=== PATIENT | female | born 2000 | race Caucasian/White ===

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

== ENCOUNTER 2021-03-23 | Emergency (ER) | payer OTHER, SELFPAY ==
--- NOTE | ~2021-03-23 | XR_ITS ---
XR chest 2V DATE: 03/23/2021 00:46 INDICATION: Palpitations TECHNIQUE: PA and lateral views COMPARISON: 10/05/2020 PA and lateral chest FINDINGS: Bilateral thoracolumbar spinal rods and pedicle screws are again noted. Normal heart size. No hilar or mediastinal enlargement. No pulmonary infiltrate or consolidation, pleural effusion or pulmonary vascular congestion or pneumo thorax is detected. IMPRESSION: No active cardiopulmonary disease Reviewed, dictated and finalized at location A.
[2021-03-23 00:05] VITALS: BP 118/84; PULSE 92; RESP 19; TEMP 36.8; O2SAT 100
--- NOTE | 2021-03-23 00:16 | ECG_ITS ---
Measurements Intervals [place] Rate: 82 P: 23 PA: 149 QRS: 17 QRSD: 84 T: 19 QT: 352 QTc: 412 Interpretive Statements SINUS RHYTHM WITH SINUS ARRHYTHMIA BASELINE ARTIFACT- I, II, III, AVR, AVL, AVF, V1, V4-V6 NORMAL ECG Electronically Signed On 03-23-2021 6:25:47 CDT by Orville Valdez D.O.
--- NOTE | 2021-03-23 00:27 | ED.ARRPALP ---
HPI - Arrhythmia/Palpitations General Chief Complaint: Arrhythmia/Palpitations Stated Complaint: Chest pain, tachycardia Time Seen by Provider: 03/23/21 00:06 Source: patient and family History of Present Illness HPI narrative: Patient presents with palpitations. Patient has a known history of tachycardia and is on corlinor. Is over the past couple weeks she has noted increase in her palpitations causing her dizziness and a sensation like she is going to pass out. Her symptoms are worse today so she wanted to come to the ER for evaluation. Her symptoms are palpitations and chest pain. Pain described as a squeezing sensation in the middle of her chest radiating up into her neck no clear aggravating or alleviating factors. She continues to have this sensation but it is improved. She denies recent fevers, cough, congestion, nausea, vomiting. Reports she been taking her medication as prescribed. She denies any urinary symptoms. Related Data Home Medications Medication Instructions Recorded Confirmed cinnamon bark 500 mg capsule 500 mg PO DAILY 07/19/20 docosahexaenoic acid 200 mg capsule mg PO 07/19/20 green tea leaf extract cap PO 07/19/20 liraglutide 0.6 mg/0.1 mL (18 mg/3 0.6 mg SUBCUT DAILY 07/19/20 mL) subcutaneous pen injector lorazepam 0.5 mg tablet 0.5 mg PO DAILY PRN 07/19/20 metformin 500 mg tablet 500 mg PO DAILY 07/19/20 omeprazole 40 mg capsule,delayed 40 mg PO DAILY 07/19/20 release pamabrom 50 mg tablet mg PO 07/19/20 zinc 50 mg tablet 50 mg PO DAILY 07/19/20 L norgest/e.estradiol-e.estrad 03/23/21 [Simpesse] blood sugar diagnostic [OneTouch 03/23/21 03/23/21 Ultra Test] blood-glucose meter [OneTouch 03/23/21 03/23/21 Ultra2 Meter] cetirizine mg 03/23/21 lancets [OneTouch Delica Plus 03/23/21 03/23/21 Lancet] liraglutide [Victoza 2-Librado] mg SUBCUT 03/23/21 metformin mg PO 03/23/21 pen needle, diabetic [BD 03/23/21 03/23/21 Ultra-Fine Short Pen Needle] Allergies Allergy/AdvReac Type Severity Reaction Status Date / Time mold Allergy Unknown Unknown Verified 03/23/21 00:09 ragweed pollen Allergy Unknown Unknown Verified 03/23/21 00:09 clortermine AdvReac Mild Itching Verified 03/23/21 00:09 onions AdvReac Intermediate Swelling Uncoded 03/23/21 00:09 vanilla AdvReac Intermediate Swelling Uncoded 03/23/21 00:09 Review of Systems Review of Systems: CONSTITUTIONAL: Denies fever, chills, or sweats. EYES: Denies visual changes, redness, or discharge. ENT: Denies rhinorrhea, congestion, sore throat, or otalgia. CARDIOVASCULAR: Reports chest pain and palpitations RESPIRATORY: Denies cough or dyspnea. GASTROINTESTINAL: Denies abdominal pain, nausea, vomiting, or diarrhea. GENITOURINARY: Denies dysuria or hematuria. SKIN: Denies rash or itching. MUSCULOSKELETAL: Denies back pain, joint pain, or myalgia. NEUROLOGIC: Denies headache, numbness, dizziness, or weakness. PSYCHIATRIC: Denies anxiety or depression. All systems reviewed & are unremarkable except as noted in HPI and below PMFSH Past Medical History Medical History (Updated 03/23/21 @ 02:42 by Sunil Toribio MD) Acid reflux ADHD Asthma Depression Dyslexia Surgical History Surgical History Previous back surgery Family History Family History Grandparent Diabetes mellitus Family history of hypercholesterolemia Hypertension Social History Social History Smoking status: Never smoker Alcohol intake: never Exam Narrative: GENERAL: Well-appearing, well-nourished, and in no acute distress. HEAD: Normocephalic, atraumatic. EYES: PERRLA and EOMI. ENT: Nares clear, no rhinorrhea or epistaxis. Mucous membranes moist. NECK: Supple. No masses. No JVD CHEST: Clear to auscultation. No respiratory distress. No wheezes rales or rhonchi HEART: R
[2021-03-23 00:35] VITALS: BP 113/74; PULSE 90; RESP 20; O2SAT 99
[2021-03-23] MEDS: SODIUM CHLORIDE 0.9% IV 1,000 ML 999 ML IV CONT (00:56)
[2021-03-23 01:02] LABS: Basophils Absolute Auto 0.1 K/mm3 (0.0-0.1); Basophils Percent Auto 0.5 % (0.2-1.2); Eosinophils Absolute Auto 0.2 K/mm3 (0-0.3); Eosinophils Percent Auto 1.3 % (0-4.4); Hematocrit 37.1 % (37.0-47.0); Hemoglobin 12.1 g/dL (12.0-15.0); Immature Granulocyte Absolute 0.07 K/mm3 (0.00-0.031); Immature Granulocyte Percent A 0.6 % (0-0.5); Lymphocytes Absolute Auto 4.91 K/mm3 (0.9-3.2); Lymphocytes Percent Auto 40.1 % (18.3-44.2); Mean Corpuscular HGB Conc 32.6 g/dl (32-36); Mean Corpuscular Hemoglobin 29.4 pg (26-34); Mean Platelet Volume 10.4 fl (7.4-10.4); Monocytes Absolute Auto 0.9 K/mm3 (0.1-0.6); Neutrophils Absolute Auto 6.2 K/mm3 (1.3-6.7); Neutrophils Percent Auto 50.5 % (45.5-73.1); Platelet Count Result 243 k/mm3 (150-375); Red Blood Count 4.12 M/mm3 (4.2-5.4); Red Cell Distribution Width 12.1 % (11.5-14.5); White Blood Count 12.3 K/mm3 (4.5-10.0)
[2021-03-23 01:03] LABS: Add Urine Microscopic? NO; Appearance Urine Clear (Clear); Bilirubin Urine Negative (Negative); Blood Urine Negative (Negative); Color Urine Colorless (Yellow); Glucose Urine UA Negative (Negative); Ketones Urine Negative (Negative); Leukocyte Esterase Ur Negative LEU/UL (Negative); Nitrate Urine Negative (Negative); Protein Urine Negative (Negative); Urobilinogen Urine Negative mg/dL (<2.0)
[2021-03-23 01:13] LABS: Alanine Aminotransferase 13 U/L (4-35); Albumin Level 4.5 g/dL (3.7-5.6); Alkaline Phosphatase 63 U/L (45-116); Anion Gap 10 mmol/L (8-16); Aspartate Amino Transferase 15 U/L (14-36); Bilirubin,Total 0.2 mg/dL (0.2-1.3); Blood Urea Nitrogen 12 mg/dL (8-21); Calcium 9.8 mg/dL (8.9-10.7); Carbon Dioxide 25 mmol/L (22-30); Chloride 104 mmol/L (98-107); Estimated CRCL calculation 127 ml/min; Estimated Glomerular Filt Rate > 60; Glucose 140 mg/dL (65-110); Potassium 3.9 mmol/L (3.4-5.0); Sodium 139 mmol/L (134-143)
[2021-03-23 01:20] LABS: Specific Grav Ur 1.002 (1.001-1.035)
[2021-03-23 01:23] LABS: Amphetamine Screen Urine Negative (Negative); Barbiturate Screen Urine Negative (Negative); Benzodiazepines Screen Urine Negative (Negative); Cannabinoid Screen Urine Negative (Negative); Cocaine Screen Urine Negative (Negative); Methadone Screen Urine Negative (Negative); Opiate Screen Urine Negative (Negative); Phencyclidine Screen Urine Negative (Negative)
[2021-03-23 01:31] LABS: Troponin I < 0.012 ng/mL (0.000-0.034)
[2021-03-23 02:56] VITALS: BP 111/79; PULSE 82; RESP 16; O2SAT 100
[2021-03-23 03:54] LABS: Glucose Point of Care 156 mg/dl (65-105)
== END 2021-03-23 03:00 | disposition home or self-care (01) ==
PROVIDERS: Emergency Provider Emergency Medicine; PCP Pediatrics
DX: R00.2 Palpitations (principal); J45.909 Unspecified asthma, uncomplicated; F32.9 Major depressive disorder, single episode, unspecified
CPT/HCPCS: 36415; 71046; 80053; 80307; 81003; 81025; 82948; 84443; 84484; 85025; 85380; 93005; 96360; 99284; J7030

== ENCOUNTER 2021-04-29 16:18 | Emergency (ER) | payer OTHER, SELFPAY ==
[2021-04-29 16:25] VITALS: BP 132/79; PULSE 90; RESP 20; TEMP 36.3; O2SAT 100
--- NOTE | 2021-04-29 16:51 | ED.FEMALEGU ---
HPI - Female Genitourinary General Chief complaint: Urogenital-Female Stated complaint: STD check Time Seen by Provider: 04/29/21 16:50 Source: patient Mode of arrival: ambulatory Limitations: no limitations History of Present Illness HPI Narrative: Patient reports that her boyfriend have some bumps on the scrotum for the last 2 to 3 weeks. She is concerned about the possibility of herpes. Patient denying any symptoms ,last sexual activity over 3 weeks ago. Patient denies any fever, chills, nausea, vomiting, vaginal bleeding or discharge or skin rash. Related Data Home Medications Medication Instructions Recorded Confirmed cinnamon bark 500 mg capsule 500 mg PO DAILY 07/19/20 docosahexaenoic acid 200 mg capsule mg PO 07/19/20 green tea leaf extract cap PO 07/19/20 liraglutide 0.6 mg/0.1 mL (18 mg/3 0.6 mg SUBCUT DAILY 07/19/20 mL) subcutaneous pen injector lorazepam 0.5 mg tablet 0.5 mg PO DAILY PRN 07/19/20 metformin 500 mg tablet 500 mg PO DAILY 07/19/20 omeprazole 40 mg capsule,delayed 40 mg PO DAILY 07/19/20 release pamabrom 50 mg tablet mg PO 07/19/20 zinc 50 mg tablet 50 mg PO DAILY 07/19/20 L norgest/e.estradiol-e.estrad 03/23/21 [Simpesse] blood sugar diagnostic [OneTouch 03/23/21 03/23/21 Ultra Test] blood-glucose meter [OneTouch 03/23/21 03/23/21 Ultra2 Meter] cetirizine mg 03/23/21 lancets [OneTouch Delica Plus 03/23/21 03/23/21 Lancet] liraglutide [Victoza 2-Librado] mg SUBCUT 03/23/21 metformin mg PO 03/23/21 pen needle, diabetic [BD 03/23/21 03/23/21 Ultra-Fine Short Pen Needle] Allergies Allergy/AdvReac Type Severity Reaction Status Date / Time mold Allergy Unknown Unknown Verified 03/23/21 00:09 ragweed pollen Allergy Unknown Unknown Verified 03/23/21 00:09 clortermine AdvReac Mild Itching Verified 03/23/21 00:09 onions AdvReac Intermediate Swelling Uncoded 03/23/21 00:09 vanilla AdvReac Intermediate Swelling Uncoded 03/23/21 00:09 Review of Systems Review of Systems: CONSTITUTIONAL: Denies fever, chills, or sweats. EYES: Denies visual changes, redness, or discharge. ENT: Denies rhinorrhea, congestion, sore throat, or otalgia. CARDIOVASCULAR: Denies chest pain, palpitations, or edema. RESPIRATORY: Denies cough or dyspnea. GASTROINTESTINAL: Denies abdominal pain, nausea, vomiting, or diarrhea. GENITOURINARY: Denies dysuria or hematuria. SKIN: Denies rash or itching. MUSCULOSKELETAL: Denies back pain, joint pain, or myalgia. NEUROLOGIC: Denies headache, numbness, or weakness. PSYCHIATRIC: Denies anxiety or depression. [facility] Past Medical History Medical History (Updated 04/29/21 @ 17:33 by Desmond Esparza MD) Acid reflux ADHD Asthma Depression Dyslexia Surgical History Surgical History Previous back surgery Family History Family History Grandparent Diabetes mellitus Family history of hypercholesterolemia Hypertension Social History Social History Smoking status: Never smoker Alcohol intake: never Exam Narrative: General appearance: Well-developed, well-nourished Skin: Normal color, no rash Chest and respiratory: Airway patent, no respiratory distress, no accessory muscle use Heart: Regular rate/rhythm Abdomen: Soft, nontender, no organomegaly, quiet bowel sounds Neurologic: Alert and oriented ?3, : External Female Exam: normal external appearance and normal appearance of the urethra Speculum Exam - Vagina: normal appearance of the vagina and normal vaginal discharge Speculum Exam - Cervix: normal appea
== END 2021-04-29 18:18 | disposition home or self-care (01) ==
LOC: ANHED 18:05
PROVIDERS: Emergency Provider Emergency Medicine; PCP Pediatrics
DX: Z20.2 Contact with and (suspected) exposure to infections with a predominantly sexual mode of transmission (principal); F32.A Depression, unspecified; F90.9 Attention-deficit hyperactivity disorder, unspecified type; Z87.19 Personal history of other diseases of the digestive system; Z87.09 Personal history of other diseases of the respiratory system
CPT/HCPCS: 99281

== ENCOUNTER 2022-01-07 03:28 | Emergency (ER) | payer MEDICARE, OTHER, MEDICAID, SELFPAY ==
[2022-01-07] VITALS (15 sets, daily range): BP systolic 107–128; BP diastolic 72–81; PULSE 72–84; RESP 16–17; TEMP 36.4; O2SAT 98–100
--- NOTE | ~2022-01-07 | XR_ITS ---
EXAMINATION: XR chest 2V 01/07/2022 04:22 INDICATION: Chest pain PROCEDURE: 2 view chest COMPARISON: 03/23/2021 FINDINGS: The lungs are clear. The cardiomediastinal silhouette is within normal limits. There are no pleural effusions. There is no pneumothorax suspected. There are Ko rods. IMPRESSION: 1: NO ACUTE CARDIOPULMONARY DISEASE. Reviewed, dictated and finalized at location A.
--- NOTE | 2022-01-07 03:38 | ECG_ITS ---
Measurements Intervals [place] Rate: 75 P: 38 [place]: 159 QRS: 29 QRSD: 86 T: 19 QT: 390 QTc: 436 Interpretive Statements SINUS RHYTHM BORDERLINE ECG Electronically Signed On 01-07-2022 7:12:04 CDT by Orville Valdez D.O.
[2022-01-07 03:58] LABS: Basophils Absolute Auto 0.1 K/mm3 (0.0-0.1); Basophils Percent Auto 0.6 % (0.2-1.2); Eosinophils Absolute Auto 0.2 K/mm3 (0-0.3); Eosinophils Percent Auto 1.7 % (0-4.4); Hematocrit 37.6 % (37.0-47.0); Hemoglobin 12.2 g/dL (12.0-15.0); Immature Granulocyte Percent A 0.9 % (0-0.5); Lymphocytes Absolute Auto 4.51 K/mm3 (0.9-3.2); Lymphocytes Percent Auto 42.4 % (18.3-44.2); Mean Corpuscular HGB Conc 32.4 g/dl (32-36); Mean Corpuscular Volume 89.5 fl (80-100); Mean Platelet Volume 10.3 fl (7.4-10.4); Monocytes Absolute Auto 0.8 K/mm3 (0.1-0.6); Neutrophils Percent Auto 47.4 % (45.5-73.1); Platelet Count Result 267 k/mm3 (150-375); Red Cell Distribution Width 12.2 % (11.5-14.5); White Blood Count 10.6 K/mm3 (4.5-10.0)
[2022-01-07 04:10] LABS: Alanine Aminotransferase 20 U/L (6-35); Albumin Level 4.2 g/dL (3.5-5.1); Alkaline Phosphatase 76 U/L (38-126); Anion Gap 8 mmol/L (8-16); Aspartate Amino Transferase 20 U/L (14-36); Bilirubin,Total 0.1 mg/dL (0.2-1.3); Blood Urea Nitrogen 13 mg/dL (7-17); Calcium 9.4 mg/dL (8.4-10.2); Carbon Dioxide 23 mmol/L (22-30); Chloride 107 mmol/L (98-107); Estimated Glomerular Filt Rate > 60; Glucose 172 mg/dL (65-110); Magnesium 1.8 mg/dL (1.6-2.3); Potassium 3.6 mmol/L (3.4-5.0); Sodium 138 mmol/L (137-145)
[2022-01-07 04:16] LABS: D Dimer 0.33 ug/mL (<0.48)
[2022-01-07 04:22] LABS: Troponin I < 0.012 ng/mL (0.000-0.034)
--- NOTE | 2022-01-07 04:32 | ED.GENADULT ---
HPI - General Adult General Chief complaint: Shortness of Breath/Dyspnea Stated complaint: difficulty breathing high heart rate Time Seen by Provider: 01/07/22 03:30 History of Present Illness HPI narrative: 21-year-old female presented to the emergency department for evaluation of tachycardia. Patient states over the course of the day she has had rapid heart rate and has had some associated shortness of breath and chest pain. Patient states she is supposed to be on cardiac medications but she is unsure. Patient follows up with cardiology but does not know who the sound effects supervisor is. Patient states her cardiology is at [facility]. Upon arrival to emergency room patient states that she has not chest pain. Patient is saturating at 99% on room air with clear lungs. Patient is not tachycardic. Related Data Home Medications Medication Instructions Recorded Confirmed cinnamon bark 500 mg capsule 500 mg PO DAILY 07/19/20 (Cinnamon) docosahexaenoic acid 200 mg mg PO 07/19/20 capsule ( DHA) green tea leaf extract (Green Tea cap PO 07/19/20 capsule) liraglutide 0.6 mg/0.1 mL (18 mg/3 0.6 mg subcut DAILY 07/19/20 mL) subcutaneous pen injector (Victoza 2-Librado) lorazepam 0.5 mg tablet 0.5 mg PO DAILY PRN 07/19/20 metformin 500 mg tablet 500 mg PO DAILY 07/19/20 omeprazole 40 mg capsule,delayed 40 mg PO DAILY 07/19/20 release pamabrom 50 mg tablet (Diurex Max) mg PO 07/19/20 zinc 50 mg tablet 50 mg PO DAILY 07/19/20 L norgest/E estradiol-E estrad 03/23/21 0.15 mg-30 mcg (84)/10 mcg(7) tabs,3mos (Simpesse) blood sugar diagnostic (OneTouch 03/23/21 03/23/21 Ultra Test strips) blood-glucose meter (OneTouch 03/23/21 03/23/21 Ultra2 Meter) cetirizine 10 mg tablet mg 03/23/21 lancets 33 gauge (OneTouch Delica 03/23/21 03/23/21 Plus Lancet) liraglutide 0.6 mg/0.1 mL (18 mg/3 mg subcut 03/23/21 mL) subcutaneous pen injector (Victoza 2-Librado) metformin 500 mg tablet,extended mg PO 03/23/21 release 24 hr pen needle, diabetic 31 gauge x 03/23/21 03/23/21 5/16 (BD Ultra-Fine Short Pen Needle) Allergies Allergy/AdvReac Type Severity Reaction Status Date / Time mold Allergy Unknown Unknown Verified 03/23/21 00:09 ragweed pollen Allergy Unknown Unknown Verified 03/23/21 00:09 clortermine AdvReac Mild Itching Verified 03/23/21 00:09 onions AdvReac Intermediate Swelling Uncoded 03/23/21 00:09 vanilla AdvReac Intermediate Swelling Uncoded 03/23/21 00:09 Review of Systems Review of Systems: CONSTITUTIONAL: Denies fever, chills, or sweats. EYES: Denies visual changes, redness, or discharge. ENT: Denies rhinorrhea, congestion, sore throat, or otalgia. CARDIOVASCULAR: See HPI RESPIRATORY: See HPI GASTROINTESTINAL: Denies abdominal pain, nausea, vomiting, or diarrhea. GENITOURINARY: Denies dysuria or hematuria. SKIN: Denies rash or itching. MUSCULOSKELETAL: Denies back pain, joint pain, or myalgia. NEUROLOGIC: Denies headache, numbness, or weakness. PSYCHIATRIC: Denies anxiety or depression. [facility] Past Medical History Medical History (Updated 01/07/22 @ 05:19 by Mikey Frost MD) Acid reflux ADHD Asthma Depression Dyslexia Surgical History Surgical History Previous back surgery Family History Family History Grandparent Diabetes mellitus Family history of hypercholesterolemia Hypertension Social History Social History Smoking status: Never smoker Alcohol intake: never Exam Narrative: APPEARANCE: Well appearing, no pain, no distress, well-nourished. HEAD: normocephalic, atraumatic. EYES: PERRLA/EOMI, conjunctivae clear. NOSE: Normal no drainage NECK: Supple. No adenopathy, no masses. RESPIRATORY: Airway patent, respirations nonlabored. Clear to auscultation bilaterally, no rales, rhonchi, wheezing
== END 2022-01-07 05:49 | disposition home or self-care (01) ==
PROVIDERS: Emergency Provider Emergency Medicine; PCP Pediatrics
DX: R00.2 Palpitations (principal); R06.00 Dyspnea, unspecified; J45.909 Unspecified asthma, uncomplicated; E11.9 Type 2 diabetes mellitus without complications; K21.9 Gastro-esophageal reflux disease without esophagitis; Z79.84 Long term (current) use of oral hypoglycemic drugs; Z79.899 Other long term (current) drug therapy; R94.31 Abnormal electrocardiogram [ECG] [EKG]
CPT/HCPCS: 36415; 71046; 80053; 83735; 84443; 84484; 85025; 85380; 93005; 99284

== ENCOUNTER 2022-04-02 17:11 | Emergency (ER) | payer MEDICARE, OTHER, MEDICAID, SELFPAY ==
--- NOTE | ~2022-04-02 | CT_ITS ---
EXAMINATION: CT thoracic lumbar wo con DATE: 04/02/2022 20:51 INDICATION: back pain all over , s/p fall . TECHNIQUE: Computed tomography (CT) of the thoracic and lumbar spine was performed without intravenou s contrast. The dose-length product was 1495.50 mGy-cm. COMPARISON: None FINDINGS: THORACIC SPINE: Mild thoracic scoliosis. Extensive, multilevel posterior hardware fusion, without hardware fracture o r abnormal perihilar hardware lucency. Vertebral body alignment intact. Vertebral body heights preser estela. No disc space narrowing. No traumatic malalignment or fracture. Visualized lung parenchyma is cl ear. LUMBAR SPINE: Posterior fusion hardware extending from the thoracic spine down to the level of L4, with multilevel osseous facet fusion in the lumbar spine. No hardware fracture. Perihilar hardware lucency about the pedicle screws in L4. 5 nonrib-bearing lumbar-type vertebral bodies. Pedicles intact. Normal vertebra l body alignment. Vertebral body heights preserved. Disc spaces maintained. Normal facets and posteri or elements. IMPRESSION: 1. No acute fracture or traumatic malalignment in the thoracic or lumbar spine. 2. Extensive posterior thoracolumbar fusion hardware, without hardware fracture. 3. Hardware lucency about the pedicle screws in L4, may reflect some degree of loosening. Reviewed, dictated and finalized at location K. IMPRESSION: 1. No acute fracture or traumatic malalignment in the thoracic or lumbar spine. 2. Extensive posterior thoracolumbar fusion hardware, without hardware fracture . 3. Hardware lucency about the pedicle screws in L4, may reflect some degree of loosening.
--- NOTE | ~2022-04-02 | CT_ITS ---
EXAMINATION: CT cervical spine wo con DATE: 04/02/2022 20:51 INDICATION: head injury s/p fall TECHNIQUE: Computed tomography (CT) of the cervical spine was performed without intravenous contrast. Automated exposure control and iterative reconstruction technique were employed. The dose-length pro duct was 393.13 mGy-cm. COMPARISON: None FINDINGS: Vertebral Body Alignment: Intact. Cervical spine straightening, as can occur with muscle spasm or pos itioning. Craniocervical and atlantoaxial alignment: No degenerative change. Alignment intact. Osseous structures/fracture: No evidence of a lytic or blastic process in the visualized spine. No e vidence of acute fracture. Cervical soft tissues: The paraspinal soft tissues planes are maintained. Degenerative changes: No significant degenerative changes. IMPRESSION: No acute fracture or traumatic malalignment in the cervical spine. Reviewed, dictated and finalized at location K.
--- NOTE | ~2022-04-02 | CT_ITS ---
EXAMINATION: CT brain wo con DATE: 04/02/2022 20:51 INDICATION: head injury, fall x1 wk aog, hit back of head . TECHNIQUE: Computed tomography (CT) of the head was performed without intravenous contrast. The mA wa s adjusted according to patient size. Iterative reconstruction technique was employed. The dose-lengt h product was 605.33 mGy-cm. COMPARISON: None FINDINGS: No acute intracranial hemorrhage or extra-axial fluid collection. No hydrocephalus, mass, or herniation. No acute ischemic infarct. Unremarkable dural venous sinus attenuation. No acute osseous abnormality. The aerated spaces are clear. IMPRESSION: No acute intracranial process. Reviewed, dictated and finalized at location K.
[2022-04-02 18:15] VITALS: BP 128/75; PULSE 93; RESP 18; TEMP 36.4; O2SAT 100
--- NOTE | 2022-04-02 20:03 | ED.FALL ---
HPI - Fall General Chief Complaint: Fall Stated Complaint: fall hit head and twisted back Time Seen by Provider: 04/02/22 19:15 History of Present Illness HPI Narrative: 21-year-old female history of diabetes tachycardia presents to the emergency room for evaluation of head injury that occurred 7 days ago. Patient states that she was in her room when she tripped falling backwards striking her head on a dresser and then landing on her back ultimately. Patient reports positive LOC of 20 minutes, even though is has not been confirmed. Patient reports dizziness and nausea since the injury. Patient reports pain to the posterior scalp, neck, middle and lower back. Patient denies any vomiting. Any somnolence. Patient denies any new visual or hearing changes. Patient denies taking any medications to alleviate her pain. Related Data Home Medications Medication Instructions Recorded Confirmed cinnamon bark 500 mg capsule 500 mg PO DAILY 07/19/20 01/26/22 (Cinnamon) docosahexaenoic acid 200 mg mg PO 07/19/20 01/26/22 capsule ( DHA) green tea leaf extract (Green Tea cap PO 07/19/20 01/26/22 capsule) liraglutide 0.6 mg/0.1 mL (18 mg/3 0.6 mg subcut DAILY 07/19/20 01/26/22 mL) subcutaneous pen injector (L[employer]ty Hydro 2-Librado) lorazepam 0.5 mg tablet 0.5 mg PO DAILY PRN 07/19/20 01/26/22 metformin 500 mg tablet 500 mg PO DAILY 07/19/20 01/26/22 omeprazole 40 mg capsule,delayed 40 mg PO DAILY 07/19/20 01/26/22 release pamabrom 50 mg tablet (Diurex Max) mg PO 07/19/20 zinc 50 mg tablet 50 mg PO DAILY 07/19/20 01/26/22 L norgest/E estradiol-E estrad 03/23/21 01/26/22 0.15 mg-30 mcg (84)/10 mcg(7) tabs,3mos (Simpesse) blood sugar diagnostic (OneTouch 03/23/21 03/23/21 Ultra Test strips) blood-glucose meter (Chrono TherapeuticsTouch 03/23/21 01/26/22 Ultra2 Meter) cetirizine 10 mg tablet mg 03/23/21 01/26/22 lancets 33 gauge (OneTouch Delica 03/23/21 03/23/21 Plus Lancet) liraglutide 0.6 mg/0.1 mL (18 mg/3 mg subcut 03/23/21 01/26/22 mL) subcutaneous pen injector (Cignisza 2-Librado) metformin 500 mg tablet,extended mg PO 03/23/21 01/26/22 release 24 hr pen needle, diabetic 31 gauge x 03/23/21 03/23/2110/31 (BD Ultra-Fine Short Pen Needle) Allergies Allergy/AdvReac Type Severity Reaction Status Date / Time mold Allergy Unknown Unknown Verified 04/02/22 18:20 ragweed pollen Allergy Unknown Unknown Verified 04/02/22 18:20 clortermine AdvReac Mild Itching Verified 04/02/22 18:20 Review of Systems Review of Systems: CONSTITUTIONAL: Denies fever, chills, or sweats. EYES: Denies visual changes, redness, or discharge. ENT: Denies rhinorrhea, congestion, sore throat, or otalgia. CARDIOVASCULAR: Denies chest pain, palpitations, or edema. RESPIRATORY: Denies cough or dyspnea. GASTROINTESTINAL: Denies abdominal pain, nausea, vomiting, or diarrhea. GENITOURINARY: Denies dysuria or hematuria. SKIN: Denies rash or itching. MUSCULOSKELETAL: Reports back pain, neck pain NEUROLOGIC: Reports headache, dizziness PSYCHIATRIC: Denies anxiety or depression. [facility] Past Medical History Medical History (Updated 04/02/22 @ 21:38 by Camron Arellano APRN) Acid reflux ADHD Asthma Depression Dyslexia Surgical History Surgical History Previous back surgery Family History Family History Grandparent Diabetes mellitus Family history of hypercholesterolemia Hypertension Social History Social History Smoking status: Never smoker Alcohol intake: never Substance use: never Substance use type: does not use Gender identity (if verbalized by the patient): Female Sexual Orientation (if Verbalized by the Patient): Straight or Heterosexual Exam Narrative: GENERAL: Well-appearing, well-nourished, no physical limitations, and in no acute dist
[2022-04-02 20:17] VITALS: BP 98/53; PULSE 90; RESP 20; TEMP 36.2; O2SAT 100
--- NOTE | 2022-04-02 20:35 | PC.NURSE ---
Patient taken to CT via stretcher.
== END 2022-04-02 22:21 | disposition home or self-care (01) ==
PROVIDERS: Emergency Provider Nurse Practitioner Family; PCP Internal Medicine
DX: S06.0XAA Concussion with loss of consciousness status unknown, initial encounter (principal); S19.9XXA Unspecified injury of neck, initial encounter; S39.92XA Unspecified injury of lower back, initial encounter; E11.9 Type 2 diabetes mellitus without complications; J45.909 Unspecified asthma, uncomplicated; K21.9 Gastro-esophageal reflux disease without esophagitis; R48.0 Dyslexia and alexia; F90.9 Attention-deficit hyperactivity disorder, unspecified type; F32.A Depression, unspecified; Z79.85 Long-term (current) use of injectable non-insulin antidiabetic drugs; Z79.84 Long term (current) use of oral hypoglycemic drugs; W01.190A Fall on same level from slipping, tripping and stumbling with subsequent striking against furniture, initial encounter
CPT/HCPCS: 70450; 72125; 72128; 72131; 81025; 99284

== ENCOUNTER 2022-06-28 17:29 | Emergency (ER) | payer MEDICARE, OTHER, MEDICAID, SELFPAY ==
--- NOTE | ~2022-06-28 | XR_ITS ---
EXAMINATION: XR chest 1V portable Exam Date/Time: 06/28/2022 17:46 FIELD TECH HISTORY: cough SOB Comparison: 01/07/2022. RESULT: Lines, tubes, and devices: Partially visualized thoracic fusion hardware. Lungs and pleura: Low lung volumes with crowding, otherwise clear. Cardiomediastinal silhouette: Stable. Other: No acute osseous or upper abdominal finding. IMPRESSION: No acute cardiopulmonary process. Reviewed, dictated and finalized at location K. D TECH
[2022-06-28 17:39] VITALS: BP 104/73; PULSE 130; RESP 26; TEMP 37.6; O2SAT 98
[2022-06-28 17:45] VITALS: O2SAT 98
--- NOTE | 2022-06-28 17:48 | ECG_ITS ---
Measurements Intervals [place] Rate: 124 P: 40 MD: 124 QRS: 24 QRSD: 84 T: 13 QT: 312 QTc: 449 Interpretive Statements SINUS TACHYCARDIA NONSPECIFIC T-WAVE ABNORMALITY- ANT/INF LEADS ABNORMAL ECG COMPARED TO ECG 01/07/2022 04:50:49 SINUS TACHYCARDIA NOW PRESENT T-WAVE ABNORMALITY NOW PRESENT Electronically Signed On 06-28-2022 20:10:56 TOWEL HEMMER by Orville Valdez D.O.
--- NOTE | 2022-06-28 18:15 | ED.SOB ---
HPI - SOB/Dyspnea General Chief Complaint: Shortness of Breath/Dyspnea Stated Complaint: SOB Time Seen by Provider: 06/28/22 17:46 Source: patient, family and EMS Mode of arrival: EMS Limitations: no limitations History of Present Illness HPI Narrative: This is a 22-year-old female that presents to the emergency department for shortness of breath ongoing over the last couple of days. She was seen at urgent care yesterday and started on a steroid taper. Reports associated fever, cough, congestion, sore throat, and fatigue. Reports some recent sick contacts in her family members. Reports pleuritic chest pain. Reports burning epigastric pain with nausea and vomiting. Denies lower extremity edema. Related Data Home Medications Medication Instructions Recorded Confirmed cinnamon bark 500 mg capsule 500 mg PO DAILY 07/19/20 01/26/22 (Cinnamon) docosahexaenoic acid 200 mg mg PO 07/19/20 01/26/22 capsule ( DHA) green tea leaf extract (Green Tea cap PO 07/19/20 01/26/22 capsule) liraglutide 0.6 mg/0.1 mL (18 mg/3 0.6 mg subcut DAILY 07/19/20 01/26/22 mL) subcutaneous pen injector (Victoza 2-Librado) lorazepam 0.5 mg tablet 0.5 mg PO DAILY PRN 07/19/20 01/26/22 metformin 500 mg tablet 500 mg PO DAILY 07/19/20 01/26/22 omeprazole 40 mg capsule,delayed 40 mg PO DAILY 07/19/20 01/26/22 release pamabrom 50 mg tablet (Diurex Max) mg PO 07/19/20 zinc 50 mg tablet 50 mg PO DAILY 07/19/20 01/26/22 blood sugar diagnostic (EurolingTouch 03/23/21 03/23/21 Ultra Test strips) blood-glucose meter (EurolingTouch 03/23/21 01/26/22 Ultra2 Meter) cetirizine 10 mg tablet mg 03/23/21 01/26/22 lancets 33 gauge (OneTouch Delica 03/23/21 03/23/21 Plus Lancet) liraglutide 0.6 mg/0.1 mL (18 mg/3 mg subcut 03/23/21 01/26/22 mL) subcutaneous pen injector (Victoza 2-Librado) metformin 500 mg tablet,extended mg PO 03/23/21 01/26/22 release 24 hr pen needle, diabetic 31 gauge x 03/23/21 03/23/2110/31 (BD Ultra-Fine Short Pen Needle) Allergies Allergy/AdvReac Type Severity Reaction Status Date / Time mold Allergy Unknown Unknown Verified 04/02/22 18:20 ragweed pollen Allergy Unknown Unknown Verified 04/02/22 18:20 clortermine AdvReac Mild Itching Verified 04/02/22 18:20 Review of Systems Review of Systems: CONSTITUTIONAL: Reports fever EYES: Denies redness, or discharge. ENT: Reports rhinorrhea, congestion, sore throat CARDIOVASCULAR: Reports chest pain. Denies edema. RESPIRATORY: Reports cough and dyspnea. GASTROINTESTINAL: Reports abdominal pain, nausea, vomiting All systems reviewed & are unremarkable except as noted in HPI and below PMFSH Past Medical History Medical History (Updated 06/28/22 @ 19:49 by Christa Sanderson PA-C) Acid reflux ADHD Asthma Depression Dyslexia Type 2 diabetes mellitus Surgical History Surgical History Previous back surgery Family History Family History Grandparent Diabetes mellitus Family history of hypercholesterolemia Hypertension Social History Social History Smoking status: Never smoker Alcohol intake: never Substance use: never Substance use type: does not use Gender identity (if verbalized by the patient): Female Sexual Orientation (if Verbalized by the Patient): Straight or Heterosexual Exam Narrative: GENERAL: Well-appearing, well-nourished, and in no acute distress. HEAD: Normocephalic, atraumatic. EYES: EOMI. ENT: Nares clear, no rhinorrhea or epistaxis. Mucous membranes moist. Oropharynx without tonsillar hypertrophy exudate or other lesions. Bilateral TMs pearly pope non-bulging NECK: Supple. No adenopathy or masses. CHEST: Clear to auscultation. No respiratory distress. No wheezes rales or rhonchi HEART: Regular rate and rhythm. No murmur heard. Normal peripheral pulses
[2022-06-28] MEDS: SODIUM CHLORIDE 0.9% IV 1,000 ML 999 ML IV CONT (18:34)
[2022-06-28] MEDS: FAMOTIDINE 20 MG/2 ML VIAL IV PUSH (18:34)
[2022-06-28 18:55] LABS: Basophils Percent Auto 0.2 % (0.2-1.2); Hematocrit 37.2 % (37.0-47.0); Hemoglobin 11.8 g/dL (12.0-15.0); Immature Granulocyte Percent A 0.9 % (0-0.5); Lymphocytes Absolute Auto 0.64 K/mm3 (0.9-3.2); Mean Corpuscular HGB Conc 31.7 g/dl (32-36); Mean Corpuscular Hemoglobin 28.6 pg (26-34); Mean Corpuscular Volume 90.1 fl (80-100); Mean Platelet Volume 10.6 fl (7.4-10.4); Monocytes Absolute Auto 1.3 K/mm3 (0.1-0.6); Monocytes Percent Auto 12.6 % (2.6-8.5); Neutrophils Absolute Auto 8.5 K/mm3 (1.3-6.7); Neutrophils Percent Auto 80.3 % (45.5-73.1); Platelet Count Result 240 k/mm3 (150-375); Red Blood Count 4.13 M/mm3 (4.2-5.4); Red Cell Distribution Width 12.4 % (11.5-14.5); White Blood Count 10.6 K/mm3 (4.5-10.0)
[2022-06-28 19:01] VITALS: BP 110/73; PULSE 123; RESP 24; O2SAT 99
[2022-06-28 19:03] LABS: Alanine Aminotransferase 21 U/L (6-35); Albumin Level 4.4 g/dL (3.5-5.1); Alkaline Phosphatase 67 U/L (38-126); Anion Gap 9 mmol/L (8-16); Aspartate Amino Transferase 21 U/L (14-36); Bilirubin,Total 0.2 mg/dL (0.2-1.3); Blood Urea Nitrogen 16 mg/dL (7-17); Calcium 8.8 mg/dL (8.4-10.2); Carbon Dioxide 25 mmol/L (22-30); Chloride 101 mmol/L (98-107); Estimated CRCL calculation 134 ml/min; Estimated Glomerular Filt Rate > 60; Glucose 126 mg/dL (65-110); Lipase 55 U/L (23-300); Potassium 4.1 mmol/L (3.4-5.0); Sodium 135 mmol/L (137-145)
[2022-06-28 19:04] LABS: INR 1.1; Prothrombin Time 13.7 Seconds (11.1-14.7)
[2022-06-28 19:05] LABS: Partial Thromboplastin Time 25.9 SECONDS (22.3-36.8)
[2022-06-28 19:14] LABS: Troponin I < 0.012 ng/mL (0.000-0.034)
[2022-06-28 19:20] LABS: D Dimer 0.42 ug/mL (<0.48)
[2022-06-28 19:29] LABS: Influenza A QL RT-PCR Positive (Negative); Influenza B QL RT-PCR Negative (Negative); SARS-CoV-2 RNA PCR Negative
[2022-06-28 19:31] VITALS: BP 101/65; PULSE 118; RESP 19; O2SAT 98
[2022-06-28 20:00] VITALS: PULSE 106; RESP 19; O2SAT 98
== END 2022-06-28 20:15 | disposition home or self-care (01) ==
PROVIDERS: Emergency Medicine; Emergency Provider Physician Assistant; PCP Nurse Practitioner Family
DX: J10.1 Influenza due to other identified influenza virus with other respiratory manifestations (principal); Z20.822 Contact with and (suspected) exposure to COVID-19; J45.909 Unspecified asthma, uncomplicated; D64.9 Anemia, unspecified; K21.9 Gastro-esophageal reflux disease without esophagitis; R48.0 Dyslexia and alexia; F90.9 Attention-deficit hyperactivity disorder, unspecified type; F32.A Depression, unspecified; Z79.84 Long term (current) use of oral hypoglycemic drugs; Z79.85 Long-term (current) use of injectable non-insulin antidiabetic drugs; R00.0 Tachycardia, unspecified; R94.31 Abnormal electrocardiogram [ECG] [EKG]
CPT/HCPCS: 36415; 71045; 80053; 81025; 83690; 84484; 85025; 85380; 85610; 85730; 87636; 93005; 96361; 96365; 96375; 99284; J0131; J7030

== ENCOUNTER 2022-09-02 00:59 | Emergency (ER) | payer MEDICARE, OTHER, MEDICAID, SELFPAY ==
[2022-09-02 01:04] VITALS: BP 137/85; PULSE 101; RESP 16; TEMP 36.4; O2SAT 100
--- NOTE | 2022-09-02 01:50 | ED.GENADULT ---
HPI - General Adult General Chief complaint: Ear Stated complaint: right ear was bleeding Time Seen by Provider: 09/02/22 01:39 History of Present Illness HPI narrative: Is a 22-year-old female presenting ED with a chief complaint of right ear pain. Says been hurting for weeks but starting 2 days ago she started have a little bit of bleeding that has since resolved. She has decreased hearing on that ear. She says she has been cleaning it with alcohol, peroxide and Q-tips. She denies fever, chills, nausea vomiting diarrhea urinary symptoms. Related Data Home Medications Medication Instructions Recorded Confirmed cinnamon bark 500 mg capsule 500 mg PO DAILY 07/19/20 01/26/22 (Cinnamon) docosahexaenoic acid 200 mg mg PO 07/19/20 01/26/22 capsule ( DHA) green tea leaf extract (Green Tea cap PO 07/19/20 01/26/22 capsule) liraglutide 0.6 mg/0.1 mL (18 mg/3 0.6 mg subcut DAILY 07/19/20 01/26/22 mL) subcutaneous pen injector ([employer] 2-Librado) lorazepam 0.5 mg tablet 0.5 mg PO DAILY PRN 07/19/20 01/26/22 metformin 500 mg tablet 500 mg PO DAILY 07/19/20 01/26/22 omeprazole 40 mg capsule,delayed 40 mg PO DAILY 07/19/20 01/26/22 release pamabrom 50 mg tablet (Diurex Max) mg PO 07/19/20 zinc 50 mg tablet 50 mg PO DAILY 07/19/20 01/26/22 blood sugar diagnostic (OneTouch 03/23/21 03/23/21 Ultra Test strips) blood-glucose meter (OneTouch 03/23/21 01/26/22 Ultra2 Meter) cetirizine 10 mg tablet mg 03/23/21 01/26/22 lancets 33 gauge (OneTouch Delica 03/23/21 03/23/21 Plus Lancet) liraglutide 0.6 mg/0.1 mL (18 mg/3 mg subcut 03/23/21 01/26/22 mL) subcutaneous pen injector (Victoza 2-Librado) metformin 500 mg tablet,extended mg PO 03/23/21 01/26/22 release 24 hr pen needle, diabetic 31 gauge x 03/23/21 03/23/21 5/16 (BD Ultra-Fine Short Pen Needle) Allergies Allergy/AdvReac Type Severity Reaction Status Date / Time mold Allergy Unknown Unknown Verified 09/02/22 01:01 ragweed pollen Allergy Unknown Unknown Verified 09/02/22 01:01 pepper (genus Capsicum) Allergy Rash Verified 09/02/22 01:01 clortermine AdvReac Mild Itching Verified 09/02/22 01:01 [facility] Past Medical History Medical History Acid reflux ADHD Asthma Depression Dyslexia Type 2 diabetes mellitus Surgical History Surgical History Previous back surgery Family History Family History Grandparent Diabetes mellitus Family history of hypercholesterolemia Hypertension Social History Social History Smoking status: Never smoker Alcohol intake: never Substance use: never Substance use type: does not use Living arrangements: with family Occupation/Education: unemployed Gender identity (if verbalized by the patient): Female Sexual Orientation (if Verbalized by the Patient): Straight or Heterosexual Exam Narrative: APPEARANCE: No apparent distress. Head: Patient has erythema of the right optic canal with rupture of the tympanic membrane. Left tympanic membrane is normal. EYES: EOMI, NOSE: Atraumatic NECK: Trachea midline RESPIRATORY: No increased rate of breathing CARDIOVASCULAR: RRR, ABDOMINAL: Non-distended MUSCULOSKELETAl: No obvious deformities NEURO: Alert. Moving 4/4 extremities SKIN:: Warm, dry. Normal color PSYCHIATRIC: Normal affect Course Vital Signs Vital signs: Vital Signs Temperature 97.6 F 09/02/22 01:04 Pulse Rate 101 H 09/02/22 01:04 Respiratory Rate 16 09/02/22 01:04 Blood Pressure 137/85 09/02/22 01:04 Pulse Oximetry 100 09/02/22 01:04 Oxygen Delivery Room Air 09/02/22 01:04 Temperature 97.6 F 09/02/22 01:04 Pulse Rate 101 H 09/02/22 01:04 Respiratory Rate 16 09/02/22 01:04 Blood Pressure 137/85 09/02/22 01:04 Pulse O
== END 2022-09-02 02:27 | disposition home or self-care (01) ==
PROVIDERS: Emergency Provider Emergency Medicine; PCP Nurse Practitioner Family
DX: H60.91 Unspecified otitis externa, right ear (principal); H72.91 Unspecified perforation of tympanic membrane, right ear; E11.9 Type 2 diabetes mellitus without complications; F90.9 Attention-deficit hyperactivity disorder, unspecified type; F32.A Depression, unspecified; K21.9 Gastro-esophageal reflux disease without esophagitis; Z79.84 Long term (current) use of oral hypoglycemic drugs; Z79.899 Other long term (current) drug therapy
CPT/HCPCS: 99283

== ENCOUNTER 2022-09-13 20:05 | Emergency (ER) | payer MEDICARE, OTHER, MEDICAID, SELFPAY ==
[2022-09-13 20:11] VITALS: BP 117/68; PULSE 99; RESP 21; TEMP 36.5; O2SAT 100
--- NOTE | 2022-09-13 20:18 | ECG_ITS ---
Measurements Intervals [place] Rate: 100 P: 26 MN: 147 QRS: 28 QRSD: 92 T: 23 QT: 353 QTc: 456 Interpretive Statements SINUS TACHYCARDIA BORDERLINE ECG COMPARED TO ECG 06/28/2022 18:35:15 HEART RATE HAS DECREASED Electronically Signed On 09-13-2022 21:08:26 CDT by Orville Valdez D.O.
--- NOTE | 2022-09-13 20:29 | ED.GENADULT ---
HPI - General Adult General Chief complaint: Allergic Reaction Stated complaint: SOB allergic reaction to pepper Time Seen by Provider: 09/13/22 20:17 History of Present Illness HPI narrative: This is a 22-year-old female presenting ED for allergic reaction. Patient states she is allergic to pepper and had some at a restaurant that she was at. It is associated with some shortness of breath, sensation of throat swelling and a itchy rash on her left arm. She took 20 mg of Claritin in her symptoms are now improving. She currently is not having trouble breathing, dizziness lightheadedness rash or GI symptoms. Patient typically carries an EpiPen with her but needs a refill. Patient was seen approximately 10 days ago for acute otitis externa and possible tympanic membrane rupture. She has not followed with ENT but says that her symptoms have improved. Related Data Home Medications Medication Instructions Recorded Confirmed cinnamon bark 500 mg capsule 500 mg PO DAILY 07/19/20 01/26/22 (Cinnamon) docosahexaenoic acid 200 mg mg PO 07/19/20 01/26/22 capsule ( DHA) green tea leaf extract (Green Tea cap PO 07/19/20 01/26/22 capsule) liraglutide 0.6 mg/0.1 mL (18 mg/3 0.6 mg subcut DAILY 07/19/20 01/26/22 mL) subcutaneous pen injector ([employer] 2-Librado) lorazepam 0.5 mg tablet 0.5 mg PO DAILY PRN 07/19/20 01/26/22 metformin 500 mg tablet 500 mg PO DAILY 07/19/20 01/26/22 omeprazole 40 mg capsule,delayed 40 mg PO DAILY 07/19/20 01/26/22 release pamabrom 50 mg tablet (Diurex Max) mg PO 07/19/20 zinc 50 mg tablet 50 mg PO DAILY 07/19/20 01/26/22 blood sugar diagnostic (VivorteTouch 03/23/21 03/23/21 Ultra Test strips) blood-glucose meter (VivorteTouch 03/23/21 01/26/22 Ultra2 Meter) cetirizine 10 mg tablet mg 03/23/21 01/26/22 lancets 33 gauge (OneTouch Delica 03/23/21 03/23/21 Plus Lancet) liraglutide 0.6 mg/0.1 mL (18 mg/3 mg subcut 10/06/21 08/11/22 mL) subcutaneous pen injector ([employer] 2-Librado) metformin 500 mg tablet,extended mg PO 03/23/21 01/26/22 release 24 hr pen needle, diabetic 31 gauge x 03/23/21 03/23/21 5/16 (BD Ultra-Fine Short Pen Needle) Allergies Allergy/AdvReac Type Severity Reaction Status Date / Time mold Allergy Unknown Unknown Verified 09/13/22 20:18 ragweed pollen Allergy Unknown Unknown Verified 09/13/22 20:18 pepper (genus Capsicum) Allergy Rash Verified 09/13/22 20:18 clortermine AdvReac Mild Itching Verified 09/13/22 20:18 PMFSH Past Medical History Medical History Acid reflux ADHD Asthma Depression Dyslexia Type 2 diabetes mellitus Surgical History Surgical History Previous back surgery Family History Family History Grandparent Diabetes mellitus Family history of hypercholesterolemia Hypertension Social History Social History Smoking status: Never smoker Alcohol intake: never Substance use: never Substance use type: does not use Living arrangements: with family Occupation/Education: unemployed Gender identity (if verbalized by the patient): Female Sexual Orientation (if Verbalized by the Patient): Straight or Heterosexual Exam Narrative: APPEARANCE: No apparent distress. Head: Right tympanic membrane is intact with mild erythema. Left TM membrane is normal. no swelling of the throat EYES: EOMI, NOSE: Atraumatic NECK: Trachea midline RESPIRATORY: No increased rate of breathing , no wheezing CARDIOVASCULAR: RRR, ABDOMINAL: Non-distended MUSCULOSKELETAl: No obvious deformities NEURO: Alert. Moving 4/4 extremities SKIN:: Warm, dry. Normal color, No visible hives in the left arm. PSYCHIATRIC: Normal affect Course Vital Signs Vital signs: Vital Signs Temperature 97.7 F 09/13/22 20:11 Pu
[2022-09-13] MEDS: FAMOTIDINE 20 MG/2 ML VIAL 40 MG IV PUSH (20:37)
[2022-09-13] MEDS: diphenhydrAMINE HCl INJ 50 MG/ML VIAL IV PUSH (20:37)
[2022-09-13 20:49] VITALS: BP 128/88; PULSE 75; O2SAT 99
== END 2022-09-13 20:50 | disposition home or self-care (01) ==
LOC: ANHED 20:39
PROVIDERS: Emergency Provider Emergency Medicine; PCP Nurse Practitioner Family
DX: T78.1XXA Other adverse food reactions, not elsewhere classified, initial encounter (principal); R06.02 Shortness of breath; E11.9 Type 2 diabetes mellitus without complications
CPT/HCPCS: 93005; 96374; 96375; 99284; J1100; J1200

== ENCOUNTER 2022-09-26 16:31 | Emergency (ER) | payer MEDICARE, OTHER, MEDICAID, SELFPAY ==
[2022-09-26 16:32] VITALS: BP 146/79; PULSE 103; RESP 17; TEMP 36.5; O2SAT 99
[2022-09-26] MEDS: methylPREDNISolone SOD SUCC 125 MG VIAL IM (17:01)
[2022-09-26] MEDS: diphenhydrAMINE HCl INJ 50 MG/ML VIAL 25 MG IM (17:01)
--- NOTE | 2022-09-26 17:40 | ED.ALLEREA ---
HPI - Allergic Reaction General Chief complaint: Allergic Reaction Stated complaint: allergic reaction Time Seen by Provider: 09/26/22 16:48 Source: patient and family Mode of arrival: ambulatory Limitations: no limitations History of Present Illness HPI narrative: 22-year-old here with complaints of possible allergic reaction. Patient states she is allergic to pepper, she ate some food items with pepper in it but not realizing it develops some swelling in the throat she used her EpiPen. Presently she states her throat is still tight. No difficulty breathing no rash noted. MD complaint: allergic reaction Onset (ago): hour(s) (1) Exposure: food Symptoms: difficulty swallowing Severity: moderate Treatment prior to arrival: epinephrine Previous Allergic Reaction History: prior ED visit(s) Related Data Home Medications Medication Instructions Recorded Confirmed cinnamon bark 500 mg capsule 500 mg PO DAILY 07/19/20 01/26/22 (Cinnamon) docosahexaenoic acid 200 mg mg PO 07/19/20 01/26/22 capsule ( DHA) green tea leaf extract (Green Tea cap PO 07/19/20 01/26/22 capsule) liraglutide 0.6 mg/0.1 mL (18 mg/3 0.6 mg subcut DAILY 07/19/20 01/26/22 mL) subcutaneous pen injector (Glamitza 2-Librado) lorazepam 0.5 mg tablet 0.5 mg PO DAILY PRN 07/19/20 01/26/22 metformin 500 mg tablet 500 mg PO DAILY 07/19/20 01/26/22 omeprazole 40 mg capsule,delayed 40 mg PO DAILY 07/19/20 01/26/22 release pamabrom 50 mg tablet (Diurex Max) mg PO 07/19/20 zinc 50 mg tablet 50 mg PO DAILY 07/19/20 01/26/22 blood sugar diagnostic (OneTouch 03/23/21 03/23/21 Ultra Test strips) blood-glucose meter (OneTouch 03/23/21 01/26/22 Ultra2 Meter) cetirizine 10 mg tablet mg 03/23/21 01/26/22 lancets 33 gauge (OneTouch Delica 03/23/21 03/23/21 Plus Lancet) liraglutide 0.6 mg/0.1 mL (18 mg/3 mg subcut 03/23/21 01/26/22 mL) subcutaneous pen injector ([employer] 2-Librado) metformin 500 mg tablet,extended mg PO 03/23/21 01/26/22 release 24 hr pen needle, diabetic 31 gauge x 03/23/21 03/23/2110/31 (BD Ultra-Fine Short Pen Needle) Allergies Allergy/AdvReac Type Severity Reaction Status Date / Time mold Allergy Unknown Unknown Verified 09/13/22 20:18 ragweed pollen Allergy Unknown Unknown Verified 09/13/22 20:18 pepper (genus Capsicum) Allergy Rash Verified 09/13/22 20:18 clortermine AdvReac Mild Itching Verified 09/13/22 20:18 Review of Systems Review of Systems: All systems reviewed & are unremarkable except as noted in HPI and below Constitutional: Constitutional: Reports no additional constitutional complaints Eyes: Eyes: Reports no additional eye complaints ENT: Reports system reviewed and no additional complaints, except as documented Cardiovascular: Cardiovascular: Reports no additional cardiovascular complaints Respiratory: Respiratory: Reports no additional respiratory complaints Gastrointestinal: Gastrointestinal: Reports no additional gastrointestinal complaints Musculoskeletal: Musculoskeletal: Reports no additional musculoskeletal complaints [facility] Past Medical History Medical History Acid reflux ADHD Asthma Depression Dyslexia Type 2 diabetes mellitus Surgical History Surgical History Previous back surgery Family History Family History Grandparent Diabetes mellitus Family history of hypercholesterolemia Hypertension Social History Social History Smoking status: Never smoker Alcohol intake: never Substance use: never Substance use type: does not use Living arrangements: with family Occupation/Education: unemployed Gender identity (if verbalized by the patient): Female Sexual Orientation (if Verbalized by the Patient): Straight or Heterosexual Exam
== END 2022-09-26 18:10 | disposition home or self-care (01) ==
PROVIDERS: Emergency Provider Family Medicine; PCP Nurse Practitioner Family
DX: T78.40XA Allergy, unspecified, initial encounter (principal); E11.9 Type 2 diabetes mellitus without complications; F90.9 Attention-deficit hyperactivity disorder, unspecified type; J45.909 Unspecified asthma, uncomplicated; K21.9 Gastro-esophageal reflux disease without esophagitis; F32.A Depression, unspecified; Z79.84 Long term (current) use of oral hypoglycemic drugs; Z79.899 Other long term (current) drug therapy; Z79.51 Long term (current) use of inhaled steroids
CPT/HCPCS: 96372; 99284; J1200; J2930

== ENCOUNTER 2023-07-10 01:56 | Day surgery (SDC) | payer MEDICARE, OTHER, MEDICAID, SELFPAY ==
[2023-06-13 11:07] VITALS: BMI 29.7
--- NOTE | 2023-07-06 13:18 | SUR.PREOP ---
Patient called regarding upcoming procedure. Reviewed preop instructions, appointment times, and procedure prep.
[2023-07-10] VITALS (11 sets, daily range): BP systolic 91–119; BP diastolic 61–82; PULSE 72–93; RESP 16–23; TEMP 36.4; O2SAT 100
[2023-07-10 09:17] LABS: Glucose Point of Care 131 mg/dl (65-105)
[2023-07-10] MEDS: LACTATED RINGERS 1,000 ML 150 ML IV CONT (09:22)
--- NOTE | 2023-07-10 09:32 | WPDANESEPPF ---
Anes - Initial Pre Proc Eval Procedure: Operation Date: 07/10/23 10:30 Proposed Procedures p Esophagogastroduodenoscopy - Wilson Kelly MD Date/Time: 07/10/23 09:32 Surgeon: Wilson Kelly MD Pre Op Diagnosis: GERD,dysphagia,Epigastric pain,Eructation Patient Data Age: 23 Gender: F Height: 1.65 m Weight: 82.4 kg Last Vital Signs Temp 97.5 F L 07/10/23 09:20 Pulse 93 07/10/23 09:20 Resp 16 07/10/23 09:20 BP 111/72 07/10/23 09:20 Pulse Ox 100 07/10/23 09:20 O2 Del Method Room Air 07/10/23 09:20 Allergies Allergy/AdvReac Type Severity Reaction Status Date / Time mold Allergy Unknown Unknown Verified 07/10/23 09:17 ragweed pollen Allergy Unknown Unknown Verified 07/10/23 09:17 pepper (genus Capsicum) Allergy Rash Verified 07/10/23 09:17 clortermine AdvReac Mild Itching Verified 07/10/23 09:17 ibuprofen AdvReac Itching Verified 07/10/23 09:17 [From DayQuil Sinus Pressure/Pain] pseudoephedrine AdvReac Itching Verified 07/10/23 09:17 [From DayQuil Sinus Pressure/Pain] Home Medications Medication Instructions Recorded Confirmed Type docosahexaenoic acid 200 mg 200 mg PO DAILY 07/19/20 06/13/23 History capsule ( DHA) green tea leaf extract (Green Tea 1 cap PO DAILY 07/19/20 06/13/23 History capsule) liraglutide 0.6 mg/0.1 mL (18 mg/3 0.6 mg subcut DAILY 07/19/20 06/13/23 History mL) subcutaneous pen injector ([employer] 2-Librado) lorazepam 0.5 mg tablet 0.5 mg PO DAILY PRN Anxiety 07/19/20 06/13/23 History omeprazole 40 mg capsule,delayed 40 mg PO DAILY 07/19/20 06/13/23 History release blood sugar diagnostic (OneTouch 03/23/21 06/13/23 History Ultra Test strips) blood-glucose meter (OneTouch 03/23/21 06/13/23 History Ultra2 Meter) cetirizine 10 mg tablet 10 mg PO DAILY PRN allergies 03/23/21 06/13/23 History lancets 33 gauge (OneTouch Delica 03/23/21 06/13/23 History Plus Lancet) liraglutide 0.6 mg/0.1 mL (18 mg/3 1.8 mg subcut DAILY 03/23/21 07/10/23 History mL) subcutaneous pen injector (Victoza 2-Librado) pen needle, diabetic 31 gauge x 03/23/21 06/13/23 History 5/16 (BD Ultra-Fine Short Pen Needle) albuterol sulfate 90 mcg/actuation 2 puff inhalation QID PRN 06/28/22 06/13/23 Rx aerosol inhaler shortness of breath or wheezing #8.5 grams epinephrine 0.3 mg/0.3 mL 0.3 mg (0.3 mL) IM ONCE #2 ea 09/13/22 06/13/23 Rx injection syringe epinephrine 0.3 mg/0.3 mL 0.3 mg (0.3 mL) IM ONCE #2 ea 09/26/22 06/13/23 Rx injection, auto-injector (EpiPen 2-Librado) L norgest/E estradiol-E estrad 1 tablet PO DAILY #91 ea 01/09/23 06/13/23 Rx 0.15 mg-30 mcg (84)/10 mcg(7) tabs,3mos (Ashlyna) dapagliflozin propanediol 10 mg 10 mg PO DAILY 06/13/23 06/13/23 History tablet (Farxiga) ivabradine 5 mg tablet (Corlanor) 5 mg PO DAILY PRN Tachycardia 06/13/23 06/13/23 History lamotrigine 100 mg tablet 100 mg PO BID 06/13/23 06/13/23 History metformin 500 mg tablet 500 mg PO DAILY 06/13/23 06/13/23 History venlafaxine 75 mg capsule,extended 75 mg PO DAILY 06/13/23 06/13/23 History release 24 hr Laboratory Tests 07/10/23 09:14 POC Capillary Glucose 131 H mg/dl (65-105) Patient hx anesthesia problems: none Family hx anesthesia problems: none Results Review: All pre-operative results and documents have been reviewed as part of the pre-operative evaluation. [facility] Past Medical History Medical History (Updated 05/09/23 @ 08:55 by Oneyda Noyola, CARMEN) Acid reflux ADHD Asthma Belching Depression Diabetes mellitus type 2 in obese Dyslexia Dysphagia Epigastric pain Obesity Type 2 diabetes mellitus Surgical History Surgical History Previous back surgery Family History Family History Grandparent Diabetes mellitus Family history of hyper
--- NOTE | 2023-07-10 10:13 | PM.HPGS ---
History of Present Illness History of Present Illness Consent: Risks, benefits, and alternatives have been discussed and questions answered. Patient agrees to proceed with procedure. Chief complaint: GERD,dysphagia,Epigastric pain,Eructation Narrative: Violet Mack is a 23 year old female here for egd, history of epigastric pain using omeprazole, had egd about 5 years ago Review of Systems Constitutional: Constitutional: Denies headache(s) and Denies weakness Eyes: Eyes: Denies blurry vision ENT: Reports Normal hearing present, Denies headache(s) and Denies neck pain Cardiovascular: Cardiovascular: Denies chest pain and Denies dyspnea Respiratory: Respiratory: Denies dyspnea Gastrointestinal: Gastrointestinal: Reports no additional gastrointestinal complaints Genitourinary: Genitourinary: Denies dysuria Musculoskeletal: Musculoskeletal: Denies neck pain Integumentary/Breasts: Skin/Breast: Denies dry skin Neurologic: Reports Normal hearing present, Denies headache(s) and Denies weakness Psychiatric: Psychiatric: Denies anxiety Endocrine: Endocrine: Denies change in body appearance Hematologic/Lymphatic: Hematologic/Lymphatic: Denies easy bleeding Allergic/Immunologic: Allergic/Immunologic: Denies urticaria PMFSH Past Medical History Medical History (Updated 05/09/23 @ 08:55 by Oneyda Noyola, CARMEN) Acid reflux ADHD Asthma Belching Depression Diabetes mellitus type 2 in obese Dyslexia Dysphagia Epigastric pain Obesity Type 2 diabetes mellitus Surgical History Surgical History Previous back surgery Family History Family History Grandparent Diabetes mellitus Family history of hypercholesterolemia Hypertension Social History Social History Smoking status: Former smoker Tobacco type: cigarettes Alcohol intake: current Alcohol use details: rarely Substance use: current Substance use type: marijuana Last use: once a month Lack of Transportation: No Lack of Food: Never True Current Housing: I Have Housing Concerned About Future Housing: Decline to Answer Difficulty Paying Gas/Electric Bills: Decline to Answer Difficulty Paying for Meds: Decline to Answer Currently Unemployed: Decline to Answer Education: High School Diploma/GED Living arrangements: with family Occupation/Education: unemployed Gender identity (if verbalized by the patient): Female Sexual Orientation (if Verbalized by the Patient): Straight or Heterosexual Spiritual care concerns: No Meds Home Medications and Allergies Home Medications Medication Instructions Recorded Confirmed Type docosahexaenoic acid 200 mg 200 mg PO DAILY 07/19/20 06/13/23 History capsule ( DHA) green tea leaf extract (Green Tea 1 cap PO DAILY 07/19/20 06/13/23 History capsule) liraglutide 0.6 mg/0.1 mL (18 mg/3 0.6 mg subcut DAILY 07/19/20 06/13/23 History mL) subcutaneous pen injector (Nuday Gamestoza 2-Librado) lorazepam 0.5 mg tablet 0.5 mg PO DAILY PRN Anxiety 07/19/20 06/13/23 History omeprazole 40 mg capsule,delayed 40 mg PO DAILY 07/19/20 06/13/23 History release blood sugar diagnostic ([facility] 03/23/21 06/13/23 History Ultra Test strips) blood-glucose meter ([facility] 03/23/21 06/13/23 History Ultra2 Meter) cetirizine 10 mg tablet 10 mg PO DAILY PRN allergies 03/23/21 06/13/23 History lancets 33 gauge (OneTouch Delica 03/23/21 06/13/23 History Plus Lancet) liraglutide 0.6 mg/0.1 mL (18 mg/3 1.8 mg subcut DAILY 03/23/21 07/10/23 History mL) subcutaneous pen injector (Nuday Gamestoza 2-Librado) pen needle, diabetic 31 gauge x 03/23/21 06/13/23 History 5/16 (BD Ultra-Fine Short Pen Needle) albuterol sulfate 90 mcg/actuation 2 puff inhalation QID PRN 06/28/22 06/13/23 Rx aerosol inhaler sh
[2023-07-10] MEDS: BENZOCAINE (*SP) 60 ML SPRAY CAN (HURRICAINE) 1 SPRAY MUCOUS MEM (10:21)
[2023-07-10] MEDS: diphenhydrAMINE HCl INJ 50 MG/ML VIAL 12.5 MG IV PUSH (11:06)
--- NOTE | 2023-07-10 11:08 | SUR.PHASEII ---
Addendum entered by Kimberly Dennison RN 07/10/23 11:38: 1135 Pt states that throat feels a little swollen . Dr. Badillo notified and Decadron IV ordered and administered per anesthesiologist orders. Original Note: 1105 Pt states she feels like throat is burning . Redness of skin present on cheeks and side of neck. Dr. Badillo anesthesiologist notified and 12.5 mg benadryl aIV given as ordered.
--- NOTE | 2023-07-10 11:57 | SUR.PHASEII ---
Pt feeling better after Benadryl and Decadron. Skin redness resolved and states throat sore but does not feel swollen. Ok to discharge per Dr. Badillo(anesthesiologist).
== END 2023-07-10 12:06 | disposition home or self-care (01) ==
PROVIDERS: PCP Internal Medicine; Visit Provider Internal Medicine Gastroenterology
PROC: 0DJ08ZZ Inspection of Upper Intestinal Tract, Via Natural or Artificial Opening Endoscopic (ICD-10-PCS; CPT 43235; principal; 2023-07-10 10:30)
DX: K29.50 Unspecified chronic gastritis without bleeding (principal); K21.9 Gastro-esophageal reflux disease without esophagitis; K44.9 Diaphragmatic hernia without obstruction or gangrene; E11.9 Type 2 diabetes mellitus without complications; F32.A Depression, unspecified; J45.909 Unspecified asthma, uncomplicated; Z79.51 Long term (current) use of inhaled steroids; Z79.84 Long term (current) use of oral hypoglycemic drugs; Z79.85 Long-term (current) use of injectable non-insulin antidiabetic drugs; F12.90 Cannabis use, unspecified, uncomplicated; Z87.891 Personal history of nicotine dependence; E66.9 Obesity, unspecified; Z68.30 Body mass index [BMI] 30.0-30.9, adult
CPT/HCPCS: 43239; 82948; 88305; J1100; J1200; J2704; J7120

== ENCOUNTER 2023-09-02 21:47 | Emergency (ER) | payer MEDICARE, OTHER, SELFPAY ==
[2023-09-02] VITALS (14 sets, daily range): BP systolic 102–127; BP diastolic 60–91; PULSE 86–113; RESP 16–28; TEMP 36.2; O2SAT 98–100
--- NOTE | ~2023-09-02 | CT_ITS ---
CT of the Abdomen and Pelvis: Indication: Abdominal pain Technique: 2.5 mm axial scans were obtained through the abdomen and pelvis following intravenous adm inistration of 100 cc of Omnipaque 350. Dose reduction technique was used on this scan by utilizing a utomated exposure control and iterative reconstruction technique. The dose-length product (DLP) was 5 30.85 mGy-cm. Findings: Scans through the lung bases are unremarkable. The liver, spleen, pancreas, gallbladder, adrenals and kidneys are within normal limits. No evidence of aortic aneurysm. No lymphadenopathy. No bowel obstruction or bowel wall thickening. There is no evidence to suggest acute appendicitis. Images through the pelvis were performed. Urinary bladder unremarkable. No adnexal mass seen. No asci danay. Extensive spinal fixation hardware is present. Impression: No acute abnormalities seen. Reviewed, dictated and finalized at [facility]. Impression: No acute abnormalities seen.
--- NOTE | 2023-09-02 22:20 | ECG_ITS ---
Measurements Intervals [place] Rate: 99 P: 50 MO: 148 QRS: 39 QRSD: 88 T: 41 QT: 352 QTc: 454 Interpretive Statements SINUS RHYTHM NORMAL ECG COMPARED TO ECG 09/13/2022 20:14:43 SINUS RHYTHM NOW PRESENT Electronically Signed On 09-03-2023 6:30:11 CDT by Orville Valdez D.O.
--- NOTE | 2023-09-02 22:29 | ED.HA ---
HPI - Headache General Chief Complaint: Headache Stated Complaint: ULLOA Time Seen by Provider: 09/02/23 22:13 Source: patient Mode of arrival: ambulatory Limitations: no limitations History of Present Illness HPI Narrative: Patient is a 23 y/o female, with pmh of ADHD, depression, asthma, dyslexia, migraines, and type 2 diabetes, who presents to the ED with c/o multiple complaints. Patient reports she first developed a migraine headache earlier tonight around 7:00 p.m.. She does have hx of migraines. She took 2 Excedrin migraine at that time. She does report mild persistent headache currently. She then states her mother was cooking corned beef and cabbage and patient became nauseated by the smell. She attempted eating a separate dinner, but nausea continued. She began vomiting and reported several episodes of emesis over the last couple hours. She then prompted here. Patient does still feel nauseous currently. She complains of a burning discomfort in her abdomen, extending up into her chest and throat. She does have hx of GERD and is on omeprazole. Denies chest pain. Denies shortness of breath. Denies fevers, cough or cold symptoms. Denies sick contacts. Related Data Home Medications Medication Instructions Recorded Confirmed docosahexaenoic acid 200 mg 200 mg PO DAILY 07/19/20 06/13/23 capsule ( DHA) green tea leaf extract (Green Tea 1 cap PO DAILY 07/19/20 06/13/23 capsule) liraglutide 0.6 mg/0.1 mL (18 mg/3 0.6 mg subcut DAILY 07/19/20 06/13/23 mL) subcutaneous pen injector (12Bis 2-Librado) lorazepam 0.5 mg tablet 0.5 mg PO DAILY PRN Anxiety 07/19/20 06/13/23 omeprazole 40 mg capsule,delayed 40 mg PO DAILY 07/19/20 06/13/23 release blood sugar diagnostic ([facility] 03/23/21 06/13/23 Ultra Test strips) blood-glucose meter (OneTouch 03/23/21 06/13/23 Ultra2 Meter) cetirizine 10 mg tablet 10 mg PO DAILY PRN allergies 03/23/21 06/13/23 lancets 33 gauge (OneTouch Delica 03/23/21 06/13/23 Plus Lancet) liraglutide 0.6 mg/0.1 mL (18 mg/3 1.8 mg subcut DAILY 03/23/21 07/10/23 mL) subcutaneous pen injector (12Bis 2-Librado) pen needle, diabetic 31 gauge x 03/23/21 06/13/23 5/16 (BD Ultra-Fine Short Pen Needle) dapagliflozin propanediol 10 mg 10 mg PO DAILY 06/13/23 06/13/23 tablet (Farxiga) ivabradine 5 mg tablet (Corlanor) 5 mg PO DAILY PRN Tachycardia 06/13/23 06/13/23 lamotrigine 100 mg tablet 100 mg PO BID 06/13/23 06/13/23 metformin 500 mg tablet 500 mg PO DAILY 06/13/23 06/13/23 venlafaxine 75 mg capsule,extended 75 mg PO DAILY 06/13/23 06/13/23 release 24 hr Allergies Allergy/AdvReac Type Severity Reaction Status Date / Time mold Allergy Unknown Unknown Verified 07/10/23 09:17 ragweed pollen Allergy Unknown Unknown Verified 07/10/23 09:17 pepper (genus Capsicum) Allergy Rash Verified 07/10/23 09:17 clortermine AdvReac Mild Itching Verified 07/10/23 09:17 ibuprofen AdvReac Itching Verified 07/10/23 09:17 [From DayQuil Sinus Pressure/Pain] pseudoephedrine AdvReac Itching Verified 07/10/23 09:17 [From DayQuil Sinus Pressure/Pain] Review of Systems Review of Systems: CONSTITUTIONAL: Denies fever, chills, or sweats. CARDIOVASCULAR: See HPI. RESPIRATORY: Denies cough or dyspnea. GASTROINTESTINAL: See HPI. NEUROLOGIC: See HPI. All systems reviewed & are unremarkable except as noted in HPI and below PMFSH Past Medical History Medical History Acid reflux ADHD Asthma Belching Depression Diabetes mellitus type 2 in obese Dyslexia Dysphagia Epigastric pain Obesity Type 2 diabetes mellitus Surgical History Surgical History Previous back surgery Family History Family History Grandparent Diabetes mellitus Family history of hypercholesterolemia Hypertensio
[2023-09-02 22:43] LABS: Basophils Absolute Auto 0.1 K/mm3 (0.0-0.1); Basophils Percent Auto 0.4 % (0.2-1.2); Eosinophils Absolute Auto 0.1 K/mm3 (0-0.3); Eosinophils Percent Auto 0.4 % (0-4.4); Hematocrit 45.1 % (37.0-47.0); Hemoglobin 14.7 g/dL (12.0-15.0); Immature Granulocyte Absolute 0.16 K/mm3 (0.00-0.031); Immature Granulocyte Percent A 0.9 % (0-0.5); Lymphocytes Absolute Auto 3.44 K/mm3 (0.9-3.2); Lymphocytes Percent Auto 19.2 % (18.3-44.2); Mean Corpuscular HGB Conc 32.6 g/dl (32-36); Mean Corpuscular Hemoglobin 28.4 pg (26-34); Mean Corpuscular Volume 87.2 fl (80-100); Mean Platelet Volume 10.1 fl (7.4-10.4); Monocytes Absolute Auto 0.8 K/mm3 (0.1-0.6); Monocytes Percent Auto 4.6 % (2.6-8.5); Neutrophils Absolute Auto 13.3 K/mm3 (1.3-6.7); Neutrophils Percent Auto 74.5 % (45.5-73.1); Platelet Count Result 318 k/mm3 (150-375); Red Blood Count 5.17 M/mm3 (4.2-5.4); Red Cell Distribution Width 12.2 % (11.5-14.5); White Blood Count 17.9 K/mm3 (4.5-10.0)
[2023-09-02 22:55] LABS: Alanine Aminotransferase 16 U/L (6-35); Albumin Level 4.6 g/dL (3.5-5.1); Alkaline Phosphatase 101 U/L (38-126); Anion Gap 11 mmol/L (8-16); Aspartate Amino Transferase 21 U/L (14-36); Bilirubin,Total 0.3 mg/dL (0.2-1.3); Blood Urea Nitrogen 11 mg/dL (7-17); Calcium 10.2 mg/dL (8.4-10.2); Carbon Dioxide 23 mmol/L (22-30); Chloride 103 mmol/L (98-107); Estimated CRCL calculation 157 ml/min; Estimated Glomerular Filt Rate > 60; Glucose 139 mg/dL (65-110); Lipase 29 U/L (23-300); Potassium 3.8 mmol/L (3.4-5.0); Sodium 137 mmol/L (137-145)
[2023-09-02 23:19] LABS: Influenza A QL RT-PCR Negative (Negative); Influenza B QL RT-PCR Negative (Negative); RSV RNA, RT-PCR Negative (Negative); SARS-CoV-2 RNA PCR Negative (Negative)
[2023-09-02 23:31] LABS: Magnesium 2.3 mg/dL (1.6-2.3)
[2023-09-02] MEDS: SODIUM CHLORIDE 0.9% IV 1,000 ML 999 ML IV CONT (23:34)
[2023-09-02] MEDS: FAMOTIDINE 20 MG/2 ML VIAL IV PUSH (23:34)
[2023-09-02] MEDS: diphenhydrAMINE HCl INJ 50 MG/ML VIAL 25 MG IV PUSH (23:35)
[2023-09-02] MEDS: METOCLOPRAMIDE HCL INJ 10 MG/2 ML VIAL IV PUSH (23:36)
[2023-09-02 23:44] LABS: Troponin I < 0.012 ng/mL (0.000-0.034)
[2023-09-03] VITALS (12 sets, daily range): BP systolic 101–121; BP diastolic 66–77; PULSE 81–92; RESP 13–28; O2SAT 99–100
== END 2023-09-03 02:19 | disposition home or self-care (01) ==
PROVIDERS: Emergency Provider Physician Assistant; PCP Internal Medicine
DX: R11.2 Nausea with vomiting, unspecified (principal); G43.909 Migraine, unspecified, not intractable, without status migrainosus; K21.00 Gastro-esophageal reflux disease with esophagitis, without bleeding; Z20.822 Contact with and (suspected) exposure to COVID-19; J45.909 Unspecified asthma, uncomplicated; E11.9 Type 2 diabetes mellitus without complications; E66.9 Obesity, unspecified; Z68.30 Body mass index [BMI] 30.0-30.9, adult; F90.9 Attention-deficit hyperactivity disorder, unspecified type; F32.A Depression, unspecified; R48.0 Dyslexia and alexia; Z79.85 Long-term (current) use of injectable non-insulin antidiabetic drugs; Z79.84 Long term (current) use of oral hypoglycemic drugs; Z87.891 Personal history of nicotine dependence
CPT/HCPCS: 36415; 74177; 80053; 81025; 83690; 83735; 84484; 85025; 87637; 93005; 96361; 96374; 96375; 99284; J1200; J2765; J7030; Q9967

== ENCOUNTER 2023-12-07 01:13 | Emergency (ER) | payer MEDICARE, OTHER, SELFPAY ==
--- NOTE | ~2023-12-07 | XR_ITS ---
EXAMINATION: XR chest 2V DATE: 12/07/2023 03:40 INDICATION: Midsternal chest pain. TECHNIQUE: Frontal and lateral views of the chest were obtained. COMPARISON: Chest single view 06/28/2022 FINDINGS: There is no pneumonia, pleural effusion, or pneumothorax. The heart size is normal. There a re changes of posterior fusion procedure in thoracolumbar spine. IMPRESSION: 1. No acute cardiopulmonary disease. Reviewed, dictated and finalized at location A.
[2023-12-07 01:13] VITALS: BP 109/77; PULSE 95; RESP 18; TEMP 36.5; O2SAT 99
[2023-12-07 02:10] VITALS: BP 123/74; PULSE 81; RESP 16; O2SAT 99
[2023-12-07] MEDS: FAMOTIDINE 20 MG/2 ML VIAL IV PUSH (02:37)
[2023-12-07] MEDS: SODIUM CHLORIDE 0.9% IV 1,000 ML 999 ML IV CONT (02:37)
[2023-12-07] MEDS: BELLADONNA ALK/PHENOB ELIX 10 ML, MAG HYDROX/ALUMINUM HYD/SIMETH 30 ML, LIDOCAINE HCL 2... PO (02:37)
[2023-12-07 02:39] VITALS: BP 101/68; BP 104/76; BP 115/79; PULSE 88; PULSE 89
--- NOTE | 2023-12-07 03:10 | ED.CHESTPAIN ---
HPI - Chest Pain General Chief Complaint: Nausea/Vomiting/Diarrhea <Christina Puga PA-C - Last Filed: 12/07/23 03:16> History of Present Illness HPI narrative: 23-year-old female with history of insulin-dependent type 2 diabetes, asthma, ADHD, acid reflux, obesity presents to the emergency department for chest pain, palpitations, shortness of breath, nausea and diarrhea. Patient states yesterday she began having nausea and diarrhea and some epigastric abdominal discomfort with belching. States today she has had intermittent chest tightness and shortness of breath as well as palpitations. She is unable to identify any aggravating or alleviating factors. She denies fever, cough or congestion, lower extremity edema, history of DVT or PE, dysuria or hematuria, prior abdominal surgeries. She does states she feels somewhat dizzy and lightheaded when she is ambulatory. <Christina Puga PA-C - Last Filed: 12/07/23 03:16> Related Data Home Medications: Home Medications Medication Instructions Recorded Confirmed omeprazole 40 mg capsule,delayed 40 mg PO DAILY 07/19/20 12/05/23 release blood sugar diagnostic (OneTouch 03/23/21 12/05/23 Ultra Test strips) blood-glucose meter (OneTouch 03/23/21 12/05/23 Ultra2 Meter) cetirizine 10 mg tablet 10 mg PO DAILY PRN allergies 03/23/21 12/05/23 lancets 33 gauge (OneTouch Delica 03/23/21 12/05/23 Plus Lancet) pen needle, diabetic 31 gauge x 03/23/21 12/05/23 5/16 (BD Ultra-Fine Short Pen Needle) lamotrigine 100 mg tablet 100 mg PO BID 06/13/23 12/05/23 metformin 500 mg tablet 500 mg PO DAILY 06/13/23 12/05/23 venlafaxine 75 mg capsule,extended 75 mg PO DAILY 06/13/23 12/05/23 release 24 hr semaglutide 0.25 mg or 0.5 mg (2 0.25 mg subcut WEEKLY 12/05/23 12/05/23 mg/3 mL) subcutaneous pen injector ([employer]) <Christina Puga PA-C - Last Filed: 12/07/23 03:16> Allergies/Adverse Reactions: Allergies Allergy/AdvReac Type Severity Reaction Status Date / Time mold Allergy Unknown Unknown Verified 12/05/23 11:24 ragweed pollen Allergy Unknown Unknown Verified 12/05/23 11:24 pepper (genus Capsicum) Allergy Rash Verified 12/05/23 11:24 clortermine AdvReac Mild Itching Verified 12/05/23 11:24 ibuprofen AdvReac Itching Verified 12/05/23 11:24 [From DayQuil Sinus Pressure/Pain] pseudoephedrine AdvReac Itching Verified 12/05/23 11:24 [From DayQuil Sinus Pressure/Pain] chlortrimeton Allergy Unknown Rash Uncoded 12/05/23 11:24 <Christina Puga PA-C - Last Filed: 12/07/23 03:16> Review of Systems Review of Systems: CONSTITUTIONAL: Denies fever, chills, or sweats. EYES: Denies visual changes, redness, or discharge. ENT: Denies rhinorrhea, congestion, sore throat, or otalgia. CARDIOVASCULAR: see HPI RESPIRATORY: see HPI GASTROINTESTINAL: See HPI GENITOURINARY: Denies dysuria or hematuria. SKIN: Denies rash or itching. MUSCULOSKELETAL: Denies back pain, joint pain, or myalgia. NEUROLOGIC: Denies headache, numbness, or weakness. PSYCHIATRIC: Denies anxiety or depression. <Christina Puga PA-C - Last Filed: 12/07/23 03:16> [facility] Past Medical History Medical History: Medical History Acid reflux ADHD Asthma Belching Depression Diabetes mellitus type 2 in obese Dyslexia Dysphagia Epigastric pain Obesity Type 2 diabetes mellitus <Christina Puga PA-C - Last Filed: 12/07/23 03:16> Surgical History Surgical History: Surgical History Previous back surgery <Christina Puga PA-C - Last Filed: 12/07/23 03:16> Family History Family History: Family History Grandparent Diabetes mellitus Family history of hypercholesterolemia Hypertension <Christina Puga PA-C - Last Filed: 12/07/23 03:16> Sandhya
--- NOTE | 2023-12-07 03:12 | ECG_ITS ---
Test Date: 2023-12-07 01:24:46 Measurements Intervals [place] Rate: 88 P: 48 MA: 154 QRS: 5 QRSD: 88 T: 13 QT: 371 QTc: 450 Interpretive Statements SINUS RHYTHM LOW QRS VOLTAGE IN PRECORDIAL LEADS [QRS DEFLECTION < 1.0 mV IN CHEST LEADS] ABNORMAL ECG No previous ECG available for comparison Electronically Signed On 12-07-2023 10:56:00 CDT by Camron Casarez M.D.
[2023-12-07 03:31] LABS: Basophils Absolute Auto 0.1 K/mm3 (0.0-0.1); Basophils Percent Auto 0.4 % (0.2-1.2); Eosinophils Absolute Auto 0.2 K/mm3 (0-0.3); Eosinophils Percent Auto 1.2 % (0-4.4); Hematocrit 41.5 % (37.0-47.0); Hemoglobin 13.3 g/dL (12.0-15.0); Immature Granulocyte Absolute 0.14 K/mm3 (0.00-0.031); Immature Granulocyte Percent A 0.9 % (0-0.5); Lymphocytes Absolute Auto 3.93 K/mm3 (0.9-3.2); Lymphocytes Percent Auto 26.4 % (18.3-44.2); Mean Corpuscular Hemoglobin 28.8 pg (26-34); Mean Corpuscular Volume 89.8 fl (80-100); Mean Platelet Volume 10.6 fl (7.4-10.4); Monocytes Absolute Auto 1.4 K/mm3 (0.1-0.6); Monocytes Percent Auto 9.3 % (2.6-8.5); Neutrophils Absolute Auto 9.2 K/mm3 (1.3-6.7); Neutrophils Percent Auto 61.8 % (45.5-73.1); Platelet Count Result 288 k/mm3 (150-375); Red Blood Count 4.62 M/mm3 (4.2-5.4); Red Cell Distribution Width 13.1 % (11.5-14.5); White Blood Count 14.9 K/mm3 (4.5-10.0)
[2023-12-07 03:32] LABS: Appearance Urine Clear (Clear); Bilirubin Urine Negative (Negative); Blood Urine Negative (Negative); Color Urine Yellow (Yellow); Glucose Urine UA 3+ mg/dL (Negative); Ketones Urine Trace mg/dL (Negative); Leukocyte Esterase Ur Negative LEU/UL (Negative); Nitrate Urine Negative (Negative); Protein Urine Negative (Negative); Urobilinogen Urine 0.2 mg/dL (<2.0)
[2023-12-07 03:37] LABS: Add Urine Microscopic? NO; Alanine Aminotransferase 106 U/L (6-35); Alkaline Phosphatase 99 U/L (38-126); Anion Gap 10 mmol/L (4-12); Aspartate Amino Transferase 46 U/L (14-36); Bilirubin,Total 0.5 mg/dL (0.2-1.3); Blood Urea Nitrogen 17 mg/dL (7-17); Calcium 9.6 mg/dL (8.4-10.2); Carbon Dioxide 29 mmol/L (22-30); Chloride 100 mmol/L (98-107); Estimated CRCL calculation 130 ml/min; Estimated Glomerular Filt Rate > 60; Glucose 125 mg/dL (65-110); Lipase 34 U/L (23-300); Potassium 3.5 mmol/L (3.4-5.0); Sodium 139 mmol/L (137-145); Specific Grav Ur 1.052 (1.001-1.035); Troponin I < 0.012 ng/mL (0.000-0.034)
[2023-12-07 04:07] LABS: Influenza A QL RT-PCR Negative (Negative); Influenza B QL RT-PCR Negative (Negative); RSV RNA, RT-PCR Negative (Negative); SARS-CoV-2 RNA PCR Negative (Negative)
[2023-12-07 04:48] VITALS: PULSE 84; RESP 16; O2SAT 100
== END 2023-12-07 05:26 | disposition home or self-care (01) ==
PROVIDERS: Emergency Provider Physician Assistant; PCP Internal Medicine
DX: R07.89 Other chest pain (principal); Z20.822 Contact with and (suspected) exposure to COVID-19; E11.9 Type 2 diabetes mellitus without complications; E66.9 Obesity, unspecified; Z68.31 Body mass index [BMI] 31.0-31.9, adult; J45.909 Unspecified asthma, uncomplicated; K21.9 Gastro-esophageal reflux disease without esophagitis; F32.A Depression, unspecified; F90.9 Attention-deficit hyperactivity disorder, unspecified type; Z79.84 Long term (current) use of oral hypoglycemic drugs; Z79.899 Other long term (current) drug therapy; Z79.85 Long-term (current) use of injectable non-insulin antidiabetic drugs
CPT/HCPCS: 36415; 71046; 80053; 81003; 81025; 83690; 84484; 85025; 87637; 93005; 96361; 96374; 99284; J7030

== ENCOUNTER 2024-02-03 04:36 | Emergency (ER) | payer MEDICARE, OTHER, SELFPAY ==
[2024-02-03] VITALS (24 sets, daily range): BP systolic 92–119; BP diastolic 74–87; PULSE 83–103; RESP 15–28; TEMP 36.7–36.8; O2SAT 97–100
--- NOTE | ~2024-02-03 | XR_ITS ---
EXAMINATION: XR chest 1V portable DATE: 02/03/2024 05:13 INDICATION: Midline chest pain TECHNIQUE: frontal view of the chest was obtained. COMPARISON: Chest radiograph dated 12/07/2023 FINDINGS: The lungs remain clear with no focal airspace opacities, pulmonary edema, pleural effusion or pneumot horax. The cardiomediastinal silhouette is normal. Posterior spinal fusion with bilateral vertical ro d and pedicle screw fixation extending caudally from T4 through the visualized upper lumbar spine and beyond the inferior margin of the [id number]. IMPRESSION: 1. No acute cardiopulmonary disease. Reviewed, dictated and finalized at location A.
--- NOTE | 2024-02-03 04:44 | ECG_ITS ---
Test Date: 2024-02-03 04:45:29 Measurements Intervals [place] Rate: 101 P: 45 CT: 120 QRS: 18 QRSD: 86 T: 11 QT: 355 QTc: 461 Interpretive Statements SINUS TACHYCARDIA ABNORMAL RHYTHM ECG Compared to ECG 12/07/2023 01:24:46 Sinus rhythm no longer present Electronically Signed On 02-03-2024 08:47:22 CDT by Hitesh Pickering M.D.
[2024-02-03 05:02] LABS: Basophils Absolute Auto 0.1 K/mm3 (0.0-0.1); Basophils Percent Auto 0.3 % (0.2-1.2); Eosinophils Absolute Auto 0.1 K/mm3 (0-0.3); Eosinophils Percent Auto 0.9 % (0-4.4); Hematocrit 42.9 % (37.0-47.0); Hemoglobin 14.3 g/dL (12.0-15.0); Immature Granulocyte Absolute 0.14 K/mm3 (0.00-0.031); Immature Granulocyte Percent A 0.9 % (0-0.5); Lymphocytes Absolute Auto 4.19 K/mm3 (0.9-3.2); Lymphocytes Percent Auto 26.8 % (18.3-44.2); Mean Corpuscular HGB Conc 33.3 g/dl (32-36); Mean Corpuscular Hemoglobin 29.7 pg (26-34); Mean Corpuscular Volume 89.2 fl (80-100); Mean Platelet Volume 10.3 fl (7.4-10.4); Monocytes Absolute Auto 1.3 K/mm3 (0.1-0.6); Monocytes Percent Auto 8.3 % (2.6-8.5); Neutrophils Absolute Auto 9.8 K/mm3 (1.3-6.7); Neutrophils Percent Auto 62.8 % (45.5-73.1); Platelet Count Result 300 k/mm3 (150-375); Red Blood Count 4.81 M/mm3 (4.2-5.4); Red Cell Distribution Width 12.6 % (11.5-14.5); White Blood Count 15.7 K/mm3 (4.5-10.0)
[2024-02-03 05:14] LABS: INR 0.9; Prothrombin Time 12.6 Seconds (11.1-14.7)
[2024-02-03] MEDS: ONDANSETRON INJ 4 MG/2 ML VIAL IV PUSH (05:17)
--- NOTE | 2024-02-03 05:20 | ED.GENADULT ---
HPI - General Adult General Chief complaint: Chest Pain <Paresh Frias MD - Last Filed: 02/03/24 06:45> Stated complaint: chest pain <Paresh Frias MD - Last Filed: 02/03/24 06:45> Time Seen by Provider: 02/03/24 04:56 <Paresh Frias MD - Last Filed: 02/03/24 06:45> History of Present Illness HPI narrative: this is a 23-year-old female with history tachycardia and diabetes presenting for chest pain. Patient says the last 2 days she has been having episodes of tachycardia that are associated with diaphoresis, vomiting, dizziness, palpitations. It also results in a pressure in the center of her chest that is nonradiating 10 out 10 intensity and constant. She had 1 severe event yesterday and then another 1 this morning at 4:00 a.m.. The palpitations it resolved but she is still experiencing chest pain. There are no exacerbating or relieving leaving symptoms. No fevers or chills. No lower extremity edema or history of blood clots. <Paresh Frias MD - Last Filed: 02/03/24 06:45> Related Data Home medications: Home Medications Medication Instructions Recorded Confirmed omeprazole 40 mg capsule,delayed 40 mg PO DAILY 07/19/20 12/05/23 release blood sugar diagnostic ([facility] 03/23/21 12/05/23 Ultra Test strips) blood-glucose meter ([facility] 03/23/21 12/05/23 Ultra2 Meter) cetirizine 10 mg tablet 10 mg PO DAILY PRN allergies 03/23/21 12/05/23 lancets 33 gauge (OneTouch Delica 03/23/21 12/05/23 Plus Lancet) pen needle, diabetic 31 gauge x 03/23/21 12/05/23 5/16 (BD Ultra-Fine Short Pen Needle) lamotrigine 100 mg tablet 100 mg PO BID 06/13/23 12/05/23 metformin 500 mg tablet 500 mg PO DAILY 06/13/23 12/05/23 venlafaxine 75 mg capsule,extended 75 mg PO DAILY 06/13/23 12/05/23 release 24 hr ivabradine 5 mg tablet (Corlanor) 5 mg PO BID 01/02/24 <Paresh Frias MD - Last Filed: 02/03/24 06:45> Allergies/adverse reactions: Allergies Allergy/AdvReac Type Severity Reaction Status Date / Time mold Allergy Unknown Unknown Verified 02/03/24 04:51 ragweed pollen Allergy Unknown Unknown Verified 02/03/24 04:51 pepper (genus Capsicum) Allergy Rash Verified 02/03/24 04:51 semaglutide [From Ozempic] AdvReac Severe Nausea and Verified 02/03/24 04:51 Vomiting clortermine AdvReac Mild Itching Verified 02/03/24 04:51 ibuprofen AdvReac Itching Verified 02/03/24 04:51 [From DayQuil Sinus Pressure/Pain] pseudoephedrine AdvReac Itching Verified 02/03/24 04:51 [From DayQuil Sinus Pressure/Pain] chlortrimeton Allergy Unknown Rash Uncoded 01/02/24 08:37 <Paresh Frias MD - Last Filed: 02/03/24 06:45> [facility] Past Medical History Medical History: Medical History Acid reflux ADHD Asthma Belching Depression Diabetes mellitus type 2 in obese Dyslexia Dysphagia Epigastric pain Obesity Type 2 diabetes mellitus <Paresh Frias MD - Last Filed: 02/03/24 06:45> Surgical History Surgical History: Surgical History Previous back surgery <Paresh Frias MD - Last Filed: 02/03/24 06:45> Family History Family History: Family History Grandparent Diabetes mellitus Family history of hypercholesterolemia Hypertension Father Diabetes mellitus Mother Morbid obesity Asthma Sibling No problems noted. <Paresh Frias MD - Last Filed: 02/03/24 06:45> Social History Social History: Social History (Updated 01/02/24 @ 08:41 by CHARO Robledo) Smoking status: Never smoker Second hand tobacco smoke exposure: No Alcohol intake: current Alcohol use details: rarely Substance use: current Substance use type: marijuana Last use: once a month Do You Feel Safe in your Home?: Yes Lack of Transportation: No Lack of Food: Never
[2024-02-03 05:28] LABS: Alanine Aminotransferase 26 U/L (6-35); Albumin Level 4.7 g/dL (3.5-5.1); Alkaline Phosphatase 123 U/L (38-126); Anion Gap 13 mmol/L (4-12); Aspartate Amino Transferase 24 U/L (14-36); Bilirubin,Total 0.3 mg/dL (0.2-1.3); Blood Urea Nitrogen 14 mg/dL (7-17); Calcium 9.4 mg/dL (8.4-10.2); Carbon Dioxide 24 mmol/L (22-30); Chloride 100 mmol/L (98-107); Estimated CRCL calculation 143 ml/min; Estimated Glomerular Filt Rate > 60; Glucose 164 mg/dL (65-110); Lipase 99 U/L (23-300); Potassium 3.8 mmol/L (3.4-5.0); Sodium 137 mmol/L (137-145)
[2024-02-03 05:40] LABS: Troponin I 0.016 ng/mL (0.000-0.034)
--- NOTE | 2024-02-03 05:42 | PC.NURSE ---
Dr. Fried @ [facility]
[2024-02-03 06:53] LABS: NT Pro B Type Natriuretic Pept < 20 pg/mL (19.9-100)
[2024-02-03 07:13] LABS: Influenza A QL RT-PCR Negative (Negative); Influenza B QL RT-PCR Negative (Negative); RSV RNA, RT-PCR Negative (Negative); SARS-CoV-2 RNA PCR Negative (Negative)
--- NOTE | 2024-02-03 08:04 | ECG_ITS ---
Test Date: 2024-02-03 08:09:21 Measurements Intervals [place] Rate: 88 P: 18 ID: 154 QRS: 36 QRSD: 81 T: 44 QT: 370 QTc: 448 Interpretive Statements SINUS RHYTHM NORMAL ELECTROCARDIOGRAM Compared to ECG 02/03/2024 04:45:29 NO SIGNIFICANT CHANGE Electronically Signed On 02-03-2024 08:48:24 CDT by Hitesh Pickering M.D.
[2024-02-03 08:44] LABS: Troponin I < 0.012 ng/mL (0.000-0.034)
--- NOTE | 2024-02-03 08:46 | PC.NURSE ---
Pt ambulated to BR with steady gait. Denies any c/o at this time.
== END 2024-02-03 11:50 | disposition home or self-care (01) ==
PROVIDERS: Emergency Provider Emergency Medicine; PCP Internal Medicine
DX: R07.89 Other chest pain (principal); Z20.822 Contact with and (suspected) exposure to COVID-19; E11.9 Type 2 diabetes mellitus without complications; J45.909 Unspecified asthma, uncomplicated; E66.9 Obesity, unspecified; Z68.27 Body mass index [BMI] 27.0-27.9, adult; M41.9 Scoliosis, unspecified; K21.9 Gastro-esophageal reflux disease without esophagitis; F32.A Depression, unspecified; F90.9 Attention-deficit hyperactivity disorder, unspecified type; R00.0 Tachycardia, unspecified; Z79.84 Long term (current) use of oral hypoglycemic drugs; Z79.899 Other long term (current) drug therapy
CPT/HCPCS: 36415; 71045; 80053; 83690; 83880; 84484; 85025; 85380; 85610; 85730; 87637; 93005; 96374; 99284; J2405

== ENCOUNTER 2024-06-12 13:03 | Outpatient (CLI) | payer MEDICARE, OTHER, SELFPAY ==
[2024-06-12 13:17] LABS: Basophils Absolute Auto 0.1 K/mm3 (0.0-0.1); Basophils Percent Auto 0.8 % (0.2-1.2); Eosinophils Absolute Auto 0.2 K/mm3 (0-0.3); Eosinophils Percent Auto 1.4 % (0-4.4); Hematocrit 41.7 % (37.0-47.0); Hemoglobin 13.5 g/dL (12.0-15.0); Immature Granulocyte Absolute 0.08 K/mm3 (0.00-0.031); Immature Granulocyte Percent A 0.7 % (0-0.5); Lymphocytes Percent Auto 33.2 % (18.3-44.2); Mean Corpuscular HGB Conc 32.4 g/dl (32-36); Mean Corpuscular Volume 89.7 fl (80-100); Monocytes Absolute Auto 0.9 K/mm3 (0.1-0.6); Monocytes Percent Auto 7.8 % (2.6-8.5); Neutrophils Absolute Auto 6.6 K/mm3 (1.3-6.7); Neutrophils Percent Auto 56.1 % (45.5-73.1); Platelet Count Result 304 k/mm3 (150-375); Red Blood Count 4.65 M/mm3 (4.2-5.4); White Blood Count 11.7 K/mm3 (4.5-10.0)
[2024-06-12 14:33] LABS: Alanine Aminotransferase 23 U/L (6-35); Albumin Level 4.7 g/dL (3.5-5.1); Alkaline Phosphatase 96 U/L (38-126); Anion Gap 5 mmol/L (4-12); Aspartate Amino Transferase 23 U/L (14-36); Bilirubin,Total 0.5 mg/dL (0.2-1.3); Blood Urea Nitrogen 17 mg/dL (7-17); Calcium 9.4 mg/dL (8.4-10.2); Carbon Dioxide 25 mmol/L (22-30); Chloride 105 mmol/L (98-107); Estimated Glomerular Filt Rate > 60; Glucose 124 mg/dL (65-110); Potassium 4.1 mmol/L (3.4-5.0); Sodium 135 mmol/L (137-145)
== END 2024-06-12 13:04 | disposition home or self-care (01) ==
LOC: ANHLAB 13:04
PROVIDERS: PCP Internal Medicine; Visit Provider Internal Medicine Hematology & Oncology
DX: D72.829 Elevated white blood cell count, unspecified (principal)
CPT/HCPCS: 36415; 80053; 85025

== ENCOUNTER 2024-10-16 10:14 | Outpatient (CLI) | payer MEDICARE, OTHER, SELFPAY ==
[2024-10-16 10:28] LABS: Basophils Absolute Auto 0.1 K/mm3 (0.0-0.1); Basophils Percent Auto 0.4 % (0.2-1.2); Eosinophils Absolute Auto 0.2 K/mm3 (0-0.3); Eosinophils Percent Auto 1.6 % (0-4.4); Hematocrit 40.2 % (37.0-47.0); Hemoglobin 12.9 g/dL (12.0-15.0); Immature Granulocyte Absolute 0.09 K/mm3 (0.00-0.031); Immature Granulocyte Percent A 0.7 % (0-0.5); Lymphocytes Absolute Auto 3.45 K/mm3 (0.9-3.2); Lymphocytes Percent Auto 25.8 % (18.3-44.2); Mean Corpuscular HGB Conc 32.1 g/dl (32-36); Mean Corpuscular Hemoglobin 28.8 pg (26-34); Mean Corpuscular Volume 89.7 fl (80-100); Monocytes Percent Auto 7.7 % (2.6-8.5); Neutrophils Absolute Auto 8.5 K/mm3 (1.3-6.7); Neutrophils Percent Auto 63.8 % (45.5-73.1); Platelet Count Result 280 k/mm3 (150-375); Red Blood Count 4.48 M/mm3 (4.2-5.4); Red Cell Distribution Width 12.6 % (11.5-14.5); White Blood Count 13.4 K/mm3 (4.5-10.0)
--- OUTSIDE RECORDS SUMMARY | 2024-10-16 10:57 | XMS_ITS ---
Author Organization [facility] Address [address] [place] [address] Care Team Providers Care Dust Collector Name Role Phone Cici Fuller Primary Care Provider [phone] REASON FOR VISIT diabetes/ medicare & [employer] Encounters Encounter Location Date Provider Diagnosis [facility] - Cici Fuller [address] [place] [address] 10/29/2023 Cici Fuller Plan Of Treatment No Information Progress Notes * Kermit MACKOB:2000 (24 yo F)Acc No.[id number]:10/29/2023 Progress Notes Patient: Zhen HALLMAN Violet Provider: Zhen Fuller MD :2000 A ge:23 Y S ex:Female Date:10/29/2023 [facility] [id number] Subjective: * Chief Complaints: * 1 . diabetes/ medicare & [employer]. * Medical History: Objective: * Vitals: Assessment: Plan: * Treatment: * Billing Information: * Visit Code: * Procedure Codes: * Electronic signature of Bobby Fuller MD on 10/16/2024 at 10:56 AM CDT Sign off status: Pending * Provider: Zhen Fuller MD Date: 10/29/2023 Generated for Marti bermeo/Mao/eTransmitting on: 10/16/2024 10:56 AM CDT
--- OUTSIDE RECORDS SUMMARY | 2024-10-16 10:57 | XMS_ITS ---
Author Organization [facility] [place] ([address]) Address [address] [place] [address] Care Team Providers Care Deli Cook Name Role Phone Liliana Riley Primary Care Provider UnavailSharee Carlos Unavailable [phone] ZZ-Migration, Provider Unavailable Unavailab le Allergies Allergen (clinical drug ingredient) Drug/Non Drug Allergy documented on EMR Reaction Allergy Type Onset Date Status CHLOR-TRIMETON (uncoded) itching Allergy Active DAYQUIL COUGH (uncoded) hives Allergy Active Azithromycin itching Drug Allergy Acti ve ibuprofen Ibuprofen increase in headaches Drug Allergy Active REASON FOR VISIT [facility] To [facility] Conversion Encounter Medications Medication SIG (Take, Route, Frequency, Duration) Notes Start Date End Date Status metFORMIN HCl 500 MG 1 tab(s) orally 2 times a day for 30 day(s) Not-Taking Victoza 18 MG/3ML as directed subcutaneously once a day for 30 day(s) Active Benadryl Allergy 25 MG 1 by mouth once day for 30 days Active ALBUTEROL (EQV-PROAIR HFA) 90 MCG/INH 2 PUFF(S) INHALED EVERY 6 HOURS *Please review for potential replacement for e-prescription and drug interaction check* Active Venlafaxine HCl 75 MG 1 tab(s) orally 2 times a day for 30 day(s) Active Ondansetron HCl 4 MG 1 tab(s) orally every 8 hours Active Cetirizine HCl 10 MG 1 tab(s) orally once a day Active predniSONE 20 MG 1 tab(s) orally once a day for 7 day(s) Active Omeprazole 20 MG 1 cap(s) orally once a day for 30 day(s) Active 1 *Please review for potential replacement for e-prescription and drug interaction check* Active Famotidine 20 MG 1 tab(s) orally 2 times a day Active Arnuity Ellipta 200 MCG/ACT as directed inhaled Q4-6 hours, PRN and per the asthma action plan for 30 day(s) 12/05/2022 Active ALBUTEROL (EQV-PROVENTIL HFA) 90 MCG/INH 2 PUFF(S) INHALED Q4-6 HOURS, PRN AND PER THE ASTHMA ACTION PLAN for 30 DAY(S) *Please review for potential replacement for e-prescription and drug interaction check* 12/05/2022 Active EpiPen 2-Librado 0.3 MG/0.3ML as directed intramuscularly once for 1 dose(s) Active Albuterol Sulfate (2.5 MG/3ML) 0.083% 3 ml by nebulizer Q4-6 hours, PRN and per the asthma action plan for 30 day(s) 12/05/2022 Active Ashlyna BIPHASIC EXTENDED CYCLE 1 TAB(S) ORALLY ONCE A DAY for 91 DAY(S) *Please review and pick correct strength-formulat ion from Codealike options. If intended option is not shown, discontinue and re-order from Quick Search* Active lamoTRIgine 100 MG 1 tab(s) orally 2 times a day Active Corlanor 5 MG 1 tab(s) orally 2 times a day (with meals) Active Encounters Encounter Location Date Provider Diagnosis [address] [address] 12/01/2023 Provider ADAMA-Phyllis Mild intermittent asthma, uncomplicated J45.20 Assessments Encounter Date Diagnosis (ICD Code) Assessment Notes Treatment Notes Treatment Clinical Notes Section Notes 12/01/2023 Mild intermittent asthma, uncomplicated (ICD-10 - J45.20) Plan Of Treatment Medication Medication Name Sig Start Date Stop Date Notes Arnuity Ellipta 200 MCG/ACT as directed inhaled Q4-6 hours, PRN and per the asthma action plan for 30 day(s) 12/05/2022 ALBUTEROL (EQV-PROVENTIL HFA) 90 MCG/INH 2 PUFF(S) INHALED Q4-6 HOURS, PRN AND PER THE ASTHMA ACTION PLAN for 30 DAY(S) 12/05/2022 *Please review for potential replacement for e-prescription and drug interaction check* EpiPen 2-Librado 0.3 MG/0.3ML as directed intramuscularly once for 1 dose(s) Albuterol Sulfate (2.5 MG/3ML) 0.083% 3 ml by nebulizer Q4-6 hours, PRN and per the asthma action plan for 30 day(s) 12/05/2022 Progress Notes * Holden MACKJarvisOB:2000 (24 yo F)Acc No.[id number]:12/01/2023 Patient: Violet KELLY Provider: Karma Ferguson :2000 A ge:23 Y S ex:Female Date:12/01/2023 Address:[address] [place] [address] Pcp:Liliana Riley Subjective: * Chief Complaints: * 1 . [facility] Conversion Encounter. * Medical History: * Medications: T aking Famotidine 20 MG Tablet 1 tab(s) orally 2 times a day , Taking predniSONE 20 MG Tablet 1 tab(s) orally once a day , Taking Cetirizine HCl 10 MG Tablet 1 tab(s) orally once a day , Taking Ondansetron HCl 4 MG Tablet 1 tab(s) orally every 8 hours , Taking 1 , Notes to Pharmacist: *Please review for potential replacement for e-prescription and drug interaction check*, Taking Omeprazole 20 MG Capsule Delayed Release 1 cap(s) orally once a day , Taking Venlafaxine HCl 75 MG Tablet 1 tab(s) orally 2 times a day , Taking ALBUTEROL (EQV-PROAIR HFA) 90 MCG/INH AEROSOL 2 PUFF(S) INHALED EVERY 6 HOURS , Notes to Pharmacist: *Please review for potential replacement for e-prescription and drug interaction check*, Taking Benadryl Allergy 25 MG Tablet 1 by mouth once day , Taking Victoza 18 MG/3ML Solution Pen- injector as directed subcutaneously once a day , Taking Corlanor 5 MG Tablet 1 tab(s) orally 2 times a day (with meals) , Taking lamoTRIgine 100 MG Tablet 1 tab(s) orally 2 times a day , Taking Ashlyna BIPHASIC EXTENDED CYCLE TABLET 1 TAB(S) ORALLY ONCE A DAY , Notes to Pharmacist: *Please review and pick correct strength-formulation from Medispan options. If intended option is not shown, discontinue and re-order from Quick Search*, Not-Taking/PRN metFORMIN HCl 500 MG Tablet 1 tab(s) orally 2 times a day * Allergies: C HLOR-TRIMETON: itching, Azithromycin: itching, Ibuprofen: increase in headaches, DAYQUIL COUGH: hives. Objective: * Vitals: Assessment: * Assessment: 1. M ild intermittent asthma, uncomplicated - J45.20 Plan: * Treatment: 2. O thers Continue EpiPen 2-Librado Solution Auto-injector, 0.3 MG/0.3ML, as directed, intramuscularly, once, 1 dose(s). * Billing Information: * Visit Code: * Procedure Codes: * Electronic signature of Anh GALAN-Migration on 10/16/2024 at 10:30 AM CDT Sign off status: Pending * Provider: Karma torres Migration Date: 0 12/01/2023 Generated for Marti bermeo/Mao/Nahid on: 0 10/16/2024 10:30 AM CDT
--- OUTSIDE RECORDS SUMMARY | 2024-10-16 10:57 | XMS_ITS | Patient Health Record ---
Author Organization [facility] [place] ([address]) Address [address] [place] [address] Care Team Providers Care Timber Hewer Name Role Phone Osvaldo Liliana Primary Care Provider UnavailSharee Carlos Unavailable [phone] ZZ-Migration, Provider Unavailable Unavailab le Allergies Allergen (clinical drug ingredient) Drug/Non Drug Allergy documented on EMR Reaction Allergy Type Onset Date Status CHLOR-TRIMETON (uncoded) itching Allergy Active DAYQUIL COUGH (uncoded) hives Allergy Active Azithromycin itching Drug Allergy Acti ve ibuprofen Ibuprofen increase in headaches Drug Allergy Active Reason For Referral No Information Medications Medication SIG (Take, Route, Frequency, Duration) Notes Start Date End Date Status FAMOTIDINE 20 mg 1 tab(s) orally 2 times a day Active ALBUTEROL SULFATE 2.5 mg/3 mL (0.083%) 3 ml by nebulizer Q4-6 hours, PRN and per the asthma action plan for 30 day(s) 12/05/2022 Active BENADRYL 25mg 1 by mouth once day for 30 days Active VENLAFAXINE 75 mg 1 tab(s) orally 2 times a day for 30 day(s) Active OMEPRAZOLE 20 mg 1 cap(s) orally once a day for 30 day(s) Active ONDANSETRON 4 mg 1 tab(s) orally ever y 8 hours Active CETIRIZINE 10 mg 1 tab(s) orally once a day Active EPIPEN 2-LIBRADO 0.3 mg as directed intramuscularly once for 1 dose(s) Active PREDNISONE 20 mg 1 tab(s) orally once a day for 7 day(s) Active Famotidine 20 MG 1 tab(s) orally 2 times a day Active ARNUITY ELLIPTA furoate 200 mcg as directed inhaled Q4-6 hours, PRN and per the asthma action plan for 30 day(s) 12/05/2022 Active VICTOZA 18 mg/3 mL as directed subcutaneously once a day for 30 day(s) Active ALBUTEROL (EQV-PROVENTIL HFA) 90 MCG/INH 2 PUFF(S) INHALED Q4-6 HOURS, PRN AND PER THE ASTHMA ACTION PLAN for 30 DAY(S) *Please review for potential replacement for e-prescription and drug interaction check* 12/05/2022 Active Ashlyna BIPHASIC EXTENDED CYCLE 1 TAB(S) ORALLY ONCE A DAY for 91 DAY(S) *Please review and pick correct strength-formulat ion from Docstoc options. If intended option is not shown, discontinue and re-order from Quick Search* Active lamoTRIgine 100 MG 1 tab(s) orally 2 times a day Active Corlanor 5 MG 1 tab(s) orally 2 times a day (with meals) Active EpiPen 2-Librado 0.3 MG/0.3ML as directed intramuscularly once for 1 dose(s) Active Albuterol Sulfate (2.5 MG/3ML) 0.083% 3 ml by nebulizer Q4-6 hours, PRN and per the asthma action plan for 30 day(s) 12/05/2022 Active Arnuity Ellipta 200 MCG/ACT as directed inhaled Q4-6 hours, PRN and per the asthma action plan for 30 day(s) 12/05/2022 Active metFORMIN HCl 500 MG 1 tab(s) orally 2 times a day for 30 day(s) Not-Taking Victoza 18 MG/3ML as directed subcutaneously once a day for 30 day(s) Active ASHLYNA biphasic extended cycle 1 tab(s) orally once a day for 91 day(s) Active Benadryl Allergy 25 MG 1 by mouth once day for 30 days Active LAMOTRIGINE 100 mg 1 tab(s) orally 2 times a day Active CORLANOR 5 mg 1 tab(s) orally 2 times a day (with meals) Active METFORMIN 500 mg 1 tab(s) orally 2 times a day for 30 day(s) Not-Taking Ondansetron HCl 4 MG 1 tab(s) orally every 8 hours Active Cetirizine HCl 10 MG 1 tab(s) orally once a day Active predniSONE 20 MG 1 tab(s) orally once a day for 7 day(s) Active ALBUTEROL (EQV-PROAIR HFA) 90 MCG/INH 2 PUFF(S) INHALED EVERY 6 HOURS *Please review for potential replacement for e-prescription and drug interaction check* Active Venlafaxine HCl 75 MG 1 tab(s) orally 2 times a day for 30 day(s) Active Omeprazole 20 MG 1 cap(s) orally once a day for 30 day(s) Active 1 *Please review for potential replacement for e-prescription and drug interaction check* Active Social History Tobacco Use: Social History Observation Description Date Details (start date - stop date) Never Smoker NA - NA Smoking Smart Form: Question Answer Notes Are you a: never smoker Problems Problem Type SNOMED Code ICD Code Onset Dates Problem Status W/U Status Risk Notes Problem Anxiety disorder (342932533) Anxiety disorder, unspecified (F41.9) Active confirmed Problem Allergic rhinitis (10542752) Other allergic rhinitis (J30.89) Active confirmed Problem Chronic rhinitis (09564065) Chronic rhinitis (J31.0) Active confirmed Problem Mild intermittent asthma (441167747) Mild intermittent asthma, uncomplicated (J45.20) Active confirmed Problem Food anaphylaxis (73620706) Anaphylactic reaction due to other food products, initial encounter (T78.09XA) Active confirmed Problem Food anaphylaxis (39507175) Anaphylactic reaction due to other food products, subsequent encounter (T78.09XD) Active confirmed Problem Allergy status t o other drugs, medicaments and biological substances (Z88.8) Active confirmed Encounters Encounter Location Date Provider Diagnosis [facility] [address] [place] [id number] 12/01/2023 Provider Vignesh Mild intermittent asthma, uncomplicated J45.20 Assessments Encounter Date Diagnosis (ICD Code) Assessment Notes Treatment Notes Treatment Clinical Notes Section Notes 12/01/2023 Mild intermittent asthma, uncomplicated (ICD-10 - J45.20) Plan Of Treatment No Information Insurance Providers Payer Name Payer Address Payer Phone Subscriber Number Group Number Insured Name Patient Relationship to Insured Coverage Start Date Coverage End Date [employer] (Medicare) Attention Claims [address] [place] [address] [id number] Violet Lomeli Self - [place] [address] [id number] Violet Lomeli Self - patient is the insured Medical (General) History Medical History History ICD Code Tachycardia Diabetes Asthma Depression, unspecified F32.A Anxiety disorder, unspecified F41.9 Allergic rhinitis due to pollen J30.1 Surgical History Surgery Date(Month/Year) neck to back surgery/ had scoliosis 2014 Extensive oral surgery 2019 Hospitalization History Reason Date(Month/Year) Neck/Back surgery 2014
--- OUTSIDE RECORDS SUMMARY | 2024-10-16 10:57 | XMS_ITS | CONTINUITY OF CARE DOCUMENT ---
Author Name meg, meg Address Unknown Organization [facility] Address [address] [place] [address] Phone [phone] Care Team Providers Care Recruiting Internship Name Role Phone Ward Fried MD Unavailable ERICA JUARES MD Unavailable [phone] ALENA JOHNSON MD Unavailable PROBLEMS Condition Status Date Provider Notes Palpitations active Ward Fried MD Chest pain-type to be determined active Henrietta Fried MD Postural orthostatic tachycardia syndrome active 05/01 Ward Fried MD Cardiology examination active Ward Fried MD Vaccination - COVID-19 active Ward Fried MD Sinus tachycardia active Ward Fried MD Gastric ulcer; h/o active Ward Fried MD Scoliosis; has had 3x back surgery active Maggie Fried MD ADHD active Ward Fried MD Dizziness active Ward Fried MD GERD active Ward Fried MD Diabetes mellitus, Type II active Ward escobedo MD ENCOUNTERS Date Type Provider Location Encounter Diag nosis - In-person encounter Office Visit Ward Fried MD [facility] Cardiology examination - In-person encounter Office Visit Ward Fried MD [facility] Postural orthostatic tachycardia syndrome - In-person encounter Office Visit Ward Fried MD [facility] - In-person encounter Office Visit Ward Fried MD [facility] - In-person encounter Office Visit Ward Fried MD [facility] - In-person encounter Office Visit Ward Fried MD [facility] Vaccination - COVID-19 - In-person encounter Office Visit Ward Fried MD [facility] - In-person encounter Office Visit Ward Fried MD [facility] Sinus tachycardia - In-person encounter Office Visit Ward Fried MD [facility] PalpitationsDiabetes mellitus, Type IIGERDDizzinessADHDScoliosi s; has had 3x back surgeryGastric ulcer; h/oChest pain-type to be determined VITAL SIGNS Date Observation Value Provider Body Mass Index (Ratio) 27.76 kg/m2 Jer Fried MD blood pressure, diastolic 76 mm[Hg] Ronna Steel blood pressure, systolic 111 mm[Hg] Abigail Steel oxygen saturation, oximetry 97 % Carol Steel pulse rate 93 /min Carol Steel respiratory rate E&M 12 /min Carol Steel weight E&M 172 [lb_av] Carol Steel height E&M 66 [in_i] Carol Steel blood pressure, cuff size regular Ronna Steel Body Mass Index (Ratio) 28.73 kg/m2 Jer Fried MD oxygen saturation, oximetry 98 % Carol Steel pulse rate 90 /min aCrol Steel blood pressure, diastolic 74 mm[Hg] Ronna melendez Steel blood pressure, systolic 114 mm[Hg] Abigail smith Steel respiratory rate E&M 12 /min Carol Steel weight E&M 178 [lb_av] Carol Steel height E&M 66 [in_i] Carol Steel blood pressure, cuff size regular Ronna Steel weight E&M 180 [lb_av] Dorinda allan height E&M 66 [in_i] Dorinda allan Body Mass Index (Ratio) 30.82 kg/m2 Cheyenne Rao blood pressure, diastolic 75 mm[Hg] Reji tran Morris blood pressure, systolic 115 mm[Hg] Lisa mcgregor Morris oxygen saturation, oximetry 100 % [facility] Morris pulse rate 95 /min [facility] Morris blood pressure, cuff size regular Reji chelsea Morris weight E&M 179.6 [lb_av] [facility] height E&M 64 [in_i] [facility] Morris Body Mass Index (Ratio) 30.38 kg/m2 Jer Fried MD blood pressure, diastolic 74 mm[Hg] Nani nkLogic blood pressure, systolic 100 mm[Hg] Renetta kLogic blood pressure, cuff size regular Ricardo rret blood pressure, diastolic 74 mm[Hg] Ja rret blood pressure, systolic 100 mm[Hg] Jar ret pulse rate 97 /min Phil y oxygen saturation, oximetry 96 % Phil respiratory rate E&M 16 /min Phil weight E&M 177 [lb_av] Phil y height E&M 64 [in_i] Phil Vernon y Body Mass Index (Ratio) 30.21 kg/m2 Jer Fried MD blood pressure, cuff size large St rainey Quinn blood pressure, diastolic 78 mm[Hg] St rainey Quinn blood pressure, systolic 120 mm[Hg] Ben kunz Quinn oxygen saturation, oximetry 99 % Brook Quinn respiratory rate E&M 18 /min Brook serrano weight E&M 176 [lb_av] Brookze Ball height E&M 64 [in_i] Brookze Ball Body Mass Index (Ratio) 28.32 kg/m2 Jer Fried MD blood pressure, cuff size regular Ke rri Zachariah blood pressure, diastolic 62 mm[Hg] Ke rri Zachariah blood pressure, systolic 106 mm[Hg] Masha Soni oxygen saturation, oximetry 98 % Grisel Soni respiratory rate E&M 16 /min Grisel madison pulse rate 89 /min Grisel blair weight E&M 165 [lb_av] Grisel Channing blair height E&M 64 [in_i] Grisel blair Body Mass Index (Ratio) 26.95 kg/m2 Jer Fried MD blood pressure, cuff size regular Ke rri Raineruenenfjeison blood pressure, diastolic 60 mm[Hg] Ke rri Raineruenecelestino blood pressure, systolic 102 mm[Hg] Masha Soni oxygen saturation, oximetry 98 % Grisel Gruenenfelder respiratory rate E&M 16 /min Grisel G ruenenfelder pulse rate 82 /min Grisel Gruenenfe lder weight E&M 157 [lb_av] Grisel Gruenenfe lder height E&M 64 [in_i] Grisel Gruenenfe lder Body Mass Index (Ratio) 27.29 kg/m2 Jer Fried MD blood pressure, cuff size regular Ke rri Gruenenfelder blood pressure, diastolic 72 mm[Hg] Ke rri Gruenenfelder blood pressure, systolic 110 mm[Hg] Ker ri Gruenenfelder oxygen saturation, oximetry 98 % Grisel Neetuelder respiratory rate E&M 16 /min Grisel G azulenenfelder pulse rate 88 /min Grisel Gruenenfe er weight E&M 159 [lb_av] Grisel Grmarimarnenfe lder height E&M 64 [in_i] Grisel Gruenenfe er weight E&M 162 [lb_av] Corry Ravenwood Body Mass Index (Ratio) 27.80 kg/m2 Jer Fried MD blood pressure, cuff size large Ke rri Gruenenfelder blood pressure, diastolic 70 mm[Hg] Ke rri Gruenenfelder blood pressure, systolic 130 mm[Hg] Ker ri Gruenenfelder oxygen saturation, oximetry 91 % Grisel Gruenenfelder respiratory rate E&M 16 /min Grisel G ruenenfelder pulse rate 98 /min Grisel Gruenenfe lder weight E&M 162 [lb_av] Grisel fregosoer height E&M 64 [in_i] Grisel blair ALLERGIES Allergy Name Onset Date Reaction Criticality Status NYQUIL Low Criticality active DAYQUIL Low Criticality active HISTAMINE Low Criticality active HISTORY OF MEDICATION USE Medication Status Instructions Dates Provider Indications [facility] ments Victoza 2-Librado 0.6 mg/0.1 mL (18 mg/3 mL) pen injector active Inject 0.6 mg subcutaneously once a day Grisel Soni Exit41com G6 Sensor device active Apply 1 device to skin as directed - Ward Fried MD Victoza 2-Librado 0.6 mg/0.1 mL (18 mg/3 mL) pen injector completed 0.6 mg subcutaneously once a day - Grisel Soni rosuvastatin 20 mg tablet active Ward Fried MD albuterol sulfate 90 mcg/actuation HFA aerosol inhaler active Ward Fried MD Corlanor 5 mg tablet active TAKE 1 TABLET BY MOUTH TWICE A DAY [facility] lansoprazole 15 mg capsule,delayed release(DR/EC) completed once a day - Chrissy PIRESP Ashlyna 0.15 mg-30 mcg (84)/10 mcg (7) tablets,dose pack,3 month completed once a day - Ward Fried MD lorazepam 0.5 mg tablet active three times a day as needed Grisel Soni metformin 500 mg tablet active 1 tablet by mouth twice a day Grisel Soni Diurex 162.5-50 mg tablet completed once a day - Chrissy Matthewmiswapna PIRESP omeprazole 40 mg capsule,delayed release(DR/EC) active 1 capsule once a day Grisel Soni Victoza 2-Librado 0.6 mg/0.1 mL (18 mg/3 mL) pen injector completed once a day - Ward Fried MD Multi-DHA (algal oil) 27mg iron- 800 mcg-250 mg capsule active once a day Grisel Soni Simpesse 0.15 mg-30 mcg (84)/10 mcg (7) tablets,dose pack,3 month completed once a day - Chrissy Matthewmiglia [facility] SOCIAL HISTORY Date Observation Value Provider personal history of marijuana use no Ward Fried MD drug use no Ward Fried MD alcohol use no Ward Fried MD smoking status Never smoker Ward Fried MD personal history of marijuana use no Ward Fried MD drug use no Ward Fried MD alcohol use no Ward Fried MD smoking status Never smoker Ward Fried MD personal history of marijuana use no Chrissy Ventimiglia [facility] drug use no Chrissy Ventimig mayra [facility] alcohol use no Chrissy Ventimig mayra [facility] smoking status Never smoker Chrissy Ventim iglia [facility] drug use no Ward Fried MD alcohol use no Ward Fried MD smoking status Never smoker Ward Fried MD drug use no Ward Fried MD alcohol use no Ward Fried MD social history E&M S moking History: Karma shikha has never smoked. Ward Fried MD social history reviewed E&M revi ewed - no changes required Ward Fried MD smoking status Never smoker Brook Quinn smoking status Never smoker Grisel Karson ashby social history E&M S moking History: Karma trivedi has never smoked. Ward Fried MD social history reviewed E&M revi ewed - no changes required Ward Fried MD smoking status Never smoker Grisel Karson ashby smoking status Never smoker Grisel Karson ashby number of grandchildren Ward Fried MD social history E&M S moking History: Karma trivedi has never smoked. Ward Fired MD social history reviewed E&M revi ewed - no changes required Ward Fried MD smoking status Never smoker Grisel Karson ashby FAMILY HISTORY Family Member Condition First Degree Blood Relative No Known Fam nohemi History INSURANCE PROVIDERS Payer name Policy type / Coverage type Trout red green party ID [employer] [id number] [place] MEDICARE Medicare [id number] ADVANCE DIRECTIVES Name Date DISCUSSED - NO DECISION MADE TREATMENT PLAN Date Name Performer [id number], Ward Fried MD [id number],Per Dr Jonny Fried MD [id number], Ward Fried MD [id number], Ward Fried MD [id number],C, P shikha feels much better on Corlanor. doesn't get as dizzy and has better exercise tolerance when taking this medication. There is no other medication that would slow her HR without lowering her BP and she is symptomatically improved. We will try to get the medicine approved by her insurance. Ward Fried MD Cardiology: jenni onitnue corlanor T his visit has been a part of the consistent, comprehensive, and ongoing management of the chronic medical condition(s) listed above for the patient. Ward Fried MD Cardiology Ward Fried MD Cardiology: a typical routine stress test showed no evidence of ischemia, but is limited due to dizziness and she was forced to stop. S till having intense sharp pains but no abnormalities on EKG. will advise to take corlanor which helps somewhat T his visit has been a part of the consistent, comprehensive, and ongoing management of the chronic medical condition(s) listed above for the patient. Ward Fried MD Cardiology:angi ivyor T his visit has been a part of the consistent, comprehensive, and ongoing management of the chronic medical condition(s) listed above for the patient. Ward Fried MD Cardiology: C ontinues to have episodes of palpitations better with corlanor T his visit has been a part of the consistent, comprehensive, and ongoing management of the chronic medical condition(s) listed above for the patient. Ward Fried MD Cardiology: C ontinues to have episodes of palpitations better with corlanor Ward Fried MD Cardiology: c ontinue corlanor Ward Fried MD Cardiology:Dexcom gi micha Ward Fried MD Cardiology:atypical routine stress test showed no evidence of ischemia, but is limited due to dizziness and she was forced to stop Ward Fried MD Cardiology: T he following medications were removed from the medication list: Lansoprazole 15 Mg Capsule,delayed Release(dr/ec) (Lansoprazole) ..... Once a day Her updated medication list for this problem includes: Omeprazole 40 Mg Capsule,delayed Release(dr/ec) (Omeprazole) ..... 1 capsule once a day Chrissy Emery [facility] Cardiology:poorly co ntrolled referred back to endocrine l pamellaestdeisy modification encouraged W ill resume Victoza as tolerated well in past and needs control of glucose to reduce cardiac risk factors and glycemic control. s he reports blood glucose as high as 558. Chrissy Ventimiglia [facility] Cardiology:continue corlanor Whitley jonas Ventimiglia [facility] Cardiology:Has repor ts of chest pain, SOB and palpitations. Also, associated with diaphoresis. S he has very uncontrolled blood glucose W ill plan routine stress test. Chrissy Ventimiglia [facility] Cardiology:Continues to have episodes of palpitations better with corlanor Chrissy Ventimiglia [facility] Cardiology:on Mounjaro Ward escobedo MD Cardiology:Needs 48hr holter Henrietta Fried MD Cardiology:Restart c orlanor, patient is not good candidate for BB given she has borderline hypotension r epeat echocardiagram. Ward Fried MD Cardiology Ward Fried MD Cardiology:Per Dr Jonny escobedo MD Cardiology Ward Fried MD Cardiology Ward Fried MD Cardiology: P atient feels much better on Corlanor. doesn't get as dizzy and has better exercise tolerance when taking this medication. There is no other medication that would slow her HR without lowering her BP and she is symptomatically improved. We will try to get the medicine approved by her insurance. Ward Fried MD Cardiology Follow up Ward kinsey MD Cardiology Follow up Ward kinsey MD Cardiology Follow up :Patient feels much better on Corlanor. doesn't get as dizzy and has better exercise tolerance when taking this medication. There is no other medication that would slow her HR without lowering her BP and she is symptomatically improved. We will try to get the medicine approve by her insurance. Ward Fried MD Cardiology Follow up Ward kinsey MD Cardiology Follow up :No arrhythmias on her monitor. Symptomatic with palpitations/dizziness/nausea after a few minutes on the routine stress test. Jackson Noe Cardiology Follow up:Will try Co rlanor. Jackson Noe Cardiology Follow up :on PPI Henrietta Fried MD Cardiology Follow up Ward kinsey MD Cardiology Follow up :Obtain hol ter Ward Fried MD Cardiology Follow up :Will evaluate with routine stress, echo. C P is described as sharp, localized in medial chest and is exacerbated by laying flat, deep breathing. Is associated with shortness of breath and nausea Ward Fried MD Cardiology Follow up :On Lorazep eileen Ward Fried MD Cardiology Follow up :Continue on current meds. Per PCP H er updated medication list for this problem includes: Aspirin 81 81 Mg Oral Tablet Delayed Release (Aspirin) ..... One tab by mouth daily Metformin Hcl 500 Mg Oral Tablet (Metformin hcl) ..... One tab by mouth twice daily Victoza 18 Mg/3ml Subcutaneous Solution Pen-injector (Liraglutide) ..... Once a day Ward Fried MD Date Name Microalb/Creatinine Urine, Random Stress Routine Complete Echo Holter Monitor 48 hr Stress Routine Complete Echo Holter Monitor 24 Hr HISTORY OF PROCEDURES Procedure Date Procedure Name Provider Procedure Notes S tatus Complex e/m visit add on Ward Fried MD completed EKG Ward Fried MD completed Complex e/m visit add on Ward Fried MD completed EKG Ward Fried MD completed EKG William Cunha MD complet ed Holter, 24 or 48 Ward Fried MD com pleted EKG Ward Fried MD completed
--- OUTSIDE RECORDS SUMMARY | 2024-10-16 10:57 | XMS_ITS | Encounter Summary ---
Author Organization [facility] Address [address] [place] [address] Care Team Providers Care Electrical Systems Engineer Name Role Phone Marcelle Hernandez MD Primary Care Provider [phone] Reason for Visit * Reason Onset Date Comments Scheduling 06/27/2019 Encounter Details Date Type Department Care Team (Late st Contact Info) Description 06/27/2019 Telephone [facility] [address] [place] [address] Mita Crum MD [facility] [place] [address] Scheduling Social History Tobacco Use Types Packs/Day Years Used Date Smoking Tobacco: Never Smokeless Tobacco: Never Alcohol Use Standard Drinks/Week Comments No 0 (1 standard drink = 0.6 oz pur e alcohol) Comments No Sex and Gender Information Value Date Recorded Sex Assigned at Not on file Legal Sex Female 5:45 AM REAL ESTATE SERVICES ADMINISTRATOR Gender Identity Not on file Sexual Orientation Not on file documented as of this encounter Functional Status * Is person deaf or have serious hearing difficulty? Answer Date of Assessment Author No 02/03/2016 9:40 AM Esperanza Villa RN * Is person blind or have serious difficulty seeing? Answer Date of Assessment Author No 02/03/2016 9:40 AM Esperanza Villa RN * Does person have serious difficulty walking/climbing stairs? Answer Date of Assessment Author No 02/03/2016 9:40 AM CDT Esperanza Gordon RN * Does person have difficulty dressing/bathing? Answer Date of Assessment Author No 02/03/2016 9:40 AM EMILYT Esperanza Gordon RN * Does person have difficulty doing errands alone? Answer Date of Assessment Author No 02/03/2016 9:40 AM EMILYT Esperanza Gordon RN documented as of this encounter Mental Status * Does person have difficulty concentrating/remembering/making decisions? Answer Entry Date Author No 02/03/2016 9:40 AM EMILYT Esperanza Gordon RN documented in this encounter Miscellaneous Notes * Telephone Encounter - Felisa Ramesh - 09/17/2019 4:22 PM CDT Offered Mom sooner scope date, but Mom would prefer to wait until 12/25 since the pandemic is starting to get worse. I informed her that another department would be in touch with her soon for a virtual visit to discuss the pt's diabetes medication, and Mom said that she would love to speak with them, but she does not want to bring the pt in at the moment and does not own a computer to have a virtual visit. I informed Mom that she could discuss this in greater detail when the Diabetes department contacts her to figure out how to proceed. * Telephone Encounter - Glenna Calderon RN - 09/12/2019 6:36 AM CDT Prep letter written and mailed to home address on file. * Telephone Encounter - Felisa Ramesh - 09/11/2019 4:40 PM CDT EGD rescheduled for Sunday12/26/19 at 10:[address] Crum. Mom would like prep mailed to her at: [address] [id number] Of note: Pt has diabetes, and Mom says that they (she did not specify) will not prescribe her medicine until we perform the scope. However, she expressed understanding at having to reschedule. * Telephone Encounter - Ciera Peterson RN - 09/10/2019 3:00 PM CDT Discussed plan to reschedule EGD, mom is aware that laboratory secretary will be calling to arrange. * Telephone Encounter - Mita Crum MD - 09/10/2019 2:56 PM CDT Unfortunately need to reschedule Violet's elective upper endoscopy for 2-3 months given COVID19 concerns * Telephone Encounter - Emily Lozano RN - 08/18/2019 10:51 AM REAL ESTATE SERVICES ADMINISTRATOR Verified orders in epic. Prep instructions given to family in clinic. ESTATE SERVICES ADMINISTRATOR * Telephone Encounter - Nayeli Toledo - 08/18/2019 10:49 AM REAL ESTATE SERVICES ADMINISTRATOR Spoke with Stephanie in the clinic, scheduled EGD for 09/19/2019 @ 2:[address] Crum. ESTATE SERVICES ADMINISTRATOR * Telephone Encounter - Glenna Calderon RN - 06/27/2019 1:28 PM CST Patient will need appointment with with MD before any procedures are ordered/scheduled. Will route to scheduling. May schedule with any provider as it has been so long since she has been seen. ESTATE SERVICES ADMINISTRATOR * Telephone Encounter - Felisa Ramesh - 06/27/2019 1:22 PM CST Mom called and left a message that Dr. Madsen from [facility] is referring this pt to Dr. Crum. Mom says that Dr. Madsen wants the pt to have an upper GI scheduled before she will give medication. ESTATE SERVICES ADMINISTRATOR documented in this encounter Plan of Treatment Not on file documented as of this encounter Visit Diagnoses Not on filedocumented in this encounter Additional Health Concerns Infection Onset Date Last Indicated Resolved Time COVID-19 Under Investigation 12/22/2019 12/23/2019 12/24/2019 2:58 PM CDT documented as of this encounter Care Teams Electrical Systems Engineer Relationship Specialty Start Date End Date Marcelle Hernandez MD [address] [place] [address] PCP - General Pediatrics 12/27/15 09/30/24 documented as of this encounter
--- OUTSIDE RECORDS SUMMARY | 2024-10-16 10:57 | XMS_ITS | Patient Health Record ---
[facility] Address [address] [address] Care Team Providers Care Java Development Team Lead Name Role Phone Cici Fuller Primary Care Provider Allergies Allergen (clinical drug ingredient) Drug/Non Drug Allergy documented on EMR Reaction Allergy Type Onset Date Status Z PACK (uncoded) Unknown Allergy Act jae Pepper PEPPER (uncoded) Unknown Allergy Act jae Results Component Value Reference Range Notes COMPREHENSIVE METABOLIC PANE L Reviewed date:05/17/2024 01:39:32 PM Interpretation: Performing Lab:KS, [facility], [address], [place], [address] Ebenezer Banks MD Notes/Report: VITAMIN D, 25-HYDROXY, LC/MS /MS Reviewed date:05/17/2024 01:59:29 PM Interpretation: Performing Lab:KS, [facility], [address], [place], [address] Ebenezer Banks MD Notes/Report: ACTH, PLASMA Reviewed date:05/21/2024 09:55:19 PM Interpretation: Performing Lab:AMD, [facility], [address], [place], [address] Chadwick Underwood M.D.,PhD Notes/Report: T3, FREE Reviewed date:05/17/2024 01:59:36 PM Interpretation: Performing Lab:KS, [facility], [address], [place], [address] Ebenezer Banks MD Notes/Report: CORTISOL, TOTAL Reviewed date:05/17/2024 02:05:26 PM Interpretation: Performing Lab:KS, [facility], [address], [place], [address] Ebenezer Banks MD Notes/Report: DHEA SULFATE Reviewed date:05/17/2024 02:05:44 PM Interpretation: Performing Lab:KS, [facility], [address], [place], [address] Ebenezer Banks MD Notes/Report: ESTRADIOL Reviewed date:05/17/2024 01:59:50 PM Interpretation: Performing Lab:KS, [facility], [address], [place], [address] Ebenezer Banks MD Notes/Report: FSH Reviewed date:05/17/2024 02:05:53 PM Interpretation: Performing Lab:KS, [facility], [address], [place], [address] Ebenezer Banks MD Notes/Report: HEMOGLOBIN A1c Reviewed date:05/17/2024 01:59:21 PM Interpretation: Performing Lab:[facility], [address], [place], [address] Ebenezer Banks Notes/Report: INSULIN Reviewed date:05/17/2024 02:06:08 PM Interpretation: Performing Lab:KS, [facility], [address], [place], [address] Ebenezer Banks MD Notes/Report: LH Reviewed date:05/17/2024 02:06:01 PM Interpretation: Performing Lab:KS, [facility], [address], [place], [address] Ebenezer Banks MD Notes/Report: MAGNESIUM Reviewed date:05/17/2024 01:39:49 PM Interpretation: Performing Lab:KS, [facility], [address], [place], [address] Ebenezer Banks MD Notes/Report: CBC (INCLUDES DIFF/PLT) Reviewed date:05/17/2024 01:31:12 PM Interpretation: Performing Lab:KS, [facility], [address], [place], [address] Ebenezer Banks MD Notes/Report: MICROALBUMIN, RANDOM URINE ( W/CREATININE) Reviewed date:05/17/2024 01:39:16 PM Interpretation: Performing Lab:JOHN, [facility], [address], [place], [address] Ebenezer Banks MD Notes/Report: VITAMIN B12/FOLATE, SERUM PA CHA Reviewed date:05/17/2024 01:59:43 PM Interpretation: Performing Lab:[facility], [address], [place], [address] Ebenezer Banks MD Notes/Report: PROGESTERONE Reviewed date:05/17/2024 02:00:13 PM Interpretation: Performing Lab:[facility], [address], [place], [address] Ebenezer Banks MD Notes/Report: IRON AND TOTAL IRON BINDING CAPACITY Reviewed date:05/17/2024 01:39:41 PM Interpretation: Performing Lab:[facility], [address], [place], [address] Ebenezer Banks MD Notes/Report: LIPID PANEL Reviewed date:05/17/2024 01:39:59 PM Interpretation: Performing Lab:[facility], [address], [place], [address] Ebenezer Banks MD Notes/Report: T4, FREE Reviewed date:05/17/2024 01:59:57 PM Interpretation: Performing Lab:[facility], [address], [place], [address] Ebenezer Banks MD Notes/Report: TSH Reviewed date:05/17/2024 02:00:05 PM Interpretation: Performing Lab:JOHN, [facility], [address], [place], [address] Ebenezer Banks MD Notes/Report: THYROID PEROXIDASE ANTIBODIE S Reviewed date:05/17/2024 02:05:36 PM Interpretation: Performing Lab:CB, [facility], [address] [place], [address] Paresh Lee Notes/Report: THYROID PEROXIDASE ANTIBODIES <1 <9 IU/mL TESTOSTERONE, FREE (DIALYSIS ) AND TOTAL,MS Reviewed date:05/17/2024 01:57:16 PM Interpretation: Performing Lab:Z3E, [facility], [address] [facility] [address] [address], [address], [place], [address] Chanel Mcfadden MD,PhD Notes/Report: TESTOSTERONE, TOTAL, MS 19 2-45 ng/dL For additional information, please refer to https://education.[employer].com/faq/WQO565 (This link is being provided for informational/educational purposes only.) (Note) This test was developed and its analytical performance characteristics have been determined by [employer]. It has not been cleared or approved by the FDA. This assay has been validated pursuant to the CLIA regulations and is used for clinical purposes. TESTOSTERONE, FREE 4.5 0.1-6.4 pg/mL (Note) This test was developed and its analytical performance characteristics have been determined by [employer]. It has not been cleared or approved by the FDA. This assay has been validated pursuant to the CLIA regulations and is used for clinical purposes. [facility] [address] [address],[address] [facility] [address] Chanel Mcfadden MD, PhD Reason For Referral No Information Medications Medication SIG (Take, Route, Frequency, Duration) Notes Start Date End Date Status dexAMETHasone 1 MG 1 tablet Orally at 1 0 pm night before 8 am cortisol for 1 days 05/08/2024 Active Corlanor 5 MG 1 tablet with meals Orally Twice a day Active Liraglutide 18 MG/3ML inject 0.6 mg once daily x 1 week then increase to 1.2 mg once daily thereafter Subcutaneous once daily for 90 days 06/09/2024 Active lamoTRIgine Active Rosuvastatin Calcium 40 mg once daily Active metFORMIN HCl ER 500 MG 1 tablet with ev ening meal Orally Once a day twice daily Active dexAMETHasone 1 MG 1 tablet Orally at 1 0 pm night before 8 am cortisol for 1 days 06/09/2024 Active metFORMIN HCl ER 500 MG 1 tablet Orally twice daily with meals for 90 days 06/09/2024 Active Problems Problem Type SNOMED Code ICD Code Onset Dates Problem Status W/U Status Risk Notes Problem Vitamin D deficiency (85552495) Vitamin D deficiency, unspecified (E55.9) Active confirmed Problem Hyperglycemia due to type 2 diabetes mellitus (703969384897290) Type 2 diabetes mellitus with hyperglycemia (E11.65) Active confirmed Problem Obesity (560853812) Obesity, unspecified (E66.9) Active confirmed Problem 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 [address] [place] [address] 05/08/2024 Cici Fuller Type 2 diabetes elle itus with hyperglycemia E11.65 ; Other fatigue R53.83 ; Obesity, unspecified E66.9 ; Encounter for screening for lipoid disorders Z13.220 ; Irregular menstruation, unspecified N92.6 ; Vitamin D deficiency, unspecified E55.9 and Nontoxic goiter, unspecified E04.9 [facility] [employer] [address] [place] [address] 06/09/2024 Cici Fuller Type 2 diabetes elle itus with hyperglycemia E11.65 ; Obesity, unspecified E66.9 ; Irregular menstruation, unspecified N92.6 ; Vitamin D deficiency, unspecified E55.9 and Dietary counseling and surveillance Z71.3 Assessments Encounter Date Diagnosis (ICD Code) Assessment Notes Treatment Notes Treatment Clinical Notes Section Notes 05/08/2024 Type 2 diabetes mellitus with hyperglycemia (ICD-10 - E11.65) 05/08/2024 Other fatigue (ICD-10 - R53.83) 06/09/2024 Type 2 diabetes mellitus with hyperglycemia (ICD-10 - E11.65) 05/08/2024 Obesity, unspecified (ICD-10 - E66.9) 06/09/2024 Obesity, unspecified (ICD-10 - E66.9) 05/08/2024 Encounter for screening for lipoid disorders (ICD-10 - Z13.220) 06/09/2024 Irregular menstruation, unspecified (ICD-10 - N92.6) 05/08/2024 Irregular menstruation, unspecified (ICD-10 - N92.6) 06/09/2024 Vitamin D deficiency, unspecified (ICD-10 - E55.9) 05/08/2024 Vitamin D deficiency, unspecified (ICD-10 - E55.9) 06/09/2024 Dietary counseling and surveillance (ICD-10 - Z71.3) 05/08/2024 Nontoxic goiter, unspecified (ICD-10 - E04.9) 05/08/2024 Other Assessment and Plan: 1. Diabetes Mellitus Type 2:- Patient is currently on Victoza 0.2 mg and Metformin 500 mg twice a day. Recent blood sugar levels have improved, with a morning reading of 132.- Plan: Continue Victoza and Metformin. Increase Victoza to 1.2 mg after one week if tolerated. Monitor blood sugar levels and adjust medications as needed. Patient is awaiting a continuous glucose monitor. 2. Hypothyroidism:- Patient reports a feeling of fullness in the thyroid area. Physical examination revealed a slightly enlarged thyroid.- Plan: Order thyroid ultrasound to evaluate for any structural abnormalities. Monitor thyroid function tests and adjust medications as needed. 3. Tachycardia:- Patient is currently on Corlanor due to intolerance to other blood pressure medications.- Plan: Continue Corlanor. Monitor heart rate and blood pressure regularly. Follow up with cardiology (Dr. Nunn and Dr. Madden) as needed. 4. 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 Encourage the use of an EpiPen if needed. Consider referral to an geological e logger for further evaluation and management. 5. Insomnia:- Patient reports difficulty sleeping at night and sleeping during the day.- Plan: Evaluate cortisol levels to rule out any hormonal imbalances. Consider referral to a sleep specialist if insomnia persists. 6. Overweight:- Patient's BMI is under 30, indicating a slightly overweight status.- Plan: Encourage a healthy diet and regular exercise. Monitor weight and adjust diabetes medications as needed. 7. Telehealth visits:- Patient inquired about phone visits.- Plan: Confirm insurance coverage for telehealth visits. Schedule telehealth appointments as needed. 8. Imaging:- Patient needs an x-ray and ultrasound for thyroid evaluation.- Plan: Provide options for imaging centers ([facility], [facility], or [place]). Schedule imaging appointments and follow up with results. Spent 45 minutes preparing to see the patient (ex review of tests/chart), obtaining and / or reviewing separately obtained history, performing a medically appropriate examination and/or evaluation, counseling and educating the patient/family/career development coordinator, ordering medications, tests, or procedures, referring and communicating with other health healthcare network consultant, documenting clinical information in the electronic or other health record, independently interpreting results and communicating results to the patient/family/career development coordinator and care coordinating patient plan. Patient alert and oriented x 4 and aware of discussion noted above and in agreeance to plan in management of type 2 DM, irregular cycles, weight gain/overweight, goiter. 06/09/2024 Other Assessment and Plan: 1. Type 2 Diabetes Mellitus- A1c 8.5%, indicating poor glycemic control- Currently on metformin 500 mg twice daily- Previously tried Mounjaro and Ozempic, but experienced side effects- Using Dexcom for glucose monitoringPlan:- Discontinue Mounjaro and Ozempic due to side effects- Start Victoza 0.6 mg once daily for the first week, then increase to 1.2 mg once daily as a daily injection in the abdomen- Encourage a healthy diet with fruits, vegetables, and limited starches- Recommend dark chocolate for sweet cravings- Monitor glucose levels with Dexcom and follow up in 6-8 weeks 2. Hyperlipidemia- Currently on rosuvastatin 40 mg- Cholesterol levels are well-controlledPlan :- Continue rosuvastatin 40 mg- Encourage a heart-healthy diet 3. Possible Hypercortisolism- Dexamethasone suppression test pendingPlan:- Send another dexamethasone pill to the pharmacy- Instruct the patient to take dexamethasone at 10 p.m. and get cortisol and dexamethasone levels the next morning- Ensure the patient's mother has the lab order- Follow up on test results and adjust treatment plan accordingly 4. Sleep disturbance- Patient reports being a night owl and not sleeping wellPlan:- Assess cortisol levels to rule out overactive adrenal glands as a contributing factor- Encourage the patient to establish a regular sleep schedule 5. Vitamin D deficiency- Low vitamin D levelsPlan:- Recommend [id number] vitamin D supplement once daily 6. Iron levels- Iron levels are within normal rangePlan:- No intervention needed at this time Follow-up:- Schedule a follow-up appointment in 6-8 weeks to assess the patient's response to Victoza and review lab results- Address any concerns or problems during the follow-up visit- Spent 15 minutes preventative counseling patient on dietary recommendations and changes in setting of hyperglycemia- need to restrict refined sugars and processed foods and incorporate up to 150 minutes of moderate level activity weekly. Spent 25 minutes preparing to see the patient (ex review of tests/chart), obtaining and / or reviewing separately obtained history, performing a medically appropriate examination and/or evaluation, counseling and educating the patient/family/career development coordinator, ordering medications, tests, or procedures, referring and communicating with other health healthcare network consultant, documenting clinical information in the electronic or other health record, independently interpreting results and communicating results to the patient/family/career development coordinator and care coordinating patient plan. Patient alert and oriented x 4 and aware of discussion noted above and in agreeance to plan in management of uncontrolled type 2 DM, dyslipidemia, obesity/weight management and insomnia. Due to the nature of telemedicine, the ability to do physical assessment was limited to what can be accomplished by patient directed telehealth visit based on instruction. Those limits are understood by the patient and myself. Impression is based on history, available information, and physical findings accomplished with telehealth visit. Chronic disease/problem list/ medication list reviewed and updated where indicated. Discussed diagnosis, plan including risks, benefits, and options of treatment. Advised to call for new, worsening, or persistent symptoms. Level of patient risk was of moderate complexity due to the documented nature of presentation, the information assessment required and the nature of the development of an evaluation and treatment plan as documented. PMH, FHx, SHx, Surgical Hx, Quality management review carried out and addressed as documented today as part of this visit. Medication list was reviewed and adjusted as indicated. Medication requiring a refill was addressed. Risk and benefits of any new medications were discussed and all questions were answered. Plan Of Treatment Pending Test Test Name Order Date Ultrasound thyroid 05/08/2024 Insurance Providers Payer Name Payer Address Payer Phone Subscriber Number Group Number Insured Name Patient Relationship to Insured Coverage Start Date Coverage End Date [employer] Medicare Part B [place] Claims Department [address] [address] [place] [address] [id number] Violet Lomeli Self - patient is the insured [employer] [place] [id number] [employer] [facility] [place] [id number] Violet Lomeli Self - patient is the insured Medical (General) History Medical History History ICD Code TACHICARDIA DIABETIES Surgical History Surgery Date(Month/Year) 3 BACK SURGRIES
--- OUTSIDE RECORDS SUMMARY | 2024-10-16 10:57 | XMS_ITS | Encounter Summary ---
Author Organization [facility] Address [address] [place] [address] Care Team Providers Care Milk Collector Name Role Phone Hernan Madden MD Primary Care Provider Encounter Details Date Type Department Care Team (Late st Contact Info) Description 10/16/2024 10:15 AM CDT Office Visit [facility] Oncology and Hematology - [place] [address] [facility] [address] [place] [address] Mike Llanes MD [address] [facility] [address] [place] [address] Arrived Social History Tobacco Use Types Packs/Day Years Used Date Smoking Tobacco: Never Smokeless Tobacco: Never Tobacco Cessation:Counseling Given: Not Answered Alcohol Use Standard Drinks/Week Comments Yes 0 (1 standard drink = 0.6 oz pur e alcohol) occassionally Comments Unknown Sex and Gender Information Value Date Recorded Sex Assigned at Not on file Legal Sex Female 1:45 PM [employer]ER [employer] Gender Identity Not on file Sexual Orientation Not on file documented as of this encounter Last Filed Vital Signs Vital Sign Reading Time Taken Comments Blood Pressure 116/73 10/16/2024 10:32 AM CDT Pulse 95 10/16/2024 10:32 AM CDT Temperature 36.9 C (98.4 F) 10/16/2024 10:32 AM CDT Respiratory Rate 16 10/16/2024 10:32 AM CDT Oxygen Saturation 98% 10/16/2024 10:32 AM CDT Inhaled Oxygen Concentration - - Weight 76.4 kg (168 lb 6.4 oz) 10/16/2024 10:32 AM CDT Height - - Body Mass Index 27.18 06/12/2024 11:49 AM ROLLER SKATE ASSEMBLER documented in this encounter Plan of Treatment Not on file documented as of this encounter Visit Diagnoses Not on filedocumented in this encounter Care Teams Milk Collector Relationship Specialty Start Date End Date Hernan Madden MD [address] [place] [phone] PCP - General Internal Medicine 06/27/24 documented as of this encounter
--- OUTSIDE RECORDS SUMMARY | 2024-10-16 10:57 | XMS_ITS | Patient Health Record ---
Author Organization [facility] As VM Discovery Address [address] [place] [address] Care Team Providers Care Crop Duster Helper Name Role Phone Maryanne COLLADO, Hernan Primary Care Provider Un available Tian Frazier Unavailable [phone] Maritza Nicole Unavailable [phone] Migration, Provider Unavailable Unavailable Allergies Allergen (clinical drug ingredient) Drug/Non Drug Allergy documented on EMR Reaction Allergy Type Onset Date Status DAYQUIL SINUS PRESSURE/PAIN (uncoded) Unknown Allergy 08/14/2023 Active ROBITUSSIN (uncoded) Unknown Allergy Active Azithromycin Unknown Drug Allergy 08/14/2023 Act jae Chlor-Trimeton Unknown Drug Allergy 08/14/2023 A ctive Methylprednisol & Bu piv & Lido rash Drug Allergy Active Reason For Referral No Information Medications Medication SIG (Take, Route, Frequency, Duration) Notes Start Date End Date Status Venlafaxine HCl ER 75 MG 1 capsule Oral Once a day for 90 days Active Ozempic (0.25 or 0.5 MG/DOSE) 2 MG/3ML Subcutaneous *Pick strength-form from [employer] for eRX* 11/07/2023 Active Farxiga 10 MG Oral 11/07/2023 Activ e ProAir HFA 108 (90 Base) MCG/ACT Inhalation 11/07/2023 Active lamoTRIgine 100 MG 1 tablet Oral twice a day for 90 days Active Immunizations Vaccine Route Administration Date Status Comme nts VesLabs Covid-19 Vac cine 2nd dose Unknown 06/24/2021 Administered Jaguar Covid-19 Vaccine Unknown 09/22/2020 Administere d Social History Tobacco Use: Social History Observation Description Date Details (start date - stop date) Never Smoker NA - NA Sex Assigned At : Social History Observation Description Sex Assigned At Female Tobacco Control (Standard) Question Answer Notes Tobacco use: Nonsmoker Problems Problem Type SNOMED Code ICD Code Onset Dates Problem Status W/U Status Risk Notes Problem Mild recurrent major depression (59056083) Major depressive disorder, recurrent, mild (F33.0) 11/07/19 Active confirmed Problem Generalized anxiety disorder (02988635) Generalized anxiety disorder (F41.1) 11/07/19 Active confirmed Problem Posttraumatic stress disorder (87746037) Post-traumatic stress disorder, chronic (F43.12) 11/07/19 Active confirmed Problem Insomnia disorder related to another mental disorder (70528477) Insomnia due to other mental disorder (F51.05) 11/07/19 Active confirmed Problem Intermittent explosive disorder (17162123) Intermittent explosive disorder (F63.81) 11/07/19 Active confirmed Problem Attention deficit hyperactivity disorder, combined type (28486484) Attention-deficit hyperactivity disorder, combined type (F90.2) 11/07/19 Active confirmed Vital Signs Heart Rate 94 /min 09/02/2024 Blood pressure diastolic 68 mm Hg 09/02/2024 Height-cm 165.10 cm 09/02/2024 Weight-kg 77.57 kg 09/02/2024 Height 65.00 in 09/02/2024 Blood pressure systolic 97 mm Hg 09/02/2024 Weight 171 lbs 09/02/2024 BMI 28.45 kg/m2 09/02/2024 Encounters Encounter Location Date Provider Diagnosis [facility] [address] [facility] [address] [place] [address] 11/07/2023 Tian Frazier Intermittent explosi ve disorder F63.81 ; Post-traumatic stress disorder, chronic F43.12 ; Attention-deficit hyperactivity disorder, combined type F90.2 ; Generalized anxiety disorder F41.1 ; Insomnia due to other mental disorder F51.05 and Major depressive disorder, recurrent, mild F33.0 [facility] [address] [facility] [address] [place] [address] 01/04/2024 Tian Frazier Intermittent explosi ve disorder F63.81 ; Post-traumatic stress disorder, chronic F43.12 ; Attention-deficit hyperactivity disorder, combined type F90.2 ; Generalized anxiety disorder F41.1 ; Insomnia due to other mental disorder F51.05 and Major depressive disorder, recurrent, mild F33.0 [facility] [address] [address] 04/07/2024 Tian Frazier Intermittent explosi ve disorder F63.81 ; Post-traumatic stress disorder, chronic F43.12 ; Attention-deficit hyperactivity disorder, combined type F90.2 ; Generalized anxiety disorder F41.1 ; Insomnia due to other mental disorder F51.05 ; Major depressive disorder, recurrent, mild F33.0 and Marijuana use F12.90 [facility] [address] [address] 07/07/2024 Tian Frazier [address] [address] 09/02/2024 Tian Frazier Generalized anxiety disorder F41.1 ; Major depressive disorder, recurrent, mild F33.0 ; Post-traumatic stress disorder, chronic F43.12 ; Attention-deficit hyperactivity disorder, combined type F90.2 ; Intermittent explosive disorder F63.81 ; Insomnia due to other mental disorder F51.05 ; Encounter for screening for depression Z13.31 ; Encounter for screening for cardiovascular disorders Z13.6 and Marijuana use F12.[address] [address] 11/03/2023 Provider Migration [address] [address] 11/04/2023 Provider Migration Assessments Encounter Date Diagnosis (ICD Code) Assessment Notes Treatment Notes Treatment Clinical Notes Section Notes 11/07/2023 Major depressive disorder, recurrent, mild (ICD-10 - F33.0) 11/07/2023 Generalized anxiety disorder (ICD-10 - F41.1) 11/07/2023 Post-traumatic stress disorder, chronic (ICD-10 - F43.12) 11/07/2023 Insomnia due to other mental disorder (ICD-10 - F51.05) 11/07/2023 Intermittent explosive disorder (ICD-10 - F63.81) 11/07/2023 Attention-deficit hyperactivity disorder, combined type (ICD-10 - F90.2) 01/04/2024 Intermittent explosive disorder (ICD-10 - F63.81) 1. Depression: - Patient reports feeling depressed and lonely, with a preference for being around younger people. Plan: - Encourage the patient to engage in social activities, such as having friends over, going to movies, walking, and doing crafts. - Continue current medications (Lamotrigine and Venlafaxine). - Schedule a follow-up appointment in three months. 2. Insomnia: - Patient reports difficulty sleeping and staying up late, often waiting for phone calls from her boyfriend. Plan: - Recommend sleep hygiene practices, such as establishing a consistent bedtime routine, putting the phone down at night, and taking a shower earlier in the evening. - Encourage the patient to consider using Trazodone as prescribed for sleep if needed. - Reevaluate sleep patterns at the next appointment. 3. Anger management: - Patient reports improvement in managing anger by going outside and taking a breather when feeling angry. Plan: - Continue to encourage the use of healthy coping strategies for anger management. - Monitor progress at the next appointment. 4. Relationship issues: - Patient discusses various relationship challenges, including with her father, sister, and friends. Plan: - Encourage the patient to maintain open communication with her family members and consider setting boundaries with friends who may be taking advantage of her. - Suggest the possibility of counseling to help with relationship issues, although the patient currently does not feel the need for it. 5. Education and literacy: - Patient declines the suggestion of receiving help to improve reading and spelling skills. Plan: - Respect the patient's decision and continue to monitor her overall well-being and progress in other areas. 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 Plan: - Encourage the patient to create a budget and prioritize spending on necessities, such as purchasing new bras as needed. - Revisit the topic at the next appointment if necessary. 04/07/2024 Intermittent explosive disorder (ICD-10 - F63.81) 1. Intermittent Explosive Disorder: - Continue lamotrigine 100 mg twice a day Plan: - Monitor mood stability and any changes in anger or mood swings - Encourage the patient to consider counseling for additional support 2. Depression and Anxiety: - Continue venlafaxine 75 mg once a day Plan: - Assess the effectiveness of the medication in managing symptoms - Encourage the patient to maintain a healthy lifestyle, including regular sleep, exercise, and a balanced diet 3. Insomnia: - Patient uses cannabis for sleep Plan: - Encourage the patient to establish a regular sleep schedule and practice good sleep hygiene - Monitor the use of cannabis for sleep and any potential side effects - Consider referral to a sleep specialist if symptoms persist 4. Tobacco Use: Plan: - Assess the patient's interest in smoking cessation - Provide resources and support for quitting smoking, if desired - Monitor the patient's smoking habits and any changes in health status related to smoking Follow-up: - Schedule a follow-up appointment in 3 months or sooner if any concerns arise 09/02/2024 Generalized anxiety disorder (ICD-10 - F41.1) 09/02/2024 Major depressive disorder, recurrent, mild (ICD-10 - F33.0) stable 01/04/2024 Post-traumatic stress disorder, chronic (ICD-10 - F43.12) 1. Depression: - Patient reports feeling depressed and lonely, with a preference for being around younger people. Plan: - Encourage the patient to engage in social activities, such as having friends over, going to movies, walking, and doing crafts. - Continue current medications (Lamotrigine and Venlafaxine). - Schedule a follow-up appointment in three months. 2. Insomnia: - Patient reports difficulty sleeping and staying up late, often waiting for phone calls from her boyfriend. Plan: - Recommend sleep hygiene practices, such as establishing a consistent bedtime routine, putting the phone down at night, and taking a shower earlier in the evening. - Encourage the patient to consider using Trazodone as prescribed for sleep if needed. - Reevaluate sleep patterns at the next appointment. 3. Anger management: - Patient reports improvement in managing anger by going outside and taking a breather when feeling angry. Plan: - Continue to encourage the use of healthy coping strategies for anger management. - Monitor progress at the next appointment. 4. Relationship issues: - Patient discusses various relationship challenges, including with her father, sister, and friends. Plan: - Encourage the patient to maintain open communication with her family members and consider setting boundaries with friends who may be taking advantage of her. - Suggest the possibility of counseling to help with relationship issues, although the patient currently does not feel the need for it. 5. Education and literacy: - Patient declines the suggestion of receiving help to improve reading and spelling skills. Plan: - Respect the patient's decision and continue to monitor her overall well-being and progress in other areas. 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 Plan: - Encourage the patient to create a budget and prioritize spending on necessities, such as purchasing new bras as needed. - Revisit the topic at the next appointment if necessary. 04/07/2024 Post-traumatic stress disorder, chronic (ICD-10 - F43.12) 1. Intermittent Explosive Disorder: - Continue lamotrigine 100 mg twice a day Plan: - Monitor mood stability and any changes in anger or mood swings - Encourage the patient to consider counseling for additional support 2. Depression and Anxiety: - Continue venlafaxine 75 mg once a day Plan: - Assess the effectiveness of the medication in managing symptoms - Encourage the patient to maintain a healthy lifestyle, including regular sleep, exercise, and a balanced diet 3. Insomnia: - Patient uses cannabis for sleep Plan: - Encourage the patient to establish a regular sleep schedule and practice good sleep hygiene - Monitor the use of cannabis for sleep and any potential side effects - Consider referral to a sleep specialist if symptoms persist 4. Tobacco Use: Plan: - Assess the patient's interest in smoking cessation - Provide resources and support for quitting smoking, if desired - Monitor the patient's smoking habits and any changes in health status related to smoking Follow-up: - Schedule a follow-up appointment in 3 months or sooner if any concerns arise 01/04/2024 Attention-deficit hyperactivity disorder, combined type (ICD-10 - F90.2) 1. Depression: - Patient reports feeling depressed and lonely, with a preference for being around younger people. Plan: - Encourage the patient to engage in social activities, such as having friends over, going to movies, walking, and doing crafts. - Continue current medications (Lamotrigine and Venlafaxine). - Schedule a follow-up appointment in three months. 2. Insomnia: - Patient reports difficulty sleeping and staying up late, often waiting for phone calls from her boyfriend. Plan: - Recommend sleep hygiene practices, such as establishing a consistent bedtime routine, putting the phone down at night, and taking a shower earlier in the evening. - Encourage the patient to consider using Trazodone as prescribed for sleep if needed. - Reevaluate sleep patterns at the next appointment. 3. Anger management: - Patient reports improvement in managing anger by going outside and taking a breather when feeling angry. Plan: - Continue to encourage the use of healthy coping strategies for anger management. - Monitor progress at the next appointment. 4. Relationship issues: - Patient discusses various relationship challenges, including with her father, sister, and friends. Plan: - Encourage the patient to maintain open communication with her family members and consider setting boundaries with friends who may be taking advantage of her. - Suggest the possibility of counseling to help with relationship issues, although the patient currently does not feel the need for it. 5. Education and literacy: - Patient declines the suggestion of receiving help to improve reading and spelling skills. Plan: - Respect the patient's decision and continue to monitor her overall well-being and progress in other areas. 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 Plan: - Encourage the patient to create a budget and prioritize spending on necessities, such as purchasing new bras as needed. - Revisit the topic at the next appointment if necessary. 09/02/2024 Post-traumatic stress disorder, chronic (ICD-10 - F43.12) 04/07/2024 Attention-deficit hyperactivity disorder, combined type (ICD-10 - F90.2) 1. Intermittent Explosive Disorder: - Continue lamotrigine 100 mg twice a day Plan: - Monitor mood stability and any changes in anger or mood swings - Encourage the patient to consider counseling for additional support 2. Depression and Anxiety: - Continue venlafaxine 75 mg once a day Plan: - Assess the effectiveness of the medication in managing symptoms - Encourage the patient to maintain a healthy lifestyle, including regular sleep, exercise, and a balanced diet 3. Insomnia: - Patient uses cannabis for sleep Plan: - Encourage the patient to establish a regular sleep schedule and practice good sleep hygiene - Monitor the use of cannabis for sleep and any potential side effects - Consider referral to a sleep specialist if symptoms persist 4. Tobacco Use: Plan: - Assess the patient's interest in smoking cessation - Provide resources and support for quitting smoking, if desired - Monitor the patient's smoking habits and any changes in health status related to smoking Follow-up: - Schedule a follow-up appointment in 3 months or sooner if any concerns arise 09/02/2024 Attention-deficit hyperactivity disorder, combined type (ICD-10 - F90.2) 01/04/2024 Generalized anxiety disorder (ICD-10 - F41.1) 1. Depression: - Patient reports feeling depressed and lonely, with a preference for being around younger people. Plan: - Encourage the patient to engage in social activities, such as having friends over, going to movies, walking, and doing crafts. - Continue current medications (Lamotrigine and Venlafaxine). - Schedule a follow-up appointment in three months. 2. Insomnia: - Patient reports difficulty sleeping and staying up late, often waiting for phone calls from her boyfriend. Plan: - Recommend sleep hygiene practices, such as establishing a consistent bedtime routine, putting the phone down at night, and taking a shower earlier in the evening. - Encourage the patient to consider using Trazodone as prescribed for sleep if needed. - Reevaluate sleep patterns at the next appointment. 3. Anger management: - Patient reports improvement in managing anger by going outside and taking a breather when feeling angry. Plan: - Continue to encourage the use of healthy coping strategies for anger management. - Monitor progress at the next appointment. 4. Relationship issues: - Patient discusses various relationship challenges, including with her father, sister, and friends. Plan: - Encourage the patient to maintain open communication with her family members and consider setting boundaries with friends who may be taking advantage of her. - Suggest the possibility of counseling to help with relationship issues, although the patient currently does not feel the need for it. 5. Education and literacy: - Patient declines the suggestion of receiving help to improve reading and spelling skills. Plan: - Respect the patient's decision and continue to monitor her overall well-being and progress in other areas. 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 Plan: - Encourage the patient to create a budget and prioritize spending on necessities, such as purchasing new bras as needed. - Revisit the topic at the next appointment if necessary. 04/07/2024 Generalized anxiety disorder (ICD-10 - F41.1) 1. Intermittent Explosive Disorder: - Continue lamotrigine 100 mg twice a day Plan: - Monitor mood stability and any changes in anger or mood swings - Encourage the patient to consider counseling for additional support 2. Depression and Anxiety: - Continue venlafaxine 75 mg once a day Plan: - Assess the effectiveness of the medication in managing symptoms - Encourage the patient to maintain a healthy lifestyle, including regular sleep, exercise, and a balanced diet 3. Insomnia: - Patient uses cannabis for sleep Plan: - Encourage the patient to establish a regular sleep schedule and practice good sleep hygiene - Monitor the use of cannabis for sleep and any potential side effects - Consider referral to a sleep specialist if symptoms persist 4. Tobacco Use: Plan: - Assess the patient's interest in smoking cessation - Provide resources and support for quitting smoking, if desired - Monitor the patient's smoking habits and any changes in health status related to smoking Follow-up: - Schedule a follow-up appointment in 3 months or sooner if any concerns arise 04/07/2024 Insomnia due to other mental disorder (ICD-10 - F51.05) 1. Intermittent Explosive Disorder: - Continue lamotrigine 100 mg twice a day Plan: - Monitor mood stability and any changes in anger or mood swings - Encourage the patient to consider counseling for additional support 2. Depression and Anxiety: - Continue venlafaxine 75 mg once a day Plan: - Assess the effectiveness of the medication in managing symptoms - Encourage the patient to maintain a healthy lifestyle, including regular sleep, exercise, and a balanced diet 3. Insomnia: - Patient uses cannabis for sleep Plan: - Encourage the patient to establish a regular sleep schedule and practice good sleep hygiene - Monitor the use of cannabis for sleep and any potential side effects - Consider referral to a sleep specialist if symptoms persist 4. Tobacco Use: Plan: - Assess the patient's interest in smoking cessation - Provide resources and support for quitting smoking, if desired - Monitor the patient's smoking habits and any changes in health status related to smoking Follow-up: - Schedule a follow-up appointment in 3 months or sooner if any concerns arise 01/04/2024 Insomnia due to other mental disorder (ICD-10 - F51.05) 1. Depression: - Patient reports feeling depressed and lonely, with a preference for being around younger people. Plan: - Encourage the patient to engage in social activities, such as having friends over, going to movies, walking, and doing crafts. - Continue current medications (Lamotrigine and Venlafaxine). - Schedule a follow-up appointment in three months. 2. Insomnia: - Patient reports difficulty sleeping and staying up late, often waiting for phone calls from her boyfriend. Plan: - Recommend sleep hygiene practices, such as establishing a consistent bedtime routine, putting the phone down at night, and taking a shower earlier in the evening. - Encourage the patient to consider using Trazodone as prescribed for sleep if needed. - Reevaluate sleep patterns at the next appointment. 3. Anger management: - Patient reports improvement in managing anger by going outside and taking a breather when feeling angry. Plan: - Continue to encourage the use of healthy coping strategies for anger management. - Monitor progress at the next appointment. 4. Relationship issues: - Patient discusses various relationship challenges, including with her father, sister, and friends. Plan: - Encourage the patient to maintain open communication with her family members and consider setting boundaries with friends who may be taking advantage of her. - Suggest the possibility of counseling to help with relationship issues, although the patient currently does not feel the need for it. 5. Education and literacy: - Patient declines the suggestion of receiving help to improve reading and spelling skills. Plan: - Respect the patient's decision and continue to monitor her overall well-being and progress in other areas. 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 Plan: - Encourage the patient to create a budget and prioritize spending on necessities, such as purchasing new bras as needed. - Revisit the topic at the next appointment if necessary. 09/02/2024 Intermittent explosive disorder (ICD-10 - F63.81) 09/02/2024 Insomnia due to other mental disorder (ICD-10 - F51.05) 04/07/2024 Major depressive disorder, recurrent, mild (ICD-10 - F33.0) stable 1. Intermittent Explosive Disorder: - Continue lamotrigine 100 mg twice a day Plan: - Monitor mood stability and any changes in anger or mood swings - Encourage the patient to consider counseling for additional support 2. Depression and Anxiety: - Continue venlafaxine 75 mg once a day Plan: - Assess the effectiveness of the medication in managing symptoms - Encourage the patient to maintain a healthy lifestyle, including regular sleep, exercise, and a balanced diet 3. Insomnia: - Patient uses cannabis for sleep Plan: - Encourage the patient to establish a regular sleep schedule and practice good sleep hygiene - Monitor the use of cannabis for sleep and any potential side effects - Consider referral to a sleep specialist if symptoms persist 4. Tobacco Use: Plan: - Assess the patient's interest in smoking cessation - Provide resources and support for quitting smoking, if desired - Monitor the patient's smoking habits and any changes in health status related to smoking Follow-up: - Schedule a follow-up appointment in 3 months or sooner if any concerns arise 01/04/2024 Major depressive disorder, recurrent, mild (ICD-10 - F33.0) 1. Depression: - Patient reports feeling depressed and lonely, with a preference for being around younger people. Plan: - Encourage the patient to engage in social activities, such as having friends over, going to movies, walking, and doing crafts. - Continue current medications (Lamotrigine and Venlafaxine). - Schedule a follow-up appointment in three months. 2. Insomnia: - Patient reports difficulty sleeping and staying up late, often waiting for phone calls from her boyfriend. Plan: - Recommend sleep hygiene practices, such as establishing a consistent bedtime routine, putting the phone down at night, and taking a shower earlier in the evening. - Encourage the patient to consider using Trazodone as prescribed for sleep if needed. - Reevaluate sleep patterns at the next appointment. 3. Anger management: - Patient reports improvement in managing anger by going outside and taking a breather when feeling angry. Plan: - Continue to encourage the use of healthy coping strategies for anger management. - Monitor progress at the next appointment. 4. Relationship issues: - Patient discusses various relationship challenges, including with her father, sister, and friends. Plan: - Encourage the patient to maintain open communication with her family members and consider setting boundaries with friends who may be taking advantage of her. - Suggest the possibility of counseling to help with relationship issues, although the patient currently does not feel the need for it. 5. Education and literacy: - Patient declines the suggestion of receiving help to improve reading and spelling skills. Plan: - Respect the patient's decision and continue to monitor her overall well-being and progress in other areas. 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 Plan: - Encourage the patient to create a budget and prioritize spending on necessities, such as purchasing new bras as needed. - Revisit the topic at the next appointment if necessary. 04/07/2024 Marijuana use (ICD-10 - F12.90) states helps with pain and mood THC/CBD may affect the metabolism of Lamotrigine by increasing its drug effect by the UGT2B7 Substrateby increasing or decreasing its drug effect by the CY Substrateby increasing its drug effect by the CY Substrate 1. Intermittent Explosive Disorder: - Continue lamotrigine 100 mg twice a day Plan: - Monitor mood stability and any changes in anger or mood swings - Encourage the patient to consider counseling for additional support 2. Depression and Anxiety: - Continue venlafaxine 75 mg once a day Plan: - Assess the effectiveness of the medication in managing symptoms - Encourage the patient to maintain a healthy lifestyle, including regular sleep, exercise, and a balanced diet 3. Insomnia: - Patient uses cannabis for sleep Plan: - Encourage the patient to establish a regular sleep schedule and practice good sleep hygiene - Monitor the use of cannabis for sleep and any potential side effects - Consider referral to a sleep specialist if symptoms persist 4. Tobacco Use: Plan: - Assess the patient's interest in smoking cessation - Provide resources and support for quitting smoking, if desired - Monitor the patient's smoking habits and any changes in health status related to smoking Follow-up: - Schedule a follow-up appointment in 3 months or sooner if any concerns arise 09/02/2024 Encounter for screening for depression (ICD-10 - Z13.31) 09/02/2024 Encounter for screening for cardiovascular disorders (ICD-10 - Z13.6) 09/02/2024 Marijuana use (ICD-10 - F12.90) states helps with pain and mood THC/CBD may affect the metabolism of Lamotrigine by increasing its drug effect by the UGT2B7 Substrateby increasing or decreasing its drug effect by the CY Substrateby increasing its drug effect by the CY Substrate 09/02/2024 Bryce Mack, female patient with history of depression and anxiety, presenting for medication management and follow-up. Major Depressive Disorder Assessment: Patient reports improved mood, though still experiences fluctuations. Recent stressor includes loss of pet fish. Engages in activities such as walking, socializing, and caring for pets. Sleep disturbances noted, with patient staying up late on the phone. Currently on venlafaxine 75 mg daily for mood management. Plan: - Continue venlafaxine 75 mg PO daily - Encourage regular sleep schedule - Follow up in 3 months Anxiety Disorder Assessment: Patient reports restlessness and need for constant activity to avoid aggravation. Currently on lamotrigine 100 mg twice daily for mood stabilization, which may also help with anxiety symptoms. Plan: - Continue lamotrigine 100 mg PO twice daily - Encourage stress-reducti on techniques and regular physical activity as tolerated Chronic Pain Assessment: Patient reports variable ability to walk due to back and hip pain. Uses marijuana occasionally for pain management. Plan: - Advised on risks and benefits of marijuana use for pain management - Encourage non-pharmacolo gical pain management strategies Substance Use Assessment: Patient reports occasional alcohol use and marijuana use, sometimes daily for back pain. Plan: - Discussed potential risks of substance use, especially in combination with prescribed medications - Encourage moderation and safe use practices Tachycardia Assessment: Patient reports occasional episodes of tachycardia. Plan: - Monitor cardiac symptoms - Advise patient to report any worsening or increased frequency of tachycardia episodes the note is transcribed using speech recognition software. It is a reflection of a visit with the patient. It might have some inaccuracy, including medication names and transcribing errors, though efforts have been made to correct them. Plan Of Treatment Next Appt Details Provider Name:Tian tapia, 12/02/2024 01:15:00 PM, [id number] [facility] [address], [facility] [address], [place], [address], Insurance Providers Payer Name Payer Address Payer Phone Subscriber Number Group Number Insured Name Patient Relationship to Insured Coverage Start Date Coverage End Date [place] [address] [place] [address] [id number] JANELLE ZHENG Self - patient is the insured [place] [employer] [place] Medicare Supplement [address] [place] [phone] [id number] PLAN G JANELLE ZHENG Self - patient is the insured Medical (General) History Medical History History ICD Code Problems: Attention deficit hyperactivit y disorder, combined type Chronic post-traumatic stress disorder Generalized anxiety disorder 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
--- OUTSIDE RECORDS SUMMARY | 2024-10-16 10:57 | XMS_ITS | Encounter Summary ---
Author Organization [facility] Address [address] [place] [address] Care Team Providers Care Lunchroom Aide Name Role Phone Marcelle Hernandez MD Primary Care Provider [phone] Encounter Details Date Type Department Care Team (Late st Contact Info) Description 09/17/2019 Telephone [facility] Pediatrics - Diabetes [address] [id number] Camron Brandon, [employer] [address] [place] [address] Social History Tobacco Use Types Packs/Day Years Used Date Smoking Tobacco: Never Smokeless Tobacco: Never Alcohol Use Standard Drinks/Week Comments No 0 (1 standard drink = 0.6 oz pur e alcohol) Comments No Sex and Gender Information Value Date Recorded Sex Assigned at Not on file Legal Sex Female 5:45 AM 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 Answer Entry Date Author No 02/03/2016 9:40 AM CDT Esperanza Gordon RN documented in this encounter Miscellaneous Notes * Telephone Encounter - Angela Perry RN - 09/17/2019 4:48 PM CDT I spoke with mom today to schedule them a telehealth follow up appointment with Dr. Madsen. However, mom stated they do not have a device with camera capabilities. Per Dr. Madsen's recommendation they are to begin checking blood sugars before breakfast (fasting) and before bed and call back in 1 week to review and see if medication is needed. Mom verbalized understanding. documented in this encounter Plan of Treatment Not on file documented as of this encounter Visit Diagnoses Not on filedocumented in this encounter Additional Health Concerns Infection Onset Date Last Indicated Resolved Time COVID-19 Under Investigation 12/22/2019 12/23/2019 12/24/2019 2:58 PM CDT documented as of this encounter Care Teams Lunchroom Aide Relationship Specialty Start Date End Date Marcelle Hernandez MD [address] [facility] [address] [place] [address] PCP - General Pediatrics 12/27/15 09/30/24 documented as of this encounter
--- OUTSIDE RECORDS SUMMARY | 2024-10-16 10:58 | XMS_ITS | Referral Summary ---
Author Organization [facility] Address [address] [place] [address] Care Team Providers Care Dip Stand Loader Name Role Phone Sukhwinder Madden MD Primary Care Provide r Allergies Active Allergy Reactions Criticality Noted Date Comments Azithromycin Urticaria Medium 08/18/2019 Black Pepper Anaphylaxis High 05/31/2023 Chlorpheniramine Itching Low 12/27/2015 chlortimatime Dayquil Sinus Pressure/Pain Itching Low 05/25/20 22 Nyquil Itching Low 07/26/2020 Medications albuterol HFA (PROVENTIL HFA,VENTOLIN HFA,PROAIR HFA) 90 mcg/actuation inhaler albuterol sulfate HFA 90 mcg/actuation aerosol inhaler 6 Active dexmethylphenid ate (FOCALIN) 10 mg tablet TK PO 1 T QAM AND 1 T AT NOON 6 Active diphenhydrAMINE 25 mg capsule Take 1 tablet/capsule (25 mg total) by mouth every 4 (four) hours as needed Active esomeprazole DR (NexIUM) 20 mg capsule Take 1 capsule (20 mg total) by mouth daily before breakfast Active fenofibrate (TRIGLIDE) 160 mg tablet fenofibrate 160 mg tablet Active fluticasone propionate (FLONASE) 50 mcg/actuation nasal spray fluticasone propionate 50 mcg/actuation nasal spray,suspension Active ivabradine (Corlanor) 5 mg tablet every 12 hours Activ e Ashlyna 0.15 mg-30 mcg (84)/10 mcg (7) tablets,dose pack,3 month Take 1 tablet by mouth daily Active lamoTRIgine (LaMICtal) 100 mg tablet Take 1 tablet (100 mg total) by mouth 2 (two) times a day Active lansoprazole (PREVACID) 30 mg capsule Take 1 capsule (30 mg total) by mouth 0 Active omeprazole (PriLOSEC) 20 mg capsule TAKE 1 CAPSULE BY MOUTH ONCE DAILY IN THE MORNING Active BD Ultra-Fine Short Pen Needle 31 gauge x 5/16 needle USE 1 ONCE DAILY 3 Active venlafaxine XR (EFFEXOR-XR) 75 mg 24 hr capsule Take 1 capsule (75 mg total) by mouth daily Active lancets-blood glucose strips (Pogo Automatic Test Cartridge) 30 gauge combo pack 30 each manager video before breakfast 3 each 3 3 Active Pogo Automatic Blood Gluc Sys misc Use for BG monitoring 1 each 3 Active Farxiga 10 mg tabletIndicatio ns:Type 2 diabetes mellitus with hyperglycemia, with long-term current use of insulin (HCC) Take 1 tablet by mouth once daily 90 tablet 4 Active metFORMIN XR (GLUCOPHAGE XR) 500 mg 24 hr tabletIndicatio ns:Type 2 diabetes mellitus with hyperglycemia, with long-term current use of insulin (HCC) Take 1 tablet by mouth once daily with breakfast 90 tablet 4 Active Active Problems Problem Noted Date Diagnosed Date Hyperlipidemia associated with type 2 diabetes amelie wetzel 01/21/2024 Type 2 diabetes mellitus 08/04/2021 Assessment & Plan (05/31/2023 4:15 PM PHYSICIAN LIAISON): Hba1c was Lab Results Component Value Date HGBA1C 7.5 05/31/2023 today, indicating suboptimal DM control Goal Hba1c under 7 and blood glucose level in the 120-160 range was explained Low carb diet and daily aerobic and /or resistant exercise were advised Prevention and treatment of hyypoglcyemia were discussed with the patient Blood glucose monitoring : Once a day. Prescription for meter and test strips was sent Adjustment to medications: I advised the patient to restart metformin 500 mg just once a day to see if she can tolerate without diarrhea Increase Victoza to 1.8 mg nightly Continue Farxiga Generalized anxiety disorder 08/04/2021 Mixed hyperlipidemia 08/04/2021 Sinus tachycardia 08/09/2020 ADHD 07/26/2020 Chest pain 07/26/2020 Scoliosis 07/26/2020 Palpitations 07/26/2020 Gastric ulcer 07/26/2020 Gastroesophageal reflux disease 07/26/2020 Dizziness 07/26/2020 Elevated hemoglobin A1c 06/19/2019 Overview (05/25/2022): A1c consistent with diabetes mellitus, not clearly determined as type 1 or type 2. C-peptide is normal, LUIS MANUEL negative, IA-2 negative. Currently treating with dietary changes. Social History Tobacco Use Types Packs/Day Years Used Date Smoking Tobacco: Some Days Cigarettes Smokeless Tobacco: Never Tobacco Cessation:Ready to Q uit: Not Asked Comments:Marijuana some days for pain Comments No Sex and Gender Information Value Date Recorded Sex Assigned at Not on file Legal Sex Female 12:00 PM PHYSICIAN LIAISON Gender Identity Not on file Sexual Orientation Not on file Last Filed Vital Signs Vital Sign Reading Time Taken Comments Blood Pressure 120/70 05/31/2023 2:17 PM PHYSICIAN LIAISON Pulse 105 05/31/2023 2:17 PM PHYSICIAN LIAISON Temperature - - Respiratory Rate 18 05/31/2023 2:17 PM PHYSICIAN LIAISON Oxygen Saturation - - Inhaled Oxygen Concentration - - Weight 80.7 kg (178 lb) 05/31/2023 2:17 PM PHYSICIAN LIAISON Height 166.4 cm (5' 5.5 ) 05/31/2023 2:17 PM PHYSICIAN LIAISON Body Mass Index 29.17 05/31/2023 2:17 PM PHYSICIAN LIAISON Plan of Treatment Not on file Procedures Procedure Name Priority Date/Time Associated Diagnosis Comments POCT HEMOGLOBIN A1C Routine 05/31/2023 2 :17 PM PHYSICIAN LIAISON Type 2 diabetes mellitus with hyperglycemia, with long-term current use of insulin (HCC) from Last 3 Months or Most Recently Relevant to Health Maintenance Results * (ABNORMAL) POCT hemoglobin A1c (05/31/2023 2:17 PM PHYSICIAN LIAISON) Hemoglobin A1C, POC 7.5 % Blood spot 05/31/2023 2:17 PM PHYSICIAN LIAISON Marco Antonio Geller MD POINT OF CARE TEST ORDERABLES Fi nal Result from Last 3 Months or Most Recently Relevant to Health Maintenance Insurance MEDICARE [facility] MEDICARE [employer] [place] [employer] [place] Care Teams Dip Stand Loader Relationship Specialty Start Date End Date Sukhwinder Madden MD [address] [place] [address] PCP - General Internal Medicine 04/27/22
--- OUTSIDE RECORDS SUMMARY | 2024-10-16 10:58 | XMS_ITS ---
[facility] Address [address] [place] [address] Care Team Providers Care Graduate Internship Name Role Phone Cici Fuller Primary Care Provider Allergies Allergen (clinical drug ingredient) Drug/Non Drug Allergy documented on EMR Reaction Allergy Type Onset Date Status Z PACK (uncoded) Unknown Allergy Act jae Pepper PEPPER (uncoded) Unknown Allergy Act jae REASON FOR VISIT 1 month Follow-up text Medications Medication SIG (Take, Route, Frequency, Duration) [...] with meals for 90 days 06/09/2024 Active Vital Signs Blood pressure systolic 110 mm Hg 06/09/20 24 Blood pressure diastolic 70 mm Hg 024 Heart Rate 82 /min 06/09/2024 Height 66 in 06/09/2024 Weight 180 lbs 06/09/2024 BMI 29.05 kg/m2 06/09/2024 Encounters Encounter Location Date Provider Diagnosis [facility] - Cici Fuller [id number] [place] [address] 06/09/2024 Cici Fuller Type 2 diabetes elle itus with hyperglycemia E11.65 ; Obesity, unspecified E66.9 ; Irregular menstruation, unspecified N92.6 ; Vitamin D deficiency, unspecified E55.9 and Dietary counseling and surveillance Z71.3 Assessments Encounter Date Diagnosis (ICD Code) Assessment Notes Treatment Notes Treatment Clinical Notes Section Notes 06/09/2024 Type 2 diabetes mellitus with hyperglycemia (ICD-10 - E11.65) 06/09/2024 Obesity, unspecified (ICD-10 - E66.9) 06/09/2024 Irregular menstruation, unspecified (ICD-10 - N92.6) 06/09/2024 Vitamin D deficiency, unspecified (ICD-10 - E55.9) 06/09/2024 Dietary counseling and surveillance (ICD-10 - Z71.3) 06/09/2024 Other Assessment and Plan: 1. Type [...] D deficiency- Low vitamin D levelsPlan:- Recommend xjmc-ruu-fnhvskz vitamin D supplement once daily 6. Iron levels- Iron levels are within normal rangePlan:- No intervention needed at this time Follow-up:- Schedule a follow-up appointment in 6-8 weeks to assess the patient's response to Victoza and review lab results- Address any concerns or problems during the follow-up visit- Happy idays Spent 15 minutes preventative counseling patient on [...] examination and/or evaluation, counseling and educating the patient/family/care management specialist, ordering medications, tests, or procedures, referring and communicating with other health gericare aide, documenting clinical information in the electronic or other health record, independently interpreting results and communicating results to the patient/family/care management specialist and care coordinating patient plan. Patient alert [...] all questions were answered. Plan Of Treatment Medication Medication Name Sig Start Date Stop Date Notes Liraglutide 18 MG/3ML inject 0.6 mg once daily x 1 week then increase to 1.2 mg once daily thereafter Subcutaneous once daily for 90 days 06/09/2024 dexAMETHasone 1 MG 1 tablet Orally at 1 0 pm night before 8 am cortisol for 1 days 06/09/2024 metFORMIN HCl ER 500 MG 1 tablet Orally twice daily with meals for 90 days 06/09/2024 Treatment Notes Assessment Notes Other Assessment and Plan: 1. Type 2 [...] on rosuvastatin 40 mg- Cholesterol levels are well-controlledPlan:- Continue rosuvastatin 40 mg- Encourage a heart-healthy [...] D deficiency- Low vitamin D levelsPlan:- Recommend eyqk-ijj-pdiwwwu vitamin D supplement once daily 6. Iron levels- Iron levels are within normal rangePlan:- No intervention needed at this time Follow-up:- Schedule a follow-up appointment in 6-8 weeks to assess the patient's response to Victoza and review lab results- Address any concerns or problems during the follow-up visit- holidays Spent 15 minutes preventative counseling patient on [...] examination and/or evaluation, counseling and educating the patient/family/caregiver, ordering medications, tests, or procedures, referring and communicating with other health gericare aide, documenting clinical information in the electronic or other health record, independently interpreting results and communicating results to the patient/family/caregiver and care coordinating patient plan. Patient alert [...] were discussed and all questions were answered. Next Appt Details Follow Up: 2 Months, Reason: labwork Progress Notes * Kermit MACKOB:2000 (23 yo F)Acc No.[id number]:06/09/2024 Progress Notes Patient: Violet KELLY Provider: Zhen Fuller MD :2000 A ge:23 Y S ex:Female Date:06/09/2024 Address:[address] [place] [address] [id number] Subjective: * Chief Complaints: * 1 . 1 month Follow-up text. * HPI: I nterval Hx: 23 yo female calls in today to initiate telehealth visit to discuss progress and management of poorly controlled type 2 DM (A1C of 8.5%), irregular cycles and weight management. Verbal consent provided by patient to proceed with this visit. This visit was performed in office via provider and patient located in primary care office with real time audio with video. Violet, a patient with type 2 diabetes and an A1c of 8.5%, is currently taking metformin 500 mg twice daily and using a Dexcom for glucose monitoring. Previous trials of Mounjaro and Ozempic caused adverse effects, but Victoza was well-tolerated. She also has elevated cholesterol managed with rosuvastatin 40 mg and is taking Corlanor 5 mg twice daily. 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 The patient reports poor sleep quality and has low vitamin D levels. A follow-up is scheduled in 6-8 weeks to assess the response to Victoza and review lab results. Patient has diabetes with an A1c of 8.5%. Currently taking metformin 500 mg twice daily. Previous trials of Mounjaro and Ozempic caused adverse effects. Patient uses a Dexcom for glucose monitoring. Farxiga trial resulted in diarrhea and vomiting. Patient reports being a night owl with poor sleep quality. Low-dose Mounjaro was better tolerated. Victoza did not cause adverse effects. Last recorded weight was 178 lbs. Patient has elevated cholesterol, managed with rosuvastatin 40 mg. Also taking Corlanor 5 mg twice daily. 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 Dexamethasone suppression test ordered but not yet completed. Medical History - Type 2 Diabetes Current and Past Medications and Supplements - Metformin 500mg twice daily - Rosuvastatin 40mg - Corlanor 5mg twice daily - Dexcom (continuous glucose monitor) Social History - Sleep: Patient reports being a night owl and not sleeping well - Diet: Advised to eat fruits, vegetables, and avoid starches; patient has a sweet tooth Review of Systems - Endocrine: Blurred vision (possible) - Neurological: Headaches (possible) - Gastrointestinal: Diarrhea, vomiting (with Farxiga) - Constitutional: Poor sleep. * ROS: N UTRITION: greater than body requirmemts y es. L ess than body requirements y es. a ppropriate / adequate y es, y es. C ONSTITUTIONAL: no w eight gain. n o l oss of appetite. n o?fever. n o w eakness. n o w eight loss. n o n ight sweats. n o n ausea. n o v isual changes. n o c hange in sleep patterns. h +p reviewed y es, R OS form reviewed with patient see scan for detail. n o c hange in activity capacity.? D ERMATOLOGY: no r danilo. n o c hange in color of moles. n o?lumps. n o d ry or sensitive skin. n o h cristal. n o o nohemi skin. n o?acne. n o m oles-irregular. n o m oles-change/new. n o b oils. n o dandruff. n o e xcessive body odor. n o p soriasis. n o f ungal infections. n o n ail problems. n o r edness/inflammation. n o a thlete's foot. n o s kin cancer. n o e czema. E NDOCRINOLOGY: no f atigue. n o e xcessive sweating. n o e xcessive thirst. n o e xcessive urination. n o w eight loss. n o s leep disturbance. n o c old intolerance. n o h eat intolerence. n o t hyroid disease. n o i ncreased loss of hair. n o h x of borderline diabetes. n o d iabetes. n o a bdormal body hair. n o r heumatism. n o c hanges in skin texture.? N EUROLOGY: no h eadache. n o t ingling numbness. n o s eizures. n o i nsomnia. n o m meng loss. n o d izziness. n o g ait abnormality. n o c hange in sensation anywhere on body. n o l ocalized weakness or numbness. n o b lackouts or near blackouts. n o m igraine. n o t remors.?no f ainting spells. n o h ead injury. n o s troke. O PTHALMOLOGY: no d iminished vision. n o e ye irritation. n o?drainage from eyes. n o b lurring of vision. n o s easonal eye sx. n o?dander related eye sx. n o l oss of vision. n o c ataracts. n o g lasses/contacts. n o g laucoma. n o d etached retina. n o m acular degeneration.?no e ye redness. R ESPIRATORY: no s hortness of breath. n o c hest pain. n o?wheezing. n o a sthma. n o b reathlessness when lying flat. n o p rolonged cough. n o f requent infections (bronchitis). n o e mphysema. n o c hest congestion. n o s leep apnea. A LLERGY: no r unny nose. n o s cratchy throat. n o i tchy eyes. n o e ar fullness. n o s inus congestion. n o s tuffy nose. n o w atery eyes. n o s easonal allergies. n o h ay fever. n o a llergy.?no p olyps. n o s neezing. H EMATOLOGY/LYMPH: no s wollen glands. n o f atigue. n o l oss of appetite. n o e asy bruising. n o e asy bleeding. n o a nemia. ? U ROLOGY: no d ifficulty urinating. n o b lood in urine. n o u rinary urgency. n o f requent urination. n o u rinary incontinence. n o v oiding dysfunction. n o v ulvodynia. n o d ysparaunia. n o r ecurrent UTI. n o w eak flow. n o d ribbling after urination. n o f requent bladder infections. n o k idney stone. n o k idney disease. n o u rine hesitancy.?no p ainful urination. E NT: no c old. n o c ough. n o c oughing blood.?no n ose bleed. n o h earing loss. n o c hange in voice. n o s ore throat. n o r inging in ears. n o s noring. n o e ar pain. n o r unny nose. n o w atery eyes. n o s inus infection. n o e ar infection. n o facial pain. n o h oarseness. n o g oiter. n o g um problems. n o?postnasal drip. n o f requent nosebleeds. C ARDIOLOGY: no c hest pain. n o p alpitations. n o l eg swelling. n o d izziness. n o s hortness of breath. n o v aricose veins.?no l eg cramps. n o c old hands or feet. n o h igh blood pressure. n o ankle swelling. n o c ardiac catheterization. n o h eart attacks. n o a ngina. n o m urmurs. n o l ow blood pressure. n o l eg pain that resolves w/rest. n o p urple fingers or lips. n o i rregular heart rate. n o c ongenital heart defects. n o d izziness when standing up quickly. n o a wakening at night short of breath. G ASTROENTEROLOGY: no n ausea. n o h eartburn. n o s tool incontinence. n o r eflux. n o a bdominal pain. n o i ndigestion. n o h emorrhoids. n o h iatal hernia. n o u lcers. n o a nal fissures. n o?hepatitis. n o g allstones. n o r ed blood after bowel movements. n o v omiting. n o b loating/belching. n o d ifficulty swallowing. n o d iarrhea.?no c onstipation. n o c hange in bowel habits. n o b lood in stool. ? M USCULOSKELETAL: no j oint swelling. n o j oint pain. n o l eg cramps. n o j oint stiffness. n o a rthritis. n o b ack pain. n o?muscle aches. n o m orning stiffness. n o t endinitis. n o n courtney pain. no b ursitis. n o b one marrow biopsy. n o g out. a ctivity intolerance?weakness. n o f racture. P SYCHOLOGY: no h igh stress level. n o d epression. n o?sleep disturbances. n o r shakira sx worse with stress. n o s uicidal ideation. n o e ating disorder. n o m ental or physical abuse. n o a nxiety. n o h eadaches. d isease state y es. F EMALE REPRODUCTIVE: no h eavy periods. n o d ysparaunia. n o s exually active. n o p remenstrual syndrome. n o d ysmenorrhea. n o i nfertility. n o f requent yeast infections. n o v aginal itching. n o i ntermenstrual bleeding. n o p ost coital bleeding. n o p ostmenopausal bleeding. n o p elvic pain. n o m enstral cycle. n o v aginal discharge. n o v aginal dryness. n o o varian cysts. n o f ibroids. n o d ischarge from breast. n o abn. bleeding between cycles. n o p ostmenopausal symptoms. n o l oss of sexual interest. n o p ainful sexual intercourse. n o e ndometriosis. n o v aginal warts. n o a bnormal pap. n o i rregular periods. n o a bnormal vaginal discharge. n o h ot flashes. * Medical History: T ACHICARDIA, DIABETIES. * Medications: T aking metFORMIN HCl ER 500 MG Tablet Extended Release 24 Hour 1 tablet with evening meal Orally Once a day , Notes to Pharmacist: twice daily, Taking Rosuvastatin Calcium , Notes to Pharmacist: 40 mg once daily, Taking lamoTRIgine , Taking Corlanor(Ivabradine HCl) 5 MG Tablet 1 tablet with meals Orally Twice a day , Taking dexAMETHasone 1 MG Tablet 1 tablet Orally at 10 pm night before 8 am cortisol * Allergies: P EPPER, Z PACK. Objective: * Vitals: H R:82, BP:110/70, Ht:66, Wt:180, BMI: 29.05. * P ast Orders: L ab:HEMOGLOBIN A1c (Order Date - 05/13/2024) (Collection Date & Time - 05/13/2024 12:25 PM) Value Reference Range HEMOGLOBIN A1c 8.5 H <5.7 - % of total Hg b L ab:CBC (INCLUDES DIFF/PLT) (Order Date - 05/13/2024) (Collection Date & Time - 05/13/2024 12:25 PM) Value Reference Range WHITE BLOOD CELL COUNT 11.8 H 3.8-10.8 - Thousa nd/uL RED BLOOD CELL COUNT 4.77 3.80-5.10 - Million /uL HEMOGLOBIN 13.7 11.7-15.5 - g/dL HEMATOCRIT 42.5 35.0-45.0 - % MCV 89.1 80.0-100.0 - fL MCH 28.7 27.0-33.0 - pg MCHC 32.2 32.0-36.0 - g/dL RDW 12.1 11.0-15.0 - % PLATELET COUNT 311 140-400 - Thousand/u L NEUTROPHILS 61.5 - % ABSOLUTE NEUTROPHILS 7257 6712-9792 - cells/u L LYMPHOCYTES 29.1 - % ABSOLUTE LYMPHOCYTES 3434 850-3900 - cells/uL MONOCYTES 8.2 - % ABSOLUTE MONOCYTES 968 H 200-950 - cells/uL EOSINOPHILS 0.6 - % ABSOLUTE EOSINOPHILS 71 15-500 - cells/uL BASOPHILS 0.6 - % ABSOLUTE BASOPHILS 71 0-200 - cells/uL MPV 10.6 7.5-12.5 - fL L ab:COMPREHENSIVE METABOLIC PANEL (Order Date - 05/13/2024) (Collection Date & Time - 05/13/2024 12:25 PM) Value Reference Range GLUCOSE 144 H 65-99 - mg/dL UREA NITROGEN (BUN) 12 7-25 - mg/dL CREATININE 0.55 0.50-0.96 - mg/dL BUN/CREATININE RATIO SEE NOTE: 6-22 - (calc) SODIUM 138 135-146 - mmol/L POTASSIUM 4.1 3.5-5.3 - mmol/L CHLORIDE 103 98-110 - mmol/L CARBON DIOXIDE 25 20-32 - mmol/L CALCIUM 9.3 8.6-10.2 - mg/dL PROTEIN, TOTAL 6.6 6.1-8.1 - g/dL ALBUMIN 4.7 3.6-5.1 - g/dL GLOBULIN 1.9 1.9-3.7 - g/dL (calc ) ALBUMIN/GLOBULIN RATIO 2.5 1.0-2.5 - (calc) BILIRUBIN, TOTAL 0.5 0.2-1.2 - mg/dL ALKALINE PHOSPHATASE 92 31-125 - U/L AST 24 10-30 - U/L ALT 36 H 6-29 - U/L EGFR 133 > OR = 60 - mL/min/1.73m2 L ab:LIPID PANEL (Order Date - 05/13/2024) (Collection Date & Time - 05/13/2024 12:25 PM) Value Reference Range TRIGLYCERIDES 115 <150 - mg/dL CHOLESTEROL, TOTAL 118 <200 - mg/dL HDL CHOLESTEROL 42 L > OR = 50 - mg/dL LDL-CHOLESTEROL 56 - mg/dL (calc) CHOL/HDLC RATIO 2.8 <5.0 - (calc) NON-HDL CHOLESTEROL 76 <130 - mg/dL (calc) L ab:IRON AND TOTAL IRON BINDING CAPACITY (Order Date - 05/13/2024) (Collection Date & Time - 05/13/2024 12:25 PM) Value Reference Range IRON, TOTAL 110 40-190 - mcg/dL IRON BINDING CAPACITY 401 250-450 - mcg/dL ( calc) % SATURATION 27 16-45 - % (calc) L ab:DHEA SULFATE (Order Date - 05/13/2024) (Collection Date & Time - 05/13/2024 12:25 PM) Value Reference Range DHEA SULFATE 48 14-349 - mcg/dL L ab:VITAMIN D, 25-HYDROXY, LC/MS/MS (Order Date 05/13/2024) (Collection Date & Time - 05/13/2024 12:25 PM) Value Reference Range VITAMIN D, 25-OH, TOTAL 30 30-100 - ng/mL L ab:MAGNESIUM (Order Date - 05/13/2024) (Collection Date & Time - 05/13/2024 12:25 PM) Value Reference Range MAGNESIUM 2.1 1.5-2.5 - mg/dL L ab:MICROALBUMIN, RANDOM URINE (W/CREATININE) (Order Date - 05/13/2024) (Collection Date & Time - 05/13/2024 12:25 PM) Value Reference Range CREATININE, RANDOM URINE 152 20-275 - mg/dL MICROALBUMIN 0.9 See Note: - mg/dL MICROALBUMIN/CREATININE$RATIO, RANDOM URINE 6 <30 - mg/g creat L ab:T3, FREE (Order Date - 05/13/2024) (Collection Date & Time - 05/13/2024 12:25 PM) Value Reference Range T3, FREE 3.3 2.3-4.2 - pg/mL L ab:LH (Order Date 05/13/2024) (Collection Date & Time - 05/13/2024 12:25 PM) Value Reference Range LH 11.6 - mIU/mL L ab:T4, FREE (Order Date - 05/13/2024) (Collection Date & Time - 05/13/2024 12:25 PM) Value Reference Range T4, FREE 1.2 0.8-1.8 - ng/dL L ab:PROGESTERONE (Order Date - 05/13/2024) (Collection Date & Time - 05/13/2024 12:25 PM) Value Reference Range PROGESTERONE 0.9 - ng/mL L ab:THYROID PEROXIDASE ANTIBODIES (Order Date - 05/13/2024) (Collection Date & Time - 05/13/2024 12:25 PM) Value Reference Range THYROID PEROXIDASE ANTIBODIES <1 <9 - IU/mL L ab:VITAMIN B12/FOLATE, SERUM PANEL (Order Date - 05/13/2024) (Collection Date & Time - 05/13/2024 12:25 PM) Value Reference Range FOLATE, SERUM >24.0 - ng/mL VITAMIN B12 450 509-3487 - pg/mL L ab:ACTH, PLASMA (Order Date - 05/13/2024) (Collection Date & Time - 05/13/2024 12:25 PM) Value Reference Range ACTH, PLASMA 11 6-50 - pg/mL L ab:CORTISOL, TOTAL (Order Date - 05/13/2024) (Collection Date & Time - 05/13/2024 12:25 PM) Value Reference Range CORTISOL, TOTAL 7.8 - mcg/dL L ab:INSULIN (Order Date - 05/13/2024) (Collection Date & Time - 05/13/2024 12:25 PM) Value Reference Range INSULIN 9.3 - uIU/mL L ab:TESTOSTERONE, FREE (DIALYSIS) AND TOTAL,MS (Order Date 05/13/2024) (Collection Date & Time - 05/13/2024 12:25 PM) Value Reference Range TESTOSTERONE, TOTAL, MS 19 2-45 - ng/dL TESTOSTERONE, FREE 4.5 0.1-6.4 - pg/mL L ab:TSH (Order Date - 05/13/2024) (Collection Date & Time - 05/13/2024 12:25 PM) Value Reference Range TSH 1.39 - mIU/L L ab:ESTRADIOL (Order Date 05/13/2024) (Collection Date & Time - 05/13/2024 12:25 PM) Value Reference Range ESTRADIOL 205 - pg/mL L ab:FSH (Order Date - 05/13/2024) (Collection Date & Time - 05/13/2024 12:25 PM) Value Reference Range FSH 5.3 - mIU/mL * Examination: G eneral Examination: General n ormal, NAD, well nourished and hydrated, pleasant. Neck, thyroid : s upple. Assessment: * Assessment: 1. T ype 2 diabetes mellitus with hyperglycemia - E11.65 (Primary) 2 . O besity, unspecified - E66.9 3 . I rregular menstruation, unspecified - N92.6 ? 4 . V itamin D deficiency, unspecified - E55.9 5 . D ietary counseling and surveillance - Z71.3 Plan: * Treatment: 2. O besity, unspecified Start dexAMETHasone Tablet, 1 MG, 1 tablet, Orally, at 10 pm night before 8 am cortisol, 1 days, 1, Refills 1. 3. O thers Notes:Assessment and Plan: 1. Type 2 Diabetes Mellitus- [...] on rosuvastatin 40 mg- Cholesterol levels are well-controlledPlan:- Continue rosuvastatin 40 mg- Encourage a heart-healthy [...] D deficiency- Low vitamin D levelsPlan:- Recommend ufou-slg-shgnkqs vitamin D supplement once daily 6. Iron [...] examination and/or evaluation, counseling and educating the patient/family/caregiver, ordering medications, tests, or procedures, referring and communicating with other health gericare aide, documenting clinical information in the electronic or other health record, independently interpreting results and communicating results to the patient/family/caregiver and care coordinating patient plan. Patient alert [...] were discussed and all questions were answered. ? * Procedure Codes: 9 9401 P/M AUGER MACHINE OFFBEARER, INDIV 15 MIN * Follow Up: 2 Months (Reason: labwork) * Billing Information: * Visit Code: 29292 Office Visit, Est Pt., Level 4. Modifiers: 95 * Procedure Codes: 10271 P/M AUGER MACHINE OFFBEARER, INDIV 15 MIN. * MAN Sign off status: Completed true * Provider: Zhen Fuller MD Date: 08/10/2023 Generated for Printi ng/Faxing/eTransmitting on: 0 10/16/2024 10:58 AM CDT History and Physical Notes * HPI (History of Present Illness) Category Sub-Category Detail Notes Category Not es Interval Hx 23 yo female calls in today to initiate telehealth visit to discuss progress and management of poorly controlled type 2 DM (A1C of 8.5%), irregular cycles and weight management. Verbal consent provided by patient to proceed with this visit. This visit was performed in office via provider and patient located in primary care office with real time audio with video. Violet, a patient with type 2 diabetes and an A1c of 8.5%, is currently taking metformin 500 mg twice daily and using a Dexcom for glucose monitoring. Previous trials of Mounjaro and Ozempic caused adverse effects, but Victoza was well-tolerated. She also has elevated cholesterol managed with rosuvastatin 40 mg and is taking Corlanor 5 mg twice daily. 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 The patient reports poor sleep quality and has low vitamin D levels. A follow-up is scheduled in 6-8 weeks to assess the response to Victoza and review lab results. Patient has diabetes with an A1c of 8.5%. Currently taking metformin 500 mg twice daily. Previous trials of Mounjaro and Ozempic caused adverse effects. Patient uses a Dexcom for glucose monitoring. Farxiga trial resulted in diarrhea and vomiting. Patient reports being a night owl with poor sleep quality. Low-dose Mounjaro was better tolerated. Victoza did not cause adverse effects. Last recorded weight was 178 lbs. Patient has elevated cholesterol, managed with rosuvastatin 40 mg. Also taking Corlanor 5 mg twice daily. 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 Dexamethasone suppression test ordered but not yet completed. Medical History - Type 2 Diabetes Current and Past Medications and Supplements - Metformin 500mg twice daily - Rosuvastatin 40mg - Corlanor 5mg twice daily - Dexcom (continuous glucose monitor) Social History - Sleep: Patient reports being a night owl and not sleeping well - Diet: Advised to eat fruits, vegetables, and avoid starches; patient has a sweet tooth Review of Systems - Endocrine: Blurred vision (possible) - Neurological: Headaches (possible) - Gastrointestinal: Diarrhea, vomiting (with Farxiga) - Constitutional: Poor sleep Examination Category Sub-Category Detail Notes Category Not es General Examination Neck, thyroid : supple General normal, NAD, well no urished and hydrated, pleasant
--- OUTSIDE RECORDS SUMMARY | 2024-10-16 10:58 | XMS_ITS | Continuity of Care Document ---
Author Organization [facility] Address [address] [place] [address] Phone Care Team Providers Care Food Service Assistant Name Role Phone Allred OD, Miguel Angel Unavailable Unavailable Procedures Procedure Date Eye Exam & Treatment Refraction SV Poly Carb Sph +/- 7.12 To +/- 20 D Au Vision Svcs Frames Purchases Medical Tax Advance Directives Directive Yes / No Effective Date File Name No Information Encounters Encounter Description Practice Location Reason(s) For Visit Diagnoses Date Provider Providers Copied on Encounter [facility], [address] [place] [address] [address], [place], [place], [id number], [place] tel:[phone] [facility] No Information 0-201 0 Allred OD Miguel Angel. [address] [place] , [address], [place], [address], [place]. tel:[phone] [facility], [address] [place] [address] [address], [place], [place], [id number], [place] tel:[phone] [facility] No Information 0201 0 [facility] . [address], [address], [place], [place], [id number], [place]. tel:[phone] Referring Provider: Miguel Angel Allred OD Cami, [address], [place], [address]. tel:[phone] payan Provider: Ck Read, [address], [place], [address]. tel:[phone] Family History Family Member Type Diagnosis Age At Onset No Information Payers Payer name Insurance type Covered alliance party ID Authorclair padgett(s) Medicaid [facility] [id number] Social History Type Description Quantity Date Captured Comments Sex Female Smoking Status No Information Chief Complaint And Reason For Visit No Information Reason For Referral Reason For Referral No Information History Of Present Illness Encounter Date Complaint History Of Prese nt Illness No Information Functional Status Date Functional Assessmen t No Information Instructions Date Instruction Additional Infor mation No Information Assessments Type Assessment Date No Information Patient Care Teams Name Effective Dates (start - stop) Status Members No Information
--- OUTSIDE RECORDS SUMMARY | 2024-10-16 10:58 | XMS_ITS | Data Portability ---
Author Organization [facility], Main Office Address [address] [place] [address] Care Team Providers Care Men'S Designer Name Role Phone RALF MARI Primary Care Provider DAGMARRALF VILLA Referring Provider [phone] GRAY ZENG Fpga Engineer SHALONDA PHILIP Refrigerated National Truck Driver GIO FRIED Insole Filler Assessment Encounter Date Assessment Date Assessment LastModified by Organization Details LastModified Time 12/26/2023 12/26/2023 Assessment: Cough Dyspnea Plan: The following were reviewed and explained to the patient: primary care/referral note Chest 1 view 06/28/22 no acute disease Chest 2 views 12/07/23 no acute disease 2-D echocardiogram 10/26/23 EF 65% Cough/Dyspnea workup will be done as follows: Respiratory allergen panel for [facility] Serum IgE Serum total IgG, IgG1, IgG2, IgG3, IgG4 Obgdl-0-agblixgeti n phenotype and level TB stimulated gamma interferon B-type natriuretic peptide (BNP) Eosinophil count Complete pulmonary function testing (PFT) Advised to continue not to smoke. Continue albuterol HFA as needed. The patient does not know how to accurately administer the inhaler. Today, the patient was shown how to take this medication. The proper technique for delivering this medication was instructed. The patient expressed a clear understanding and demonstrated back how to use this medication. Without the proper technique, the patient will not reap the benefits of the treatment as the contents of the inhaler will not reach the lower airways as intended to be. Adherence to therapy is advocated. Nonadherence may lead to treatment failure, further progression of the condition, and other complications. Hospitals admissions are often the result of individuals not taking prescription medications accurately. Alternatively, greater adherence to medication regimens have shown to lower rates of hospitalization and decrease total medical costs in patients with chronic medical conditions. Advocated influenza vaccination annually and pneumonia vaccination CASSANDRA. Advocated weight loss through diet and exercise. Patient's ideal body weight according to height and gender is up to 130 lbs. Encouraged patient to adjust caloric intake to maintain/achieve ideal body weight, emphasizing on fruits, vegetables, whole grains, and fat-free or low-fat products. These include lean meats, poultry, fish, beans, eggs, and nuts and foods that are low in saturated fats, trans-fats, cholesterol, salt (sodium), and glycemic index. Stressed the importance of regular exercise up to the patient's capacity limits. In this case, we recommend 20 min daily walking, 2 days a week of resistance training. Patient to monitor BP daily and bring records to PCP for further management. Follow-up: 1 week after PFT [email or web address] Not available 12/26/2023 12:54:56 01/15/2024 01/15/2024 09/28/2023: A1C 7.1 Gluc 153 TG 168, LDL 109 45 minutes spent with her and her mother discussed all her medications and her diagnosis Not available 01/15/2024 12:44:07 02/21/2024 02/21/2024 09/28/2023: A1C 7.1 Gluc 153 TG 168, LDL 109 01/21/2024: A1C 7.1 Na 136, Gluc 130, ALT 37 TG 173 02/03/2024: [facility] Gluc 164 WBC 15.7 45 minutes spent with her and her mother discussed all her medications and her diagnosis Not available 02/21/2024 16:36:25 04/23/2024 04/23/2024 09/28/2023: A1C 7.1 Gluc 153 TG 168, LDL 109 01/21/2024: A1C 7.1 Na 136, Gluc 130, ALT 37 TG 173 02/03/2024: Santos ER Gluc 164 WBC 15.7 04/14/2024: A1C 8.9 WBC 15.6 Gluc 165, BUN 21, ALT 43, glob 2.0, TP WNL TG 187 Urine micro albv 78.8 45 minutes spent with her and her mother discussed all her medications and her diagnosis [email or web address] Not available 04/28/2024 14:50:30 Plan of Treatment Reminders Order Date Submit Date Provider Last Modified By Organization Details Last Modified Time Details Appointments None recorded. Lab lipid panel, serum [address] (Lab), [address] [place], [address], 4 13:58:07 CBC w/ auto diff 2023 [facility] (Lab), [address] [place], [address], 4 15:52:23 CMP, serum or plasma 2023 [facility] (Lab), [address] [place], [address], 4 16:38:13 TSH, serum or plasma [address] (Lab), [address] [place], [address], 4 13:58:08 vitamin D, 25-hydroxy, total, serum [address] (Lab), [address] [place], [address], 4 13:58:07 microalbumi n, urine [address] (Lab), [address] [place], [address], 4 13:58:07 HbA1c (hemoglobin A1c), blood [address] (Lab), [address] [place], [address], 4 13:58:07 vitamin B12 + folate, serum or blood 2023 024 [email or web address] [facility] (Lab), [address] [place], [address], 4 13:58:07 lipid panel, serum 2023 024 [facility] (Lab), [address] [place], [address], 4 18:28:48 CBC w/ auto diff 2023 024 [facility] (Lab), [address] [place], [address], 4 19:17:17 CMP, serum or plasma 2023 024 [facility] (Lab), [address] [place], [address], 4 18:28:56 TSH, serum or plasma 2023 024 [facility] (Lab), [address] [place], [address], 4 19:04:13 vitamin D, 25-hydroxy, total, serum [email or web address] [place] [address] (Lab), [address] [place], [address], 5 12:34:40 microalbumi n, urine 2023 024 [facility] (Lab), [address] [place], [address], 4 18:27:48 HbA1c (hemoglobin A1c), blood 2023 024 [email or web address] [address] [place] [address] (Lab), [address] [place], [address], 5 12:34:40 vitamin B12 + folate, serum or blood [address] (Lab), [address] [place], [address], 5 12:34:40 lipid panel, serum 2023 024 [facility] (Lab), [address] [place], [address], 4 18:36:55 CBC w/ auto diff 2023 024 [facility] (Lab), [address] [place], [address], 4 15:10:56 CMP, serum or plasma 2023 024 [facility] (Lab), [address] [place], [address], 4 18:37:20 TSH, serum or plasma 2023 024 [facility] (Lab), [address] [place], [address], 4 19:06:07 vitamin D, 25-hydroxy, total, serum [address] (Lab), [address] [place], [address], 4 14:29:36 microalbumi n, urine 2023 024 [facility] (Lab), [address] [place], [address], 4 17:13:34 HbA1c (hemoglobin A1c), blood [address] (Lab), [address] [place], [address], 4 14:29:35 vitamin B12 + folate, serum or blood 2023 024 [email or web address] [facility] (Lab), [address] [place], [address], 4 14:29:36 alpha-1-ant itrypsin (aat) phenotype, serum 2023 024 [email or web address] 82 [facility] (Lab), [address] [place], [address], 4 12:41:51 BNP (B-type natriuretic peptide), serum or plasma 2023 024 EUN [facility] (Lab), [address] [place], [address], 4 14:57:56 ige, total, serum 2023 024 [email or web address] 82 [facility] (Lab), [address] [place], [address], 4 12:41:51 tb (M tuberculosi s), ifn-gamma marichuy, blood 2023 024 [email or web address] 82 [facility] (Lab), [address] [place], [address], 4 12:41:52 eosinophil count, manual, blood (OBS) 2023 024 [email or web address] 82 [facility] (Lab), [address] [place], [address], 4 12:41:52 igg subclasses 1+2+3+4, serum 2023 024 [email or web address] 82 [facility] (Lab), [address] [place], [address], 4 12:41:52 respiratory allergen panel - [facility] a [email or web address] (Lab), [address] [place], [address], 4 12:41:52 respiratory allergen panel - [facility] b [email or web address] (Lab), [address] [place], [address], 4 12:41:52 lipid panel, serum 2023 024 [facility] (Lab), [address] [place], [address], 4 12:25:43 CMP, serum or plasma 2023 024 [facility] (Lab), [address] [place], [address], 4 12:25:54 CBC w/ auto diff 2023 024 [facility] (Lab), [address] [place], [address], 4 12:15:24 TSH + free T4, serum [email or web address] (Lab), [address] [place], [address], 4 09:15:57 vitamin D, 25-hydroxy, total, serum 2023 024 [email or web address] [address] [place] [address] (Lab), [address] [place], [address], 4 09:15:57 microalbumi n, urine 2023 024 EUN [facility] (Lab), [address] [place], [address], 4 12:25:28 HbA1c (hemoglobin A1c), blood [address] (Lab), [address] [place], [address], 4 09:15:57 vitamin B12 + folate, serum or blood [address] (Lab), [address] [place], [address], 4 09:15:58 Referral obstetricia n and gynecologis t referral - Please call patient to schedule. 2023 024 [email or web address] 6 Cristina Stover MD, [address] [facility] [address], [place], [address], 5 15:42:[address] referral 2023 024 [email or web address] Gray Zeng MD, [address] [place], [address], 4 12:11:13 cardiologis t referral 2023 024 [place], [address] [address] , [address], [address], 4 17:39:44 orthopedic surgeon referral - Please call patient to schedule. 2023 024 [email or web address] 6 Violet Mccloud FORECLOSURE FIELD INSPECTOR, [address] , [place], [address], 5 15:42:42 gynecologis t referral - Please call patient to schedule. 2023 024 [email or web address] 6 Cristina Stover MD, [address] [facility] [address], [place], [address], 5 15:42:42 hematologis t referral - Please call patient to schedule. 2023 024 EUN Llanes MD, [address], [place], [address], 5 13:51:11 banking assistant referral - Please call patient to schedule. 2023 024 [email or web address] 6 Castillo Huynh DPM, [address] [facility], [place], [address], 5 15:42:42 endocrinolo gy referral 2023 024 [email or web address] [place], [address] [address] , [place], [address], 4 12:23:02 obstetricia n and gynecologis t referral 2023 024 Cristina Stover MD, [address] [facility] [address], [place], [address], 4 09:43:20 orthopedic surgeon referral 2023 024 [email or web address] Dru Graham MD, [address] [facility], [place], [address], 4 09:43:[address] referral 2023 024 Gray Zeng MD, [address] [place], [address], 4 09:43:22 gynecologis t referral 2023 024 [email or web address] Cristina Stover MD, [address] [facility] [address], [place], [address], 4 09:43:22 cardiologis t referral 2023 024 [email or web address] [place], [address], [place], [address], 4 09:43:21 banking assistant referral 2023 024 [email or web address] Castillo Huynh DPM, [address] [facility], [place], [address], 4 09:43:19 endocrinolo gy referral 2023 024 [email or web address] Ace Mercado MD, [address], [place], [address], 4 09:43:20 obstetricia n and gynecologis t referral 2023 024 [email or web address] 6 Cristina Stover MD, [address], [place], [address], 5 12:46:11 orthopedic surgeon referral 2023 024 [email or web address] 6 Dru Graham MD, [address] [facility], [place], [address], 5 08:28:37 cardiologis t referral 2023 024 [email or web address] 6 [place], [address], [place], [address], 5 12:46:12 banking assistant referral 2023 024 [email or web address] 6 Castillo Huynh DPM, [address] [facility], [place], [address], 5 08:45:29 endocrinolo gy referral 2023 024 [email or web address] 6 Ace Mercado MD, [address], [place], [address], 5 09:29:49 obstetricia n and gynecologis t referral 2023 024 [email or web address] 6 Cristina Stover MD, [address], [place], [address], 4 08:37:30 cardiologis t referral 2023 024 [email or web address] 6 [place], [address], [place], [address], 4 08:37:31 banking assistant referral 2023 024 [email or web address] 6 Castillo Huynh DPM, [address], [place], [address], 4 08:37:12 endocrinolo gy referral 2023 024 [email or web address] Ace Mercado MD, [address], [place], [address], 5 09:20:06 Procedures None recorded. Surgeries None recorded. Imaging None recorded. Medication Orders nystatin 100,000 unit/gram topical cream [email or web address] [place] [address] [address], [address] [place] [address], [address], 4 18:21:13 albuterol sulfate HFA 90 mcg/actuati on aerosol inhaler 2023 024 [facility], [address] [place], [address], 4 11:17:13 Patient TargetsNo targets recorded. Patient Instructions Encounter Date Encounter Id Patient Instructions Last Modified By Organization Details Last Modified Time 09/25/2023 [id number] diabetic eye exam* Not avail able 03/31/2024 10:36:46 12/26/2023 [id number] complete PFT w/ post bronchodilator spirometry* EUN Not available 02/11/2024 10:47:23 01/15/2024 [id number] diabetic eye exam* [email or web address] Not avail able 07/14/2024 12:45:51 02/21/2024 [id number] diabetic eye exam* [email or web address] Not avai lable 08/19/2024 08:45:46 04/23/2024 [id number] diabetic eye exam* [email or web address] Not availa ble 04/23/2024 17:07:52 Reason for Referral Fairground Operator Referral for Type 2 diabetes mellitus without complication Referring Physician: Hernan Madden Internal Medicine, Encounter Date: 09/25/2023 Endocrinology Referral for T ype 2 diabetes mellitus without complication Referring Physician: Devorah Gomes Medicine, Encounter Date: 09/25/2023 Mobility Developer And Gynecologis t Referral for Gynecologic examination Referring Physician: Devorah Gomes Medicine, Encounter Date: 09/25/2023 Insole Filler Referral for Ta chycardia Referring Physician: Devorah Gomes Medicine, Encounter Date: 09/25/2023 Fairground Operator Referral for Type 2 diabetes mellitus without complication Referring Physician: Devorah Gomes Medicine, Encounter Date: 01/15/2024 Endocrinology Referral for T ype 2 diabetes mellitus without complication Referring Physician: Devorah Gomes, Encounter Date: 01/15/2024 Mobility Developer And Gynecologis t Referral for Gynecologic examination Referring Physician: Devorah Gomes, Encounter Date: 01/15/2024 Insole Filler Referral for Ta chycardia Referring Physician: Devorah Gomes, Encounter Date: 01/15/2024 Orthopedic Surgeon Referral for Pain of bilateral hip joints Referring Physician: Hernan Madden Internal Medicine, Encounter Date: 01/15/2024 Fairground Operator Referral for Type 2 diabetes mellitus without complication Referring Physician: Hernan Madden Internal Medicine, Encounter Date: 02/21/2024 Endocrinology Referral for T ype 2 diabetes mellitus without complication Referring Physician: Hernan Madden Internal Medicine, Encounter Date: 02/21/2024 Mobility Developer And Gynecologis t Referral for Gynecologic examination Referring Physician: Hernan Madden Internal Medicine, Encounter Date: 02/21/2024 Insole Filler Referral for Ta chycardia Referring Physician: Devorah Gomes Medicine, Encounter Date: 02/21/2024 Orthopedic Surgeon Referral for Pain of bilateral hip joints Referring Physician: Devorah Gomes Medicine, Encounter Date: 02/21/2024 Fpga Engineer Referral for D yspnea on exertion Referring Physician: Devorah Gomes Medicine, Encounter Date: 02/21/2024 Wine Steward Referral for Hy pertrophy of vulva Referring Physician: Devorah Gomes, Encounter Date: 02/21/2024 Fairground Operator Referral for Type 2 diabetes mellitus without complication Please call patient to schedule. Referring Physician: Devorah Gomes, Encounter Date: 04/23/2024 Endocrinology Referral for T ype 2 diabetes mellitus without complication Referring Physician: Devorah Gomes, Encounter Date: 04/23/2024 Mobility Developer And Gynecologis t Referral for Gynecologic examination Please call patient to schedule. Referring Physician: Devorah Gomes, Encounter Date: 04/23/2024 Insole Filler Referral for Ta chycardia Referring Physician: Devorah Gomes, Encounter Date: 04/23/2024 Orthopedic Surgeon Referral for Pain of bilateral hip joints Please call patient to schedule. Referring Physician: Hernan Madden Internal Medicine, Encounter Date: 04/23/2024 Fpga Engineer Referral for D yspnea on exertion Referring Physician: Hernan Madden Internal Medicine, Encounter Date: 04/23/2024 Wine Steward Referral for Hy pertrophy of vulva Please call patient to schedule. Referring Physician: Hernan Madden Internal Medicine, Encounter Date: 04/23/2024 Please call patient to sched ule. Referring Physician: Hrenan Madden Internal Medicine, Encounter Date: 04/23/2024 Results Created Date Observation Date Name Description Value Unit Range Abnormal Flag Note LastModifiedBy Organization Detail LastModifiedTime 09/28/19 24 09/28/2023 CBC/C OMPLE TE BLD COUNT W/DIF F white blood cells 10.0 x10'3 /uL 4.2-10 .8 Not Available [facility] (Lab) [address] [place], [address], 09/28/2023 12:15:24 09/28/19 24 09/28/2023 CBC/C OMPLE TE BLD COUNT W/DIF F red blood cells 4.50 x10'6 /uL 3.80-5 .20 Not Available [facility] (Lab) [address] [place], [address], 09/28/2023 12:15:24 09/28/19 24 09/28/2023 CBC/C OMPLE TE BLD COUNT W/DIF F hemoglobin 12.9 g/dL 12.0-1 5.6 Not Available [facility] (Lab) [address] [place], [address], 09/28/2023 12:15:24 09/28/19 24 09/28/2023 CBC/C OMPLE TE BLD COUNT W/DIF F hematocrit 40.2 % 35.7-4 5.7 Not Available [facility] (Lab) [address] [place], [address], 09/28/2023 12:15:24 09/28/19 24 09/28/2023 CBC/C OMPLE TE BLD COUNT W/DIF F mean red cell volume 89.3 fL 82.0-9 9.0 Not Available [facility] (Lab) [address] [place], [address], 09/28/2023 12:15:24 09/28/19 24 09/28/2023 CBC/C OMPLE TE BLD COUNT W/DIF F mean red cell hemoglobin 28.7 pg 27.0-3 3.0 Not Available [facility] (Lab) [address] [place], [address], 09/28/2023 12:15:24 09/28/19 24 09/28/2023 CBC/C OMPLE TE BLD COUNT W/DIF F mean RBC HGB concentratio n 32.1 g/dL 31.0-3 6.0 Not Available [facility] (Lab) [address] [place], [address], 09/28/2023 12:15:24 09/28/19 24 09/28/2023 CBC/C OMPLE TE BLD COUNT W/DIF F red cell distribution width 12.6 % 11.8-1 5.5 Not Available [facility] (Lab) [address] [place], [address], 09/28/2023 12:15:24 09/28/19 24 09/28/2023 CBC/C OMPLE TE BLD COUNT W/DIF F platelets 282 x10'3 /uL 150-40 0 Not Available [facility] (Lab) [address] [place], [address], 09/28/2023 12:15:24 09/28/19 24 09/28/2023 CBC/C OMPLE TE BLD COUNT W/DIF F mean platelet volume 10.6 fL 9.0-12 .4 Not Available [facility] (Lab) [address] [place], [address], 09/28/2023 12:15:24 09/28/19 24 09/28/2023 CBC/C OMPLE TE BLD COUNT W/DIF F neutrophils 54.7 % 39.0-7 2.0 Not Available [facility] (Lab) [address] [place], [address], 09/28/2023 12:15:24 09/28/1909/28/2023 CBC/C OMPLE TE BLD COUNT W/DIF F lymphocytes 33.0 % 16.0-4 7.0 Not Available [facility] (Lab) [address] [place], [address], 09/28/2023 12:15:24 09/28/19 24 09/28/2023 CBC/C OMPLE TE BLD COUNT W/DIF F monocytes 9.2 % 5.0-12 .0 Not Available [facility] (Lab) [address] [place], [address], 09/28/2023 12:15:24 09/28/19 24 09/28/2023 CBC/C OMPLE TE BLD COUNT W/DIF F eosinophils 1.3 % 1.0-7. 0 Not Available [facility] (Lab) [address] [place], [address], 09/28/2023 12:15:24 09/28/1909/28/2023 CBC/C OMPLE TE BLD COUNT W/DIF F basophils 0.7 % 0.0-2. 0 Not Available [facility] (Lab) [address] [place], [address], 09/28/2023 12:15:24 09/28/19 24 09/28/2023 CBC/C OMPLE TE BLD COUNT W/DIF F immature granulocytes 1.1 % 0.00-0 .50 high Not Available [facility] (Lab) [address] [place], [address], 09/28/2023 12:15:24 09/28/19 24 09/28/2023 CBC/C OMPLE TE BLD COUNT W/DIF F neutrophils, absolute count 5.44 x10'3 /uL 1.5-8. 0 Not Available [facility] (Lab) [address] [place], [address], 09/28/2023 12:15:24 09/28/19 24 09/28/2023 CBC/C OMPLE TE BLD COUNT W/DIF F lymphocytes, absolute count 3.29 x10'3 /uL 1.07-3 .43 Not Available [facility] (Lab) [address] [place], [address], 09/28/2023 12:15:24 09/28/19 24 09/28/2023 CBC/C OMPLE TE BLD COUNT W/DIF F monocytes, absolute count 0.92 x10'3 /uL 0.29-0 .99 Not Available [facility] (Lab) [address] [place], [address], 09/28/2023 12:15:24 09/28/19 24 09/28/2023 CBC/C OMPLE TE BLD COUNT W/DIF F eosinophils, absolute count 0.13 x10'3 /uL 0.02-0 .53 Not Available [facility] (Lab) [address] [place], [address], 09/28/2023 12:15:24 09/28/19 24 09/28/2023 CBC/C OMPLE TE BLD COUNT W/DIF F basophils, absolute count 0.07 x10'3 /uL 0.01-0 .08 Not Available [facility] (Lab) [address] [place], [address], 09/28/2023 12:15:24 09/28/19 24 09/28/2023 CBC/C OMPLE TE BLD COUNT W/DIF F immature granulocytes ,absolute 0.11 x10'3 /uL 0.00-0 .05 high Not Available [facility] (Lab) [address] [place], [address], 09/28/2023 12:15:24 09/28/19 24 09/28/2023 CBC/C OMPLE TE BLD COUNT W/DIF F nucleated red blood cells 0.0 % -0 Not Available [facility] (Lab) [address] [place], [address], 09/28/2023 12:15:24 09/28/19 24 09/28/2023 CBC/C OMPLE TE BLD COUNT W/DIF F NRBC# 0.00 x10'3 /uL Not Available [facility] (Lab) [address] [place], [address], 09/28/2023 12:15:24 09/28/19 24 09/28/2023 MICRO ALBUM IN RANDO M URINE microalbumin , urine 7.0 mg/L 0.0-16 .6 Not Available [facility] (Lab) [address] [place], [address], 09/28/2023 12:25:28 09/28/19 24 09/28/2023 LIPID PANEL cholesterol 191 mg/dL 140-19 9 [facility] NSUS RECOM MENDA TION FOR YANELY STERO L: ADULT CHILD LOW RISK: <200 <170 BORDE RLINE : <200- 239 ----- HIGH RISK: >240 >200 Not Available [facility] (Lab) [address] [place], [address], 09/28/2023 12:25:43 09/28/19 24 09/28/2023 LIPID PANEL triglyceride s 168 mg/dL 0-150 high NIH [facility] NSUS REPOR T RECOM MENDA TION FOR TRIGL YCERI YAZMIN: ADULT CHILD LOW RISK: <150 ----- BODER LINE: 150-1 99 ----- HIGH RISK: >200 ----- Not Available [facility] (Lab) [address] [place], [address], 09/28/2023 12:25:43 09/28/19 24 09/28/2023 LIPID PANEL HDL cholesterol 48 mg/dL 40- Not Available [facility] (Lab) [address] [place], [address], 09/28/2023 12:25:43 09/28/19 24 09/28/2023 LIPID PANEL LDL cholesterol, calculated 109 mg/dL 0-130 [facility] NSUS REPOR T RECOM MENDA TIONS FOR LDL: ADULT CHILD LOW RISK <130 <110 (OPTI MAL LDL) <100 ----- CARRIE RLINE : 130-1 59 ----- HIGH RISK: >160 >130 A TRIGL YCERI DE RESUL T >400 INVAL IDATE S THE CALCU LATIO N FOR LDL FRACT IONAT ION - THE LDL RESUL T WILL NOT BE REPOR VIKTOR. Not Available [facility] (Lab) [address] [place], [address], 09/28/2023 12:25:43 09/28/19 24 09/28/2023 COMP MET PANEL /LIVE R sodium 136 mmol/ L 137-14 5 low Not Available [facility] (Lab) [address] [place], [address], 09/28/2023 12:25:54 09/28/19 24 09/28/2023 COMP MET PANEL /LIVE R potassium 4.1 mmol/ L 3.5-5. 1 Not Available [facility] (Lab) [address] [place], [address], 09/28/2023 12:25:54 09/28/19 24 09/28/2023 COMP MET PANEL /LIVE R chloride 105 mmol/ L 98-107 Not Available [facility] (Lab) [address] [place], [address], 09/28/2023 12:25:54 09/28/19 24 09/28/2023 COMP MET PANEL /LIVE R carbon dioxide 25 mmol/ L 22-30 Not Available [facility] (Lab) [address] [place], [address], 09/28/2023 12:25:54 09/28/19 24 09/28/2023 COMP MET PANEL /LIVE R anion gap 10.1 mmol/ L 14-22 low Not Available [facility] (Lab) [address] [place], [address], 09/28/2023 12:25:54 09/28/19 24 09/28/2023 COMP MET PANEL /LIVE R glucose 153 mg/dL 70-99 high Not Available [facility] (Lab) [address] [place], [address], 09/28/2023 12:25:54 09/28/19 24 09/28/2023 COMP MET PANEL /LIVE R BUN 14 mg/dL 8-19 Not Available [facility] (Lab) [address] [place], [address], 09/28/2023 12:25:54 09/28/19 24 09/28/2023 COMP MET PANEL /LIVE R creatinine 0.53 mg/dL 0.66-1 .25 low Not Available [facility] (Lab) [address] [place], [address], 09/28/2023 12:25:54 09/28/19 24 09/28/2023 COMP MET PANEL /LIVE R GFR >60 Refer ence Range : [place] ge GFR Healt hy Adult : >60 mL/mi n/1.7 3 m2 Chron ic Kidne y Disea se: 15-60 mL/mi n/1.7 3 m2 Kidne y Failu re: <15/m L/min /1.73 m2 [email or web address] The MDRD study equat ion has not been valid ated in child samuel <18 years of age; pregn ant women ; the elder ly >85 years of age; or in some racia l or ethni c subgr oups, such as Hispa nics. Outsi de the valid ated tammie eters , estim ated GFR is less accur ate, requi ring clini wei judgm ent on a case- by-ca se basis . Clini wei inter preta tion for other races and ages must be made by the clini roselia. The MDRD study equat ion has not been valid ated for the evalu ation of serum creat inine relat ed to nutri ashleigh l statu s or medic ation usage . For perso ns <18 years of age, a pedia tric GFR calcu lator is avail able on the [facility] websi te: https ://jaleel w.caron chavez.o rg/pr ofess ional s/kdo qi/gf r_cal culat or Not Available [facility] (Lab) [address] [place], [address], 09/28/2023 12:25:54 09/28/19 24 09/28/2023 COMP MET PANEL /LIVE R alkaline phosphatase 94 U/L 38-126 Not Available [facility] (Lab) [address] [place], [address], 09/28/2023 12:25:54 09/28/19 24 09/28/2023 COMP MET PANEL /LIVE R alanine aminotransfe rase 23 U/L 0-35 Not Available [facility] (Lab) [address] [place], [address], 09/28/2023 12:25:54 09/28/19 24 09/28/2023 COMP MET PANEL /LIVE R aspartate aminotransfe rase 24 U/L 15-37 Not Available [facility] (Lab) [address] [place], [address], 09/28/2023 12:25:54 09/28/19 24 09/28/2023 COMP MET PANEL /LIVE R bilirubin, total 0.20 mg/dL 0.20-1 .30 Not Available [facility] (Lab) [address] [place], [address], 09/28/2023 12:25:54 09/28/19 24 09/28/2023 COMP MET PANEL /LIVE R bilirubin, conjugated (direct) 0.00 mg/dL 0.00-0 .30 Not Available [facility] (Lab) [address] [place], [address], 09/28/2023 12:25:54 09/28/19 24 09/28/2023 COMP MET PANEL /LIVE R biliurubin,u ncong. (indirect) 0.00 mg/dL 0.00-1 .1 Not Available [facility] (Lab) [address] [place], [address], 09/28/2023 12:25:54 09/28/19 24 09/28/2023 COMP MET PANEL /LIVE R calcium 9.3 mg/dL 8.4-10 .2 Not Available [facility] (Lab) [address] [place], [address], 09/28/2023 12:25:54 09/28/19 24 09/28/2023 COMP MET PANEL /LIVE R total protein 6.3 g/dL 6.3-8. 2 Not Available [facility] (Lab) [address] [place], [address], 09/28/2023 12:25:54 09/28/19 24 09/28/2023 COMP MET PANEL /LIVE R albumin 4.1 g/dL 3.4-5. 0 Not Available [facility] (Lab) [address] [place], [address], 09/28/2023 12:25:54 09/28/19 24 09/28/2023 COMP MET PANEL /LIVE R globulin 2.2 g/dL 2.6-4. 2 low Not Available [facility] (Lab) [address] [place], [address], 09/28/2023 12:25:54 09/28/19 24 09/28/2023 COMP MET PANEL /LIVE R A/G ratio 1.9 ratio 1.0-2. 0 Not Available [facility] (Lab) [address] [place], [address], 09/28/2023 12:25:54 09/28/19 24 09/28/2023 T4 FREE free T4 0.88 NG/dL 0.78-2 .19 Not Available [facility] (Lab) [address] [place], [address], 09/28/2023 12:35:36 09/28/19 24 09/28/2023 VITAM IN D 25-HY DROXY vd25oh 38.4 NG/mL 30-100 Vitam in D Statu s: Defic ient: <20 ng/mL Insuf ficie nt: 20-29 ng/mL Suffi cient : 30-10 0 ng/mL Not Available [facility] (Lab) [address] [place], [address], 09/28/2023 12:35:47 09/28/19 24 09/28/2023 TSH thyroid-stim ulating hormone 0.989 uIU/m L 0.465- 4.680 Not Available [facility] (Lab) [address] [place], [address], 09/28/2023 13:09:13 09/28/19 24 09/28/2023 VITAM IN B12 (TAHIR DESMOND ) vb12 621 pg/mL 239-93 1 Not Available [facility] (Lab) [address] [place], [address], 09/28/2023 13:24:00 04/1209/28/2023 FOLAT E, SERUM /PLAS MA folate 15.4 NG/mL 2.76-2 0.0 Not Available [facility] (Lab) [address] [place], [address], 09/28/2023 13:24:05 09/28/19 24 09/28/2023 HEMOG LOBIN A1C HA1C 7.1 % 4.0-6. 0 high Diabe danay Scree dani Crite sánchez: <5.7% Consi stent with absen ce of diabe danay 5.7-6 .4% Consi stent with incre ased risk for diabe danay (pred iabet es) >OR=6 .5% Consi stent with diabe danay REFER ENCE: Diabe danay Care 2016, 39(Mccloud ppl.1 ):s13 -s22 Not Available [facility] (Lab) [address] [place], [address], 09/28/2023 19:31:13 01/21/20 24 01/21/2024 CBC/C OMPLE TE BLD COUNT W/DIF F white blood cells 9.4 x10'3 /uL 4.2-10 .8 Not Available [facility] (Lab) [address] [place], [address], 01/21/2024 15:10:56 01/21/20 24 01/21/2024 CBC/C OMPLE TE BLD COUNT W/DIF F red blood cells 4.36 x10'6 /uL 3.80-5 .20 Not Available [facility] (Lab) [address] [place], [address], 01/21/2024 15:10:56 01/21/20 24 01/21/2024 CBC/C OMPLE TE BLD COUNT W/DIF F hemoglobin 12.6 g/dL 12.0-1 5.6 Not Available [facility] (Lab) [address] [place], [address], 01/21/2024 15:10:56 01/21/20 24 01/21/2024 CBC/C OMPLE TE BLD COUNT W/DIF F hematocrit 39.4 % 35.7-4 5.7 Not Available [facility] (Lab) [address] [place], [address], 01/21/2024 15:10:56 01/21/20 24 01/21/2024 CBC/C OMPLE TE BLD COUNT W/DIF F mean red cell volume 90.4 fL 82.0-9 9.0 Not Available [facility] (Lab) [address] [place], [address], 01/21/2024 15:10:56 01/21/20 24 01/21/2024 CBC/C OMPLE TE BLD COUNT W/DIF F mean red cell hemoglobin 28.9 pg 27.0-3 3.0 Not Available [facility] (Lab) [address] [place], [address], 01/21/2024 15:10:56 01/21/20 24 01/21/2024 CBC/C OMPLE TE BLD COUNT W/DIF F mean RBC HGB concentratio n 32.0 g/dL 31.0-3 6.0 Not Available [facility] (Lab) [address] [place], [address], 01/21/2024 15:10:56 01/21/20 24 01/21/2024 CBC/C OMPLE TE BLD COUNT W/DIF F red cell distribution width 12.4 % 11.8-1 5.5 Not Available [facility] (Lab) [address] [place], [address], 01/21/2024 15:10:56 01/21/20 24 01/21/2024 CBC/C OMPLE TE BLD COUNT W/DIF F platelets 277 x10'3 /uL 150-40 0 Not Available [facility] (Lab) [address] [place], [address], 01/21/2024 15:10:56 01/21/20 24 01/21/2024 CBC/C OMPLE TE BLD COUNT W/DIF F mean platelet volume 10.8 fL 9.0-12 .4 Not Available [facility] (Lab) [address] [place], [address], 01/21/2024 15:10:56 01/21/20 24 01/21/2024 CBC/C OMPLE TE BLD COUNT W/DIF F neutrophils 56.2 % 39.0-7 2.0 Not Available [facility] (Lab) [address] [place], [address], 01/21/2024 15:10:56 01/21/20 24 01/21/2024 CBC/C OMPLE TE BLD COUNT W/DIF F lymphocytes 32.5 % 16.0-4 7.0 Not Available [facility] (Lab) [address] [place], [address], 01/21/2024 15:10:56 01/21/20 24 01/21/2024 CBC/C OMPLE TE BLD COUNT W/DIF F monocytes 8.9 % 5.0-12 .0 Not Available [facility] (Lab) [address] [place], [address], 01/21/2024 15:10:56 01/21/20 24 01/21/2024 CBC/C OMPLE TE BLD COUNT W/DIF F eosinophils 1.1 % 1.0-7. 0 Not Available [facility] (Lab) [address] [place], [address], 01/21/2024 15:10:56 01/21/20 24 01/21/2024 CBC/C OMPLE TE BLD COUNT W/DIF F basophils 0.6 % 0.0-2. 0 Not Available [facility] (Lab) [address] [place], [address], 01/21/2024 15:10:56 01/21/20 24 01/21/2024 CBC/C OMPLE TE BLD COUNT W/DIF F immature granulocytes 0.7 % 0.00-0 .50 high Not Available [facility] (Lab) [address] [place], [address], 01/21/2024 15:10:56 01/21/20 24 01/21/2024 CBC/C OMPLE TE BLD COUNT W/DIF F neutrophils, absolute count 5.26 x10'3 /uL 1.5-8. 0 Not Available [facility] (Lab) [address] [place], [address], 01/21/2024 15:10:56 01/21/20 24 01/21/2024 CBC/C OMPLE TE BLD COUNT W/DIF F lymphocytes, absolute count 3.04 x10'3 /uL 1.07-3 .43 Not Available [facility] (Lab) [address] [place], [address], 01/21/2024 15:10:56 01/21/20 24 01/21/2024 CBC/C OMPLE TE BLD COUNT W/DIF F monocytes, absolute count 0.83 x10'3 /uL 0.29-0 .99 Not Available [facility] (Lab) [address] [place], [address], 01/21/2024 15:10:56 01/21/20 24 01/21/2024 CBC/C OMPLE TE BLD COUNT W/DIF F eosinophils, absolute count 0.10 x10'3 /uL 0.02-0 .53 Not Available [facility] (Lab) [address] [place], [address], 01/21/2024 15:10:56 01/21/20 24 01/21/2024 CBC/C OMPLE TE BLD COUNT W/DIF F basophils, absolute count 0.06 x10'3 /uL 0.01-0 .08 Not Available [facility] (Lab) [address] [place], [address], 01/21/2024 15:10:56 01/21/20 24 01/21/2024 CBC/C OMPLE TE BLD COUNT W/DIF F immature granulocytes ,absolute 0.07 x10'3 /uL 0.00-0 .05 high Not Available [facility] (Lab) [address] [place], [address], 01/21/2024 15:10:56 01/21/20 24 01/21/2024 CBC/C OMPLE TE BLD COUNT W/DIF F nucleated red blood cells 0.0 % -0 Not Available [facility] (Lab) [address] [place], [address], 01/21/2024 15:10:56 01/21/20 24 01/21/2024 CBC/C OMPLE TE BLD COUNT W/DIF F NRBC# 0.00 x10'3 /uL Not Available [facility] (Lab) [address] [place], [address], 01/21/2024 15:10:56 01/21/20 24 01/21/2024 HEMOG LOBIN A1C HA1C 7.1 % 4.0-6. 0 high Diabe danay Scree dani Crite sánchez: <5.7% Consi stent with absen ce of diabe danay 5.7-6 .4% Consi stent with incre ased risk for diabe danay (pred iabet es) >OR=6 .5% Consi stent with diabe danay REFER ENCE: Diabe danay Care 2016, 39(Mccloud ppl.1 ):s13 -s22 Not Available [facility] (Lab) [address] [place], [address], 01/21/2024 16:48:14 01/21/20 24 01/21/2024 MICRO ALBUM IN RANDO M URINE microalbumin , urine 14.8 mg/L 0.0-16 .6 Not Available [facility] (Lab) [address] [place], [address], 01/21/2024 17:13:33 01/21/20 24 01/21/2024 LIPID PANEL cholesterol 120 mg/dL 140-19 9 low NIH [facility] NSUS RECOM MENDA TION FOR YANELY STERO L: ADULT CHILD LOW RISK: <200 <170 BORDE RLINE : <200- 239 ----- HIGH RISK: >240 >200 Not Available [facility] (Lab) [address] [place], [address], 01/21/2024 18:36:55 01/21/20 24 01/21/2024 LIPID PANEL triglyceride s 173 mg/dL 0-150 high NIH [facility] NSUS REPOR T RECOM MENDA TION FOR TRIGL YCERI YAZMIN: ADULT CHILD LOW RISK: <150 ----- BODER LINE: 150-1 99 ----- HIGH RISK: >200 ----- Not Available [facility] (Lab) [address] [place], [address], 01/21/2024 18:36:55 01/21/20 24 01/21/2024 LIPID PANEL HDL cholesterol 41 mg/dL 40- Not Available [facility] (Lab) [address] [place], [address], 01/21/2024 18:36:55 01/21/20 24 01/21/2024 LIPID PANEL LDL cholesterol, calculated 44 mg/dL 0-130 [facility] NSUS REPOR T RECOM MENDA TIONS FOR LDL: ADULT CHILD LOW RISK <130 <110 (OPTI MAL LDL) <100 ----- BORDE RLINE : 130-1 59 ----- HIGH RISK: >160 >130 A TRIGL YCERI DE RESUL T >400 INVAL IDATE S THE CALCU LATIO N FOR LDL FRACT IONAT ION - THE LDL RESUL T WILL NOT BE REPOR VIKTOR. Not Available [facility] (Lab) [address] [place], [address], 01/21/2024 18:36:55 01/21/20 24 01/21/2024 COMPR EHENS RODOLFO METAB OLIC PANEL sodium 136 mmol/ L 137-14 5 low Not Available [facility] (Lab) [address] [place], [address], 01/21/2024 18:37:20 01/21/20 24 01/21/2024 COMPR EHENS RODOLFO METAB OLIC PANEL potassium 4.3 mmol/ L 3.5-5. 1 Not Available [facility] (Lab) [address] [place], [address], 01/21/2024 18:37:20 01/21/20 24 01/21/2024 COMPR EHENS RODOLFO METAB OLIC PANEL chloride 105 mmol/ L 98-107 Not Available [facility] (Lab) [address] [place], [address], 01/21/2024 18:37:20 01/21/20 24 01/21/2024 COMPR EHENS RODOLFO METAB OLIC PANEL carbon dioxide 23 mmol/ L 22-30 Not Available [facility] (Lab) [address] [place], [address], 01/21/2024 18:37:20 01/21/20 24 01/21/2024 COMPR EHENS RODOLFO METAB OLIC PANEL anion gap 12.3 mmol/ L 14-22 low Not Available [facility] (Lab) [address] [place], [address], 01/21/2024 18:37:20 01/21/20 24 01/21/2024 COMPR EHENS RODOLFO METAB OLIC PANEL glucose 130 mg/dL 70-99 high Not Available [facility] (Lab) [address] [place], [address], 01/21/2024 18:37:20 01/21/20 24 01/21/2024 COMPR EHENS RODOLFO METAB OLIC PANEL BUN 14 mg/dL 8-19 Not Available [facility] (Lab) [address] [place], [address], 01/21/2024 18:37:20 01/21/20 24 01/21/2024 COMPR EHENS RODOLFO METAB OLIC PANEL creatinine 0.54 mg/dL 0.66-1 .25 low Not Available [facility] (Lab) [address] [place], [address], 01/21/2024 18:37:20 01/21/20 24 01/21/2024 COMPR EHENS RODOLFO METAB OLIC PANEL GFR >60 Refer ence Range : [place] ge GFR Healt hy Adult : >60 mL/mi n/1.7 3 m2 Chron ic Kidne y Disea se: 15-60 mL/mi n/1.7 3 m2 Kidne y Failu re: <15/m L/min /1.73 m2 www.n iddk. nih.g ov The MDRD study equat ion has not been valid ated in child samuel <18 years of age; pregn ant women ; the elder ly >85 years of age; or in some racia l or ethni c subgr oups, such as Hisco nics. Outsi de the valid ated tammie eters , estim ated GFR is less accur ate, requi ring clini wei judgm ent on a case- by-ca se basis . Clini wei inter preta tion for other races and ages must be made by the clini roselia. The MDRD study equat ion has not been valid ated for the evalu ation of serum creat inine relat ed to nutri ashleigh l statu s or medic ation usage . For perso ns <18 years of age, a pedia tric GFR calcu lator is avail able on the F websi te: https ://jaleel chavez.ting al/pr jesica fuentesal s/kdo qi/gf r_cal culat or Not Available [facility] (Lab) [address] [place], [address], 01/21/2024 18:37:20 01/21/20 24 01/21/2024 COMPR EHENS RODOLFO METAB OLIC PANEL alkaline phosphatase 103 U/L 38-126 Not Available [facility] (Lab) [address] [place], [address], 01/21/2024 18:37:20 01/21/20 24 01/21/2024 COMPR EHENS RODOLFO METAB OLIC PANEL alanine aminotransfe rase 37 U/L 0-35 high Not Available [facility] (Lab) [address] [place], [address], 01/21/2024 18:37:20 01/21/20 24 01/21/2024 COMPR EHENS RODOLFO METAB OLIC PANEL aspartate aminotransfe rase 24 U/L 15-37 Not Available [facility] (Lab) [address] [place], [address], 01/21/2024 18:37:20 01/21/20 24 01/21/2024 COMPR EHENS RODOLFO METAB OLIC PANEL bilirubin, total 0.60 mg/dL 0.20-1 .30 Not Available [facility] (Lab) [address] [place], [address], 01/21/2024 18:37:20 01/21/20 24 01/21/2024 COMPR EHENS RODOLFO METAB OLIC PANEL calcium 9.3 mg/dL 8.4-10 .2 Not Available [facility] (Lab) [address] [place], [address], 01/21/2024 18:37:20 01/21/20 24 01/21/2024 COMPR EHENS RODOLFO METAB OLIC PANEL total protein 6.5 g/dL 6.3-8. 2 Not Available [facility] (Lab) [address] [place], [address], 01/21/2024 18:37:20 01/21/20 24 01/21/2024 COMPR EHENS RODOLFO METAB OLIC PANEL albumin 4.3 g/dL 3.4-5. 0 Not Available [facility] (Lab) [address] [place], [address], 01/21/2024 18:37:20 01/21/20 24 01/21/2024 COMPR EHENS RODOLFO METAB OLIC PANEL globulin 2.2 g/dL 2.6-4. 2 low Not Available [facility] (Lab) [address] [place], [address], 01/21/2024 18:37:20 01/21/20 24 01/21/2024 COMPR EHENS RODOLFO METAB OLIC PANEL A/G ratio 2.0 ratio 1.0-2. 0 Not Available [facility] (Lab) [address] [place], [address], 01/21/2024 18:37:20 01/21/20 24 01/21/2024 VITAM IN D 25-HY DROXY vd25oh 38.5 NG/mL 30-100 Vitam in D Statu s: Defic ient: <20 ng/mL Insuf ficie nt: 20-29 ng/mL Suffi cient : 30-10 0 ng/mL Not Available [facility] (Lab) [address] [place], [address], 01/21/2024 18:58:38 01/21/20 24 01/21/2024 TSH W/REF KAELYN FT4 TSH with reflex free T4 0.625 uIU/m L 0.465- 4.680 Not Available [facility] (Lab) [address] [place], [address], 01/21/2024 19:06:07 01/21/20 24 01/21/2024 VITAM IN B12 (TAHIR DESMOND ) vb12 784 pg/mL 239-93 1 Not Available [facility] (Lab) [address] [place], [address], 01/21/2024 19:47:31 01/21/2001/21/2024 FOLAT E, SERUM /PLAS MA folate >20.0 NG/mL 2.76-2 0.0 Not Available [facility] (Lab) [address] [place], [address], 01/21/2024 19:47:38 04/14/2004/14/2024 MICRO ALBUM IN RANDO M URINE microalbumin , urine 78.8 mg/L 0.0-16 .6 high Not Available [facility] (Lab) [address] [place], [address], 04/14/2024 18:27:48 04/14/2004/14/2024 LIPID PANEL cholesterol 133 mg/dL 140-19 9 low [facility] NSUS RECOM MENDA TION FOR YANELY STERO L: ADULT CHILD LOW RISK: <200 <170 BORDE RLINE : <200- 239 ----- HIGH RISK: >240 >200 Not Available [facility] (Lab) [address] [place], [address], 04/14/2024 18:28:48 04/14/2004/14/2024 LIPID PANEL triglyceride s 187 mg/dL 0-150 high [facility] NSUS REPOR T RECOM MENDA TION FOR TRIGL YCERI YAZMIN: ADULT CHILD LOW RISK: <150 ----- BODER LINE: 150-1 99 ----- HIGH RISK: >200 ----- Not Available [facility] (Lab) [address] [place], [address], 04/14/2024 18:28:48 04/14/2004/14/2024 LIPID PANEL HDL cholesterol 49 mg/dL 40- Not Available [facility] (Lab) [address] [place], [address], 04/14/2024 18:28:48 04/14/2004/14/2024 LIPID PANEL LDL cholesterol, calculated 47 mg/dL 0-130 [facility] NSUS REPOR T RECOM MENDA TIONS FOR LDL: ADULT CHILD LOW RISK <130 <110 (OPTI MAL LDL) <100 ----- BORDE RLINE : 130-1 59 ----- HIGH RISK: >160 >130 A TRIGL YCERI DE RESUL T >400 INVAL IDATE S THE CALCU LATIO N FOR LDL FRACT IONAT ION - THE LDL RESUL T WILL NOT BE REPOR VIKTOR. Not Available [facility] (Lab) [address] [place], [address], 04/14/2024 18:28:48 04/14/2004/14/2024 COMPR EHENS RODOLFO METAB OLIC PANEL sodium 135 mmol/ L 137-14 5 low Not Available [facility] (Lab) [address] [place], [address], 04/14/2024 18:28:56 04/14/2004/14/2024 COMPR EHENS RODOLFO METAB OLIC PANEL potassium 4.3 mmol/ L 3.5-5. 1 Not Available [facility] (Lab) [address] [place], [address], 04/14/2024 18:28:56 04/14/2004/14/2024 COMPR EHENS RODOLFO METAB OLIC PANEL chloride 101 mmol/ L 98-107 Not Available [facility] (Lab) [address] [place], [address], 04/14/2024 18:28:56 04/14/2004/14/2024 COMPR EHENS RODOLFO METAB OLIC PANEL carbon dioxide 23 mmol/ L 22-30 Not Available [facility] (Lab) [address] [place], [address], 04/14/2024 18:28:56 04/14/2004/14/2024 COMPR EHENS RODOLFO METAB OLIC PANEL anion gap 15.3 mmol/ L 14-22 Not Available [facility] (Lab) [address] [place], [address], 04/14/2024 18:28:56 04/14/20 24 04/14/2024 COMPR EHENS RODOLFO METAB OLIC PANEL glucose 165 mg/dL 70-99 high Not Available [facility] (Lab) [address] [place], [address], 04/14/2024 18:28:56 04/14/2004/14/2024 COMPR EHENS RODOLFO METAB OLIC PANEL BUN 21 mg/dL 8-19 high Not Available [facility] (Lab) [address] [place], [address], 04/14/2024 18:28:56 04/14/2004/14/2024 COMPR EHENS RODOLFO METAB OLIC PANEL creatinine 0.55 mg/dL 0.66-1 .25 low Not Available [facility] (Lab) [address] [place], [address], 04/14/2024 18:28:56 04/14/2004/14/2024 COMPR EHENS RODOLFO METAB OLIC PANEL GFR >60 Refer ence Range : [place] ge GFR Healt hy Adult : >60 mL/mi n/1.7 3 m2 Chron ic Kidne y Disea se: 15-60 mL/mi n/1.7 3 m2 Kidne y Failu re: <15/m L/min /1.73 m2 www.n iddk. nih.g ov The MDRD study equat ion has not been valid ated in child samuel <18 years of age; pregn ant women ; the elder ly >85 years of age; or in some racia l or ethni c subgr oups, such as Hispa nics. Outsi de the valid ated tammie eters , estim ated GFR is less accur ate, requi ring clini wei judgm ent on a case- by-ca se basis . Clini wei inter preta tion for other races and ages must be made by the clini roselia. The MDRD study equat ion has not been valid ated for the evalu ation of serum creat inine relat ed to nutri ashleigh l statu s or medic ation usage . For perso ns <18 years of age, a pedia tric GFR calcu lator is avail able on the [facility] websi te: https ://jaleel chavez.ting al/shari ofess ional s/kdo qi/gf r_cal culat or Not Available [facility] (Lab) [address] [place], [address], 04/14/2024 18:28:56 04/14/2004/14/2024 COMPR EHENS RODOLFO METAB OLIC PANEL alkaline phosphatase 109 U/L 38-126 Not Available [facility] (Lab) [address] [place], [address], 04/14/2024 18:28:56 04/14/2004/14/2024 COMPR EHENS RODOLFO METAB OLIC PANEL alanine aminotransfe rase 43 U/L 0-35 high Not Available [facility] (Lab) [address] [place], [address], 04/14/2024 18:28:56 04/14/2004/14/2024 COMPR EHENS RODOLFO METAB OLIC PANEL aspartate aminotransfe rase 28 U/L 15-37 Not Available [facility] (Lab) [address] [place], [address], 04/14/2024 18:28:56 04/14/2004/14/2024 COMPR EHENS RODOLFO METAB OLIC PANEL bilirubin, total 0.50 mg/dL 0.20-1 .30 Not Available [facility] (Lab) [address] [place], [address], 04/14/2024 18:28:56 04/14/2004/14/2024 COMPR EHENS RODOLFO METAB OLIC PANEL calcium 9.9 mg/dL 8.4-10 .2 Not Available [facility] (Lab) [address] [place], [address], 04/14/2024 18:28:56 04/14/20 24 04/14/2024 COMPR EHENS RODOLFO METAB OLIC PANEL total protein 6.4 g/dL 6.3-8. 2 Not Available [facility] (Lab) [address] [place], [address], 04/14/2024 18:28:56 04/14/2004/14/2024 COMPR EHENS RODOLFO METAB OLIC PANEL albumin 4.4 g/dL 3.4-5. 0 Not Available [facility] (Lab) [address] [place], [address], 04/14/2024 18:28:56 04/14/2004/14/2024 COMPR EHENS RODOLFO METAB OLIC PANEL globulin 2.0 g/dL 2.6-4. 2 low Not Available [facility] (Lab) [address] [place], [address], 04/14/2024 18:28:56 04/14/2004/14/2024 COMPR EHENS RODOLFO METAB OLIC PANEL A/G ratio 2.2 ratio 1.0-2. 0 high Not Available [facility] (Lab) [address] [place], [address], 04/14/2024 18:28:56 04/14/2004/14/2024 VITAM IN D 25-HY DROXY vd25oh 32.6 NG/mL 30-100 Vitam in D Statu s: Defic ient: <20 ng/mL Insuf ficie nt: 20-29 ng/mL Suffi cient : 30-10 0 ng/mL Not Available [facility] (Lab) [address] [place], [address], 04/14/2024 18:57:43 04/14/20 24 04/14/2024 TSH W/REF KAELYN FT4 TSH with reflex free T4 0.916 uIU/m L 0.465- 4.680 Not Available [facility] (Lab) [address] [place], [address], 04/14/2024 19:04:13 04/14/2004/14/2024 CBC/C OMPLE TE BLD COUNT W/DIF F white blood cells 15.6 x10'3 /uL 4.2-10 .8 high Not Available [facility] (Lab) [address] [place], [address], 04/14/2024 19:17:17 04/14/2004/14/2024 CBC/C OMPLE TE BLD COUNT W/DIF F red blood cells 4.56 x10'6 /uL 3.80-5 .20 Not Available [facility] (Lab) [address] [place], [address], 04/14/2024 19:17:17 04/14/2004/14/2024 CBC/C OMPLE TE BLD COUNT W/DIF F hemoglobin 13.3 g/dL 12.0-1 5.6 Not Available [facility] (Lab) [address] [place], [address], 04/14/2024 19:17:17 04/14/2004/14/2024 CBC/C OMPLE TE BLD COUNT W/DIF F hematocrit 41.2 % 35.7-4 5.7 Not Available [facility] (Lab) [address] [place], [address], 04/14/2024 19:17:17 04/14/2004/14/2024 CBC/C OMPLE TE BLD COUNT W/DIF F mean red cell volume 90.4 fL 82.0-9 9.0 Not Available [facility] (Lab) [address] [place], [address], 04/14/2024 19:17:17 04/14/2004/14/2024 CBC/C OMPLE TE BLD COUNT W/DIF F mean red cell hemoglobin 29.2 pg 27.0-3 3.0 Not Available [facility] (Lab) [address] [place], [address], 04/14/2024 19:17:17 04/14/2004/14/2024 CBC/C OMPLE TE BLD COUNT W/DIF F mean RBC HGB concentratio n 32.3 g/dL 31.0-3 6.0 Not Available [facility] (Lab) [address] [place], [address], 04/14/2024 19:17:17 04/14/2004/14/2024 CBC/C OMPLE TE BLD COUNT W/DIF F red cell distribution width 12.9 % 11.8-1 5.5 Not Available [facility] (Lab) [address] [place], [address], 04/14/2024 19:17:17 04/14/2004/14/2024 CBC/C OMPLE TE BLD COUNT W/DIF F platelets 254 x10'3 /uL 150-40 0 Not Available [facility] (Lab) [address] [place], [address], 04/14/2024 19:17:17 04/14/2004/14/2024 CBC/C OMPLE TE BLD COUNT W/DIF F mean platelet volume 10.7 fL 9.0-12 .4 Not Available [facility] (Lab) [address] [place], [address], 04/14/2024 19:17:17 04/14/2004/14/2024 CBC/C OMPLE TE BLD COUNT W/DIF F neutrophils 57 % 39.0-7 2.0 Not Available [facility] (Lab) [address] [place], [address], 04/14/2024 19:17:17 04/14/2004/14/2024 CBC/C OMPLE TE BLD COUNT W/DIF F lymphocytes 35 % 16.0-4 7.0 Not Available [facility] (Lab) [address] [place], [address], 04/14/2024 19:17:17 04/14/2004/14/2024 CBC/C OMPLE TE BLD COUNT W/DIF F monocytes 8 % 5.0-12 .0 Not Available [facility] (Lab) [address] [place], [address], 04/14/2024 19:17:17 04/14/2004/14/2024 CBC/C OMPLE TE BLD COUNT W/DIF F neutrophils, absolute count 7.96 x10'3 /uL 1.5-8. 0 Not Available [facility] (Lab) [address] [place], [address], 04/14/2024 19:17:17 04/14/2004/14/2024 CBC/C OMPLE TE BLD COUNT W/DIF F nucleated red blood cells 0.0 % -0 Not Available [facility] (Lab) [address] [place], [address], 04/14/2024 19:17:17 04/14/2004/14/2024 CBC/C OMPLE TE BLD COUNT W/DIF F NRBC# 0.00 x10'3 /uL Not Available [facility] (Lab) [address] [place], [address], 04/14/2024 19:17:17 04/14/2004/14/2024 VITAM IN B12 (TAHIR DESMOND ) vb12 718 pg/mL 239-93 1 Not Available [facility] (Lab) [address] [place], [address], 04/14/2024 19:47:06 04/14/2004/14/2024 FOLAT E, SERUM /PLAS MA folate >20.0 NG/mL 2.76-2 0.0 Not Available [facility] (Lab) [address] [place], [address], 04/14/2024 19:47:07 04/14/20 24 04/14/2024 HEMOG LOBIN A1C HA1C 8.9 % 4.0-6. 0 high Diabe danay Scree dani Crite sánchez: <5.7% Consi stent with absen ce of diabe danay 5.7-6 .4% Consi stent with incre ased risk for diabe danay (pred iabet es) >OR=6 .5% Consi stent with diabe danay REFER ENCE: Diabe danay Care 2016, 39(Mccloud ppl.1 ):s13 -s22 Not Available [facility] (Lab) [address] [place], [address], 04/14/2024 21:52:36 09/03/19 24 09/02/2023 CT, abdom en + pelvi s, w/ contr ast No observ ation record ed. [address], [address], 12/16/2023 11:52:16 10/29/19 24 10/26/2023 US, echoc ardio gram No observ ation record ed. [address] [facility] [address], [place], [address], 12/16/2023 11:50:49 12/07/19 24 12/07/2023 XR, chest , 2 view No observ ation record ed. [address], [address], 12/16/2023 11:48:14 02/03/20 24 02/03/2024 XR, chest No observ ation record ed. [email or web address], [address], 06/12/2024 08:35:33 02/11/20 02/05/2024 compl ete PFT w/ post [facility] hodil ator rosibel metry * No observ ation record ed. [facility] ([facility] Sched[facility]) [address] [place], [address], 02/11/2024 10:47:23 02/25/20 24 02/25/2024 XR, chest No observ ation record ed. [address] [place], [address], 06/12/2024 08:40:54 02/25/20 24 02/25/2024 CT, abdom en + pelvi s, w/ contr ast No observ ation record ed. [address] [place], [address], 06/12/2024 08:41:30 03/11/20 24 02/05/2024 compl ete PFT w/ post [facility] hodil ator rosibel metry * No observ ation record ed. [address] ([facility] Call Scheduling) [address] [place], [address], 06/12/2024 08:42:24 04/28/20 24 04/28/2024 imagi ng/di agnos tic resul t No observ ation record ed. [address] [facility] [address], [place], [address], 06/12/2024 09:04:07 06/29/19 25 06/29/2024 imagi ng/di agnos tic resul t No observ ation record ed. [facility] [address] [place], [address], 06/29/2024 21:59:29 Result Notes None recorded. 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 Active 2023 Hernan tapia MD [address], [place], [address] , [facility] 4 11:14:35 Vitamin D deficiency 57929466 Active 2023 Hernan tapia MD [address], [place], [address] , [facility] 4 11:15:48 Gastroesop hageal reflux disease 934632878 Active 2023 Emily Silva MA [facility], [facility] 4 16:52:37 Hypertroph y of vulva 17484394 Active 2023 Hernan tapia MD [address], [place], [address] , [facility] 4 12:01:44 Serum vitamin B12 below reference range 070432927 Active 2023 Hernan tapia MD [address], [place], [address] , [facility] 4 12:01:44 Hyperlipid emia 46754731 Active 2023 Hernan tapia MD [address], [place], [address] , [facility] 4 12:04:41 Pruritic rash 75084810 Active 2023 Hernan tapia MD [address], [place], [address] , [facility] [employer] [facility] 4 15:58:39 Tachycardi a 6164368 Active 2023 Hernan tapia MD [address], [place], [address] , [facility] 4 15:58:39 Gastroesop hageal reflux disease without esophagiti s 451593119 Active 2023 Hernan tapia MD [address], [place], [address] , [facility] 4 15:58:39 Type 2 diabetes mellitus without complicati on 212748655 Active 2023 Hernan tapia MD [address], [place], [address] , [facility] 4 15:58:39 Asthma 596761437 Active 2023 Hernan tpaia MD [address], [place], [address] , [facility] 4 15:58:39 Pain of bilateral hip joints 9789603608645 9100 Active 2023 Hernan tapia MD [address], [place], [address] , [facility] 4 15:58:39 Chest pain 84909544 Active 2023 Hernan tapia MD [address], [place], [address] , [facility] 4 16:11:32 Dyspnea on exertion 77532383 Active 2023 Hernan tapia MD [address], [place], [address] , [facility] 4 16:38:14 Leukocytos is 653331983 Active 2023 Hernan tapia MD [address], [place], [address] , [facility] [employer] 4 14:19:47 Generalize d anxiety disorder 68592448 Active 2021 Not Available [facility] 3 12:23:27 Mixed hyperlipid emia 366031720 Active 2021 Not Available [facility] 3 12:23:27 Angioedema 77535481 Active 2022 Not Available [facility] 3 12:23:27 Well controlled type 2 diabetes mellitus 996811568 Active 2021 Not Available [facility] 3 12:23:27 Notes:Medical History: Angio edema ADHD/Anxiety Bilateral tinnitus Rhinitis Eosinophils 120/uL IgE 8 IU/mL Hypogammaglobulinemia (total, IgG2) AAT PiMM 142 mg% Obesity Sinus tachycardia with EF 65% Mixed hyperlipidemia T2DM MARILYN Urge urinary incontinence Vit D deficiency Thoracic kyphoscoliosis Bilateral trochanteric bursitis Procedure History: Thoracolumbar fusion 2014 EGD with (-) biopsies 2023 Occupational History: Disabled Some problems listed in Documents: #[id number], #[id number] could not be added to this patient's chart. Please review these documents and add these problems to the patient's chart manually as needed. Problem Notes None recorded. Procedures Surgical History Date Name Laterality Status Provider Name and Address Organization Details Recorded Time 3 Medicare Wellness CPT Code, subsequent completed JHONATHAN Estevez [address], [place], [address], [facility] [employer] 04/27/2023 13:17:16 Back Surgery completed Not Available [facility] 08/16/2022 04:29:31 Imaging Results Imaging Date Name Status LastModified by Organization Details LastModified Time 09/02/2023 CT, abdomen + pelvis, w/ contrast completed [address], [place], [address], 12/16/2023 11:52:16 10/26/2023 US, echocardiogram completed [address] [facility] [address], [place], [address], 12/16/2023 11:50:49 12/07/2023 XR, chest, 2 view completed [address], [place], [address], 12/16/2023 11:48:14 02/03/2024 XR, chest completed [address], [place], [address], 06/12/2024 08:35:33 02/05/2024 complete PFT w/ post bronchodilator spirometry* completed [facility] ([facility] Sched[facility]) [address] [place], [address], 02/11/2024 10:47:23 02/25/2024 XR, chest completed [address] [place], [address], 06/12/2024 08:40:54 02/25/2024 CT, abdomen + pelvis, w/ contrast completed [address] [place], [address], 06/12/2024 08:41:30 02/05/2024 complete PFT w/ post bronchodilator spirometry* completed [address] ([facility] Scheduling) [address] [place], [address], 06/12/2024 08:42:24 04/28/2024 imaging/diagnostic result completed [address] [facility] [address], [place], [address], 06/12/2024 09:04:07 06/29/2024 imaging/diagnostic result active [facility] [address] [place], [address], 06/29/2024 21:59:29 Procedure Notes None recorded. Medical Equipment None Reported. Allergies Allergen ID Allergen Name Allergen Category Reaction Reaction Severity Criticality Documentation Date Start Date Code Code System Note Provider Name and Address Organization Details Recorded Time 83188 black pepper preparati on food Not available Not available Not available 01/29/2023 06434 4 RxNorm ANIKA Matias, [facility] [employer] [facility] 3 11:40:43 6541 Robitussi n medicatio n Not available Not available Not available 08/16/2022 09652 2 RxNorm Not Available [facility] 3 04:39:19 6542 ibuprofen / pseudoeph edrine medicatio n Not available Not available Not available 08/16/2022 36367 2 RxNorm Not Available [facility] 3 04:39:19 6543 Chlor-Tri [place] medicatio n Not available Not available Not available 08/16/2022 00971 4 RxNorm Not Available [facility] 3 04:39:19 6544 azithromy jayshree medicatio n Not available Not available Not available 08/16/2022 85955 RxNorm Not Available [facility] 3 04:39:19 [address]8699 prednison e medicatio n Not available Not available Not available 12/26/2023 8640 RxNorm RAMAN Martino, [facility] [employer] [facility] [employer] 4 12:24:28 Medications Name Sig Start Date Stop Date Status Note LastModified by Organization Details LastModified Time cyclobenzap rine 10 mg tablet TAKE 1 TABLET BY MOUTH EVERY 8 HOURS 03/29 completed Not Available Not Available Not Available amoxicillin 500 mg capsule Take 1 capsule 3 times a day by oral route for 7 days. active Not Available Not Available No t Available prednisone 10 mg tablet TAKE 1 TABLET BY MOUTH TWICE DAILY 04/23 completed Not Available Not Available Not Available venlafaxine ER 75 mg capsule,ext ended release 24 hr TAKE 1 CAPSULE BY MOUTH ONCE DAILY active Not Available Not Available No t Available clindamycin HCl 300 mg capsule TAKE 1 CAPSULE BY MOUTH EVERY 6 HOURS FOR 10 DAYS 06/13 completed Not Available Not Available Not Available albuterol sulfate 2.5 mg/3 mL (0.083 %) solution for nebulizatio n USE 1 VIAL IN NEBULIZER EVERY 4 TO 6 HOURS NEEDED PER THE ASTHMA ACTION PLAN 12/15 completed Not Available Not Available Not Available trazodone 50 mg tablet TAKE 1/2 TO 1 (ONE-HALF TO ONE) TABLET BY MOUTH ONCE DAILY AT BEDTIME NEEDED 03/29 completed Not Available Not Available Not Available cetirizine 10 mg tablet Take 1 tablet every day by oral route. 03/29 completed Not Available Not Available Not Available ibuprofen 800 mg tablet TAKE 1 TABLET BY MOUTH EVERY 6 TO 8 HOURS NEEDED FOR PAIN AND FEVER 12/15 completed Not Available Not Available Not Available sucralfate 1 gram tablet TAKE 1 TABLET BY MOUTH ONCE DAILY BEFORE MEAL(S) AND AT BEDTIME active Not Available Not Available No t Available ondansetron HCl 4 mg tablet TAKE 1 TABLET BY MOUTH EVERY 8 HOURS active Not Available Not Available No t Available famotidine 40 mg tablet TAKE 1 TABLET BY MOUTH ONCE DAILY AT BEDTIME active Not Available Not Available No t Available prednisone 20 mg tablet TAKE 2 TABLETS BY MOUTH ONCE DAILY FOR 5 DAYS 11/20 completed Not Available Not Available Not Available ciprofloxac in 500 mg tablet TAKE 1 TABLET BY MOUTH EVERY 12 HOURS FOR 7 DAYS 04/23 completed Not Available Not Available Not Available omeprazole 40 mg capsule,del ayed release TAKE ONE CAPSULE BY MOUTH DAILY 01/29 completed Not Available Not Available Not Available triamcinolo ne acetonide 0.1 % topical cream APPLY A THIN LAYER TO THE AFFECTED AREA(S) TOPICALLY TWICE DAILY NEEDED 03/29 completed Not Available Not Available Not Available dexmethylph enidate 5 mg tablet TK 1 T PO QAM 06/03 completed Not Available Not Available Not Available lamotrigine 25 mg tablet 06/13 completed Not Available Not Available Not Available dexmethylph enidate 10 mg tablet TK 1 T PO QAM AND 1 T AT NOON 06/03 completed Not Available Not Available Not Available ofloxacin 0.3 % ear drops INSTILL 10 DROPS INTO EACH EAR TWICE DAILY FOR 14 DAYS 11/20 completed Not Available Not Available Not Available amoxicillin 875 mg tablet TAKE 1 TABLET BY MOUTH TWICE DAILY 12/05 completed Not Available Not Available Not Available omeprazole 10 mg capsule,del ayed release TAKE 1 CAPSULE BY MOUTH ONCE DAILY NEEDED 12/15 completed Not Available Not Available Not Available lorazepam 0.5 mg tablet TAKE 1 TABLET BY MOUTH THREE TIMES DAILY active Not Available Not Available No t Available dexamethaso ne 1 mg tablet TAKE 1 TABLET BY MOUTH AT 10PM BEFORE 8AM CORTISOL. active Not Available Not Available No t Available meclizine 25 mg tablet TAKE 1 TABLET BY MOUTH TWICE DAILY 03/29 completed Not Available Not Available Not Available oseltamivir 75 mg capsule TAKE 1 CAPSULE BY MOUTH EVERY 12 HOURS FOR 5 DAYS 08/17 completed Not Available Not Available Not Available nystatin 100,000 unit/gram topical cream APPLY CREAM TOPICALLY TO AFFECTED AREA TWICE DAILY 2024 active Not Available Not Available Not Avai lable omeprazole 20 mg capsule,del ayed release TAKE 1 CAPSULE BY MOUTH ONCE DAILY IN THE MORNING active Not Available Not Available No t Available diclofenac sodium 75 mg tablet,gely yed release TAKE 1 TABLET BY MOUTH TWICE DAILY active Not Available Not Available No t Available aspirin 81 mg tablet Take by oral route. 10/14 completed Not Available Not Available Not Available mupirocin 2 % topical ointment APPLY 1 GRAM TOPICALLY TO THE AFFECTED AREA(S) 4 TIMES DAILY active Not Available Not Available No t Available epinephrine 0.3 mg/0.3 mL injection, auto-inject or INJECT CONTENTS OF 1 PEN NEEDED FOR ALLERGIC REACTION MAY REPEAT ONCE 03/29 completed Not Available Not Available Not Available Pepcid 20 mg tablet Take 1 tablet twice a day by oral route. 09/24 completed Not Available Not Available Not Available methylpredn isolone 4 mg tablets in a dose pack TAKE BY MOUTH DIRECTED ON INSIDE OF PACKAGE 12/25 completed Not Available Not Available Not Available albuterol sulfate HFA 90 mcg/actuati on aerosol inhaler INHALE 2 PUFFS BY MOUTH 4 TIMES DAILY NEEDED FOR SHORTNESS OF BREATH FOR WHEEZING 2024 active Not Available Not Available Not Avai lable ondansetron 4 mg disintegrat ing tablet DISSOLVE 1 TABLET IN MOUTH EVERY 8 HOURS NEEDED FOR NAUSEA AND VOMITING 12/15 completed Not Available Not Available Not Available fluticasone propionate 50 mcg/actuati on nasal spray,suspe nsion [place] 2 sprays every day by intranasa l route. 12/25 completed Not Available Not Available Not Available metformin ER 500 mg tablet,exte nded release 24 hr Take 1 tablet twice a day by oral route before meals for 90 days. active Not Available Not Available No t Available lamotrigine 100 mg tablet TAKE 1 TABLET BY MOUTH TWICE DAILY active Not Available Not Available No t Available naproxen 500 mg tablet TAKE 1 TABLET BY MOUTH EVERY 12 HOURS NEEDED WITH FOOD FOR PAIN 12/15 completed Not Available Not Available Not Available mometasone 0.1 % topical cream APPLY A THIN LAYER TO THE AFFECTED AREA(S) BY TOPICAL ROUTE ONCE DAILY 03/29 completed Not Available Not Available Not Available amoxicillin 875 mg-potassiu m clavulanate 125 mg tablet TAKE 1 TABLET BY MOUTH EVERY 12 HOURS FOR 10 DAYS 04/23 completed Not Available Not Available Not Available neomycin-po lymyxin-hyd rocort 3.5 mg-10,000 unit/mL-1 % ear drops,susp INSTILL 3 DROPS INTO EACH EAR 4 TIMES DAILY FOR 7 DAYS 09/24 completed Not Available Not Available Not Available rosuvastati n 20 mg tablet TAKE 1 TABLET BY MOUTH ONCE DAILY active Not Available Not Available No t Available nitrofurant oin monohydrate /macrocryst als 100 mg capsule TAKE 1 CAPSULE BY MOUTH EVERY 12 HOURS FOR 10 DAYS 03/16 completed Not Available Not Available Not Available fenofibrate 160 mg tablet Take 1 tablet every day by oral route at bedtime for 90 days. 03/29 completed Not Available Not Available Not Available Benadryl 03/29 completed Not Available Not Available Not Available BD Ultra-Fine Short Pen Needle 31 gauge x 5/16 USE 1 ONCE DAILY 12/15 completed Not Available Not Available Not Available BD Ultra-Fine Original Pen Needle 29 gauge x 1/2 USE 1 PEN NEEDLE ONCE DAILY 12/15 completed Not Available Not Available Not Available OneTouch Verio test strips USE 1 STRIP TO CHECK GLUCOSE ONCE DAILY active Not Available Not Available No t Available Victoza 3-Librado 0.6 mg/0.1 mL (18 mg/3 mL) subcutaneou s pen injector INJECT 0.6MG SUBCUTANE OUSLY ONCE DAILY active Not Available Not Available No t Available Farxiga 10 mg tablet TAKE 1 TABLET BY MOUTH ONCE DAILY active Not Available Not Available No t Available Trulicity 1.5 mg/0.5 mL subcutaneou s pen injector Inject 1.5 mg every week by subcutane ous route at dinner for 90 days. 12/05 completed Not Available Not Available Not Available Trulicity 0.75 mg/0.5 mL subcutaneou s pen injector Inject 0.75 mg every week by subcutane ous route at dinner for 30 days. 12/05 completed Not Available Not Available Not Available Arnuity Ellipta 200 mcg/actuati on powder for inhalation 03/29 completed Not Available Not Available Not Available Ashlyna 0.15 mg-30 mcg (84)/10 mcg(7) tablets,3 month dose pack TAKE 1 TABLET BY MOUTH ONCE DAILY 09/24 completed Not Available Not Available Not Available Corlanor 5 mg tablet TAKE 1 TABLET BY MOUTH TWICE DAILY active Not Available Not Available No t Available OneTouch Verio Flex Meter USE 1 TO CHECK GLUCOSE ONCE DAILY active Not Available Not Available No t Available OneTouch Delica Plus Lancet 33 gauge USE 1 TO CHECK GLUCOSE ONCE DAILY active Not Available Not Available No t Available Fluzone Quad (PF) 60 mcg (15 mcg x 4)/0.5 mL IM syringe ADM 0.5ML IM UTD 11/20 completed Not Available Not Available Not Available Pogo Automatic Test Cartridge 30 gauge combo pack use to test blood glucose twice a day 2023 active Not Available Not Available Not Avai lable Mounjaro 5 mg/0.5 mL subcutaneou s pen injector INJECT 5 MG UNDER THE SKIN ONCE A WEEK 01/14 completed Not Available Not Available Not Available Mounjaro 2.5 mg/0.5 mL subcutaneou s pen injector INJECT 0.5 ML (2.5MG TOTAL) UNDER THE SKIN EVERY 7 DAYS AFTER 4 WEEKS,INC REASE TO 5 MG WEEKLY 09/24 completed Not Available Not Available Not Available Ozempic 0.25 mg or 0.5 mg (2 mg/3 mL) subcutaneou s pen injector INJECT 1/2 (ONE-HALF ) MG SUBCUTANE OUSLY ONCE A WEEK 01/14 completed Not Available Not Available Not Available Vitals Date Recorded Body height Body mass index (BMI) Body weight Body temperature Heart rate Systolic blood pressure Diastolic blood pressure Provider Name and Address Organization Details Last Updated DateTime 4 163.83 cm 29.6 kg/m2 14830.6 6 g 97.6 [degF] 78 /min 110 mm[Hg] 60 mm[Hg] CHARO Cabral [facility] [employer] [facility] 4 10:44:15 Date Recorded Body height Body mass index (BMI) Body weight Body temperature Heart rate Oxygen saturation Oxygen saturation in Arterial blood by Pulse oximetry Systolic blood pressure Diastolic blood pressure Provider Name and Address Organization Details Last Updated DateTime 4 163.83 cm 30.4 kg/m2 72085.6 3 g 97.9 [degF] 87 /min 97 % 97 % 108 mm[Hg] 64 mm[Hg] Roselyn Whitehead MA [facility] [employer] [facility] 4 12:31:07 Date Recorded Heart rate Respiratory rate Provider N chalino and Address Organization Details Last Updated DateTime 12/26/2023 87 /min 15 /min Gray Zeng MD [address] [place] [address], [address], [facility] [employer] [facility] 12/26/2023 13:00:37 Date Recorded Body height Body mass index (BMI) Body weight Body temperature Heart rate Systolic blood pressure Diastolic blood pressure Provider Name and Address Organization Details Last Updated DateTime 4 163.83 cm 30.8 kg/m2 22343.8 1 g 97.5 [degF] 84 /min 110 mm[Hg] 64 mm[Hg] CHARO Cabral [facility] 4 11:50:02 Date Recorded Body height Body mass index (BMI) Body weight Body temperature Heart rate Oxygen saturation Oxygen saturation in Arterial blood by Pulse oximetry Systolic blood pressure Diastolic blood pressure Provider Name and Address Organization Details Last Updated DateTime 4 163.83 cm 30.6 kg/m2 50878.2 2 g 96.2 [degF] 92 /min 98 % 98 % 122 mm[Hg] 74 mm[Hg] Lili Martinez MA [facility] [employer] [facility] 4 16:22:19 Date Recorded Body height Body mass index (BMI) Body weight Respiratory rate Systolic blood pressure Diastolic blood pressure Provider Name and Address Organization Details Last Updated DateTime 4 163.83 cm 30.6 kg/m2 56861.2 2 g 16 /min 104 mm[Hg] 62 mm[Hg] Hernan grider MD [address], [place], [address], [facility] [employer] [facility] 4 09:41:51 Date Recorded Body temperature Heart rate Oxygen saturation Oxygen saturation in Arterial blood by Pulse oximetry Pain severity - 0-10 verbal numeric rating [Score] - Reported Provider Name and Address Organization Details Last Updated DateTime 4 98.4 [degF] 88 /min 98 % 98 % 0 Gm Vogt LPN [facility] [employer] [facility] 4 09:44:53 Social History Question Answer Notes LastModified by Organization Details LastModified Time Tobacco Smoking Status Former Smoker CHARO Stahl, [facility] [employer] [facility] 03/29/2023 12:51:30 Do You Have An Advance Directive? No [id number] Information not available 08/16/2022 What Is Your Level Of Alcohol Consumption? Occasional [id number] Information not available 08/16/2022 What Is Your Level Of Caffeine Consumption? Moderate Information not available 12/26/2023 How Much Tobacco Do You Chew? None [id number] Information not available 08/16/2022 In The 14 Days Before Symptom Onset, Have You Had Close Contact With A Laboratory-conf irmed COVID-19 While That Case Was Ill? No [id number] Information not available 08/16/2022 In The 14 Days Before Symptom Onset, Have You Had Close Contact With A Person Who Is Under Investigation For COVID-19 While That Person Was Ill? No MIGRATION.0301 [id number] Information not available 08/16/2022 Are You Currently Employed? No Disability Information not available 02/21/2024 What Type Of Diet Are You Following? REGULAR MIGRATION.0301 [id number] Information not available 08/16/2022 Which Illicit Or Recreational Drugs Have You Used? Marijuana MIGRATION.0301 433504 Information not available 08/16/2022 Do You Or Have You Ever Used E-cigarettes Or Vape? Current User Of Electronic Cigarettes Information not available 02/21/2024 Do You Have An Electrostatic Air Filter? No Information not available 12/26/2023 Have There Been Any Changes To Your Family Or Social Situation? No MIGRATION.0301 760095 Information not available 08/16/2022 What Is The Fluoride Status Of Your Home? Unknown MIGRATION.0301 065598 Information not available 08/16/2022 Are There Any Guns Present In Your Home? No MIGRATION.0301 912772 Information not available 08/16/2022 Do You Have A Humidifier? No Information not available 12/26/2023 Do You Use Insect Repellent Routinely? No MIGRATION.0301 088307 Information not available 08/16/2022 Where Do You Live? [facility] MIGRATION.0301 [id number] Information not available 08/16/2022 Do You Have Moisture Problems In Your Home? No Information not available 12/26/2023 What Was The Date Of Your Most Recent Tobacco Screening? 02/21/2024 Information not available 02/21/2024 Do You Have Any Pets? Yes MIGRATION.0301 861999 Information not available 08/16/2022 What Is Your Relationship Status? Single MIGRATION.0301 [id number] Information not available 08/16/2022 Do You Use Your Seat Belt Or Car Seat Routinely? Yes MIGRATION.0301 377366 Information not available 08/16/2022 Do You Have Smoke And Carbon Monoxide Detectors In Your Home? Yes MIGRATION.0301 310904 Information not available 08/16/2022 Are You Passively Exposed To Smoke? Yes MIGRATION.0301 298795 Information not available 08/16/2022 Do You Or Have You Ever Used Smokeless Tobacco? Never Used Smokeless Tobacco MIGRATION.0301 802435 Information not available 08/16/2022 Are There Any Smokers In Your House? No MIGRATION.0301 367018 Information not available 08/16/2022 Do You Feel Stressed (tense, Restless, Nervous, Or Anxious, Or Unable To Sleep At Night)? [id number] MIGRATION.0301 117076 Information not available 08/16/2022 Do You Use Any Illicit Or Recreational Drugs? Yes MIGRATION.[id number] Information not available 08/16/2022 Do You Use Sunscreen Routinely? No MIGRATION.030065110 Information not available 08/16/2022 Have You Recently Traveled Abroad? No MIGRATION.030508486 Information not available 08/16/2022 Have You Used IV Drugs? No Information not available 02/21/2024 Do You Have Any Dietary Restrictions? No MIGRATION.030216059 Information not available 08/16/2022 Do You Or Have You Ever Used Any Other Forms Of Tobacco Or Nicotine? Yes Information not available 02/21/2024 Sex: Female Functional Status Question Answer Note LastModified by Organizat ion Details LastModified Time What is your exercise level? Heavy daily walks MIGRATION.[id number] Information not available 08/16/2022 Mental Status None recorded. Family History Relationship Description Onset Age of this Age Resolved Age Notes LastModified by Organization Details LastModified Time Father Diabetes mellitus MIGRATION.121 [id number] Not available 08/16/2022 04:29:36 Mother Asthma [email or web address] Not available 03/2024 12:48:03 Paternal Grandmother Malignant neoplasm of lung [email or web address] Not available 2023 12:48:41 Notes:adopted Medical History Condition Response DIABETES, TYPE Y EYE PROBLEMS Y HEADACHES/MIGRAINES Y GI PROBLEMS Y HEART ARRHYTHMIA Y GERD/NAUSEA Y Gynecological History Statement/Question Response How many live births 0 Current Control Method None Date of LMP Obstetrics History GPAL:G 0 P 0 0 0 0 Type Value Multiple Births 0 Full Term 0 Induced 0 Spontaneous 0 Premature 0 Living 0 Ectopics 0 Total 0 Immunizations Vaccine Type Date Status Note Provider Nam e and Address Organization Details Recorded Time Influenza, split virus, trivalent, PF 04/23/2024 completed Hernan Madden MD [address] [facility], [facility] [address], [place], [address], [facility] 04/28/2024 14:50:20 Past Encounters Encounter ID Performer Location Encounter Start Date Encounter Closed Date Diagnosis/Indication Diagnosis SNOMED-CT Code Diagnosis ICD10 Code Diagnosis Note [id number] Cici Fuller MD _EUN_Zhen IGRATION_ DEFAULT_1 _1 , 10/14/2020 00:00:00 10/14/2020 11:37:57 [id number] Cici Fuller MD _ATHENA_M IGRATION_ DEFAULT_1 _1 , 01/20/2021 00:00:00 01/20/2021 11:25:30 [id number] [facility] _ATHENA_M IGRATION_ DEFAULT_1 _1 , 08/04/2021 00:00:00 08/04/2021 11:40:41 [id number] Hernan tapia MD S[facility] [address] [place] [phone] 12/05/2021 00:00:00 12/05/2021 16:21:18 [id number] [facility] _ATHENA_M IGRATION_ DEFAULT_1 _ , 02/23/2022 00:00:00 02/23/2022 12:57:51 [id number] Hernan tapia MD [facility] [address] [address] 03/06/2022 00:00:00 03/06/2022 16:52:26 [id number] [facility] [place] [address] [place], [place] [address] 06/13/2022 00:00:00 06/13/2022 18:11:57 [id number] JHONATHAN Estevez [facility] [address] [place] [address] 08/17/2022 12:10:09 08/17/2022 12:51:41 Asthma [id number] J45.909 on albuterol prnhas nebulizer at home Allergic rhinitis 463532 04 J30.9 on cetirizine and flonase Attention deficit hyperactivity disorder 083979293 F90.9 now following psychiatry - Adán at Dr. Patel's officeon lamictal Hypertrophy of vulva [address] Dolan patient was recommende d surgical eval, but pt is not interested in surgery at this time Tachycardia 4916441 R00. 0 follows cardiology - Dr. Cora Santamaria Type 2 peg betes mellitus without complication 517441731 E11.9 follows endocrinol ogy- Dr. Poornima Bernal, she self stopped her metformin Gastroesop hageal reflux disease without esophagitis 525207785 K21.9 has been on pepcid and omeprazole in the past, now off meds Generalize d anxiety disorder 66460815 F41.1 on effexor from endoalso follows psych as aboverecom mend she call them to discuss her increase in fear of abandonmen t, recommend counseling call office if any change in mood or behavior Eczema of external auditory canal 56134790 H60.549 on mometasone cream p.r.n.avoi d putting anything into the ears, avoid scratching call if no improvemen t after meds, we can send to ENT if no better Angioedema 27701320 T78. 3XXD she has Epipen for PRN use- she knows to go to ER or call 911 if she has to use itget appt with enrollment advisor- I stressed the importance of getting this done [id number] Hernan tapia MD [facility] [address] [facility], [address] [place] [address] 11/20/2022 11:28:40 11/20/2022 12:08:19 Asthma 009067030 J45.909 on albuterol prnhas nebulizer at home Allergic rhinitis 263249 04 J30.9 on cetirizine and flonase Attention deficit hyperactivity disorder 770847937 F90.9 now following psychiatry - Adán at Dr. Patel's officeon lamictal Hypertrophy of vulva [address] Dolan patient was recommende d surgical eval, but pt is not interested in surgery at this time Tachycardia 7457964 R00. 0 follows cardiology - Dr. Cora Santamaria Type 2 peg betes mellitus without complication 849467201 E11.9 follows endocrinol ogy- Dr. Poornima Bernal, she self stopped her metformin Gastroesop hageal reflux disease without esophagitis 424269157 K21.9 has been on pepcid and omeprazole in the pastrestar t omeprazole lifestyle measures for acid reduction discussed Generalize d anxiety disorder 75620864 F41.1 on effexor from endoalso follows psych as aboverecom mend she call them to discuss her increase in fear of abandonmen t, recommend counseling call office if any change in mood or behavior Eczema of external auditory canal 63846205 H60.549 on mometasone cream p.r.n.avoi d putting anything into the ears, avoid scratching call if no improvemen t after meds, we can send to ENT if no better Angioedema 58323990 T78. 3XXD she has Epipen for PRN use- she knows to go to ER or call 911 if she has to use itnow following enrollment advisor- Dr. Beverly- has followup in 2 weeks Epigastric pain 10926493 R10.13 as aboveER precaution s [id number] Hernan tapia MD [facility] [place] [address] [facility], [address] [place] [address] 12/22/2022 11:27:53 12/22/2022 11:46:04 Asthma 554568519 J45.909 on albuterol prnhas nebulizer at home Allergic rhinitis 711319 04 J30.9 on cetirizine and flonase Attention deficit hyperactivity disorder 544313167 F90.9 now following psychiatry - Adán at Dr. Patel's officeon lamictal Hypertrophy of vulva [address] Dolan patient was recommende d surgical eval, but pt is not interested in surgery at this time Tachycardia 6496934 R00. 0 follows cardiology - Dr. Cora Santamaria Type 2 peg betes mellitus without complication 057432475 E11.9 follows endocrinol ogy- Dr. Poornima Bernal, she self stopped her metformin Gastroesop hageal reflux disease without esophagitis 950329448 K21.9 on omeprazole - she is aware of side effects, risks, and benefits Take p.r.n. if ablelifest yle measures for acid reduction discussed Epigastric pain 70510713 R10.13 Now resolved after starting omeprazole Generalize d anxiety disorder 56102322 F41.1 on effexor from endoalso follows psych as aboverecom mend she call them to discuss her increase in fear of abandonmen t, recommend counseling call office if any change in mood or behavior Eczema of external auditory canal 68941109 H60.549 on mometasone cream p.r.n.avoi d putting anything into the ears, avoid scratching call if no improvemen t after meds, we can send to ENT if no better Angioedema 73754406 T78. 3XXD she has Epipen for PRN use- she knows to go to ER or call 911 if she has to use itnow following enrollment advisor- Dr. Beverly [facility] [id number] 9622862 M25.571 Get x-ray today, further plan based on result Continue ankle brace Can alternate Tylenol and ibuprofen OTC for pain ER for [id number] Cici Fuller MD [facility] [address] [place] [address] 01/29/2023 11:05:44 01/29/2023 12:29:48 Well controlled type 2 diabetes mellitus 346233254 E11.9 a1c of 6.9%- continue on metformin ER 500 mg BID, victoza 1.2 mg SQ daily, and farxiga 10 mg daily.Disc ussed carb counting and how to read food labels. Recommende d patient to utilize the diabetesfo [employer] from the ADA website to help with food preparatio n as this presents ideal carb content per meal so this will make carb counting much easier for patient. Recommende d she incorporat e natural insulin shot hole shooter s such as pears, apples, cinnamon, ramón and sweet potatoes to help mobilize her endogenous insulin. Recommende d up to 150 minutes of moderate level activity/e xercise weekly. Insect bite reaction 402 998861 T63.481A Refill mometasone cream for recent insect bite reaction. Spent up to 25 minutes preparing to see the patient (eg, review of tests), obtaining and/or reviewing separately obtained history, performing a medically appropriat e examinatio n and evaluation , counseling and educating the patient, ordering medication s, tests, along with documentin g clinical informatio n in the electronic health record, bouchra guillaume interpreti ng results and communicat ing results to the patient. Patient can be followed by PCP - she/he is aware of my resignatio n and last day of March 30. If needed his/her PCP can refer patient to another endocrinol ogist in the area. All questions /concerns answered and refills necessary at visit today. [id number] Luciano Spann MD [facility] [place] [address] [place] [address] 03/29/2023 11:49:57 04/09/2023 11:01:51 Pain of right hip joint 9847020934 48892 M25.751 [id number] Hernan tapia MD S_[facility] Internal Med [facility] 15 [address] [facility], [facility] [address] [place] [address] 04/27/2023 11:37:24 04/27/2023 12:12:44 Asthma 723981949 J45.909 on albuterol prnhas nebulizer at home Allergic rhinitis 274432 04 J30.9 on cetirizine and flonase Attention deficit hyperactivity disorder 026998958 F90.9 now following psychiatry - Adán at Dr. Patel's officeon lamictal Hypertrophy of vulva [address] Dolan patient was recommende d surgical eval, but pt is not interested in surgery at this time Tachycardia 0191719 R00. 0 follows cardiology - Dr. Cora Santamaria Type 2 peg betes mellitus without complication 621819403 E11.9 follows endocrinol ogy- Dr. Poornima Bernal, she self stopped her metformin Gastroesop hageal reflux disease without esophagitis 485423932 K21.9 on omeprazole , add famotidine at hs- she is aware of side effects, risks, and benefitsTa ke p.r.n. if ablelifest yle measures for acid reduction discussed- she must stop drinking the energy drinks!ref erral to GI per her request Generalize d anxiety disorder 22785896 F41.1 on effexor from psychrecom mend she call them to discuss her increase in fear of abandonmen t, recommend counseling call office if any change in mood or behavior Eczema of external auditory canal 26192717 H60.549 on mometasone cream p.r.n.avoi d putting anything into the ears, avoid scratching call if no improvemen t after meds, we can send to ENT if no better Angioedema 16888080 T78. 3XXD she has Epipen for PRN use- she knows to go to ER or call 911 if she has to use itnow following enrollment advisor- Dr. Beverly Adult [facility] th examination 688881782 Z00.00 Screening for disorder 110437708 Z13.9 [id number] Luciano Spann MD [facility] [place] [address] [place] [address] 05/03/2023 14:06:36 05/14/2023 10:57:30 Pain of bilateral hip joints 1554872576 9881848 M25.551 M25.096 [id number] Hernan tapia MD [facility] [address] [facility], [facility] [address] [place] [address] 09/25/2023 10:23:30 09/25/2023 11:21:00 Screening - NAD 531217675 Z13.9 Get yearly flu shot, tdap vaccineCan do COVID 19 vaccine and its boosters Get WWE with her OB RTC in 3 months, do labs, ER if worse, she and her mother did verbalize her understand ing of the above Allergic rhinitis 567406 04 J30.9 On flonase, does well Attention deficit hyperactivity disorder 392603807 F90.9 On lamotrigin e 100mg bidSees psychiatry Hypertrophy of vulva 169 00148 N90.60 Sees her OB Tachycardia 9482269 R00. 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, now does well, no complaints Hyperlipid emia screening 323893855 Z13.220 Vitamin D deficiency 347 52771 E55.9 Serum dayami min B12 below reference range 862200430 R79.89 Asthma 754568865 J45.90 9 On HHNsOn albuterol, renewed HFA 09/25/2023 [id number] Gray Zeng MD [facility] [address] 12/26/2023 11:52:34 12/27/2023 09:50:00 Dyspnea on exertion 60226417 R06.09 R05.9 T78.40XA D89.9 [id number] Hernan tapia MD [facility] Internal [facility] [address] [place] [address] 01/15/2024 11:22:27 01/15/2024 12:43:09 Screening - NAD 555162489 Z13.9 Get yearly flu shot, tdap vaccineCan do COVID 19 vaccine and its boosters Get WWE with her OB RTC in 3 months, do labs, ER if worse, she and her mother did verbalize her understand ing of the above Allergic rhinitis 435713 04 J30.9 On flonase, does well Attention deficit hyperactivity disorder 993445047 F90.9 On lamotrigin e 100mg bidSees psychiatry Hypertrophy of vulva 169 52212 N90.60 Sees her OB Tachycardia 5498584 R00. [address] Fariha Harper on corlanor 5mg bid, does well with this, see Dr Fariha ARMENTA referred 01/15/2024 Type 2 peg betes mellitus without complication 739035479 E11.[address] Fuller in the pastOn Farxiga 10mg dailyOn metformin ER 500mg dailyNot on Mounjaro 5mg weekly as this caused her to have menorrhagi a, now much improvedGe t labs Generalize d anxiety disorder 65526189 F41.1 On venlafaxin e ER 75mg dailyOn lamotrigin e 100mg bidNot suicidal or homicidalS ees Dr Patel's [employer] INS[employer]OR Gastroesop hageal reflux disease without esophagitis 542794876 K21.9 On famotidine take as neededOn omeprazole 10mg daily take PRNOn sucralfate EGD 07/10/2023 : Dr Lott Gynecologi c examination 95509337 Z01.419 Kyphoscoli osis deformity of spine 897748027 M41.80 S/p surgery at age 18 years, now does well, no complaints Vitamin D deficiency 347 29737 E55.9 Serum dayami min B12 below reference range 522930132 R79.89 Asthma 724868445 J45.90 9 On HHNsOn albuterol, renewed HFA 09/25/[address] Zeng 02/05/2024 Hyperlipidemia 17070487 E78.5 On rosuvastat in 20mg dailyGet labs Pruritic rash 03442682 L 28.2 Was in the yard and noted she had 'bug bites', now getting better is applying triple ointment and 1% hydrocorti soneNotify if any redness or weeping noted Pain of bi lateral hip joints 1886735192 1246838 M25.[address] Spann and Dr Oquendo vised to take NSAIDs very sparingly! Referred again [id number] Hernan tapia MD [facility] [address] [facility], [facility] [address] [place] [address] 02/21/2024 16:14:25 02/21/2024 17:17:00 Screening - NAD 161498874 Z13.9 Get yearly flu shot, tdap vaccineCan do COVID 19 vaccine and its boosters Get WWE with her OB RTC in 3 months, do labs, ER if worse, she and her mother did verbalize her understand ing of the above Allergic rhinitis 482750 04 J30.9 On flonase, does well Attention deficit hyperactivity disorder 962370630 F90.9 On lamotrigin e 100mg bidSees psychiatry Hypertrophy of vulva 169 58815 N90.60 Sees her OB Tachycardia 9718991 R00. [address] Fariha BURRELLJosue on corlanor 5mg bid, does well with this, see Dr Fariha ARMENTA referred 01/15/2024 , 02/21/2024 Type 2 peg betes mellitus without complication 087171593 E11.[address] Fuller in the pastOn Farxiga 10mg dailyOn metformin ER 500mg dailyNot on Mounjaro 5mg weekly as this caused her to have menorrhagi a, now much improvedGe t labs Generalize d anxiety disorder 29408416 F41.1 On venlafaxin e ER 75mg dailyOn lamotrigin e 100mg bidNot suicidal or homicidalS ees Dr Patel's [employer]ELD INSPECTOR Gastroesop hageal reflux disease without esophagitis 992685679 K21.9 On famotidine take as neededOn omeprazole 10mg daily take PRNOn sucralfate EGD 07/10/2023 : Dr Lott Gynecologi c examination 33420306 Z01.419 Kyphoscoli osis deformity of spine 689967113 M41.80 S/p surgery at age 18 years, now does well, no complaints Vitamin D deficiency 347 07069 E55.9 Serum dayami min B12 below reference range 959061668 R79.89 Asthma 566981113 J45.90 9 On HHNsOn albuterol, renewed HFA 09/25/[address] Zeng 02/05/2024 Hyperlipidemia 83161492 E78.5 On rosuvastat in 20mg dailyGet labs Pruritic rash 07378882 L 28.2 Was in the yard and noted she had 'bug bites', now getting better is applying triple ointment and 1% hydrocorti soneNotify if any redness or weeping noted Pain of bi lateral hip joints 0951979391 0922123 M25.[address] Spann and Dr Jere duncan to take NSAIDs very sparingly! Referred again Seen in [facility] ergency clinic 704685400 Z76.89 ER at [facility] [place] for chest pain Chest pain 30971687 R07. 9 ER at [facility] 02/03/2024 COVID 19/flu/RSV /XR chest: NegativeD- dimer: NegativeBN P/Trop: NegWBC elevatedDo es well nowWill Dyspnea on exertion [address] Zeng 12/26/2023 PFT 02/05/2024 [id number] Hernan tapia MD [facility] Primary Care [address] [facility] [address] [place] [address] 04/23/2024 09:34:28 04/23/2024 10:34:40 Screening - NAD 844048966 Z13.9 Get yearly flu shot, tdap vaccineCan do COVID 19 vaccine and its boosters Get WWE with her OB RTC in 2 months, do labs, ER if worse, she and her mother did verbalize her understand ing of the above Allergic rhinitis 656523 04 J30.9 On flonase, does well Attention deficit hyperactivity disorder 652557955 F90.9 On lamotrigin e 100mg bidSees psychiatry Hypertrophy of vulva 169 19306 N90.60 Sees her OB Tachycardia 0633831 R00. [address] Fariha ARMENTAOn corlanor 5mg bid, does well with this, see Dr Fariha ARMENTA referred 01/15/2024 , 02/21/2024 Type 2 peg betes mellitus without complication 603261905 E11.[address] Fuller in the past On Farxiga 10mg dailyOn metformin ER 500mg dailyDoes not want to get on insulin, more diet and exercise is needed Not on Mounjaro 5mg weekly as this caused her to have menorrhagi a, now much improvedGe t labs Generalize d anxiety disorder 16112534 F41.1 On venlafaxin e ER 75mg dailyOn lamotrigin e 100mg bidNot suicidal or homicidalS ees Dr Patel's [employer] FIELD INSPECTOR Gastroesop hageal reflux disease without esophagitis 718893803 K21.9 On famotidine take as neededOn omeprazole 10mg daily take PRNOn sucralfate EGD 07/10/2023 : Dr Lott Gynecologi c examination 32511593 Z01.419 Kyphoscoli osis deformity of spine 240349550 M41.80 S/p surgery at age 18 years, now does well, no complaints Vitamin D deficiency 347 02088 E55.9 Serum daaymi min B12 below reference range 479104812 R79.89 Asthma 893993821 J45.90 9 On HHNsOn albuterol, renewed HFA 09/25/[address] Zeng Hyperlipidemia 97257943 E78.5 On rosuvastat in 20mg daily, increase to 40mg dailyGet labs Pruritic rash 14801092 L 28.2 Was in the yard and noted she had 'bug bites', now getting better is applying triple ointment and 1% hydrocorti soneNotify if any redness or weeping noted OV 04/23/2024 : Rash noted on the external genitalia and inner thighs, get on nystatin Pain of bi lateral hip joints 6740265582 0027654 M25.[address] Spann and Dr Jere duncan to take NSAIDs very sparingly! Referred again Seen in em ergency clinic 101124252 Z76.89 ER at [facility] [place] for chest pain Chest pain 29761102 R07. 9 ER at [facility] 02/03/2024 COVID 19/flu/RSV /XR chest: NegativeD- dimer: NegativeBN P/Trop: NegWBC elevatedDo es well now Dyspnea on exertion [address] Zeng 12/26/2023 PFT 02/05/2024 Leukocytosis 680793041 D 72.829 Get an apt with hematologi st Administra tion of influenza vaccine 34972315 Z23 Health Concerns Section Related Observation LastModified by Organization Detai ls LastModified Time None Recorded Concern Status LastModified by Organization Details LastModified Time None Recorded Advance Directives Directive N: Payers Encounter Date Sequence Insurance Name Policy Number Policy Wick Covered Member ID Wick Member ID Guarantor Name 09/25/2023 1 [place] Violet Valdez [place] [id number] 1 Violet E Morthland 09/25/2023 2 [employer] (MEDICARE SUPPLEMENT) Violet E Morthland [id number] Violet E Morthland 12/26/2023 1 [place] Violet E M[place] [id number] 1 Violet E Morthland 12/26/2023 2 [employer] [place] (MEDICARE SUPPLEMENT) Violet E Morthland [id number] Violet E Morthland 01/15/2024 1 [place] Violet E M[place] [id number] 1 Violet E Morthland 01/15/2024 2 [employer] [place] (MEDICARE SUPPLEMENT) Violet E Morthland [id number] Violet E [place]land 02/21/2024 1 [place] (MEDICARE) Violet E Morthland [id number] 1 Violet E Morthland 02/21/2024 2 [employer] (MEDICARE SUPPLEMENT) Violet E Morthland [id number] Violet E Morthland 04/23/2024 1 [place] Violet E Morthland [id number] 1 Violet E Morthland 04/23/2024 2 [employer] (MEDICARE SUPPLEMENT) Violet E Morthland [id number] Violet E Morthland Notes Date Note Type Note Provider Name and Address Organization Details Recorded Time 09/25/2023 text/html Addendum: 01/15/2024: 09/25/2023: Here to establish care Present Hx: ADHD Allergies Tachycardia Hypertrophy of vulva DMII LUIS MANUEL Here to discuss above Hernan Madden MD [address] [place] [address], [phone], [place] [facility] 01/15/2024 12:00:21 12/26/2023 text/html Primary care/Referring provider: Hernan Madden MD Patient is here to go over shortness of breath evaluation/managemen t. Initial development of shortness of breath: 2021 Duration of shortness of breath: 2 years Condition of shortness of breath: stable Timing of shortness of breath: none Frequency: up to 2 times a day Limits activities: yes Aggravating factors: running, laying on her back Alleviating factors: rest, rise up from lying position Modified [employer] [place] (mMRC) Dyspnea Scale - Grade 2 Grade 0 I only get breathless with strenuous exercise . Grade 1 I get short of breath when hurrying on the level or walking up a slight hill . Grade 2 I walk slower than people of the same age on the level because of breathlessness or have to stop for breath when walking at my own pace on the level . Grade 3 I stop for breath after walking about 100 yards or after a few minutes on the level . Grade 4 I am too breathless to leave the house or I am breathless when dressing . Treatment history: Albuterol nebs as needed 2022 only Albuterol HFA as needed since 2021 Other symptoms: Drooling: no Dysarthria: no Neck pain: no Odynophagia: no Dysphagia: no Weak mastication: no Facial weakness: no Nasal speech: no Protruding tongue: no Productive cough: no Wheezing: no Chest tightness: yes Orthopnea: no Frequent throat clearing or swallowing: yes Palpitations: yes Heartburn: no Edema: no Environmental exposures: Nicotine smoke: no [place]: no Dye: no Dust mites: yes Mold: no Damp basement: no Wood burning stove: no Animal dander: dog Cockroaches: no Pollen: yes Arsenic: no Asbestos: no Beryllium: no Cadmium: no Chromium: no [place] smoke: no Diesel fumes: no Nickel: no Silica: no Soot: no EPWORTH SLEEPINESS SCALE (ESS) CHANCE OF DOZING SCORE 0 = would never doze 1 = slight chance of dozing 2 = moderate chance of dozing 3 = high chance of dozing SITUATION AND CHANCE OF DOZING Sitting and reading - 0 Watching television - 0 Sitting inactive in a public place (e.g. a theater or meeting) - 0 As a passenger in a car for an hour without a break - 0 Lying down to rest in the afternoon when circumstances permit - 0 Sitting and talking to someone - 0 Sitting quietly after lunch without alcohol - 0 In a car, while stopped for a few minutes in the traffic - 0 TOTAL SCORE 0 Subjectively, patient has no chance of dozing. Gray Zeng MD [address] [place] [address], [facility] [address], [place], [address], [facility] [employer] 12/26/2023 13:04:09 01/15/2024 text/html 09/25/2023: Here to establish care Present Hx: ADHD Allergies Tachycardia Hypertrophy of vulva DMII LUIS MANUEL Here to discuss aboveOV 01/15/2024:Here for her f/u apt, she is doing well, she is here with her mother, she does have a rash from working in the yard and feels that 'bugs bit' herShe has no new labsShe has seen her antenna installer, and her OB and is now not taking any GLP-1 as it interferes with her OC and caused her to get excessive mensesShe would also like to get another apt with Dr Grhaam as she has noted increasing fawn hip pain, she was offered steroid shots in the past Hernan Madden MD [address], [place], [address], [employer] [facility] 01/15/2024 12:45:41 02/21/2024 text/html 09/25/2023: Here to establish care Present Hx: ADHD Allergies Tachycardia Hypertrophy of vulva DMII LUIS MANUEL Here to discuss aboveOV 01/15/2024:Here for her f/u apt, she is doing well, she is here with her mother, she does have a rash from working in the yard and feels that 'bugs bit' herShe has no new labsShe has seen her antenna installer, and her OB and is now not taking any GLP-1 as it interferes with her OC and caused her to get excessive mensesShe would also like to get another apt with Dr Graham as she has noted increasing fawn hip pain, she was offered steroid shots in the past OV 02/21/2024: Here for her apt s/p ER visit, she is here with her mother, she is doing well today, was seen in the ER for chest pain, no chest pain today Hernan Madden MD [address], [place], [address], [employer] [facility] 02/21/2024 17:26:16 04/23/2024 text/html 09/25/2023: Here to establish care Present Hx: ADHD Allergies Tachycardia Hypertrophy of vulva DMII LUIS MANUEL Here to discuss aboveOV 01/15/2024:Here for her f/u apt, she is doing well, she is here with her mother, she does have a rash from working in the yard and feels that 'bugs bit' herShe has no new labsShe has seen her antenna installer, and her OB and is now not taking any GLP-1 as it interferes with her OC and caused her to get excessive mensesShe would also like to get another apt with Dr Graham as she has noted increasing fawn hip pain, she was offered steroid shots in the past OV 02/21/2024: Here for her apt s/p ER visit, she is here with her mother, she is doing well today, was seen in the ER for chest pain, no chest pain today OV 04/23/2024: Here for her f/u apt, she is here with her grand mother, she did do the labs Hernan Madden MD [address] [facility], [facility] [address], [place], [address], [facility] [employer] 04/28/2024 14:54:05 OBGyn Episode No OBEpisode recorded.
--- OUTSIDE RECORDS SUMMARY | 2024-10-16 10:58 | XMS_ITS | Clinical Summary ---
Author Organization [facility] Address [address] [place] [address] Care Team Providers Care Portable Machine Sander Name Role Phone Hernan Madden MD Primary Care Provider Allergies Active Allergy Reactions Criticality Noted Date Comments Azithromycin Rash,Hives High 08/18/2019 Black Pepper Anaphylaxis High 05/31/2023 White pepper Chlorpheniramine Itching,Rash Low 12/27/2015 chlortimatime Medications albuterol sulfate HFA 90 mcg/actuation aerosol inhaler INHALE 2 PUFFS BY MOUTH 4 TIMES DAILY NEEDED FOR SHORTNESS OF BREATH FOR WHEEZING Active dapagliflozin propanediol (Farxiga) 10 mg Tablet Oral 11/07/19 24 Active dexAMETHasone (DECADRON) 1 mg Tablet TAKE ONE TABLET BY MOUTH AT 10PM THE NIGHT BEFORE 8 AM CORTISOL 06/09/20 24 Active lamoTRIgine (LaMICtal) 100 mg tablet Take 100 mg by mouth 2 times daily. Active metFORMIN (GLUCOPHAGE XR) 500 mg Extended Release 24 hour tablet take 1 tablet by mouth twice daily before meal(s) Active omeprazole (PriLOSEC) 20 mg Capsule, Delayed Release(E.C.) take 1 capsule by mouth once daily in the morning Active venlafaxine (EFFEXOR XR) 75 mg Extended Release 24 hour capsule 1 Capsule. Active Saccharomyces boulardii (FLORASTOR) 250 mg Capsule Take by mouth. Acti ve VIT-IRON FUM-FOLIC AC ORAL Take by mouth. Activ e OneTouch Verio test strips Strip 1 Strip by See Admin Instructions route see administration instructions. 10/02/19 25 Active Trulicity 1.5 mg/0.5 mL injection Inject 1.5 mg by subcutaneous injection every 7 days. 09/27/19 25 Active Active Problems No known active problems Encounters Date Type Department Care Team Description 10/16/2024 10:15 AM CDT Office Visit [facility] Oncology and Hematology - Santos Ehsan Ram [address] [place] [phone] Mike Llanes MD Arrived 09/30/2024 External Device Data [facility]CTION Provider, Abstract 09/03/2024 External Device Data [facility] Provider, Abstract 09/03/2024 External Device Data [facility] Provider, Abstract 08/23/2024 External Device Data [facility] Provider, Abstract 08/22/2024 External Device Data [facility] [place] Provider, Abstract 08/20/2024 External Device Data [facility] [place] Provider, Abstract 08/06/2024 External Device Data [facility] Provider, Abstract from Last 3 Months Family History Medical History Relation Name Comments No Known Problems Brother 1 No Known Problems Brother 2 Diabetes Father No Known Problems Mother No Known Problems Sister 1 No Known Problems Sister 2 Relation Name Status Comments Brother 1 Alive Brother 2 Alive Father Alive Mother Alive Sister 1 Alive Sister 2 Alive Social History Tobacco Use Types Packs/Day Years Used Date Smoking Tobacco: Never Smokeless Tobacco: Never Tobacco Cessation:Counseling Given: Not Answered Alcohol Use Standard Drinks/Week Comments Yes 0 (1 standard drink = 0.6 oz pur e alcohol) occassionally Comments Unknown Sex and Gender Information Value Date Recorded Sex Assigned at Not on file Legal 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 Gender Identity Not on file Sexual Orientation [...] 6.4 oz) 10/16/2024 10:32 AM CDT Height 167.6 cm (5' 6 ) 06/12/2024 11:49 AM DEEP 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 Body Mass Index 27.18 06/12/2024 11:49 AM 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 Plan of Treatment Health Maintenance Due Date Last Done Comments CHLAMYDIA SCREENING (ANNUAL) 11-24 YEARS 2012 HPV VACCINES (1 - 3-dose series) 2016 DIABETES ANNUAL FOOT EXAM 2019 DIABETES ANNUAL RETINAL EXAM 2019 DIABETES MICROALBUMIN ANNUAL SCREEN 2019 LDL CHOLESTEROL ANNUAL 2019 DTAP/TDAP/TD VACCINES (1 - Tdap) 2020 HEPATITIS B VACCINES (1 of 3 - 19+ 3-dose series) 11/2020 CERVICAL CANCER SCREENING 2022 HPV/Cotest (21-29) 2022 PAP SMEAR 2022 DIABETES HBA1C Q 6 MONTHS 11/30/2023 05/31/2023 Traditional Medicare (ACO) Annual Wellness Visit 04/2804/27/2023 INFLUENZA VACCINE Completed 04/23/2024 Insurance MEDICARE PART A AND B LOCATED WITHIN [facility] Care Teams Portable Machine Sander Relationship Specialty Start Date End Date Hernan Madden MD [address] [place] [address] [address] PCP - General Internal Medicine 06/27/24
--- OUTSIDE RECORDS SUMMARY | 2024-10-16 10:58 | XMS_ITS | Clinical Summary ---
Author Organization [facility] Address [address] [facility] [place] [address] Care Team Providers Care Environmental Health Officer Name Role Phone Unavailable Primary Care Provider Unavailabl e Source Comments [facility],non-owned Affiliates and Associated Physician Practices is amultiple site organization consisting of ambulatory clinics and hospital sitesin [place], [place], [place] and [place]. This disclosure is being madepursuant to the Care Everywhere program and may not contain all information available regarding this patient. Last updated 18.[facility] Allergies Active Allergy Reactions Criticality Noted Date Comments Chlorpheniramine Itching 12/27/2015 chlortimatime Azithromycin Urticaria Medium 08/18/2019 Medications * Be aware that medications may not be up to date on this document. Alwaysverify current medications with the patient. dexmethylphenid ate (FOCALIN) 10 MG tablet TK PO 1 T QAM AND 1 T AT NOON 0 6 Active PROAIR HFA 108 (90 BASE) MCG/ACT inhaler USE 2 PUFFS PO Q 4 TO 6 H PRN. 2 6 Active LORazepam (ATIVAN) 0.5 MG tablet Take 0.5 mg by mouth once daily Active levonorgestrel- ethinyl estradiol (ASHLYNA) 0.15-0.03 &0.01 MG tablet Take 1 tablet by mouth once daily Active dexmethylphenid ate (FOCALIN) 5 MG tablet Take 5 mg by mouth Every morning and lunchtime Active Vit-Fe Fumarate-FA ( VITAMIN) 28-0.8 MG tablet Take 1 tablet by mouth once daily Active diphenhydrAMINE (BENADRYL) 25 MG capsule Take 25 mg by mouth every 4 hours as needed for Itching Active Blood Glucose Monitoring Suppl (XencorUCH VERIO IQ SYSTEM) w/Device KIT Use 1 kit as directed 1 kit 9 Active blood glucose (ONETOUCH VERIO) test strip Use to test blood sugars before breakfast, after lunch and before dinner. 200 strip 5 9 Active One Touch Delica Lancets Use 5-9 lancets daily 200 Each 11 9 Active triamcinolone acetonide (KENALOG) 0.1 % ointment ALEJANDRA EXT AA BID 9 Active esomeprazole (NEXIUM) 20 MG capsule Take 20 mg by mouth daily before breakfast Active lansoprazole (PREVACID) 30 MG capsule Take 1 capsule by mouth 2 times daily, before breakfast and supper 30 capsule 3 0 Active Blood Glucose Monitoring Suppl (XencorUCH VERIO FLEX SYSTEM) w/Device KIT Use 1 kit as directed 1 kit 2 0 Active Active Problems Problem Noted Date Diagnosed Date Elevated hemoglobin A1c 06/19/2019 Overview (06/19/2019): A1c consistent with diabetes mellitus, not clearly determined as type 1 or type 2. C-peptide is normal, LUIS MANUEL negative, IA-2 negative. Currently treating with dietary changes. 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 Gender Identity Not on file Sexual Orientation Not on file Last Filed Vital Signs Vital Sign Reading Time Taken Comments Blood Pressure 96/62 12/26/2019 11:45 AM CDT Pulse 80 12/26/2019 11:50 AM CDT Temperature 36.9 C (98.4 F) 12/26/2019 11:09 AM CDT Respiratory Rate 20 12/26/2019 11:5 0 AM CDT Oxygen Saturation 97% 12/26/2019 11: 50 AM CDT Inhaled Oxygen Concentration 100% 03/2020 11:18 AM CDT Weight 74.8 kg (164 lb 14.5 oz) 12/26/2019 9:01 AM CDT Height 165.1 cm (5' 5 ) 12/26/2019 9:01 AM CDT Body Mass Index 27.44 12/26/2019 9:01 AM CDT Plan of Treatment Health Maintenance Due Date Last Done Comments MEDICARE AWV 12 MONTHS 2001 PAP SMEAR 2001 HIV SCREENING 2016 HPV VACCINE (1 - 3-dose series) 2016 CHLAMYDIA/GONORRHEA SCREENING 2017 MENINGOCOCCAL (Group B) VACC INE SHARED DECISION-MAKING (1 of 2 - Standard) 2017 HEPATITIS C SCREENING 06/19/2019 DTAP/TDAP/TD VACCINES (1 - Tdap) 2020 HEPATITIS B VACCINE (1 of 3 - 19+ 3-dose series) 2020 COVID-19 VACCINE (1 - 2023-2 5 season) 2024 DEPRESSION SCREENING 06/18/2024 INFLUENZA VACCINE (Season Ended) 2025 ZOSTER VACCINE (1 of 2) 2051 HIB VACCINE Aged Out No longer eligi ble based on patient's age to complete this topic MENINGOCOCCAL GROUPS A/C/Y/W VACCINE Aged Out No longer eligible b ased on patient's age to complete this topic PNEUMOCOCCAL VACCINE Aged Out No long er eligible based on patient's age to complete this topic Insurance MEDICARE SELF PAY NO INSURANCE Member Subscriber Plan / Payer (Ef fective for All Dates) Name:Holden Carltonn José Miguel Member ID:Not on file Relation to Subscriber:Self Name:Violet Carlton Subscriber ID:Not on file Payer ID:Not on file Group ID:Not on file Type:Self Pay Address: [place], [place] MEDICARE [facility] MEDICARE [facility] [facility] R[facility]K MEDICARE [facility] SPECIALTY RISK MEDICAID [place]
--- OUTSIDE RECORDS SUMMARY | 2024-10-16 10:58 | XMS_ITS | Clinical Summary ---
Author Organization [facility] Address [address] [place] [address] Care Team Providers Care Backbreaker Name Role Phone Sukhwinder Madden MD Primary [...] Cartridge) 30 gauge combo pack 30 each spray gun repairer helper before breakfast 3 each 3 3 Active [...] 08/04/2021 Assessment & Plan (05/31/2023 4:15 PM REAL ESTATE ASSET MANAGER): Hba1c was Lab Results Component Value Date [...] IA-2 negative. Currently treating with dietary changes. Surgical History Surgery Date Site/Laterality Comments BACK SURGERY N/A Medical History Medical History Date Comments Diabetes (HCC) Tachycardia Anxiety Depression Social History Tobacco Use Types Packs/Day Years Used Date Smoking Tobacco: Some Days Cigarettes Smokeless Tobacco: Never Tobacco Cessation:Ready to Q uit: Not Asked Comments:Marijuana some days for pain Comments No Sex and Gender Information Value Date Recorded Sex Assigned at Not on file Legal Sex Female 12:00 PM REAL ESTATE ASSET MANAGER Gender Identity Not on file Sexual Orientation Not on file Obstetrics History Last Filed Vital Signs Vital Sign Reading Time Taken Comments Blood Pressure 120/70 05/31/2023 2:17 PM REAL ESTATE ASSET MANAGER Pulse 105 05/31/2023 2:17 PM REAL ESTATE ASSET MANAGER Temperature - - Respiratory Rate 18 05/31/2023 2:17 PM REAL ESTATE ASSET MANAGER Oxygen Saturation - - Inhaled Oxygen Concentration - - Weight 80.7 kg (178 lb) 05/31/2023 2:17 PM REAL ESTATE ASSET MANAGER Height 166.4 cm (5' 5.5 ) 05/31/2023 2:17 PM REAL ESTATE ASSET MANAGER Body Mass Index 29.17 05/31/2023 2:17 PM REAL ESTATE ASSET MANAGER Plan of Treatment Health Maintenance Due Date Last Done Comments Albumin Creatinine Ratio, Urine 2001 Cervical Cancer Screening 2001 Depression Screening 2001 Hepatitis C Screening 2001 eGFR 2001 Dilated Eye Exam 2001 Foot Exam 2001 Lipid Panel 2001 Regular Well Visit/Exam 18-64 2019 DTaP/Tdap/Td Vaccine (7 - Td or Tdap) 11/18/2022 11/18/2012, 12/24/2006, 08/04/2002, Additional history exists Hemoglobin A1C 11/30/2023 05/31/2023 Covid-19 Vaccine (2023-2 5 season) 2024 06/24/2021, 09/22/2020 Influenza Vaccine (Season Ended) 2025 04/04/2021, 04/26/2020, 05/28/2018, Additional history exists Hepatitis B Screening Completed 03/28/2002 , 2001, 2001 Varicella Vaccines Completed 12/24/2006, 08/04/2002 Meningococcal B Vaccine Completed 02/26/2018, 12/21 HPV Vaccines Completed 03/11/2021, 09/17, 09/06/2020 Pneumococcal vaccine <65 Completed 022, 2001, 2001, Additional history exists Procedures Procedure Name Priority Date/Time Associated Diagnosis Comments POCT HEMOGLOBIN A1C Routine 05/31/2023 2 :17 PM REAL ESTATE ASSET MANAGER Type 2 diabetes mellitus with hyperglycemia, with long-term current use of insulin (HCC) from Last 3 Months or Most Recently Relevant to Health Maintenance Results * (ABNORMAL) POCT hemoglobin A1c (05/31/2023 2:17 PM REAL ESTATE ASSET MANAGER) Hemoglobin A1C, POC 7.5 % Blood spot 05/31/2023 2:17 PM REAL ESTATE ASSET MANAGER Marco Antonio Geller MD POINT OF CARE TEST ORDERABLES Fi nal Result from Last 3 Months or Most Recently Relevant to Health Maintenance Insurance MEDICARE [employer] [place] MEDICARE [place] Care Teams Backbreaker Relationship Specialty Start Date End Date Sukhwinder Madden MD [address] [place] [address] PCP - General Internal Medicine 04/27/22
--- OUTSIDE RECORDS SUMMARY | 2024-10-16 10:59 | XMS_ITS ---
Author Organization [facility] Address [address] [address] Care Team Providers Care Spa Attendant Name Role Phone Cici Fuller Primary Care Provider [phone] Allergies Allergen (clinical drug ingredient) Drug/Non Drug Allergy documented on EMR Reaction Allergy Type Onset Date Status Z PACK (uncoded) Unknown Allergy Act jae Pepper PEPPER (uncoded) Unknown Allergy Act jae REASON FOR VISIT Re Establish Care Medications Medication SIG (Take, Route, Fr equency, Duration) Notes Start Date End Date Status Corlanor 5 MG 1 tablet with meals Orally Twice a day Active lamoTRIgine Active dexAMETHasone 1 MG 1 tablet Orally at 1 0 pm night before 8 am cortisol for 1 days 05/08/2024 Active Rosuvastatin Calcium Active Problems Problem Type SNOMED Code ICD Code Onset Dates Problem Status W/U Status Risk Notes Problem Hyperglycemia due to type 2 diabetes mellitus (250424832125532) Type 2 diabetes mellitus with hyperglycemia (E11.65) Active confirmed Problem Obesity (319601067) Obesity, unspecified (E66.9) Active confirmed Problem Irregular menstruation (95815317) Irregular menstruation, unspecified (N92.6) Active confirmed Problem Vitamin D deficiency (07393360) Vitamin D deficiency, unspecified (E55.9) Active confirmed Problem Non-toxic goiter (460173046) Nontoxic goiter, 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 Vital Signs Blood pressure systolic 108 mm Hg 05/08/20 24 Blood pressure diastolic 73 mm Hg 024 Heart Rate 89 /min 05/08/2024 Height 66 in 05/08/2024 Weight 178.4 lbs 05/08/2024 BMI 28.79 kg/m2 05/08/2024 Encounters Encounter Location Date Provider Diagnosis [facility] - Cici Fuller [address] [place] [address] 05/08/2024 Cici Fuller Type 2 diabetes elle itus with hyperglycemia E11.65 ; Other fatigue R53.83 ; Obesity, unspecified E66.9 ; Encounter for screening for lipoid disorders Z13.220 ; Irregular menstruation, unspecified N92.6 ; Vitamin D deficiency, unspecified E55.9 and Nontoxic goiter, unspecified E04.9 Assessments Encounter Date Diagnosis (ICD Code) Assessment Notes Treatment Notes Treatment Clinical Notes Section Notes 05/08/2024 Type 2 diabetes mellitus with hyperglycemia (ICD-10 - E11.65) 05/08/2024 Other fatigue (ICD-10 - R53.83) 05/08/2024 Obesity, unspecified (ICD-10 - E66.9) 05/08/2024 Encounter for screening for lipoid disorders (ICD-10 - Z13.220) 05/08/2024 Irregular menstruation, unspecified (ICD-10 - N92.6) 05/08/2024 Vitamin D deficiency, unspecified (ICD-10 - E55.9) 05/08/2024 Nontoxic goiter, unspecified (ICD-10 - E04.9) [...] EpiPen if needed. Consider referral to an semiconductor wafer inspector for further evaluation and management. 5. Insomnia:- [...] evaluation.- Plan: Provide options for imaging centers ([facility], [facility], or [facility]). Schedule imaging appointments and follow up with results. Spent 45 minutes preparing to see the patient (ex review of tests/chart), obtaining and / or reviewing separately obtained history, performing a medically appropriate examination and/or evaluation, counseling and educating the patient/family/ca regiver, ordering medications, tests, or procedures, referring and communicating with other health childbirth and infant care teacher, documenting clinical information in the electronic or other health record, independently interpreting results and communicating results to the patient/family/ca regiver and care coordinating patient plan. Patient alert and oriented x 4 and aware of discussion noted above and in agreeance to plan in management of type 2 DM, irregular cycles, weight gain/overweight, goiter. Plan Of Treatment Medication Medication Name Sig Start Date Stop Date Notes dexAMETHasone 1 MG 1 tablet Orally at 1 0 pm night before 8 am cortisol for 1 days 05/08/2024 Treatment Notes Assessment Notes Other Assessment and Plan: 1. Diabetes Mellitus [...] EpiPen if needed. Consider referral to an semiconductor wafer inspector for further evaluation and management. 5. Insomnia:- [...] evaluation.- Plan: Provide options for imaging centers ([facility], [facility], or [facility]). Schedule imaging appointments and follow up with results. Spent 45 minutes preparing to see the patient (ex review of tests/chart), obtaining and / or reviewing separately obtained history, performing a medically appropriate examination and/or evaluation, counseling and educating the patient/family/caregiver, ordering medications, tests, or procedures, referring and communicating with other health childbirth and infant care teacher, documenting clinical information in the electronic or other health record, independently interpreting results and communicating results to the patient/family/caregiver and care coordinating patient plan. Patient alert and oriented x 4 and aware of discussion noted above and in agreeance to plan in management of type 2 DM, irregular cycles, weight gain/overweight, goiter. Pending Test Test Name Order Date Ultrasound thyroid 05/08/2024 Next Appt Details Follow Up: 4 Weeks, Reason: labwork Progress Notes * Kermit MCAKOB:2000 (23 yo F)Acc No.[id number]:05/08/2024 Progress Notes Patient: Zhen LEXXAmyViolet Provider: Zhen Fuller MD :2000 A ge:23 Y S ex:Female Date:05/08/2024 Address:[address], [facility] Subjective: * Chief Complaints: * 1 . Re Establish Care. * HPI: Sridevi bethany: 23 yo female referred to our clinic by courtesy of Dr. Madden for management and evaluation of uncontrolled type 2 DM, weight gain/management, fatigue, and hormonal concerns. Violet, a patient with a history of diabetes and hypothyroidism, reported recent changes in her diabetes medications, including adverse reactions to Mounjaro and Ozempic, and is now back on Victoza at a lower dose. She also has tachycardia managed with Corlanor and experiences seasonal allergies. Violet reports insomnia and a feeling of fullness in her thyroid, prompting a planned thyroid ultrasound. Her blood sugar levels have improved slightly, and she is awaiting a continuous glucose monitor. The patient, Violet, presents with a history of diabetes and hypothyroidism. She reports recent changes in her diabetes medications, including discontinuation of Victoza due to insurance issues, followed by a trial of Mounjaro, which caused severe vaginal hemorrhaging. She was then switched to Ozempic, which led to vomiting and diarrhea. Deena has recently been placed back on Victoza at a lower dose by her primary care physician, Dr. Madden, and reports that her blood sugar levels have improved slightly. Violet also has a history of tachycardia and is currently on Corlanor, as other blood pressure medications cause her blood pressure to drop too much. She is under the care of Dr. Nunn and Dr. Madden for her cardiology needs. The patient experiences seasonal allergy symptoms, including a stuffy nose, and takes Benadryl and ibuprofen for allergic breakouts and headaches. 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 Violet reports difficulty sleeping at night and tends to sleep during the day. She has a history of weight issues and is currently a little overweight with a BMI under 30. She mentions that her thyroid feels full and has had previous checks on her lymph nodes and thyroid due to swelling. * ROS: D ERMATOLOGY: no r danilo. n o [...] i nsomnia. n o m meng loss. d izziness y es. n o g ait abnormality. n o [...] acular degeneration.?no e ye redness. R ESPIRATORY: shortness of breath y es. n o c hest pain. n o?wheezing. [...] atigue. n o l oss of appetite. e asy bruising yes. n o e asy bleeding. n o [...] o u rine hesitancy.?no p ainful urination. N UTRITION: greater than body requirmemts y es. L ess than body requirements y es. a ppropriate / adequate y es, y es. C ONSTITUTIONAL: no w eight gain. n o l oss of appetite. n o?fever. n o w eakness. n o w eight loss. n ight sweats y es. n o n ausea. n o v isual changes. n o c hange in sleep patterns. h +p reviewed y es, R OS form reviewed with patient see scan for detail. n o c hange in activity capacity. E NT: no c old. n o [...] n o f requent nosebleeds. C ARDIOLOGY: chest pain y es. n o p alpitations. n o l [...] n o p urple fingers or lips. i rregular heart rate y es. n o c ongenital heart defects. n o d izziness when standing up quickly. n o a wakening at night short of breath. G ASTROENTEROLOGY: nausea y es. n o h eartburn. n o s tool incontinence. n o r eflux. a bdominal pain y es. n o i ndigestion. n o h emorrhoids. n o h iatal hernia. n o u lcers. n o a nal fissures. n o?hepatitis. n o g allstones. n o r ed blood after bowel movements. v omiting yes. n o b loating/belching. n o d ifficulty swallowing. n o d iarrhea.?no c onstipation. n o c hange in bowel habits. n o b lood in stool. ? M USCULOSKELETAL: no j oint swelling. j oint pain y es, H IPS.?no l eg cramps. n o j oint stiffness. n o a rthritis. b ack pain y es. n o m uscle aches. n o m orning stiffness. n o t endinitis. n o n courtney pain. n o b ursitis. n o b one marrow biopsy. n o g out. a ctivity intolerance w eakness. n o f racture. P SYCHOLOGY: no h igh stress level. d epression y es. s leep disturbances y es. n o r shakira sx worse with stress. n o s uicidal ideation. n o e ating disorder. n o m ental or physical abuse. a nxiety y es. n o h eadaches. d isease state [...] vaginal discharge. n o h ot flashes. S KIN WOUND PROBLEMS PAIN WITH WALKING. * Medical History: T ACHICARDIA, DIABETIES. * Surgical History: 3 BACK SURGRIES . * Family History: F ather: diagnosed with Diabetes. P aternal uncle: diagnosed with Diabetes. P aternal aunt: diagnosed with Diabetes. * Social History: S moking: no . R ecreational drug use: no. Alcohol: no, occasionally. * Medications: T aking Rosuvastatin Calcium , Taking lamoTRIgine , Taking Corlanor(Ivabradine HCl) 5 MG Tablet 1 tablet with meals Orally Twice a day * Allergies: P WILFRIDER, Zahida PACK. Objective: * Vitals: H R: 89, BP: 108/73, Ht: 66, Wt: 178.4, BMI: 28.79. * Examination: G eneral Examination: General n ormal, NAD, well nourished and hydrated, pleasant. Neck, thyroid : s upple goiter. Heart: B P wnl, RSR, no murmurs. Lungs: n ormal, respirations easy with conversation and ambulation. Abdomen: n ormal, round, non-distended. Neurologic exam: u nremarkable. Extremities: u nremarkable. Peripheral pulses: n ormal (2+) bilaterally . Psych: o rientation to person, place & situation, appropriate judgment noted. Assessment: * Assessment: 1. T ype 2 diabetes mellitus with hyperglycemia - E11.65 (Primary) 2 . O ther fatigue - R53.83 3 . O besity, unspecified - E66.9 4 . E ncounter for screening for lipoid disorders - Z13.220 5 . I rregular menstruation, unspecified - N92.6 6 . V itamin D deficiency, unspecified - E55.9 7 . N ontoxic goiter, unspecified - E04.9 Plan: * Treatment: 2. N ontoxic goiter, unspecified I maging: Ultrasound thyroid 3. O thers Notes: Assessment and Plan: 1. Diabetes Mellitus Type [...] EpiPen if needed. Consider referral to an semiconductor wafer inspector for further evaluation and management. 5. Insomnia:- [...] evaluation.- Plan: Provide options for imaging centers ([facility], [facility], or [facility]). Schedule imaging appointments and follow up with results. Spent 45 minutes preparing to see the patient (ex review of tests/chart), obtaining and / or reviewing separately obtained history, performing a medically appropriate examination and/or evaluation, counseling and educating the patient/family/caregiver, ordering medications, tests, or procedures, referring and communicating with other health childbirth and infant care teacher, documenting clinical information in the electronic or other health record, independently interpreting results and communicating results to the patient/family/caregiver and care coordinating patient plan. Patient alert and oriented x 4 and aware of discussion noted above and in agreeance to plan in management of type 2 DM, irregular cycles, weight gain/overweight, goiter. * Procedure Codes: 9 9401 P/M BUSINESS PROCESS MODELER, INDIV 15 MIN * Follow Up: 4 Weeks (Reason: labwork) * Billing Information: * Visit Code: 90533 Office Visit, New Pt., Level 4. * Procedure Codes: 31188 P/M BUSINESS PROCESS MODELER, INDIV 15 MIN. * [place] CLIENT MANAGER Sign off status: Completed true * Provider: Zhen Fuller MD Date: 07/08/2023 Generated for Marti bermeo/Mao/Jacindaitting on: 0 10/16/2024 10:58 AM CDT History and Physical Notes * HPI (History of Present Illness) Category Sub-Category Detail Notes Category Not es Diabetes 23 yo female referred to our clinic by courtesy of Dr. Madden for management and evaluation of uncontrolled type 2 DM, weight gain/management, fatigue, and hormonal concerns. Violet, a patient with a history of diabetes and hypothyroidism, reported recent changes in her diabetes medications, including adverse reactions to Mounjaro and Ozempic, and is now back on Victoza at a lower dose. She also has tachycardia managed with Corlanor and experiences seasonal allergies. Violet reports insomnia and a feeling of fullness in her thyroid, prompting a planned thyroid ultrasound. Her blood sugar levels have improved slightly, and she is awaiting a continuous glucose monitor. The patient, Violet, presents with a history of diabetes and hypothyroidism. She reports recent changes in her diabetes medications, including discontinuation of Victoza due to insurance issues, followed by a trial of Mounjaro, which caused severe vaginal hemorrhaging. She was then switched to Ozempic, which led to vomiting and diarrhea. Deena has recently been placed back on Victoza at a lower dose by her primary care physician, Dr. Madden, and reports that her blood sugar levels have improved slightly. Violet also has a history of tachycardia and is currently on Corlanor, as other blood pressure medications cause her blood pressure to drop too much. She is under the care of Dr. Nunn and Dr. Madden for her cardiology needs. The patient experiences seasonal allergy symptoms, including a stuffy nose, and takes Benadryl and ibuprofen for allergic breakouts and headaches. 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 Violet reports difficulty sleeping at night and tends to sleep during the day. She has a history of weight issues and is currently a little overweight with a BMI under 30. She mentions that her thyroid feels full and has had previous checks on her lymph nodes and thyroid due to swelling. Examination Category Sub-Category Detail Notes Category Not es General Examination Neck, thyroid : supple goiter Heart: BP wnl, RSR, no murm urs Lungs: normal, respirations easy with conversation and ambulation Abdomen: normal, round, non-d istended Extremities: unremarkable General normal, NAD, well no urished and hydrated, pleasant Neurologic exam: unremarkable Peripheral pulses: normal (2+) bilatera lly Psych: orientation to perso n, place & situation, appropriate judgment noted
== END 2024-10-16 10:15 | disposition home or self-care (01) ==
LOC: ANHLAB 10:15
PROVIDERS: PCP Internal Medicine; Visit Provider Internal Medicine Hematology & Oncology
DX: D72.829 Elevated white blood cell count, unspecified (principal)
CPT/HCPCS: 36415; 85025

== ENCOUNTER 2024-10-25 11:13 | Emergency (ER) | payer MEDICARE, OTHER, SELFPAY ==
--- NOTE | ~2024-10-25 | XR_ITS ---
EXAMINATION: XR ankle RT min 3V DATE: 10/25/2024 11:58 INDICATION: Right ankle swelling post injury TECHNIQUE: Anteroposterior, oblique, mortise, and lateral views of the right ankle were obtained. COMPARISON: None. FINDINGS: Prominent diffuse soft tissue swelling about the ankle, both medially and laterally. Alignment is nor mal. No fracture. Joint spaces are normal. No ankle joint effusion. IMPRESSION: 1. No evident ankle joint effusion or osseous abnormality. Reviewed, dictated and finalized at location A.
--- OUTSIDE RECORDS SUMMARY | 2024-10-25 11:15 | XMS_ITS ---
Author Organization [facility] Address [address] [place] [address] Care Team Providers Care Petroleum Refinery Operator Name Role Phone Cici Fuller Primary Care Provider [phone] REASON FOR VISIT diabetes/ medicare & mutual of [employer] Encounters Encounter Location Date Provider Diagnosis [facility], [facility] - Cici Fuller [address] [place] [address] 10/29/2023 Cici Fuller Plan Of Treatment No Information Progress Notes * Kermit MACKOB:2000 (24 yo F)Acc No.[id number]:10/29/2023 Progress Notes Patient: Zhen HALLMAN Violet Provider: Zhen Fuller MD :2000 A ge:23 Y S ex:Female Date:10/29/2023 [address] [facility] [facility] Subjective: * Chief Complaints: * 1 . diabetes/ medicare & [employer]. * Medical History: Objective: * Vitals: Assessment: Plan: * Treatment: * Billing Information: * Visit Code: * Procedure Codes: * Electronic signature of Bobby Fuller MD on 10/25/2024 at 11:15 AM CDT Sign off status: Pending * Provider: Zhen Fuller MD Date: 10/29/2023 Generated for Marti bermeo/Mao/eTransmitting on: 10/25/2024 11:15 AM CDT
--- OUTSIDE RECORDS SUMMARY | 2024-10-25 11:16 | XMS_ITS | CONTINUITY OF CARE DOCUMENT ---
Author Name meg, meg Address Unknown Organization [facility] Address [address] [facility] [facility] [address] [facility] [address] [place] [address] Phone [phone] Care Team Providers Care Graphite Grinder Name Role Phone Ward Fried MD Unavailable ERICA JUARES MD Unavailable [phone] ALENA JOHNSON MD Unavailable PROBLEMS Condition Status Date Provider Notes Palpitations active Ward Fried MD Diabetes mellitus, Type II active Ward escobedo MD GERD active Ward Fried MD Dizziness active Ward Fried MD ADHD active Ward Fried MD Scoliosis; has had 3x back surgery active Maggie Fried MD Gastric ulcer; h/o active Ward Fried MD Chest pain-type to be determined active Henrietta Fried MD Sinus tachycardia active Ward Fried MD Vaccination - COVID-19 active Ward Fried MD Postural orthostatic tachycardia syndrome active 05/01 Ward Fried MD Cardiology examination active Ward Fried MD ENCOUNTERS Date Type Provider Location Encounter Diag nosis - In-person encounter Office Visit Ward Fried MD [facility] Cardiology examination - In-person encounter Office Visit Ward Fried MD [facility] Postural orthostatic tachycardia syndrome - In-person encounter Office Visit Ward Fried MD [facility] - In-person encounter Office Visit Ward Fried MD [facility] - In-person encounter Office Visit Ward Fried MD [facility] - In-person encounter Office Visit Ward Fried MD [facility] Vaccination - COVID-19 - In-person encounter Office Visit Ward Fried MD [facility] - In-person encounter Office Visit Ward Fried MD [facility] Sinus tachycardia - In-person encounter Office Visit Ward Fried MD [facility] PalpitationsDiabetes mellitus, Type IIGERDDizzinessADHDScoliosi s; has [...] % Carol Steel pulse rate 90 /min Carol Steel blood pressure, diastolic 74 mm[Hg] Ronna [...] mcgregor Morris oxygen saturation, oximetry 100 % [facility] pulse rate 95 /min [facility] blood pressure, cuff size regular Reji chelsea Morris weight E&M 179.6 [lb_av] [facility] height E&M 64 [in_i] [facility] Morris Body Mass Index (Ratio) 30.38 [...] Gruenenfe er weight E&M 162 [lb_av] Corry Isabella Body Mass Index (Ratio) 27.80 kg/m2 Jer [...] USE Medication Status Instructions Dates Provider Indications [facility] ments Victoza 2-Librado 0.6 mg/0.1 mL (18 mg/3 mL) pen injector active Inject 0.6 mg subcutaneously once a day Grisel Soni [employer] G6 Sensor device active Apply 1 device [...] 1 TABLET BY MOUTH TWICE A DAY [facility] Specialist lansoprazole 15 mg capsule,delayed release(DR/EC) completed once a day - Chrissy PRIESP Ashlyna 0.15 mg-30 mcg (84)/10 mcg (7) [...] completed once a day - Chrissy Matthewmiglia [facility] SOCIAL HISTORY Date Observation Value Provider personal [...] history of marijuana use no Chrissy Ventimiglia [facility] drug use no Chrissy Ventimig mayra [facility] alcohol use no Chrissy Ventimig mayra [facility] smoking status Never smoker Chrissy Ventim iglia [facility] drug use no Ward Fired MD alcohol use no Ward Fried MD [...] Payer name Policy type / Coverage type [employer] red green party ID [employer] [id number] [place] MED[place] Medicare [id number] ADVANCE DIRECTIVES Name Date DISCUSSED - NO DECISION MADE TREATMENT PLAN Date Name Performer [id number],B, Ward Fried MD [id number],S,Per Dr Jonny Fried MD [id number],B, Ward Fried MD [id number],B, Ward Fried MD [id number],C, P shikha feels much better on Corlanor. [...] 1 capsule once a day Chrissy Emery [facility] Cardiology:poorly co ntrolled referred back to endocrine l pamellaestdeisy modification encouraged W ill resume Victoza as tolerated well in past and needs control of glucose to reduce cardiac risk factors and glycemic control. s he reports blood glucose as high as 558. Chrissy Ventimiglia [facility] Cardiology:continue corlanor Whitley jonas Ventimiglia [facility] Cardiology:Has repor ts of chest pain, SOB and palpitations. Also, associated with diaphoresis. S he has very uncontrolled blood glucose W ill plan routine stress test. Chrissy Ventimiglia [facility] Cardiology:Continues to have episodes of palpitations better with corlanor Chrissy Ventimiglia [facility] Cardiology:on Mounjaro Ward escobedo MD Cardiology:Needs 48hr [...]
--- OUTSIDE RECORDS SUMMARY | 2024-10-25 11:16 | XMS_ITS | Patient Health Record ---
Author Organization [facility] Address [address] [address] Care Team Providers Care Phonograph Needle Tip Maker Name Role Phone Cici Fuller Primary Care Provider Allergies Allergen (clinical drug ingredient) Drug/Non Drug Allergy documented on EMR Reaction Allergy Type Onset Date Status Z PACK (uncoded) Unknown Allergy Act jae Pepper PEPPER (uncoded) Unknown Allergy Act jae Results Component Value Reference Range Notes COMPREHENSIVE METABOLIC PANE L Reviewed date:05/17/2024 01:39:32 PM Interpretation: Performing Lab:KS, [facility], [address], [place], [address] Ebenezer Banks MD Notes/Report: VITAMIN D, 25-HYDROXY, LC/MS /MS Reviewed date:05/17/2024 01:59:29 PM Interpretation: Performing Lab:KS, [facility], [address], [place], [address] Ebenezer Banks MD Notes/Report: ACTH, PLASMA Reviewed date:05/21/2024 09:55:19 PM Interpretation: Performing Lab:AMD, [facility], [address], [place], [address] Chadwick Underwood M.D.,PhD Notes/Report: T3, FREE Reviewed date:05/17/2024 01:59:36 PM Interpretation: Performing Lab:KS, [facility], [address], [place], [address] Ebenezer Banks MD Notes/Report: CORTISOL, TOTAL Reviewed date:05/17/2024 02:05:26 PM Interpretation: Performing Lab:KS, [facility], [address], [place], [address] Ebenezer Banks MD Notes/Report: DHEA SULFATE Reviewed date:05/17/2024 02:05:44 PM Interpretation: Performing Lab:KS, [facility], [address], [place], [address] Ebenezer Banks MD Notes/Report: ESTRADIOL Reviewed date:05/17/2024 01:59:50 PM Interpretation: Performing Lab:KS, [facility], [address], [place], [address] Ebenezer Banks MD Notes/Report: FSH Reviewed date:05/17/2024 02:05:53 PM Interpretation: Performing Lab:KS, [facility], [address], [place], [address] Ebenezer Banks MD Notes/Report: HEMOGLOBIN A1c Reviewed date:05/17/2024 01:59:21 PM Interpretation: Performing Lab:[facility], [address], [place], [address] Ebenezer Banks Notes/Report: INSULIN Reviewed date:05/17/2024 02:06:08 PM Interpretation: Performing Lab:KS, [facility], [address], [place], [address] Ebenezer Banks MD Notes/Report: LH Reviewed date:05/17/2024 02:06:01 PM Interpretation: Performing Lab:KS, [facility], [address], [place], [address] Ebenezer Banks MD Notes/Report: MAGNESIUM Reviewed date:05/17/2024 01:39:49 PM Interpretation: Performing Lab:KS, [facility], [address], [place], [address] Ebenezer Banks MD Notes/Report: CBC (INCLUDES DIFF/PLT) Reviewed date:05/17/2024 01:31:12 PM Interpretation: Performing Lab:KS, [facility], [address], [place], [address] Ebenezer Banks MD Notes/Report: MICROALBUMIN, RANDOM URINE ( W/CREATININE) Reviewed date:05/17/2024 01:39:16 PM Interpretation: Performing Lab:JOHN, [facility], [address], [place], [address] Ebenezer Banks MD Notes/Report: VITAMIN B12/FOLATE, SERUM PA CHA Reviewed date:05/17/2024 01:59:43 PM Interpretation: Performing Lab:[facility], [address], [place], [address] Ebenezer Banks MD Notes/Report: PROGESTERONE Reviewed date:05/17/2024 02:00:13 PM Interpretation: Performing Lab:[facility], [address], [place], [address] Ebenezer Banks MD Notes/Report: IRON AND TOTAL IRON BINDING CAPACITY Reviewed date:05/17/2024 01:39:41 PM Interpretation: Performing Lab:[facility], [address], [place], [address] Ebenezer Banks MD Notes/Report: LIPID PANEL Reviewed date:05/17/2024 01:39:59 PM Interpretation: Performing Lab:[facility], [address], [place], [address] Ebenezer Banks MD Notes/Report: T4, FREE Reviewed date:05/17/2024 01:59:57 PM Interpretation: Performing Lab:[facility], [address], [place], [address] Ebenezer Banks MD Notes/Report: TSH Reviewed date:05/17/2024 02:00:05 PM Interpretation: Performing Lab:JOHN, [facility], [address], [place], [address] Ebenezer Banks MD Notes/Report: THYROID PEROXIDASE ANTIBODIE S Reviewed date:05/17/2024 02:05:36 PM Interpretation: Performing Lab:CB, [facility], [address] [place], [address] Paresh Lee Notes/Report: THYROID PEROXIDASE ANTIBODIES <1 <9 IU/mL TESTOSTERONE, FREE (DIALYSIS ) AND TOTAL,MS Reviewed date:05/17/2024 01:57:16 PM Interpretation: Performing Lab:Z3E, [facility], [address], [address], [place], [address] Chanel Mcfadden MD,PhD Notes/Report: TESTOSTERONE, TOTAL, MS 19 2-45 ng/dL For additional information, please refer to https://education.[employer].com/faq/NZB886 (This link is being provided for informational/educational purposes only.) (Note) This test was developed and its analytical performance characteristics have been determined by [facility]. It has not been cleared or approved by the FDA. This assay has been validated pursuant to the CLIA regulations and is used for clinical purposes. TESTOSTERONE, FREE 4.5 0.1-6.4 pg/mL (Note) This test was developed and its analytical performance characteristics have been determined by [facility]. It has not been cleared or approved by the FDA. This assay has been validated pursuant to the CLIA regulations and is used for clinical purposes. 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 Problem Irregular menstruation (10272733) Irregular menstruation, unspecified (N92.6) Active confirmed Vital Signs Heart Rate 82 /min 06/09/2024 Blood pressure diastolic 70 mm Hg 06/09/2024 Height 66 in 06/09/2024 Blood pressure systolic 110 mm Hg 06/09/2024 Weight 180 lbs 06/09/2024 BMI 29.05 kg/m2 06/09/2024 Encounters Encounter Location Date Provider Diagnosis [facility] [address] [place] [address] 05/08/2024 Cici Fuller Type 2 diabetes elle itus with hyperglycemia E11.65 ; Other fatigue R53.83 ; Obesity, unspecified E66.9 ; Encounter for screening for lipoid disorders Z13.220 ; Irregular menstruation, unspecified N92.6 ; Vitamin D deficiency, unspecified E55.9 and Nontoxic goiter, unspecified E04.9 [facility] [address] [place] [address] 06/09/2024 Cici Fuller Type 2 diabetes elle [...] EpiPen if needed. Consider referral to an wage and hour investigator for further evaluation and management. 5. Insomnia:- [...] evaluation.- Plan: Provide options for imaging centers ([place], [facility], or [place]). Schedule imaging appointments and follow up with results. Spent 45 minutes preparing to see the patient (ex review of tests/chart), obtaining and / or reviewing separately obtained history, performing a medically appropriate examination and/or evaluation, counseling and educating the patient/family/home care consultant, ordering medications, tests, or procedures, referring and communicating with other health day care center director, documenting clinical information in the electronic or other health record, independently interpreting results and communicating results to the patient/family/home care consultant and care coordinating patient plan. Patient alert [...] D deficiency- Low vitamin D levelsPlan:- Recommend [id number] vitamin D supplement once daily 6. Iron [...] examination and/or evaluation, counseling and educating the patient/family/home care consultant, ordering medications, tests, or procedures, referring and communicating with other health day care center director, documenting clinical information in the electronic or other health record, independently interpreting results and communicating results to the patient/family/home care consultant and care coordinating patient plan. Patient alert [...] Coverage End Date WPS Medicare Part B [place] Claims Department [address] [address] [place] [address] [id number] Violet Lomeli Self - patient is the insured [employer] [place] [id number] [employer] [facility] [place] [address] [id number] Violet Lomeli Self - patient is the insured Medical (General) History Medical History History ICD Code TACHICARDIA DIABETIES Surgical History Surgery Date(Month/Year) 3 BACK SURGRIES
--- OUTSIDE RECORDS SUMMARY | 2024-10-25 11:16 | XMS_ITS | Continuity of Care Document ---
Author Organization [facility] Address [address] [facility] [address] [place] [address] Phone Care Team Providers Care Product Introduction Manager Name Role Phone Allred OD, Miguel Angel Unavailable Unavailable Procedures Procedure Date Eye Exam & Treatment Refraction SV Poly Carb Sph +/- 7.12 To +/- 20 D Au Vision Svcs Frames Purchases Medical Tax Advance Directives Directive Yes / No Effective Date File Name No Information Encounters Encounter Description Practice Location Reason(s) For Visit Diagnoses Date Provider Providers Copied on Encounter [facility], [address] [place] [address] [address], [place], [place], [id number], [place] tel:[phone] [address] [facility] No Information 0-201 0 Allred OD Miguel Angel. [address] , [address], [place], [address], [place]. tel:[phone] [facility], [address] [place] [address] [address], [place], [place], [address], [place] tel:[phone] [facility] No Information 0201 0 [facility] . [address], [address], [place], [place], [address], [place]. tel:[phone] Referring Provider: Miguel Angel Allred OD Cami, [address], [place], [address]. tel:[phone] payan Provider: Ck Read, [address] [facility], [place], [address]. tel:[phone] Family History Family Member Type Diagnosis Age At Onset No Information Payers Payer name Insurance type Covered democrat ID Authorclair padgett(s) Medicaid [facility] [id number] Social History Type Description Quantity Date Captured [...]
--- OUTSIDE RECORDS SUMMARY | 2024-10-25 11:16 | XMS_ITS | Patient Health Record ---
Author Organization [facility] ([address]) Address [address] [place] [address] Care Team Providers Care Flakeboard Line Tender Name Role Phone Osvaldo Liliana Primary Care Provider UnavailSharee Carlos Unavailable [phone] [employer], Provider Unavailable Unavailab le Allergies Allergen [...] review and pick correct strength-formulat ion from [employer] options. If intended option is not shown, [...] W/U Status Risk Notes Problem Anxiety disorder (634158304) Anxiety disorder, unspecified (F41.9) Active confirmed Problem Allergic rhinitis (79258186) Other allergic rhinitis (J30.89) Active confirmed Problem Chronic rhinitis (39914024) Chronic rhinitis (J31.0) Active confirmed Problem Mild intermittent asthma (473718364) Mild intermittent asthma, uncomplicated (J45.20) Active confirmed Problem Food anaphylaxis (77720751) Anaphylactic reaction due to other food products, initial encounter (T78.09XA) Active confirmed Problem Food anaphylaxis (96551074) Anaphylactic reaction due to other food products, subsequent encounter (T78.09XD) Active confirmed Problem Allergy status t o other drugs, medicaments and biological substances (Z88.8) Active confirmed Encounters Encounter Location Date Provider Diagnosis [facility] - Wendy [address] [place] [address] 12/01/2023 Provider Vignesh Mild intermittent asthma, uncomplicated J45.20 Assessments Encounter Date Diagnosis (ICD Code) Assessment Notes Treatment Notes Treatment Clinical Notes Section Notes 12/01/2023 Mild intermittent asthma, uncomplicated (ICD-10 - J45.20) Plan Of Treatment No Information Insurance Providers Payer Name Payer Address Payer Phone Subscriber Number Group Number Insured Name Patient Relationship to Insured Coverage Start Date Coverage End Date [employer] (Medicare) Attention Claims [address] [place] [address] [id number] Violet Lomeli Self - [place] [address] [id number] Violet Lomeli Self - patient is the insured Medical (General) History Medical History History ICD Code Tachycardia Diabetes Asthma Depression, unspecified F32.A Anxiety disorder, unspecified F41.9 Allergic rhinitis due to pollen J30.1 Surgical History Surgery Date(Month/Year) neck to back surgery/ had scoliosis 2014 Extensive oral surgery 2019 Hospitalization History Reason Date(Month/Year) Neck/Back surgery 2014
--- OUTSIDE RECORDS SUMMARY | 2024-10-25 11:16 | XMS_ITS | Clinical Summary ---
Author Organization [facility] Address [address] [place] [address] Care Team Providers Care Strip Machine Operator Name Role Phone Sukhwinder Madden MD Primary [...] Cartridge) 30 gauge combo pack 30 each sole tacker before breakfast 3 each 3 3 Active [...] 08/04/2021 Assessment & Plan (05/31/2023 4:15 PM LEAD AUDITOR): Hba1c was Lab Results Component Value Date [...] on file Legal Sex Female 12:00 PM LEAD AUDITOR Gender Identity Not on file Sexual Orientation Not on file Obstetrics History Last Filed Vital Signs Vital Sign Reading Time Taken Comments Blood Pressure 120/70 05/31/2023 2:17 PM LEAD AUDITOR Pulse 105 05/31/2023 2:17 PM LEAD AUDITOR Temperature - - Respiratory Rate 18 05/31/2023 2:17 PM LEAD AUDITOR Oxygen Saturation - - Inhaled Oxygen Concentration - - Weight 80.7 kg (178 lb) 05/31/2023 2:17 PM LEAD AUDITOR Height 166.4 cm (5' 5.5 ) 05/31/2023 2:17 PM LEAD AUDITOR Body Mass Index 29.17 05/31/2023 2:17 PM LEAD AUDITOR Plan of Treatment Health Maintenance Due Date [...] HEMOGLOBIN A1C Routine 05/31/2023 2 :17 PM LEAD AUDITOR Type 2 diabetes mellitus with hyperglycemia, with long-term current use of insulin (HCC) from Last 3 Months or Most Recently Relevant to Health Maintenance Results * (ABNORMAL) POCT hemoglobin A1c (05/31/2023 2:17 PM LEAD AUDITOR) Hemoglobin A1C, POC 7.5 % Blood spot 05/31/2023 2:17 PM LEAD AUDITOR Marco Antonio Geller MD POINT OF CARE TEST ORDERABLES Fi nal Result from Last 3 Months or Most Recently Relevant to Health Maintenance Insurance MEDICARE [employer] MEDICARE [employer] Care Teams Strip Machine Operator Relationship Specialty Start Date End Date Sukhwinder Madden MD [address] [place] [address] PCP - General Internal Medicine 04/27/22
--- OUTSIDE RECORDS SUMMARY | 2024-10-25 11:16 | XMS_ITS ---
Author Organization [facility] ([address]) Address [address] [place] [address] Care Team Providers Care Truss Assembler Name Role Phone Liliana Riley Primary Care Provider UnavailSharee Carlos Unavailable [phone] [employer], Provider Unavailable Unavailab le Allergies Allergen (clinical drug ingredient) Drug/Non Drug Allergy documented on EMR Reaction Allergy Type Onset Date Status CHLOR-TRIMETON (uncoded) itching Allergy Active DAYQUIL COUGH (uncoded) hives Allergy Active Azithromycin itching Drug Allergy Acti ve ibuprofen Ibuprofen increase in headaches Drug Allergy Active REASON FOR VISIT [facility] Conversion Encounter Medications Medication SIG (Take, [...] review and pick correct strength-formulat ion from [employer] options. If intended option is not shown, discontinue and re-order from Quick Search* Active lamoTRIgine 100 MG 1 tab(s) orally 2 times a day Active Corlanor 5 MG 1 tab(s) orally 2 times a day (with meals) Active Encounters Encounter Location Date Provider Diagnosis [address] [address] 12/01/2023 Provider ADAMA-Phyllis Mild intermittent asthma, uncomplicated [...] Notes * Holden MACKJarvisOB:2000 (24 yo F)Acc No.[id number]:12/01/2023 Patient: Violet KELLY Provider: Karma Ferguson :2000 A ge:23 Y S ex:Female Date:12/01/2023 Address:[address] [place] [address] Pcp:Liliana Riley Subjective: * Chief Complaints: * [...] * Electronic signature of Anh GALAN-Migration on 10/25/2024 at 11:16 AM CDT Sign off status: Pending * Provider: Karma torres Migration Date: 0 12/01/2023 Generated for Marti bermeo/Mao/Nahid on: 0 10/25/2024 11:16 AM CDT
--- OUTSIDE RECORDS SUMMARY | 2024-10-25 11:16 | XMS_ITS | Data Portability ---
Author Organization [employer], Main Office Address [address] [place] [address] Care Team Providers Care Field Radio Operator Name Role Phone RALF MARI Primary Care Provider DAGMARRALF VILLA Referring Provider [phone] GRAY ZENG Seafood Specialist SHALONDA PHILIP Distillery Miller Helper GIO FRIED Test Baker Assessment Encounter Date Assessment Date Assessment LastModified by Organization Details LastModified Time 12/26/2023 12/26/2023 Assessment: Cough Dyspnea Plan: The following were reviewed and explained to the patient: primary care/referral note Chest 1 view 06/28/22 no acute disease Chest 2 views 12/07/23 no acute disease 2-D echocardiogram 10/26/23 EF 65% Cough/Dyspnea workup will be done as follows: Respiratory allergen panel for [facility] Serum IgE Serum total IgG, IgG1, IgG2, IgG3, IgG4 Yklsb-[id number]-rnueaawmqt n phenotype and level TB stimulated gamma [...] None recorded. Lab lipid panel, serum [address] (Lab), [address] [place], [address], 5 14:40:10 CBC w/ auto diff 2023 [facility] (Lab), [address] [place], [address], 4 15:52:23 CMP, serum or plasma 2023 [facility] (Lab), [address] [place], [address], 4 16:38:13 TSH, serum or plasma [address] (Lab), [address] [place], [address], 5 14:40:10 vitamin D, 25-hydroxy, total, serum [address] (Lab), [address] [place], [address], 5 14:40:09 microalbumi n, urine [address] (Lab), [address] [place], [address], 5 14:40:09 HbA1c (hemoglobin A1c), blood [address] (Lab), [address] [place], [address], 5 14:40:09 vitamin B12 + folate, serum or blood 2023 [facility]24 [email or web address] [address] [place] [address] (Lab), [address] [place], [address], 5 14:40:10 lipid panel, serum 2023 024 [facility] (Lab), [address] [place], [address], 4 18:28:48 CBC w/ auto diff 2023 024 [facility] (Lab), [address] [place], [address], 4 19:17:17 CMP, serum or plasma 2023 024 [facility] (Lab), [address] [place], [address], 4 18:28:56 TSH, serum or plasma 2023 024 [facility] (Lab), [address] [place], [address], 4 19:04:13 vitamin D, 25-hydroxy, total, serum [address] (Lab), [address] [place], [address], 5 12:34:40 microalbumi n, urine 2023 024 [facility] (Lab), [address] [place], [address], 4 18:27:48 HbA1c (hemoglobin A1c), blood [address] (Lab), [address] [place], [address], 5 12:34:40 vitamin B12 + folate, serum or blood [address] (Lab), [address] [place], [address], 5 12:34:40 lipid panel, serum 2023 024 [facility] (Lab), [address] [place], [address], 4 18:36:55 CBC w/ auto diff 2023 024 [facility] (Lab), [address] [place], [address], 4 15:10:56 CMP, serum or plasma 2023 024 [facility] (Lab), [address] [place], [address], 4 18:37:20 TSH, serum or plasma 2023 024 [facility] (Lab), [address] [place], [address], 4 19:06:07 vitamin D, 25-hydroxy, total, serum [address] (Lab), [address] [place], [address], 4 14:29:36 microalbumi n, urine 2023 024 [facility] (Lab), [address] [place], [address], 4 17:13:34 HbA1c (hemoglobin A1c), blood [address] (Lab), [address] [place], [address], 4 14:29:35 vitamin B12 + folate, serum or blood [email or web address] [facility] (Lab), [address] [place], [address], 4 14:29:36 alpha-1-ant itrypsin (aat) phenotype, serum 2023 024 [email or web address] [address] [place] [address] (Lab), [address] [place], [address], 4 12:41:51 BNP (B-type natriuretic peptide), serum or plasma [address] [facility] (Lab), [address] [place], [address], 4 14:57:56 ige, total, serum 2023 0[email or web address] (Lab), [address] [place], [address], 4 12:41:51 tb (M tuberculosi s), ifn-gamma marichuy, blood 2023 [email or web address] [facility] (Lab), [address] [place], [address], 4 12:41:52 eosinophil count, manual, blood (OBS) 2023 [email or web address] [place] [address] (Lab), [address] [place], [address], 4 12:41:52 igg subclasses 1+2+3+4, serum [email or web address] [place] [address] (Lab), [address] [place], [address], 4 12:41:52 respiratory allergen panel - [facility] a [email or web address] (Lab), [address] [place], [address], 4 12:41:52 respiratory allergen panel - [facility] b [email or web address] (Lab), [address] [place], [address], 4 12:41:52 lipid panel, serum 2023 024 [facility] (Lab), [address] [place], [address], 4 12:25:43 CMP, serum or plasma 2023 024 [facility] (Lab), [address] [place], [address], 4 12:25:54 CBC w/ auto diff 2023 024 [facility] (Lab), [address] [place], [address], 4 12:15:24 TSH + free T4, serum [email or web address] [place] [address] (Lab), [address] [place], [address], 4 09:15:57 vitamin D, 25-hydroxy, total, serum [email or web address] [place] [address] (Lab), [address] [place], [address], 4 09:15:57 microalbumi n, urine [address] [facility] (Lab), [address] [place], [address], 4 12:25:28 HbA1c (hemoglobin A1c), blood [address] (Lab), [address] [place], [address], 4 09:15:57 vitamin B12 + folate, serum or blood [address] (Lab), [address] [place], [address], 4 09:15:58 Referral obstetricia n and gynecologis t referral - Please call patient to schedule. 2023 [address]24 [email or web address] 6 Cristina Stover MD, [address] [facility] [address], [place], [address], 5 15:42:[address] referral 2023 024 Gray Zeng MD, [address] [place], [address], 4 12:11:13 cardiologis t referral 2023 024 [place], [address], [address], [place], [address], 4 17:39:44 orthopedic surgeon referral - Please call patient to schedule. 2023 024 [email or web address] Violet Mccloud TALENT DEVELOPMENT ANALYST, [address] , [place], [address], 5 15:42:42 gynecologis t referral - Please call patient to schedule. 2023 024 [email or web address] 6 Cristina Stover MD, [address] [facility] [address], [place], [address], 5 15:42:42 hematologis t referral - Please call patient to schedule. 2023 024 EUN Llanes MD, [address], [place], [address], 5 13:51:11 middle school assistant principal referral - Please call patient to schedule. 2023 024 [email or web address] 6 Castillo Huynh DPM, [address] [facility], [facility], [place], [address], 5 15:42:42 endocrinolo gy referral 2023 024 [email or web address] [place], [address] [facility], [place], [address], 4 12:23:02 obstetricia n and gynecologis t referral 2023 024 Cristina Stover MD, [address] [facility] [address], [place], [address], 4 09:43:20 orthopedic surgeon referral 2023 024 [email or web address] Dru Graham MD, [address] [facility], [place], [address], 4 09:43:[address] referral 2023 024 [email or web address] Gray Zeng MD, [address] [facility] [place], [address], 4 09:43:22 gynecologis t referral 2023 024 [email or web address] Cristina Stover MD, [address] [facility] [address], [place], [address], 4 09:43:22 cardiologis t referral 2023 024 [place], [address], [address], [place], [address], 4 09:43:21 middle school assistant principal referral 2023 024 Castillo Huynh DPM, [address], [place], [address], 4 09:43:19 endocrinolo gy referral 2023 024 [email or web address] Ace Mercado MD, [address], [place], [address], 4 09:43:20 obstetricia n and gynecologis t referral 2023 024 [email or web address] 6 Cristina Stover MD, [address], [place], [address], 5 12:46:11 orthopedic surgeon referral 2023 024 [email or web address] 6 Dru Graham MD, [address] [facility], [place], [address], 5 08:28:37 cardiologis t referral 2023 024 [email or web address] 6 [place], [address], [address], [place], [address], 5 12:46:12 middle school assistant principal referral 2023 024 [email or web address] 6 Castillo Huynh DPM, [address], [place], [address], 5 08:45:29 endocrinolo gy referral 2023 024 [email or web address] 6 Ace Mercado MD, [address], [place], [address], 5 09:29:49 obstetricia n and gynecologis t referral 2023 024 [email or web address] 6 Cristina Stover MD, [address], [place], [address], 4 08:37:30 cardiologis t referral 2023 024 [email or web address] 6 [place], [address], [address], [place], [address], 4 08:37:31 middle school assistant principal referral 2023 024 [email or web address] 6 Castillo Huynh DPM, [address] [facility], [place], [address], 4 08:37:12 endocrinolo gy referral 2023 024 [email or web address] 6 Ace Mercado MD, [address], [place], [address], 5 09:20:06 Procedures None recorded. Surgeries None recorded. Imaging None recorded. Medication Orders nystatin 100,000 unit/gram topical cream [email or web address] [address] Pharm[address] [facility], [address] [place] [address], [address], 4 18:21:13 albuterol sulfate HFA 90 mcg/actuati on aerosol inhaler 2023 024 [facility], [address] [place] [address], [address], 4 11:17:13 Patient TargetsNo targets recorded. Patient Instructions Encounter Date Encounter Id Patient Instructions Last Modified By Organization Details Last Modified Time 09/25/2023 [id number] diabetic eye exam* [email or web address] Not avail able 03/31/2024 10:36:46 12/26/2023 [id number] complete PFT w/ post bronchodilator spirometry* EUN Not available 02/11/2024 10:47:23 01/15/2024 [id number] diabetic eye exam* [email or web address] Not avail able 07/14/2024 12:45:51 02/21/2024 [id number] diabetic eye exam* [email or web address] Not avai lable 08/19/2024 08:45:46 04/23/2024 [id number] diabetic eye exam* [email or web address] Not avai lable 10/20/2024 08:40:02 Reason for Referral Musical Instrument Supervisor Referral for Type 2 diabetes mellitus without complication Referring Physician: Hernan Madden Internal Medicine, Encounter Date: 09/25/2023 Endocrinology Referral for T ype 2 diabetes mellitus without complication Referring Physician: Devorah Gomes, Encounter Date: 09/25/2023 Assistant Director And Gynecologis t Referral for Gynecologic examination Referring Physician: Devorah Gomes Medicine, Encounter Date: 09/25/2023 Test Baker Referral for Ta chycardia Referring Physician: Devorah Gomes, Encounter Date: 09/25/2023 Musical Instrument Supervisor Referral for Type 2 diabetes mellitus without complication Referring Physician: Devorah Gomes, Encounter Date: 01/15/2024 Endocrinology Referral for T ype 2 diabetes mellitus without complication Referring Physician: Devorah Gomes, Encounter Date: 01/15/2024 Assistant Director And Gynecologis t Referral for Gynecologic examination Referring Physician: Devorah Gomes, Encounter Date: 01/15/2024 Test Baker Referral for Ta chycardia Referring Physician: Devorah Gomes, Encounter Date: 01/15/2024 Orthopedic Surgeon Referral for Pain of bilateral hip joints Referring Physician: Devorah Gomes Medicine, Encounter Date: 01/15/2024 Musical Instrument Supervisor Referral for Type 2 diabetes mellitus without complication Referring Physician: Devorah Gomes Medicine, Encounter Date: 02/21/2024 Endocrinology Referral for T ype 2 diabetes mellitus without complication Referring Physician: Hernan Madden Internal Medicine, Encounter Date: 02/21/2024 Assistant Director And Gynecologis t Referral for Gynecologic examination Referring Physician: Devorah Gomes Medicine, Encounter Date: 02/21/2024 Test Baker Referral for Ta chycardia Referring Physician: Devorah Gomes, Encounter Date: 02/21/2024 Orthopedic Surgeon Referral for Pain of bilateral hip joints Referring Physician: Devorah Gomes Medicine, Encounter Date: 02/21/2024 Seafood Specialist Referral for D yspnea on exertion Referring Physician: Devorah Gomes Medicine, Encounter Date: 02/21/2024 Top Distribution Executive Referral for Hy pertrophy of vulva Referring Physician: Devorah Gomes, Encounter Date: 02/21/2024 Musical Instrument Supervisor Referral for Type 2 diabetes mellitus without complication Please call patient to schedule. Referring Physician: Devorah Gomes Medicine, Encounter Date: 04/23/2024 Endocrinology Referral for T ype 2 diabetes mellitus without complication Referring Physician: Devorah Gomes Medicine, Encounter Date: 04/23/2024 Assistant Director And Gynecologis t Referral for Gynecologic examination Please call patient to schedule. Referring Physician: Devorah Gomes, Encounter Date: 04/23/2024 Test Baker Referral for Ta chycardia Referring Physician: Devorah Gomes Medicine, Encounter Date: 04/23/2024 Orthopedic Surgeon Referral for Pain of bilateral hip joints Please call patient to schedule. Referring Physician: Hernan Madden Internal Medicine, Encounter Date: 04/23/2024 Seafood Specialist Referral for D yspnea on exertion Referring Physician: Hernan Madden Internal Medicine, Encounter Date: 04/23/2024 Top Distribution Executive Referral for Hy pertrophy of vulva Please call patient to schedule. Referring Physician: Hernan Madden Internal Medicine, Encounter Date: 04/23/2024 Please call patient to noel badillo. Referring Physician: Hernan Madden Internal Medicine, Encounter Date: 04/23/2024 Results Created Date Observation Date Name Description Value Unit Range Abnormal Flag Note LastModifiedBy Organization Detail LastModifiedTime 09/28/19 24 09/28/2023 CBC/C OMPLE TE BLD COUNT W/DIF F white blood cells 10.0 x10'3 /uL 4.2-[address] [facility] (Lab) [address] [place], [address], 09/28/2023 12:15:24 09/28/19 24 09/28/2023 CBC/C OMPLE TE BLD COUNT W/DIF F red blood cells 4.50 x10'6 /uL 3.80-[address] [facility] (Lab) [address] [place], [address], 09/28/2023 12:15:24 09/28/19 24 09/28/2023 CBC/C OMPLE TE BLD COUNT W/DIF F hemoglobin 12.9 g/dL 12.0-[address] [facility] (Lab) [address] [place], [address], 09/28/2023 12:15:24 09/28/19 24 09/28/2023 CBC/C OMPLE TE BLD COUNT W/DIF F hematocrit 40.2 % 35.7-[address] [facility] (Lab) [address] [place], [address], 09/28/2023 12:15:24 09/28/19 24 09/28/2023 CBC/C OMPLE TE BLD COUNT W/DIF F mean red cell volume 89.3 fL 82.0-[address] [facility] (Lab) [address] [place], [address], 09/28/2023 12:15:24 09/28/19 24 09/28/2023 CBC/C OMPLE TE BLD COUNT W/DIF F mean red cell hemoglobin 28.7 pg 27.0-[address] [facility] (Lab) [address] [place], [address], 09/28/2023 12:15:24 09/28/19 24 09/28/2023 CBC/C OMPLE TE BLD COUNT W/DIF F mean RBC HGB concentratio n 32.1 g/dL 31.0-[address] [facility] (Lab) [address] [place], [address], 09/28/2023 12:15:24 09/28/19 24 09/28/2023 CBC/C OMPLE TE BLD COUNT W/DIF F red cell distribution width 12.6 % 11.8-[address] [facility] (Lab) [address] [place], [address], 09/28/2023 12:15:24 09/28/19 24 09/28/2023 CBC/C OMPLE TE BLD COUNT W/DIF F platelets 282 x10'3 /uL 150-[address] [facility] (Lab) [address] [place], [address], 09/28/2023 12:15:24 09/28/19 24 09/28/2023 CBC/C OMPLE TE BLD COUNT W/DIF F mean platelet volume 10.6 fL 9.0-12 .4 Not Available [facility] (Lab) [address] [place], [address], 09/28/2023 12:15:24 09/28/19 24 09/28/2023 CBC/C OMPLE TE BLD COUNT W/DIF F neutrophils 54.7 % 39.0-7 2.0 Not Available [facility] (Lab) [address] [place], [address], 09/28/2023 12:15:24 09/28/1909/28/2023 CBC/C OMPLE TE BLD COUNT W/DIF F lymphocytes 33.0 % 16.0-[address] [facility] (Lab) [address] [place], [address], 09/28/2023 12:15:24 09/28/19 24 09/28/2023 CBC/C OMPLE TE BLD COUNT W/DIF F monocytes 9.2 % 5.0-12 .0 Not Available [facility] (Lab) [address] [place], [address], 09/28/2023 12:15:24 09/28/19 24 09/28/2023 CBC/C OMPLE TE BLD COUNT W/DIF F eosinophils 1.3 % 1.0-7. 0 Not Available [facility] (Lab) [address] [place], [address], 09/28/2023 12:15:24 09/28/1909/28/2023 CBC/C OMPLE TE BLD COUNT W/DIF F basophils 0.7 % 0.0-2. [address] [facility] (Lab) [address] [place], [address], 09/28/2023 12:15:24 09/28/19 24 09/28/2023 CBC/C OMPLE TE BLD COUNT W/DIF F immature granulocytes 1.1 % 0.00-0 [address] [facility] (Lab) [address] [place], [address], 09/28/2023 12:15:24 09/28/19 24 09/28/2023 CBC/C OMPLE TE BLD COUNT W/DIF F neutrophils, absolute count 5.44 x10'3 /uL 1.5-8. [address] [facility] (Lab) [address] [place], [address], 09/28/2023 12:15:24 09/28/19 24 09/28/2023 CBC/C OMPLE TE BLD COUNT W/DIF F lymphocytes, absolute count 3.29 x10'3 /uL 1.07-[address] [facility] (Lab) [address] [place], [address], 09/28/2023 12:15:24 09/28/19 24 09/28/2023 CBC/C OMPLE TE BLD COUNT W/DIF F monocytes, absolute count 0.92 x10'3 /uL 0.29-[address] [facility] (Lab) [address] [place], [address], 09/28/2023 12:15:24 09/28/1909/28/2023 CBC/C OMPLE TE BLD COUNT W/DIF F eosinophils, absolute count 0.13 x10'3 /uL 0.02-[address] [facility] (Lab) [address] [place], [address], 09/28/2023 12:15:24 09/28/19 24 09/28/2023 CBC/C OMPLE TE BLD COUNT W/DIF F basophils, absolute count 0.07 x10'3 /uL 0.01-[address] [facility] (Lab) [address] [place], [address], 09/28/2023 12:15:24 09/28/19 24 09/28/2023 CBC/C OMPLE TE BLD COUNT W/DIF F immature granulocytes ,absolute 0.11 x10'3 /uL 0.00-0 [address] [facility] (Lab) [address] [place], [address], 09/28/2023 12:15:24 09/28/19 24 09/28/2023 CBC/C OMPLE TE BLD COUNT W/DIF F nucleated red blood cells 0.0 % -0 Not Available [facility] (Lab) [address] [place], [address], 09/28/2023 12:15:24 09/28/19 24 09/28/2023 CBC/C OMPLE TE BLD COUNT W/DIF F NRBC# 0.00 x10'3 /uL Not Available [facility] (Lab) [address] [place], [address], 09/28/2023 12:15:24 09/28/1909/28/2023 MICRO ALBUM IN RANDO M URINE microalbumin , urine 7.0 mg/L 0.0-[address] [facility] (Lab) [address] [place], [address], 09/28/2023 12:25:28 09/28/1909/28/2023 LIPID PANEL cholesterol 191 mg/dL 140-19 9 [facility] NSUS RECOM MENDA TION FOR YANELY STERO L: ADULT CHILD LOW RISK: <200 <170 BORDE RLINE : <200- 239 ----- HIGH RISK: >240 >[address] [facility] (Lab) [address] [place], [address], 09/28/2023 12:25:43 09/28/1909/28/2023 LIPID PANEL triglyceride s 168 mg/dL 0-150 high NIH [facility] NSUS REPOR T RECOM MENDA TION FOR TRIGL YCERI YAZMIN: ADULT CHILD LOW RISK: <150 ----- BODER LINE: 150-1 99 ----- HIGH RISK: >200 ----- Not [address] [facility] (Lab) [address] [place], [address], 09/28/2023 12:25:43 09/28/19 24 09/28/2023 LIPID PANEL HDL cholesterol 48 mg/dL 40- Not Available [facility] (Lab) [address] [place], [address], 09/28/2023 12:25:43 09/28/19 24 09/28/2023 LIPID PANEL LDL cholesterol, calculated 109 mg/dL 0-130 [facility] NSUS REPOR T RECOM MENDA TIONS FOR LDL: ADULT CHILD LOW RISK <130 <110 (OPTI MAL LDL) <100 ----- CRARIE RLINE : 130-1 59 ----- HIGH RISK: >160 >130 A TRIGL YCERI DE RESUL T >400 INVAL IDATE S THE CALCU LATIO N FOR LDL FRACT IONAT ION - THE LDL RESUL T WILL NOT BE REPOR VIKTOR. Not Available [facility] (Lab) [address] [place], [address], 09/28/2023 12:25:43 09/28/19 24 09/28/2023 COMP MET PANEL /LIVE R sodium 136 mmol/ L 137-[address] [facility] (Lab) [address] [place], [address], 09/28/2023 12:25:54 09/28/19 24 09/28/2023 COMP MET PANEL /LIVE R potassium 4.1 mmol/ L 3.5-5. [address] [facility] (Lab) [address] [place], [address], 09/28/2023 12:25:54 09/28/19 24 09/28/2023 COMP MET PANEL /LIVE R chloride 105 mmol/ L 98-107 Not Available [facility] (Lab) [address] [place], [address], 09/28/2023 12:25:54 09/28/19 24 09/28/2023 COMP MET PANEL /LIVE R carbon dioxide 25 mmol/ L 22-30 Not Available [facility] (Lab) [address] [place], [address], 09/28/2023 12:25:54 09/28/19 24 09/28/2023 COMP MET PANEL /LIVE R anion gap 10.1 mmol/ L 14-22 low Not Available [facility] (Lab) [address] [place], [address], 09/28/2023 12:25:54 09/28/19 24 09/28/2023 COMP MET PANEL /LIVE R glucose 153 mg/dL 70-[address] [facility] (Lab) [address] [place], [address], 09/28/2023 12:25:54 09/28/19 24 09/28/2023 COMP MET PANEL /LIVE R BUN 14 mg/dL 8-19 Not Available [facility] (Lab) [address] [place], [address], 09/28/2023 12:25:54 09/28/19 24 09/28/2023 COMP MET PANEL /LIVE R creatinine 0.53 mg/dL 0.66-1 .25 low Not Available [facility] (Lab) [address] [place], [address], 09/28/2023 12:25:54 09/28/19 24 09/28/2023 COMP MET PANEL /LIVE R GFR >60 Refer ence Range : [place] ge GFR Healt hy Adult : >60 [...] or ethni c subgr oups, such as Hismusa nics. Outsi de the valid ated tammie [...] calcu lator is avail able on the [facility] websi te: [email or web address] :[email or web address] ofess ional [email or web address] qi/gf r_cal culat or Not Available [facility] (Lab) [address] [place], [address], 09/28/2023 12:25:54 09/28/19 24 09/28/2023 COMP MET PANEL /LIVE R alkaline phosphatase 94 U/L 38-126 Not Available [facility] (Lab) [address] [place], [address], 09/28/2023 12:25:54 09/28/19 24 09/28/2023 COMP MET PANEL /LIVE R alanine aminotransfe rase 23 U/L 0-35 Not Available [facility] (Lab) [address] [place], [address], 09/28/2023 12:25:54 09/28/19 24 09/28/2023 COMP MET PANEL /LIVE R aspartate aminotransfe rase 24 U/L 15-37 Not Available [facility] (Lab) [address] [place], [address], 09/28/2023 12:25:54 09/28/19 24 09/28/2023 COMP MET PANEL /LIVE R bilirubin, total 0.20 mg/dL 0.20-[address] [facility] (Lab) [address] [place], [address], 09/28/2023 12:25:54 09/28/19 24 09/28/2023 COMP MET PANEL /LIVE R bilirubin, conjugated (direct) 0.00 mg/dL 0.00-[address] [facility] (Lab) [address] [place], [address], 09/28/2023 12:25:54 09/28/19 24 09/28/2023 COMP MET PANEL /LIVE R biliurubin,u ncong. (indirect) 0.00 mg/dL 0.00-[address] [facility] (Lab) [address] [place], [address], 09/28/2023 12:25:54 09/28/19 24 09/28/2023 COMP MET PANEL /LIVE R calcium 9.3 mg/dL 8.4-[address] [facility] (Lab) [address] [place], [address], 09/28/2023 12:25:54 09/28/19 24 09/28/2023 COMP MET PANEL /LIVE R total protein 6.3 g/dL 6.3-8. 2 Not Available [facility] (Lab) [address] [place], [address], 09/28/2023 12:25:54 09/28/19 24 09/28/2023 COMP MET PANEL /LIVE R albumin 4.1 g/dL 3.4-5. [address] [facility] (Lab) [address] [place], [address], 09/28/2023 12:25:54 09/28/19 24 09/28/2023 COMP MET PANEL /LIVE R globulin 2.2 g/dL 2.6-4. [address] [facility] (Lab) [address] [place], [address], 09/28/2023 12:25:54 09/28/19 24 09/28/2023 COMP MET PANEL /LIVE R A/G ratio 1.9 ratio 1.0-2. [address] [facility] (Lab) [address] [place], [address], 09/28/2023 12:25:54 09/28/19 24 09/28/2023 T4 FREE free T4 0.88 NG/dL 0.78-[address] [facility] (Lab) [address] [place], [address], 09/28/2023 12:35:36 09/28/19 24 09/28/2023 VITAM IN D 25-HY DROXY [id number] 38.4 NG/mL 30-100 Vitam in D Statu s: Defic ient: <20 ng/mL Insuf ficie nt: 20-29 ng/mL Suffi cient : 30-10 0 ng/mL Not Available [facility] (Lab) [address] [place], [address], 09/28/2023 12:35:47 09/28/19 24 09/28/2023 TSH thyroid-stim ulating hormone 0.989 uIU/m L 0.465- 4.[address] [facility] (Lab) [address] [place], [address], 09/28/2023 13:09:13 09/28/19 24 09/28/2023 VITAM IN B12 (TAHIR DESMOND ) vb12 621 pg/mL 239-[address] [facility] (Lab) [address] [place], [address], 09/28/2023 13:24:00 09/28/19 24 09/28/2023 FOLAT E, SERUM /PLAS MA folate 15.4 NG/mL 2.76-2 0.0 Not Available [facility] [facility] (Lab) [address] [place], [address], 09/28/2023 13:24:05 09/28/19 24 09/28/2023 HEMOG LOBIN A1C HA1C 7.1 % 4.0-6. 0 high Diabe danay Scree dani Crite sánchez: <5.7% Consi stent with absen ce of diabe danay 5.7-6 .4% Consi stent with incre ased risk for diabe danay (pred iabet es) >OR=6 .5% Consi stent with diabe danay REFER ENCE: Diabe danay Care 2015, 39(Mccloud ppl.1 ):s13 -s[address] [facility] (Lab) [address] [place], [address], 09/28/2023 19:31:13 01/21/20 24 01/21/2024 CBC/C OMPLE TE BLD COUNT W/DIF F white blood cells 9.4 x10'3 /uL 4.2-[address] [facility] (Lab) [address] [place], [address], 01/21/2024 15:10:56 01/21/20 24 01/21/2024 CBC/C OMPLE TE BLD COUNT W/DIF F red blood cells 4.36 x10'6 /uL 3.80-[address] [facility] (Lab) [address] [place], [address], 01/21/2024 15:10:56 01/21/20 24 01/21/2024 CBC/C OMPLE TE BLD COUNT W/DIF F hemoglobin 12.6 g/dL 12.0-[address] [facility] (Lab) [address] [place], [address], 01/21/2024 15:10:56 01/21/20 24 01/21/2024 CBC/C OMPLE TE BLD COUNT W/DIF F hematocrit 39.4 % 35.7-[address] [facility] (Lab) [address] [place], [address], 01/21/2024 15:10:56 01/21/20 24 01/21/2024 CBC/C OMPLE TE BLD COUNT W/DIF F mean red cell volume 90.4 fL 82.0-[address] [facility] (Lab) [address] [place], [address], 01/21/2024 15:10:56 01/21/20 24 01/21/2024 CBC/C OMPLE TE BLD COUNT W/DIF F mean red cell hemoglobin 28.9 pg 27.0-[address] [facility] (Lab) [address] [place], [address], 01/21/2024 15:10:56 01/21/20 24 01/21/2024 CBC/C OMPLE TE BLD COUNT W/DIF F mean RBC HGB concentratio n 32.0 g/dL 31.0-[address] [facility] (Lab) [address] [place], [address], 01/21/2024 15:10:56 01/21/20 24 01/21/2024 CBC/C OMPLE TE BLD COUNT W/DIF F red cell distribution width 12.4 % 11.8-[address] [facility] (Lab) [address] [place], [address], 01/21/2024 15:10:56 01/21/20 24 01/21/2024 CBC/C OMPLE TE BLD COUNT W/DIF F platelets 277 x10'3 /uL 150-[address] [facility] (Lab) [address] [place], [address], 01/21/2024 15:10:56 01/21/20 24 01/21/2024 CBC/C OMPLE TE BLD COUNT W/DIF F mean platelet volume 10.8 fL 9.0-12 .4 Not Available [facility] (Lab) [address] [place], [address], 01/21/2024 15:10:56 01/21/20 24 01/21/2024 CBC/C OMPLE TE BLD COUNT W/DIF F neutrophils 56.2 % 39.0-7 2.0 Not Available [facility] (Lab) [address] [place], [address], 01/21/2024 15:10:56 01/21/20 24 01/21/2024 CBC/C OMPLE TE BLD COUNT W/DIF F lymphocytes 32.5 % 16.0-4 7.0 Not Available [facility] (Lab) [address] [place], [address], 01/21/2024 15:10:56 01/21/20 24 01/21/2024 CBC/C OMPLE TE BLD COUNT W/DIF F monocytes 8.9 % 5.0-[address] [facility] (Lab) [address] [place], [address], 01/21/2024 15:10:56 01/21/20 24 01/21/2024 CBC/C OMPLE TE BLD COUNT W/DIF F eosinophils 1.1 % 1.0-7. [address] [facility] (Lab) [address] [place], [address], 01/21/2024 15:10:56 01/21/20 24 01/21/2024 CBC/C OMPLE TE BLD COUNT W/DIF F basophils 0.6 % 0.0-2. [address] [facility] (Lab) [address] [place], [address], 01/21/2024 15:10:56 01/21/20 24 01/21/2024 CBC/C OMPLE TE BLD COUNT W/DIF F immature granulocytes 0.7 % 0.00-0 .[address] [facility] (Lab) [address] [place], [address], 01/21/2024 15:10:56 01/21/20 24 01/21/2024 CBC/C OMPLE TE BLD COUNT W/DIF F neutrophils, absolute count 5.26 x10'3 /uL 1.5-8. [address] [facility] (Lab) [address] [place], [address], 01/21/2024 15:10:56 01/21/20 24 01/21/2024 CBC/C OMPLE TE BLD COUNT W/DIF F lymphocytes, absolute count 3.04 x10'3 /uL 1.07-[address] [facility] (Lab) [address] [place], [address], 01/21/2024 15:10:56 01/21/20 24 01/21/2024 CBC/C OMPLE TE BLD COUNT W/DIF F monocytes, absolute count 0.83 x10'3 /uL 0.29-[address] [facility] (Lab) [address] [place], [address], 01/21/2024 15:10:56 01/21/20 24 01/21/2024 CBC/C OMPLE TE BLD COUNT W/DIF F eosinophils, absolute count 0.10 x10'3 /uL 0.02-[address] [facility] (Lab) [address] [place], [address], 01/21/2024 15:10:56 01/21/20 24 01/21/2024 CBC/C OMPLE TE BLD COUNT W/DIF F basophils, absolute count 0.06 x10'3 /uL 0.01-[address] [facility] (Lab) [address] [place], [address], 01/21/2024 15:10:56 01/21/20 24 01/21/2024 CBC/C OMPLE TE BLD COUNT W/DIF F immature granulocytes ,absolute 0.07 x10'3 /uL 0.00-0 .[address] [facility] (Lab) [address] [place], [address], 01/21/2024 15:10:56 01/21/20 24 01/21/2024 CBC/C OMPLE TE BLD COUNT W/DIF F nucleated red blood cells 0.0 % -0 Not Available [facility] (Lab) [address] [place], [address], 01/21/2024 15:10:56 01/21/20 24 01/21/2024 CBC/C OMPLE TE BLD COUNT W/DIF F NRBC# 0.00 x10'3 /uL Not Available [facility] (Lab) [address] [place], [address], 01/21/2024 15:10:56 01/21/20 24 01/21/2024 HEMOG LOBIN A1C HA1C 7.1 % 4.0-6. 0 high Diabe danay Scree dani Crite sánchez: <5.7% Consi stent with absen ce of diabe danay 5.7-6 .4% Consi stent with incre ased risk for diabe danay (pred iabet es) >OR=6 .5% Consi stent with diabe danay REFER ENCE: Diabe danay Care 2016, 39(Mccloud ppl.1 ):s13 -s[address] [facility] (Lab) [address] [place], [address], 01/21/2024 16:48:14 01/21/20 24 01/21/2024 MICRO ALBUM IN RANDO M URINE microalbumin , urine 14.8 mg/L 0.0-[address] [facility] (Lab) [address] [place], [address], 01/21/2024 17:13:33 01/21/20 24 01/21/2024 LIPID PANEL cholesterol 120 mg/dL 140-19 9 low NIH ELKE NSUS RECOM MENDA TION FOR YANELY STERO L: ADULT CHILD LOW RISK: <200 <170 BORDE RLINE : <200- 239 ----- HIGH RISK: >240 >[address] [facility] (Lab) [address] [place], [address], 01/21/2024 18:36:55 01/21/20 24 01/21/2024 LIPID PANEL triglyceride s 173 mg/dL 0-150 high NIH ELKE NSUS REPOR T RECOM MENDA TION FOR TRIGL YCERI YAZMIN: ADULT CHILD LOW RISK: <150 ----- BODER LINE: 150-1 99 ----- HIGH RISK: >200 ----- Not Available [facility] (Lab) [address] [place], [address], 01/21/2024 18:36:55 01/21/20 24 01/21/2024 LIPID PANEL HDL cholesterol 41 mg/dL 40- Not Available [facility] (Lab) [address] [place], [address], 01/21/2024 18:36:55 01/21/20 24 01/21/2024 LIPID PANEL [...] WILL NOT BE REPOR VIKTOR. Not Available [facility] (Lab) [address] [place], [address], 01/21/2024 18:36:55 01/21/20 24 01/21/2024 COMPR EHENS RODOLFO METAB OLIC PANEL sodium 136 mmol/ L 137-14 5 low Not Available [facility] (Lab) [address] [place], [address], 01/21/2024 18:37:20 01/21/20 24 01/21/2024 COMPR EHENS RODOLFO METAB OLIC PANEL potassium 4.3 mmol/ L 3.5-5. 1 Not Available [facility] (Lab) [address] [place], [address], 01/21/2024 18:37:20 01/21/20 24 01/21/2024 COMPR EHENS RODOLFO METAB OLIC PANEL chloride 105 mmol/ L 98-107 Not Available [facility] (Lab) [address] [place], [address], 01/21/2024 18:37:20 01/21/20 24 01/21/2024 COMPR EHENS RODOLFO METAB OLIC PANEL carbon dioxide 23 mmol/ L 22-[address] [facility] (Lab) [address] [place], [address], 01/21/2024 18:37:20 01/21/20 24 01/21/2024 COMPR EHENS RODOLFO METAB OLIC PANEL anion gap 12.3 mmol/ L 14-22 low Not Available [facility] (Lab) [address] [place], [address], 01/21/2024 18:37:20 01/21/20 24 01/21/2024 COMPR EHENS RODOLFO METAB OLIC PANEL glucose 130 mg/dL 70-[address] [facility] (Lab) [address] [place], [address], 01/21/2024 18:37:20 01/21/20 24 01/21/2024 COMPR EHENS RODOLFO METAB OLIC PANEL BUN 14 mg/dL 8-[address] [facility] (Lab) [address] [place], [address], 01/21/2024 18:37:20 01/21/20 24 01/21/2024 COMPR EHENS RODOLFO METAB OLIC PANEL creatinine 0.54 mg/dL 0.66-1 [address] [facility] (Lab) [address] [place], [address], 01/21/2024 18:37:20 01/21/20 24 01/21/2024 COMPR EHENS RODOLFO METAB OLIC PANEL GFR >60 Refer ence Range : [place] ge GFR Healt hy Adult : >60 [...] or ethni c subgr oups, such as [facility] nics. Outsi de the valid ated tammie [...] calcu lator is avail able on the [facility] websi te: [email or web address] :[email or web address] rg/pr ofess ional s/kdo qi/gf r_cal culat or Not Available [facility] (Lab) [address] [place], [address], 01/21/2024 18:37:20 01/21/20 24 01/21/2024 COMPR EHENS RODOLFO METAB OLIC PANEL alkaline phosphatase 103 U/L 38-126 Not Available [facility] (Lab) [address] [place], [address], 01/21/2024 18:37:20 01/21/20 24 01/21/2024 COMPR EHENS RODOLFO METAB OLIC PANEL alanine aminotransfe rase 37 U/L 0-35 high Not Available [facility] (Lab) [address] [place], [address], 01/21/2024 18:37:20 01/21/20 24 01/21/2024 COMPR EHENS RODOLFO METAB OLIC PANEL aspartate aminotransfe rase 24 U/L 15-37 Not Available [facility] (Lab) [address] [place], [address], 01/21/2024 18:37:20 01/21/20 24 01/21/2024 COMPR EHENS RODOLFO METAB OLIC PANEL bilirubin, total 0.60 mg/dL 0.20-[address] [facility] (Lab) [address] [place], [address], 01/21/2024 18:37:20 01/21/20 24 01/21/2024 COMPR EHENS RODOLFO METAB OLIC PANEL calcium 9.3 mg/dL 8.4-[address] [facility] (Lab) [address] [place], [address], 01/21/2024 18:37:20 01/21/20 24 01/21/2024 COMPR EHENS RODOLFO METAB OLIC PANEL total protein 6.5 g/dL 6.3-8. [address] [facility] (Lab) [address] [place], [address], 01/21/2024 18:37:20 01/21/20 24 01/21/2024 COMPR EHENS RODOLFO METAB OLIC PANEL albumin 4.3 g/dL 3.4-5. [address] [facility] (Lab) [address] [place], [address], 01/21/2024 18:37:20 01/21/20 24 01/21/2024 COMPR EHENS RODOLFO METAB OLIC PANEL globulin 2.2 g/dL 2.6-4. [address] [facility] (Lab) [address] [place], [address], 01/21/2024 18:37:20 01/21/20 24 01/21/2024 COMPR EHENS RODOLFO METAB OLIC PANEL A/G ratio 2.0 ratio 1.0-2. [address] [facility] (Lab) [address] [place], [address], 01/21/2024 18:37:20 01/21/20 24 01/21/2024 VITAM IN D 25-HY DROXY vd25oh 38.5 NG/mL 30-100 Vitam in D Statu s: Defic ient: <20 ng/mL Insuf ficie nt: 20-29 ng/mL Suffi cient : 30-10 0 ng/mL Not Available [facility] (Lab) [address] [place], [address], 01/21/2024 18:58:38 01/21/20 24 01/21/2024 TSH W/REF KAELYN FT4 TSH with reflex free T4 0.625 uIU/m L 0.465- 4.[address] [facility] (Lab) [address] [place], [address], 01/21/2024 19:06:07 01/21/20 24 01/21/2024 VITAM IN B12 (TAHIR DESMOND ) vb12 784 pg/mL 239-[address] [facility] (Lab) [address] [place], [address], 01/21/2024 19:47:31 01/21/2001/21/2024 FOLAT E, SERUM /PLAS MA folate >20.0 NG/mL 2.76-[address] [facility] (Lab) [address] [place], [address], 01/21/2024 19:47:38 04/14/2004/14/2024 MICRO ALBUM IN RANDO M URINE microalbumin , urine 78.8 mg/L 0.0-16 .6 high Not Available [facility] (Lab) [address] [place], [address], 04/14/2024 18:27:48 04/14/2004/14/2024 LIPID PANEL cholesterol 133 mg/dL 140-19 9 low NIH EL[facility] NSUS RECOM MENDA TION FOR YANELY STERO L: ADULT CHILD LOW RISK: <200 <170 BORDE RLINE : <200- 239 ----- HIGH RISK: >240 >200 Not Available [facility] (Lab) [address] [place], [address], 04/14/2024 18:28:48 04/14/2004/14/2024 LIPID PANEL triglyceride s 187 mg/dL 0-150 high NIH ELKE NSUS REPOR T RECOM MENDA TION FOR TRIGL YCERI YAZMIN: ADULT CHILD LOW RISK: <150 ----- BODER LINE: 150-1 99 ----- HIGH RISK: >200 ----- Not Available [facility] (Lab) [address] [place], [address], 04/14/2024 18:28:48 04/14/2004/14/2024 LIPID PANEL HDL cholesterol 49 mg/dL 40- Not Available [facility] (Lab) [address] [place], [address], 04/14/2024 18:28:48 04/14/2004/14/2024 LIPID PANEL LDL cholesterol, [...] WILL NOT BE REPOR VIKTOR. Not Available [facility] (Lab) [address] [place], [address], 04/14/2024 18:28:48 04/14/2004/14/2024 COMPR EHENS RODOLFO METAB OLIC PANEL sodium 135 mmol/ L 137-[address] [facility] (Lab) [address] [place], [address], 04/14/2024 18:28:56 04/14/2004/14/2024 COMPR EHENS RODOLFO METAB OLIC PANEL potassium 4.3 mmol/ L 3.5-5. 1 Not Available [facility] (Lab) [address] [place], [address], 04/14/2024 18:28:56 04/14/2004/14/2024 COMPR EHENS RODOLFO METAB OLIC PANEL chloride 101 mmol/ L 98-[address] [facility] (Lab) [address] [place], [address], 04/14/2024 18:28:56 04/14/2004/14/2024 COMPR EHENS RODOLFO METAB OLIC PANEL carbon dioxide 23 mmol/ L 22-[address] [facility] (Lab) [address] [place], [address], 04/14/2024 18:28:56 04/14/2004/14/2024 COMPR EHENS RODOLFO METAB OLIC PANEL anion gap 15.3 mmol/ L 14-[address] [facility] (Lab) [address] [place], [address], 04/14/2024 18:28:56 04/14/2004/14/2024 COMPR EHENS RODOLFO METAB OLIC PANEL glucose 165 mg/dL 70-[address] [facility] (Lab) [address] [place], [address], 04/14/2024 18:28:56 04/14/2004/14/2024 COMPR EHENS RODOLFO METAB OLIC PANEL BUN 21 mg/dL 8-[address] [facility] (Lab) [address] [place], [address], 04/14/2024 18:28:56 04/14/2004/14/2024 COMPR EHENS RODOLFO METAB OLIC PANEL creatinine 0.55 mg/dL 0.66-1 [address] [facility] (Lab) [address] [place], [address], 04/14/2024 18:28:56 04/14/2004/14/2024 COMPR EHENS RODOLFO METAB OLIC PANEL GFR >60 Refer ence Range : [place] ge GFR Healt hy Adult : >60 [...] calcu lator is avail able on the [facility] websi te: [email or web address] :[email or web address] mikaela/pr ofess ional s/kdo qi/gf r_cal culat or Not Available [facility] (Lab) [address] [place], [address], 04/14/2024 18:28:56 04/14/2004/14/2024 COMPR EHENS RODOLFO METAB OLIC PANEL alkaline phosphatase 109 U/L 38-126 Not Available [facility] (Lab) [address] [place], [address], 04/14/2024 18:28:56 04/14/2004/14/2024 COMPR EHENS RODOLFO METAB OLIC PANEL alanine aminotransfe rase 43 U/L 0-35 high Not Available [facility] (Lab) [address] [place], [address], 04/14/2024 18:28:56 04/14/2004/14/2024 COMPR EHENS RODOLFO METAB OLIC PANEL aspartate aminotransfe rase 28 U/L 15-37 Not Available [facility] (Lab) [address] [place], [address], 04/14/2024 18:28:56 04/14/2004/14/2024 COMPR EHENS RODOLFO METAB OLIC PANEL bilirubin, total 0.50 mg/dL 0.20-[address] [facility] (Lab) [address] [place], [address], 04/14/2024 18:28:56 04/14/2004/14/2024 COMPR EHENS RODOLFO METAB OLIC PANEL calcium 9.9 mg/dL 8.4-[address] [facility] (Lab) [address] [place], [address], 04/14/2024 18:28:56 04/14/2004/14/2024 COMPR EHENS RODOLFO METAB OLIC PANEL total protein 6.4 g/dL 6.3-8. [address] [facility] (Lab) [address] [place], [address], 04/14/2024 18:28:56 04/14/2004/14/2024 COMPR EHENS RODOLFO METAB OLIC PANEL albumin 4.4 g/dL 3.4-5. [address] [facility] (Lab) [address] [place], [address], 04/14/2024 18:28:56 04/14/2004/14/2024 COMPR EHENS RODOLFO METAB OLIC PANEL globulin 2.0 g/dL 2.6-4. [address] [facility] (Lab) [address] [place], [address], 04/14/2024 18:28:56 04/14/2004/14/2024 COMPR EHENS RODOLFO METAB OLIC PANEL A/G ratio 2.2 ratio 1.0-2. [address] [facility] (Lab) [address] [place], [address], 04/14/2024 18:28:56 04/14/2004/14/2024 VITAM IN D 25-HY DROXY vd25oh 32.6 NG/mL 30-100 Vitam in D Statu s: Defic ient: <20 ng/mL Insuf ficie nt: 20-29 ng/mL Suffi cient : 30-10 0 ng/mL Not Available [facility] (Lab) [address] [place], [address], 04/14/2024 18:57:43 04/14/2004/14/2024 TSH W/REF KAELYN FT4 TSH with reflex free T4 0.916 uIU/m L 0.465- 4.680 Not Available [facility] (Lab) [address] [place], [address], 04/14/2024 19:04:13 04/14/2004/14/2024 CBC/C OMPLE TE BLD COUNT W/DIF F white blood cells 15.6 x10'3 /uL 4.2-10 .8 high Not Available [facility] (Lab) [address] [facility] [place], [address], 04/14/2024 19:17:17 04/14/2004/14/2024 CBC/C OMPLE TE BLD COUNT W/DIF F red blood cells 4.56 x10'6 /uL 3.80-[address] [facility] (Lab) [address] [place], [address], 04/14/2024 19:17:17 04/14/2004/14/2024 CBC/C OMPLE TE BLD COUNT W/DIF F hemoglobin 13.3 g/dL 12.0-[address] [facility] (Lab) [address] [place], [address], 04/14/2024 19:17:17 04/14/2004/14/2024 CBC/C OMPLE TE BLD COUNT W/DIF F hematocrit 41.2 % 35.7-[address] [facility] (Lab) [address] [place], [address], 04/14/2024 19:17:17 04/14/2004/14/2024 CBC/C OMPLE TE BLD COUNT W/DIF F mean red cell volume 90.4 fL 82.0-[address] [facility] (Lab) [address] [place], [address], 04/14/2024 19:17:17 04/14/2004/14/2024 CBC/C OMPLE TE BLD COUNT W/DIF F mean red cell hemoglobin 29.2 pg 27.0-3 3.0 Not Available [facility] (Lab) [address] [place], [address], 04/14/2024 19:17:17 04/14/2004/14/2024 CBC/C OMPLE TE BLD COUNT W/DIF F mean RBC HGB concentratio n 32.3 g/dL 31.0-3 6.0 Not Available [facility] (Lab) [address] [place], [address], 04/14/2024 19:17:17 04/14/2004/14/2024 CBC/C OMPLE TE BLD COUNT W/DIF F red cell distribution width 12.9 % 11.8-[address] [facility] (Lab) [address] [place], [address], 04/14/2024 19:17:17 04/14/2004/14/2024 CBC/C OMPLE TE BLD COUNT W/DIF F platelets 254 x10'3 /uL 150-[address] [facility] (Lab) [address] [place], [address], 04/14/2024 19:17:17 04/14/2004/14/2024 CBC/C OMPLE TE BLD COUNT W/DIF F mean platelet volume 10.7 fL 9.0-12 .4 Not Available [facility] (Lab) [address] [place], [address], 04/14/2024 19:17:17 04/14/2004/14/2024 CBC/C OMPLE TE BLD COUNT W/DIF F neutrophils 57 % 39.0-[address] [facility] (Lab) [address] [place], [address], 04/14/2024 19:17:17 04/14/2004/1404/14/2024 CBC/C OMPLE TE BLD COUNT W/DIF F lymphocytes 35 % 16.0-[address] [facility] (Lab) [address] [place], [address], 04/14/2024 19:17:17 04/14/2004/14/2024 CBC/C OMPLE TE BLD COUNT W/DIF F monocytes 8 % 5.0-[address] [facility] (Lab) [address] [place], [address], 04/14/2024 19:17:17 04/14/2004/14/2024 CBC/C OMPLE TE BLD COUNT W/DIF F neutrophils, absolute count 7.96 x10'3 /uL 1.5-8. [address] [facility] (Lab) [address] [place], [address], 04/14/2024 19:17:17 04/14/2004/14/2024 CBC/C OMPLE TE BLD COUNT W/DIF F nucleated red blood cells 0.0 % -0 Not Available [facility] (Lab) [address] [place], [address], 04/14/2024 19:17:17 04/14/2004/14/2024 CBC/C OMPLE TE BLD COUNT W/DIF F NRBC# 0.00 x10'3 /uL Not Available [facility] (Lab) [address] [place], [address], 04/14/2024 19:17:17 04/14/2004/14/2024 VITAM IN B12 (TAHIR DESMOND ) vb12 718 pg/mL 239-[address] [facility] (Lab) [address] [place], [address], 04/14/2024 19:47:06 04/14/2004/14/2024 FOLAT E, SERUM /PLAS MA folate >20.0 NG/mL 2.76-[address] [facility] (Lab) [address] [place], [address], 04/14/2024 19:47:07 04/14/20 24 04/14/2024 HEMOG LOBIN A1C HA1C 8.9 % 4.0-6. 0 high Diabe danay Scree dani Crite sánchez: <5.7% Consi stent with absen ce of diabe danay 5.7-6 .4% Consi stent with incre ased risk for diabe danay (pred iabet es) >OR=6 .5% Consi stent with diabe danay REFER ENCE: Diabe danay Care 2016, 39(Mccloud ppl.1 ):s13 -s22 [address] [facility] (Lab) [address] [place], [address], 04/14/2024 21:52:36 09/03/19 24 09/02/2023 CT, abdom en + pelvi s, w/ contr ast No observ ation record ed. [address], [address], 12/16/2023 11:52:16 10/29/19 24 10/26/2023 US, echoc ardio gram No observ ation record ed. [address] [facility] [address], [place], [address], 12/16/2023 11:50:49 12/07/19 24 12/07/2023 XR, chest , 2 view No observ ation record ed. [address], [address], 12/16/2023 11:48:14 02/03/20 24 02/03/2024 XR, chest No observ ation record ed. [address], [address], 06/12/2024 08:35:33 02/11/20 24 02/05/2024 compl ete PFT w/ post [facility] hodil ator rosibel metry * No observ ation record ed. [facility] ([employer]) [address] [place], [address], 02/11/2024 10:47:23 02/25/20 24 02/25/2024 XR, chest No observ ation record ed. [address] [place], [address], 06/12/2024 08:40:54 02/25/20 24 02/25/2024 CT, abdom en + pelvi s, w/ contr ast No observ ation record ed. [address] [place], [address], 06/12/2024 08:41:30 03/11/20 24 02/05/2024 compl ete PFT w/ post [facility] hodil ator rosibel metry * No observ ation record ed. [address] ([employer]) [address] [place], [address], 06/12/2024 08:42:24 04/28/20 24 04/28/2024 imagi ng/di agnos tic resul t No observ ation record ed. [address] [facility] [address], [place], [address], 06/12/2024 09:04:07 06/29/19 25 06/29/2024 imagi ng/di agnos tic resul t No observ ation record ed. [facility] [address] [place], [address], 06/29/2024 21:59:29 Result Notes None recorded. Problems Name Problem SNOMED Code Status Onset Date Resolution Date Notes Provider Name and Address Organization Details Recorded Time Allergic rhinitis 40618964 Active 2022 Not Available [facility] 10/23/202 3 12:23:27 Attention deficit hyperactiv ity disorder 960533522 Active 2022 Not Available [facility] 3 12:23:27 Urinary incontinen ce 358005572 Active 2022 Not Available [facility] 3 12:23:26 Kyphoscoli osis deformity of spine 610573616 Active 2023 Hernan tapia MD [address], [place], [address] , [facility] [employer] [facility] [employer] [facility] 4 11:14:35 Vitamin D deficiency 55389418 Active 2023 Hernan tapia MD [address], [place], [address] , [facility] [employer] [facility] [employer] [facility] 4 11:15:48 Gastroesop hageal reflux disease 804937099 Active 2023 RAMAN Zuniga, [facility] [employer] [facility] 4 16:52:37 Hypertroph y of vulva 89544370 Active 2023 Hernan tapia MD [address], [place], [address] , [facility] [employer] [facility] [employer] [facility] 4 12:01:44 Serum vitamin B12 below reference range 066744451 Active 2023 Hernan tapia MD [address], [place], [address] , [facility] [employer] [facility] [employer] [facility] 4 12:01:44 Hyperlipid emia 78727550 Active 2023 Hernan tapia MD [address], [place], [address] , [facility] [employer] [facility] [employer] [facility] 4 12:04:41 Pruritic rash 60376676 Active 2023 Hernan tapia MD [address], [place], [address] , [facility] 4 15:58:39 Tachycardi a 6626349 Active 2023 Hernan tapia MD [address], [place], [address] , [facility] 4 15:58:39 Gastroesop hageal reflux disease without esophagiti s 140347518 Active 2023 Hernan tapia MD [address], [place], [address] , [facility] - [facility] 4 15:58:39 Type 2 diabetes mellitus without complicati on 526611938 Active 2023 Hernan tapia MD [address], [place], [address] , [facility] [facility] 4 15:58:39 Asthma 300756024 Active 2023 Hernan tapia MD [address], [place], [address] , [facility] 4 15:58:39 Pain of bilateral hip joints 2073707248935 9100 Active 2023 Hernan tapia MD [address], [place], [address] , [facility] 4 15:58:39 Chest pain 41604309 Active 2023 Hernan tapia MD [address], [place], [address] , [facility] 4 16:11:32 Dyspnea on exertion 25881150 Active 2023 Hernan tapia MD [address], [place], [address] , [facility] 4 16:38:14 Leukocytos is 137731113 Active 2023 Hernan tapia MD [address], [place], [address] , [facility] [employer] 4 14:19:47 Generalize d anxiety disorder 64168455 Active 2021 Not Available [facility] 3 12:23:27 Mixed hyperlipid emia 953218286 Active 2021 Not Available [facility] 3 12:23:27 Angioedema 01461954 Active 2022 Not Available [facility] 3 12:23:27 Well controlled type 2 diabetes mellitus 408305830 Active 2021 Not Available [facility] 12:23:27 Notes:Medical History: Angio edema ADHD/Anxiety Bilateral tinnitus Rhinitis Eosinophils 120/uL IgE 8 IU/mL Hypogammaglobulinemia (total, IgG2) AAT PiMM 142 mg% Obesity Sinus tachycardia with EF 65% Mixed hyperlipidemia T2DM MARILYN Urge urinary incontinence Vit D deficiency Thoracic kyphoscoliosis Bilateral trochanteric bursitis Procedure History: Thoracolumbar fusion 2014 EGD with (-) biopsies 2023 Occupational History: Disabled Some problems listed in Documents: #[id number], #[id number] could not be added to this patient's chart. Please review these documents and add these problems to the patient's chart manually as needed. Problem Notes None recorded. Procedures Surgical History Date Name Laterality Status Provider Name and Address Organization Details Recorded Time 3 Medicare Wellness CPT Code, subsequent completed JHONATHAN Estevez [address], [facility] [address], [place], [address], [facility] [employer] [facility] [employer] 04/27/2023 13:17:16 Back Surgery completed Not Available [facility] 08/16/2022 04:29:31 Imaging Results Imaging Date Name Status LastModified by Organization Details LastModified Time 09/02/2023 CT, abdomen + pelvis, w/ contrast completed [place] [address] [place] [address], [address], 12/16/2023 11:52:16 10/26/2023 US, echocardiogram completed [address] [facility] [address], [place], [address], 12/16/2023 11:50:49 12/07/2023 XR, chest, 2 view completed [address], [address], 12/16/2023 11:48:14 02/03/2024 XR, chest completed [address], [place], [address], 06/12/2024 08:35:33 02/05/2024 complete PFT w/ post bronchodilator spirometry* completed [facility] ([facility]) [address] [place], [address], 02/11/2024 10:47:23 02/25/2024 XR, chest completed [address] [place], [address], 06/12/2024 08:40:54 02/25/2024 CT, abdomen + pelvis, w/ contrast completed [address] [place], [address], 06/12/2024 08:41:30 02/05/2024 complete PFT w/ post bronchodilator spirometry* completed [address] ([employer] Sched[employer]) [address] [place], [address], 06/12/2024 08:42:24 04/28/2024 imaging/diagnostic result completed [address] [facility] [address], [place], [address], 06/12/2024 09:04:07 06/29/2024 imaging/diagnostic result active [facility] [address] [place], [address], 06/29/2024 21:59:29 Procedure Notes None recorded. Medical Equipment None Reported. Allergies Allergen ID Allergen Name Allergen Category Reaction Reaction Severity Criticality Documentation Date Start Date Code Code System Note Provider Name and Address Organization Details Recorded Time 54031 black pepper preparati on food Not available Not available Not available 01/29/2023 25459 4 RxNorm ANIKA Matias, [facility] [employer] [facility] 3 11:40:43 6541 Robitussi n medicatio n Not available Not available Not available 08/16/2022 35027 2 RxNorm Not Available [facility] 3 04:39:19 6542 ibuprofen / pseudoeph edrine medicatio n Not available Not available Not available 08/16/2022 00074 2 RxNorm Not Available [facility] 3 04:39:19 6543 Chlor-Tri meton medicatio n Not available Not available Not available 08/16/202206373 4 RxNorm Not Available [facility] 3 04:39:19 6544 azithromy jayshree medicatio n Not available Not available Not available 08/16/2022 91747 RxNorm Not Available [facility] 3 04:39:19 04249 prednison e medicatio n Not available Not available Not available 12/26/2023 8640 RxNorm RAMAN Martino, [facility] [employer] 4 12:24:28 Medications Name Sig Start Date [...] propionate 50 mcg/actuati on nasal spray,suspe nsion Seadrift 2 sprays every day by intranasa l [...] Updated DateTime 4 163.83 cm 29.6 kg/m2 70413.6 6 g 97.6 [degF] 78 /min 110 mm[Hg] 60 mm[Hg] CHARO Cabral [facility] [employer] [facility] 4 10:44:15 Date Recorded Body height Body mass index (BMI) Body weight Body temperature Heart rate Oxygen saturation Oxygen saturation in Arterial blood by Pulse oximetry Systolic blood pressure Diastolic blood pressure Provider Name and Address Organization Details Last Updated DateTime 4 163.83 cm 30.4 kg/m2 56704.6 3 g 97.9 [degF] 87 /min 97 % 97 % 108 mm[Hg] 64 mm[Hg] Roselyn Whitehead MA [facility] [employer] [facility] 4 12:31:07 Date Recorded Heart rate Respiratory rate Provider Dyan chalino and Address Organization Details Last Updated DateTime 12/26/2023 87 /min 15 /min Gray Zeng MD [address] [place] [address], [address], [facility] [employer] [facility] 12/26/2023 13:00:37 Date Recorded Body height Body mass index (BMI) Body weight Body temperature Heart rate Systolic blood pressure Diastolic blood pressure Provider Name and Address Organization Details Last Updated DateTime 4 163.83 cm 30.8 kg/m2 55086.8 1 g 97.5 [degF] 84 /min 110 mm[Hg] 64 mm[Hg] CHARO Cabral [facility] [employer] [facility] 4 11:50:02 Date Recorded Body height Body mass index (BMI) Body weight Body temperature Heart rate Oxygen saturation Oxygen saturation in Arterial blood by Pulse oximetry Systolic blood pressure Diastolic blood pressure Provider Name and Address Organization Details Last Updated DateTime 4 163.83 cm 30.6 kg/m2 42169.2 2 g 96.2 [degF] 92 /min 98 % 98 % 122 mm[Hg] 74 mm[Hg] Lili Martinez MA [facility] [employer] [facility] 4 16:22:19 Date Recorded Body height Body mass index (BMI) Body weight Respiratory rate Systolic blood pressure Diastolic blood pressure Provider Name and Address Organization Details Last Updated DateTime 4 163.83 cm 30.6 kg/m2 62133.2 2 g 16 /min 104 mm[Hg] 62 mm[Hg] Hernan grider MD [address], [facility] [address], [place], [address], [facility] [employer] [facility] 4 09:41:51 Date Recorded Body temperature Heart rate Oxygen saturation Oxygen saturation in Arterial blood by Pulse oximetry Pain severity - 0-10 verbal numeric rating [Score] - Reported Provider Name and Address Organization Details Last Updated DateTime 4 98.4 [degF] 88 /min 98 % 98 % 0 Gm Vogt LPN [facility] [employer] 4 09:44:53 Social History Question Answer Notes LastModified by Organization Details LastModified Time Tobacco Smoking Status Former Smoker CHARO Stahl, [facility] [employer] 03/29/2023 12:51:30 Do You Have An Advance Directive? No MIGRATION.0301 [id number] Information not available 08/16/2022 What Is Your Level Of Alcohol Consumption? Occasional MIGRATION.030 [id number] Information not available 08/16/2022 What Is Your Level Of Caffeine Consumption? Moderate Information not available 12/26/2023 How Much Tobacco Do You Chew? None MIGRATION.030 [id number] Information not available 08/16/2022 In The 14 Days Before Symptom Onset, Have You Had Close Contact With A Laboratory-conf irmed COVID-19 While That Case Was Ill? No MIGRATION.030 [id number] Information not available 08/16/2022 In The 14 Days Before Symptom Onset, Have You Had Close Contact With A Person Who Is Under Investigation For COVID-19 While That Person Was Ill? No MIGRATION.0301 [id number] Information not available 08/16/2022 Are You Currently Employed? No Disability Information not available 02/21/2024 What Type Of Diet Are You Following? REGULAR MIGRATION.0301 [id number] Information not available 08/16/2022 Which Illicit Or Recreational Drugs Have You Used? Marijuana MIGRATION.030 396162 Information not available 08/16/2022 Do You Or Have You Ever Used E-cigarettes Or Vape? Current User Of Electronic Cigarettes Information not available 02/21/2024 Do You Have An Electrostatic Air Filter? No Information not available 12/26/2023 Have There Been Any Changes To Your Family Or Social Situation? No MIGRATION.0301 [id number] Information not available 08/16/2022 What Is The Fluoride Status Of Your Home? Unknown MIGRATION.0301 [id number] Information not available 08/16/2022 Are There Any Guns Present In Your Home? No MIGRATION.0301 722853 Information not available 08/16/2022 Do You Have A Humidifier? No Information not available 12/26/2023 Do You Use Insect Repellent Routinely? No MIGRATION.0301 [id number] Information not available 08/16/2022 Where Do You Live? [facility] MIGRATION.0301 [id number] Information not available 08/16/2022 Do You Have Moisture Problems In Your Home? No Information not available 12/26/2023 What Was The Date Of Your Most Recent Tobacco Screening? 02/21/2024 Information not available 02/21/2024 Do You Have Any Pets? Yes MIGRATION.0301 [id number] Information not available 08/16/2022 What Is Your Relationship Status? Single MIGRATION.0301 863429 Information not available 08/16/2022 Do You Use Your Seat Belt Or Car Seat Routinely? Yes MIGRATION.0301 [id number] Information not available 08/16/2022 Do You Have Smoke And Carbon Monoxide Detectors In Your Home? Yes MIGRATION.0301 069663 Information not available 08/16/2022 Are You Passively Exposed To Smoke? Yes MIGRATION.0301 395853 Information not available 08/16/2022 Do You Or Have You Ever Used Smokeless Tobacco? Never Used Smokeless Tobacco MIGRATION.0301 387957 Information not available 08/16/2022 Are There Any Smokers In Your House? No MIGRATION.0301 712661 Information not available 08/16/2022 Do You Feel Stressed (tense, Restless, Nervous, Or Anxious, Or Unable To Sleep At Night)? [id number] MIGRATION.0301 083039 Information not available 08/16/2022 Do You Use Any Illicit Or Recreational Drugs? Yes MIGRATION.0301 774576 Information not available 08/16/2022 Do You Use Sunscreen Routinely? No MIGRATION.0301 603220 Information not available 08/16/2022 Have You Recently Traveled Abroad? No MIGRATION.030272169 Information not available 08/16/2022 Have You Used IV Drugs? No Information not available 02/21/2024 Do You Have Any Dietary Restrictions? No MIGRATION.030271411 Information not available 08/16/2022 Do You Or Have You Ever Used Any Other Forms Of Tobacco Or Nicotine? Yes Information not available 02/21/2024 Sex: Female Functional Status Question Answer Note LastModified by Organizat ion Details LastModified Time What is your exercise level? Heavy daily walks MIGRATION.[id number] 26 Information not available 08/16/2022 Mental Status None recorded. Family History Relationship Description Onset Age of this Age Resolved Age Notes LastModified by Organization Details LastModified Time Father Diabetes mellitus [id number].797 [id number] Not available 08/16/2022 04:29:36 Mother Asthma [email or web address] Not available 03/2024 12:48:03 Paternal Grandmother Malignant neoplasm of lung [email or web address] Not available 2023 12:48:41 Notes:adopted Medical History Condition Response HEART ARRHYTHMIA Y EYE PROBLEMS Y GERD/NAUSEA Y DIABETES, TYPE Y HEADACHES/MIGRAINES Y GI PROBLEMS Y Gynecological History Statement/Question Response How many [...] trivalent, PF 04/23/2024 completed Hernan Madden MD [address] [place] [address], [address], [facility] [employer] 04/28/2024 14:50:20 Past Encounters Encounter ID Performer Location Encounter Start Date Encounter Closed Date Diagnosis/Indication Diagnosis SNOMED-CT Code Diagnosis ICD10 Code Diagnosis Note [id number] Cici Fuller MD _EUN_M IGRATION_ DEFAULT_1 _1 , 10/14/2020 00:00:00 10/14/2020 11:37:57 [id number] Cici Fuller MD _ATHENA_M IGRATION_ DEFAULT_1 _1 , 01/20/2021 00:00:00 01/20/2021 11:25:30 [id number] [facility] _ATHENA_M IGRATION_ DEFAULT_1 _1 , 08/04/2021 00:00:00 08/04/2021 11:40:41 [id number] Hernan tapia MD S_[facility] Internal Med [facility] [address] [address] 12/05/2021 00:00:00 12/05/2021 16:21:18 [id number] [facility] _ATHENA_M IGRATION_ DEFAULT_1 _1 , 02/23/2022 00:00:00 02/23/2022 12:57:51 [id number] Hernan tapia MD S_[facility] Internal Med [facility] [address] [address] 03/06/2022 00:00:00 03/06/2022 16:52:26 [id number] [facility] [place] [address] [place] [address] 06/13/2022 00:00:00 06/13/2022 18:11:57 [id number] JHONATHAN Estevez S_[facility] Internal [facility] [address] [place] [address] 08/17/2022 12:10:09 08/17/2022 12:51:41 Asthma [id number] J45.909 on albuterol prnhas nebulizer at home Allergic rhinitis 873078 04 J30.9 on cetirizine and flonase Attention deficit hyperactivity disorder 170560934 F90.9 now following psychiatry - Adán at Dr. Patel's officeon lamictal Hypertrophy of vulva [address] Dolan patient was recommende d surgical eval, but pt is not interested in surgery at this time Tachycardia 1314168 R00. 0 follows cardiology - Dr. Cora Santamaria Type 2 peg betes mellitus without complication 265311395 E11.9 follows endocrinol ogy- Dr. Poornima Bernal, she self stopped her metformin Gastroesop hageal reflux disease without esophagitis 279126918 K21.9 has been on pepcid and omeprazole in the past, now off meds Generalize d anxiety disorder 66383100 F41.1 on effexor from endoalso follows psych as aboverecom mend she call them to discuss her increase in fear of abandonmen t, recommend counseling call office if any change in mood or behavior Eczema of external auditory canal 23230456 H60.549 on mometasone cream p.r.n.avoi d putting anything into the ears, avoid scratching call if no improvemen t after meds, we can send to ENT if no better Angioedema 11062033 T78. 3XXD she has Epipen for PRN use- she knows to go to ER or call 911 if she has to use itget appt with logging supervisor- I stressed the importance of getting this done [id number] Hernan tapia MD [facility] Internal Med [address] [facility] [place] [address] 11/20/2022 11:28:40 11/20/2022 12:08:19 Asthma [id number] J45.909 on albuterol prnhas nebulizer at home Allergic rhinitis 038647 04 J30.9 on cetirizine and flonase Attention deficit hyperactivity disorder 442513894 F90.9 now following psychiatry - Adán at Dr. Patel's officeon lamictal Hypertrophy of vulva [address] Dolan patient was recommende d surgical eval, but pt is not interested in surgery at this time Tachycardia 6022350 R00. 0 follows cardiology - Dr. Cora Santamaria Type 2 peg betes mellitus without complication 727627705 E11.9 follows endocrinol ogy- Dr. Poornima Bernal, she self stopped her metformin Gastroesop hageal reflux disease without esophagitis 473581278 K21.9 has been on pepcid and omeprazole in the pastrestar t omeprazole lifestyle measures for acid reduction discussed Generalize d anxiety disorder 95876100 F41.1 on effexor from endoalso follows psych as aboverecom mend she call them to discuss her increase in fear of abandonmen t, recommend counseling call office if any change in mood or behavior Eczema of external auditory canal 98114934 H60.549 on mometasone cream p.r.n.avoi d putting anything into the ears, avoid scratching call if no improvemen t after meds, we can send to ENT if no better Angioedema 34504431 T78. 3XXD she has Epipen for PRN use- she knows to go to ER or call 911 if she has to use itnow following logging supervisor- Dr. Beverly- has followup in 2 weeks Epigastric pain 63364091 R10.13 as aboveER precaution s [id number] Hernan tapia MD [facility] Internal Med [address] [facility] [address] [place] [address] 12/22/2022 11:27:53 12/22/2022 11:46:04 Asthma [id number] J45.909 on albuterol prnhas nebulizer at home Allergic rhinitis 527332 04 J30.9 on cetirizine and flonase Attention deficit hyperactivity disorder 577682500 F90.9 now following psychiatry - Adán at Dr. Patel's officeon lamictal Hypertrophy of vulva [address] Dolan patient was recommende d surgical eval, but pt is not interested in surgery at this time Tachycardia 3549478 R00. 0 follows cardiology - Dr. Cora Santamaria Type 2 peg betes mellitus without complication 024271946 E11.9 follows endocrinol ogy- Dr. Poornima Bernal, she self stopped her metformin Gastroesop hageal reflux disease without esophagitis 845542816 K21.9 on omeprazole - she is aware of side effects, risks, and benefits Take p.r.n. if ablelifest yle measures for acid reduction discussed Epigastric pain 05728197 R10.13 Now resolved after starting omeprazole Generalize d anxiety disorder 94354398 F41.1 on effexor from endoalso follows psych as aboverecom mend she call them to discuss her increase in fear of abandonmen t, recommend counseling call office if any change in mood or behavior Eczema of external auditory canal 48475655 H60.549 on mometasone cream p.r.n.avoi d putting anything into the ears, avoid scratching call if no improvemen t after meds, we can send to ENT if no better Angioedema 04081121 T78. 3XXD she has Epipen for PRN use- she knows to go to ER or call 911 if she has to use itnow following logging supervisor- Dr. Beverly Pain of ri ght ankle joint 0768518096 8802284 M25.571 Get x-ray today, further plan based on result Continue ankle brace Can alternate Tylenol and ibuprofen OTC for pain ER for [id number] Cici Fuller MD [facility] [place] [address] [place] [address] 01/29/2023 11:05:44 01/29/2023 12:29:48 Well controlled type 2 diabetes mellitus 545832052 E11.9 a1c of 6.9%- continue on metformin ER 500 mg BID, victoza 1.2 mg SQ daily, and farxiga 10 mg daily.Disc ussed carb counting and how to read food labels. Recommende d patient to utilize the diabetesfo CO-Value.NodePing from the ADA website to help with food preparatio n as this presents ideal carb content per meal so this will make carb counting much easier for patient. Recommende d she incorporat e natural insulin university intern s such as pears, apples, cinnamon, ramón and sweet potatoes to help mobilize her endogenous insulin. Recommende d up to 150 minutes of moderate level activity/e xercise weekly. Insect bite reaction 402 526263 T63.481A Refill mometasone cream for recent insect bite reaction. Spent up to 25 minutes preparing to see the patient (eg, review of tests), obtaining and/or reviewing separately obtained history, performing a medically appropriat e examinatio n and evaluation , counseling and educating the patient, ordering medication s, tests, along with documentin g clinical informatio n in the electronic health record, bouchra hey interpreti ng results and communicat ing results to the patient. Patient can be followed by PCP - she/he is aware of my resignatio n and last day of March 30. If needed his/her PCP can refer patient to another endocrinol ogist in the area. All questions /concerns answered and refills necessary at visit today. [id number] Luciano Spann MD [facility] [place] [address] [place] [address] 03/29/2023 11:49:57 04/09/2023 11:01:51 Pain of right hip joint 7816443479 12558 M25.022 [id number] Hernan tapia MD S_G Internal Med [facility] [address] [facility], [address] [place] [address] 04/27/2023 11:37:24 04/27/2023 12:12:44 Asthma [id number] J45.909 on albuterol prnhas nebulizer at home Allergic rhinitis 769398 04 J30.9 on cetirizine and flonase Attention deficit hyperactivity disorder 520951710 F90.9 now following psychiatry - Adán at Dr. Paetl's officeon lamictal Hypertrophy of vulva [address] Dolan patient was recommende d surgical eval, but pt is not interested in surgery at this time Tachycardia 0169170 R00. 0 follows cardiology - Dr. Cora Santamaria Type 2 peg betes mellitus without complication 371608820 E11.9 follows endocrinol ogy- Dr. Poornima Bernal, she self stopped her metformin Gastroesop hageal reflux disease without esophagitis 591650870 K21.9 on omeprazole , add famotidine at hs- she is aware of side effects, risks, and benefitsTa ke p.r.n. if ablelifest yle measures for acid reduction discussed- she must stop drinking the energy drinks!ref erral to GI per her request Generalize d anxiety disorder 85077890 F41.1 on effexor from psychrecom mend she call them to discuss her increase in fear of abandonmen t, recommend counseling call office if any change in mood or behavior Eczema of external auditory canal 60480061 H60.549 on mometasone cream p.r.n.avoi d putting anything into the ears, avoid scratching call if no improvemen t after meds, we can send to ENT if no better Angioedema 83230435 T78. 3XXD she has Epipen for PRN use- she knows to go to ER or call 911 if she has to use itnow following logging supervisor- Dr. Beverly Adult [facility] th examination 625107992 Z00.00 Screening for disorder 076900566 Z13.9 [id number] Luciano Spann MD [facility] [address] [place] [address] 05/03/2023 14:06:36 05/14/2023 10:57:30 Pain of bilateral hip joints 6191028887 6859667 M25.551 M25.847 [id number] Hernan tapia MD [facility]_G Internal Med [facility] [address] [facility] [address] [place] [address] 09/25/2023 10:23:30 09/25/2023 11:21:00 Screening - NAD 457519160 Z13.9 Get yearly flu shot, tdap vaccineCan do COVID 19 vaccine and its boosters Get WWE with her OB RTC in 3 months, do labs, ER if worse, she and her mother did verbalize her understand ing of the above Allergic rhinitis 475130 04 J30.9 On flonase, does well Attention deficit hyperactivity disorder 112461971 F90.9 On lamotrigin e 100mg bidSees psychiatry Hypertrophy of vulva 169 [address] N90.60 Sees her OB Tachycardia 6149851 R00. [address] Fried 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, now does well, no complaints Hyperlipid emia screening 733116394 Z13.220 Vitamin D deficiency 347 62147 E55.9 Serum dayami min B12 below reference range 929038285 R79.89 Asthma 042872331 J45.90 9 On HHNsOn albuterol, renewed HFA 09/25/2023 [id number] Gray Zeng MD [place] [address] 12/26/2023 11:52:34 12/27/2023 09:50:00 Dyspnea on exertion 86810351 R06.09 R05.9 T78.40XA D89.9 [id number] Hernan tapia MD [facility] Internal Med [facility] [address] [place] [address] 01/15/2024 11:22:27 01/15/2024 12:43:09 Screening - NAD 190793519 Z13.9 Get yearly flu shot, tdap vaccineCan do COVID 19 vaccine and its boosters Get WWE with her OB RTC in 3 months, do labs, ER if worse, she and her mother did verbalize her understand ing of the above Allergic rhinitis 087976 04 J30.9 On flonase, does well Attention deficit hyperactivity disorder 687707053 F90.9 On lamotrigin e 100mg bidSees psychiatry Hypertrophy of vulva 169 66276 N90.60 Sees her OB Tachycardia 9871609 R00. [address] aFriha Harper on corlanor 5mg bid, does well with this, see Dr Fariha ARMENTA referred 01/15/2024 Type 2 peg betes mellitus without complication 495191788 E11.[address] Fuller in the pastOn Farxiga 10mg dailyOn metformin ER 500mg dailyNot on Mounjaro 5mg weekly as this caused her to have menorrhagi a, now much improvedGe t labs Generalize d anxiety disorder 19028563 F41.1 On venlafaxin e ER 75mg dailyOn lamotrigin e 100mg bidNot suicidal or homicidalS ees Dr Patel's TALENT DEVELOPMENT ANALYST Gastroesop hageal reflux disease without esophagitis 229196497 K21.9 On famotidine take as neededOn omeprazole 10mg daily take PRNOn sucralfate EGD 07/10/2023 : Dr Lott Gynecologi c examination 77951353 Z01.419 Kyphoscoli osis deformity of spine 717764297 M41.80 S/p surgery at age 18 years, now does well, no complaints Vitamin D deficiency 347 47248 E55.9 Serum dayami min B12 below reference range 059888686 R79.89 Asthma 183288596 J45.90 9 On HHNsOn albuterol, renewed HFA 09/25/[address] Zeng 02/05/2024 Hyperlipidemia 64746949 E78.5 On rosuvastat in 20mg dailyGet labs Pruritic rash 79920442 L 28.2 Was in the yard and noted she had 'bug bites', now getting better is applying triple ointment and 1% hydrocorti soneNotify if any redness or weeping noted Pain of bi lateral hip joints [id number] 5528924 M25.[address] Spann and Dr Oquendo vised to take NSAIDs very sparingly! Referred again [id number] Hernan tapia MD S_[facility] Internal Med [address] [facility], [address] [place] [address] 02/21/2024 16:14:25 02/21/2024 17:17:00 Screening - NAD 411403558 Z13.9 Get yearly flu shot, tdap vaccineCan do COVID 19 vaccine and its boosters Get WWE with her OB RTC in 3 months, do labs, ER if worse, she and her mother did verbalize her understand ing of the above Allergic rhinitis 713265 04 J30.9 On flonase, does well Attention deficit hyperactivity disorder 063268818 F90.9 On lamotrigin e 100mg bidSees psychiatry Hypertrophy of vulva 169 68295 N90.60 Sees her OB Tachycardia 7553101 R00. [address] Fariha Harper on corlanor 5mg bid, does well with this, see Dr Fariha ARMENTA referred 01/15/2024 , 02/21/2024 Type 2 peg betes mellitus without complication 208145455 E11.[address] Fuller in the pastOn Farxiga 10mg dailyOn metformin ER 500mg dailyNot on Mounjaro 5mg weekly as this caused her to have menorrhagi a, now much improvedGe t labs Generalize d anxiety disorder 07829327 F41.1 On venlafaxin e ER 75mg dailyOn lamotrigin e 100mg bidNot suicidal or homicidalS ees Dr Patel's TALENT DEVELOPMENT ANALYST Gastroesop hageal reflux disease without esophagitis 712783728 K21.9 On famotidine take as neededOn omeprazole 10mg daily take PRNOn sucralfate EGD 07/10/2023 : Dr Lott Gynecologi c examination 36447723 Z01.419 Kyphoscoli osis deformity of spine 052214270 M41.80 S/p surgery at age 18 years, now does well, no complaints Vitamin D deficiency 347 53475 E55.9 Serum dayami min B12 below reference range 227683862 R79.89 Asthma 405977805 J45.90 9 On HHNsOn albuterol, renewed HFA 09/25/[address] Zeng 02/05/2024 Hyperlipidemia 91174589 E78.5 On rosuvastat in 20mg dailyGet labs Pruritic rash 75896793 L 28.2 Was in the yard and noted she had 'bug bites', now getting better is applying triple ointment and 1% hydrocorti soneNotify if any redness or weeping noted Pain of bi lateral hip joints 8402904943 1397356 M25.[address] Spann and Dr Oquendo vised to take NSAIDs very sparingly! Referred again Seen in em ergency clinic [id number] Z76.89 ER at [place] for chest pain Chest pain 83403023 R07. 9 ER at [facility] 02/03/2024 COVID 19/flu/RSV /XR chest: NegativeD- dimer: NegativeBN P/Trop: NegWBC elevatedDo es well nowWill Dyspnea on exertion [address] Zeng 12/26/2023 PFT 02/05/2024 [id number] Hernan tapia MD [facility] [address] [facility] [address] [place] [address] 04/23/2024 09:34:28 04/23/2024 10:34:40 Screening - NAD 363121994 Z13.9 Get yearly flu shot, tdap vaccineCan do COVID 19 vaccine and its boosters Get WWE with her OB RTC in 2 months, do labs, ER if worse, she and her mother did verbalize her understand ing of the above Allergic rhinitis 617949 04 J30.9 On flonase, does well Attention deficit hyperactivity disorder 140420430 F90.9 On lamotrigin e 100mg bidSees psychiatry Hypertrophy of vulva 169 46073 N90.60 Sees her OB Tachycardia 1412543 R00. [address] Fariha ARMENTAOn corlanor 5mg bid, does well with this, see Dr Fariha ARMENTA referred 01/15/2024 , 02/21/2024 Type 2 peg betes mellitus without complication 462867182 E11.[address] Fuller in the past On Farxiga 10mg dailyOn metformin ER 500mg dailyDoes not want to get on insulin, more diet and exercise is needed Not on Mounjaro 5mg weekly as this caused her to have menorrhagi a, now much improvedGe t labs Generalize d anxiety disorder 63326927 F41.1 On venlafaxin e ER 75mg dailyOn lamotrigin e 100mg bidNot suicidal or homicidalS ees Dr Patel's TALENT DEVELOPMENT ANALYST Gastroesop hageal reflux disease without esophagitis 348630426 K21.9 On famotidine take as neededOn omeprazole 10mg daily take PRNOn sucralfate EGD 07/10/2023 : Dr Lott Gynecologi c examination 99885541 Z01.419 Kyphoscoli osis deformity of spine 076547226 M41.80 S/p surgery at age 18 years, now does well, no complaints Vitamin D deficiency 347 86832 E55.9 Serum dayami min B12 below reference range 766826471 R79.89 Asthma 764736696 J45.90 9 On HHNsOn albuterol, renewed HFA 09/25/[address] Zeng Hyperlipidemia 54769356 E78.5 On rosuvastat in 20mg daily, increase to 40mg dailyGet labs Pruritic rash 85928866 L 28.2 Was in the yard and noted she had 'bug bites', now getting better is applying triple ointment and 1% hydrocorti soneNotify if any redness or weeping noted OV 04/23/2024 : Rash noted on the external genitalia and inner thighs, get on nystatin Pain of bi lateral hip joints 1524120803 1979378 M25.[address] Spann and Dr Oquendo vised to take NSAIDs very sparingly! Referred again Seen in em ergency clinic 459544696 Z76.89 ER at [place] for chest pain Chest pain 96430307 R07. 9 ER at [facility] 02/03/2024 COVID 19/flu/RSV /XR chest: NegativeD- dimer: NegativeBN P/Trop: NegWBC elevatedDo es well now Dyspnea on exertion [address] Zeng 12/26/2023 PFT 02/05/2024 Leukocytosis 941392934 D 72.829 Get an apt with hematologi st Administra tion of influenza vaccine 30035513 Z23 Health Concerns Section Related Observation LastModified by Organization Detai ls LastModified Time None Recorded Concern Status LastModified by Organization Details LastModified Time None Recorded Advance Directives Directive N: Payers Encounter Date Sequence Insurance Name Policy Number Policy Wick Covered Member ID Wick Member ID Guarantor Name 09/25/2023 1 [place] Violet Mack [id number] 1 Violet Mack 09/25/2023 2 [employer] [place] (MEDICARE SUPPLEMENT) Violet Mack [id number] Violet Peral[place]land 12/26/2023 1 [place] Violet Valdez [place] [id number] 1 Violet Peraltahlsharan 12/26/2023 2 [employer] [place] (MEDICARE SUPPLE[place]) Violet E Morthland [id number] Violet E [place] 01/15/2024 1 [place] Violet E [place] [id number] 1 Violet E [place]orthland 01/15/2024 2 [employer] [place] (MEDICARE [place]PPLE[place]) Violet E [place]orth[place] [id number] Violet E [place] 02/21/2024 1 [place] Violet E [place] [id number] 1 Violet E [place]land 02/21/2024 2 [employer] [place]MEDIC[place] SUPPLE[place]) Violet E [place]orth[place] [id number] Violet E [place] 04/23/2024 1 [place] Violet E [place] [id number] 1 Violet E [place] 04/23/2024 2 [employer] [place] (MEDICARE SUPPLEMENT) Violet E [place]orth[place] [id number] Violet E [place]orthland Notes Date Note Type Note Provider Name and Address Organization Details Recorded Time 09/25/2023 text/html Addendum: 01/15/2024: 09/25/2023: Here to establish care Present Hx: ADHD Allergies Tachycardia Hypertrophy of vulva DMII LUIS MANUEL Here to discuss above Hernan Madden MD [address] [place] [address], [address], [place] [employer] 01/15/2024 12:00:21 12/26/2023 text/html Primary care/Referring provider: [...] up from lying position Modified [employer] [place] ([facility]) Dyspnea Scale - Grade 2 Grade [...] Edema: no Environmental exposures: Nicotine smoke: no Lawler: no Dye: no Dust mites: yes Mold: no Damp basement: no Wood burning stove: no Animal dander: dog Cockroaches: no Pollen: yes Arsenic: no Asbestos: no Beryllium: no Cadmium: no Chromium: no [place] smoke: no Diesel fumes: no Nickel: no [...] no chance of dozing. Gray Zeng MD [address] [place] [address], [place] [address], [place], [address], [facility] [employer] 12/26/2023 13:04:09 01/15/2024 text/html 09/25/2023: Here to establish care Present Hx: ADHD Allergies Tachycardia Hypertrophy of vulva DMII LUIS MANUEL Here to discuss aboveOV 01/15/2024:Here for her f/u apt, she is doing well, she is here with her mother, she does have a rash from working in the yard and feels that 'bugs bit' herShe has no new labsShe has seen her it help desk associate, and her OB and is now not taking any GLP-1 as it interferes with her OC and caused her to get excessive mensesShe would also like to get another apt with Dr Graham as she has noted increasing fawn hip pain, she was offered steroid shots in the past Hernan Madden MD [address], [place], [address], [employer] 01/15/2024 12:45:41 02/21/2024 text/html 09/25/2023: Here to establish care Present Hx: ADHD Allergies Tachycardia Hypertrophy of vulva DMII LUIS MANUEL Here to discuss aboveOV 01/15/2024:Here for her f/u apt, she is doing well, she is here with her mother, she does have a rash from working in the yard and feels that 'bugs bit' herShe has no new labsShe has seen her it help desk associate, and her OB and is now not [...] no chest pain today Hernan Madden MD [address], [place], [address], [employer] 02/21/2024 17:26:16 04/23/2024 text/html 09/25/2023: Here to establish care Present Hx: ADHD Allergies Tachycardia Hypertrophy of vulva DMII LUIS MANUEL Here to discuss aboveOV 01/15/2024:Here for her f/u apt, she is doing well, she is here with her mother, she does have a rash from working in the yard and feels that 'bugs bit' herShe has no new labsShe has seen her it help desk associate, and her OB and is now not [...] did do the labs Hernan Madden MD [address] [place] [address], [place] [address], [place], [address], [facility] [employer] [facility] 04/28/2024 14:54:05 OBGyn Episode No OBEpisode recorded.
--- OUTSIDE RECORDS SUMMARY | 2024-10-25 11:16 | XMS_ITS | Patient Health Record ---
Author Organization [facility] As [employer] Personal Care Device [facility] Address [address] [place] [address] Care Team Providers Care Spanish Medical Interpreter Name Role Phone Maryanne COLLADO, Hernan Primary Care Provider Un available Tian Frazier Unavailable [phone] Maritza Nicole Unavailable [phone] Migration, Provider Unavailable Unavailable Allergies Allergen (clinical [...] MG/DOSE) 2 MG/3ML Subcutaneous *Pick strength-form from [employer] for eRX* 11/07/2023 Active Farxiga 10 MG Oral 11/07/2023 Activ e ProAir HFA 108 (90 Base) MCG/ACT Inhalation 11/07/2023 Active lamoTRIgine 100 MG 1 tablet Oral twice a day for 90 days Active Immunizations Vaccine Route Administration Date Status Comme renato Thrill Covid-19 Vaccine Unknown 09/22/2020 Administere d [employer] Covid-19 Vac cine 2nd dose Unknown 06/24/2021 Administered Social History Tobacco Use: Social History Observation Description Date Details (start date - stop date) Never Smoker NA - NA Sex Assigned At : Social History Observation Description Sex Assigned At Female Tobacco Control (Standard) Question Answer Notes Tobacco use: Nonsmoker Problems Problem Type SNOMED Code ICD Code Onset Dates Problem Status W/U Status Risk Notes Problem Mild recurrent major depression (27395203) Major depressive disorder, recurrent, mild (F33.0) 11/07/19 Active confirmed Problem Generalized anxiety disorder (68261461) Generalized anxiety disorder (F41.1) 11/07/19 Active confirmed Problem Posttraumatic stress disorder (41338097) Post-traumatic stress disorder, chronic (F43.12) 11/07/19 Active confirmed Problem Insomnia disorder related to another mental disorder (28192924) Insomnia due to other mental disorder (F51.05) 11/07/19 Active confirmed Problem Intermittent explosive disorder (34617340) Intermittent explosive disorder (F63.81) 11/07/19 Active confirmed Problem Attention deficit hyperactivity disorder, combined type (41583184) Attention-deficit hyperactivity disorder, combined type (F90.2) 11/07/19 Active confirmed Vital Signs Heart Rate 94 /min 09/02/2024 Blood pressure diastolic 68 mm Hg 09/02/2024 Height-cm 165.10 cm 09/02/2024 Weight-kg 77.57 kg 09/02/2024 Height 65.00 in 09/02/2024 Blood pressure systolic 97 mm Hg 09/02/2024 Weight 171 lbs 09/02/2024 BMI 28.45 kg/m2 09/02/2024 Encounters Encounter Location Date Provider Diagnosis [facility] [address] [facility] [address] [place] [address] 11/07/2023 Tian Frazier Intermittent explosi ve disorder F63.81 ; Post-traumatic stress disorder, chronic F43.12 ; Attention-deficit hyperactivity disorder, combined type F90.2 ; Generalized anxiety disorder F41.1 ; Insomnia due to other mental disorder F51.05 and Major depressive disorder, recurrent, mild F33.0 [facility] [address] [facility] [address] [place] [address] 01/04/2024 Tian Frazier Intermittent explosi ve disorder F63.81 ; Post-traumatic stress disorder, chronic F43.12 ; Attention-deficit hyperactivity disorder, combined type F90.2 ; Generalized anxiety disorder F41.1 ; Insomnia due to other mental disorder F51.05 and Major depressive disorder, recurrent, mild F33.0 [facility] [address] [address] 04/07/2024 Tian Frazier Intermittent explosi ve disorder F63.81 ; Post-traumatic stress disorder, chronic F43.12 ; Attention-deficit hyperactivity disorder, combined type F90.2 ; Generalized anxiety disorder F41.1 ; Insomnia due to other mental disorder F51.05 ; Major depressive disorder, recurrent, mild F33.0 and Marijuana use F12.90 [facility] [address] [address] 07/07/2024 Tian Frazier [address] [address] 09/02/2024 Tian Frazier Generalized anxiety disorder F41.1 ; Major depressive disorder, recurrent, mild F33.0 ; Post-traumatic stress disorder, chronic F43.12 ; Attention-deficit hyperactivity disorder, combined type F90.2 ; Intermittent explosive disorder F63.81 ; Insomnia due to other mental disorder F51.05 ; Encounter for screening for depression Z13.31 ; Encounter for screening for cardiovascular disorders Z13.6 and Marijuana use F12.[address] [address] 11/03/2023 Provider Migration [address] [address] 11/04/2023 Provider Migration Assessments Encounter Date Diagnosis [...] well-being and progress in other areas. 6. director of revenue cycle management: - Patient discusses difficulties with managing [...] well-being and progress in other areas. 6. director of revenue cycle management: - Patient discusses difficulties with managing [...] well-being and progress in other areas. 6. director of revenue cycle management: - Patient discusses difficulties with managing [...] well-being and progress in other areas. 6. director of revenue cycle management: - Patient discusses difficulties with managing [...] well-being and progress in other areas. 6. director of revenue cycle management: - Patient discusses difficulties with managing [...] well-being and progress in other areas. 6. director of revenue cycle management: - Patient discusses difficulties with managing [...] Details Provider Name:Tian tapia, 12/02/2024 01:15:00 PM, [address] [facility] [address] [facility] [address], [place], [address], Insurance Providers Payer Name Payer Address Payer Phone Subscriber Number Group Number Insured Name Patient Relationship to Insured Coverage Start Date Coverage End Date [place] [address] [place] [address] [id number] JANELLE ZHENG Self - patient is the insured [place] [employer] [place] Medicare Supplement [address] [employer] [facility] [place] [address] [id number] PLAN G JANELLE ZHENG Self - patient [...] Surgical History Surgery Date(Month/Year) Correction of scoliosis (862705732) 12/16
--- OUTSIDE RECORDS SUMMARY | 2024-10-25 11:16 | XMS_ITS | Encounter Summary ---
Author Organization [facility] Address [address] [address] Care Team Providers Care Estate Manager Name Role Phone Marcelle Hernandez MD Primary Care Provider [phone] Encounter Details Date Type Department Care Team (Late st Contact Info) Description 09/17/2019 Telephone [facility] Pediatrics - Diabetes [address] [address] Camron Brandon, CARMEN-DOCUMENT MANAGEMENT ANALYST [address] [place] [address] Social History Tobacco Use Types Packs/Day Years Used Date Smoking Tobacco: Never Smokeless Tobacco: Never Alcohol Use Standard Drinks/Week Comments No 0 (1 standard drink = 0.6 oz pur e alcohol) Comments No Sex and Gender Information Value Date Recorded Sex Assigned at Not on file Legal Sex Female 5:45 AM HEMODIALYSIS PATIENT CARE SPECIALIST Gender Identity Not on file Sexual Orientation [...] documented as of this encounter Care Teams Estate Manager Relationship Specialty Start Date End Date Marcelle Hernandez MD [address] [facility] [address] [place] [address] PCP - General Pediatrics 12/27/15 09/30/24 documented as of this encounter
--- OUTSIDE RECORDS SUMMARY | 2024-10-25 11:16 | XMS_ITS | Encounter Summary ---
Author Organization [facility] Address [address] [address] Care Team Providers Care Drapery Hand Name Role Phone Marcelle Hernandez MD Primary Care Provider [phone] Reason for Visit * Reason Onset Date Comments Scheduling 06/27/2019 Encounter Details Date Type Department Care Team (Late st Contact Info) Description 06/27/2019 Telephone [facility] [address] [place] [address] Mita Crum MD [facility] [place] [address] Scheduling Social History Tobacco Use Types Packs/Day Years Used Date Smoking Tobacco: Never Smokeless Tobacco: Never Alcohol Use Standard Drinks/Week Comments No 0 (1 standard drink = 0.6 oz pur e alcohol) Comments No Sex and Gender Information Value Date Recorded Sex Assigned at Not on file Legal Sex Female 5:45 AM BUS MONITOR Gender Identity Not on file Sexual Orientation [...] would like prep mailed to her at: [address] [facility] [address] Of note: Pt has diabetes, and Mom says that they (she did not specify) will not prescribe her medicine until we perform the scope. However, she expressed understanding at having to reschedule. * Telephone Encounter - Ciera Peterson RN - 09/10/2019 3:00 PM CDT Discussed plan to reschedule EGD, mom is aware that secretary to board of commissioners will be calling to arrange. * Telephone Encounter - Mita Crum MD - 09/10/2019 2:56 PM CDT Unfortunately need to reschedule Violet's elective upper endoscopy for 2-3 months given COVID19 concerns * Telephone Encounter - Emily Lozano RN - 08/18/2019 10:51 AM BUS MONITOR Verified orders in epic. Prep instructions given to family in clinic. MONITOR * Telephone Encounter - Nayeli Toledo - 08/18/2019 10:49 AM BUS MONITOR Spoke with Stephanie in the clinic, scheduled EGD for 09/19/2019 @ 2:[address] Crum. MONITOR * Telephone Encounter - Glenna Calderon RN - 06/27/2019 1:28 PM CST Patient will need appointment with with MD before any procedures are ordered/scheduled. Will route to scheduling. May schedule with any provider as it has been so long since she has been seen. MONITOR * Telephone Encounter - Felisa Ramesh - 06/27/2019 1:22 PM CST Mom called and left a message that Dr. Madsen from [facility] is referring this pt to Dr. Crum. Mom says that Dr. Madsen wants the pt to have an upper GI scheduled before she will give medication. MONITOR documented in this encounter Plan of Treatment Not on file documented as of this encounter Visit Diagnoses Not on filedocumented in this encounter Additional Health Concerns Infection Onset Date Last Indicated Resolved Time COVID-19 Under Investigation 12/22/2019 12/23/2019 12/24/2019 2:58 PM CDT documented as of this encounter Care Teams Drapery Hand Relationship Specialty Start Date End Date Marcelle Hernandez MD [address] [place] [address] PCP - General Pediatrics 12/27/15 09/30/24 documented as of this encounter
--- OUTSIDE RECORDS SUMMARY | 2024-10-25 11:17 | XMS_ITS | Referral Summary ---
Author Organization [facility] Address [address] [place] [address] Care Team Providers Care Phosphatic Fertilizer Supervisor Name Role Phone Sukhwinder Madden MD Primary [...] Cartridge) 30 gauge combo pack 30 each promotions officer before breakfast 3 each 3 3 Active [...] 08/04/2021 Assessment & Plan (05/31/2023 4:15 PM EDUCATION AND TRAINING MANAGER): Hba1c was Lab Results Component Value [...] on file Legal Sex Female 12:00 PM EDUCATION AND TRAINING MANAGER Gender Identity Not on file Sexual Orientation Not on file Last Filed Vital Signs Vital Sign Reading Time Taken Comments Blood Pressure 120/70 05/31/2023 2:17 PM EDUCATION AND TRAINING MANAGER Pulse 105 05/31/2023 2:17 PM EDUCATION AND TRAINING MANAGER Temperature - - Respiratory Rate 18 05/31/2023 2:17 PM EDUCATION AND TRAINING MANAGER Oxygen Saturation - - Inhaled Oxygen Concentration - - Weight 80.7 kg (178 lb) 05/31/2023 2:17 PM EDUCATION AND TRAINING MANAGER Height 166.4 cm (5' 5.5 ) 05/31/2023 2:17 PM EDUCATION AND TRAINING MANAGER Body Mass Index 29.17 05/31/2023 2:17 PM EDUCATION AND TRAINING MANAGER Plan of Treatment Not on file Procedures Procedure Name Priority Date/Time Associated Diagnosis Comments POCT HEMOGLOBIN A1C Routine 05/31/2023 2 :17 PM EDUCATION AND TRAINING MANAGER Type 2 diabetes mellitus with hyperglycemia, with long-term current use of insulin (HCC) from Last 3 Months or Most Recently Relevant to Health Maintenance Results * (ABNORMAL) POCT hemoglobin A1c (05/31/2023 2:17 PM EDUCATION AND TRAINING MANAGER) Hemoglobin A1C, POC 7.5 % Blood spot 05/31/2023 2:17 PM EDUCATION AND TRAINING MANAGER Marco Antonio Geller MD POINT OF CARE TEST ORDERABLES Fi nal Result from Last 3 Months or Most Recently Relevant to Health Maintenance Insurance MEDICARE [facility] MEDICARE [employer] [place] Care Teams Phosphatic Fertilizer Supervisor Relationship Specialty Start Date End Date Sukhwinder Madden MD [address] [place] [address] PCP - General Internal Medicine 04/27/22
--- OUTSIDE RECORDS SUMMARY | 2024-10-25 11:17 | XMS_ITS ---
Author Organization [facility] Address [address] [address] Care Team Providers Care Compactor Driver Name Role Phone Cici Fuller Primary Care [...] Problem Status W/U Status Risk Notes Problem Type 2 diabetes mellitus with hyperglycemia (E11.65) Active confirmed Problem Obesity (129357460) Obesity, unspecified (E66.9) Active confirmed Problem Irregular menstruation (13066976) Irregular menstruation, unspecified (N92.6) Active confirmed Problem Vitamin D deficiency (15269040) Vitamin D deficiency, unspecified (E55.9) Active confirmed Problem Non-toxic goiter (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 Consider referral to an lacrosse player for further evaluation and management. 5. Insomnia:- [...] evaluation.- Plan: Provide options for imaging centers ([facility], [facility], or [facility]). Schedule imaging appointments and follow up with results. Spent 45 minutes preparing to see the patient (ex review of tests/chart), obtaining and / or reviewing separately obtained history, performing a medically appropriate examination and/or evaluation, counseling and educating the patient/family/ca regiver, ordering medications, tests, or procedures, referring and communicating with other health child day care teacher, documenting clinical information in the [...] EpiPen if needed. Consider referral to an lacrosse player for further evaluation and management. 5. Insomnia:- [...] evaluation.- Plan: Provide options for imaging centers ([place], [facility], or [facility]). Schedule imaging appointments and follow up with results. Spent 45 minutes preparing to see the patient (ex review of tests/chart), obtaining and / or reviewing separately obtained history, performing a medically appropriate examination and/or evaluation, counseling and educating the patient/family/caregiver, ordering medications, tests, or procedures, referring and communicating with other health child day care teacher, documenting clinical information in the [...] 4 Weeks, Reason: labwork Progress Notes * CATHERINESHAMIKA ChongTodOB:2000 (23 yo F)Acc No.[id number]:05/08/2024 Progress Notes Patient: Violet KELLY Provider: Zhen Fuller MD :2000 A ge:23 Y S ex:Female Date:05/08/2024 Address:[address], [facility] Subjective: * Chief Complaints: * 1 . [...] Orally Twice a day * Allergies: P EPPER, Z PACK. Objective: * Vitals: H R: 89, [...] EpiPen if needed. Consider referral to an lacrosse player for further evaluation and management. 5. Insomnia:- [...] evaluation.- Plan: Provide options for imaging centers ([facility], [facility], or [facility]). Schedule imaging appointments and follow up with results. Spent 45 minutes preparing to see the patient (ex review of tests/chart), obtaining and / or reviewing separately obtained history, performing a medically appropriate examination and/or evaluation, counseling and educating the patient/family/caregiver, ordering medications, tests, or procedures, referring and communicating with other health child day care teacher, documenting clinical information in the electronic or other health record, independently interpreting results and communicating results to the patient/family/caregiver and care coordinating patient plan. Patient alert and oriented x 4 and aware of discussion noted above and in agreeance to plan in management of type 2 DM, irregular cycles, weight gain/overweight, goiter. * Procedure Codes: 9 9401 P/M DYNAMOMETER TESTER, INDIV 15 MIN * Follow Up: 4 Weeks (Reason: labwork) * Billing Information: * Visit Code: 87632 Office Visit, New Pt., Level 4. * Procedure Codes: 52973 P/M DYNAMOMETER TESTER, INDIV 15 MIN. * ER Sign off status: Completed true * Provider: Zhen Fuller MD Date: 07/08/2023 Generated for Marti bermeo/Mao/Jacindaitting on: 0 10/25/2024 11:17 AM CDT History and Physical Notes * [...]
--- OUTSIDE RECORDS SUMMARY | 2024-10-25 11:17 | XMS_ITS ---
Author Organization [facility] Address [address] [place] [address] Care Team Providers Care Learning And Development Manager Name Role Phone Cici Fuller Primary Care Provider [phone] Allergies Allergen (clinical drug ingredient) Drug/Non Drug [...] 06/09/2024 Encounters Encounter Location Date Provider Diagnosis [facility] - Cici Fuller [address] [place] [address] 06/09/2024 Cici Fuller Type 2 diabetes elle [...] D deficiency- Low vitamin D levelsPlan:- Recommend bfgb-dly-dmajhrt vitamin D supplement once daily 6. Iron [...] examination and/or evaluation, counseling and educating the patient/family/vp care management, ordering medications, tests, or procedures, referring and communicating with other health acute care surgeon, documenting clinical information in the electronic or other health record, independently interpreting results and communicating results to the patient/family/vp care management and care coordinating patient plan. Patient alert [...] D deficiency- Low vitamin D levelsPlan:- Recommend mqih-zxo-rxusftc vitamin D supplement once daily 6. Iron [...] procedures, referring and communicating with other health acute care surgeon, documenting clinical information in the electronic or [...] Notes * Kermit MACKOB:2000 (23 yo F)Acc No.[id number]:06/09/2024 Progress Notes Patient: Violet KELLY Provider: Zhen Fuller MD :2000 A ge:23 Y S ex:Female Date:06/09/2024 Address:[address] [place] [address] [address] [facility] Subjective: * Chief Complaints: * 1 . [...] NEUTROPHILS 61.5 - % ABSOLUTE NEUTROPHILS [phone] - cells/u L LYMPHOCYTES 29.1 - % [...] FOLATE, SERUM >24.0 - ng/mL VITAMIN B12 [phone] - pg/mL L ab:ACTH, PLASMA (Order Date [...] D deficiency- Low vitamin D levelsPlan:- Recommend sfny-jpu-odkygvg vitamin D supplement once daily 6. Iron [...] procedures, referring and communicating with other health acute care surgeon, documenting clinical information in the electronic or [...] ? * Procedure Codes: 9 9401 P/M GRINDING AND POLISHING LABORER, INDIV 15 MIN * Follow Up: 2 Months (Reason: labwork) * Billing Information: * Visit Code: 55375 Office Visit, Est Pt., Level 4. Modifiers: 95 * Procedure Codes: 01854 P/M GRINDING AND POLISHING LABORER, INDIV 15 MIN. * MS PROCESSOR Sign off status: Completed true * Provider: Zhen Fuller MD Date: 08/10/2023 Generated for Printi ng/Faxing/eTransmitting on: 0 10/25/2024 11:16 AM CDT History and Physical Notes * [...]
--- OUTSIDE RECORDS SUMMARY | 2024-10-25 11:17 | XMS_ITS | Clinical Summary ---
Author Organization [facility] Address [address] [place] [address] Care Team Providers Care Bakery Pastry Internship Name Role Phone Hernan Madden MD Primary [...] Description 10/16/2024 10:15 AM CDT Office Visit [facility] - [place] [address] [place] [address] Mike Llanes MD Leukocytosis, unspecified type (Primary Dx) 10/16/2024 Orders Only [facility] - [place] [address] [place] [address] Mike Llanes MD 09/30/2024 External Device Data STL ABSTRACTION Provider, [...] on file Legal Sex Female 1:45 PM CLOSET BUILDER Gender Identity Not on file Sexual Orientation [...] cm (5' 6 ) 06/12/2024 11:49 AM CLOSET BUILDER Body Mass Index 27.18 06/12/2024 11:49 AM CLOSET BUILDER Plan of Treatment Upcoming Encounters Date Type Department Care Team (Late st Contact Info) Description 04/23/2025 11:00 AM CLOSET BUILDER Office Visit [facility] - [place] [address] [facility] [address] [place] [address] Mike Llanes MD [address] [facility] [address] [place] [address] Health Maintenance Due Date Last Done Comments CHLAMYDIA SCREENING (ANNUAL) 11-24 YEARS 2012 HPV VACCINES (1 - 3-dose series) 2016 DIABETES ANNUAL FOOT EXAM 2019 DIABETES ANNUAL RETINAL EXAM 2019 DIABETES MICROALBUMIN ANNUAL SCREEN 2019 LDL CHOLESTEROL ANNUAL 2019 DTAP/TDAP/TD VACCINES (1 - Tdap) 2020 HEPATITIS B VACCINES (1 of 3 - 19+ 3-dose series) 2020 CERVICAL CANCER SCREENING 2022 HPV/Cotest (21-29) 2022 PAP SMEAR 2022 DIABETES HBA1C Q 6 MONTHS 10/13/2024 04/14/2024, INFLUENZA VACCINE Completed 04/23/2024 Procedures Procedure Name Priority Date/Time Associated Diagnosis Comments CBC WITH DIFFERENTIAL Routine 10/16/2024 4:04 PM CDT from Last 3 Months Results * CBC WITH DIFFERENTIAL (10/16/2024 4:04 PM CDT) Blood us Mike Llanes MD HEMATOLOGY ORDERABLES Final Res ult from Last 3 Months Insurance MEDICARE PART A AND B [facility] Care Teams Bakery Pastry Internship Relationship Specialty Start Date End Date Hernan Madden MD [address] [place] [address] [address] [place] [phone] PCP - General Internal Medicine 06/27/24
--- OUTSIDE RECORDS SUMMARY | 2024-10-25 11:17 | XMS_ITS | Clinical Summary ---
Author Organization [facility] [employer] Address [address] [facility] [place] [address] Care Team Providers Care Face Man Name Role Phone Unavailable Primary Care Provider Unavailabl e Source Comments [facility] [employer],non-owned Affiliates and Associated Physician Practices is amultiple site organization consisting of ambulatory clinics and hospital sitesin [place], [place], [place] and [place]. This disclosure is being madepursuant to the Care Everywhere program and may not contain all information available regarding this patient. Last updated 18.[facility] [employer] Allergies Active Allergy Reactions Criticality Noted Date [...] for Itching Active Blood Glucose Monitoring Suppl (RetailMLSUCH VERIO IQ SYSTEM) w/Device KIT Use 1 [...] 3 0 Active Blood Glucose Monitoring Suppl (RetailMLSUCH VERIO FLEX SYSTEM) w/Device KIT Use 1 [...] file Legal Sex Female 5:45 AM MANAGER QUALITY IMPROVEMENT Gender Identity Not on file Sexual Orientation [...] Group ID:Not on file Type:Self Pay Address: [place], [place] MEDICARE [facility] MEDICARE [employer] [place] [employer] MEDICARE [facility] MED[place]ID [place]
[2024-10-25 11:32] VITALS: BP 105/68; PULSE 96; RESP 16; TEMP 36.1; O2SAT 100
--- OUTSIDE RECORDS SUMMARY | 2024-10-25 12:18 | XMS_ITS | Encounter Summary ---
Author Organization [facility] Address [address] [place] [address] Care Team Providers Care Landscaper Helper Name Role Phone Marcelle Hernandez MD Primary Care Provider [phone] Reason for Visit * Reason Onset Date Comments Scheduling 06/27/2019 Encounter Details Date Type Department Care Team (Late st Contact Info) Description 06/27/2019 Telephone [facility] [address] [place] [address] Mita Crum MD [facility] [place] [address] Scheduling Social History Tobacco Use Types Packs/Day Years Used Date Smoking Tobacco: Never Smokeless Tobacco: Never Alcohol Use Standard Drinks/Week Comments No 0 (1 standard drink = 0.6 oz pur e alcohol) Comments No Sex and Gender Information Value Date Recorded Sex Assigned at Not on file Legal Sex Female 5:45 AM FURNACE WORKER Gender Identity Not on file Sexual Orientation [...] would like prep mailed to her at: [address] [facility] [address] Of note: Pt has diabetes, and Mom [...] Emily Lozano RN - 08/18/2019 10:51 AM FURNACE WORKER Verified orders in epic. Prep instructions given to family in clinic. ACE WORKER * Telephone Encounter - Nayeli Toledo - 08/18/2019 10:49 AM FURNACE WORKER Spoke with Stephanie in the clinic, scheduled EGD for 09/19/2019 @ 2:[address] Crum. ACE WORKER * Telephone Encounter - Glenna Calderon RN - 06/27/2019 1:28 PM CST Patient will need appointment with with MD before any procedures are ordered/scheduled. Will route to scheduling. May schedule with any provider as it has been so long since she has been seen. ACE WORKER * Telephone Encounter - Felisa Ramesh - 06/27/2019 1:22 PM CST Mom called and left a message that Dr. Madsen from [facility] is referring this pt to Dr. Crum. Mom says that Dr. Madsen wants the pt to have an upper GI scheduled before she will give medication. ACE WORKER documented in this encounter Plan of Treatment Not on file documented as of this encounter Visit Diagnoses Not on filedocumented in this encounter Additional Health Concerns Infection Onset Date Last Indicated Resolved Time COVID-19 Under Investigation 12/22/2019 12/23/2019 12/24/2019 2:58 PM CDT documented as of this encounter Care Teams Landscaper Helper Relationship Specialty Start Date End Date Marcelle Hernandez MD [address] [place] [address] PCP - General Pediatrics 12/27/15 09/30/24 documented as of this encounter
--- OUTSIDE RECORDS SUMMARY | 2024-10-25 12:18 | XMS_ITS | Encounter Summary ---
Author Organization [facility] Address [address] [place] [address] Care Team Providers Care Workforce Development Specialist Name Role Phone Marcelle Hernandez MD Primary Care Provider [phone] Encounter Details Date Type Department Care Team (Late st Contact Info) Description 09/17/2019 Telephone [facility] Pediatrics - Diabetes [address] [address] Camron Brandon, CARMEN-ART DIRECTOR [address] [place] [address] Social History Tobacco Use Types Packs/Day Years Used Date Smoking Tobacco: Never Smokeless Tobacco: Never Alcohol Use Standard Drinks/Week Comments No 0 (1 standard drink = 0.6 oz pur e alcohol) Comments No Sex and Gender Information Value Date Recorded Sex Assigned at Not on file Legal Sex Female 5:45 AM TERRAZZO ROLLER Gender Identity Not on file Sexual Orientation [...] documented as of this encounter Care Teams Workforce Development Specialist Relationship Specialty Start Date End Date Marcelle Hernandez MD [address] [facility] [address] [place] [address] PCP - General Pediatrics 12/27/15 09/30/24 documented as of this encounter
--- OUTSIDE RECORDS SUMMARY | 2024-10-25 12:19 | XMS_ITS | Clinical Summary ---
Author Organization [facility] Address [address] [place] [address] Care Team Providers Care Ground Source Heat Pump Technician Name Role Phone Sukhwinder Madden MD Primary [...] Cartridge) 30 gauge combo pack 30 each charge coordinator before breakfast 3 each 3 3 Active [...] 08/04/2021 Assessment & Plan (05/31/2023 4:15 PM HELPER COORDINATOR): Hba1c was Lab Results Component Value Date [...] on file Legal Sex Female 12:00 PM HELPER COORDINATOR Gender Identity Not on file Sexual Orientation Not on file Obstetrics History Last Filed Vital Signs Vital Sign Reading Time Taken Comments Blood Pressure 120/70 05/31/2023 2:17 PM HELPER COORDINATOR Pulse 105 05/31/2023 2:17 PM HELPER COORDINATOR Temperature - - Respiratory Rate 18 05/31/2023 2:17 PM HELPER COORDINATOR Oxygen Saturation - - Inhaled Oxygen Concentration - - Weight 80.7 kg (178 lb) 05/31/2023 2:17 PM HELPER COORDINATOR Height 166.4 cm (5' 5.5 ) 05/31/2023 2:17 PM HELPER COORDINATOR Body Mass Index 29.17 05/31/2023 2:17 PM HELPER COORDINATOR Plan of Treatment Health Maintenance Due Date [...] HEMOGLOBIN A1C Routine 05/31/2023 2 :17 PM HELPER COORDINATOR Type 2 diabetes mellitus with hyperglycemia, with long-term current use of insulin (HCC) from Last 3 Months or Most Recently Relevant to Health Maintenance Results * (ABNORMAL) POCT hemoglobin A1c (05/31/2023 2:17 PM HELPER COORDINATOR) Hemoglobin A1C, POC 7.5 % Blood spot 05/31/2023 2:17 PM HELPER COORDINATOR Marco Antonio Geller MD POINT OF CARE TEST ORDERABLES Fi nal Result from Last 3 Months or Most Recently Relevant to Health Maintenance Insurance MEDICARE [employer] [place] MEDICARE [employer] [place] Care Teams Ground Source Heat Pump Technician Relationship Specialty Start Date End Date Sukhwinder Madden MD [address] [place] [address] PCP - General Internal Medicine 04/27/22
--- OUTSIDE RECORDS SUMMARY | 2024-10-25 12:19 | XMS_ITS | CONTINUITY OF CARE DOCUMENT ---
Author Name meg, meg Address Unknown Organization [facility] Address [address] [place] [address] Phone [phone] Care Team Providers Care [place] Program Coordinator Name Role Phone Ward Fried MD Unavailable ERICA JUARSE MD Unavailable [phone] ALENA JOHNSON MD Unavailable [phone] PROBLEMS Condition Status Date Provider Notes Palpitations [...] In-person encounter Office Visit Ward Fried MD [facility] Cardiology examination - In-person encounter Office Visit Ward Fried MD [facility] Postural orthostatic tachycardia syndrome - In-person encounter Office Visit Ward Fried MD [facility] - In-person encounter Office Visit Ward Fried MD [facility] - In-person encounter Office Visit Ward Fried MD [facility] - In-person encounter Office Visit Ward Fried MD [facility] Vaccination - COVID-19 - In-person encounter Office Visit Ward Fried MD [facility] - In-person encounter Office Visit Ward Fried MD [facility] Sinus tachycardia - In-person encounter Office Visit Ward Fried MD [facility] PalpitationsDiabetes mellitus, Type IIGERDDizzinessADHDScoliosi s; has [...] mcgregor Morris oxygen saturation, oximetry 100 % [facility] Morris pulse rate 95 /min [facility] Morris blood pressure, cuff size regular Reji chelsea Morris weight E&M 179.6 [lb_av] [facility] height E&M 64 [in_i] [facility] Morris Body Mass Index (Ratio) 30.38 [...] Gruenenfe er weight E&M 162 [lb_av] [place] Body Mass Index (Ratio) 27.80 kg/m2 Jer [...] USE Medication Status Instructions Dates Provider Indications [facility] ments Victoza 2-Librado 0.6 mg/0.1 mL (18 mg/3 mL) pen injector active Inject 0.6 mg subcutaneously once a day Grisel Soni [employer] G6 Sensor device active Apply 1 device [...] 1 TABLET BY MOUTH TWICE A DAY [facility] Specialist lansoprazole 15 mg capsule,delayed release(DR/EC) completed [...] completed once a day - Chrissy Matthewmiglia [facility] SOCIAL HISTORY Date Observation Value Provider personal [...] history of marijuana use no Chrissy Ventimiglia [facility] drug use no Chrissy Ventimig mayra [facility] alcohol use no Chrissy Ventimig mayra [facility] smoking status Never smoker Chrissy Ventim iglia [facility] drug use no Ward Fried MD alcohol [...] Payer name Policy type / Coverage type [place] red libertarian ID [id number] [place] MEDICARE Medicare [id number] ADVANCE DIRECTIVES Name Date DISCUSSED - NO DECISION MADE TREATMENT PLAN Date Name Performer [id number],B, Ward Fried MD [id number],S,Per Dr Jonny Fried MD [id number],B, Ward Fried MD [id number],B, Ward Fried MD [id number],C, P shikha feels much better on Corlanor. [...] 1 capsule once a day Chrissy Emery [facility] Cardiology:poorly co ntrolled referred back to endocrine l pamellaestdeisy modification encouraged W ill resume Victoza as tolerated well in past and needs control of glucose to reduce cardiac risk factors and glycemic control. s he reports blood glucose as high as 558. Chrissy Ventimiglia [facility] Cardiology:continue corlanor [place] jonas Ventimiglia [facility] Cardiology:Has repor ts of chest pain, SOB and palpitations. Also, associated with diaphoresis. S he has very uncontrolled blood glucose W ill plan routine stress test. Chrissy Ventimiglia [facility] Cardiology:Continues to have episodes of palpitations better with corlanor Chrissy Ventimiglia [facility] Cardiology:on Mounjaro Ward escobedo MD Cardiology:Needs 48hr [...] the medicine approve by her insurance. Ward rFied MD Cardiology Follow up Ward kinsey MD [...]
--- OUTSIDE RECORDS SUMMARY | 2024-10-25 12:19 | XMS_ITS | Clinical Summary ---
Author Organization [facility]ila [facility] Address [address] [place] [address] Care Team Providers Care Organ Pipe Voicer Name Role Phone Hernan Madden MD Primary [...] Description 10/16/2024 10:15 AM CDT Office Visit [facility] Oncology and Hematology - [address] [place] [phone] Mike Llanes MD Leukocytosis, unspecified type (Primary Dx) 10/16/2024 Orders Only [facility] Oncology and Hematology - [place] [address] [place] [phone] Mike Llanes MD 09/30/2024 External Device Data [...] on file Legal Sex Female 1:45 PM MARKING ROOM SUPERVISOR Gender Identity Not on file Sexual Orientation [...] cm (5' 6 ) 06/12/2024 11:49 AM MARKING ROOM SUPERVISOR Body Mass Index 27.18 06/12/2024 11:49 AM MARKING ROOM SUPERVISOR Plan of Treatment Upcoming Encounters Date Type Department Care Team (Late st Contact Info) Description 04/23/2025 11:00 AM MARKING ROOM SUPERVISOR Office Visit [facility] Oncology and Hematology - [place] [address] [facility] [address] [place] [address] Mike Llanes MD [address] [facility] [address] [place] [address] Health Maintenance Due Date Last [...] Months Insurance MEDICARE PART A AND B [facility] Address: [address] [place] [address] Care Teams Organ Pipe Voicer Relationship Specialty Start Date End Date Hernan Madden MD [address] [place] [address] Dr [address] [place] [phone] PCP - General Internal Medicine 06/27/24
--- OUTSIDE RECORDS SUMMARY | 2024-10-25 12:19 | XMS_ITS | Clinical Summary ---
Author Organization [facility] Address [address] [place] [address] Care Team Providers Care Comparison Shopper Name Role Phone Unavailable Primary Care Provider Unavailabl e Source Comments [facility],non-owned Affiliates and Associated Physician Practices is amultiple site organization consisting of ambulatory clinics and hospital sitesin [place], [place], [place] and [place]. This disclosure is being madepursuant to the Care Everywhere program and may not contain all information available regarding this patient. Last updated 18.[facility] Allergies Active Allergy Reactions Criticality Noted Date [...] for Itching Active Blood Glucose Monitoring Suppl (Royalty ExchangeUCH VERIO IQ SYSTEM) w/Device KIT Use 1 [...] 3 0 Active Blood Glucose Monitoring Suppl (Royalty ExchangeUCH VERIO FLEX SYSTEM) w/Device KIT Use 1 [...] on file Legal Sex Female 5:45 AM ASSISTANT SCIENTIST Gender Identity Not on file Sexual Orientation [...] Group ID:Not on file Type:Self Pay Address: [place], [place] MEDICARE [facility] MEDICARE [employer] SPECIALTY RISK MEDICARE [facility] SPECIALTY RISK MEDICAID [place]
--- OUTSIDE RECORDS SUMMARY | 2024-10-25 12:19 | XMS_ITS | Referral Summary ---
Author Organization [facility] Address [address] [place] [address] Care Team Providers Care Resource Management Specialist Name Role Phone Sukhwinder Madden MD Primary [...] Cartridge) 30 gauge combo pack 30 each early childhood coordinator before breakfast 3 each 3 3 [...] 08/04/2021 Assessment & Plan (05/31/2023 4:15 PM FOLDER TAPER OPERATOR): Hba1c was Lab Results Component Value Date [...] on file Legal Sex Female 12:00 PM FOLDER TAPER OPERATOR Gender Identity Not on file Sexual Orientation Not on file Last Filed Vital Signs Vital Sign Reading Time Taken Comments Blood Pressure 120/70 05/31/2023 2:17 PM FOLDER TAPER OPERATOR Pulse 105 05/31/2023 2:17 PM FOLDER TAPER OPERATOR Temperature - - Respiratory Rate 18 05/31/2023 2:17 PM FOLDER TAPER OPERATOR Oxygen Saturation - - Inhaled Oxygen Concentration - - Weight 80.7 kg (178 lb) 05/31/2023 2:17 PM FOLDER TAPER OPERATOR Height 166.4 cm (5' 5.5 ) 05/31/2023 2:17 PM FOLDER TAPER OPERATOR Body Mass Index 29.17 05/31/2023 2:17 PM FOLDER TAPER OPERATOR Plan of Treatment Not on file Procedures Procedure Name Priority Date/Time Associated Diagnosis Comments POCT HEMOGLOBIN A1C Routine 05/31/2023 2 :17 PM FOLDER TAPER OPERATOR Type 2 diabetes mellitus with hyperglycemia, with long-term current use of insulin (HCC) from Last 3 Months or Most Recently Relevant to Health Maintenance Results * (ABNORMAL) POCT hemoglobin A1c (05/31/2023 2:17 PM FOLDER TAPER OPERATOR) Hemoglobin A1C, POC 7.5 % Blood spot 05/31/2023 2:17 PM FOLDER TAPER OPERATOR Marco Antonio Geller MD POINT OF CARE TEST ORDERABLES Fi nal Result from Last 3 Months or Most Recently Relevant to Health Maintenance Insurance [facility]ICARE [facility] MEDICARE [employer] [place] Care Teams Resource Management Specialist Relationship Specialty Start Date End Date Sukhwinder Madden MD [address] [place] [address] PCP - General Internal Medicine 04/27/22
--- OUTSIDE RECORDS SUMMARY | 2024-10-25 12:19 | XMS_ITS | Continuity of Care Document ---
Author Organization [facility] Address [address] [place] [address] Phone Care Team Providers Care Drying Machine Tender Name Role Phone Allred OD, Miguel Angel Unavailable Unavailable Procedures Procedure Date Eye Exam & Treatment Refraction SV Poly Carb Sph +/- 7.12 To +/- 20 D Au Vision Svcs Frames Purchases Medical Tax Advance Directives Directive Yes / No Effective Date File Name No Information Encounters Encounter Description Practice Location Reason(s) For Visit Diagnoses Date Provider Providers Copied on Encounter [facility], [address] [place] [address] [address], [place], [place], [id number], [place] tel:[phone] [facility] No Information 0-201 0 Allred OD Miguel Angel. [address] , [address], [place], [address], [place]. tel:[phone] [facility], [address] [place] [address] [address], [place], [place], [id number], [place] tel:[phone] [facility] No Information [address] [facility] . [address], [address], [place], [place], [id number], [place]. tel:[phone] Referring Provider: Miguel Angel Allred OD Cami, [address], [place], [address]. tel:[phone] payan Provider: Ck Read, [address] [facility], [place], [address]. tel:[phone] Family History Family Member Type Diagnosis Age At Onset No Information Payers Payer name Insurance type Covered constitution party ID Authorclair padgett(s) Medicaid [facility] [id number] Social History Type Description Quantity Date Captured [...]
--- NOTE | 2024-10-25 12:58 | ED.LOWEXIN ---
HPI - Extremity Injury (Lower) General Chief Complaint: Extremity Injury, Lower Stated Complaint: Injury to right foot/ankle Time Seen by Provider: 10/25/24 12:11 History of Present Illness HPI Narrative: 24-year-old female presenting to the emergency department for right ankle injury. Patient fell down several steps yesterday and rolled her ankle. Has been walking on applying ice but now it hurts to the touch. She has some bruising on the dorsal lateral aspect of the right ankle. No restricted range of motion or neuropathy. No weakness. No other injuries or head trauma. No other symptomatology at this time. Related Data Home Medications ?Medication ?Instructions ?Recorded ?Confirmed ?Last Taken ?Type omeprazole 40 mg capsule,delayed 40 mg PO DAILY 07/19/20 05/06/24 Unknown History release blood sugar diagnostic (Impakt ProtectiveTouch 03/23/21 05/06/24 Unknown History Ultra Test strips) blood-glucose meter (Impakt ProtectiveTouch 03/23/21 05/06/24 Unknown History Ultra2 Meter) cetirizine 10 mg tablet 10 mg PO DAILY PRN allergies 03/23/21 05/06/24 Unknown History lancets 33 gauge (OneTouch Delica 03/23/21 05/06/24 Unknown History Plus Lancet) pen needle, diabetic 31 gauge x 03/23/21 05/06/24 Unknown History /16 (BD Ultra-Fine Short Pen Needle) lamotrigine 100 mg tablet 100 mg PO BID 06/13/23 05/06/24 Unknown History metformin 500 mg tablet 500 mg PO DAILY 06/13/23 05/06/24 Unknown History venlafaxine 75 mg capsule,extended 75 mg PO DAILY 06/13/23 05/06/24 Unknown History release 24 hr ivabradine 5 mg tablet (Corlanor) 5 mg PO BID 01/02/24 05/06/24 Unknown History rosuvastatin 20 mg tablet mg PO 04/01/24 05/06/24 Unknown History Allergies Allergy/AdvReac Type Severity Reaction Status Date / Time mold Allergy Unknown Unknown Verified 05/06/24 11:38 ragweed pollen Allergy Unknown Unknown Verified 05/06/24 11:38 pepper (genus Capsicum) Allergy Rash Verified 05/06/24 11:38 semaglutide (From Ozempic) AdvReac Severe Nausea and Verified 05/06/24 11:38 Vomiting clortermine AdvReac Mild Itching Verified 05/06/24 11:38 ibuprofen (From DayQuil AdvReac Itching Verified 05/06/24 11:38 Sinus Pressure/Pain) pseudoephedrine (From AdvReac Itching Verified 05/06/24 11:38 DayQuil Sinus Pressure/Pain) chlortrimeton Allergy Unknown Rash Uncoded 05/06/24 11:38 Review of Systems Review of Systems: As reviewed above in [facility] Past Medical History Medical History Diabetes mellitus type 2 in obese Obesity Epigastric pain Belching Dysphagia Type 2 diabetes mellitus Acid reflux ADHD Asthma Depression Dyslexia Surgical History Surgical History Previous back surgery Family History Family History Grandparent Diabetes mellitus Family history of hypercholesterolemia Hypertension Father Diabetes mellitus Mother Morbid obesity Asthma Sibling No problems noted. Social History Social History Smoking status: Never smoker Second hand tobacco smoke exposure: No Alcohol intake: current Alcohol use details: rarely Substance use: current Substance use type: marijuana Last use: once a month Do You Feel Safe in your Home?: Yes Lack of Transportation: No Lack of Food: Never True Current Housing: I Have Housing Concerned About Future Housing: No Difficulty Paying Gas/Electric Bills: No Difficulty Paying for Meds: No Currently Unemployed: No Education: High School Diploma/GED Difficulty w/ Childcare or Family Care: No Living arrangements: with family Occupation/Education: unemployed Additional occupation/education comments: disabled Gender identity (if verbalized by the patient): Female Sexual Orientation (if Verbalized by the Patient): Straight or Heterosexual Spiritual care concerns: No Exam Narrative: GENERAL: [Well-appearing, well-nourished, and in no acute distress.] HEAD: [Normocephalic, atraumatic.] EYES: [PERRLA and EOMI.] ENT: Nares clear, no rhinorrhea or epistaxis. Mucous membranes moist. NECK: Supple. CHEST: [Clear to auscultation. No respiratory distress.] HEART: [Regular rate and rhythm]. No murmur heard. [Normal peripheral pulses.] ABDOMEN: [Soft, nondistended], [nontender], [No rigidity or guarding] EXTREMITIES: Normal range of motion. There is some tenderness to palpation and ecchymoses over the dorsal lateral aspect of the right ankle near the lateral malleolus. No step-offs deformities. No plantar deformity or ecchymosis on the plantar surface. Good range of motion of the ankle and toes. Tenderness reproducible palpation. 2+ dorsalis pedis pulse and warm extremity. SKIN: Warm, dry, no rash. NEURO: [No focal deficits]. Alert and oriented [x3.] PSYCH: [Normal mood and affect.] Course Vital Signs Vital signs: Vital Signs Temperature 36.1 C L 10/25/24 11:32 Pulse Rate 96 10/25/24 11:32 Respiratory Rate 16 10/25/24 11:32 Blood Pressure 105/68 10/25/24 11:32 Pulse Oximetry 100 10/25/24 11:32 Temperature 36.1 C L 10/25/24 11:32 Pulse Rate 96 10/25/24 11:32 Respiratory Rate 16 10/25/24 11:32 Blood Pressure 105/68 10/25/24 11:32 Pulse Oximetry 100 10/25/24 11:32 MDM - Extremity Injury (Lower) MDM Narrative Medical decision making narrative: 24-year-old female presenting with right ankle pain after falling down several steps yesterday. Isolated ankle injury without any other trauma. She is otherwise not any acute distress, did not take anything for pain prior to arrival. Has normal vitals and warm extremity. 2+ pulses. Good range of motion and she does have evidence of ecchymoses on the dorsal lateral aspect of the right foot near the lateral malleolus. Suspicion presently is for high ankle sprain, occult ankle fracture, lateral malleolus fracture, low suspicion dislocation. X-rays of the ankle were obtained and she was provided Mobic and Tylenol for analgesia. Lenny wrap applied and crutches provided. X-ray was independent reviewed interpreted by Radiology without any acute osseous process. Patient was given instructions on how to care for her ankle sprain and she was discharged home at this time. Medical Records Attestation: I reviewed the patient's medical records. Imaging Data Attestation: I personally reviewed and interpreted this imaging study as follows: My impression: Impressions Ankle X-Ray 10/25/24 12:02 IMPRESSION: 1. No evident ankle joint effusion or osseous abnormality. Discharge Plan Discharge Clinical Impression: High ankle sprain of right lower extremity Patient Disposition: Home Condition: Stable Instructions: Antibiotic Form, Ankle Sprain (DC) Additional Instructions: Apply ice up to 20 minutes at a time to right ankle, maintain the Lenny wrap for comfort and swelling, use crutches for ambulation assistance, weight-bearing as tolerated and early mobilization will help heal faster. Take Tylenol 1000 mg every 8 hours, take meloxicam 7.5 mg daily. Return with any emergent concerns otherwise follow-up with regular doctor. Ankle sprains take several weeks to heal. Patient Language: Taiwanese Prescriptions: New meloxicam 7.5 mg tablet 7.5 mg PO DAILY Qty: 20 0RF acetaminophen [Tylenol Extra Strength] 500 mg tablet 1,000 mg PO TID PRN (Reason: pain) Qty: 30 0RF No Action omeprazole 40 mg capsule,delayed release(DR/EC) 40 mg PO DAILY Corlanor 5 mg tablet 5 mg PO BID Rx Instructions: must administer with a meal/food rosuvastatin 20 mg tablet PO (DME) blood-glucose meter [Impakt ProtectiveTouch Ultra2 Meter] Misc MISCELLANEOUS cetirizine 10 mg tablet 10 mg PO DAILY PRN (Reason: allergies) (DME) OneTouch Ultra Test Strip MISCELLANEOUS (DME) pen needle, diabetic [BD Ultra-Fine Short Pen Needle] 31 gauge x 5/16 needle MISCELLANEOUS (DME) lancets [OneTouch Delica Plus Lancet] 33 gauge misc MISCELLANEOUS albuterol sulfate 90 mcg/actuation HFA aerosol inhaler 2 puff inhalation QID PRN (Reason: shortness of breath or wheezing) Qty: 8.5 0RF epinephrine [EpiPen 2-Librado] 0.3 mg/0.3 mL auto-injector 0.3 mg IM ONCE Qty: 2 0RF Rx Instructions: as a single dose; may repeat once lamotrigine 100 mg tablet 100 mg PO BID metformin 500 mg Tablet 500 mg PO DAILY venlafaxine 75 mg capsule,extended release 24hr 75 mg PO DAILY ondansetron 4 mg tablet,disintegrating 4 mg PO Q8H PRN (Reason: nausea and vomiting) Qty: 15 0RF diclofenac sodium 75 mg tablet,delayed release (DR/EC) See Rx Instructions .ROUTE .COMPLEX Qty: 60 1RF Dose Instruction: Take 1 tablet by mouth twice daily Rx Instructions: Take 1 tablet by mouth twice daily Follow-up/Referrals: Maryanne,MD Hernan [Primary Care Provider] - Time of Disposition: 13:04
[2024-10-25] MEDS: ACETAMINOPHEN 500 MG TABLET 1000 MG PO (13:23)
[2024-10-25] MEDS: MELOXICAM 7.5 MG TABLET PO (13:23)
[2024-10-25 14:23] VITALS: BP 130/84; PULSE 86; RESP 14; O2SAT 99
== END 2024-10-25 14:24 | disposition home or self-care (01) ==
PROVIDERS: Emergency Provider Student in an Organized Health Care Education/Training Program; PCP Internal Medicine
DX: S93.401A Sprain of unspecified ligament of right ankle, initial encounter (principal); J45.909 Unspecified asthma, uncomplicated; E11.9 Type 2 diabetes mellitus without complications; K21.9 Gastro-esophageal reflux disease without esophagitis; F90.9 Attention-deficit hyperactivity disorder, unspecified type; F32.A Depression, unspecified; R48.0 Dyslexia and alexia; Z79.84 Long term (current) use of oral hypoglycemic drugs; Z79.899 Other long term (current) drug therapy; W10.9XXA Fall (on) (from) unspecified stairs and steps, initial encounter
CPT/HCPCS: 73610; 99283; A9270

== ENCOUNTER 2024-11-18 11:26 | Outpatient (CLI) | payer MEDICARE, OTHER, SELFPAY ==
--- NOTE | ~2024-11-18 | US_ITS ---
Pelvic ultrasound. Clinical History: First trimester , establish dates and viability Technique: Realtime transabdominal and transvaginal scanning of the pelvis was performed. Color flow Doppler and Doppler spectral analysis were performed. Findings: The uterus is anteverted, and contains an intrauterine gestation.. [place]-rump length of 1.5 cm corresponds to an estimated gestational age of 7 weeks 6 days. heart rate is 161 bpm. The right ovary measures 2.9 x 2.5 x 2.6 cm. No significant right ovarian or adnexal mass is seen. The left ovary measures 2.3 x 3.7 x 2.0 cm. No significant left ovarian or adnexal mass is seen. There is no evidence of free fluid in the cul de sac. Impression: Live intrauterine gestation, with estimated gestational age of 7 weeks 6 days. heart rate is 16 1 bpm. Sonographic JESSICA is 06/30/2025. Reviewed, dictated and finalized at [facility]. Impression: Live intrauterine gestation, with estimated gestational age of 7 weeks 6 days. heart rate is 161 bpm. Sonographic JESSICA is 06/30/2025.
== END 2024-11-18 11:27 | disposition home or self-care (01) ==
LOC: MICIMG 11:27
PROVIDERS: PCP Internal Medicine; Visit Provider Obstetrics & Gynecology
DX: Z34.91 Encounter for supervision of normal pregnancy, unspecified, first trimester (principal); Z3A.01 Less than 8 weeks gestation of pregnancy
CPT/HCPCS: 76801

== ENCOUNTER 2024-12-03 14:25 | Emergency (ER) | payer MEDICARE, OTHER, SELFPAY ==
[2024-12-03 14:31] VITALS: BP 99/68; PULSE 92; RESP 18; TEMP 36.7; O2SAT 100
--- OUTSIDE RECORDS SUMMARY | 2024-12-03 16:22 | XMS_ITS | Encounter Summary ---
Author Organization [facility] Address [address] [place] [address] Care Team Providers Care Card Clothier Name Role Phone Unavailable Primary Care Provider Unavailabl e Encounter Details Date Type Department Care Team (Late st Contact Info) Description 12/03/2024 Orders Only [facility] PH[facility] OB [address] [place], [place] [id number] Castillo Shah MD [address] [facility] [place]etric[place] [phone] Social History Tobacco Use Types Packs/Day Years Used Date Smoking Tobacco: Never Smokeless Tobacco: Never Alcohol Use Standard Drinks/Week Comments No 0 (1 standard drink = 0.6 oz pur e alcohol) Overall Financial Resource Strain (CARDIA) Answe r Date Recorded How hard is it for you to pa y for the very basics like food, housing, medical care, and heating? Not very hard 11/24/2024 [facility] [place] [facility] - Occupational Stress Questionnaire Answer Date Recorded Do you feel stress - tense, restless, nervous, or anxious, or unable to sleep at night because your mind is troubled all the time - these days? Not at all 11/24/2024 Hunger Vital Sign Answer Date Recorded Within the past 12 months, y ou worried that your food would run out before you got the money to buy more. Never true 11/25/19 25 Within the past 12 months, t he food you bought just didn't last and you didn't have money to get more. Never true 11/24/2024 PRAPARE - Transportation Answer Date Re corded In the past 12 months, has l ack of transportation kept you from medical appointments or from getting medications? No 02/2025 In the past 12 months, has l ack of transportation kept you from meetings, work, or from getting things needed for daily living? No 11/24/2024 Moore Depression Scale Answer Date Recorded Moore Depression Scale Total 2 11/24/2024 The thought of harming myself has occurred to me . Never 11/24/2024 Housing Stability Vital Sign Answer Yannick e Recorded In the last 12 months, was t here a time when you were not able to pay the mortgage or rent on time? No 11/24/2024 In the past 12 months, how m any times have you moved where you were living? 0 11/24/2024 At any time in the past 12 m [facility], were you homeless or living in a alf (including now)? 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 Answer Date of Assessment Author No 12/26/2019 12:06 PM Sridevi Kraft RN * Is person blind or have serious difficulty seeing? Answer Date of Assessment Author No 12/26/2019 12:06 PM Sridevi Kraft RN * Does person have serious difficulty walking/climbing stairs? Answer Date of Assessment Author No 12/26/2019 12:06 PM Sridevi Kraft RN * Does person have difficulty dressing/bathing? Answer Date of Assessment Author No 12/26/2019 12:06 PM Sridevi Kraft RN * Does person have difficulty doing errands alone? Answer Date of Assessment Author Yes 12/26/2019 12:06 PM Sridevi Kraft RN documented as of this encounter Mental Status * Does person have difficulty concentrating/remembering/making decisions? Answer Entry Date Author No 12/26/2019 12:06 PM Sridevi Kraft RN documented in this encounter Plan of Treatment Upcoming Encounters Date Type Department Care Team (Late st Contact Info) Description 12/08/2024 11:00 AM CDT Appointment [facility]/ EVALUATION UNIT [address] [place] [address] 12/08/2024 11:30 AM CDT Appointment [facility] EVALUATION UNIT [address] [place] [address] 02/09/2025 10:30 AM CDT Appointment [facility]/ EVALUATION UNIT [address] [place] [address] documented as of this encounter Visit Diagnoses Not on filedocumented in this encounter
--- OUTSIDE RECORDS SUMMARY | 2024-12-03 16:22 | XMS_ITS ---
Author Organization [facility] Address [address] [place] [address] Care Team Providers Care Certified Activities Director Name Role Phone Cici Fuller Primary Care Provider REASON FOR VISIT diabetes/ medicare & [employer] Encounters Encounter Location Date Provider Diagnosis [facility] - Cici Fuller [address] [place] [address] 10/29/2023 Cici Fuller Plan Of Treatment No Information Progress Notes * eKrmit MACKOB:2000 (24 yo F)Acc No.[id number]:10/29/2023 Progress Notes Patient: Zhen HALLMAN Violet Provider: Zhen Fuller MD :2000 A ge:23 Y S ex:Female Date:10/29/2023 [facility] [facility] Subjective: * Chief Complaints: * 1 . diabetes/ medicare & [employer]. * Medical History: Objective: * Vitals: Assessment: Plan: * Treatment: * Billing Information: * Visit Code: * Procedure Codes: * Electronic signature of Bobby Fuller MD on 12/03/2024 at 04:21 PM CDT Sign off status: Pending * Provider: Zhen Fuller MD Date: 10/29/2023 Generated for Marti bermeo/Mao/eTransmitting on: 12/03/2024 04:21 PM CDT
--- OUTSIDE RECORDS SUMMARY | 2024-12-03 16:22 | XMS_ITS | Encounter Summary ---
Author Organization [facility] Address [address] [place] [address] Care Team Providers Care Lute Packer Or Applier Name Role Phone Unavailable Primary Care Provider Unavailabl e Encounter Details Date Type Department Care Team (Late st Contact Info) Description 12/03/2024 Results Follow-Up [facility] MATERNAL/ EVALUATION UNIT [address] [place] [address] Castillo Shah MD [address] [facility] [place] [address] Social History Tobacco Use Types Packs/Day Years [...] care, and heating? Not very hard 11/24/2024 [facility] [place] of Occupat ional Health - Occupational Stress [...] things needed for daily living? No 11/24/2024 Pep Depression Scale Answer Date Recorded Pep Depression Scale Total 2 11/24/2024 The thought [...] any time in the past 12 m [facility], were you homeless or living in a care home (including now)? 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 [place] [address] 12/08/2024 11:30 AM CDT Appointment [facility] MATERNAL/ EVALUATION UNIT [address] [place] [address] 02/09/2025 10:30 AM CDT Appointment [facility] MATERNAL/ EVALUATION UNIT [address] [place] [address] documented as of this encounter Visit Diagnoses Not on filedocumented in this encounter
--- OUTSIDE RECORDS SUMMARY | 2024-12-03 16:22 | XMS_ITS | Encounter Summary ---
Author Organization [facility] Address [address] [place] [address] Care Team Providers Care Resident Services Supervisor Name Role Phone Marcelle Hernandez MD Primary Care Provider [phone] Reason for Visit * Reason Onset Date Comments Scheduling 06/27/2019 Encounter Details Date Type Department Care Team (Late st Contact Info) Description 06/27/2019 Telephone [facility] [address] [place] [address] Mita Crum MD [address] [place] [address] Scheduling Social History Tobacco Use Types Packs/Day Years Used Date Smoking Tobacco: Never Smokeless Tobacco: Never Alcohol Use Standard Drinks/Week Comments No 0 (1 standard drink = 0.6 oz pur e alcohol) Comments No Sex and Gender Information Value Date Recorded Sex Assigned at Not on file Legal Sex Female 5:45 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 However, she expressed understanding at having to reschedule. * Telephone Encounter - Ciera Peterson RN - 09/10/2019 3:00 PM CDT Discussed plan to reschedule EGD, mom is aware that marketing secretary will be calling to arrange. * Telephone Encounter - Mita Crum MD - 09/10/2019 2:56 PM CDT Unfortunately need to reschedule Violet's elective upper endoscopy for 2-3 months given COVID19 concerns * Telephone Encounter - Emily Lozano RN - 08/18/2019 10:51 AM SAFETY PATROL OFFICER Verified orders in epic. Prep instructions given to family in clinic. TY PATROL OFFICER * Telephone Encounter - Nayeli Toledo - 08/18/2019 10:49 AM SAFETY PATROL OFFICER Spoke with Stephanie in the clinic, scheduled EGD for 09/19/2019 @ 2:[address] Crum. TY PATROL OFFICER * Telephone Encounter - Glenna Calderon RN - 06/27/2019 1:28 PM CST Patient will need appointment with with MD before any procedures are ordered/scheduled. Will route to scheduling. May schedule with any provider as it has been so long since she has been seen. TY PATROL OFFICER * Telephone Encounter - Felisa Ramesh - 06/27/2019 1:22 PM CST Mom called and left a message that Dr. Madsen from [facility] is referring this pt to Dr. Crum. Mom says that Dr. Madsen wants the pt to have an upper GI scheduled before she will give medication. TY PATROL OFFICER documented in this encounter Plan of Treatment Upcoming Encounters Date Type Department Care Team (Late st Contact Info) Description 12/08/2024 11:00 AM CDT Appointment [facility] MATERNAL/ EVALUATION UNIT [address] [place] [address] 12/08/2024 11:30 AM CDT Appointment [facility] MATERNAL/ EVALUATION UNIT [address] [place] [address] Ave[address] [place] [address] 02/09/2025 10:30 AM CDT Appointment [facility] MATERNAL/ EVALUATION UNIT [address] [place] [address] Ave[address] [place] [address] documented as of this encounter Visit Diagnoses Not on filedocumented in this encounter Additional Health Concerns Infection Onset Date Last Indicated Resolved Time COVID-19 Under Investigation 12/22/2019 12/23/2019 12/24/2019 2:58 PM CDT documented as of this encounter Care Teams Resident Services Supervisor Relationship Specialty Start Date End Date Marcelle Hernandez MD [address] [facility] [address] [place] [address] PCP - General Pediatrics 12/27/15 09/30/24 documented as of this encounter
--- OUTSIDE RECORDS SUMMARY | 2024-12-03 16:22 | XMS_ITS ---
Author Organization [facility] ([address]) Address [address] [place] [address] Care Team Providers Care Submarine Worker Name Role Phone Liliana Riley Primary Care Provider UnavailSharee Carlos Unavailable [phone] ZZ-Migration, Provider Unavailable Unavailab le Allergies Allergen (clinical drug ingredient) Drug/Non Drug Allergy documented on EMR Reaction Allergy Type Onset Date Status CHLOR-TRIMETON (uncoded) itching Allergy Active DAYQUIL COUGH (uncoded) hives Allergy Active Azithromycin itching Drug Allergy Acti ve ibuprofen Ibuprofen increase in headaches Drug Allergy Active REASON FOR VISIT [facility] To [facility] Conversion Encounter Medications Medication SIG (Take, [...] review and pick correct strength-formulat ion from [employer] options. If intended option is not shown, discontinue and re-order from Quick Search* Active lamoTRIgine 100 MG 1 tab(s) orally 2 times a day Active Corlanor 5 MG 1 tab(s) orally 2 times a day (with meals) Active Encounters Encounter Location Date Provider Diagnosis [address] [address] 12/01/2023 Provider ADAMA-Phyllis Mild intermittent asthma, uncomplicated [...] Notes * Holden MACKJarvisOB:2000 (24 yo F)Acc No.[id number]:12/01/2023 Patient: Violet KELLY Provider: Karma Ferguson :2000 A ge:23 Y S ex:Female Date:12/01/2023 Address:[address] [place] [address] Pcp:Liliana Riley Subjective: * Chief Complaints: * [...] * Electronic signature of Anh GALAN-Migration on 12/03/2024 at 04:22 PM CDT Sign off status: Pending * Provider: Karma torres Migration Date: 12/01/2023 Generated for Marti bermeo/Mao/Nahid on: 12/03/2024 04:22 PM CDT
--- OUTSIDE RECORDS SUMMARY | 2024-12-03 16:22 | XMS_ITS | Encounter Summary ---
Author Organization [facility] Address [address] [facility] [place] [address] Care Team Providers Care Brand Sales Manager Name Role Phone Unavailable Primary Care Provider Unavailabl e Encounter Details Date Type Department Care Team (Late st Contact Info) Description 11/28/2024 Orders Only [facility] MATERNAL/ EVALUATION UNIT [address] [facility] [place] [address] [place] Ramirez, LailaD Social History Tobacco Use Types Packs/Day Years [...] care, and heating? Not very hard 11/24/2024 [facility] [place] of Occupat ional Health - Occupational Stress [...] things needed for daily living? No 11/24/2024 [place] Depression Scale Answer Date Recorded [place] Depression Scale Total 2 11/24/2024 The thought [...] any time in the past [address] [facility], were you homeless or living in a alf (including now)? 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 [place] [address] 12/08/2024 11:30 AM CDT Appointment [facility] MATERNAL/ EVALUATION UNIT [address] [place] [address] 02/09/2025 10:30 AM CDT Appointment [facility] MATERNAL/ EVALUATION UNIT [address] [place] [address] documented as of this encounter Visit Diagnoses Not on filedocumented in this encounter
--- OUTSIDE RECORDS SUMMARY | 2024-12-03 16:22 | XMS_ITS | Patient Health Record ---
Author Organization [facility] [employer] Address [address] [place] [address] Care Team Providers Care Business Insight And Analytics Manager Name Role Phone Maryanne COLLADO, Hernan Primary Care Provider Un available Tian Frazier Unavailable [phone] Allergies Allergen (clinical drug ingredient) Drug/Non Drug [...] MG/DOSE) 2 MG/3ML Subcutaneous *Pick strength-form from [employer] for eRX* 11/07/2023 Active Farxiga 10 MG Oral 11/07/2023 Activ e ProAir HFA 108 (90 Base) MCG/ACT Inhalation 11/07/2023 Active lamoTRIgine 100 MG 1 tablet Oral twice a day for 90 days Active Immunizations Vaccine Route Administration Date Status Comme nts Jaguar Covid-19 Vaccine Unknown 09/22/2020 Administere d Pfizer Biontech Covid-19 Vac cine 2nd dose Unknown 06/24/2021 [...] Risk Notes Problem Mild recurrent major depression (20302598) Major depressive disorder, recurrent, mild (F33.0) 11/07/19 Active confirmed Problem Generalized anxiety disorder (67404927) Generalized anxiety disorder (F41.1) 11/07/19 Active confirmed Problem Posttraumatic stress disorder (95025379) Post-traumatic stress disorder, chronic (F43.12) 11/07/19 Active confirmed Problem Insomnia disorder related to another mental disorder (87510237) Insomnia due to other mental disorder (F51.05) 11/07/19 Active confirmed Problem Intermittent explosive disorder (07598106) Intermittent explosive disorder (F63.81) 11/07/19 Active confirmed Problem Attention deficit hyperactivity disorder, combined type (57999192) Attention-deficit hyperactivity disorder, combined type (F90.2) 11/07/19 Active confirmed Vital Signs Heart Rate 94 /min 09/02/2024 Height-cm 165.10 cm 09/02/2024 Blood pressure diastolic 68 mm Hg 09/02/2024 Weight-kg 77.57 kg 09/02/2024 Height 65.00 in 09/02/2024 Blood pressure systolic 97 mm Hg 09/02/2024 Weight 171 lbs 09/02/2024 BMI 28.45 kg/m2 09/02/2024 Encounters Encounter Location Date Provider Diagnosis [facility] [employer] [address] [address] 01/04/2024 Tian Frazier Intermittent explosi ve disorder F63.81 ; Post-traumatic stress disorder, chronic F43.12 ; Attention-deficit hyperactivity disorder, combined type F90.2 ; Generalized anxiety disorder F41.1 ; Insomnia due to other mental disorder F51.05 and Major depressive disorder, recurrent, mild F33.[address] [facility] [employer] [address] [address] 04/07/2024 Tian Frazier Intermittent explosi ve disorder F63.81 ; Post-traumatic stress disorder, chronic F43.12 ; Attention-deficit hyperactivity disorder, combined type F90.2 ; Generalized anxiety disorder F41.1 ; Insomnia due to other mental disorder F51.05 ; Major depressive disorder, recurrent, mild F33.0 and Marijuana use F12.90 [facility] [employer] [facility] [address] [place] [address] 07/07/2024 Tian Frazier [facility] [employer] [facility] [address] [place] [address] 09/02/2024 Tian Frazier Generalized anxiety disorder F41.1 ; Major depressive disorder, recurrent, mild F33.0 ; Post-traumatic stress disorder, chronic F43.12 ; Attention-deficit hyperactivity disorder, combined type F90.2 ; Intermittent explosive disorder F63.81 ; Insomnia due to other mental disorder F51.05 ; Encounter for screening for depression Z13.31 ; Encounter for screening for cardiovascular disorders Z13.6 and Marijuana use F12.90 Assessments Encounter Date Diagnosis (ICD Code) Assessment Notes Treatment Notes Treatment Clinical Notes Section Notes 04/07/2024 Intermittent explosive disorder (ICD-10 - F63.81) [...] 09/02/2024 Generalized anxiety disorder (ICD-10 - F41.1) 01/04/2024 Intermittent explosive disorder (ICD-10 - F63.81) [...] well-being and progress in other areas. 6. materials management supervisor: - Patient discusses difficulties with managing money and spending on others. Plan: - Encourage the patient to create a budget and prioritize spending on necessities, such as purchasing new bras as needed. - Revisit the topic at the next appointment if necessary. 09/02/2024 Major depressive disorder, recurrent, mild (ICD-10 - F33.0) stable 04/07/2024 Post-traumatic stress disorder, chronic (ICD-10 - [...] or sooner if any concerns arise 01/04/2024 Post-traumatic stress disorder, chronic (ICD-10 - [...] well-being and progress in other areas. 6. materials management supervisor: - Patient discusses difficulties with managing money and spending on others. Plan: - Encourage the patient to create a budget and prioritize spending on necessities, such as purchasing new bras as needed. - Revisit the topic at the next appointment if necessary. 04/07/2024 Attention-deficit hyperactivity disorder, combined type (ICD-10 [...] or sooner if any concerns arise 09/02/2024 Post-traumatic stress disorder, chronic (ICD-10 - F43.12) 01/04/2024 Attention-deficit hyperactivity disorder, combined type (ICD-10 [...] well-being and progress in other areas. 6. materials management supervisor: - Patient discusses difficulties with managing money and spending on others. Plan: - Encourage the patient to create a budget and prioritize spending on necessities, such as purchasing new bras as needed. - Revisit the topic at the next appointment if necessary. 01/04/2024 Generalized anxiety disorder (ICD-10 - F41.1) [...] well-being and progress in other areas. 6. materials management supervisor: - Patient discusses difficulties with managing money [...] disorder, combined type (ICD-10 - F90.2) 01/04/2024 Insomnia due to other mental disorder [...] well-being and progress in other areas. 6. materials management supervisor: - Patient discusses difficulties with managing money and spending on others. Plan: - Encourage the patient to create a budget and prioritize spending on necessities, such as purchasing new bras as needed. - Revisit the topic at the next appointment if necessary. 09/02/2024 Intermittent explosive disorder (ICD-10 - F63.81) 04/07/2024 Insomnia due to other mental disorder [...] or sooner if any concerns arise 09/02/2024 Insomnia due to other mental disorder (ICD-10 - F51.05) 01/04/2024 Major depressive disorder, recurrent, mild (ICD-10 [...] well-being and progress in other areas. 6. materials management supervisor: - Patient discusses difficulties with managing money and spending on others. Plan: - Encourage the patient to create a budget and prioritize spending on necessities, such as purchasing new bras as needed. - Revisit the topic at the next appointment if necessary. 04/07/2024 Major depressive disorder, recurrent, mild (ICD-10 [...] for screening for depression (ICD-10 - Z13.31) 04/07/2024 Marijuana use (ICD-10 - F12.90) states [...] concerns arise 09/02/2024 Encounter for screening for cardiovascular disorders (ICD-10 - Z13.6) 09/02/2024 Marijuana use (ICD-10 - F12.90) states helps with pain and mood THC/CBD may affect the metabolism of Lamotrigine by increasing its drug effect by the UGT2B7 Substrateby increasing or decreasing its drug effect by the CY Substrateby increasing its drug effect by the CY Substrate 09/02/2024 Bryce Violet Mack, female patient with history of depression [...] Treatment Next Appt Details Provider Name:Tian tapia, 12/10/2024 04:30:00 PM, [address], [address], [place], [address], Insurance Providers Payer Name Payer Address Payer Phone Subscriber Number Group Number Insured Name Patient Relationship to Insured Coverage Start Date Coverage End Date [place] [address] [place] [id number] VIOLET ZHENG Self - patient is the insured [employer] Medicare Supplement [address] [employer] [place] [address] [id number] PLAN G VIOLET ZHENG Self - patient is the insured Medical (General) History Medical History History ICD Code Problems: Attention deficit hyperactivit y disorder, combined type Chronic post-traumatic stress disorder Generalized anxiety disorder Insomnia disorder related to another men aamnda disorder Intermittent explosive disorder Mild recurrent major depression Mixed hyperlipidemia Severe recurrent major depression withou t psychotic features Type 2 diabetes mellitus well controlled , Surgical History Surgery Date(Month/Year) Correction of scoliosis (777649934) 12/16
--- OUTSIDE RECORDS SUMMARY | 2024-12-03 16:22 | XMS_ITS | Clinical Summary ---
Author Organization [facility]ila [facility] Address [address] [place] [address] Care Team Providers Care Manager Hardware Name Role Phone Hernan Madden MD Primary [...] Encounters Date Type Department Care Team Description 11/11/2024 External Device Data ST[facility] ABSTRACTION Provider, Abstract 11/06/2024 External Device Data [facility] ABSTRACTION Provider, Abstract 11/05/2024 External Device Data [facility] ABSTRACTION Provider, Abstract 11/04/2024 External Device Data [facility] ABSTRACTION Provider, Abstract 10/16/2024 10:15 AM CDT Office Visit [facility] Oncology and Hematology - [place] [address] [place] [address] Mike Llanes MD Leukocytosis, unspecified type (Primary Dx) 10/16/2024 Orders Only [facility] Oncology and Hematology - [place] [address] [place] [address] Mike Llanes MD 09/30/2024 External Device Data [...] on file Legal Sex Female 1:45 PM BLEACH ANALYST Gender Identity Not on file Sexual Orientation [...] 10:32 AM CDT Height 167.6 cm (5' 6) 06/12/2024 11:49 AM BLEACH ANALYST Body Mass Index 27.18 06/12/2024 11:49 AM BLEACH ANALYST Plan of Treatment Upcoming Encounters Date Type Department Care Team (Late st Contact Info) Description 04/23/2025 11:00 AM BLEACH ANALYST Office Visit [facility] Oncology and Hematology - [place] [address] [facility] [address] [place] [address] Mike Llanes MD [address] [facility] [address] [place] [address] Health Maintenance Due Date Last [...] Months Insurance MEDICARE PART A AND B [facility] Care Teams Manager Hardware Relationship Specialty Start Date End Date Hernan Madden MD [address] [place] [address] [address] [place] [phone] PCP - General Internal Medicine 06/27/24
--- OUTSIDE RECORDS SUMMARY | 2024-12-03 16:22 | XMS_ITS | Encounter Summary ---
Author Organization [facility] Address [address] [place] [address] Care Team Providers Care Chargeback Specialist Name Role Phone Marcelle Hernandez MD Primary Care Provider [phone] Encounter Details Date Type Department Care Team (Late st Contact Info) Description 09/17/2019 Telephone [facility] Pediatrics - Diabetes [address] [address] Camron Brandon, AIRCRAFT MECHANIC ARMAMENT-COIL BUILDER [address] [place] [address] Social History Tobacco Use Types Packs/Day Years Used Date Smoking Tobacco: Never Smokeless Tobacco: Never Alcohol Use Standard Drinks/Week Comments No 0 (1 standard drink = 0.6 oz pur e alcohol) Comments No Sex and Gender Information Value Date Recorded Sex Assigned at Not on file Legal Sex Female 5:45 AM 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 Answer Date of Assessment Author No 02/03/2016 9:40 AM EMILYT Esperanza Gordon RN * Is person blind or have serious difficulty seeing? Answer Date of Assessment Author No 02/03/2016 9:40 AM Esperanza Villa RN * Does person have serious difficulty walking/climbing stairs? Answer Date of Assessment Author No 02/03/2016 9:40 AM Esperanza Villa RN * Does person have difficulty dressing/bathing? [...] Info) Description 12/08/2024 11:00 AM CDT Appointment [facility] MATERNAL/ EVALUATION UNIT [facility] [address] [place] [address] 12/08/2024 11:30 AM CDT Appointment [facility] MATERNAL/ EVALUATION UNIT [facility] [address] [place] [address] 02/09/2025 10:30 AM CDT Appointment [facility] MATERNAL/ EVALUATION UNIT [address] [place] [address] Ave[address] [place] [address] documented as of this encounter Visit Diagnoses Not on filedocumented in this encounter Additional Health Concerns Infection Onset Date Last Indicated Resolved Time COVID-19 Under Investigation 12/22/2019 12/23/2019 12/24/2019 2:58 PM CDT documented as of this encounter Care Teams Chargeback Specialist Relationship Specialty Start Date End Date Marcelle Hernandez MD [address] [facility] [address] [place] [address] PCP - General Pediatrics 12/27/15 09/30/24 documented as of this encounter
--- OUTSIDE RECORDS SUMMARY | 2024-12-03 16:22 | XMS_ITS | Encounter Summary ---
Author Organization [facility] Address [address] [place] [address] Care Team Providers Care Answering Service Operator Name Role Phone Unavailable Primary Care Provider Unavailabl e Encounter Details Date Type Department Care Team (Late st Contact Info) Description 11/27/2024 Results Follow-Up [facility]/ EVALUATION UNIT [address] [place] [address] Ck Bansal MD [address] [place] [address] Social History Tobacco Use Types Packs/Day Years [...] care, and heating? Not very hard 11/24/2024 [facility] [facility] Occup[facility] ional [facility] - Occupational Stress [...] things needed for daily living? No 11/24/2024 [place] Depression Scale Answer Date Recorded [place] Depression Scale Total 2 11/24/2024 The thought [...] any time in the past 12 m [facility], were you homeless or living in a long-term (including now)? No 11/24/2024 Estimated Date of Delivery Comme nts Yes 06/29/2025 Based on Ultraso und Sex and Gender Information Value Date Recorded Sex Assigned at Not on file Legal Sex Female 5:45 AM FINISH SPECIALIST Gender Identity Not on file Sexual Orientation Not on file documented as of this encounter Functional Status * Is person deaf or have serious hearing difficulty? Answer Date of Assessment Author No 12/26/2019 12:06 PM Sridevi Kraft RN * Is person blind or have serious difficulty seeing? Answer Date of Assessment Author No 12/26/2019 12:06 PM EMILYT Sridevi Rosales RN * Does person have serious difficulty walking/climbing stairs? Answer Date of Assessment Author No 12/26/2019 12:06 PM EMILYT Sridevi Rosales RN * Does person have difficulty dressing/bathing? [...] Info) Description 12/08/2024 11:00 AM CDT Appointment [facility]/ EVALUATION UNIT [address] [place] [address] 12/08/2024 11:30 AM CDT Appointment [facility]/ EVALUATION UNIT [address] [place] [address] 02/09/2025 10:30 AM CDT Appointment [facility]/ EVALUATION UNIT [address] [place] [address] documented as of this encounter Visit Diagnoses Not on filedocumented in this encounter
--- OUTSIDE RECORDS SUMMARY | 2024-12-03 16:23 | XMS_ITS | Data Portability ---
Author Organization [place] [facility], Main Office Address [address] [place] [address] Care Team Providers Care Drum Reel Cutter Name Role Phone RALF MARI Primary Care Provider [phone] DAGMARRALF VILLA Referring Provider [phone] GRAY ZENG Coin Teller SHALONDA PHILIP Meat Cutting Teacher GIO FRIED Clamp Carrier Operator Assessment Encounter Date Assessment Date Assessment LastModified by Organization Details LastModified Time 12/26/2023 12/26/2023 Assessment: Cough Dyspnea Plan: The following were reviewed and explained to the patient: primary care/referral note Chest 1 view 06/28/22 no acute disease Chest 2 views 12/07/23 no acute disease 2-D echocardiogram 10/26/23 EF 65% Cough/Dyspnea workup will be done as follows: [facility] Serum IgE Serum total IgG, IgG1, IgG2, IgG3, IgG4 [id number] n phenotype and level TB stimulated gamma [...] None recorded. Lab lipid panel, serum [address] (Lab), [address] [place], [address], 5 14:40:10 CBC w/ auto diff 2023 [facility] (Lab), [address] [place], [address], 4 15:52:23 CMP, serum or plasma 2023 [facility] (Lab), [address] [place], [address], 4 16:38:13 TSH, serum or plasma [address] (Lab), [address] [place], [address], 5 14:40:10 vitamin D, 25-hydroxy, total, serum [address] (Lab), [address] [place], [address], 5 14:40:09 microalbumi n, urine [address] (Lab), [address] [place], [address], 5 14:40:09 HbA1c (hemoglobin A1c), blood [address] (Lab), [address] [place], [address], 5 14:40:09 vitamin B12 + folate, serum or blood 2023 024 [email or web address] [address] [place] [address] (Lab), [address] [place], [address], 5 14:40:10 lipid panel, serum 2023 024 [facility] (Lab), [address] [place], [address], 4 18:28:48 CBC w/ auto diff 2023 024 [facility] (Lab), [address] [place], [address], 4 19:17:17 CMP, serum or plasma 2023 024 [facility] (Lab), [address] [place], [address], 4 18:28:56 TSH, serum or plasma 2023 024 [facility] (Lab), [address] [place], [address], 4 19:04:13 vitamin D, 25-hydroxy, total, serum [address] (Lab), [address] [place], [address], 5 12:34:40 microalbumi n, urine 2023 024 [facility] (Lab), [address] [place], [address], 4 18:27:48 HbA1c (hemoglobin A1c), blood [address] (Lab), [address] [place], [address], 5 12:34:40 vitamin B12 + folate, serum or blood [address] (Lab), [address] [place], [address], 5 12:34:40 lipid panel, serum 2023 024 [facility] (Lab), [address] [place], [address], 4 18:36:55 CBC w/ auto diff 2023 024 [facility] (Lab), [address] [place], [address], 4 15:10:56 CMP, serum or plasma 2023 024 [facility] (Lab), [address] [place], [address], 4 18:37:20 TSH, serum or plasma 2023 024 [facility] (Lab), [address] [place], [address], 4 19:06:07 vitamin D, 25-hydroxy, total, serum [address] (Lab), [address] [place], [address], 4 14:29:36 microalbumi n, urine 2023 024 [facility] (Lab), [address] [place], [address], 4 17:13:34 HbA1c (hemoglobin A1c), blood [address] (Lab), [address] [place], [address], 4 14:29:35 vitamin B12 + folate, serum or blood 2023 024 [email or web address] 6 [facility] (Lab), [address] [place], [address], 4 14:29:36 alpha-1-ant itrypsin (aat) phenotype, serum 2023 [facility]24 [email or web address] [address] [place] [address] (Lab), [address] [place], [address], 4 12:41:51 BNP (B-type natriuretic peptide), serum or plasma 2023 024 EUN [facility] (Lab), [address] [place], [address], 4 14:57:56 ige, total, serum 2023 024 [email or web address] 82 [facility] (Lab), [address] [place], [address], 4 12:41:51 tb (M tuberculosi s), ifn-gamma marichuy, blood 2023 024 [email or web address] 82 [facility] (Lab), [address] [place], [address], 4 12:41:52 eosinophil count, manual, blood (OBS) 2023 [email or web address] [place] [address] (Lab), [address] [place], [address], 4 12:41:52 igg subclasses 1+2+3+4, serum [email or web address] [place] [address] (Lab), [address] [place], [address], 4 12:41:52 respiratory allergen panel - [facility] a [email or web address] (Lab), [address] [place], [address], 4 12:41:52 respiratory allergen panel - [facility] b [email or web address] (Lab), [address] [place], [address], 4 12:41:52 lipid panel, serum 2023 024 [facility] (Lab), [address] [place], [address], 4 12:25:43 CMP, serum or plasma 2023 024 [facility] (Lab), [address] [place], [address], 4 12:25:54 CBC w/ auto diff 2023 024 [facility] (Lab), [address] [place], [address], 4 12:15:24 TSH + free T4, serum 2023 [email or web address] [place] [address] (Lab), [address] [place], [address], 4 09:15:57 vitamin D, 25-hydroxy, total, serum [address]23 [email or web address] [place] [address] (Lab), [address] [place], [address], 4 09:15:57 microalbumi n, urine 2023 024 EUN [facility] (Lab), [address] [place], [address], 4 12:25:28 HbA1c (hemoglobin A1c), blood [address] (Lab), [address] [place], [address], 4 09:15:57 vitamin B12 + folate, serum or blood [address] (Lab), [address] [place], [address], 4 09:15:58 Referral obstetricia n and gynecologis t referral - Please call patient to schedule. 2023 [facility]24 [email or web address] Cristina Stover MD, [address] [facility] [address], [place], [address], 5 10:31:[address] referral 2023 024 Gray Zeng MD, [address] [place], [address], 4 12:11:13 cardiologis t referral 2023 024 [email or web address] [place], [address], [place], [address], 4 17:39:44 orthopedic surgeon referral - Please call patient to schedule. 2023 024 [email or web address] 6 Violet Mccloud GARBAGE PERSON, [address] , [place], [address], 5 10:31:38 gynecologis t referral - Please call patient to schedule. 2023 024 [email or web address] 6 Cristina Stover MD, [address] [facility] [address], [place], [address], 5 10:31:38 hematologis t referral - Please call patient to schedule. 2023 024 EUN Llanes MD, [address], [place], [address], 5 13:51:11 nitroglycerin nitrator operator batch referral - Please call patient to schedule. 2023 024 [email or web address] 6 Castillo Huynh DPM, [address] [facility] [address], [place], [address], 5 10:31:37 endocrinolo gy referral 2023 024 [email or web address] [place], [address] [facility], [place], [address], 4 12:23:02 obstetricia n and gynecologis t referral 2023 024 [email or web address] Cristina Stover MD, [address] [facility] [address], [place], [address], 4 09:43:20 orthopedic surgeon referral 2023 024 [email or web address] Dru Graham MD, [address] [facility], [place], [address], 4 09:43:[address] referral 2023 024 [email or web address] Gray Zeng MD, [address] [facility] [place], [address], 4 09:43:22 gynecologis t referral 2023 024 [email or web address] Cristina Stover MD, [address] [facility] [address], [place], [address], 4 09:43:22 cardiologis t referral 2023 024 [place], [address], [place], [address], 4 09:43:21 nitroglycerin nitrator operator batch referral 2023 024 [email or web address] Castillo Huynh DPM, [address], [place], [address], 4 09:43:19 endocrinolo gy referral 2023 024 [email or web address] Ace Mercado MD, [address], [place], [address], 4 09:43:20 obstetricia n and gynecologis t referral 2023 024 [email or web address] 6 Cristina Stover MD, [address], [place], [address], 5 12:46:11 orthopedic surgeon referral 2023 024 [email or web address] 6 Dru Graham MD, [address] [facility], [place], [address], 5 08:28:37 cardiologis t referral 2023 024 [email or web address] 6 [place], [address] [address], [place], [address], 5 12:46:12 nitroglycerin nitrator operator batch referral 2023 024 [email or web address] 6 Castillo Huynh DPM, [address], [place], [address], 5 08:45:29 endocrinolo gy referral 2023 024 [email or web address] 6 Ace Mercado MD, [address], [place], [address], 5 09:29:49 obstetricia n and gynecologis t referral 2023 024 [email or web address] 6 Cristina Stover MD, [address], [place], [address], 4 08:37:30 cardiologis t referral 2023 024 [email or web address] 6 [place], [address], [address], [place], [address], 4 08:37:31 nitroglycerin nitrator operator batch referral 2023 024 [email or web address] 6 Castillo Huynh DPM, [address] [facility], [place], [address], 4 08:37:12 endocrinolo gy referral 2023 024 [email or web address] 6 Ace Mercado MD, [address], [place], [address], 5 09:20:06 Procedures None recorded. Surgeries None recorded. Imaging None recorded. Medication Orders nystatin 100,000 unit/gram topical cream [email or web address] [place] [address] Pharm[address], [address] [place] [address], [address], 4 18:21:13 albuterol sulfate HFA 90 mcg/actuati on aerosol inhaler 2023 024 [facility], [address] [place] [address], [address], 4 11:17:13 Patient TargetsNo targets recorded. Patient Instructions Encounter Date Encounter Id Patient Instructions Last Modified By Organization Details Last Modified Time 09/25/2023 [id number] diabetic eye exam* [email or web address] Not avail able 03/31/2024 10:36:46 12/26/2023 [id number] complete PFT w/ post bronchodilator spirometry* EUN Not available 02/11/2024 10:47:23 01/15/2024 [id number] diabetic eye exam* Not avail able 07/14/2024 12:45:51 02/21/2024 [id number] diabetic eye exam* [email or web address] Not avai lable 08/19/2024 08:45:46 04/23/2024 [id number] diabetic eye exam* [email or web address] Not avai lable 10/20/2024 08:40:02 Reason for Referral Plodder Operator Referral for Type 2 diabetes mellitus without complication Referring Physician: Hernan Madden Internal Medicine, Encounter Date: 09/25/2023 Endocrinology Referral for T ype 2 diabetes mellitus without complication Referring Physician: Devorah Gomes, Encounter Date: 09/25/2023 [facility] Referral for Gynecologic examination Referring Physician: Devorah Gomes Medicine, Encounter Date: 09/25/2023 Clamp Carrier Operator Referral for Ta chycardia Referring Physician: Devorah Gomes, Encounter Date: 09/25/2023 Plodder Operator Referral for Type 2 diabetes mellitus without complication Referring Physician: Devorah Gomes, Encounter Date: 01/15/2024 Endocrinology Referral for T ype 2 diabetes mellitus without complication Referring Physician: Devorah Gomes, Encounter Date: 01/15/2024 [facility] Referral for Gynecologic examination Referring Physician: Devorah Gomes, Encounter Date: 01/15/2024 Clamp Carrier Operator Referral for Ta chycardia Referring Physician: Devorah Gomes, Encounter Date: 01/15/2024 Orthopedic Surgeon Referral for Pain of bilateral hip joints Referring Physician: Devorah Gomes Medicine, Encounter Date: 01/15/2024 Plodder Operator Referral for Type 2 diabetes mellitus without complication Referring Physician: Devorah Gomes Medicine, Encounter Date: 02/21/2024 Endocrinology Referral for T ype 2 diabetes mellitus without complication Referring Physician: Hernan Madden Internal Medicine, Encounter Date: 02/21/2024 [facility] Referral for Gynecologic examination Referring Physician: Devorah Gomes Medicine, Encounter Date: 02/21/2024 Clamp Carrier Operator Referral for Ta chycardia Referring Physician: Devorah Gomes, Encounter Date: 02/21/2024 Orthopedic Surgeon Referral for Pain of bilateral hip joints Referring Physician: Devorah Gomes Medicine, Encounter Date: 02/21/2024 Coin Teller Referral for D yspnea on exertion Referring Physician: Devorah Gomes Medicine, Encounter Date: 02/21/2024 Rags Laborer Referral for Hy pertrophy of vulva Referring Physician: Devorah Gomes, Encounter Date: 02/21/2024 Plodder Operator Referral for Type 2 diabetes mellitus without complication Please call patient to schedule. Referring Physician: Devorah Gomes Medicine, Encounter Date: 04/23/2024 Endocrinology Referral for T ype 2 diabetes mellitus without complication Referring Physician: Devorah Gomes Medicine, Encounter Date: 04/23/2024 [facility] Referral for Gynecologic examination Please call patient to schedule. Referring Physician: Devorah Gomes, Encounter Date: 04/23/2024 Clamp Carrier Operator Referral for Ta chycardia Referring Physician: Devorah Gomes Medicine, Encounter Date: 04/23/2024 Orthopedic Surgeon Referral for Pain of bilateral hip joints Please call patient to schedule. Referring Physician: Hernan Madden Internal Medicine, Encounter Date: 04/23/2024 Coin Teller Referral for D yspnea on exertion Referring Physician: Hernan Madden Internal Medicine, Encounter Date: 04/23/2024 Rags Laborer Referral for Hy pertrophy of vulva Please [...] 10.0 x10'3 /uL 4.2-10 .8 Not Available [facility] (Lab) [address] [place], [address], 09/28/2023 12:15:24 09/28/19 24 09/28/2023 CBC/C OMPLE TE BLD COUNT W/DIF F red blood cells 4.50 x10'6 /uL 3.80-5 .20 Not Available [facility] (Lab) [address] [place], [address], 09/28/2023 12:15:24 09/28/19 24 09/28/2023 CBC/C OMPLE TE BLD COUNT W/DIF F hemoglobin 12.9 g/dL 12.0-1 5.6 Not Available [facility] (Lab) [address] [place], [address], 09/28/2023 12:15:24 09/28/19 24 09/28/2023 CBC/C OMPLE TE BLD COUNT W/DIF F hematocrit 40.2 % 35.7-4 5.7 Not Available [facility] (Lab) [address] [place], [address], 09/28/2023 12:15:24 09/28/19 24 09/28/2023 CBC/C OMPLE TE BLD COUNT W/DIF F mean red cell volume 89.3 fL 82.0-9 9.0 Not Available [facility] (Lab) [address] [place], [address], 09/28/2023 12:15:24 09/28/19 24 09/28/2023 CBC/C OMPLE TE BLD COUNT W/DIF F mean red cell hemoglobin 28.7 pg 27.0-3 3.0 Not Available [facility] (Lab) [address] [place], [address], 09/28/2023 12:15:24 09/28/19 24 09/28/2023 CBC/C OMPLE TE BLD COUNT W/DIF F mean RBC HGB concentratio n 32.1 g/dL 31.0-3 6.0 Not Available [facility] (Lab) [address] [place], [address], 09/28/2023 12:15:24 09/28/19 24 09/28/2023 CBC/C OMPLE TE BLD COUNT W/DIF F red cell distribution width 12.6 % 11.8-1 5.5 Not Available [facility] (Lab) [address] [place], [address], 09/28/2023 12:15:24 09/28/19 24 09/28/2023 CBC/C OMPLE TE BLD COUNT W/DIF F platelets 282 x10'3 /uL 150-40 0 Not Available [facility] (Lab) [address] [place], [address], 09/28/2023 12:15:24 09/28/19 24 09/28/2023 CBC/C OMPLE TE BLD COUNT W/DIF F mean platelet volume 10.6 fL 9.0-12 .4 Not Available [facility] (Lab) [address] [place], [address], 09/28/2023 12:15:24 09/28/19 24 09/28/2023 CBC/C OMPLE TE BLD COUNT W/DIF F neutrophils 54.7 % 39.0-7 2.0 Not Available [facility] (Lab) [address] [place], [address], 09/28/2023 12:15:24 09/28/1909/28/2023 CBC/C OMPLE TE BLD COUNT W/DIF F lymphocytes 33.0 % 16.0-4 7.0 Not Available [facility] (Lab) [address] [place], [address], 09/28/2023 12:15:24 09/28/19 24 09/28/2023 CBC/C OMPLE TE BLD COUNT W/DIF F monocytes 9.2 % 5.0-12 .0 Not Available [facility] (Lab) [address] [place], [address], 09/28/2023 12:15:24 09/28/19 24 09/28/2023 CBC/C OMPLE TE BLD COUNT W/DIF F eosinophils 1.3 % 1.0-7. 0 Not Available [facility] (Lab) [address] [place], [address], 09/28/2023 12:15:24 09/28/1909/28/2023 CBC/C OMPLE TE BLD COUNT W/DIF F basophils 0.7 % 0.0-2. 0 Not Available [facility] (Lab) [address] [place], [address], 09/28/2023 12:15:24 09/28/19 24 09/28/2023 CBC/C OMPLE TE BLD COUNT W/DIF F immature granulocytes 1.1 % 0.00-0 .50 high Not Available [facility] (Lab) [address] [place], [address], 09/28/2023 12:15:24 09/28/19 24 09/28/2023 CBC/C OMPLE TE BLD COUNT W/DIF F neutrophils, absolute count 5.44 x10'3 /uL 1.5-8. 0 Not Available [facility] (Lab) [address] [place], [address], 09/28/2023 12:15:24 09/28/19 24 09/28/2023 CBC/C OMPLE TE BLD COUNT W/DIF F lymphocytes, absolute count 3.29 x10'3 /uL 1.07-3 .43 Not Available [facility] (Lab) [address] [place], [address], 09/28/2023 12:15:24 09/28/19 24 09/28/2023 CBC/C OMPLE TE BLD COUNT W/DIF F monocytes, absolute count 0.92 x10'3 /uL 0.29-0 .99 Not Available [facility] (Lab) [address] [place], [address], 09/28/2023 12:15:24 09/28/1909/28/2023 CBC/C OMPLE TE BLD COUNT W/DIF F eosinophils, absolute count 0.13 x10'3 /uL 0.02-0 .53 Not Available [facility] (Lab) [address] [place], [address], 09/28/2023 12:15:24 09/28/19 24 09/28/2023 CBC/C OMPLE TE BLD COUNT W/DIF F basophils, absolute count 0.07 x10'3 /uL 0.01-0 .08 Not Available [facility] (Lab) [address] [place], [address], 09/28/2023 12:15:24 09/28/19 24 09/28/2023 CBC/C OMPLE TE BLD COUNT W/DIF F immature granulocytes ,absolute 0.11 x10'3 /uL 0.00-0 .05 high Not Available [facility] (Lab) [address] [place], [address], 09/28/2023 12:15:24 09/28/19 24 09/28/2023 CBC/C OMPLE TE BLD COUNT W/DIF F nucleated red blood cells 0.0 % -0 Not Available [facility] (Lab) [address] [place], [address], 09/28/2023 12:15:24 09/28/19 24 09/28/2023 CBC/C OMPLE TE BLD COUNT W/DIF F NRBC# 0.00 x10'3 /uL Not Available [facility] (Lab) [address] [place], [address], 09/28/2023 12:15:24 09/28/1909/28/2023 MICRO ALBUM IN RANDO M URINE microalbumin , urine 7.0 mg/L 0.0-16 .6 Not Available [facility] (Lab) [address] [place], [address], 09/28/2023 12:25:28 09/28/1909/28/2023 LIPID PANEL cholesterol 191 mg/dL 140-19 9 [facility] NSUS RECOM MENDA TION FOR YANELY STERO L: ADULT CHILD LOW RISK: <200 <170 BORDE RLINE : <200- 239 ----- HIGH RISK: >240 >200 Not Available [facility] (Lab) [address] [place], [address], 09/28/2023 12:25:43 09/28/1909/28/2023 LIPID PANEL triglyceride s 168 mg/dL 0-150 high NIH [facility] NSUS REPOR T RECOM MENDA TION FOR TRIGL YCERI YAZMIN: ADULT CHILD LOW RISK: <150 ----- BODER LINE: 150-1 99 ----- HIGH RISK: >200 ----- Not Available [facility] (Lab) [address] [place], [address], 09/28/2023 12:25:43 09/28/19 24 09/28/2023 LIPID PANEL HDL cholesterol 48 mg/dL 40- Not Available [facility] (Lab) [address] [place], [address], 09/28/2023 12:25:43 09/28/19 24 09/28/2023 LIPID PANEL [...] WILL NOT BE REPOR VIKTOR. Not Available [facility] (Lab) [address] [place], [address], 09/28/2023 12:25:43 09/28/19 24 09/28/2023 COMP MET PANEL /LIVE R sodium 136 mmol/ L 137-14 5 low Not Available [facility] (Lab) [address] [place], [address], 09/28/2023 12:25:54 09/28/19 24 09/28/2023 COMP MET PANEL /LIVE R potassium 4.1 mmol/ L 3.5-5. 1 Not Available [facility] (Lab) [address] [place], [address], 09/28/2023 12:25:54 09/28/19 24 09/28/2023 COMP MET PANEL /LIVE R chloride 105 mmol/ L 98-107 Not Available [facility] (Lab) [address] [place], [address], 09/28/2023 12:25:54 09/28/19 24 09/28/2023 COMP MET PANEL /LIVE R carbon dioxide 25 mmol/ L 22-30 Not Available [facility] (Lab) [address] [place], [address], 09/28/2023 12:25:54 09/28/19 24 09/28/2023 COMP MET PANEL /LIVE R anion gap 10.1 mmol/ L 14-22 low Not Available [facility] (Lab) [address] [place], [address], 09/28/2023 12:25:54 09/28/19 24 09/28/2023 COMP MET PANEL /LIVE R glucose 153 mg/dL 70-99 high Not Available [facility] (Lab) [address] [place], [address], 09/28/2023 12:25:54 09/28/19 24 09/28/2023 COMP MET PANEL /LIVE R BUN 14 mg/dL 8-19 Not Available [facility] (Lab) [address] [place], [address], 09/28/2023 12:25:54 09/28/19 24 09/28/2023 COMP MET PANEL /LIVE R creatinine 0.53 mg/dL 0.66-1 .25 low Not Available [facility] (Lab) [address] [place], [address], 09/28/2023 12:25:54 09/28/19 24 09/28/2023 COMP MET PANEL /LIVE R GFR >60 Refer ence Range : [place] ge GFR Healt hy Adult : >60 [...] calcu lator is avail able on the [facility] websi te: [email or web address] :[email or web address] [email or web address] r_[email or web address] culat or Not Available [facility] (Lab) [address] [place], [address], 09/28/2023 12:25:54 09/28/19 24 09/28/2023 COMP MET PANEL /LIVE R alkaline phosphatase 94 U/L 38-126 Not Available [facility] (Lab) [address] [place], [address], 09/28/2023 12:25:54 09/28/19 24 09/28/2023 COMP MET PANEL /LIVE R alanine aminotransfe rase 23 U/L 0-35 Not Available [facility] (Lab) [address] [place], [address], 09/28/2023 12:25:54 09/28/19 24 09/28/2023 COMP MET PANEL /LIVE R aspartate aminotransfe rase 24 U/L 15-37 Not Available [facility] (Lab) [address] [place], [address], 09/28/2023 12:25:54 09/28/19 24 09/28/2023 COMP MET PANEL /LIVE R bilirubin, total 0.20 mg/dL 0.20-1 .30 Not Available [facility] (Lab) [address] [place], [address], 09/28/2023 12:25:54 09/28/19 24 09/28/2023 COMP MET PANEL /LIVE R bilirubin, conjugated (direct) 0.00 mg/dL 0.00-0 .30 Not Available [facility] (Lab) [address] [place], [address], 09/28/2023 12:25:54 09/28/19 24 09/28/2023 COMP MET PANEL /LIVE R biliurubin,u ncong. (indirect) 0.00 mg/dL 0.00-1 .1 Not Available [facility] (Lab) [address] [place], [address], 09/28/2023 12:25:54 09/28/19 24 09/28/2023 COMP MET PANEL /LIVE R calcium 9.3 mg/dL 8.4-10 .2 Not Available [facility] (Lab) [address] [place], [address], 09/28/2023 12:25:54 09/28/19 24 09/28/2023 COMP MET PANEL /LIVE R total protein 6.3 g/dL 6.3-8. 2 Not Available [facility] (Lab) [address] [place], [address], 09/28/2023 12:25:54 09/28/19 24 09/28/2023 COMP MET PANEL /LIVE R albumin 4.1 g/dL 3.4-5. 0 Not Available [facility] (Lab) [address] [place], [address], 09/28/2023 12:25:54 09/28/19 24 09/28/2023 COMP MET PANEL /LIVE R globulin 2.2 g/dL 2.6-4. 2 low Not Available [facility] (Lab) [address] [place], [address], 09/28/2023 12:25:54 09/28/19 24 09/28/2023 COMP MET PANEL /LIVE R A/G ratio 1.9 ratio 1.0-2. 0 Not Available [facility] (Lab) [address] [place], [address], 09/28/2023 12:25:54 09/28/19 24 09/28/2023 T4 FREE free T4 0.88 NG/dL 0.78-2 .19 Not Available [facility] (Lab) [address] [place], [address], 09/28/2023 12:35:36 09/28/19 24 09/28/2023 VITAM IN D 25-HY DROXY vd25oh 38.4 NG/mL 30-100 Vitam in D Statu s: Defic ient: <20 ng/mL Insuf ficie nt: 20-29 ng/mL Suffi cient : 30-10 0 ng/mL Not Available [facility] (Lab) [address] [place], [address], 09/28/2023 12:35:47 09/28/19 24 09/28/2023 TSH thyroid-stim ulating hormone 0.989 uIU/m L 0.465- 4.680 Not Available [facility] (Lab) [address] [place], [address], 09/28/2023 13:09:13 09/28/19 24 09/28/2023 VITAM IN B12 (TAHIR DESMOND ) vb12 621 pg/mL 239-93 1 Not Available [facility] (Lab) [address] [place], [address], 09/28/2023 13:24:00 09/28/19 24 09/28/2023 FOLAT E, SERUM /PLAS MA folate 15.4 NG/mL 2.76-2 0.0 Not Available [facility] (Lab) [address] [place], [address], 09/28/2023 13:24:05 09/28/19 24 09/28/2023 HEMOG LOBIN A1C HA1C 7.1 % 4.0-6. 0 high Diabe danay Scree dani Crite sánchez: <5.7% Consi stent with absen ce of diabe danay 5.7-6 .4% Consi stent with incre ased risk for diabe danay (pred iabet es) >OR=6 .5% Consi stent with diabe danay REFER ENCE: Diabe danay Care 2015, 39([facility]cloud ppl.1 ):s13 -s22 Not Available [facility] (Lab) [address] [place], [address], 09/28/2023 19:31:13 01/21/20 24 01/21/2024 CBC/C OMPLE TE BLD COUNT W/DIF F white blood cells 9.4 x10'3 /uL 4.2-10 .8 Not Available [facility] (Lab) [address] [place], [address], 01/21/2024 15:10:56 01/21/20 24 01/21/2024 CBC/C OMPLE TE BLD COUNT W/DIF F red blood cells 4.36 x10'6 /uL 3.80-5 .20 Not Available [facility] (Lab) [address] [place], [address], 01/21/2024 15:10:56 01/21/20 24 01/21/2024 CBC/C OMPLE TE BLD COUNT W/DIF F hemoglobin 12.6 g/dL 12.0-1 5.6 Not Available [facility] (Lab) [address] [place], [address], 01/21/2024 15:10:56 01/21/20 24 01/21/2024 CBC/C OMPLE TE BLD COUNT W/DIF F hematocrit 39.4 % 35.7-4 5.7 Not Available [facility] (Lab) [address] [place], [address], 01/21/2024 15:10:56 01/21/20 24 01/21/2024 CBC/C OMPLE TE BLD COUNT W/DIF F mean red cell volume 90.4 fL 82.0-9 9.0 Not Available [facility] (Lab) [address] [place], [address], 01/21/2024 15:10:56 01/21/20 24 01/21/2024 CBC/C OMPLE TE BLD COUNT W/DIF F mean red cell hemoglobin 28.9 pg 27.0-3 3.0 Not Available [facility] (Lab) [address] [place], [address], 01/21/2024 15:10:56 01/21/20 24 01/21/2024 CBC/C OMPLE TE BLD COUNT W/DIF F mean RBC HGB concentratio n 32.0 g/dL 31.0-3 6.0 Not Available [facility] (Lab) [address] [place], [address], 01/21/2024 15:10:56 01/21/20 24 01/21/2024 CBC/C OMPLE TE BLD COUNT W/DIF F red cell distribution width 12.4 % 11.8-1 5.5 Not Available [facility] (Lab) [address] [place], [address], 01/21/2024 15:10:56 01/21/20 24 01/21/2024 CBC/C OMPLE TE BLD COUNT W/DIF F platelets 277 x10'3 /uL 150-40 0 Not Available [facility] (Lab) [address] [place], [address], 01/21/2024 15:10:56 01/21/20 24 01/21/2024 CBC/C OMPLE TE BLD COUNT W/DIF F mean platelet volume 10.8 fL 9.0-12 .4 Not Available [facility] (Lab) [address] [place], [address], 01/21/2024 15:10:56 01/21/20 24 01/21/2024 CBC/C OMPLE TE BLD COUNT W/DIF F neutrophils 56.2 % 39.0-7 2.0 Not Available [facility] (Lab) [address] [place], [address], 01/21/2024 15:10:56 01/21/20 24 01/21/2024 CBC/C OMPLE TE BLD COUNT W/DIF F lymphocytes 32.5 % 16.0-4 7.0 Not Available [facility] (Lab) [address] [place], [address], 01/21/2024 15:10:56 01/21/20 24 01/21/2024 CBC/C OMPLE TE BLD COUNT W/DIF F monocytes 8.9 % 5.0-12 .0 Not Available [facility] (Lab) [address] [place], [address], 01/21/2024 15:10:56 01/21/20 24 01/21/2024 CBC/C OMPLE TE BLD COUNT W/DIF F eosinophils 1.1 % 1.0-7. 0 Not Available [facility] (Lab) [address] [place], [address], 01/21/2024 15:10:56 01/21/20 24 01/21/2024 CBC/C OMPLE TE BLD COUNT W/DIF F basophils 0.6 % 0.0-2. 0 Not Available [facility] (Lab) [address] [place], [address], 01/21/2024 15:10:56 01/21/20 24 01/21/2024 CBC/C OMPLE TE BLD COUNT W/DIF F immature granulocytes 0.7 % 0.00-0 .50 high Not Available [facility] (Lab) [address] [place], [address], 01/21/2024 15:10:56 01/21/20 24 01/21/2024 CBC/C OMPLE TE BLD COUNT W/DIF F neutrophils, absolute count 5.26 x10'3 /uL 1.5-8. 0 Not Available [facility] (Lab) [address] [place], [address], 01/21/2024 15:10:56 01/21/20 24 01/21/2024 CBC/C OMPLE TE BLD COUNT W/DIF F lymphocytes, absolute count 3.04 x10'3 /uL 1.07-3 .43 Not Available [facility] (Lab) [address] [place], [address], 01/21/2024 15:10:56 01/21/20 24 01/21/2024 CBC/C OMPLE TE BLD COUNT W/DIF F monocytes, absolute count 0.83 x10'3 /uL 0.29-0 .99 Not Available [facility] (Lab) [address] [place], [address], 01/21/2024 15:10:56 01/21/20 24 01/21/2024 CBC/C OMPLE TE BLD COUNT W/DIF F eosinophils, absolute count 0.10 x10'3 /uL 0.02-0 .53 Not Available [facility] (Lab) [address] [place], [address], 01/21/2024 15:10:56 01/21/20 24 01/21/2024 CBC/C OMPLE TE BLD COUNT W/DIF F basophils, absolute count 0.06 x10'3 /uL 0.01-0 .08 Not Available [facility] (Lab) [address] [place], [address], 01/21/2024 15:10:56 01/21/20 24 01/21/2024 CBC/C OMPLE TE BLD COUNT W/DIF F immature granulocytes ,absolute 0.07 x10'3 /uL 0.00-0 .05 high Not Available [facility] (Lab) [address] [place], [address], 01/21/2024 15:10:56 01/21/20 24 01/21/2024 CBC/C OMPLE TE BLD COUNT W/DIF F nucleated red blood cells 0.0 % -0 Not Available [facility] (Lab) [address] [place], [address], 01/21/2024 15:10:56 01/21/20 24 01/21/2024 CBC/C OMPLE TE BLD COUNT W/DIF F NRBC# 0.00 x10'3 /uL Not Available [facility] (Lab) [address] [place], [address], 01/21/2024 15:10:56 01/21/20 24 01/21/2024 HEMOG LOBIN A1C HA1C 7.1 % 4.0-6. 0 high Diabe danay Scree dani Crite sánchez: <5.7% Consi stent with absen ce of diabe danay 5.7-6 .4% Consi stent with incre ased risk for diabe danay (pred iabet es) >OR=6 .5% Consi stent with diabe danay REFER ENCE: Diabe danay Care 2016, 39(Mccloud ppl.1 ):s13 -s22 Not Available [facility] (Lab) [address] [place], [address], 01/21/2024 16:48:14 01/21/20 24 01/21/2024 MICRO ALBUM IN RANDO M URINE microalbumin , urine 14.8 mg/L 0.0-16 .6 Not Available [facility] (Lab) [address] [place], [address], 01/21/2024 17:13:33 01/21/20 24 01/21/2024 LIPID PANEL cholesterol 120 mg/dL 140-19 9 low NIH ELKE NSUS RECOM MENDA TION FOR YANELY STERO L: ADULT CHILD LOW RISK: <200 <170 BORDE RLINE : <200- 239 ----- HIGH RISK: >240 >200 Not Available [facility] (Lab) [address] [place], [address], 01/21/2024 18:36:55 01/21/20 24 01/21/2024 LIPID PANEL triglyceride s 173 mg/dL 0-150 high NIH ELKE NSUS REPOR T RECOM MENDA TION FOR TRIGL YCERI YAZMIN: ADULT CHILD LOW RISK: <150 ----- BODER LINE: 150-1 99 ----- HIGH RISK: >200 ----- Not Available [facility] (Lab) [address] [place], [address], 01/21/2024 18:36:55 01/21/20 24 01/21/2024 LIPID PANEL HDL cholesterol 41 mg/dL 40- Not Available [facility] (Lab) [address] [place], [address], 01/21/2024 18:36:55 01/21/20 24 01/21/2024 LIPID PANEL [...] WILL NOT BE REPOR VIKTOR. Not Available [facility] (Lab) [address] [place], [address], 01/21/2024 18:36:55 01/21/20 24 01/21/2024 COMPR EHENS RODOLFO METAB OLIC PANEL sodium 136 mmol/ L 137-14 5 low Not Available [facility] (Lab) [address] [place], [address], 01/21/2024 18:37:20 01/21/20 24 01/21/2024 COMPR EHENS RODOLFO METAB OLIC PANEL potassium 4.3 mmol/ L 3.5-5. 1 Not Available [facility] (Lab) [address] [place], [address], 01/21/2024 18:37:20 01/21/20 24 01/21/2024 COMPR EHENS RODOLFO METAB OLIC PANEL chloride 105 mmol/ L 98-107 Not Available [facility] (Lab) [address] [place], [address], 01/21/2024 18:37:20 01/21/20 24 01/21/2024 COMPR EHENS RODOLFO METAB OLIC PANEL carbon dioxide 23 mmol/ L 22-30 Not Available [facility] (Lab) [address] [place], [address], 01/21/2024 18:37:20 01/21/20 24 01/21/2024 COMPR EHENS RODOLFO METAB OLIC PANEL anion gap 12.3 mmol/ L 14-22 low Not Available [facility] (Lab) [address] [place], [address], 01/21/2024 18:37:20 01/21/20 24 01/21/2024 COMPR EHENS RODOLFO METAB OLIC PANEL glucose 130 mg/dL 70-99 high Not Available [facility] (Lab) [address] [place], [address], 01/21/2024 18:37:20 01/21/20 24 01/21/2024 COMPR EHENS RODOLFO METAB OLIC PANEL BUN 14 mg/dL 8-19 Not Available [facility] (Lab) [address] [place], [address], 01/21/2024 18:37:20 01/21/20 24 01/21/2024 COMPR EHENS RODOLFO METAB OLIC PANEL creatinine 0.54 mg/dL 0.66-1 .25 low Not Available [facility] (Lab) [address] [place], [address], 01/21/2024 18:37:20 01/21/20 24 01/21/2024 COMPR EHENS RODOLFO METAB OLIC PANEL GFR >60 Refer ence Range : [place] ge GFR Healt hy Adult : >60 [...] or ethni c subgr oups, such as [facility] nics. Outsi de the valid ated tammie [...] s/kdo qi/gf r_cal culat or Not Available [facility] (Lab) [address] [place], [address], 01/21/2024 18:37:20 01/21/20 24 01/21/2024 COMPR EHENS RODOLFO METAB OLIC PANEL alkaline phosphatase 103 U/L 38-126 Not Available [facility] (Lab) [address] [place], [address], 01/21/2024 18:37:20 01/21/20 24 01/21/2024 COMPR EHENS RODOLFO METAB OLIC PANEL alanine aminotransfe rase 37 U/L 0-35 high Not Available [facility] (Lab) [address] [place], [address], 01/21/2024 18:37:20 01/21/20 24 01/21/2024 COMPR EHENS RODOLFO METAB OLIC PANEL aspartate aminotransfe rase 24 U/L 15-37 Not Available [facility] (Lab) [address] [place], [address], 01/21/2024 18:37:20 01/21/20 24 01/21/2024 COMPR EHENS RODOLFO METAB OLIC PANEL bilirubin, total 0.60 mg/dL 0.20-1 .30 Not Available [facility] (Lab) [address] [place], [address], 01/21/2024 18:37:20 01/21/20 24 01/21/2024 COMPR EHENS RODOLFO METAB OLIC PANEL calcium 9.3 mg/dL 8.4-10 .2 Not Available [facility] (Lab) [address] [place], [address], 01/21/2024 18:37:20 01/21/20 24 01/21/2024 COMPR EHENS RODOLFO METAB OLIC PANEL total protein 6.5 g/dL 6.3-8. 2 Not Available [facility] (Lab) [address] [place], [address], 01/21/2024 18:37:20 01/21/20 24 01/21/2024 COMPR EHENS RODOLFO METAB OLIC PANEL albumin 4.3 g/dL 3.4-5. 0 Not Available [facility] (Lab) [address] [place], [address], 01/21/2024 18:37:20 01/21/20 24 01/21/2024 COMPR EHENS RODOLFO METAB OLIC PANEL globulin 2.2 g/dL 2.6-4. 2 low Not Available [facility] (Lab) [address] [place], [address], 01/21/2024 18:37:20 01/21/20 24 01/21/2024 COMPR EHENS RODOLFO METAB OLIC PANEL A/G ratio 2.0 ratio 1.0-2. 0 Not Available [facility] (Lab) [address] [place], [address], 01/21/2024 18:37:20 01/21/20 24 01/21/2024 VITAM IN D 25-HY DROXY vd25oh 38.5 NG/mL 30-100 Vitam in D Statu s: Defic ient: <20 ng/mL Insuf ficie nt: 20-29 ng/mL Suffi cient : 30-10 0 ng/mL Not Available [facility] (Lab) [address] [place], [address], 01/21/2024 18:58:38 01/21/20 24 01/21/2024 TSH W/REF KAELYN FT4 TSH with reflex free T4 0.625 uIU/m L 0.465- 4.680 Not Available [facility] (Lab) [address] [place], [address], 01/21/2024 19:06:07 01/21/20 24 01/21/2024 VITAM IN B12 (TAHIR DESMOND ) vb12 784 pg/mL 239-93 1 Not Available [facility] (Lab) [address] [place], [address], 01/21/2024 19:47:31 01/21/2001/21/2024 FOLAT E, SERUM /PLAS MA folate >20.0 NG/mL 2.76-2 0.0 Not Available [facility] (Lab) [address] [place], [address], 01/21/2024 19:47:38 04/14/2004/14/2024 MICRO ALBUM IN RANDO M URINE microalbumin , urine 78.8 mg/L 0.0-16 .6 high Not Available [facility] (Lab) [address] [place], [address], 04/14/2024 18:27:48 04/14/2004/14/2024 LIPID PANEL cholesterol 133 mg/dL 140-19 9 low NIH [facility] NSUS RECOM MENDA TION FOR YANELY STERO L: ADULT CHILD LOW RISK: <200 <170 BORDE RLINE : <200- 239 ----- HIGH RISK: >240 >200 Not Available [facility] (Lab) [address] [place], [address], 04/14/2024 18:28:48 04/14/2004/14/2024 LIPID PANEL triglyceride s 187 mg/dL 0-150 high NIH [facility] NSUS REPOR T RECOM MENDA TION FOR TRIGL YCERI YAZMIN: ADULT CHILD LOW RISK: <150 ----- BODER LINE: 150-1 99 ----- HIGH RISK: >200 ----- Not Available [facility] (Lab) [address] [place], [address], 04/14/2024 18:28:48 04/14/2004/14/2024 LIPID PANEL HDL cholesterol 49 mg/dL 40- Not Available [facility] (Lab) [address] [place], [address], 04/14/2024 18:28:48 04/14/2004/14/2024 LIPID PANEL LDL cholesterol, [...] WILL NOT BE REPOR VIKTOR. Not Available [facility] (Lab) [address] [place], [address], 04/14/2024 18:28:48 04/14/2004/14/2024 COMPR EHENS RODOLFO METAB OLIC PANEL sodium 135 mmol/ L 137-14 5 low Not Available [facility] (Lab) [address] [place], [address], 04/14/2024 18:28:56 04/14/2004/14/2024 COMPR EHENS RODOLFO METAB OLIC PANEL potassium 4.3 mmol/ L 3.5-5. 1 Not Available [facility] (Lab) [address] [place], [address], 04/14/2024 18:28:56 04/14/2004/14/2024 COMPR EHENS RODOLFO METAB OLIC PANEL chloride 101 mmol/ L 98-107 Not Available [facility] (Lab) [address] [place], [address], 04/14/2024 18:28:56 04/14/2004/14/2024 COMPR EHENS RODOLFO METAB OLIC PANEL carbon dioxide 23 mmol/ L 22-30 Not Available [facility] (Lab) [address] [place], [address], 04/14/2024 18:28:56 04/14/2004/14/2024 COMPR EHENS RODOLFO METAB OLIC PANEL anion gap 15.3 mmol/ L 14-22 Not Available [facility] (Lab) [address] [place], [address], 04/14/2024 18:28:56 04/14/2004/14/2024 COMPR EHENS RODOLFO METAB OLIC PANEL glucose 165 mg/dL 70-99 high Not Available [facility] (Lab) [address] [place], [address], 04/14/2024 18:28:56 04/14/2004/14/2024 COMPR EHENS RODOLFO METAB OLIC PANEL BUN 21 mg/dL 8-19 high Not Available [facility] (Lab) [address] [place], [address], 04/14/2024 18:28:56 04/14/2004/14/2024 COMPR EHENS RDOOLFO METAB OLIC PANEL creatinine 0.55 mg/dL 0.66-1 .25 low Not Available [facility] (Lab) [address] [place], [address], 04/14/2024 18:28:56 04/14/2004/14/2024 COMPR EHENS RODOLFO METAB OLIC PANEL GFR >60 Refer ence Range : [place] ge GFR Healt hy Adult : >60 [...] calcu lator is avail able on the [facility] websi te: [email or web address] :[email or web address] ional s/kdo qi/gf r_cal culat or Not Available [facility] (Lab) [address] [place], [address], 04/14/2024 18:28:56 04/14/2004/14/2024 COMPR EHENS RODOLFO METAB OLIC PANEL alkaline phosphatase 109 U/L 38-126 Not Available [facility] (Lab) [address] [place], [address], 04/14/2024 18:28:56 04/14/2004/14/2024 COMPR EHENS RODOLFO METAB OLIC PANEL alanine aminotransfe rase 43 U/L 0-35 high Not Available [facility] (Lab) [address] [place], [address], 04/14/2024 18:28:56 04/14/2004/14/2024 COMPR EHENS RODOLFO METAB OLIC PANEL aspartate aminotransfe rase 28 U/L 15-37 Not Available [facility] (Lab) [address] [place], [address], 04/14/2024 18:28:56 04/14/2004/14/2024 COMPR EHENS RODOLFO METAB OLIC PANEL bilirubin, total 0.50 mg/dL 0.20-1 .30 Not Available [facility] (Lab) [address] [place], [address], 04/14/2024 18:28:56 04/14/2004/14/2024 COMPR EHENS RODOLFO METAB OLIC PANEL calcium 9.9 mg/dL 8.4-10 .2 Not Available [facility] (Lab) [address] [place], [address], 04/14/2024 18:28:56 04/14/2004/14/2024 COMPR EHENS RODOLFO METAB OLIC PANEL total protein 6.4 g/dL 6.3-8. 2 Not Available [facility] (Lab) [address] [place], [address], 04/14/2024 18:28:56 04/14/2004/14/2024 COMPR EHENS RODOLFO METAB OLIC PANEL albumin 4.4 g/dL 3.4-5. 0 Not Available [facility] (Lab) [address] [place], [address], 04/14/2024 18:28:56 04/14/2004/14/2024 COMPR EHENS RODOLFO METAB OLIC PANEL globulin 2.0 g/dL 2.6-4. 2 low Not Available [facility] (Lab) [address] [place], [address], 04/14/2024 18:28:56 04/14/2004/14/2024 COMPR EHENS RODOLFO METAB OLIC PANEL A/G ratio 2.2 ratio 1.0-2. 0 high Not Available [facility] (Lab) [address] [place], [address], 04/14/2024 18:28:56 04/14/2004/14/2024 VITAM IN D 25-HY DROXY vd25oh 32.6 NG/mL 30-100 Vitam in D Statu s: Defic ient: <20 ng/mL Insuf ficie nt: 20-29 ng/mL Suffi cient : 30-10 0 ng/mL Not Available [facility] (Lab) [address] [place], [address], 04/14/2024 18:57:43 04/14/2004/14/2024 TSH W/REF KAELYN FT4 TSH with reflex free T4 0.916 uIU/m L 0.465- 4.680 Not Available [facility] (Lab) [address] [place], [address], 04/14/2024 19:04:13 04/14/2004/14/2024 CBC/C OMPLE TE BLD COUNT W/DIF F white blood cells 15.6 x10'3 /uL 4.2-10 .8 high Not Available [facility] (Lab) [address] [facility] [place], [address], 04/14/2024 19:17:17 04/14/2004/14/2024 CBC/C OMPLE TE BLD COUNT W/DIF F red blood cells 4.56 x10'6 /uL 3.80-5 .20 Not Available [facility] (Lab) [address] [place], [address], 04/14/2024 19:17:17 04/14/2004/14/2024 CBC/C OMPLE TE BLD COUNT W/DIF F hemoglobin 13.3 g/dL 12.0-1 5.6 Not Available [facility] (Lab) [address] [place], [address], 04/14/2024 19:17:17 04/14/2004/14/2024 CBC/C OMPLE TE BLD COUNT W/DIF F hematocrit 41.2 % 35.7-4 5.7 Not Available [facility] (Lab) [address] [place], [address], 04/14/2024 19:17:17 04/14/2004/14/2024 CBC/C OMPLE TE BLD COUNT W/DIF F mean red cell volume 90.4 fL 82.0-9 9.0 Not Available [facility] (Lab) [address] [place], [address], 04/14/2024 19:17:17 04/14/2004/14/2024 CBC/C OMPLE TE BLD COUNT W/DIF F mean red cell hemoglobin 29.2 pg 27.0-3 3.0 Not Available [facility] (Lab) [address] [place], [address], 04/14/2024 19:17:17 04/14/2004/14/2024 CBC/C OMPLE TE BLD COUNT W/DIF F mean RBC HGB concentratio n 32.3 g/dL 31.0-3 6.0 Not Available [facility] (Lab) [address] [place], [address], 04/14/2024 19:17:17 04/14/2004/14/2024 CBC/C OMPLE TE BLD COUNT W/DIF F red cell distribution width 12.9 % 11.8-1 5.5 Not Available [facility] (Lab) [address] [place], [address], 04/14/2024 19:17:17 04/14/2004/14/2024 CBC/C OMPLE TE BLD COUNT W/DIF F platelets 254 x10'3 /uL 150-40 0 Not Available [facility] (Lab) [address] [place], [address], 04/14/2024 19:17:17 04/14/2004/14/2024 CBC/C OMPLE TE BLD COUNT W/DIF F mean platelet volume 10.7 fL 9.0-12 .4 Not Available [facility] (Lab) [address] [place], [address], 04/14/2024 19:17:17 04/14/2004/14/2024 CBC/C OMPLE TE BLD COUNT W/DIF F neutrophils 57 % 39.0-7 2.0 Not Available [facility] (Lab) [address] [place], [address], 04/14/2024 19:17:17 04/14/2004/1404/14/2024 CBC/C OMPLE TE BLD COUNT W/DIF F lymphocytes 35 % 16.0-4 7.0 Not Available [facility] (Lab) [address] [place], [address], 04/14/2024 19:17:17 04/14/2004/14/2024 CBC/C OMPLE TE BLD COUNT W/DIF F monocytes 8 % 5.0-12 .0 Not Available [facility] (Lab) [address] [place], [address], 04/14/2024 19:17:17 04/14/2004/14/2024 CBC/C OMPLE TE BLD COUNT W/DIF F neutrophils, absolute count 7.96 x10'3 /uL 1.5-8. 0 Not Available [facility] (Lab) [address] [place], [address], 04/14/2024 19:17:17 04/14/2004/14/2024 CBC/C OMPLE TE BLD COUNT W/DIF F nucleated red blood cells 0.0 % -0 Not Available [facility] (Lab) [address] [place], [address], 04/14/2024 19:17:17 04/14/2004/14/2024 CBC/C OMPLE TE BLD COUNT W/DIF F NRBC# 0.00 x10'3 /uL Not Available [facility] (Lab) [address] [place], [address], 04/14/2024 19:17:17 04/14/2004/14/2024 VITAM IN B12 (TAHIR DESMOND ) vb12 718 pg/mL 239-93 1 Not Available [facility] (Lab) [address] [place], [address], 04/14/2024 19:47:06 04/14/2004/14/2024 FOLAT E, SERUM /PLAS MA folate >20.0 NG/mL 2.76-2 0.0 Not Available [facility] (Lab) [address] [place], [address], 04/14/2024 19:47:07 04/14/20 24 04/14/2024 HEMOG LOBIN A1C HA1C 8.9 % 4.0-6. 0 high Diabe danay Scree dani Crite sánchez: <5.7% Consi stent with absen ce of diabe danay 5.7-6 .4% Consi stent with incre ased risk for diabe danay (pred iabet es) >OR=6 .5% Consi stent with diabe danay REFER ENCE: Diabe danay Care 2016, 39(Mccloud ppl.1 ):s13 -s22 Not Available [facility] (Lab) [address] [place], [address], 04/14/2024 21:52:36 09/03/19 24 09/02/2023 CT, abdom en + pelvi s, w/ contr ast No observ ation record ed. [address], [address], 12/16/2023 11:52:16 10/29/19 24 10/26/2023 US, echoc ardio gram No observ ation record ed. [address] [facility] [address], [place], [address], 12/16/2023 11:50:49 12/07/19 24 12/07/2023 XR, chest , 2 view No observ ation record ed. [address], [address], 12/16/2023 11:48:14 02/03/20 24 02/03/2024 XR, chest No observ ation record ed. [address], [address], 06/12/2024 08:35:33 02/11/20 24 02/05/2024 compl ete [facility]FT w/ [facility] hodil ator rosibel metry * No observ ation record ed. [facility] ([facility]) [address] [place], [address], 02/11/2024 10:47:23 02/25/20 24 02/25/2024 XR, chest No observ ation record ed. [address] [place], [address], 06/12/2024 08:40:54 02/25/20 24 02/25/2024 CT, abdom en + pelvi s, w/ contr ast No observ ation record ed. [address] [place], [address], 06/12/2024 08:41:30 03/11/20 24 02/05/2024 compl ete PFT w/ [facility] rosibel metry * No observ ation record ed. [address] ([employer]) [address] [place], [address], 06/12/2024 08:42:24 04/28/20 24 04/28/2024 imagi ng/di agnos tic resul t No observ ation record ed. [address] [facility] [address], [place], [address], 06/12/2024 09:04:07 06/29/19 25 06/29/2024 imagi ng/di agnos tic resul t No observ ation record ed. [facility] [address] [place], [address], 06/29/2024 21:59:29 10/26/19 25 10/25/2024 imagi ng/di agnos tic resul t No observ ation record ed. [place] [id number] [facility] [address], [place], [address], 10/25/2024 13:06:32 11/19/19 25 11/18/2024 imagi ng/di agnos tic resul t No observ ation record ed. [facility] [address], [place], [address], 11/18/2024 14:32:45 Result Notes None recorded. Problems Name Problem SNOMED Code Status Onset Date Resolution Date Notes Provider Name and Address Organization Details Recorded Time Allergic rhinitis 77228883 Active 2022 Not Available [facility] 3 12:23:27 Attention deficit hyperactiv ity disorder 208405405 Active 2022 Not Available [facility] 3 12:23:27 Urinary incontinen ce 589811260 Active 2022 Not Available [facility] 3 12:23:26 Kyphoscoli osis deformity of spine 341175938 Active 2023 Hernan tapia MD [address], [place], [address] , [employer] [facility] [employer] 4 11:14:35 Vitamin D deficiency 89619408 Active 2023 Hernan tapia MD [address], [place], [address] , [employer] [facility] [employer] [facility] 4 11:15:48 Gastroesop hageal reflux disease 081401445 Active 2023 Emily Silva MA null, [place] [employer] [facility] [address] [facility] 4 16:52:37 Hypertroph y of vulva 69950937 Active 2023 Hernan tapia MD [address], [place], [address] , [facility] [employer] [facility] [employer] [facility] 4 12:01:44 Serum vitamin B12 below reference range 415299732 Active 2023 Hernan tapia MD [address], [place], [address] , [facility] 4 12:01:44 Hyperlipid emia 28109585 Active 2023 Hernan tapia MD [address], [place], [address] , [facility] 4 12:04:41 Pruritic rash 84926240 Active 2023 Hernan tapia MD [address], [place], [address] , [facility] 4 15:58:39 Tachycardi a 7455625 Active 2023 Hernan tapia MD [address], [place], [address] , [facility] 4 15:58:39 Gastroesop hageal reflux disease without esophagiti s 757813616 Active 2023 Hernan tapia MD [address], [place], [address] , [facility] 4 15:58:39 Type 2 diabetes mellitus without complicati on 091867944 Active 2023 Hernan tapia MD [address], [place], [address] , [facility] 4 15:58:39 Asthma 670963432 Active 2023 Hernan tapia MD [address], [place], [address] , [facility] 4 15:58:39 Pain of bilateral hip joints [id number] 9100 Active 2023 Hernan tapia MD [address], [place], [address] , [facility] 4 15:58:39 Chest pain 59076589 Active 2023 Hernan tapia MD [address] [facility], [address] [address], [place], [address] , [facility] [employer] [facility] 4 16:11:32 Dyspnea on exertion 76180644 Active 2023 Hernan tapia MD [address] [facility], [address] [address], [place], [address] , [facility] [employer] [facility] 4 16:38:14 Leukocytos is [id number] Active 2023 Hernan tapia MD [address] [facility], [address] [address], [place], [address] , [facility] [employer] [facility] 4 14:19:47 Generalize d anxiety disorder 71200415 Active 2021 Not Available [facility] 3 12:23:27 Mixed hyperlipid emia 415018475 Active 2021 Not Available [facility] 3 12:23:27 Angioedema 96007116 Active 2022 Not Available [facility] 3 12:23:27 Well controlled type 2 diabetes mellitus 584763190 Active 2021 Not Available [facility] 3 12:23:27 Notes:Medical History: Angio edema ADHD/Anxiety Bilateral tinnitus Rhinitis Eosinophils 120/uL IgE 8 IU/mL Hypogammaglobulinemia (total, IgG2) AAT PiMM 142 mg% Obesity Sinus tachycardia with EF 65% Mixed hyperlipidemia T2DM MARILYN Urge urinary incontinence Vit D deficiency Thoracic kyphoscoliosis Bilateral trochanteric bursitis Procedure History: Thoracolumbar fusion 2014 EGD with (-) biopsies 2023 Occupational History: Disabled Some problems listed in Documents: #[id number], #[id number] could not be added to this patient's chart. Please review these documents and add these problems to the patient's chart manually as needed. Problem Notes None recorded. Procedures Surgical History Date Name Laterality Status Provider Name and Address Organization Details Recorded Time 3 Medicare Wellness CPT Code, subsequent completed JHONATHAN Estevez [address] [facility] [facility], [facility] [address], [place], [address], [facility] [employer] 04/27/2023 13:17:16 Back Surgery completed Not Available [facility] 08/16/2022 04:29:31 Imaging Results None recorded. Procedure Notes None recorded. Medical Equipment None Reported. Allergies Allergen ID Allergen Name Allergen Category Reaction Reaction Severity Criticality Documentation Date Start Date Code Code System Note Provider Name and Address Organization Details Recorded Time 51279 black pepper preparati on food Not available Not available Not available 01/29/2023 42455 4 RxNorm ANIKA Matias, [facility] [employer] 3 11:40:43 6541 Robitussi n medicatio n Not available Not available Not available 08/16/2022 42289 2 RxNorm Not Available [facility] 3 04:39:19 6542 ibuprofen / pseudoeph edrine medicatio n Not available Not available Not available 08/16/2022 43671 2 RxNorm Not Available [facility] 3 04:39:19 6543 Chlor-Tri meton medicatio n Not available Not available Not available 08/16/2022 58152 4 RxNorm Not Available [facility] 3 04:39:19 6544 azithromy jayshree medicatio n Not available Not available Not available 08/16/2022 68073 RxNorm Not Available [facility] 3 04:39:19 80489 prednison e medicatio n Not available Not available Not available 12/26/2023 8640 RxNorm RAMAN Martino, [facility] [employer] 4 12:24:28 Medications Name Sig Start Date [...] propionate 50 mcg/actuati on nasal spray,suspe nsion Wayne 2 sprays every day by intranasa l [...] Updated DateTime 4 163.83 cm 29.6 kg/m2 33272.6 6 g 97.6 [degF] 78 /min 110 mm[Hg] 60 mm[Hg] CHARO Cabral [facility] [employer] [facility] 4 10:44:15 Date Recorded Heart rate Respiratory rate Provider Miguel chalino and Address Organization Details Last Updated DateTime 12/26/2023 87 /min 15 /min Gray Zeng MD [address] [place] [address], [address], [facility] [employer] [facility] 12/26/2023 13:00:37 Date Recorded Body height Body mass index (BMI) Body weight Body temperature Heart rate Oxygen saturation Oxygen saturation in Arterial blood by Pulse oximetry Systolic blood pressure Diastolic blood pressure Provider Name and Address Organization Details Last Updated DateTime 4 163.83 cm 30.4 kg/m2 20917.6 3 g 97.9 [degF] 87 /min 97 % 97 % 108 mm[Hg] 64 mm[Hg] Roselyn Whitehead MA [facility] [address] [facility] 4 12:31:07 Date Recorded Body height Body mass index (BMI) Body weight Body temperature Heart rate Systolic blood pressure Diastolic blood pressure Provider Name and Address Organization Details Last Updated DateTime 4 163.83 cm 30.8 kg/m2 51914.8 1 g 97.5 [degF] 84 /min 110 mm[Hg] 64 mm[Hg] CHARO Cabral [facility] [employer] [facility] 4 11:50:02 Date Recorded Body height Body mass index (BMI) Body weight Body temperature Heart rate Oxygen saturation Oxygen saturation in Arterial blood by Pulse oximetry Systolic blood pressure Diastolic blood pressure Provider Name and Address Organization Details Last Updated DateTime 4 163.83 cm 30.6 kg/m2 53430.2 2 g 96.2 [degF] 92 /min 98 % 98 % 122 mm[Hg] 74 mm[Hg] Lili Martinez MA [facility] [employer] [facility] 4 16:22:19 Date Recorded Body height Body mass index (BMI) Body weight Respiratory rate Systolic blood pressure Diastolic blood pressure Provider Name and Address Organization Details Last Updated DateTime 4 163.83 cm 30.6 kg/m2 07170.2 2 g 16 /min 104 mm[Hg] 62 mm[Hg] Hernan grider MD [address] [facility], [facility] [address], [place], [address], [facility] [employer] [facility] 4 09:41:51 Date Recorded Body temperature Heart rate Oxygen saturation Oxygen saturation in Arterial blood by Pulse oximetry Provider Name and Address Organization Details Last Updated DateTime 04/23/2024 98.4 [degF] 88 /min 98 % 98 % Gm Vogt LPN [facility] [employer] 4 09:44:49 Social History Question Answer Notes LastModified by Organizat ion Details LastModified Time Tobacco Smoking Status Former Smoker CHARO Stahl, [facility] [employer] [facility] 03/29/2023 12:51:30 Do You Have An Advance Directive? No [id number].[id number] Information not available 08/16/2022 What Is Your Level Of Caffeine Consumption? Moderate Information not available 12/26/2023 How Much Tobacco Do You Chew? None MIGRATION.[id number] 1688 Information not available 08/16/2022 In The 14 Days Before Symptom Onset, Have You Had Close Contact With A Laboratory-confir med COVID-19 While That Case Was Ill? No MIGRATION.[id number] 7154 Information not available 08/16/2022 In The 14 Days Before Symptom Onset, Have You Had Close Contact With A Person Who Is Under Investigation For COVID-19 While That Person Was Ill? No MIGRATION.903588 1109 Information not available 08/16/2022 What Type Of Diet Are You Following? REGULAR MIGRATION.855846 9319 Information not available 08/16/2022 Which Illicit Or Recreational Drugs Have You Used? Marijuana MIGRATION.835715 5032 Information not available 08/16/2022 Do You Have An Electrostatic Air Filter? No Information not available 12/26/2023 Have There Been Any Changes To Your Family Or Social Situation? No MIGRATION.652159 7172 Information not available 08/16/2022 What Is The Fluoride Status Of Your Home? Unknown MIGRATION.238676 4703 Information not available 08/16/2022 Are There Any Guns Present In Your Home? No MIGRATION.969575 0850 Information not available 08/16/2022 Do You Have A Humidifier? No Information not available 12/26/2023 Do You Use Insect Repellent Routinely? No MIGRATION.319387 1895 Information not available 08/16/2022 [facility] MIGRATION.158542 8027 Information not available 08/16/2022 Do You Have Moisture Problems In Your Home? No Information not available 12/26/2023 What Was The Date Of Your Most Recent Tobacco Screening? 02/21/2024 Information not available 02/21/2024 Do You Have Any Pets? Yes MIGRATION.877973 6800 Information not available 08/16/2022 What Is Your Relationship Status? Single MIGRATION.429311 1512 Information not available 08/16/2022 Do You Use Your Seat Belt Or Car Seat Routinely? Yes MIGRATION.190885 5432 Information not available 08/16/2022 Do You Have Smoke And Carbon Monoxide Detectors In Your Home? Yes MIGRATION.946321 3695 Information not available 08/16/2022 Are You Passively Exposed To Smoke? Yes MIGRATION.762200 2320 Information not available 08/16/2022 Are There Any Smokers In Your House? No MIGRATION.553430 2387 Information not available 08/16/2022 Do You Use Sunscreen Routinely? No MIGRATION.784890 5840 Information not available 08/16/2022 Have You Recently Traveled Abroad? No MIGRATION.276278 4561 Information not available 08/16/2022 Have You Used IV Drugs? No Information not available 02/21/2024 Do You Have Any Dietary Restrictions? No MIGRATION.102643 9581 Information not available 08/16/2022 Sex: Female Functional Status Question Answer Note LastModified by Organizat ion Details LastModified Time Do you use any illicit or recreational drugs? Yes MIGRATION.16372 16491 Information not available 08/16/2022 Do you or have you ever used any other forms of tobacco or nicotine? Yes Information not available 02/21/2024 What is your level of alcohol consumption? Occasional MIGRATION.60223 05318 Information not available 08/16/2022 Do you or have you ever used smokeless tobacco? Never used smokeless tobacco MIGRATION.38205 81477 Information not available 08/16/2022 Are you currently employed? No Disability Information not available 02/21/2024 Have you been exposed to chemicals or toxins? not that aware of Information not available 12/26/2023 Do you or have you ever used e-cigarettes or vape? Current user of electronic cigarettes Information not available 02/21/2024 What is your exercise level? Heavy daily walks MIGRATION.01491 67035 Information not available 08/16/2022 Mental Status Question Answer Note LastModified by Organizat ion Details LastModified Time Do you feel stressed (tense, restless, nervous, or anxious, or unable to sleep at night)? [id number] MIGRATION.[id number] 6 Information not available 08/16/2022 Family History Relationship Description Onset Age of this Age Resolved Age Notes LastModified by Organization Details LastModified Time Father Diabetes mellitus [id number].[id number] Not available 08/16/2022 04:29:36 Mother Asthma [id number] [...] PF 04/23/2024 completed Hernan Madden MD [address], [facility] [address], [place], [address], [place] [facility] 04/28/2024 14:50:20 Past Encounters Encounter ID Performer Location Encounter Start Date Encounter Closed Date Diagnosis/Indication Diagnosis SNOMED-CT Code Diagnosis ICD10 Code Diagnosis Note [id number] Cici Fuller MD _EUN_Zhen IGRATION_ DEFAULT_1 _1 , 10/14/2020 00:00:00 10/14/2020 11:37:57 [id number] Cici Fuller MD _EUN_Zhen IGRATION_ DEFAULT_1 _1 , 01/20/2021 00:00:00 01/20/2021 11:25:30 [id number] [facility] _ATHENA_M IGRATION_ DEFAULT_1 _1 , 08/04/2021 00:00:00 08/04/2021 11:40:41 [id number] Hernan tapia MD [facility] Internal [facility] [address] [facility] [address] [place] [address] 12/05/2021 00:00:00 12/05/2021 16:21:18 [id number] [facility] _ATHENA_M IGRATION_ DEFAULT_1 _1 , 02/23/2022 00:00:00 02/23/2022 12:57:51 [id number] Hernan tapia MD [facility] [place] [address] [facility] [address] [place] [address] 03/06/2022 00:00:00 03/06/2022 16:52:26 [id number] S_[facility] Endo [place] [address] [place] [address] 06/13/2022 00:00:00 06/13/2022 18:11:57 [id number] JHONATHAN Estevez [facility] [place] [address] [facility] [address] [place] [address] 08/17/2022 12:10:09 08/17/2022 12:51:41 Asthma 099850241 J45.909 on albuterol prnhas nebulizer at home Allergic rhinitis 233769 04 J30.9 on cetirizine and flonase Attention deficit hyperactivity disorder 700570429 F90.9 now following psychiatry - Adán at Dr. Patel's officeon lamictal Hypertrophy of vulva [address] Dolan patient was recommende d surgical eval, but pt is not interested in surgery at this time Tachycardia 6462810 R00. 0 follows cardiology - Dr. Cora Santamaria Type 2 peg betes mellitus without complication 335997418 E11.9 follows endocrinol ogy- Dr. Poornima Bernal, she self stopped her metformin Gastroesop hageal reflux disease without esophagitis 517469472 K21.9 has been on pepcid and omeprazole in the past, now off meds Generalize d anxiety disorder 04637659 F41.1 on effexor from endoalso follows psych as aboverecom mend she call them to discuss her increase in fear of abandonmen t, recommend counseling call office if any change in mood or behavior Eczema of external auditory canal 97235327 H60.549 on mometasone cream p.r.n.avoi d putting anything into the ears, avoid scratching call if no improvemen t after meds, we can send to ENT if no better Angioedema 59359511 T78. 3XXD she has Epipen for PRN use- she knows to go to ER or call 911 if she has to use itget appt with form setter steel forms- I stressed the importance of getting this done [id number] Hernan tapia MD [facility] [address] [place] [address] 11/20/2022 11:28:40 11/20/2022 12:08:19 Asthma 820143479 J45.909 on albuterol prnhas nebulizer at home Allergic rhinitis 784393 04 J30.9 on cetirizine and flonase Attention deficit hyperactivity disorder 336742992 F90.9 now following psychiatry - Adán at Dr. Patel'phillip officeon lamictal Hypertrophy of vulva [address] Dolan patient was recommende d surgical eval, but pt is not interested in surgery at this time Tachycardia 5708064 R00. 0 follows cardiology - Dr. Cora Santamaria Type 2 peg betes mellitus without complication 269674774 E11.9 follows endocrinol ogy- Dr. Poornima Bernal, she self stopped her metformin Gastroesop hageal reflux disease without esophagitis 897644196 K21.9 has been on pepcid and omeprazole in the pastrestar t omeprazole lifestyle measures for acid reduction discussed Generalize d anxiety disorder 68927327 F41.1 on effexor from endoalso follows psych as aboverecom mend she call them to discuss her increase in fear of abandonmen t, recommend counseling call office if any change in mood or behavior Eczema of external auditory canal 00916653 H60.549 on mometasone cream p.r.n.avoi d putting anything into the ears, avoid scratching call if no improvemen t after meds, we can send to ENT if no better Angioedema 28685023 T78. 3XXD she has Epipen for PRN use- she knows to go to ER or call 911 if she has to use itnow following form setter steel forms- Dr. Beverly- has followup in 2 weeks Epigastric pain 13648483 R10.13 as aboveER precaution s [id number] Hernan tapia MD [facility] Internal Med [place] [address] [facility], [address] [place] [address] 12/22/2022 11:27:53 12/22/2022 11:46:04 Asthma 564471039 J45.909 on albuterol prnhas nebulizer at home Allergic rhinitis 311192 04 J30.9 on cetirizine and flonase Attention deficit hyperactivity disorder 548353806 F90.9 now following psychiatry - Adán at Dr. Patel's officeon lamictal Hypertrophy of vulva [address] Dolan patient was recommende d surgical eval, but pt is not interested in surgery at this time Tachycardia 5857400 R00. 0 follows cardiology - Dr. oCra Santamaria Type 2 peg betes mellitus without complication 841614047 E11.9 follows endocrinol ogy- Dr. Poornima Bernal, she self stopped her metformin Gastroesop hageal reflux disease without esophagitis 414766995 K21.9 on omeprazole - she is aware of side effects, risks, and benefits Take p.r.n. if ablelifest yle measures for acid reduction discussed Epigastric pain 83619867 R10.13 Now resolved after starting omeprazole Generalize d anxiety disorder 40729751 F41.1 on effexor from endoalso follows psych as aboverecom mend she call them to discuss her increase in fear of abandonmen t, recommend counseling call office if any change in mood or behavior Eczema of external auditory canal 33872177 H60.549 on mometasone cream p.r.n.avoi d putting anything into the ears, avoid scratching call if no improvemen t after meds, we can send to ENT if no better Angioedema 81663873 T78. 3XXD she has Epipen for PRN use- she knows to go to ER or call 911 if she has to use itnow following form setter steel forms- Dr. Beverly [facility] ankle joint [id number] 5292058 M25.571 Get x-ray today, further plan based on result Continue ankle brace Can alternate Tylenol and ibuprofen OTC for pain ER for [id number] Cici Fuller MD [facility] [place] [address] [place] [address] 01/29/2023 11:05:44 01/29/2023 12:29:48 Well controlled type 2 diabetes mellitus 872052006 E11.9 a1c of 6.9%- continue on metformin ER 500 mg BID, victoza 1.2 mg SQ daily, and farxiga 10 mg daily.Disc ussed carb counting and how to read food labels. Recommende d patient to utilize the diabetesfo [employer] from the ADA website to help with food preparatio n as this presents ideal carb content per meal so this will make carb counting much easier for patient. Recommende d she incorporat e natural insulin assistant dean of students s such as pears, apples, cinnamon, ramón and sweet potatoes to help mobilize her endogenous insulin. Recommende d up to 150 minutes of moderate level activity/e xercise weekly. Insect bite reaction 402 862143 T63.481A Refill mometasone cream for recent insect bite reaction. Spent up to 25 minutes preparing to see the patient (eg, review of tests), obtaining and/or reviewing separately obtained history, performing a medically appropriat e examinatio n and evaluation , counseling and educating the patient, ordering medication s, tests, along with documentin g clinical informatio n in the electronic health record, independen tly interpreti ng results and communicat ing results to the patient. Patient can be followed by PCP - she/he is aware of my resignatio n and last day of March 30. If needed his/her PCP can refer patient to another endocrinol ogist in the area. All questions /concerns answered and refills necessary at visit today. [id number] Luciano Spann MD [facility] Ortho [address] [address] 03/29/2023 11:49:57 04/09/2023 11:01:51 Pain of right hip joint 5665951312 21971 M25.157 [id number] Hernan tapia MD [facility] Internal Med [address] [facility] [place] [address] 04/27/2023 11:37:24 04/27/2023 12:12:44 Asthma 894745335 J45.909 on albuterol prnhas nebulizer at home Allergic rhinitis 036120 04 J30.9 on cetirizine and flonase Attention deficit hyperactivity disorder 363225667 F90.9 now following psychiatry - Adán at Dr. Patel's officeon lamictal Hypertrophy of vulva [address] Dolan patient was recommende d surgical eval, but pt is not interested in surgery at this time Tachycardia 8211086 R00. 0 follows cardiology - Dr. Cora Santamaria Type 2 peg betes mellitus without complication 865864374 E11.9 follows endocrinol ogy- Dr. Poornima Bernal, she self stopped her metformin Gastroesop hageal reflux disease without esophagitis 835360064 K21.9 on omeprazole , add famotidine at hs- she is aware of side effects, risks, and benefitsTa ke p.r.n. if ablelifest yle measures for acid reduction discussed- she must stop drinking the energy drinks!ref erral to GI per her request Generalize d anxiety disorder 88476390 F41.1 on effexor from psychrecom mend she call them to discuss her increase in fear of abandonmen t, recommend counseling call office if any change in mood or behavior Eczema of external auditory canal 37122001 H60.549 on mometasone cream p.r.n.avoi d putting anything into the ears, avoid scratching call if no improvemen t after meds, we can send to ENT if no better Angioedema 50573077 T78. 3XXD she has Epipen for PRN use- she knows to go to ER or call 911 if she has to use itnow following form setter steel forms- Dr. Beverly Adult [facility] examination 739971551 Z00.00 Screening for disorder 422904335 Z13.9 [id number] Luciano Spann MD [facility] [place] [address] 05/03/2023 14:06:36 05/14/2023 10:57:30 Pain of bilateral hip joints 5050444345 4682821 M25.551 M25.568 [id number] Hernan tapia MD [facility] Internal Med [facility] [address] [facility] [address] [place] [address] 09/25/2023 10:23:30 09/25/2023 11:21:00 Screening - NAD 508134147 Z13.9 Get yearly flu shot, tdap vaccineCan do COVID 19 vaccine and its boosters Get WWE with her OB RTC in 3 months, do labs, ER if worse, she and her mother did verbalize her understand ing of the above Allergic rhinitis 520352 04 J30.9 On flonase, does well Attention deficit hyperactivity disorder 588543624 F90.9 On lamotrigin e 100mg bidSees psychiatry Hypertrophy of vulva 169 44132 N90.60 Sees her OB Tachycardia 9452118 R00. 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, now does well, no complaints Hyperlipid emia screening 295127162 Z13.220 Vitamin D deficiency 347 64759 E55.9 Serum dayami min B12 below reference range 779194514 R79.89 Asthma 314334994 J45.90 9 On HHNsOn albuterol, renewed HFA 09/25/2023 [id number] Gray Zeng MD [facility] Pulmonolo gy [place] [address] 12/26/2023 11:52:34 12/27/2023 09:50:00 Dyspnea on exertion 11338810 R06.09 R05.9 T78.40XA D89.9 [id number] Hernan tapia MD [facility] Internal Med [place] [address] 01/15/2024 11:22:27 01/15/2024 12:43:09 Screening - NAD 263046920 Z13.9 Get yearly flu shot, tdap vaccineCan do COVID 19 vaccine and its boosters Get WWE with her OB RTC in 3 months, do labs, ER if worse, she and her mother did verbalize her understand ing of the above Allergic rhinitis 044383 04 J30.9 On flonase, does well Attention deficit hyperactivity disorder 008442745 F90.9 On lamotrigin e 100mg bidSees psychiatry Hypertrophy of vulva 169 91015 N90.60 Sees her OB Tachycardia 3597381 R00. [address] [facility], does well with this, see Dr Fried [facility] referred 01/15/2024 Type 2 peg betes mellitus without complication 065896038 E11.[address] Fuller in the pastOn Farxiga 10mg dailyOn metformin ER 500mg dailyNot on Mounjaro 5mg weekly as this caused her to have menorrhagi a, now much improvedGe t labs Generalize d anxiety disorder 07810434 F41.1 On venlafaxin e ER 75mg dailyOn lamotrigin e 100mg bidNot suicidal or homicidalS ees Dr Patel's GARBAGE PERSON Gastroesop hageal reflux disease without esophagitis 851627420 K21.9 On famotidine take as neededOn omeprazole 10mg daily take PRNOn sucralfate EGD 07/10/2023 : Dr Lott Gynecologi c examination 70744558 Z01.419 Kyphoscoli osis deformity of spine 889829519 M41.80 S/p surgery at age 18 years, now does well, no complaints Vitamin D deficiency 347 70650 E55.9 Serum dayami min B12 below reference range 071680118 R79.89 Asthma 281819826 J45.90 9 On HHNsOn albuterol, renewed HFA 09/25/[address] Zeng 02/05/2024 Hyperlipidemia 02201156 E78.5 On rosuvastat in 20mg dailyGet labs Pruritic rash 82141229 L 28.2 Was in the yard and noted she had 'bug bites', now getting better is applying triple ointment and 1% hydrocorti soneNotify if any redness or weeping noted Pain of bi lateral hip joints 0944530156 4853061 M25.[address] Spann and Dr Jere duncan to take NSAIDs very sparingly! Referred again [id number] Hernan tapia MD [facility] [address] [facility] [place] [address] 02/21/2024 16:14:25 02/21/2024 17:17:00 Screening - NAD 288802042 Z13.9 Get yearly flu shot, tdap vaccineCan do COVID 19 vaccine and its boosters Get WWE with her OB RTC in 3 months, do labs, ER if worse, she and her mother did verbalize her understand ing of the above Allergic rhinitis 755669 04 J30.9 On flonase, does well Attention deficit hyperactivity disorder 290120202 F90.9 On lamotrigin e 100mg bidSees psychiatry Hypertrophy of vulva 169 00969 N90.60 Sees her OB Tachycardia 8390860 R00. [address] Fariha Harper on corlanor 5mg bid, does well with this, see Dr Fariha ARMENTA referred 01/15/2024 , 02/21/2024 Type 2 peg betes mellitus without complication 281942107 E11.[address] Fuller in the pastOn Farxiga 10mg dailyOn metformin ER 500mg dailyNot on Mounjaro 5mg weekly as this caused her to have menorrhagi a, now much improvedGe t labs Generalize d anxiety disorder 78049289 F41.1 On venlafaxin e ER 75mg dailyOn lamotrigin e 100mg bidNot suicidal or homicidalS ees Dr Patel's GARBAGE PERSON Gastroesop hageal reflux disease without esophagitis 968048403 K21.9 On famotidine take as neededOn omeprazole 10mg daily take PRNOn sucralfate EGD 07/10/2023 : Dr Lott Gynecologi c examination 59974900 Z01.419 Kyphoscoli osis deformity of spine 364817294 M41.80 S/p surgery at age 18 years, now does well, no complaints Vitamin D deficiency 347 61285 E55.9 Serum dayami min B12 below reference range 780539822 R79.89 Asthma 504049465 J45.90 9 On HHNsOn albuterol, renewed HFA 09/25/[address] Zeng 02/05/2024 Hyperlipidemia 15649809 E78.5 On rosuvastat in 20mg dailyGet labs Pruritic rash 55823613 L 28.2 Was in the yard and noted she had 'bug bites', now getting better is applying triple ointment and 1% hydrocorti soneNotify if any redness or weeping noted Pain of bi lateral hip joints 4610675712 5404706 M25.[address] Spann and Dr AndersonAd vised to take NSAIDs very sparingly! [id number] Z76.89 ER at [place] for chest pain Chest pain 23829714 R07. 9 ER at [facility] 02/03/2024 COVID 19/flu/RSV /XR chest: NegativeD- dimer: NegativeBN P/Trop: NegWBC elevatedDo es well nowWill Dyspnea on exertion [address] Zeng 12/26/2023 PFT 02/05/2024 [id number] Hernan tapia MD [facility] [address] [facility] [address] [place] [address] 04/23/2024 09:34:28 04/23/2024 10:34:40 Screening - NAD 822613028 Z13.9 Get yearly flu shot, tdap vaccineCan do COVID 19 vaccine and its boosters Get WWE with her OB RTC in 2 months, do labs, ER if worse, she and her mother did verbalize her understand ing of the above Allergic rhinitis 452367 04 J30.9 On flonase, does well Attention deficit hyperactivity disorder 537451107 F90.9 On lamotrigin e 100mg bidSees psychiatry Hypertrophy of vulva 169 52602 N90.60 Sees her OB Tachycardia 6837758 R00. [address] Fariha ARMENTAOn corlanor 5mg bid, does well with this, see Dr Fariha ARMENTA referred 01/15/2024 , 02/21/2024 Type 2 peg betes mellitus without complication 290183812 E11.[address] Fuller in the past On Farxiga 10mg dailyOn metformin ER 500mg dailyDoes not want to get on insulin, more diet and exercise is needed Not on Mounjaro 5mg weekly as this caused her to have menorrhagi a, now much improvedGe t labs Generalize d anxiety disorder 21210377 F41.1 On venlafaxin e ER 75mg dailyOn lamotrigin e 100mg bidNot suicidal or homicidalS ees Dr Patel's GARBAGE PERSON Gastroesop hageal reflux disease without esophagitis 651091058 K21.9 On famotidine take as neededOn omeprazole 10mg daily take PRNOn sucralfate EGD 07/10/2023 : Dr Lott Gynecologi c examination 37267689 Z01.419 Kyphoscoli osis deformity of spine 472789140 M41.80 S/p surgery at age 18 years, now does well, no complaints Vitamin D deficiency 347 83508 E55.9 Serum dayami min B12 below reference range 432044116 R79.89 Asthma 528328038 J45.90 9 On HHNsOn albuterol, renewed HFA 09/25/[address] Zeng Hyperlipidemia 34428059 E78.5 On rosuvastat in 20mg daily, increase to 40mg dailyGet labs Pruritic rash 96096823 L 28.2 Was in the yard and noted she had 'bug bites', now getting better is applying triple ointment and 1% hydrocorti soneNotify if any redness or weeping noted OV 04/23/2024 : Rash noted on the external genitalia and inner thighs, get on nystatin Pain of bi lateral hip joints [id number] 1481672 M25.[address] Spann and Dr Oquendo vised to take NSAIDs very sparingly! Referred again [facility] 229030181 Z76.89 ER at [place] for chest pain Chest pain 98311398 R07. 9 ER at [facility] 02/03/2024 COVID 19/flu/RSV /XR chest: NegativeD- dimer: NegativeBN P/Trop: NegWBC elevatedDo es well now Dyspnea on exertion [address] Zeng 12/26/2023 PFT 02/05/2024 Leukocytosis 879373516 D 72.829 Get an apt with hematologi st Administra tion of influenza vaccine 42250395 Z23 Health Concerns Section Related Observation LastModified by Organization Detai ls LastModified Time None Recorded Concern Status LastModified by Organization Details LastModified Time None Recorded Advance Directives Directive N: Payers Insurance Date Sequence Insurance Name Policy Number Policy Wick Covered Member ID Wick Member ID Guarantor Name 09/11/2024 [employer] - D[employer]POS ASSIGNED (MEDICARE DME REGION B) Violet Mack [id number] Violet Mack 09/29/2024 1 [place] Violet Mack [id number] Violet Mack 10/24/2024 2 [employer] [place] (MEDICARE SUPPLEMENT) Violet Mack [id number] Violet Mack Notes Date Note Type Note Provider Name and Address Organization Details Recorded Time 09/25/2023 text/html Addendum: 01/15/2024: 09/25/2023: Here to establish care Present Hx: ADHD Allergies Tachycardia Hypertrophy of vulva DMII LUIS MANUEL Here to discuss above Hernan Madden MD [address] [facility] [facility] [address], [place], [address], [facility] [employer] 01/15/2024 12:00:21 12/26/2023 text/html Primary care/Referring provider: [...] up from lying position Modified [employer] [place] (mMRC) Dyspnea Scale - Grade 2 Grade [...] Edema: no Environmental exposures: Nicotine smoke: no [place]: no Dye: no Dust mites: yes Mold: no Damp basement: no Wood burning stove: no Animal dander: dog Cockroaches: no Pollen: yes Arsenic: no Asbestos: no Beryllium: no Cadmium: no Chromium: no [place]awnee smoke: no Diesel fumes: no Nickel: no [...] no chance of dozing. Gray Zeng MD [address], [place], [address], [facility] 12/26/2023 13:04:09 01/15/2024 text/html 09/25/2023: Here to establish care Present Hx: ADHD Allergies Tachycardia Hypertrophy of vulva DMII LUIS MANUEL Here to discuss aboveOV 01/15/2024:Here for her f/u apt, she is doing well, she is here with her mother, she does have a rash from working in the yard and feels that 'bugs bit' herShe has no new labsShe has seen her cell technician, and her OB and is now not taking any GLP-1 as it interferes with her OC and caused her to get excessive mensesShe would also like to get another apt with Dr Graham as she has noted increasing fawn hip pain, she was offered steroid shots in the past Hernan Madden MD [address], [place], [address], [facility] 01/15/2024 12:45:41 02/21/2024 text/html 09/25/2023: Here to establish care Present Hx: ADHD Allergies Tachycardia Hypertrophy of vulva DMII LUIS MANUEL Here to discuss aboveOV 01/15/2024:Here for her f/u apt, she is doing well, she is here with her mother, she does have a rash from working in the yard and feels that 'bugs bit' herShe has no new labsShe has seen her cell technician, and her OB and is now not [...] chest pain today Hernan Madden MD [address], [place], [address], [employer] 02/21/2024 17:26:16 04/23/2024 text/html 09/25/2023: Here to establish care Present Hx: ADHD Allergies Tachycardia Hypertrophy of vulva DMII LUIS MANUEL Here to discuss aboveOV 01/15/2024:Here for her f/u apt, she is doing well, she is here with her mother, she does have a rash from working in the yard and feels that 'bugs bit' herShe has no new labsShe has seen her cell technician, and her OB and is now not [...] do the labs Hernan Madden MD [address], [place], [address], [employer] 04/28/2024 14:54:05 OBGyn Episode No OBEpisode recorded.
--- OUTSIDE RECORDS SUMMARY | 2024-12-03 16:23 | XMS_ITS ---
Author Organization [facility] [employer] Address [address] [place] [address] Care Team Providers Care Ship Pilot Name Role Phone Maryanne COLLADO, Hernan Primary Care Provider Un available Tian Frazier Unavailable [phone] REASON FOR VISIT R/S due to being sick, could not do tele Social History Sex Assigned At : Social History Observation Description Sex Assigned At Female Encounters Encounter Location Date Provider Diagnosis [facility] [address] [place] [address] 12/02/2024 Tian Frazier Plan Of Treatment Next Appt Details Provider Name:Tian tapia, 12/10/2024 04:30:00 PM, [address], [place], [address], Progress Notes * BIANKA WESTLEYANGELINAOB:2000 (24 yo F)Acc No.[id number]:12/02/2024 Patient: MARY KELLYN Provider: GERALD CHANDRA :2000 A ge:24 Y S ex:Female Date:12/02/2024 Address:[facility] [address] [facility] Pcp:Hernan Madden MD Subjective: * Chief Complaints: * 1 . R/S due to being sick, could not do tele. * Medical History: Objective: * Vitals: Assessment: Plan: * Treatment: * Billing Information: * Visit Code: * Procedure Codes: * Electronic signature of GERALD Lopez on 12/03/2024 at 04:22 PM CDT Sign off status: Pending * Provider: GERALD CHANDRA Date: 12/02/2024 Generated for Marti bermeo/Mao/Nahid on: 12/03/2024 04:22 PM CDT
--- OUTSIDE RECORDS SUMMARY | 2024-12-03 16:23 | XMS_ITS | Patient Health Record ---
Author Organization [employer] [facility] Address [address] [address] Care Team Providers Care Automatic Quilling Machine Operator Name Role Phone Cici Fuller Primary Care Provider [phone] Allergies Allergen (clinical drug ingredient) Drug/Non Drug Allergy documented on EMR Reaction Allergy Type Onset Date Status Z PACK (uncoded) Unknown Allergy Act jae Pepper PEPPER (uncoded) Unknown Allergy Act jae Results Component Value Reference Range Notes COMPREHENSIVE METABOLIC PANE L Reviewed date:05/17/2024 01:39:32 PM Interpretation: Performing Lab:KS, [facility], [address], [place], [address] Ebenezer Banks MD Notes/Report: VITAMIN D, 25-HYDROXY, LC/MS /MS Reviewed date:05/17/2024 01:59:29 PM Interpretation: Performing Lab:KS, [facility], [address], [place], [address] Ebenezer Banks MD Notes/Report: ACTH, PLASMA Reviewed date:05/21/2024 09:55:19 PM Interpretation: Performing Lab:AMD, [facility], [address], [place], [address] Chadwick Underwood M.D.,PhD Notes/Report: T3, FREE Reviewed date:05/17/2024 01:59:36 PM Interpretation: Performing Lab:KS, [facility], [address], [place], [address] Ebenezer Banks MD Notes/Report: CORTISOL, TOTAL Reviewed date:05/17/2024 02:05:26 PM Interpretation: Performing Lab:KS, [facility], [address], [place], [address] Ebenezer Banks MD Notes/Report: DHEA SULFATE Reviewed date:05/17/2024 02:05:44 PM Interpretation: Performing Lab:KS, [facility], [address], [place], [address] Ebenezer Banks MD Notes/Report: ESTRADIOL Reviewed date:05/17/2024 01:59:50 PM Interpretation: Performing Lab:KS, [facility], [address], [place], [address] Ebenezer Banks MD Notes/Report: FSH Reviewed date:05/17/2024 02:05:53 PM Interpretation: Performing Lab:KS, [facility], [address], [place], [address] Ebenezer Banks MD Notes/Report: HEMOGLOBIN A1c Reviewed date:05/17/2024 01:59:21 PM Interpretation: Performing Lab:[facility], [address], [place], [address] Ebenezer Banks Notes/Report: INSULIN Reviewed date:05/17/2024 02:06:08 PM Interpretation: Performing Lab:KS, [facility], [address], [place], [address] Ebenezer Banks MD Notes/Report: LH Reviewed date:05/17/2024 02:06:01 PM Interpretation: Performing Lab:KS, [facility], [address], [place], [address] Ebenezer Banks MD Notes/Report: MAGNESIUM Reviewed date:05/17/2024 01:39:49 PM Interpretation: Performing Lab:KS, [facility], [address], [place], [address] Ebenezer Banks MD Notes/Report: CBC (INCLUDES DIFF/PLT) Reviewed date:05/17/2024 01:31:12 PM Interpretation: Performing Lab:KS, [facility], [address], [place], [address] Ebenezer Banks MD Notes/Report: MICROALBUMIN, RANDOM URINE ( W/CREATININE) Reviewed date:05/17/2024 01:39:16 PM Interpretation: Performing Lab:JOHN, [facility], [address], [place], [address] Ebenezer Banks MD Notes/Report: VITAMIN B12/FOLATE, SERUM PA CHA Reviewed date:05/17/2024 01:59:43 PM Interpretation: Performing Lab:[facility], [address], [place], [address] Ebenezer Banks MD Notes/Report: PROGESTERONE Reviewed date:05/17/2024 02:00:13 PM Interpretation: Performing Lab:[facility], [address], [place], [address] Ebenezer Banks MD Notes/Report: IRON AND TOTAL IRON BINDING CAPACITY Reviewed date:05/17/2024 01:39:41 PM Interpretation: Performing Lab:[facility], [address], [place], [address] Ebenezer Banks MD Notes/Report: LIPID PANEL Reviewed date:05/17/2024 01:39:59 PM Interpretation: Performing Lab:[facility], [address], [place], [address] Ebenezer Banks MD Notes/Report: T4, FREE Reviewed date:05/17/2024 01:59:57 PM Interpretation: Performing Lab:[facility], [address], [place], [address] Ebenezer Banks MD Notes/Report: TSH Reviewed date:05/17/2024 02:00:05 PM Interpretation: Performing Lab:JOHN, [facility], [address], [place], [address] Ebenezer Banks MD Notes/Report: THYROID PEROXIDASE ANTIBODIE S Reviewed date:05/17/2024 02:05:36 PM Interpretation: Performing Lab:CB, [facility], [address] [place], [address] Paresh Lee Notes/Report: THYROID PEROXIDASE ANTIBODIES <1 <9 IU/mL TESTOSTERONE, FREE (DIALYSIS ) AND TOTAL,MS Reviewed date:05/17/2024 01:57:16 PM Interpretation: Performing Lab:Z3E, [facility], [address] [facility] [address], [place], [address] Chanel Mcfadden MD,PhD Notes/Report: TESTOSTERONE, TOTAL, MS 19 2-45 ng/dL For additional information, please refer to https://education.[employer].com/faq/YXT151 (This link is being provided for informational/educational purposes only.) (Note) This test was developed and its analytical performance characteristics have been determined by [employer]. It has not been cleared or approved by the FDA. This assay has been validated pursuant to the CLIA regulations and is used for clinical purposes. TESTOSTERONE, FREE 4.5 0.1-6.4 pg/mL (Note) This test was developed and its analytical performance characteristics have been determined by [employer]. It has not been cleared or approved by the FDA. This assay has been validated pursuant to the CLIA regulations and is used for clinical purposes. 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 Problem Irregular menstruation (40551156) Irregular menstruation, unspecified (N92.6) Active confirmed Vital Signs Heart Rate 82 /min 06/09/2024 Blood pressure diastolic 70 mm Hg 06/09/2024 Height 66 in 06/09/2024 Blood pressure systolic 110 mm Hg 06/09/2024 Weight 180 lbs 06/09/2024 BMI 29.05 kg/m2 06/09/2024 Encounters Encounter Location Date Provider Diagnosis [facility] Cicimiguel Fuller [address] [place] [address] 05/08/2024 Cici Fuller Type 2 diabetes elle itus with hyperglycemia E11.65 ; Other fatigue R53.83 ; Obesity, unspecified E66.9 ; Encounter for screening for lipoid disorders Z13.220 ; Irregular menstruation, unspecified N92.6 ; Vitamin D deficiency, unspecified E55.9 and Nontoxic goiter, unspecified E04.9 [facility] Cicimiguel Fuller [address] [place] [address] 06/09/2024 Cici Fuller Type 2 diabetes elle [...] EpiPen if needed. Consider referral to an marketer for further evaluation and management. 5. Insomnia:- [...] evaluation.- Plan: Provide options for imaging centers ([facility], [facility], or [place]). Schedule imaging appointments and follow up with results. Spent 45 minutes preparing to see the patient (ex review of tests/chart), obtaining and / or reviewing separately obtained history, performing a medically appropriate examination and/or evaluation, counseling and educating the patient/family/care management associate, ordering medications, tests, or procedures, referring and communicating with other health respiratory care technician, documenting clinical information in the electronic or other health record, independently interpreting results and communicating results to the patient/family/care management associate and care coordinating patient plan. Patient alert [...] D deficiency- Low vitamin D levelsPlan:- Recommend [id number]-[id number] vitamin D supplement once daily 6. Iron [...] evaluation, counseling and educating the patient/family/care management associate, ordering medications, tests, or procedures, referring and communicating with other health respiratory care technician, documenting clinical information in the electronic or other health record, independently interpreting results and communicating results to the patient/family/care management associate and care coordinating patient plan. Patient alert [...] Insured Coverage Start Date Coverage End Date S Medicare Part B [place] Claims Department [address] [address] [place] [address] [id number] Violet Lomeli Self - patient is the insured [employer] [place] [id number] [employer] [facility] [place] [address] [id number] Violet Lomeli Self - patient is the insured Medical (General) History Medical History History ICD Code TACHICARDIA DIABETIES Surgical History Surgery Date(Month/Year) 3 BACK SURGRIES
--- OUTSIDE RECORDS SUMMARY | 2024-12-03 16:24 | XMS_ITS | Clinical Summary ---
Author Organization [facility] Address [address] [place] [address] Care Team Providers Care Filter Press Tender Name Role Phone Unavailable Primary Care Provider Unavailabl e Source Comments [facility],non-owned Affiliates and Associated Physician Practices is amultiple site organization consisting of ambulatory clinics and hospital sitesin [place], [place], [place] and [place]. This disclosure is being madepursuant to the Care Everywhere program and may not contain all information available regarding this patient. Last updated 18.[facility] Allergies Active Allergy Reactions Criticality Noted Date Comments Advil Cold-Sinus Itching 11/28/2024 Blue Dyes Itching 12/01/2024 Chlorpheniramine Urticaria,Itching Medium 12/27/2015 chlortimatime Guaifenesin Urticaria,Itching Medium 11/28/2024 Ibuprofen Itching 12/01/2024 Red dye Tirzepatide Other 11/28/2024 Vaginal bleeding Semaglutide Diarrhea,Nausea and/ or Vomiting 11/28/2024 Piper Longum Anaphylaxis High 05/31/2023 White pepper Pseudoephedrine Base Other 12/02/2024 Nose ozuna Red Dye Itching 11/28/2024 Azithromycin Urticaria Medium 08/18/2019 Medications * Be aware that medications may not be up to date on this document. Alwaysverify current medications with the patient. triamcinolone acetonide (KENALOG) 0.1 % ointment ALEJANDRA EXT AA BID 02/26/20 19 Active cetirizine (ZyrTEC) 10 MG tablet Take 1 (one) tablet by mouth once daily Active acetaminophen (Tylenol) 325 MG tablet Take by mouth every 4 hours as needed for Fever or Pain Maximum allowable Acetaminophen amount = 4 Grams (4000 mg) / 24 hours. Active polyethylene glycol 3350 (Miralax) 17 GM/SCOOP powder Take 17 (seventeen) g by mouth once daily Active ondansetron, disintegrating, (Zofran ODT) 4 MG tablet Take 1 (one) tablet by mouth every 6 hours as needed for Nausea/Vomiting 11/12/19 25 Active pyridoxine (Vitamin B-6) 25 MG tablet Take 2 (two) tablets by mouth 4 times daily Active blood glucose test stripIndication s: complicated by pre-existing type 2 diabetes in first trimester ([facility]) Use 1 (one) strip as directed 100 strip 11/25/19 25 Active lancetsIndicati ons: complicated by pre-existing type 2 diabetes in first trimester ([facility]) Use 1 (one) Each 4 times daily 100 Each 5 11/25/19 25 Active plus iron (Natatab) 29-1 MG tablet Take 1 (one) tablet by mouth once daily 30 tablet 5 11/25/19 25 Active albuterol HFA (ProAir HFA) 108 (90 Base) MCG/ACT inhaler Inhale 2 (two) puffs by mouth every 4 hours as needed 8.5 g 11/25/19 25 Active EPINEPHrine (Epipen) 0.3 MG/0.3ML auto-injector pen Inject 0.3 mL into muscle once as needed for Anaphylaxis 0.6 mL 1 11/25/19 25 Active Additional Information Patient not taking.Reported on 12/01/2024 Glucagon (Gvoke HypoPen 1-Pack) 0.5 MG/0.1ML SOAJ Inject 1 Each subcutaneously as needed 0.1 mL 11/27/19 25 Active Additional Information Patient not taking.Reason: Patient adjusted (Unable to medicinal plant picker from pharmacy), Reported on 12/01/2024 budesonide-form oterol (Symbicort) 160-4.5 MCG/ACT inhaler Inhale 2 (two) puffs by mouth 2 times daily 10.2 g 3 12/02/19 25 Active Basaglar KwikPen (Basaglar) pen Inject 14 units every AM and 14 units every PM. Space doses 12 hours apart. Increase dose as directed during . Max total daily dose = 50 units. 15 mL 5 12/02/19 25 Active glucagon (Glucagen) injection Inject 1 (one) mg into muscle as needed 1 Each 12/02/19 25 Active omeprazole (PriLOSEC) 20 MG capsule Take 1 (one) capsule by mouth daily before breakfast Active lamoTRIgine (LaMICtal) 100 MG tablet Take 1 (one) tablet by mouth 2 times daily Active ivabradine (Corlanor) 5 MG tablet Take 1 (one) tablet by mouth 2 times daily with morning and evening meal Active venlafaxine XR 24hr (Effexor XR) 75 MG capsule Take 1 (one) capsule by mouth daily with breakfast Active dexmethylphenid ate (FOCALIN) 10 MG tablet TK PO 1 T QAM AND 1 T AT NOON 0 12/18/19 16 Discontinu ed(List Clean-Up) PROAIR HFA 108 (90 BASE) MCG/ACT inhaler USE 2 PUFFS PO Q 4 TO 6 H PRN. 2 12/02/19 16 Discontinu ed(List Clean-Up) LORazepam (ATIVAN) 0.5 MG tablet Take 0.5 mg by mouth once daily Discontinu ed(List Clean-Up) levonorgestrel- ethinyl estradiol (ASHLYNA) 0.15-0.03 &0.01 MG tablet Take 1 tablet by mouth once daily Discontinu ed(List Clean-Up) dexmethylphenid ate (FOCALIN) 5 MG tablet Take 5 mg by mouth Every morning and lunchtime Discontinu ed(List Clean-Up) Vit-Fe Fumarate-FA ( VITAMIN) 28-0.8 MG tablet Take 1 (one) tablet by mouth once daily Discontinu ed(List Clean-Up) diphenhydrAMINE (BENADRYL) 25 MG capsule Take 1 (one) capsule by mouth every 4 hours as needed for Itching Discontinu ed(List Clean-Up) Blood Glucose Monitoring Suppl (CanoPIO IQ SYSTEM) w/Device KIT Use 1 kit as directed 1 kit 06/02/20 19 06/09/2 025 Discontinu ed(List Clean-Up) blood glucose (ONETOUCH VERIO) test strip Use to test blood sugars before breakfast, after lunch and before dinner. 200 strip 5 06/02/20 19 025 Discontinu ed(List Clean-Up) One Touch Delica Lancets Use 5-9 lancets daily 200 Each 11 06/02/20 19 025 Discontinu ed(List Clean-Up) esomeprazole (NEXIUM) 20 MG capsule Take 20 mg by mouth daily before breakfast 025 Discontinu ed(List Clean-Up) lansoprazole (PREVACID) 30 MG capsule Take 1 capsule by mouth 2 times daily, before breakfast and supper 30 capsule 3 12/26/19 20 025 Discontinu ed(List Clean-Up) Blood Glucose Monitoring Suppl (ONETOUCH VERIO FLEX SYSTEM) w/Device KIT Use 1 kit as directed 1 kit 2 01/27/20 20 025 Discontinu ed(List Clean-Up) NovoLOG FLEXPEN pen 5 units three times a day before meals and 4 units with meals + sliding scale as need 11/15/19 25 025 Discontinu ed(List Clean-Up) Basaglar KwikPen (Basaglar) pen Inject subcutaneously 2 times daily 10 units in the morning and 12 units in the evening 11/15/19 25 025 Discontinu ed(Reorder ) metFORMIN ER 24hr (Glucophage XR) 500 MG tablet Take 2 (two) tablets by mouth daily with food 03/11/20 24 025 Discontinu ed(List Clean-Up) Blood Glucose Monitoring Suppl (Blood Glucose Monitor System) w/Device KITIndications: complicated by pre-existing type 2 diabetes in first trimester (HCC) Use 1 Each once for 1 dose 1 Each 11/25/19 25 Glucagon (Baqsimi One Pack) 3 MG/DOSE POWD Bernice 1 Each into the nose as needed 1 Each 11/25/19 25 025 Discontinu ed(List Clean-Up) Active Problems Problem Noted Date Diagnosed Date Supervision of high risk , antepartum 0 11/25/2024 T2DM (type 2 diabetes mellitus) 11/25/2024 Asthma affecting , antepartum Depression with anxiety 11/25/2024 History of back surgery 11/25/2024 History of scoliosis 11/25/2024 ADHD 11/25/2024 Learning disorder 11/25/2024 Esophagitis 11/25/2024 Marijuana use 11/25/2024 High cholesterol 11/25/2024 Elevated hemoglobin A1c 06/19/2019 Overview (06/19/2019): A1c consistent with diabetes mellitus, not clearly determined as type 1 or type 2. C-peptide is normal, LUIS MANUEL negative, IA-2 negative. Currently treating with dietary changes. Estimated Date of Delivery Comme nts Yes 06/29/2025 Based on Ultraso und Encounters Date Type Department Care Team Description 12/03/2024 Results Follow-Up [facility]/ EVALUATION UNIT [address] [place] [address] Castillo Shah MD 12/03/2024 Orders Only [facility] PHYS OB [address] [place] [address] Castillo Shah MD 12/01/2024 10:00 AM CDT Hospital Encounter [facility]/ EVALUATION UNIT [address] [place] [address] Sourav Jaimes MD Discharge Disposition: Home or Self Care 12/01/2024 10:00 AM CDT Hospital Encounter [facility]/ EVALUATION UNIT [address] [place] [address] Sourav Jaimes MD Discharge Disposition: Home or Self Care 12/01/2024 10:00 AM CDT Hospital Encounter [facility]/ EVALUATION UNIT [address] [place] [address] Sourav Jaimes MD Discharge Disposition: Home or Self Care 12/01/2024 Travel 11/28/2024 Orders Only [facility]/ EVALUATION UNIT [address] [place] [address] Garrett Ramirez PharmD 11/27/2024 Results Follow-Up [facility]/ EVALUATION UNIT [address] [place] [address] Ck Bansal MD 11/27/2024 Telephone [facility]/ EVALUATION UNIT [address] [place] [address] Ck Bansal MD Results 11/24/2024 8:14 AM CDT - 11/24/2024 11:59 PM CDT Hospital Encounter [facility]/ EVALUATION UNIT [address] [place] [address] Anna Alvarado MD Discharge Disposition: Home or Self Care 11/24/2024 8:12 AM CDT - 11/24/2024 8:13 AM CDT Hospital Encounter [facility] MAT[facility]/ EVALUATION UNIT [address] [place] [address] Anna Alvarado MD Discharge Disposition: Home or Self Care 11/24/2024 8:11 AM CDT Hospital Encounter [facility]/ EVALUATION UNIT [address] [place] [address] Anna Alvarado MD Discharge Disposition: Home or Self Care 11/24/2024 8:09 AM CDT - 11/24/2024 8:10 AM CDT Hospital Encounter [facility] MATER[facility]/ EVALUATION UNIT [address] [place] [address] Harpreet Alvares DO Discharge Disposition: Home or Self Care 11/24/2024 Travel 11/17/2024 Telephone [facility]/ EVALUATION UNIT [address] [place] [address] Glenna Snell, consulting engineer 11/14/2024 Telephone [facility]/ EVALUATION UNIT [address] [place] [address] Alma Temple, consulting engineer from Last 3 Months Immunizations Immunization Administration Dates Next Due COVID ALAN PRIMARY 18+YR 09/22/2020 COVID PFIZER 12+YR 30MCG/0.3mL 04/03/2023 Covid Pfizer primary monoval ent 12+ yr 0.3mL Purple cap 06/24/2021 DTaP VACCINE IM (6wk-6yrs) 12/24/2006,,2001,10/22,2001 FLU, HISTORIC VACCINE 05/23/2010,03/12/2009 HEP A PED/ADULT VACCINE 12/24/2006 HEP A PEDS 2 DOSE 09/24/2007 HEP B VACCINE, PED/ADOL 03/28/2002,2001 HIB Hep B 2001 HIB VACCINE 2001,2001 Human Papilloma Virus Nineva lent Vaccine 03/11/2021,10/06/2020,09/06/2020 INFLUENZA VACCINE, CELL CULT URE, QUADR. (FLUCELVAX QUADRIVALENT; 6MO+) (CCIIV4) 04/03/2023 INFLUENZA VACCINE, QUADR. (A FLURIA, FLUZONE QUADRIVALENT; 6MO+) (IIV4) 05/28/2018 INFLUENZA VACCINE, QUADR. (F LUZONE; FLULAVAL; FLUARIX; AFLURIA QUADRIVALENT; 6MO+), 0.5 ML (IIV4) 04/04/2021,04/26/2020,05/28/2017 INFLUENZA VACCINE, TRIV. (FL UZONE; FLULAVAL; FLUARIX; AFLURIA TRIVALENT; 6MO+), 0.5 ML (IIV3) 04/23/2024 MENINGOCOCCAL ACWY MENVEO 12/21/2017,12/17/2015 MMR VACCINE 08/04/2002 MMR/VARICELLA 12/24/2006 Meningococcal B Recombinant 2 Dose, IM 8,12/21/2017 PNEUMOCOCCAL PCV20 CONJ VAC IM 12/28/2021 PNEUMOCOCCAL PCV7 CONJ, PEDS 2001,10/23/19 02,2001 POLIO IPV 12/24/2006, 3,2001,08/20 TDAP, HISTORIC VACCINE 11/18/2012 VARICELLA 08/04/2002 Family History Medical History Relation Name Comments [...] care, and heating? Not very hard 11/24/2024 [facility] - Occupational Stress Questionnaire Answer Date Recorded [...] things needed for daily living? No 11/24/2024 [place] Depression Scale Answer Date Recorded [place] Depression Scale Total 2 11/24/2024 The thought [...] any time in the past 12 m [facility], were you homeless or living in a skilled nursing (including now)? No 11/24/2024 Estimated Date of Delivery Comme nts Yes 06/29/2025 Based on Ultraso und Sex and Gender Information Value Date Recorded Sex Assigned at Not on file Legal Sex Female 5:45 AM MANAGER ZONE Gender Identity Not on file Sexual Orientation Not on file Last Filed Vital Signs Vital Sign Reading Time Taken Comments Blood Pressure 98/64 12/01/2024 10:15 AM CDT Pulse 88 12/01/2024 10:15 AM CDT Temperature 36.9 C (98.4 F) 12/26/2019 11:09 AM CDT Respiratory Rate 20 12/26/2019 11:50 AM CDT Oxygen Saturation 97% 12/26/2019 11:50 AM CDT Inhaled Oxygen Concentration 100% 12/26/2019 1 1:18 AM CDT Weight 76.7 kg (169 lb 3.2 oz) 12/01/2024 10:15 AM CDT Height 167.6 cm (5' 6) 12/01/2024 10:15 AM CDT Body Mass Index 27.31 12/01/2024 10:15 AM CDT Plan of Treatment Upcoming Encounters Date Type Department Care Team (Late st Contact Info) Description 12/08/2024 11:00 AM CDT Appointment [facility]/ EVALUATION UNIT [address] [place], [place] [address] [place] [address] 12/08/2024 11:30 AM CDT Appointment [facility]/ EVALUATION UNIT [address] [place] [address] [address] [place] [address] 02/09/2025 10:30 AM CDT Appointment [facility]/ EVALUATION UNIT [address] [place], [place] [address] [place] [address] Health Maintenance Due Date Last Done Comments MEDICARE AWV 12 MONTHS 2001 DTAP/TDAP/TD VACCINES (7 - Td or Tdap) 11/18/2022 11/18/2012, 12/24/2006, 08/04/2002, Additional history exists COVID-19 VACCINE ( season) 2024 04/03/2023, 06/24/2021, 09/22/2020 DIABETES RETINOPATHY SCREENING 11/25/2024 DIABETES-FOOT EXAM WITH MONOFILAMENT 11/25/2024 OB-TDAP CURRENT 03/30/2025 11/18/2012 Respiratory Syncytial Virus (RSV) Vaccine Pt: or over 60 yrs (1 - Risk 1-dose series) 05/04/2025 DIABETES-HGB A1C 05/26/2025 11/24/2024, , 06/20/2019 CHLAMYDIA/GONORRHEA SCREENING 11/24/2025 11/24/2024 DIABETES - URINE PROTEIN SCREENING 12/01/2025 12/01/2024 DIABETES-SERUM CREATININE 12/01/2025 12/01/2024, PAP SMEAR 11/25/2027 11/24/2024 ZOSTER VACCINE (1 of 2) 2051 HIB VACCINE Aged Out 2001, 12/2001, 2001 No longer eligible based on patient's age to complete this topic HEPATITIS B VACCINE Completed 03/28/2002, 2001, 2001 MENINGOCOCCAL GROUPS A/C/Y/W VACCINE Completed 12/21/2017, 12/17/2015 MENINGOCOCCAL (Group B) VACCINE SHARED DECISION-MAKING Completed 02/26/2018, 12/21/2017 HPV VACCINE Completed 03/11/2021, 04/06/2020, 09/06/2020 PNEUMOCOCCAL VACCINE Completed 12/28/2021, 2001, 2001, Additional history exists INFLUENZA VACCINE Completed 04/23/2024, , 04/04/2021, Additional history exists DEPRESSION SCREENING Completed 11/24/2024 HEPATITIS C SCREENING Completed 11/24/2024 HIV SCREENING Completed 11/24/2024 Procedures Procedure Name Priority Date/Time Associated Diagnosis Comments CBC W/O DIFFERENTIAL STAT 12/01/2024 12:24 PM CDT Type 2 diabetes mellitus without complication, unspecified whether parts counterman insulin use (HCC) URINALYSIS REFLEX MICROSCOPIC REFLEX CULTURE STAT 12/01/2024 12:24 PM CDT Type 2 diabetes mellitus without complication, unspecified whether skilled nursing insulin use (HCC) COMPREHENSIVE METABOLIC PANEL STAT 12/01/2024 12:24 PM CDT Type 2 diabetes mellitus without complication, unspecified whether parts counterman insulin use (HCC) PROTEIN CREATININE RATIO URINE RANDOM PNL STAT 12/01/2024 12:24 PM CDT Type 2 diabetes mellitus without complication, unspecified whether skilled nursing insulin use (HCC) CULTURE URINE STAT 12/01/2024 12:24 PM CDT Type 2 diabetes mellitus without complication, unspecified whether parts counterman insulin use (HCC) PROTEIN URINE TIMED QUANTITATIVE Routine 12/01/2024 10:13 AM CDT Supervision of high risk , antepartum (HCC) URINALYSIS - POCT (IP) BEAKER INTERFACE Routine 12/01/2024 10:11 AM CDT PAP IG LB RFLX HPV APTIMA ASCU Routine 11/24/2024 11:20 AM CDT Supervision of high risk , antepartum (HCC) URINE DRUG SCREEN IMMUNOASSAY Routine 11/24/2024 11:20 AM CDT Supervision of high risk , antepartum (HCC) CULTURE URINE Routine 11/24/2024 11:20 AM CDT Supervision of high risk , antepartum (HCC) TRICHOMONAS VAGINALIS IRA Routine 11/24/2024 11:20 AM CDT Supervision of high risk , antepartum (HCC) CHLAMYDIA AND N. GONORRHOEAE IRA Routine 11/24/2024 11:20 AM CDT Supervision of high risk , antepartum (HCC) TYPE + SCREEN PANEL Routine 11/24/2024 1 1:19 AM CDT Supervision of high risk , antepartum (HCC) RUBELLA ANTIBODY IGG Routine 11/24/2024 11:19 AM CDT Supervision of high risk , antepartum (HCC) SYPHILIS ANTIBODY CASCADING REFLEX Routine 11/24/2024 11:19 AM CDT Supervision of high risk , antepartum (HCC) CBC W AUTO DIFFERENTIAL Routine 11/25/19 11:19 AM CDT Supervision of high risk , antepartum (HCC) HEPATITIS B SURFACE ANTIGEN W RFLX CONFIRMATION Routine 11/24/2024 11:19 AM CDT Supervision of high risk , antepartum (HCC) HEMOGLOBIN A1C Routine 11/24/2024 11:19 AM CDT Supervision of high risk , antepartum (HCC) SPINAL MUSCULAR ATROPHY CARRIER Routine 11/24/2024 11:19 AM CDT Supervision of high risk , antepartum (HCC) HIV-1 HIV-2 ANTIBODY + HIV P24 AG PANEL Routine 11/24/2024 11:19 AM CDT Supervision of high risk , antepartum (HCC) HEMOGLOBINOPATHY FRACTIONATION CASCADE Routine 11/24/2024 11:19 AM CDT Supervision of high risk , antepartum (HCC) HEPATITIS C ANTIBODY Routine 11/24/2024 11:19 AM CDT Supervision of high risk , antepartum (HCC) CYSTIC FIBROSIS (CF) 97 VARIANTS Routine 11/24/2024 11:19 AM CDT Supervision of high risk , antepartum (HCC) HEPATITIS B SURFACE ANTIGEN W RFLX CONFIRMATION Routine 11/24/2024 11:19 AM CDT Supervision of high risk , antepartum (HCC) FERRITIN Routine 11/24/2024 11:19 AM CDT Supervision of high risk , antepartum (HCC) GLUCOSE - POINT OF CARE Routine 11/25/19 25 10:29 AM CDT URINALYSIS - POCT (IP) BEAKER INTERFACE Routine 11/24/2024 9:21 AM CDT SONOGRAM - COMPLETE Routine 11/24/2024 8 :32 AM CDT from Last 3 Months Results * (ABNORMAL) URINALYSIS REFLEX MICROSCOPIC REFLEX CULTURE (12/01/2024 12:24 PM CDT) Color UA Yellow Yellow, Straw 12/01/2024 1:34 PM CDT [facility] Clarity UA Clear Clear 12/01/2024 1:34 PM CDT [facility] Glucose UA Normal Normal 12/01/2024 1:34 PM CDT [facility] Bilirubin UA Negative Negative 12/01/2024 1:34 PM CDT [facility] Ketone UA Negative Negative 12/01/2024 1:34 PM CDT [facility] Specific [place] UA 1.024 1.005 - 1.030 12/01/2024 1:34 PM CDT [facility] Blood UA Negative Negative 12/01/2024 1:34 PM CDT [facility] pH UA 6.5 5.0 - 8.0 12/01/2024 1:34 PM CDT [facility] Protein UA Negative Negative 12/01/2024 1:34 PM CDT [facility] Urobilinogen UA Normal Normal mg/dL 12/01/2024 1:34 PM CDT [facility] Nitrite UA Negative Negative 12/01/2024 1:34 PM CDT [facility] Leukocyte Esterase UA 25 GOPAL/uL(A) Negative 12/01/2024 1:34 PM CDT [facility] RBC UA 3-5 0 - 5 # /hpf 12/01/2024 1:34 PM CDT [facility] WBC UA 0-5 0 - 5 # /hpf 12/01/2024 1:34 PM CDT [facility] Bacteria UA Trace(A) None Seen 12/01/2024 1:34 PM CDT [facility] Squamous Epithelial Cells 3-5 0 - 5 /hpf 12/01/2024 1:34 PM CDT [facility] Mucus UA 2+ /LPF 12/01/2024 1:34 PM CDT [facility] Hyaline Casts 0-2 0 - 2 /LPF 12/01/2024 1:34 PM CDT [facility] Reflex Status Culture to follow 12/01/2024 1:34 PM CDT [facility] Urine URINE SPECIMEN OBTAINED BY CLEAN CATCH PROCEDURE / Unknown Collection / Unknown 12/01/2024 12:24 PM CDT 12/01/2024 1:24 PM CDT Narrative [facility] - 12/01/2024 1:34 PM CDT us Sourav Jaimes MD LAB - URINALYSIS ORDERABLES Fin al Result Performing Organization Address [facility]/ZIP Co de Phone Number [facility] [address] [place] [address] * (ABNORMAL) CULTURE URINE (12/01/2024 12:24 PM CDT) Only the most recent of2 resultswithin the time period is included. Culture Urine 10,000-50,000 CFU/mL Streptococcus agalactiae (Group B)(A) 12/03/2024 4:20 AM CDT [facility] Culture Urine <10,000 CFU/mL urogenital khloe 12/03/2024 4:20 AM CDT [facility] Urine URINE SPECIMEN OBTAINED BY CLEAN CATCH PROCEDURE / Unknown Collection / Unknown 12/01/2024 12:24 PM CDT 12/01/2024 1:24 PM CDT Narrative [facility] - 12/03/2024 4:20 AM CDT Susceptibility testing of penicillin, other beta-lactam antibiotics, and vancomycin is not necessary for beta-hemolytic streptococci groups A,B,C and G because resistant strains have not been recognized. Sourav Jaimes MD LAB - MICROBIOLOGY ORDERABLES F inal Result Performing Organization Address [facility] Co de Phone Number [facility] [address] [phone] * (ABNORMAL) CBC W/O DIFFERENTIAL (12/01/2024 12:24 PM CDT) WBC 9.4 4.0 - 10.7 x10E9/L 12/01/2024 2:46 PM CDT [facility] RBC Count 4.09 3.90 - 5.20 x10E12/L 12/01/2024 2:46 PM CDT [facility] Hemoglobin 11.7(L) 11.9 - 15.8 g/dL 12/01/2024 2:46 PM CDT [facility] Hematocrit 36.5 34.8 - 46.1 % 12/01/2024 2:46 PM CDT [facility] MCV 89.2 80.0 - 98.0 fL 12/01/2024 2:46 PM CDT [facility] MCH 28.6 26.7 - 33.6 pg 12/01/2024 2:46 PM CDT [facility] MCHC 32.1 31.7 - 36.3 g/dL 12/01/2024 2:46 PM CDT [facility] RDW-CV 12.8 11.3 - 14.8 % 12/01/2024 2:46 PM CDT [facility] Platelet Count 283 150 - 420 x10E9/L 12/01/2024 2:46 PM CDT [facility] MPV 10.0 7.8 - 11.4 fL 12/01/2024 2:46 PM CDT [facility] Blood BLOOD SPECIMEN / Unknown Venipuncture / Unknown 12/01/2024 12:24 PM CDT 12/01/2024 1:58 PM CDT Sourav Jaimes MD LAB - HEMATOLOGY ORDERABLES Fin al Result [facility] [address] [place] [address] * (ABNORMAL) COMPREHENSIVE METABOLIC PANEL (12/01/2024 12:24 PM CDT) Glucose 88 70 - 99 mg/dL 12/01/2024 2:30 PM CDT [facility] Sodium 137 136 - 145 mmol/L 12/01/2024 2:30 PM CDT [facility] Potassium 4.4 3.5 - 5.1 mmol/L 12/01/2024 2:30 PM CDT [facility] Chloride 109(H) 98 - 107 mmol/L 12/01/2024 2:30 PM CDT [facility] CO2 19(L) 22 - 29 mmol/L 12/01/2024 2:30 PM CDT [facility] Calcium 9.4 8.4 - 10.4 mg/dL 12/01/2024 2:30 PM CDT [facility] Anion Gap 9 6 - 16 mmol/L 12/01/2024 2:30 PM CDT [facility] BUN 7 5.3 - 18.7 mg/dL 12/01/2024 2:30 PM CDT [facility] Creatinine 0.57 0.57 - 1.11 mg/dL 12/01/2024 2:30 PM CDT [facility] Alkaline Phosphatase 53 40 - 150 U/L 12/01/2024 2:30 PM CDT [facility] ALT 10 6 - 57 U/L 12/01/2024 2:30 PM CDT [facility] AST 28 10 - 48 U/L 12/01/2024 2:30 PM CDT [facility] Protein Total 6.7 6.4 - 8.3 gm/dL 12/01/2024 2:30 PM CDT [facility] Albumin 4.1 3.1 - 4.5 gm/dL 12/01/2024 2:30 PM CDT [facility] Bilirubin Total 0.3 0.2 - 1.2 mg/dL 12/01/2024 2:30 PM CDT [facility] eGFR by CKD-EPI >90 >=90 mL/min/1.7 3 m2 12/01/2024 2:30 PM CDT [facility] Blood BLOOD SPECIMEN / Unknown Venipuncture / Unknown 12/01/2024 12:24 PM CDT 12/01/2024 2:18 PM CDT Sourav Jaimes MD LAB - CHEMISTRY ORDERABLES Yanet monson Result [facility] [address] [place] [address] * PROTEIN CREATININE RATIO URINE RANDOM PNL (12/01/2024 12:24 PM CDT) Protein Urine 10.4 <11.9 mg/dL 12/01/2024 1:51 PM CDT [facility] Creatinine Urine 137.02 mg/dL 12/01/2024 1:51 PM CDT [facility] Protein/Creatin ine Ratio Urine 0.08 12/01/2024 1:51 PM CDT [facility] Urine URINE SPECIMEN OBTAINED BY CLEAN CATCH PROCEDURE / Unknown Collection / Unknown 12/01/2024 12:24 PM CDT 12/01/2024 1:24 PM CDT Sourav Jaimes MD LAB - URINE CHEMISTRY ORDERABLE S Final Result Performing Organization Address [facility]/ZIP Co de Phone Number [facility] [address] [place] [phone] * PROTEIN URINE TIMED QUANTITATIVE (12/01/2024 10:13 AM CDT) Volume 24 Hour Urine 2,000 mL 12/01/2024 11:56 AM CDT [facility] Collection Time Hours 24 hrs 12/01/2024 11:56 AM CDT [facility] Protein 24 Hour Urine 12/01/2024 11:56 AM CDT [facility] Comment:Unable to calculate due to limited levels of measurable protein. Protein Urine <6.8 <11.9 mg/dL 12/01/2024 11:56 AM CDT [facility] Urine TIMED URINE SPECIMEN / Unknown Timed Urine Volume Measurement / Unknown 12/01/2024 10:13 AM CDT 12/01/2024 11:40 AM CDT Sourav Jaimes MD LAB - URINE CHEMISTRY ORDERABLE S Final Result Performing Organization Address [facility] Co de Phone Number [facility] [address] [place] [phone] * URINALYSIS - POCT (IP) BEAKER INTERFACE (12/01/2024 10:11 AM CDT) Only the most recent of2 resultswithin the time period is included. Color UA POCT Yellow Straw, Yellow, Dark Yellow, Light Yellow 12/01/2024 10:14 AM CDT [facility] Clarity UA POCT Clear Clear 10:14 AM CDT [facility] Specific [place] UA POCT 1.025 1.005 - 1.030 12/01/2024 10:14 AM CDT [facility] pH UA POCT 6.0 5.0 - 8.0 pH 12/01/2024 10:14 AM CDT [facility] Protein UA POCT Negative Negative 10:14 AM CDT [facility] Blood UA POCT Negative Negative 12/01/2024 10:14 AM CDT [facility] Leukocyte UA POCT Negative Negative 12/01/2024 10:14 AM CDT [facility] Nitrite UA POCT Negative Negative 5 10:14 AM CDT [facility] Glucose UA POCT Negative Negative 5 10:14 AM CDT [facility] Ketone UA POCT Negative Negative 12/01/2024 10:14 AM CDT [facility] Bilirubin UA POCT Negative Negative 12/01/2024 10:14 AM CDT [facility] Urobilinogen UA POCT 0.2 0.1 - 1.0 EU/dL 12/01/2024 10:14 AM CDT [facility] Urine URINE / Unknown 12/01/2024 1 0:11 AM CDT 12/01/2024 10:14 AM CDT us Sourav Jaimes MD LAB - POINT OF CARE ORDERABLES Final Result Performing Organization Address City/[facility]/ZIP Co de Phone Number [facility] [address] [place] [address] * TRICHOMONAS VAGINALIS IRA (11/24/2024 11:20 AM CDT) Trichomonas by IRA NEGATIVE NEGATIVE 11/25/2024 7:30 AM CDT [facility] Microbiology ENTIRE ENDOCERVIX / Unknown Collection / Unknown 11/24/2024 11:20 AM CDT 11/24/2024 12:00 PM CDT Narrative [facility] - 11/25/2024 7:30 AM CDT This test performed by Qualitative real-time Polymerase Chain Reaction (PCR). us Anna Alvarado MD LAB - MICROBIOL OGY ORDERABLES Final Result [facility] [address] [place] [address], [facility] [phone] * CHLAMYDIA AND N. GONORRHOEAE IRA (11/24/2024 11:20 AM CDT) Chlamydia by IRA NEGATIVE NEGATIVE 11/25/2024 7:28 AM CDT [facility] Neisseria gonorrhoeae IRA NEGATIVE NEGATIVE 11/25/2024 7:28 AM CDT [facility] Microbiology ENTIRE ENDOCERVIX / Unknown Collection / Unknown 11/24/2024 11:20 AM CDT 11/24/2024 12:00 PM CDT Narrative [facility] - 11/25/2024 7:28 AM CDT This test performed by Qualitative real-time Polymerase Chain Reaction (PCR). us Anna Alvarado MD LAB - MICROBIOL OGY ORDERABLES Final Result [facility] [address] [place] [address], [facility] [phone] * PAP IG LB RFLX HPV APTIMA ASCU (11/24/2024 11:20 AM CDT) Diagnosis Comment 11/27/2024 4:11 PM CDT [facility] ([facility]) Comment:NEGATIVE FOR INTRAEP ITHELIAL LESION OR MALIGNANCY. Specimen Adequacy Comment 025 4:11 PM CDT [facility] ([facility]) Comment: Satisfactory for evaluation. Endocervical and/or squamous metaplastic cells (endocervical component) are present. Performed by Comment 11/27/2024 4:11 PM CDT [facility] ([facility]) Comment:Katya Ramsay, Aerial Installer (ASCP) Comment . 11/27/2024 4:11 PM CDT [facility] ([facility]) Note Comment 11/27/2024 4:11 PM CDT [facility] ([facility]) Comment: The Pap smear is a screening test designed to aid in the detection of premalignant and malignant conditions of the uterine cervix. It is not a diagnostic procedure and should not be used as the sole means of detecting cervical cancer. Both false-positive and false-negative reports do occur. [employer]GL[employer] CPT Code Automation Comment 11/27/2024 4:11 PM CDT [facility] ([facility]) Comment: This liquid based ThinPrep(R) pap test was screened with the use of an image guided system. Note Comment 11/27/2024 4:11 PM CDT [facility] ([facility]) Comment: The HPV DNA reflex criteria were not met with this specimen result therefore, no HPV testing was performed. Pathology/Cytolo gy PART OF UTERINE CERVIX / Unknown Collection / Unknown 11/24/2024 11:20 AM CDT 11/24/2024 12:00 PM CDT Narrative [facility] ([facility]) - 11/27/2024 4:11 PM CDT [facility]formed [facility]: [facility] - [facility] [id number] [place] [id number] Station Baggage Agent: Eliceo Miranda MD, Phone: [phone] Performed at: 02 - Lab[address] [id number] Station Baggage Agent: Ana Weems MD, Phone: [phone] Specimen Comment: No. of containers..01 ThinPrep Vial us Anna Alvarado MD LAB - PATHOLOGY /CYTOLOGY ORDERABLES Final Result Performing Organization Address City/State/[facility] Co de Phone Number [facility]) [address] [place] [address] * URINE DRUG SCREEN IMMUNOASSAY (11/24/2024 11:20 AM CDT) Pathologist [facility] Amphetamines Screen Urine Not detected Not detected 11/24/2024 12:47 PM CDT [facility] Barbiturates Screen Urine Not detected Not detected 11/24/2024 12:47 PM CDT [facility] Benzodiazepines Screen Urine Not detected Not detected 11/24/2024 12:47 PM CDT [facility] Cannabinoids Screen Urine Not detected Not detected 11/24/2024 12:47 PM CDT [facility] Cocaine Screen Urine Not detected Not detected 11/24/2024 12:47 PM CDT [facility] Fentanyl Urine Not detected Not detected 11/24/2024 12:47 PM CDT [facility] Methadone Screen Urine Not detected Not detected 11/24/2024 12:47 PM CDT [facility] Opiate Screen Urine Not detected Not detected 11/24/2024 12:47 PM CDT [facility] Phencyclidine Screen Urine Not detected Not detected 11/24/2024 12:47 PM CDT [facility] Urine URINE / Unknown Collection / Unknown 11/24/2024 11:20 AM CDT 11/24/2024 12:00 PM CDT Narrative [facility] - 11/24/2024 12:47 PM CDT This drug screen is designed for MEDICAL purposes only. It is not to be used for legal purposes, including but not limited to worker's comp, police investigations, occupational issues, child custody, etc. Any positive result is only presumptive and must be confirmed with a separate confirmatory test ordered by the physician. Drug Screening Test Cutoff Values: AMPHETAMINES 1000 ng/mL BARBITURATES 200 ng/mL BENZODIAZEPINES 200 ng/mL CANNABINOIDS(THC) 50 ng/mL COCAINE 300 ng/mL FENTANYL 1.5 ng/mL METHADONE 300 ng/mL OPIATES 300 ng/mL PHENCYCLIDINE(PCP) 25 ng/mL Anna Alvarado MD LAB - URINE MARTÍN ALICIA ORDERABLES Final Result [facility] [address] [place], [place] [id number] * HEMOGLOBINOPATHY FRACTIONATION CASCADE (11/24/2024 11:19 AM CDT) Hemoglobin F 0.0 0.0 - 2.0 % 11/26/2024 3:10 PM CDT [facility] ([facility]) Hemoglobin A 97.2 96.4 - 98.8 % 11/26/2024 3:10 PM CDT [facility] ([facility]) Hemoglobin A2 2.8 1.8 - 3.2 % 11/26/2024 3:10 PM CDT [facility] ([facility]) Hemoglobin S 0.0 0.0 % 11/26/2024 3:10 PM CDT [facility] ([facility]) Interpretation Comment 11/26/2024 3:10 PM CDT [facility] ([facility]) Comment: Normal hemoglobin present; no hemoglobin variant or beta thalassemia identified. Note: Alpha thalassemia may not be detected by the Hgb Fractionation [place] panel. If alpha thalassemia is suspected, [facility] Alpha-Thalassemia DNA Analysis (#[id number]). Blood BLOOD SPECIMEN / Unknown Venipuncture / Unknown 11/24/2024 11:19 AM CDT 11/24/2024 11:58 AM CDT Narrative [facility] ([facility]) - 11/26/2024 3:10 PM CDT Performed at: 01 - [address] [id number] Station Baggage Agent: Lev Velasquez PhD, Phone: [phone] Anna Alvarado MD LAB - CHEMISTRY ORDERABLES Final Result [facility] ([facility]) [address] [place] [address] * CYSTIC FIBROSIS (CF) 97 VARIANTS (11/24/2024 11:19 AM CDT) Ethnicity Comment 12/03/2024 3:10 PM CDT [facility] ([facility]) Comment:Not Provided Specimen Type Comment 12/03/2024 3:10 PM CDT [facility] ([facility]) Comment:Whole Blood Indication Comment 12/03/2024 3:10 PM CDT [facility] ([facility]) Comment:Carrier Test / Scree dani Result Comment 12/03/2024 3:10 PM CDT [facility] ([facility]) Comment:NEGATIVE Interpretation Comment 12/03/2024 3:10 PM CDT [facility] ([facility]) Comment: Negative Results Disorders (Gene) Result Interpretation Cystic fibrosis NEGATIVE This result reduces, CFTR [id number] but does not eliminate, the risk to be a carrier. Risk: At reduced risk for an affected . For ethnic-specific risk revisions see Information Table. Recommendations Comment 3:10 PM CDT [facility] ([facility]) Comment: If the above result is positive, genetic counseling is recommended to discuss the potential clinical and/or reproductive implications, as well as recommendations for testing family members and, when applicable, this individual's partner. Genetic counseling services are available. To access [facility] please visit [email or web address] or call [phone] [phone] ([phone]). Additional Clinical Info Comment 12/03/2024 3:10 PM CDT [facility] ([facility]) Comment: Cystic fibrosis (CF) is an autosomal recessive disorder with variable severity and age at onset. Signs and symptoms of classic CF may include elevated sweat chloride levels, progressive lung disease, pancreatic insufficiency, and male infertility. Symptoms of mild CF may include pancreatic sufficiency. Symptoms of CFTR-related disorders may include pancreatitis, bronchiectasis, and isolated male infertility due to congenital absence of the vas deferens (CBAVD). Treatment is dietary and supportive. Genotype-targeted therapies may be available for some individuals. In severely affected individuals, lung transplantation may be indicated. (PMID:61739942). Comments Comment 12/03/2024 3:10 PM [facility] [employer] ([facility]) Comment: This interpretation is based on the clinical information provided and the current understanding of the molecular genetics of the disorder(s) tested. Information about the disorder(s) tested is available at [email or web address]. Methods and Limitations Comment 12/03/2024 3:10 PM [facility] ([facility]) Comment: Next-generation Sequencing (NGS): Genomic regions of interest in the CFTR gene are selected using the [employer] hybridization capture method and sequenced via the [email or web address] NGS platform. Sequencing reads are aligned to the human genome reference GRCh37/hg19 build. Regions of interest include genomic regions encompassing targeted variants. Analytical sensitivity is estimated to be >99% for single nucleotide variants and small insertions/deletions. Variant detection is performed by [employer] and in-house algorithms. Confirmatory testing is done by [employer] sequencing. Variants are specified using the numbering and nomenclature recommended by the Human Genome Variation Society (HGVS, http://www.hgvs.org/). Variant classification and confirmation are consistent with ACMG standards and guidelines (White, PMID:94442849; Elton, PMID:02950031). Analysis is restricted to 97 targeted CF variants, listed below. [id number], c.178G>T (p.Glu60*), c.223C>T (p.Arg75*), c.254G>A (p.Zfn41Gxc), c.262_263delTT (p.Eki74Kjftl*22), c.273+1G>A, c.273+3A>C, c.274-1G>A, c.274G>T (p.Glu92*), c.313delA (p.Lko164Xmyhl*2), c.325_327delinsG (p.Kej091Fcfef*4), c.349C>T (p.Ieu839Nnp), c.350G>A (p.Owu996Vfw), c.366T>A (p.Iem253*), c.442delA (p.Czx374Vvzvg*5), c.489+1G>T, c.531delT (p.Uqb348Krtws*12), c.532G>A (p.Bkd144Mjk), c.579+1G>T, c.579+5G>A, c.580-1G>T, c.617T>G (p.Pfb315Tti), c.803delA (p.Cfc741Qfenz*17), c.805_806delAT (p.Uik579Xtqew*4), c.935_937delTCT (p.Bfd686cug), c.948delT (p.Bgq121Ivmie*12), c.988G>T (p.Wam292*), c.1000C>T (p.Ute076Xqa), c.1013C>T (p.Tic172Puq), c.1040G>A (p.Lmn562Gxg), c.1040G>C (p.Kem903Pvh), c.1055G>A (p.Jfv660Fup), c.[1075C>A;1079C>A' (p.[Cls389Wxw;Jdl214Nha'), c.1155_1156dupTA (p.Ryc856Mxuaq*3), c.1364C>A (p.Uwo481Roy), c.1438G>T (p.Dqu186Vjk), c.1477C>T (p.Tcv749*), c.1519_1521delATC (p.Rak847gij), c.1521_1523delCTT (p.Ddf152tji), c.1545_1546delTA (p.Axh369*), c.1558G>T (p.Tmt354Rjd), c.1572C>A (p.Zzu051*), c.1585-1G>A, c.1624G>T (p.Ibn880*), c.1646G>A (p.Mxh334Ima), c.1647T>G (p.Gtk179Yoo), c.1652G>A (p.Fyu081Vyd), c.1654C>T (p.Dmt041*), c.1657C>T (p.Ont472*), c.1675G>A (p.Edu200Nrv), c.1679G>C (p.Luc509Euh), c.1680-1G>A, c.1721C>A (p.Mtc613Csa), c.1766+1G>A, c.1766+5G>T, c.1820_1903del84 (p.Csh818_Qdh465hrm), c.1911delG (p.Vqy212Ucovo*26), c.1923_1931delinsA (p.Kpn818Dxpcn*5), c.1973_1985delinsAGAAA (p.Rrx284Lcxvh*4), c.1976delA (p.Rkd012Nfwfj*4), c.2011delT (p.Bly219*), c.205_2delinsG (p.Mpa562Tlcaz*38), c.2052delA (p.Sqp023Txxta*38), c.2052dupA (p.Tlk330Fqfjw*4), c.2125C>T (p.Xef594*), c.2128A>T (p.Lns261*), c.2175dupA (p.Nfh793Nibau*4), c.2290C>T (p.Tqi190*), c.2657+5G>A, c.2668C>T (p.Gqp720*), c.2737_2738insG (p.Fsz242*), c.2988G>A (p.Ehb998=), c.2988+1G>A, c.3039delC (p.Qjt1914Uarwc*9), c.3067_3072delATAGTG (p.Fhq8687_Tpw9356oet), c.3196C>T (p.Vir2235Oyb), c.3266G>A (p.Mwl6116*), c.3276C>A (p.Jcx2335*), c.3276C>G (p.Tnx7534*), c.3302T>A (p.Xte8405Sri), c.3454G>C (p.Znr0718Gmf), c.3472C>T (p.Gui5966*), c.3484C>T (p.Dtl9255*), c.3528delC (p.Fkm4589Aonzh*15), c.3536_3539delCCAA (p.Fob3584Ybacy*12), c.3587C>G (p.Iza7612*), c.3611G>A (p.Qke4846*), c.3659delC (p.Zpg9692Zrzkx*8), c.3712C>T (p.Wjg6745*), c.3718-2477C>T, c.3744delA (p.Ffj2322Hunoj*9), c.3752G>A (p.Rti0743Kfe), c.3764C>A (p.Xgw3837*), c.3773dupT (p.Pkm7096Qlkmy*7), c.3846G>A (p.Pir1442*), c.3889dupT (p.Puu0506Bzwdn*5), c.3909C>G (p.Jfx8593Fwj) Limitations: Technologies used do not detect germline mosaicism and do not rule out the presence of large chromosomal aberrations including rearrangements and gene fusions, or variants in regions or genes not included in this test, or possible inter/intragenic interactions between variants, or repeat expansions. Variant classification and/or interpretation may telephone exchange operator time if more information becomes available. False positive or false negative results may occur for reasons that include: rare genetic variants, sex chromosome abnormalities, pseudogene interference, blood transfusions, bone marrow transplantation, somatic or tissue-specific mosaicism, mislabeled samples, or erroneous representation of family relationships. This test was developed and its performance characteristics determined by [facility]. It has not been cleared or approved by the Food and Drug Administration. Information Table Comment 025 3:10 PM CDT [facility] ([facility]) Comment: Cystic fibrosis, 97 variants, risk reductions for individuals with no family history Population Detection rate Pre-test Post-final inspector and tester carrier risk risk with negative result Ashkenazi 97% 1 in 24 1 in 767 Episcopalian 55% 1 in 94 1 in 208 Dutch Black 81% 1 in 61 1 in 316 78% 1 in 58 1 in 260 White 93% 1 in 25 1 in 343 Mixed or For counseling other ethnic purposes, background consider using the ethnic background with the most conservative risk estimates. References Comment 12/03/2024 3:10 PM CDT [facility] ([facility]) Comment: Lynne ZAIDI, Kofi C, Tim GR et al. CFTR variant testing: a technical standard of the [place] [employer] and [employer] (ACMG). Rachel Med 22, 7926 (2020). PMID: [id number] London T, Ruben SG, Lloyd BA, et al. Cystic Fibrosis and Congenital Absence of the Vas Deferens. 2000 [Updated 2016Jul 20'. In: Cristopher MP, Kehinde HH, Aubrey RA, et al., editors. Gordon(R) [Internet'. PMID: [id number] Director Review Comment 3:10 PM CDT [facility] ([facility]) Comment: Component Type Performed At [facility] Lonnie Edwards, ghada, Pk, PhD processing [address] [place], [address] Technical Laboratory ghada Calhoun, Pk, PhD analysis [address] [place], [address] Professional [id number], Lonnie Edwards, component Laboratory , PhD [facility], [address] [place], [address] Electronically released by Manpreet Melchor, PhD, [facility] Blood BLOOD SPECIMEN / Unknown Venipuncture / Unknown 11/24/2024 11:19 AM CDT 11/24/2024 11:57 AM CDT Narrative [facility] ([facility]) - 12/03/2024 3:10 PM CDT Performed at: 01 - [facility] [address], [facility], [place] [id number] Station Baggage Agent: Lonnie Edwards [facility], Phone: [phone] us Anna Alvarado MD LAB - CHEMISTRY ORDERABLES Final Result [facility] ([facility]) [address] [place] [address] * SYPHILIS ANTIBODY CASCADING REFLEX (11/24/2024 11:19 AM CDT) Treponema pallidum Antibody Non Reactive Non Reactive 11/24/2024 1:07 PM CDT [facility] Comment: No Laboratory evidence of syphilis infection. Note: Circulating antibodies may be low or undetectable in early infection. If recent exposure is suspected, re-draw sample in 2-4 weeks and repeat testing. Blood BLOOD SPECIMEN / Unknown Venipuncture / Unknown 11/24/2024 11:19 AM CDT 11/24/2024 11:58 AM CDT us Anna Alvarado MD LAB - SEROLOGY ORDERABLES Final Result [facility] [address] [place], [place] [id number] * SPINAL MUSCULAR ATROPHY CARRIER (11/24/2024 11:19 AM CDT) Ethnicity Comment 11/28/2024 11:11 AM CDT [facility] ([facility]) Comment:Not Provided Specimen Type Comment 11/28/2024 11:11 AM CDT [facility] ([facility]) Comment:Whole Blood Indication Comment 11/28/2024 11:11 AM CDT [facility] ([facility]) Comment:Carrier Test / Scree dani Result Comment 11/28/2024 11:11 AM CDT [facility] ([facility]) Comment:NEGATIVE Interpretation Comment 11/28/2024 11:11 AM [facility] ([facility]) Comment: Negative Results Disorders (Gene) Result Interpretation Spinal muscular NEGATIVE : 2 This result reduces, atrophy SMN1 copies of but does not [id number] SMN1; eliminate, the risk c.*3+80T>G to be a carrier. risk variant Risk: NOT at an not present. increased risk for an affected . Recommendations Comment 11:11 AM [facility] ([facility]) Comment: If the above result is positive, genetic counseling is recommended to discuss the potential clinical and/or reproductive implications, as well as recommendations for testing family members and, when applicable, this individual's partner. Genetic counseling services are available. To access [employer] Genetic Counselors please visit [email or web address] or call [phone] ([phone]). Additional Clinical Info Comment 11/28/2024 11:11 AM [facility] ([facility]) Comment: Spinal muscular atrophy (SMA) is an autosomal recessive neurodegenerative disorder with variable age at onset and severity, characterized by progressive degeneration of the lower motor neurons in the spinal cord and brain stem, leading to muscle weakness, and in its most common form, respiratory failure by age two. Complications of SMA may include poor weight gain, sleep difficulties, pneumonia, scoliosis, and joint deformities. In severely affected individuals, abnormal ultrasound findings may include congenital joint contractures, polyhydramnios, and decreased movement. (Tye, PMID:[id number]). Treatment is supportive. Targeted therapies may be available for some individuals. Approximately 94% of affected individuals have 0 copies of the SMN1 gene; in these individuals, an increase in the number of copies of the SMN2 gene correlates with reduced disease severity (Charlie Fontaine, PMID:73795019). Individuals with one copy of the SMN1 gene are predicted to be carriers of SMA; those with two or more copies have a reduced carrier risk. For individuals with two copies of the SMN1 gene, the presence or absence of the variant c.*3+80T>G correlates with an increased or decreased risk, respectively, of being a silent carrier (2+0). Comments Comment 11/28/2024 11:11 AM [facility] ([facility]) Comment: This interpretation is based on the clinical information provided and the current understanding of the molecular genetics of the disorder(s) tested. Information about the disorder(s) tested is available at [email or web address]. Methods and Limitations Comment 11/28/2024 11:11 AM [facility] ([facility]) Comment: Spinal muscular atrophy: The copy number of SMN1 exon 7 is assessed relative to internal standard reference genes by quantitative polymerase chain reaction (qPCR). A mathematical algorithm calculates 0, 1, 2 and 3 copies with statistical confidence. In specimens and specimens with 0 or 1 copies, the primer and probe binding sites are sequenced to rule out variants that could interfere with copy number analysis. SMN2 copy number is assessed by digital droplet PCR analysis relative to an internal standard reference gene in samples with no copies of SMN1. For carrier screening, when two copies of SMN1 are detected, allelic discrimination qPCR targeting c.*3+80T>G in SMN1 is performed. Limitations: Technologies used do not detect germline mosaicism and do not rule out the presence of large chromosomal aberrations including rearrangements and gene fusions, or variants in regions or genes not included in this test, or possible inter/intragenic interactions between variants, or repeat expansions. Variant classification and/or interpretation may telephone exchange operator time if more information becomes available. False positive or false negative results may occur for reasons that include: rare genetic variants, sex chromosome abnormalities, pseudogene interference, blood transfusions, bone marrow transplantation, somatic or tissue-specific mosaicism, mislabeled samples, or erroneous representation of family relationships. This test was developed and its performance characteristics determined by [employer], [email or web address]. It has not been cleared or approved by the Food and Drug Administration. [employer] is a subsidiary of [employer], using the brand [employer] Information Table Comment 11:11 AM [facility] ([facility]) Comment: Spinal muscular atrophy risk reductions for individuals with no family history Populati Detect Pre-te Post-danay Post-te on ion st t risk st rate suki of risk (Copy r being a of number risk carrier being + with 2 a SNP) copies carrier with 3 copies POSITIVE NEGATIVE for the for the c.*3+80T c.*3+80T >G SNP >G SNP Ashkenaz 92.8% 1 in High 1 in 1 in i 67 risk 918 5400 Episcopalian 93.6% 1 in High 1 in 1 in 59 risk 907 5600 Black 90.3% 1 in 1 in 34 1 in 1 in 72 375 4200 92.6% 1 in 1 in 1 in 1 in 68 846 925 5337 White 95.0% 1 in 1 in 29 1 in 1 in 47 921 5600 Mixed For or counse other ling ethnic purpos backgrou es, nd consid er using the ethnic backgr ound with the most conser vative risk estima danay. includes carriers who are silent carriers (2+0) and carriers with a pathogen ic variant not detected in this assay Mitchell. PMID [id number] ; Elliott. PMID [id number] ; Dwayne . PMID [id number] References Comment 11/28/2024 11:11 AM T [facility] ([facility]) Comment: Lynne ZAIDI, Kofi C, Tino A et al. Addendum: Technical standards and guidelines for spinal muscular atrophy testing. Rachel Med 23, 4182 (2020). [Addendum to PMID: [id number]' Prior TW, Bruno ME, Carlos E. Spinal Muscular Atrophy. 1999Aug 11 (Updated 2019Jun 16). In: Cristopher MP, Kehinde HH, Aubrey RA, et al., editors. Gordon(R) [Internet'. PMID: [id number] Director Review Comment 11:11 AM T [facility] ([facility]) Comment: Component Type Performed At [employer] Jeannine Middleton, PhD, [employer], [facility] processing [address], [place], [address] [employer] Jeannine Middleton, PhD, [employer], [facility] analysis [address], [place], [address] Professional [employer] Jeannine Middleton, PhD, [place], [address], [address] Electronically released by Michele Mehta, PhD, [facility] Blood BLOOD SPECIMEN / Unknown Venipuncture / Unknown 11/24/2024 11:19 AM CDT 11/24/2024 11:57 AM CDT Narrative [facility] ([facility]) - 11/28/2024 11:11 AM CDT Performed at: [facility] [address], [place], [place] [address] Station Baggage Agent: Jeannine Middleton PhD, Phone: [phone] us Anna Alvarado MD LAB - CHEMISTRY ORDERABLES Final Result [facility] ([facility]) [address] [place] [address] * HIV-1 HIV-2 ANTIBODY + HIV P24 AG PANEL (11/24/2024 11:19 AM CDT) [facility] HIV1/2 Ab + P24 Ag Non Reactive Non Reactive 11/24/2024 1:07 PM CDT [facility] Blood BLOOD SPECIMEN / Unknown Venipuncture / Unknown 11/24/2024 11:19 AM CDT 11/24/2024 11:58 AM CDT Narrative [facility] - 11/24/2024 1:07 PM CDT No Laboratory evidence of HIV infection. Anna Alvarado MD LAB - CHEMISTRY ORDERABLES Final Result Performing Organization Address [facility]/ZIP Co de Phone Number [facility] [address] [place], [place] [id number] * RUBELLA ANTIBODY IGG (11/24/2024 11:19 AM CDT) Pathologist [facility] Rubella Antibody 1.17 Immune >0.99 index 11/25/2024 10:10 AM CDT [facility] ([facility]) Comment: Non-immune <0.90 Equivocal 0.90 - 0.99 Immune >0.99 Blood BLOOD SPECIMEN / Unknown Venipuncture / Unknown 11/24/2024 11:19 AM CDT 11/24/2024 11:58 AM CDT Narrative [facility] ([facility]) - 11/25/2024 10:10 AM CDT Performed at: 01 - [facility] [place] [address] [facility], [place], [place] [address] Station Baggage Agent: Lev Velasquez PhD, Phone: [phone] Anna Alvarado MD LAB - SEROLOGY ORDERABLES Final Result [facility] ([facility]) [address] [place] [address] * (ABNORMAL) HEMOGLOBIN A1C (11/24/2024 11:19 AM CDT) Hemoglobin A1c 6.5(H) <5.7 % 11/24/2024 12:59 PM CDT [facility] Estimated Average Glucose 140 mg/dL 11/24/2024 12:59 PM CDT [facility] Blood BLOOD SPECIMEN / Unknown Venipuncture / Unknown 11/24/2024 11:19 AM CDT 11/24/2024 11:58 AM CDT Narrative [facility] - 11/24/2024 12:59 PM CDT HbA1c Interpretation: Normal: < 5.7% Pre-diabetes: 5.7-6.4% Diabetes: Equal to or greater than 6.5% Test results diagnostic of diabetes should be repeated for confirmation. Treatment target values recommended by ADA and other clinical organizations should be used to evaluate metabolic control in patients. This test should not replace glucose testing for patients with Type 1 diabetes, pediatric patients, or women. Falsely low HbA1c results may be observed in patients with clinical conditions that shorten erythrocyte life span or decrease mean erythrocyte age such as the presence of unstable hemoglobin variants, elevated hemoglobin F level or other causes of hemolytic anemia. HbA1c may not accurately reflect glycemic control when clinical conditions that affect erythrocyte survival are present. Severe Iron deficiency anemia may yield falsely high results. Hemoglobin A1c assay should not be used to diagnose or monitor diabetes in patients with malignancy, recent blood transfusion, chronic kidney or liver disease. This method may yield falsely low results when hemoglobin (HbF) exceeds 5% in the specimen. The Rincon Alinity assay for the measurement of HbA1c is a National Glycohemoglobin Standardization Program (NGSP) certified method. us Anna Alvarado MD LAB - CHEMISTRY ORDERABLES Final Result [facility] [address] [place] [address] * TYPE + SCREEN PANEL (11/24/2024 11:19 AM CDT) Pathologist [facility] ABO Rh A POS 11/24/2024 12:43 PM CDT [facility] Comment:No history; collect retype. Antibody Screen NEG 12:43 PM CDT [facility] Blood Bank BLOOD SPECIMEN / Unknown Venipuncture / Unknown 11/24/2024 11:19 AM CDT 11/24/2024 11:58 AM CDT Anna Alvarado MD LAB - BLOOD BAN K ORDERABLES Final Result Performing Organization Address [facility] Co de Phone Number [facility] [address] [place] [address] * CBC W AUTO DIFFERENTIAL (11/24/2024 11:19 AM CDT) [facility] WBC 7.7 4.0 - 10.7 x10E9/L 11/24/2024 12:17 PM CDT [facility] RBC Count 4.25 3.90 - 5.20 x10E12/L 11/24/2024 12:17 PM CDT [facility] Hemoglobin 12.0 11.9 - 15.8 g/dL 11/24/2024 12:17 PM CDT [facility] Hematocrit 37.0 34.8 - 46.1 % 11/24/2024 12:17 PM CDT [facility] MCV 87.1 80.0 - 98.0 fL 11/24/2024 12:17 PM CDT [facility] MCH 28.2 26.7 - 33.6 pg 11/24/2024 12:17 PM CDT [facility] MCHC 32.4 31.7 - 36.3 g/dL 11/24/2024 12:17 PM CDT [facility] RDW-CV 12.7 11.3 - 14.8 % 11/24/2024 12:17 PM CDT [facility] Platelet Count 254 150 - 420 x10E9/L 11/24/2024 12:17 PM CDT [facility] MPV 10.8 7.8 - 11.4 fL 11/24/2024 12:17 PM CDT [facility] Neutrophil % 60.9 41.0 - 74.0 % 11/24/2024 12:17 PM CDT [facility] Lymphocyte % 26.8 17.0 - 47.0 % 11/24/2024 12:17 PM CDT [facility] Monocyte % 9.9 3.0 - 11.0 % 11/24/2024 12:17 PM CDT [facility] Eosinophil % 1.0 0.0 - 7.0 % 11/24/2024 12:17 PM CDT [facility] Basophil % 0.4 0.0 - 1.6 % 11/24/2024 12:17 PM CDT [facility] Immature Granulocytes % 1.0 0.0 - 1.0 % 11/24/2024 12:17 PM CDT [facility] Neutrophil Absolute 4.69 1.60 - 7.50 x10E9/L 11/24/2024 12:17 PM CDT [facility] Lymphocyte Absolute 2.06 1.00 - 4.40 x10E9/L 11/24/2024 12:17 PM CDT [facility] Monocyte Absolute 0.76 0.15 - 1.00 x10E9/L 11/24/2024 12:17 PM CDT [facility] Eosinophil Absolute 0.08 0.00 - 0.60 x10E9/L 11/24/2024 12:17 PM CDT [facility] Basophil Absolute 0.03 0.00 - 0.13 x10E9/L 11/24/2024 12:17 PM T [facility] Blood BLOOD SPECIMEN / Unknown Venipuncture / Unknown 11/24/2024 11:19 AM CDT 11/24/2024 11:58 AM CDT us Anna Alvarado MD LAB - HEMATOLOG Y ORDERABLES Final Result [facility] [address] [place] [address] * HEPATITIS B SURFACE ANTIGEN W RFLX CONFIRMATION (11/24/2024 11:19 AM CDT) [facility] HBsAg Non Reactive Non Reactive 11/24/2024 1:07 PM CDT [facility] Blood BLOOD SPECIMEN / Unknown Venipuncture / Unknown 11/24/2024 11:19 AM CDT 11/24/2024 11:58 AM CDT Anna Alvarado MD LAB - CHEMISTRY ORDERABLES Final Result Performing Organization Address City/[facility]/ZIP Co de Phone Number [facility] [address] [place] [address] * HEPATITIS C ANTIBODY (11/24/2024 11:19 AM CDT) [facility] HCV Antibody Screen Non Reactive Non Reactive 11/24/2024 1:08 PM CDT [facility] Blood BLOOD SPECIMEN / Unknown Venipuncture / Unknown 11/24/2024 11:19 AM CDT 11/24/2024 11:58 AM CDT Narrative [facility] - 11/24/2024 1:08 PM CDT Non Reactive - Antibodies to Hepatitis C virus (HCV) were not detected, result does not exclude early acute HCV infection. Anna Alvarado MD LAB - CHEMISTRY ORDERABLES Final Result [facility] [address] [place] [address] * FERRITIN (11/24/2024 11:19 AM CDT) [facility] Ferritin 128 5 - 204 ng/mL 11/24/2024 12:51 PM CDT [facility] Blood BLOOD SPECIMEN / Unknown Venipuncture / Unknown 11/24/2024 11:19 AM CDT 11/24/2024 11:58 AM CDT Anna Alvarado MD LAB - CHEMISTRY ORDERABLES Final Result [facility] [address] [place] [address] * GLUCOSE - POINT OF CARE (11/24/2024 10:29 AM CDT) [facility] Glucose WB/POC 98 70 - 99 mg/dL 11/24/2024 10:35 AM CDT [facility] Specimen Type Arterial/C apillary 11/24/2024 10:35 AM CDT [facility] Blood BLOOD SPECIMEN / Unknown 11/24/2024 10:29 AM CDT 11/24/2024 10:35 AM CDT us Anna Alvarado MD LAB - POINT OF CARE ORDERABLES Final Result Performing Organization Address City/[facility] Co de Phone Number [facility] [address] [place] [address] * SONOGRAM - COMPLETE (11/24/2024 8:32 AM CDT) [facility] Linked Results Indication ======== Dating Diabetes mellitus, type II History of scoliosis surgery History ====== OB History 1. Para 0 Maternal Assessment Physical Exam Height 168 cm, 5 ft 6 in. Weight 77 kg, 170 lb. Initial weight 77 kg, 170 lb. BMI 27.44 kg/m . Initial BMI 27.44 kg/m . Weight gain 0 kg, 0 lb Method ====== Transabdominal and transvaginal ultrasound examination. View: Sufficient ========= Rodrigues . Number of embryos: 1 Dating ====== Date Details Gest. age JESSICA U/S 11/24/2024 based upon CRL 9 w + 0 d 06/29/2025 Assigned dating based on ultrasound (CRL), selected on 11/24/2024 9 w + 0 d 06/29/2025 Assessment Gestational sac: visualized. Location: intrauterine Yolk sac: visualized Embryo: visualized Cardiac activity: present CRL 22.4 mm 9w 0d 47% [place] FHR 165 bpm Maternal Structures Right Ovary Visualized Left Ovary Visualized Impression ========= Single, live, intrauterine at 9w 0d Comment ======== ultrasound alone cannot detect all structural, genetic, or functional , placental, or maternal abnormalities Follow-up ======== Follow up ultrasound at 20 weeks for detailed survey, growth and transvaginal cervical length. Coding ====== Procedures 03463: 1st Trimester 17590: [place] Preg Uterus Transvaginal T [facility] [employer] PACS Anatomical Region Laterality Modality Other 11/24/2024 8:32 AM CDT Sourav Jaimes MD [facility] ORDERABLES Edited Result - Final from Last 3 Months Insurance [facility] MEDICARE MEDICARE [facility] [id number] * Guarantor: JANELLE MACK Account Type Relation to Patient Date of Phone Billing Address Personal/Family Spouse
--- OUTSIDE RECORDS SUMMARY | 2024-12-03 16:24 | XMS_ITS | Referral Summary ---
Author Organization [facility] Address [address] [place] [address] Care Team Providers Care Data Warehousing Specialist Name Role Phone Sukhwinder Madden MD [...] gauge combo pack 30 each early childhood teacher before breakfast 3 each 3 3 Active [...] 08/04/2021 Assessment & Plan (05/31/2023 4:15 PM CABANA ATTENDANT): Hba1c was Lab Results Component Value Date [...] on file Legal Sex Female 12:00 PM CABANA ATTENDANT Gender Identity Not on file Sexual Orientation Not on file Last Filed Vital Signs Vital Sign Reading Time Taken Comments Blood Pressure 120/70 05/31/2023 2:17 PM CABANA ATTENDANT Pulse 105 05/31/2023 2:17 PM CABANA ATTENDANT Temperature - - Respiratory Rate 18 05/31/2023 2:17 PM CABANA ATTENDANT Oxygen Saturation - - Inhaled Oxygen Concentration - - Weight 80.7 kg (178 lb) 05/31/2023 2:17 PM CABANA ATTENDANT Height 166.4 cm (5' 5.5) 05/31/2023 2:17 PM CABANA ATTENDANT Body Mass Index 29.17 05/31/2023 2:17 PM CABANA ATTENDANT Plan of Treatment Not on file Procedures Procedure Name Priority Date/Time Associated Diagnosis Comments POCT HEMOGLOBIN A1C Routine 05/31/2023 2 :17 PM CABANA ATTENDANT Type 2 diabetes mellitus with hyperglycemia, with long-term current use of insulin (HCC) from Last 3 Months or Most Recently Relevant to Health Maintenance Results * (ABNORMAL) POCT hemoglobin A1c (05/31/2023 2:17 PM CABANA ATTENDANT) Hemoglobin A1C, POC 7.5 % Blood spot 05/31/2023 2:17 PM CABANA ATTENDANT Marco Antonio Geller MD POINT OF CARE TEST ORDERABLES Fi nal Result from Last 3 Months or Most Recently Relevant to Health Maintenance Insurance MEDICARE [facility] MEDICARE [employer] Care Teams Data Warehousing Specialist Relationship Specialty Start Date End Date Sukhwinder Madden MD [address] [place] [address] PCP - General Internal Medicine 04/27/22
--- OUTSIDE RECORDS SUMMARY | 2024-12-03 16:24 | XMS_ITS | Patient Health Record ---
Author Organization [facility] [place] ([address]) Address [address] [place] [address] Care Team Providers Care Drapery Examiner Name Role Phone Liliana Riley Primary Care Provider Sharee Astudillo Unavailable [phone] Allergies Allergen (clinical drug ingredient) Drug/Non Drug [...] review and pick correct strength-formulat ion from [employer] options. If intended option is not shown, [...] W/U Status Risk Notes Problem Anxiety disorder (954947611) Anxiety disorder, unspecified (F41.9) Active confirmed Problem Allergic rhinitis (82515914) Other allergic rhinitis (J30.89) Active confirmed Problem Chronic rhinitis (88966678) Chronic rhinitis (J31.0) Active confirmed Problem Mild intermittent asthma (383809772) Mild intermittent asthma, uncomplicated (J45.20) Active confirmed Problem Food anaphylaxis (61408955) Anaphylactic reaction due to other food products, initial encounter (T78.09XA) Active confirmed Problem Food anaphylaxis (56667463) Anaphylactic reaction due to other food products, subsequent encounter (T78.09XD) Active confirmed Problem Allergy status t o other drugs, medicaments and biological substances (Z88.8) Active confirmed Plan Of Treatment No Information Insurance Providers Payer Name Payer Address Payer Phone Subscriber Number Group Number Insured Name Patient Relationship to Insured Coverage Start Date Coverage End Date [employer] (Medicare) Attention Claims [address] [place] [phone] [id number] Violet Lomeli Self - [place] [address] [id number] Violet Lomeli Self - patient is the insured Medical (General) History Medical History History ICD Code Tachycardia Diabetes Asthma Depression, unspecified F32.A Anxiety disorder, unspecified F41.9 Allergic rhinitis due to pollen J30.1 Surgical History Surgery Date(Month/Year) neck to back surgery/ had scoliosis 2014 Extensive oral surgery 2019 Hospitalization History Reason Date(Month/Year) Neck/Back surgery 2014
--- OUTSIDE RECORDS SUMMARY | 2024-12-03 16:24 | XMS_ITS | Clinical Summary ---
Author Organization [facility] Address [address] [place] [address] Care Team Providers Care Product Manager Medical Device Name Role Phone Sukhwinder Madden MD Primary [...] Cartridge) 30 gauge combo pack 30 each blow mold machine operator before breakfast 3 each 3 3 Active [...] 08/04/2021 Assessment & Plan (05/31/2023 4:15 PM STEREOTYPE CASTER): Hba1c was Lab Results Component Value Date [...] on file Legal Sex Female 12:00 PM STEREOTYPE CASTER Gender Identity Not on file Sexual Orientation Not on file Obstetrics History Last Filed Vital Signs Vital Sign Reading Time Taken Comments Blood Pressure 120/70 05/31/2023 2:17 PM STEREOTYPE CASTER Pulse 105 05/31/2023 2:17 PM STEREOTYPE CASTER Temperature - - Respiratory Rate 18 05/31/2023 2:17 PM STEREOTYPE CASTER Oxygen Saturation - - Inhaled Oxygen Concentration - - Weight 80.7 kg (178 lb) 05/31/2023 2:17 PM STEREOTYPE CASTER Height 166.4 cm (5' 5.5) 05/31/2023 2:17 PM STEREOTYPE CASTER Body Mass Index 29.17 05/31/2023 2:17 PM STEREOTYPE CASTER Plan of Treatment Health Maintenance Due Date [...] HEMOGLOBIN A1C Routine 05/31/2023 2 :17 PM STEREOTYPE CASTER Type 2 diabetes mellitus with hyperglycemia, with long-term current use of insulin (HCC) from Last 3 Months or Most Recently Relevant to Health Maintenance Results * (ABNORMAL) POCT hemoglobin A1c (05/31/2023 2:17 PM STEREOTYPE CASTER) Hemoglobin A1C, POC 7.5 % Blood spot 05/31/2023 2:17 PM STEREOTYPE CASTER Marco Antonio Geller MD POINT OF CARE TEST ORDERABLES Fi nal Result from Last 3 Months or Most Recently Relevant to Health Maintenance Insurance MEDICARE [employer] MEDICARE [employer] [place] Care Teams Product Manager Medical Device Relationship Specialty Start Date End Date Sukhwinder Madden MD [address] [place] [address] PCP - General Internal Medicine 04/27/22
--- OUTSIDE RECORDS SUMMARY | 2024-12-03 16:24 | XMS_ITS | Continuity of Care Document ---
Author Organization [facility] Address [address] [place] [address] Phone Care Team Providers Care Recreation Professor Name Role Phone Allred OD, Miguel Angel Unavailable Unavailable Procedures Procedure Date Eye Exam & Treatment Refraction SV Poly Carb Sph +/- 7.12 To +/- 20 D Au Vision Svcs Frames Purchases Medical Tax Advance Directives Directive Yes / No Effective Date File Name No Information Encounters Encounter Description Practice Location Reason(s) For Visit Diagnoses Date Provider Providers Copied on Encounter [facility], [address] [place] [address] [address], [place], [place], [id number], [place] tel:[phone] [facility] No Information 0-201 0 Allred OD Miguel Angel. [address] , [address], [place], [address], [place]. tel:[phone] [facility], [address] [place] [address] [address], [place], [place], [id number], [place] tel:[phone] [facility] No Information 0201 0 [facility] . [address], [address], [place], [place], [address], [place]. tel:[phone] Referring Provider: Miguel Angel Allred OD Cami, [address], [place], [address]. tel:[phone] payan Provider: Ck Read, [address] [facility], [place], [address]. tel:[phone] Family History Family Member Type Diagnosis Age At Onset No Information Payers Payer name Insurance type Covered libertarian ID Authorclair padgett(s) Medicaid [facility] [id number] Social History Type Description Quantity Date Captured [...]
--- OUTSIDE RECORDS SUMMARY | 2024-12-03 16:24 | XMS_ITS | CONTINUITY OF CARE DOCUMENT ---
Author Name meg, meg Address Unknown Organization [facility] [address] [address] Address [address] [address] [place] [address] Phone [phone] Care Team Providers Care Cardroom Attendant Name Role Phone Ward Fried MD Unavailable ERICA JUARES MD Unavailable [phone] ALENA JOHNSON MD Unavailable [phone] PROBLEMS Condition Status Date Provider Notes Palpitations [...] In-person encounter Office Visit Ward Fried MD [facility] Cardiology examination - In-person encounter Office Visit Ward Fried MD [facility] Postural orthostatic tachycardia syndrome - In-person encounter Office Visit Ward Fried MD [facility] - In-person encounter Office Visit Ward Fried MD [facility] - In-person encounter Office Visit Ward Fried MD [facility] - In-person encounter Office Visit Ward Fried MD [facility] Vaccination - COVID-19 - In-person encounter Office Visit Ward Fried MD [facility] - In-person encounter Office Visit Ward Fried MD [facility] Sinus tachycardia - In-person encounter Office Visit Ward Fried MD [facility] PalpitationsDiabetes mellitus, Type IIGERDDizzinessADHDScoliosi s; has [...] mcgregor [facility] oxygen saturation, oximetry 100 % [facility] pulse rate 95 /min [facility] blood pressure, cuff size regular Reji chelsea [facility] weight E&M 179.6 [lb_av] [facility] height E&M 64 [in_i] [facility] Body Mass Index (Ratio) 30.38 [...] Gruenenfe er weight E&M 162 [lb_av] Corry Merced Body Mass Index (Ratio) 27.80 kg/m2 Jer [...] USE Medication Status Instructions Dates Provider Indications [facility] ments Victoza 2-Librado 0.6 mg/0.1 mL (18 mg/3 mL) pen injector active Inject 0.6 mg subcutaneously once a day Grisel Soni [employer] G6 Sensor device active Apply 1 device [...] 1 TABLET BY MOUTH TWICE A DAY [facility] Specialist lansoprazole 15 mg capsule,delayed release(DR/EC) completed [...] completed once a day - Chrissy Matthewmiglia [facility] SOCIAL HISTORY Date Observation Value Provider [...] history of marijuana use no Chrissy Ventimiglia [facility] drug use no Chrissy Ventimig mayra [facility] alcohol use no Chrissy Ventimig mayra [facility] smoking status Never smoker Chrissy Ventim iglia [facility] drug use no Ward Fried MD [...] MD smoking status Never smoker Grisel Karson ahsby smoking status Never smoker Grisel Karson ashby [...] Payer name Policy type / Coverage type [place] red libertarian ID [employer] [id number] [place] MED[place] Medicare [id number] ADVANCE DIRECTIVES Name Date DISCUSSED - NO DECISION MADE TREATMENT PLAN Date Name Performer [id number],B, Ward Fried MD [id number],S,Per Dr Jonny Fried MD [id number],B, Ward Fried MD [id number], Ward Fried MD [id number],C, P shikha feels much better on Corlanor. [...] 1 capsule once a day Chrissy Emery [facility] Cardiology:poorly co ntrolled referred back to endocrine l pamellaestdeisy modification encouraged W ill resume Victoza as tolerated well in past and needs control of glucose to reduce cardiac risk factors and glycemic control. s he reports blood glucose as high as 558. Chrissy Ventimiglia [facility] Cardiology:continue corlanor Whitley jonas Ventimiglia [facility] Cardiology:Has repor ts of chest pain, SOB and palpitations. Also, associated with diaphoresis. S he has very uncontrolled blood glucose W ill plan routine stress test. Chrissy Ventimiglia [facility] Cardiology:Continues to have episodes of palpitations better with corlanor Chrissy Ventimiglia [facility] Cardiology:on Mounjaro Ward escobedo MD Cardiology:Needs [...]
--- NOTE | 2024-12-03 16:52 | ED_ITS ---
HPI - Ear Problem General Chief complaint: Ear Stated complaint: Bleeding from both ears-sent by [facility] Time Seen by Provider: 12/03/24 16:54 Source: patient Mode of arrival: ambulatory Limitations: no limitations History of Present Illness HPI Narrative: Patient is a 24 y/o female who presents to the ED with c/o fawn ear pain and bleeding. Patient reports she cleaned her ears with Q-tips this morning and noticed blood on both Q-tips. She returned urgent care was referred to the ED for further evaluation. Patient reports pain to bilateral ears. Denies drainage. Denies fevers. Has taken Tylenol for the pain. She is currently 10 weeks gestation. Denies vaginal bleeding. Related Data Home Medications ?Medication ?Instructions ?Recorded ?Confirmed ?Last Taken ?Type blood sugar diagnostic (OneTouch 03/23/21 11/11/24 Unknown History Ultra Test strips) blood-glucose meter (OneTouch 03/23/21 11/11/24 Unknown History Ultra2 Meter) cetirizine 10 mg tablet 10 mg PO DAILY PRN allergies 03/23/21 11/11/24 Unknown History lancets 33 gauge (OneTouch Delica 03/23/21 11/11/24 Unknown History Plus Lancet) pen needle, diabetic 31 gauge x 03/23/21 11/11/24 Unknown History 10/31 (BD Ultra-Fine Short Pen Needle) metformin 500 mg tablet 500 mg PO DAILY 06/13/23 11/11/24 Unknown History ivabradine 5 mg tablet (Corlanor) 5 mg PO BID 01/02/24 05/06/24 Unknown History Allergies Allergy/AdvReac Type Severity Reaction Status Date / Time acetaminophen (From Contac Allergy Mild Rash Verified 12/03/24 14:30 Day/Night Allergy/Sinus) chlorpheniramine (From Vicks Allergy Mild Rash Verified 12/03/24 14:30 DayQuil) dextromethorphan (From Allergy Mild Rash Verified 12/03/24 14:30 Contac Day/Night Allergy/Sinus) diphenhydramine (From Contac Allergy Mild Rash Verified 12/03/24 14:30 Day/Night Allergy/Sinus) phenylpropanolamine (From Allergy Mild Rash Verified 12/03/24 14:30 Vicks DayQuil) mold Allergy Unknown Unknown Verified 11/11/24 13:42 ragweed pollen Allergy Unknown Unknown Verified 11/11/24 13:42 guaifenesin (From Robitussin) Allergy Hives Verified 11/11/24 13:42 pepper (genus Capsicum) Allergy Rash Verified 11/11/24 13:42 semaglutide (From Ozempic) AdvReac Severe Nausea and Verified 11/11/24 13:42 Vomiting clortermine AdvReac Mild Itching Verified 11/11/24 13:42 ibuprofen (From DayQuil AdvReac Itching Verified 11/11/24 13:42 Sinus Pressure/Pain) pseudoephedrine (From AdvReac Itching Verified 11/11/24 13:42 DayQuil Sinus Pressure/Pain) food dye Allergy Mild Rash Uncoded 12/03/24 14:30 chlortrimeton Allergy Unknown Rash Uncoded 11/11/24 13:42 zpack Allergy hives Uncoded 11/11/24 13:42 Review of Systems Review of Systems: All systems reviewed & are unremarkable except as noted in HPI. All systems reviewed & are unremarkable except as noted in HPI and below PMFSH Past Medical History Medical History Diabetes mellitus type 2 in obese Obesity Epigastric pain Belching Dysphagia Type 2 diabetes mellitus Acid reflux ADHD Asthma Depression Dyslexia Surgical History Surgical History Previous back surgery Family History Family History Grandparent Diabetes mellitus Family history of hypercholesterolemia Hypertension Father Diabetes mellitus Mother Morbid obesity Asthma Sibling No problems noted. Social History Social History Smoking status: Never smoker Second hand tobacco smoke exposure: No Alcohol intake: never Substance use: former Substance use type: marijuana Last use: once a month Do You Feel Safe in your Home?: Yes Lack of Transportation: No Lack of Food: Never True Current Housing: I Have Housing Concerned About Future Housing: No Difficulty Paying Gas/Electric Bills: No Difficulty Paying for Meds: No Currently Unemployed: No Education: High School Diploma/GED Difficulty w/ Childcare or Family Care: No Living arrangements: with family Additional living arrangements comments: single Occupation/Education: unemployed Additional occupation/education comments: disabled Gender identity (if verbalized by the patient): Female Sexual Orientation (if Verbalized by the Patient): Straight or Heterosexual Spiritual care concerns: No Exam Narrative: GENERAL: Well appearing, well-nourished, non-toxic, in no acute distress. HEAD: Normocephalic, atraumatic. ENT: Fawn EAC slightly erythematous and inflamed. No bleeding. L TM normal. R TM slightly erythematous, non-bulging. RESPIRATORY: Airway patent, respirations nonlabored. CARDIOVASCULAR: Regular rate and rhythm MUSCULOSKELETAL: Moves all extremities. No gross deformities. SKIN: Warm, dry, normal color. NEURO: A&O X3. Speech clear. PSYCHIATRIC: Appropriate mood and affect. Normal interaction. Course Vital Signs Vital signs: Vital Signs Temperature 98.1 F 12/03/24 14:31 Pulse Rate 92 12/03/24 14:31 Respiratory Rate 18 12/03/24 14:31 Blood Pressure 99/68 L 12/03/24 14:31 Pulse Oximetry 100 12/03/24 14:31 Temperature 98.3 F 12/03/24 17:07 Pulse Rate 93 12/03/24 17:07 Respiratory Rate 18 12/03/24 17:07 Blood Pressure 102/58 L 12/03/24 17:07 Pulse Oximetry 99 12/03/24 17:07 Medical Decision Making MDM Narrative Medical decision making narrative: Exam consistent with AOE fawn, will Tx for such. Will also cover for potential AOM on R ear. Patient is currently , 10 weeks, no concerns for baby. Will start ciprodex ear drops and augmentin. Confirmed both safe in . Patient advised to avoid further objects into ear. Given return precautions. D/C in stable condition. Medical Records Medical records reviewed: Yes I reviewed the external patient's medical records. Vital Signs Vital Signs: Vital Signs Temperature 98.1 F 12/03/24 14:31 Pulse Rate 92 12/03/24 14:31 Respiratory Rate 18 12/03/24 14:31 Blood Pressure 99/68 L 12/03/24 14:31 Pulse Oximetry 100 12/03/24 14:31 Temperature 98.3 F 12/03/24 17:07 Pulse Rate 93 12/03/24 17:07 Respiratory Rate 18 12/03/24 17:07 Blood Pressure 102/58 L 12/03/24 17:07 Pulse Oximetry 99 12/03/24 17:07 Discharge Plan Discharge Clinical Impression: Acute pain of both ears, 10 weeks gestation of Otitis externa Qualifiers: Otitis externa type: unspecified type Chronicity: acute Laterality: bilateral Qualified Code(s): H60.503 - Unspecified acute noninfective otitis externa, bilateral Patient Disposition: Home Condition: Stable Instructions: Antibiotic Form, Swimmer's Ear (ED), Earache (ED) Additional Instructions: Take antibiotics as prescribed. Utilize antibiotic ear drops as prescribed. Continue Tylenol as needed for pain. Follow-up with your primary care doctor and/or OBGYN for further evaluation. Avoid cleaning or putting anything into ears. Return to the ED if you experience worsening or severe symptoms. Patient Language: Albanian Prescriptions: New ciprofloxacin-dexamethasone 0.3-0.1 % drops,suspension 4 drp EACH EAR Q12H 7 Days Qty: 7.5 0RF amoxicillin-pot clavulanate 875-125 mg tablet 1 tablet PO Q12H 7 Days Qty: 14 0RF No Action Corlanor 5 mg tablet 5 mg PO BID Rx Instructions: must administer with a meal/food ondansetron 4 mg tablet,disintegrating 4 mg PO Q6H PRN (Reason: nausea and vomiting) Qty: 30 2RF (DME) blood-glucose meter [OneTouch Ultra2 Meter] Misc MISCELLANEOUS cetirizine 10 mg tablet 10 mg PO DAILY PRN (Reason: allergies) (DME) OneTouch Ultra Test Strip MISCELLANEOUS (DME) pen needle, diabetic [BD Ultra-Fine Short Pen Needle] 31 gauge x 5/16 needle MISCELLANEOUS (DME) lancets [OneTouch Delica Plus Lancet] 33 gauge misc MISCELLANEOUS acetaminophen [Tylenol Extra Strength] 500 mg tablet 1,000 mg PO TID PRN (Reason: pain) Qty: 30 0RF albuterol sulfate 90 mcg/actuation HFA aerosol inhaler 2 puff inhalation QID PRN (Reason: shortness of breath or wheezing) Qty: 8.5 0RF epinephrine [EpiPen 2-Librado] 0.3 mg/0.3 mL auto-injector 0.3 mg IM ONCE Qty: 2 0RF Rx Instructions: as a single dose; may repeat once metformin 500 mg Tablet 500 mg PO DAILY Follow-up/Referrals: Maryanne,MD Hernan [Primary Care Provider] - Time of Disposition: 17:09
[2024-12-03 17:07] VITALS: BP 102/58; PULSE 93; RESP 18; TEMP 36.8; O2SAT 99
--- OUTSIDE RECORDS SUMMARY | 2024-12-03 17:48 | XMS_ITS | Encounter Summary ---
Author Organization [facility] Address [address] [place] [address] Care Team Providers Care Wet End Supervisor Name Role Phone Marcelle Hernandez MD Primary Care Provider [phone] Reason for Visit * Reason Onset Date Comments Scheduling 06/27/2019 Encounter Details Date Type Department Care Team (Late st Contact Info) Description 06/27/2019 Telephone [facility] [address] [place] [address] Mita Crum MD [address] [place] [id number] Scheduling Social History Tobacco Use Types Packs/Day Years Used Date Smoking Tobacco: Never Smokeless Tobacco: Never Alcohol Use Standard Drinks/Week Comments No 0 (1 standard drink = 0.6 oz pur e alcohol) Comments No Sex and Gender Information Value Date Recorded Sex Assigned at Not on file Legal Sex Female 5:45 AM MOTION PICTURE PROJECTIONIST APPRENTICE Gender Identity Not on file Sexual Orientation [...] would like prep mailed to her at: [address] [facility] [address] Of note: Pt has diabetes, and Mom says that they (she did not specify) will not prescribe her medicine until we perform the scope. However, she expressed understanding at having to reschedule. * Telephone Encounter - Ciera Peterson RN - 09/10/2019 3:00 PM CDT Discussed plan to reschedule EGD, mom is aware that director of blood will be calling to arrange. * Telephone Encounter - Mita Crum MD - 09/10/2019 2:56 PM CDT Unfortunately need to reschedule Violet's elective upper endoscopy for 2-3 months given COVID19 concerns * Telephone Encounter - Emily Lozano RN - 08/18/2019 10:51 AM MOTION PICTURE PROJECTIONIST APPRENTICE Verified orders in epic. Prep instructions given to family in clinic. ON PICTURE PROJECTIONIST APPRENTICE * Telephone Encounter - Nayeli Toledo - 08/18/2019 10:49 AM MOTION PICTURE PROJECTIONIST APPRENTICE Spoke with Stephanie in the clinic, scheduled EGD for 09/19/2019 @ 2:[address] Crum. ON PICTURE PROJECTIONIST APPRENTICE * Telephone Encounter - Glenna Calderon RN - 06/27/2019 1:28 PM CST Patient will need appointment with with MD before any procedures are ordered/scheduled. Will route to scheduling. May schedule with any provider as it has been so long since she has been seen. ON PICTURE PROJECTIONIST APPRENTICE * Telephone Encounter - Felisa Ramesh - 06/27/2019 1:22 PM CST Mom called and left a message that Dr. Madsen from [facility] is referring this pt to Dr. Crum. Mom says that Dr. Madsen wants the pt to have an upper GI scheduled before she will give medication. ON PICTURE PROJECTIONIST APPRENTICE documented in this encounter Plan of Treatment Upcoming Encounters Date Type Department Care Team (Late st Contact Info) Description 12/08/2024 11:00 AM CDT Appointment [facility] MATERNAL/ EVALUATION UNIT [address] [place] [address] 12/08/2024 11:30 AM CDT Appointment [facility] MATERNAL/ EVALUATION UNIT [address] [place] [address] [address] [place] [address] 02/09/2025 10:30 AM CDT Appointment [facility] MATERNAL/ EVALUATION UNIT [address] [place] [address] Ave[address] [place] [address] documented as of this encounter Visit Diagnoses Not on filedocumented in this encounter Additional Health Concerns Infection Onset Date Last Indicated Resolved Time COVID-19 Under Investigation 12/22/2019 12/23/2019 12/24/2019 2:58 PM CDT documented as of this encounter Care Teams Wet End Supervisor Relationship Specialty Start Date End Date Marcelle Hernandez MD [address] [facility] [address] [place] [address] PCP - General Pediatrics 12/27/15 09/30/24 documented as of this encounter
--- OUTSIDE RECORDS SUMMARY | 2024-12-03 17:48 | XMS_ITS | Encounter Summary ---
Author Organization [facility] Address [address] [place] [address] Care Team Providers Care Digital Advisor Name Role Phone Marcelle Hernandez MD Primary Care Provider [phone] Encounter Details Date Type Department Care Team (Late st Contact Info) Description 09/17/2019 Telephone [facility] Pediatrics - Diabetes [address] [address] Camron Brandon, SOIL CONSERVATION TECHNICIAN-WINDER TENDER [address] [place] [phone] Social History Tobacco Use Types Packs/Day Years Used Date Smoking Tobacco: Never Smokeless Tobacco: Never Alcohol Use Standard Drinks/Week Comments No 0 (1 standard drink = 0.6 oz pur e alcohol) Comments No Sex and Gender Information Value Date Recorded Sex Assigned at Not on file Legal Sex Female 5:45 AM PHILATELIC CONSULTANT Gender Identity Not on file Sexual Orientation [...] Info) Description 12/08/2024 11:00 AM CDT Appointment [facility] MATERNAL/ EVALUATION UNIT [facility] [address] [place] [address] 12/08/2024 11:30 AM CDT Appointment [facility] MATERNAL/ EVALUATION UNIT [facility] [address] [place] [address] 02/09/2025 10:30 AM CDT Appointment [facility] MATERNAL/ EVALUATION UNIT [address] [place] [address] Ave[address] [place] [address] documented as of this encounter Visit Diagnoses Not on filedocumented in this encounter Additional Health Concerns Infection Onset Date Last Indicated Resolved Time COVID-19 Under Investigation 12/22/2019 12/23/2019 12/24/2019 2:58 PM CDT documented as of this encounter Care Teams Digital Advisor Relationship Specialty Start Date End Date Marcelle Hernandez MD [address] [facility] [address] [place] [address] PCP - General Pediatrics 12/27/15 09/30/24 documented as of this encounter
--- OUTSIDE RECORDS SUMMARY | 2024-12-03 17:49 | XMS_ITS | Clinical Summary ---
Author Organization [facility] Address [address] [place] [address] Care Team Providers Care Lens Grinder Rough Name Role Phone Hernan Madden MD Primary [...] Abstract 10/16/2024 10:15 AM CDT Office Visit [facility] Oncology and Hematology - [place] [address] [place] [address] Mike Llanes MD Leukocytosis, unspecified type (Primary Dx) 10/16/2024 Orders Only [facility] Oncology and Hematology - [place] [address] [place] [address] Mike Llanes MD 09/30/2024 External Device Data [...] on file Legal Sex Female 1:45 PM AEROSPACE STRESS ENGINEER Gender Identity Not on file Sexual Orientation [...] 167.6 cm (5' 6) 06/12/2024 11:49 AM AEROSPACE STRESS ENGINEER Body Mass Index 27.18 06/12/2024 11:49 AM AEROSPACE STRESS ENGINEER Plan of Treatment Upcoming Encounters Date Type Department Care Team (Late st Contact Info) Description 04/23/2025 11:00 AM AEROSPACE STRESS ENGINEER Office Visit [facility] Oncology and Hematology - [place] [address] [facility] [address] [place] [address] Mike Llanes MD [address] [facility] [address] [place] [address] Health Maintenance Due Date Last [...] Months Insurance MEDICARE PART A AND B [facility] Care Teams Lens Grinder Rough Relationship Specialty Start Date End Date Hernan Madden MD [address] [place] [address] [address] [place] [phone] PCP - General Internal Medicine 06/27/24
--- OUTSIDE RECORDS SUMMARY | 2024-12-03 17:49 | XMS_ITS | Encounter Summary ---
Author Organization [facility] Address [address] [place] [address] Care Team Providers Care Flowers Salesperson Name Role Phone Unavailable Primary Care Provider Unavailabl e Encounter Details Date Type Department Care Team (Late st Contact Info) Description 12/03/2024 Results Follow-Up [facility] MATERNAL/ EVALUATION UNIT [address] [facility] [address] [place] [address] Castillo Shah MD [address] [facility] Obstetric[place] [address] Social History Tobacco Use Types [...] care, and heating? Not very hard 11/24/2024 [facility] [place] of Occupat ional Health - Occupational Stress [...] things needed for daily living? No 11/24/2024 Linneus Depression Scale Answer Date Recorded Linneus Depression Scale Total 2 11/24/2024 The thought [...] any time in the past 12 m [facility], were you homeless or living in a halfway (including now)? No 11/24/2024 Estimated Date of Delivery Comme nts Yes 06/29/2025 Based on Ultraso und Sex and Gender Information Value Date Recorded Sex Assigned at Not on file Legal Sex Female 5:45 AM NECK PINNER Gender Identity Not on file Sexual Orientation [...] Info) Description 12/08/2024 11:00 AM CDT Appointment [facility] MATERNAL/ EVALUATION UNIT [address] [place] [address] 12/08/2024 11:30 AM CDT Appointment [facility] MATERNAL/ EVALUATION UNIT [address] [place] [address] 02/09/2025 10:30 AM CDT Appointment [facility] MATERNAL/ EVALUATION UNIT [address] [place] [address] documented as of this encounter Visit Diagnoses Not on filedocumented in this encounter
--- OUTSIDE RECORDS SUMMARY | 2024-12-03 17:49 | XMS_ITS | Encounter Summary ---
Author Organization [facility] Address [address] [facility] [place] [address] Care Team Providers Care Coil Tier Name Role Phone Unavailable Primary Care Provider Unavailabl e Encounter Details Date Type Department Care Team (Late st Contact Info) Description 11/28/2024 Orders Only [facility] MATERNAL/ EVALUATION UNIT [address] [facility] [place] [address] Garrett Ramirez, LailaD Social History Tobacco Use [...] care, and heating? Not very hard 11/24/2024 [facility] [place] of Occupat ional Health - Occupational Stress [...] things needed for daily living? No 11/24/2024 [place] Depression Scale Answer Date Recorded [place] Depression Scale Total 2 11/24/2024 The thought [...] any time in the past 12 m [facility], were you homeless or living in a half-way (including now)? No 11/24/2024 Estimated Date of Delivery Comme nts Yes 06/29/2025 Based on Ultraso und Sex and Gender Information Value Date Recorded Sex Assigned at Not on file Legal Sex Female 5:45 AM PARKING WORKER Gender Identity Not on file Sexual [...] Info) Description 12/08/2024 11:00 AM CDT [facility]ment [facility] UN[facility] [address] [place] [address] 12/08/2024 11:30 AM CDT [facility]ment [facility] [address] [place] [address] 02/09/2025 10:30 AM CDT Appointment [facility] [address] [place] [address] documented as of this encounter Visit Diagnoses Not on filedocumented in this encounter
--- OUTSIDE RECORDS SUMMARY | 2024-12-03 17:49 | XMS_ITS | Clinical Summary ---
Author Organization [facility] ospital Address [address] [place] [address] Care Team Providers Care Fraud Investigator Name Role Phone Sukhwinder Madden MD Primary [...] Cartridge) 30 gauge combo pack 30 each french pastry cook before breakfast 3 each 3 3 Active [...] 08/04/2021 Assessment & Plan (05/31/2023 4:15 PM MARINE SERVICE OPERATOR): Hba1c was Lab Results Component Value [...] on file Legal Sex Female 12:00 PM MARINE SERVICE OPERATOR Gender Identity Not on file Sexual Orientation Not on file Obstetrics History Last Filed Vital Signs Vital Sign Reading Time Taken Comments Blood Pressure 120/70 05/31/2023 2:17 PM MARINE SERVICE OPERATOR Pulse 105 05/31/2023 2:17 PM MARINE SERVICE OPERATOR Temperature - - Respiratory Rate 18 05/31/2023 2:17 PM MARINE SERVICE OPERATOR Oxygen Saturation - - Inhaled Oxygen Concentration - - Weight 80.7 kg (178 lb) 05/31/2023 2:17 PM MARINE SERVICE OPERATOR Height 166.4 cm (5' 5.5) 05/31/2023 2:17 PM MARINE SERVICE OPERATOR Body Mass Index 29.17 05/31/2023 2:17 PM MARINE SERVICE OPERATOR Plan of Treatment Health Maintenance Due [...] HEMOGLOBIN A1C Routine 05/31/2023 2 :17 PM MARINE SERVICE OPERATOR Type 2 diabetes mellitus with hyperglycemia, with long-term current use of insulin (HCC) from Last 3 Months or Most Recently Relevant to Health Maintenance Results * (ABNORMAL) POCT hemoglobin A1c (05/31/2023 2:17 PM MARINE SERVICE OPERATOR) Hemoglobin A1C, POC 7.5 % Blood spot 05/31/2023 2:17 PM MARINE SERVICE OPERATOR Marco Antonio Geller MD POINT OF CARE TEST ORDERABLES Fi nal Result from Last 3 Months or Most Recently Relevant to Health Maintenance Insurance MEDICARE [facility] [place] MEDICARE [facility] [place] Care Teams Fraud Investigator Relationship Specialty Start Date End Date Sukhwinder Madden MD [address] [place] [address] PCP - General Internal Medicine 04/27/22
--- OUTSIDE RECORDS SUMMARY | 2024-12-03 17:49 | XMS_ITS | Encounter Summary ---
Author Organization [facility] Address [address] [place] [address] Care Team Providers Care System Configuration Specialist Name Role Phone Unavailable Primary Care Provider Unavailabl e Encounter Details Date Type Department Care Team (Late st Contact Info) Description 12/03/2024 Orders Only [facility] PHYS OB [address] [place], [place] [id number] Castillo Shah MD [address] [facility] Obstetrics [place] [id number] Social History Tobacco Use Types Packs/Day Years [...] care, and heating? Not very hard 11/24/2024 [facility] [place] of Occupat ional Health - Occupational Stress [...] things needed for daily living? No 11/24/2024 [place] Depression Scale Answer Date Recorded [place] Depression Scale Total 2 11/24/2024 The thought [...] any time in the past 12 m [facility], were you homeless or living in a group home (including now)? No 11/24/2024 Estimated Date of Delivery Comme nts Yes 06/29/2025 Based on Ultraso und Sex and Gender Information Value Date Recorded Sex Assigned at Not on file Legal Sex Female 5:45 AM BELLHOP Gender Identity Not on file Sexual Orientation [...] Info) Description 12/08/2024 11:00 AM CDT Appointment [facility]/ EVALUATION UNIT [address] [place] [address] 12/08/2024 11:30 AM CDT Appointment [facility]/ [facility]ATION UNIT [address] [place] [address] 02/09/2025 10:30 AM CDT Appointment [facility]/ EVALUATION UNIT [address] [place] [address] documented as of this encounter Visit Diagnoses Not on filedocumented in this encounter
--- OUTSIDE RECORDS SUMMARY | 2024-12-03 17:49 | XMS_ITS | Encounter Summary ---
Author Organization [facility] Address [address] [facility] [place] [address] Care Team Providers Care Scalp Treatment Operator Name Role Phone Unavailable Primary Care Provider Unavailabl e Encounter Details Date Type Department Care Team (Late st Contact Info) Description 11/27/2024 Results Follow-Up [facility]/ EVALUATION UNIT [address] [facility] [place] [address] Ck Bansal MD [address] [place] [address] Social History Tobacco Use Types Packs/Day Years [...] care, and heating? Not very hard 11/24/2024 [facility] [place] of Occupat ional Health - Occupational Stress [...] things needed for daily living? No 11/24/2024 [place] Depression Scale Answer Date Recorded [place] Depression Scale Total 2 11/24/2024 The thought [...] any time in the past 12 m [facility], were you homeless or living in a longterm (including now)? No 11/24/2024 Estimated Date of Delivery Comme nts Yes 06/29/2025 Based on Ultraso und Sex and Gender Information Value Date Recorded Sex Assigned at Not on file Legal Sex Female 5:45 AM AUTOMOTIVE PARTS COUNTERPERSON Gender Identity Not on file Sexual Orientation [...] Info) Description 12/08/2024 11:00 AM CDT Appointment [facility]/ EVALUATION UNIT [address] [place] [address] 12/08/2024 11:30 AM CDT Appointment [facility]/ EVALUATION UNIT [address] [place] [address] 02/09/2025 10:30 AM CDT Appointment [facility]/ EVALUATION UNIT [address] [place] [address] documented as of this encounter Visit Diagnoses Not on filedocumented in this encounter
--- OUTSIDE RECORDS SUMMARY | 2024-12-03 17:49 | XMS_ITS | Referral Summary ---
Author Organization [facility] o[facility] Address [address] [place] [address] Care Team Providers Care Leasing Manager Name Role Phone Sukhwinder Madden MD Primary [...] Cartridge) 30 gauge combo pack 30 each marketing information coordinator before breakfast 3 each 3 3 [...] 08/04/2021 Assessment & Plan (05/31/2023 4:15 PM MAIL TECHNICIAN): Hba1c was Lab Results Component Value Date [...] on file Legal Sex Female 12:00 PM MAIL TECHNICIAN Gender Identity Not on file Sexual Orientation Not on file Last Filed Vital Signs Vital Sign Reading Time Taken Comments Blood Pressure 120/70 05/31/2023 2:17 PM MAIL TECHNICIAN Pulse 105 05/31/2023 2:17 PM MAIL TECHNICIAN Temperature - - Respiratory Rate 18 05/31/2023 2:17 PM MAIL TECHNICIAN Oxygen Saturation - - Inhaled Oxygen Concentration - - Weight 80.7 kg (178 lb) 05/31/2023 2:17 PM MAIL TECHNICIAN Height 166.4 cm (5' 5.5) 05/31/2023 2:17 PM MAIL TECHNICIAN Body Mass Index 29.17 05/31/2023 2:17 PM MAIL TECHNICIAN Plan of Treatment Not on file Procedures Procedure Name Priority Date/Time Associated Diagnosis Comments POCT HEMOGLOBIN A1C Routine 05/31/2023 2 :17 PM MAIL TECHNICIAN Type 2 diabetes mellitus with hyperglycemia, with long-term current use of insulin (HCC) from Last 3 Months or Most Recently Relevant to Health Maintenance Results * (ABNORMAL) POCT hemoglobin A1c (05/31/2023 2:17 PM MAIL TECHNICIAN) Hemoglobin A1C, POC 7.5 % Blood spot 05/31/2023 2:17 PM MAIL TECHNICIAN Marco Antonio Geller MD POINT OF CARE TEST ORDERABLES Fi nal Result from Last 3 Months or Most Recently Relevant to Health Maintenance Insurance MEDICARE [facility] MEDICARE [employer] Care Teams Leasing Manager Relationship Specialty Start Date End Date Sukhwinder Madden MD [address] [place] [address] PCP - General Internal Medicine 04/27/22
--- OUTSIDE RECORDS SUMMARY | 2024-12-03 17:49 | XMS_ITS | Clinical Summary ---
Author Organization [facility] [employer] Address [address] [place] [address] Care Team Providers Care Cafeteria Manager Name Role Phone Unavailable Primary Care Provider Unavailabl e Source Comments [facility],non-owned Affiliates and Associated Physician Practices is amultiple site organization consisting of ambulatory clinics and hospital sitesin [place], [place], [place] and [place]. This disclosure is being madepursuant to the Care Everywhere program and may not contain all information available regarding this patient. Last updated 18.[facility] [employer] Allergies Active Allergy Reactions Criticality Noted Date [...] type 2 diabetes in first trimester ([facility]) Use 1 (one) strip as directed 100 strip 11/25/19 25 Active lancetsIndicati ons: complicated by pre-existing type 2 diabetes in first trimester ([facility]) Use 1 (one) Each 4 times daily [...] Patient not taking.Reason: Patient adjusted (Unable to pickle cutter from pharmacy), Reported on 12/01/2024 budesonide-form oterol [...] Discontinu ed(List Clean-Up) Blood Glucose Monitoring Suppl (OonairIO IQ SYSTEM) w/Device KIT Use 1 kit [...] Glucagon (Baqsimi One Pack) 3 MG/DOSE POWD [place] 1 Each into the nose as needed [...] Department Care Team Description 12/03/2024 Results Follow-Up [facility]/ [facility]ATION UN[facility] [address] [place] [address] Castillo Shah MD 12/03/2024 Orders Only [facility] PHYS OB [address] [place] [address] Castillo Shah MD 12/01/2024 10:00 AM CDT Hospital Encounter [facility] [address] [place] [address] Sourav Jaimes MD Discharge Disposition: Home or Self Care 12/01/2024 10:00 AM CDT Hospital Encounter [facility] [address] [place] [address] Sourav Jaimes MD Discharge Disposition: Home or Self Care 12/01/2024 10:00 AM CDT Hospital Encounter [facility] [address] [place] [address] Sourav Jaimes MD Discharge Disposition: Home or Self Care 12/01/2024 Travel 11/28/2024 Orders Only [facility] [address] [place] [address] Garrett Ramirez PharmD 11/27/2024 Results Follow-Up [facility] [address] [place] [address] Ck Bansal MD 11/27/2024 Telephone [facility] [address] [place] [address] Ck Bansal MD Results 11/24/2024 8:14 AM CDT - 11/24/2024 11:59 PM CDT Hospital Encounter [facility] [address] [place] [address] Anna Alvarado MD Discharge Disposition: Home or Self Care 11/24/2024 8:12 AM CDT - 11/24/2024 8:13 AM CDT Hospital Encounter [facility] [address] [place] [address] Anna Alvarado MD Discharge Disposition: Home or Self Care 11/24/2024 8:11 AM CDT Hospital Encounter [facility] [address] [place] [address] Anna Alvarado MD Discharge Disposition: Home or Self Care 11/24/2024 8:09 AM CDT - 11/24/2024 8:10 AM CDT Hospital Encounter [facility] [address] [place] [address] Harpreet Alvares DO Discharge Disposition: Home or Self Care 11/24/2024 Travel 11/17/2024 Telephone [facility] [address] [place] [address] Glenna Snell, manufacturing machine operator 11/14/2024 Telephone [facility] [address] [place] [address] Alma Temple, manufacturing machine operator from Last 3 Months Immunizations Immunization Administration [...] care, and heating? Not very hard 11/24/2024 [facility] - Occupational Stress Questionnaire Answer Date [...] things needed for daily living? No 11/24/2024 [place] Depression Scale Answer Date Recorded [place] Depression Scale Total 2 11/24/2024 The thought [...] any time in the past 12 m [facility], were you homeless or living in a long-term (including now)? 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 [place] [address] 12/08/2024 11:30 AM CDT Appointment [facility] [address] [place] [address] [address] [place] [address] 02/09/2025 10:30 AM CDT Appointment [facility] [address] [place], [place] [address] [place] [address] Health Maintenance Due Date Last Done Comments [...] 2 diabetes mellitus without complication, unspecified whether intermediate school teacher insulin use (HCC) URINALYSIS REFLEX MICROSCOPIC REFLEX CULTURE STAT 12/01/2024 12:24 PM CDT Type 2 diabetes mellitus without complication, unspecified whether halfway insulin use (HCC) COMPREHENSIVE METABOLIC PANEL STAT 12/01/2024 12:24 PM CDT Type 2 diabetes mellitus without complication, unspecified whether intermediate school teacher insulin use (HCC) PROTEIN CREATININE RATIO URINE RANDOM PNL STAT 12/01/2024 12:24 PM CDT Type 2 diabetes mellitus without complication, unspecified whether halfway insulin use (HCC) CULTURE URINE STAT 12/01/2024 12:24 PM CDT Type 2 diabetes mellitus without complication, unspecified whether intermediate school teacher insulin use (HCC) PROTEIN URINE TIMED QUANTITATIVE [...] Yellow Yellow, Straw 12/01/2024 1:34 PM CDT [facility] Clarity UA Clear Clear 12/01/2024 1:34 PM CDT [facility] Glucose UA Normal Normal 12/01/2024 1:34 PM CDT [facility] Bilirubin UA Negative Negative 12/01/2024 1:34 PM CDT [facility] Ketone UA Negative Negative 12/01/2024 1:34 PM CDT [facility] Specific [place] UA 1.024 1.005 - 1.030 12/01/2024 1:34 PM CDT [facility] Blood UA Negative Negative 12/01/2024 1:34 PM CDT [facility] pH UA 6.5 5.0 - 8.0 12/01/2024 1:34 PM CDT [facility] Protein UA Negative Negative 12/01/2024 1:34 PM CDT [facility] Urobilinogen UA Normal Normal mg/dL 12/01/2024 1:34 PM CDT [facility] Nitrite UA Negative Negative 12/01/2024 1:34 PM CDT [facility] Leukocyte Esterase UA 25 GOPAL/uL(A) Negative 12/01/2024 1:34 PM CDT [facility] RBC UA 3-5 0 - 5 # /hpf 12/01/2024 1:34 PM CDT [facility] WBC UA 0-5 0 - 5 # /hpf 12/01/2024 1:34 PM CDT [facility] Bacteria UA Trace(A) None Seen 12/01/2024 1:34 PM CDT [facility] Squamous Epithelial Cells 3-5 0 - 5 /hpf 12/01/2024 1:34 PM CDT [facility] Mucus UA 2+ /LPF 12/01/2024 1:34 PM CDT [facility] Hyaline Casts 0-2 0 - 2 /LPF 12/01/2024 1:34 PM CDT [facility] Reflex Status Culture to follow 12/01/2024 1:34 PM CDT [facility] Urine URINE SPECIMEN OBTAINED BY CLEAN CATCH PROCEDURE / Unknown Collection / Unknown 12/01/2024 12:24 PM CDT 12/01/2024 1:24 PM CDT Narrative [facility] - 12/01/2024 1:34 PM CDT us Sourav Jaimes MD LAB - URINALYSIS ORDERABLES Fin al Result Performing Organization Address [facility]/ZIP Co de Phone Number [facility] [address] [place] [address] * (ABNORMAL) CULTURE URINE (12/01/2024 12:24 PM CDT) Only the most recent of2 resultswithin the time period is included. Culture Urine 10,000-50,000 CFU/mL Streptococcus agalactiae (Group B)(A) 12/03/2024 4:20 AM CDT [facility] Culture Urine <10,000 CFU/mL urogenital khloe 12/03/2024 4:20 AM CDT [facility] Urine URINE SPECIMEN OBTAINED BY CLEAN CATCH PROCEDURE / Unknown Collection / Unknown 12/01/2024 12:24 PM CDT 12/01/2024 1:24 PM CDT Narrative [facility] - 12/03/2024 4:20 AM CDT Susceptibility testing of penicillin, other beta-lactam antibiotics, and vancomycin is not necessary for beta-hemolytic streptococci groups A,B,C and G because resistant strains have not been recognized. Sourav Jaimes MD LAB - MICROBIOLOGY ORDERABLES F inal Result Performing Organization Address [facility] Co de Phone Number [facility] [address] [phone] * (ABNORMAL) CBC W/O DIFFERENTIAL (12/01/2024 12:24 PM CDT) WBC 9.4 4.0 - 10.7 x10E9/L 12/01/2024 2:46 PM CDT [facility] RBC Count 4.09 3.90 - 5.20 x10E12/L 12/01/2024 2:46 PM CDT [facility] Hemoglobin 11.7(L) 11.9 - 15.8 g/dL 12/01/2024 2:46 PM CDT [facility] Hematocrit 36.5 34.8 - 46.1 % 12/01/2024 2:46 PM CDT [facility] MCV 89.2 80.0 - 98.0 fL 12/01/2024 2:46 PM CDT [facility] MCH 28.6 26.7 - 33.6 pg 12/01/2024 2:46 PM CDT [facility] MCHC 32.1 31.7 - 36.3 g/dL 12/01/2024 2:46 PM CDT [facility] RDW-CV 12.8 11.3 - 14.8 % 12/01/2024 2:46 PM CDT [facility] Platelet Count 283 150 - 420 x10E9/L 12/01/2024 2:46 PM CDT [facility] MPV 10.0 7.8 - 11.4 fL 12/01/2024 2:46 PM CDT [facility] Blood BLOOD SPECIMEN / Unknown Venipuncture / Unknown 12/01/2024 12:24 PM CDT 12/01/2024 1:58 PM CDT Sourav Jaimes MD LAB - HEMATOLOGY ORDERABLES Fin al Result [facility] [address] [place] [address] * (ABNORMAL) COMPREHENSIVE METABOLIC PANEL (12/01/2024 12:24 PM CDT) Glucose 88 70 - 99 mg/dL 12/01/2024 2:30 PM CDT [facility] Sodium 137 136 - 145 mmol/L 12/01/2024 2:30 PM CDT [facility] Potassium 4.4 3.5 - 5.1 mmol/L 12/01/2024 2:30 PM CDT [facility] Chloride 109(H) 98 - 107 mmol/L 12/01/2024 2:30 PM CDT [facility] CO2 19(L) 22 - 29 mmol/L 12/01/2024 2:30 PM CDT [facility] Calcium 9.4 8.4 - 10.4 mg/dL 12/01/2024 2:30 PM CDT [facility] Anion Gap 9 6 - 16 mmol/L 12/01/2024 2:30 PM CDT [facility] BUN 7 5.3 - 18.7 mg/dL 12/01/2024 2:30 PM CDT [facility] Creatinine 0.57 0.57 - 1.11 mg/dL 12/01/2024 2:30 PM CDT [facility] Alkaline Phosphatase 53 40 - 150 U/L 12/01/2024 2:30 PM CDT [facility] ALT 10 6 - 57 U/L 12/01/2024 2:30 PM CDT [facility] AST 28 10 - 48 U/L 12/01/2024 2:30 PM CDT [facility] Protein Total 6.7 6.4 - 8.3 gm/dL 12/01/2024 2:30 PM CDT [facility] Albumin 4.1 3.1 - 4.5 gm/dL 12/01/2024 2:30 PM CDT [facility] Bilirubin Total 0.3 0.2 - 1.2 mg/dL 12/01/2024 2:30 PM CDT [facility] eGFR by CKD-EPI >90 >=90 mL/min/1.7 3 m2 12/01/2024 2:30 PM CDT [facility] Blood BLOOD SPECIMEN / Unknown Venipuncture / Unknown 12/01/2024 12:24 PM CDT 12/01/2024 2:18 PM CDT Sourav Jaimes MD LAB - CHEMISTRY ORDERABLES Yanet monson Result [facility] [address] [place] [address] * PROTEIN CREATININE RATIO URINE RANDOM PNL (12/01/2024 12:24 PM CDT) Protein Urine 10.4 <11.9 mg/dL 12/01/2024 1:51 PM CDT [facility] Creatinine Urine 137.02 mg/dL 12/01/2024 1:51 PM CDT [facility] Protein/Creatin ine Ratio Urine 0.08 12/01/2024 1:51 PM CDT [facility] Urine URINE SPECIMEN OBTAINED BY CLEAN CATCH PROCEDURE / Unknown Collection / Unknown 12/01/2024 12:24 PM CDT 12/01/2024 1:24 PM CDT Sourav Jaimes MD LAB - URINE CHEMISTRY ORDERABLE S Final Result Performing Organization Address [facility]/ZIP Co de Phone Number [facility] [address] [place] [id number] * PROTEIN URINE TIMED QUANTITATIVE (12/01/2024 10:13 AM CDT) Volume 24 Hour Urine 2,000 mL 12/01/2024 11:56 AM CDT [facility] Collection Time Hours 24 hrs 12/01/2024 11:56 AM CDT [facility] Protein 24 Hour Urine 12/01/2024 11:56 AM CDT [facility] Comment:Unable to calculate due to limited levels of measurable protein. Protein Urine <6.8 <11.9 mg/dL 12/01/2024 11:56 AM CDT [facility] Urine TIMED URINE SPECIMEN / Unknown Timed Urine Volume Measurement / Unknown 12/01/2024 10:13 AM CDT 12/01/2024 11:40 AM CDT Sourav Jaimes MD LAB - URINE CHEMISTRY ORDERABLE S Final Result Performing Organization Address [facility] Co de Phone Number [facility] [address] [place] [id number] * URINALYSIS - POCT (IP) BEAKER INTERFACE (12/01/2024 10:11 AM CDT) Only the most recent of2 resultswithin the time period is included. Color UA POCT Yellow Straw, Yellow, Dark Yellow, Light Yellow 12/01/2024 10:14 AM CDT [facility] Clarity UA POCT Clear Clear 10:14 AM CDT [facility] Specific [place] UA POCT 1.025 1.005 - 1.030 12/01/2024 10:14 AM CDT [facility] pH UA POCT 6.0 5.0 - 8.0 pH 12/01/2024 10:14 AM CDT [facility] Protein UA POCT Negative Negative 10:14 AM CDT [facility] Blood UA POCT Negative Negative 12/01/2024 10:14 AM CDT [facility] Leukocyte UA POCT Negative Negative 12/01/2024 10:14 AM CDT [facility] Nitrite UA POCT Negative Negative 5 10:14 AM CDT [facility] Glucose UA POCT Negative Negative 5 10:14 AM CDT [facility] Ketone UA POCT Negative Negative 12/01/2024 10:14 AM CDT [facility] Bilirubin UA POCT Negative Negative 12/01/2024 10:14 AM CDT [facility] Urobilinogen UA POCT 0.2 0.1 - 1.0 EU/dL 12/01/2024 10:14 AM CDT [facility] Urine URINE / Unknown 12/01/2024 1 0:11 AM CDT 12/01/2024 10:14 AM CDT us Sourav Jaimes MD LAB - POINT OF CARE ORDERABLES Final Result Performing Organization Address City/[facility]/ZIP Co de Phone Number [facility] [address] [place] [address] * TRICHOMONAS VAGINALIS IRA (11/24/2024 11:20 AM CDT) Trichomonas by IRA NEGATIVE NEGATIVE 11/25/2024 7:30 AM CDT [facility] Microbiology ENTIRE ENDOCERVIX / Unknown Collection / Unknown 11/24/2024 11:20 AM CDT 11/24/2024 12:00 PM CDT Narrative [facility] - 11/25/2024 7:30 AM CDT This test performed by Qualitative real-time Polymerase Chain Reaction (PCR). us Anna Alvarado MD LAB - MICROBIOL OGY ORDERABLES Final Result [facility] [address] [place] [address], [facility] [phone] * CHLAMYDIA AND N. GONORRHOEAE IRA (11/24/2024 11:20 AM CDT) Chlamydia by IRA NEGATIVE NEGATIVE 11/25/2024 7:28 AM CDT [facility] Neisseria gonorrhoeae IRA NEGATIVE NEGATIVE 11/25/2024 7:28 AM CDT [facility] Microbiology ENTIRE ENDOCERVIX / Unknown Collection / Unknown 11/24/2024 11:20 AM CDT 11/24/2024 12:00 PM CDT Narrative [facility] - 11/25/2024 7:28 AM CDT This test performed by Qualitative real-time Polymerase Chain Reaction (PCR). us Anna Alvarado MD LAB - MICROBIOL OGY ORDERABLES Final Result [facility] [address] [place] [address], [facility] [phone] * PAP IG LB RFLX HPV APTIMA ASCU (11/24/2024 11:20 AM CDT) Diagnosis Comment 11/27/2024 4:11 PM CDT [facility] ([facility]) Comment:NEGATIVE FOR INTRAEP ITHELIAL LESION OR MALIGNANCY. Specimen Adequacy Comment 025 4:11 PM CDT [facility] ([facility]) Comment: Satisfactory for evaluation. Endocervical and/or squamous metaplastic cells (endocervical component) are present. Performed by Comment 11/27/2024 4:11 PM CDT [facility] ([facility]) Comment:Katya Ramsay, Tallow Pumper (ASCP) Comment . 11/27/2024 4:11 PM CDT [facility] ([facility]) Note Comment 11/27/2024 4:11 PM CDT [facility] ([facility]) Comment: The Pap smear is a screening test designed to aid in the detection of premalignant and malignant conditions of the uterine cervix. It is not a diagnostic procedure and should not be used as the sole means of detecting cervical cancer. Both false-positive and false-negative reports do occur. IGLBP CPT Code Automation Comment 11/27/2024 4:11 PM CDT [facility] ([facility]) Comment: This liquid based ThinPrep(R) pap test was screened with the use of an image guided system. Note Comment 11/27/2024 4:11 PM CDT [facility] ([facility]) Comment: The HPV DNA reflex criteria were not met with this specimen result therefore, no HPV testing was performed. Pathology/Cytolo gy PART OF UTERINE CERVIX / Unknown Collection / Unknown 11/24/2024 11:20 AM CDT 11/24/2024 12:00 PM CDT Narrative [facility] ([facility]) - 11/27/2024 4:11 PM CDT Performed at: [facility] - [facility] [id number] [place] [id number] Clutch Operator: Eliceo Miranda MD, Phone: [phone] Performed at: 02 - [address] [id number] Clutch Operator: Ana Weems MD, Phone: [phone] Specimen Comment: No. of containers..01 ThinPrep Vial us Anna Alvarado MD LAB - PATHOLOGY /CYTOLOGY ORDERABLES Final Result Performing Organization Address City/State/[facility] Co de Phone Number [facility] ([facility]) [address] [place] [address] * URINE DRUG SCREEN IMMUNOASSAY (11/24/2024 11:20 AM CDT) Pathologist [facility] Amphetamines Screen Urine Not detected Not detected 11/24/2024 12:47 PM CDT [facility] Barbiturates Screen Urine Not detected Not detected 11/24/2024 12:47 PM CDT [facility] Benzodiazepines Screen Urine Not detected Not detected 11/24/2024 12:47 PM CDT [facility] Cannabinoids Screen Urine Not detected Not detected 11/24/2024 12:47 PM CDT [facility] Cocaine Screen Urine Not detected Not detected 11/24/2024 12:47 PM CDT [facility] Fentanyl Urine Not detected Not detected 11/24/2024 12:47 PM CDT [facility] Methadone Screen Urine Not detected Not detected 11/24/2024 12:47 PM CDT [facility] Opiate Screen Urine Not detected Not detected 11/24/2024 12:47 PM CDT [facility] Phencyclidine Screen Urine Not detected Not detected 11/24/2024 12:47 PM CDT [facility] Urine URINE / Unknown Collection / Unknown 11/24/2024 11:20 AM CDT 11/24/2024 12:00 PM CDT Narrative [facility] - 11/24/2024 12:47 PM CDT This [...] - URINE MARTÍN ALICIA ORDERABLES Final Result [facility] [address] [place], [place] [id number] * HEMOGLOBINOPATHY FRACTIONATION CASCADE (11/24/2024 11:19 AM CDT) Hemoglobin F 0.0 0.0 - 2.0 % 11/26/2024 3:10 PM CDT [facility] ([facility]) Hemoglobin A 97.2 96.4 - 98.8 % 11/26/2024 3:10 PM CDT [facility] ([facility]) Hemoglobin A2 2.8 1.8 - 3.2 % 11/26/2024 3:10 PM CDT [facility] ([facility]) Hemoglobin S 0.0 0.0 % 11/26/2024 3:10 PM CDT [facility] ([facility]) Interpretation Comment 11/26/2024 3:10 PM CDT [facility] ([facility]) Comment: Normal hemoglobin present; no hemoglobin variant or beta thalassemia identified. Note: Alpha thalassemia may not be detected by the Hgb Fractionation Craig panel. If alpha thalassemia is suspected, [facility] offers Alpha-Thalassemia DNA Analysis (#[id number]). Blood BLOOD SPECIMEN / Unknown Venipuncture / Unknown 11/24/2024 11:19 AM CDT 11/24/2024 11:58 AM CDT Narrative [facility] ([facility]) - 11/26/2024 3:10 PM CDT Performed at: 01 - [address] [id number] Clutch Operator: Lev Velasquez PhD, Phone: [phone] Anna Alvarado MD LAB - CHEMISTRY ORDERABLES Final Result [facility] ([facility]) [address] [place] [address] * CYSTIC FIBROSIS (CF) 97 VARIANTS (11/24/2024 11:19 AM CDT) Ethnicity Comment 12/03/2024 3:10 PM CDT [facility] ([facility]) Comment:Not Provided Specimen Type Comment 12/03/2024 3:10 PM CDT [facility] ([facility]) Comment:Whole Blood Indication Comment 12/03/2024 3:10 PM CDT [facility] ([facility]) Comment:Carrier Test / Scree dani Result Comment 12/03/2024 3:10 PM CDT [facility] ([facility]) Comment:NEGATIVE Interpretation Comment 12/03/2024 3:10 PM CDT [facility] ([facility]) Comment: Negative Results Disorders (Gene) Result Interpretation Cystic fibrosis NEGATIVE This result reduces, CFTR [id number] but does not eliminate, the risk to be a carrier. Risk: At reduced risk for an affected . For ethnic-specific risk revisions see Information Table. Recommendations Comment 3:10 PM CDT [facility] ([facility]) Comment: If the above result is positive, genetic counseling is recommended to discuss the potential clinical and/or reproductive implications, as well as recommendations for testing family members and, when applicable, this individual's partner. Genetic counseling services are available. To access [facility] Genetic Counselors please visit [email or web address] or call [phone] ([phone]). Additional Clinical Info Comment 12/03/2024 3:10 PM CDT [facility] ([facility]) Comment: Cystic fibrosis (CF) is an autosomal [...] affected individuals, lung transplantation may be indicated. (PMID:[id number]). Comments Comment 12/03/2024 3:10 PM [facility] ([facility]) Comment: This interpretation is based on the clinical information provided and the current understanding of the molecular genetics of the disorder(s) tested. Information about the disorder(s) tested is available at [email or web address]. Methods and Limitations Comment 12/03/2024 3:10 PM [employer] ([facility]) Comment: Next-generation Sequencing (NGS): Genomic regions of interest in the CFTR gene are selected using the Metail(Charitybuzz hybridization capture method and sequenced via the [employer] NGS platform. Sequencing reads are aligned to the human genome reference GRCh37/hg19 build. Regions of interest include genomic regions encompassing targeted variants. Analytical sensitivity is estimated to be >99% for single nucleotide variants and small insertions/deletions. Variant detection is performed by [employer] and in-house algorithms. Confirmatory testing is done by Fowler sequencing. Variants are specified using the numbering and nomenclature recommended by the Human Genome Variation Society (HGVS, http://www.hgvs.org/). Variant classification and confirmation are consistent with ACMG standards and guidelines (White, PMID:38635690; Elton, PMID:20838021). Analysis is restricted to 97 targeted CF variants, listed below. c.[id number], c.178G>T (p.Glu60*), c.223C>T (p.Arg75*), c.254G>A (p.Rde11Kvu), c.262_263delTT (p.Eog88Lbrqy*22), c.273+1G>A, c.273+3A>C, c.274-1G>A, c.274G>T (p.Glu92*), c.313delA (p.Plo151Teimb*2), c.325_327delinsG (p.Xll310Zbphc*4), c.349C>T (p.Iap404Cnh), c.350G>A (p.Acn243Bys), c.366T>A (p.Hnv449*), c.442delA (p.Oqu790Fwpnt*5), c.489+1G>T, c.531delT (p.Vlb608Chnps*12), c.532G>A (p.Ovf133Yoa), c.579+1G>T, c.579+5G>A, c.580-1G>T, c.617T>G (p.Xkp800Ydg), c.803delA (p.Fvd814Knbxs*17), c.805_806delAT (p.Zgb223Hurmo*4), c.935_937delTCT (p.Tsw389dly), c.948delT (p.Zrm005Wjwox*12), c.988G>T (p.Obz526*), c.1000C>T (p.Mik550Jem), c.1013C>T (p.Jco628Fhe), c.1040G>A (p.Bxq521Pas), c.1040G>C (p.Yoc007Vpg), c.1055G>A (p.Rdp240Jfl), c.[1075C>A;1079C>A' (p.[Wrh424Teb;Nua685Dey'), c.1155_1156dupTA (p.Qox767Ajvqj*3), c.1364C>A (p.Siq182Uod), c.1438G>T (p.Cyc459Eff), c.1477C>T (p.Svf065*), c.1519_1521delATC (p.Jfb870crq), c.1521_1523delCTT (p.Qwm397ndr), c.1545_1546delTA (p.Aca192*), c.1558G>T (p.Kow337Vqh), c.1572C>A (p.Gsb254*), c.1585-1G>A, c.1624G>T (p.Bju645*), c.1646G>A (p.Xoc168Uch), c.1647T>G (p.Gyo174Lor), c.1652G>A (p.Kdr007Iek), c.1654C>T (p.Xxg560*), c.1657C>T (p.Dfb021*), c.1675G>A (p.Yts077Hap), c.1679G>C (p.Mhf379Jfx), c.1680-1G>A, c.1721C>A (p.Ksx968Fht), c.1766+1G>A, c.1766+5G>T, c.1820_1903del84 (p.Bew548_Qgt505mwn), c.1911delG (p.Huf496Vbcgn*26), c.1923_1931delinsA (p.Oxa465Jqyfp*5), c.1973_1985delinsAGAAA (p.Wan005Bgxaq*4), c.1976delA (p.Ouc984Ehtnl*4), c.2011delT (p.Xvk354*), c.205_2delinsG (p.Bcn953Ehiex*38), c.2052delA (p.Ylv841Qftgc*38), c.2052dupA (p.Ggp590Lfwmi*4), c.2125C>T (p.Eho779*), c.2128A>T (p.Lbw086*), c.2175dupA (p.Vci185Gzinw*4), c.2290C>T (p.Xra200*), c.2657+5G>A, c.2668C>T (p.Bfw828*), c.2737_2738insG (p.Ohp462*), c.2988G>A (p.Svf987=), c.2988+1G>A, c.3039delC (p.Uuk6749Wvykl*9), c.3067_3072delATAGTG (p.Hbk5839_Bok5128qmg), c.3196C>T (p.Esg7983Dva), c.3266G>A (p.Xrx8833*), c.3276C>A (p.Iqe6474*), c.3276C>G (p.Hak4413*), c.3302T>A (p.Cod3589Fcy), c.3454G>C (p.Zbw1462Wwk), c.3472C>T (p.Dxi1313*), c.3484C>T (p.Ccn9836*), c.3528delC (p.Von9269Ejgrt*15), c.3536_3539delCCAA (p.Czh1751Miaud*12), c.3587C>G (p.Lkg3181*), c.3611G>A (p.Kul8032*), c.3659delC (p.Xmv7086Rzutb*8), c.3712C>T (p.Diy7246*), c.3718-2477C>T, c.3744delA (p.Lle2882Shdqk*9), c.3752G>A (p.Xqg2007Jsc), c.3764C>A (p.Joe4888*), c.3773dupT (p.Geo2126Nrlfg*7), c.3846G>A (p.Zkl1578*), c.3889dupT (p.Cse6187Gsihj*5), c.3909C>G (p.Jbs6549Hff) Limitations: Technologies used do not detect germline mosaicism and do not rule out the presence of large chromosomal aberrations including rearrangements and gene fusions, or variants in regions or genes not included in this test, or possible inter/intragenic interactions between variants, or repeat expansions. Variant classification and/or interpretation may global director air and climate change time if more information becomes available. 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 References Comment 12/03/2024 3:10 PM CDT [facility] ([facility]) Comment: Lynne ZAIDI, Kofi C, Tim GR et al. CFTR variant testing: a technical standard of the [place] [employer] (ACMG). Rachel Med 22, 1414 (2020). PMID: [id number] London T, Ruben SG, Lloyd BA, et al. Cystic Fibrosis and Congenital Absence of the Vas Deferens. 2000 [Updated 2016Jul 20'. In: Cristopher MP, Kehinde HH, Aubrey RA, et al., editors. Gordon(R) [Internet'. PMID: [id number] Director Review Comment 3:10 PM CDT [facility] ([facility]) Comment: Component Type Performed At [employer] Lonnie Edwards, ghada, Pk, PhD processing [address] [place], [address] Technical Laboratory ghada Calhoun, Pk, PhD analysis [address] [place], [address] Professional [id number], Lonnie Edwards, component Laboratory , PhD [facility], [address] [place], [address] Electronically released by Manpreet Melchor, PhD, [facility] Blood BLOOD SPECIMEN / Unknown Venipuncture / Unknown 11/24/2024 11:19 AM CDT 11/24/2024 11:57 AM CDT Narrative [facility] ([facility]) - 12/03/2024 3:10 PM CDT Performed at: 01 - [facility] [address], [facility] [place] [id number] Clutch Operator: Lonnie Edwards [facility], Phone: [phone] us Anna Alvarado MD LAB - CHEMISTRY ORDERABLES Final Result [facility] ([facility]) [address] [place] [address] * SYPHILIS ANTIBODY CASCADING REFLEX (11/24/2024 11:19 AM CDT) Treponema pallidum Antibody Non Reactive Non Reactive 11/24/2024 1:07 PM CDT [facility] Comment: No Laboratory evidence of syphilis infection. Note: Circulating antibodies may be low or undetectable in early infection. If recent exposure is suspected, re-draw sample in 2-4 weeks and repeat testing. Blood BLOOD SPECIMEN / Unknown Venipuncture / Unknown 11/24/2024 11:19 AM CDT 11/24/2024 11:58 AM CDT us Anna Alvarado MD LAB - SEROLOGY ORDERABLES Final Result [facility] [address] [place], [place] [id number] * SPINAL MUSCULAR ATROPHY CARRIER (11/24/2024 11:19 AM CDT) Ethnicity Comment 11/28/2024 11:11 AM CDT [facility] ([facility]) Comment:Not Provided Specimen Type Comment 11/28/2024 11:11 AM CDT [facility] ([facility]) Comment:Whole Blood Indication Comment 11/28/2024 11:11 AM CDT [facility] ([facility]) Comment:Carrier Test / Scree dani Result Comment 11/28/2024 11:11 AM CDT [facility] ([facility]) Comment:NEGATIVE Interpretation Comment 11/28/2024 11:11 AM [facility] ([facility]) Comment: Negative Results Disorders (Gene) Result Interpretation Spinal muscular NEGATIVE : 2 This result reduces, atrophy SMN1 copies of but does not [id number] SMN1; eliminate, the risk c.*3+80T>G to be a carrier. risk variant Risk: NOT at an not present. increased risk for an affected . Recommendations Comment 11:11 AM [facility] [employer] ([facility]) Comment: If the above result is positive, genetic counseling is recommended to discuss the potential clinical and/or reproductive implications, as well as recommendations for testing family members and, when applicable, this individual's partner. Genetic counseling services are available. To access [facility] please visit [email or web address] or call [phone] ([phone]). Additional Clinical Info Comment 11/28/2024 11:11 AM [facility] [employer] ([facility]) Comment: Spinal muscular atrophy (SMA) is an [...] joint contractures, polyhydramnios, and decreased movement. (Tye, PMID:[id number]). Treatment is supportive. Targeted therapies may be available for some individuals. Approximately 94% of affected individuals have 0 copies of the SMN1 gene; in these individuals, an increase in the number of copies of the SMN2 gene correlates with reduced disease severity (Charlie Fontaine, PMID:88292575). Individuals with one copy of the SMN1 gene are predicted to be carriers of SMA; those with two or more copies have a reduced carrier risk. For individuals with two copies of the SMN1 gene, the presence or absence of the variant c.*3+80T>G correlates with an increased or decreased risk, respectively, of being a silent carrier (2+0). Comments Comment 11/28/2024 11:11 AM [facility] ([facility]) Comment: This interpretation is based on the clinical information provided and the current understanding of the molecular genetics of the disorder(s) tested. Information about the disorder(s) tested is available at [email or web address]. Methods and Limitations Comment 11/28/2024 11:11 AM [facility] ([facility]) Comment: Spinal muscular atrophy: The copy number [...] repeat expansions. Variant classification and/or interpretation may global director air and climate change time if more information becomes available. False positive or false negative results may occur for reasons that include: rare genetic variants, sex chromosome abnormalities, pseudogene interference, blood transfusions, bone marrow transplantation, somatic or tissue-specific mosaicism, mislabeled samples, or erroneous representation of family relationships. This test was developed and its performance characteristics determined by [facility], [place]. It has not been cleared or approved by the Food and Drug Administration. [employer] is a subsidiary of [employer], using the brand [facility]. Information Table Comment 11:11 AM [facility] ([facility]) Comment: Spinal muscular atrophy risk reductions for [...] 1 in i 67 risk 918 5400 Pentecostalism 93.6% 1 in High 1 in 1 in 59 risk 907 5600 Black 90.3% 1 in 1 in 34 1 in 1 in 72 375 4200 92.6% 1 in 1 in 1 in 1 in 68 051 737 1964 White 95.0% 1 in 1 in 29 1 in 1 in 47 921 5600 Mixed For or counse other ling ethnic purpos backgrou es, nd consid er using the ethnic backgr ound with the most conser vative risk estima danay. includes carriers who are silent carriers (2+0) and carriers with a pathogen ic variant not detected in this assay Mitchell. PMID [id number] ; Elliott. PMID [id number] ; Dwayne . PMID [id number] References Comment 11/28/2024 11:11 AM T [facility] ([facility]) Comment: Lynne ZAIDI, Kofi C, Tino A et al. Addendum: Technical standards and guidelines for spinal muscular atrophy testing. Rachel Med 23, 9704 (2020). [Addendum to PMID: [id number]' Prior TW, Bruno ME, Carlos E. Spinal Muscular Atrophy. 1999Aug 11 (Updated 2019Jun 16). In: Cristopher MP, Kehinde HH, Aubrey RA, et al., editors. Gordon(R) [Internet'. PMID: [id number] Director Review Comment 11:11 AM T [facility] ([facility]) Comment: Component Type Performed At [employer] [facility] Jeannine Middleton, PhD, componentalooma, [facility] processing [address] [employer], [place], [address] [facility] Jeannine Middleton, PhD, componentalooma, [facility] analysis [address], [place], [address] Professional [employer] [facility] Jeannine Middleton, PhD, [employer], [address], [address] Electronically released by Michele Mehta, PhD, [facility] Blood BLOOD SPECIMEN / Unknown Venipuncture / Unknown 11/24/2024 11:19 AM CDT 11/24/2024 11:57 AM CDT Narrative [facility] ([facility]) - 11/28/2024 11:11 AM CDT Performed at: [facility] [address], [place], [place] [id number] Clutch Operator: Jeannine Middleton PhD, Phone: [phone] us Anna Alvarado MD LAB - CHEMISTRY ORDERABLES Final Result [facility] ([facility]) [address] [place] [address] * HIV-1 HIV-2 ANTIBODY + HIV P24 AG PANEL (11/24/2024 11:19 AM CDT) [facility] HIV1/2 Ab + P24 Ag Non Reactive Non Reactive 11/24/2024 1:07 PM CDT [facility] Blood BLOOD SPECIMEN / Unknown Venipuncture / Unknown 11/24/2024 11:19 AM CDT 11/24/2024 11:58 AM CDT Narrative [facility] - 11/24/2024 1:07 PM CDT No Laboratory evidence of HIV infection. Anna Alvarado MD LAB - CHEMISTRY ORDERABLES Final Result Performing Organization Address [facility]/ZIP Co de Phone Number [facility] [address] [place], [place] [id number] * RUBELLA ANTIBODY IGG (11/24/2024 11:19 AM CDT) Pathologist [facility] Rubella Antibody 1.17 Immune >0.99 index 11/25/2024 10:10 AM CDT [facility] ([facility]) Comment: Non-immune <0.90 Equivocal 0.90 - 0.99 Immune >0.99 Blood BLOOD SPECIMEN / Unknown Venipuncture / Unknown 11/24/2024 11:19 AM CDT 11/24/2024 11:58 AM CDT Narrative [facility] ([facility]) - 11/25/2024 10:10 AM CDT Performed at: 01 - [facility] [address] [facility], [place], [place] [address] Clutch Operator: Lev Velasquez PhD, Phone: [phone] Anna Alvarado MD LAB - SEROLOGY ORDERABLES Final Result [facility] ([facility]) [address] [place] [address] * (ABNORMAL) HEMOGLOBIN A1C (11/24/2024 11:19 AM CDT) Hemoglobin A1c 6.5(H) <5.7 % 11/24/2024 12:59 PM CDT [facility] Estimated Average Glucose 140 mg/dL 11/24/2024 12:59 PM CDT [facility] Blood BLOOD SPECIMEN / Unknown Venipuncture / Unknown 11/24/2024 11:19 AM CDT 11/24/2024 11:58 AM CDT Narrative [facility] - 11/24/2024 12:59 PM CDT HbA1c [...] MD LAB - CHEMISTRY ORDERABLES Final Result [facility] [address] [place] [address] * TYPE + SCREEN PANEL (11/24/2024 11:19 AM CDT) Pathologist [facility] ABO Rh A POS 11/24/2024 12:43 PM CDT [facility] Comment:No history; collect retype. Antibody Screen NEG 12:43 PM CDT [facility] Blood Bank BLOOD SPECIMEN / Unknown Venipuncture / Unknown 11/24/2024 11:19 AM CDT 11/24/2024 11:58 AM CDT Anna Alvarado MD LAB - BLOOD BAN K ORDERABLES Final Result Performing Organization Address [facility] Co de Phone Number [facility] [address] [place] [address] * CBC W AUTO DIFFERENTIAL (11/24/2024 11:19 AM CDT) [facility] WBC 7.7 4.0 - 10.7 x10E9/L 11/24/2024 12:17 PM CDT [facility] RBC Count 4.25 3.90 - 5.20 x10E12/L 11/24/2024 12:17 PM CDT [facility] Hemoglobin 12.0 11.9 - 15.8 g/dL 11/24/2024 12:17 PM CDT [facility] Hematocrit 37.0 34.8 - 46.1 % 11/24/2024 12:17 PM CDT [facility] MCV 87.1 80.0 - 98.0 fL 11/24/2024 12:17 PM CDT [facility] MCH 28.2 26.7 - 33.6 pg 11/24/2024 12:17 PM CDT [facility] MCHC 32.4 31.7 - 36.3 g/dL 11/24/2024 12:17 PM CDT [facility] RDW-CV 12.7 11.3 - 14.8 % 11/24/2024 12:17 PM CDT [facility] Platelet Count 254 150 - 420 x10E9/L 11/24/2024 12:17 PM CDT [facility] MPV 10.8 7.8 - 11.4 fL 11/24/2024 12:17 PM CDT [facility] Neutrophil % 60.9 41.0 - 74.0 % 11/24/2024 12:17 PM CDT [facility] Lymphocyte % 26.8 17.0 - 47.0 % 11/24/2024 12:17 PM CDT [facility] Monocyte % 9.9 3.0 - 11.0 % 11/24/2024 12:17 PM CDT [facility] Eosinophil % 1.0 0.0 - 7.0 % 11/24/2024 12:17 PM CDT [facility] Basophil % 0.4 0.0 - 1.6 % 11/24/2024 12:17 PM CDT [facility] Immature Granulocytes % 1.0 0.0 - 1.0 % 11/24/2024 12:17 PM CDT [facility] Neutrophil Absolute 4.69 1.60 - 7.50 x10E9/L 11/24/2024 12:17 PM CDT [facility] Lymphocyte Absolute 2.06 1.00 - 4.40 x10E9/L 11/24/2024 12:17 PM CDT [facility] Monocyte Absolute 0.76 0.15 - 1.00 x10E9/L 11/24/2024 12:17 PM CDT [facility] Eosinophil Absolute 0.08 0.00 - 0.60 x10E9/L 11/24/2024 12:17 PM CDT [facility] Basophil Absolute 0.03 0.00 - 0.13 x10E9/L 11/24/2024 12:17 PM T [facility] Blood BLOOD SPECIMEN / Unknown Venipuncture / Unknown 11/24/2024 11:19 AM CDT 11/24/2024 11:58 AM CDT us Anna Alvarado MD LAB - HEMATOLOG Y ORDERABLES Final Result [facility] [address] [place] [address] * HEPATITIS B SURFACE ANTIGEN W RFLX CONFIRMATION (11/24/2024 11:19 AM CDT) [facility] HBsAg Non Reactive Non Reactive 11/24/2024 1:07 PM CDT [facility] Blood BLOOD SPECIMEN / Unknown Venipuncture / Unknown 11/24/2024 11:19 AM CDT 11/24/2024 11:58 AM CDT Anna Alvarado MD LAB - CHEMISTRY ORDERABLES Final Result Performing Organization Address City/[facility]/ZIP Co de Phone Number [facility] [address] [place] [address] * HEPATITIS C ANTIBODY (11/24/2024 11:19 AM CDT) [facility] HCV Antibody Screen Non Reactive Non Reactive 11/24/2024 1:08 PM CDT [facility] Blood BLOOD SPECIMEN / Unknown Venipuncture / Unknown 11/24/2024 11:19 AM CDT 11/24/2024 11:58 AM CDT Narrative [facility] - 11/24/2024 1:08 PM CDT Non Reactive - Antibodies to Hepatitis C virus (HCV) were not detected, result does not exclude early acute HCV infection. Anna Alvarado MD LAB - CHEMISTRY ORDERABLES Final Result [facility] [address] [place] [address] * FERRITIN (11/24/2024 11:19 AM CDT) [facility] Ferritin 128 5 - 204 ng/mL 11/24/2024 12:51 PM CDT [facility] Blood BLOOD SPECIMEN / Unknown Venipuncture / Unknown 11/24/2024 11:19 AM CDT 11/24/2024 11:58 AM CDT Anna Alvarado MD LAB - CHEMISTRY ORDERABLES Final Result [facility] [address] [place] [address] * GLUCOSE - POINT OF CARE (11/24/2024 10:29 AM CDT) [facility] Glucose WB/POC 98 70 - 99 mg/dL 11/24/2024 10:35 AM CDT [facility] Specimen Type Arterial/C apillary 11/24/2024 10:35 AM CDT [facility] Blood BLOOD SPECIMEN / Unknown 11/24/2024 10:29 AM CDT 11/24/2024 10:35 AM CDT us Anna Alvarado MD LAB - POINT OF CARE ORDERABLES Final Result Performing Organization Address City/[facility] Co de Phone Number [facility] [address] [place] [address] * SONOGRAM - COMPLETE (11/24/2024 8:32 AM CDT) [facility] Linked Results Indication ======== Dating Diabetes mellitus, [...] and transvaginal cervical length. Coding ====== Procedures 55733: 1st Trimester 36780: [place] Preg Uterus Transvaginal [facility] [employer] PACS Anatomical Region Laterality Modality Other 11/24/2024 8:32 AM CDT Sourav Jaimes MD [facility] ORDERABLES Edited Result - Final from Last 3 Months Insurance [facility] MEDICARE MEDICARE [id number] * Guarantor: JANELLE MACK Account Type Relation to Patient Date of Phone Billing Address Personal/Family Spouse
--- OUTSIDE RECORDS SUMMARY | 2024-12-03 17:49 | XMS_ITS | Continuity of Care Document ---
Author Organization [facility] Address [address] [facility] [address] [place] [address] Phone Care Team Providers Care Store Team Leader Name Role Phone Allred OD, Miguel Angel Unavailable Unavailable Procedures Procedure Date Eye Exam & Treatment Refraction SV Poly Carb Sph +/- 7.12 To +/- 20 D Au Vision Svcs Frames Purchases Medical Tax Advance Directives Directive Yes / No Effective Date File Name No Information Encounters Encounter Description Practice Location Reason(s) For Visit Diagnoses Date Provider Providers Copied on Encounter [facility], [address] [place] [address] [address], [place], [place], [id number], [place] tel:[phone] [facility] No Information 0-201 0 Allred OD Miguel Angel. [address] , [address], [place], [address], [place]. tel:[phone] [facility], [address] [place] [address] [address], [place], [place], [id number], [place] tel:[phone] [facility] No Information 0201 0 [facility] . [address] [facility], [address], [place], [place], [address], [place]. tel:[phone] Referring Provider: Miguel Angel Allred OD Cami, [address], [place], [address]. tel:[phone] payan Provider: Ck Read, [address] [facility], [place], [address]. tel:[phone] Family History Family Member Type Diagnosis Age At Onset No Information Payers Payer name Insurance type Covered democrat ID Authorclair padgett(s) Medicaid [facility] [id number] Social History Type Description Quantity Date Captured [...]
--- OUTSIDE RECORDS SUMMARY | 2024-12-03 17:49 | XMS_ITS | CONTINUITY OF CARE DOCUMENT ---
Author Name meg, meg Address Unknown Organization [facility] Address [address] [place] [address] Phone [phone] Care Team Providers Care Ceramic Worker Name Role Phone Ward Fried MD Unavailable ERICA JUARES MD Unavailable [phone] ALENA JOHNSON MD Unavailable PROBLEMS Condition Status [...] In-person encounter Office Visit Ward Fried MD [facility] Cardiology examination - In-person encounter Office Visit Ward Fried MD [facility] Postural orthostatic tachycardia syndrome - In-person encounter Office Visit Ward Fried MD [facility] - In-person encounter Office Visit Ward Fried MD [facility] - In-person encounter Office Visit Ward Fried MD [facility] - In-person encounter Office Visit Ward Fried MD [facility] Vaccination - COVID-19 - In-person encounter Office Visit Ward Fried MD [facility] - In-person encounter Office Visit Ward Fried MD [facility] Sinus tachycardia - In-person encounter Office Visit Ward Fried MD [facility] PalpitationsDiabetes mellitus, Type IIGERDDizzinessADHDScoliosi s; has had 3x back surgeryGastric ulcer; h/oChest pain-type to be determined VITAL SIGNS Date Observation Value Provider Body Mass Index (Ratio) 27.76 kg/m2 Jer Fried MD blood pressure, diastolic 76 mm[Hg] Ronna Steel blood pressure, systolic 111 mm[Hg] Abigail Steel oxygen saturation, oximetry 97 % Carol Setel pulse rate 93 /min Carol Steel respiratory rate E&M 12 /min Carol Steel weight E&M 172 [lb_av] Carol Steel height E&M 66 [in_i] Carol Steel blood pressure, cuff size regular Ronna Steel Body Mass Index (Ratio) 28.73 kg/m2 Jer Fried MD oxygen saturation, oximetry 98 % Carol Steel pulse rate 90 /min Carol Stele blood pressure, diastolic 74 mm[Hg] Ronna melendez [...] mcgregor Morris oxygen saturation, oximetry 100 % [facility] pulse rate 95 /min [facility] blood pressure, cuff size regular Reji chelsea Morris weight E&M 179.6 [lb_av] [facility] height E&M 64 [in_i] [facility] Body Mass Index (Ratio) 30.38 kg/m2 [...] Gruenenfe er weight E&M 162 [lb_av] Corry Alvan Body Mass Index (Ratio) 27.80 kg/m2 Jer [...] USE Medication Status Instructions Dates Provider Indications [facility] ments Victoza 2-Librado 0.6 mg/0.1 mL (18 mg/3 mL) pen injector active Inject 0.6 mg subcutaneously once a day Grisel Soni Povocom G6 Sensor device active Apply 1 device [...] 1 TABLET BY MOUTH TWICE A DAY [facility] Specialist lansoprazole 15 mg capsule,delayed release(DR/EC) [...] capsule once a day Grisel Soni Victoza 2-Lbirado 0.6 mg/0.1 mL (18 mg/3 mL) pen injector completed once a day - Ward Fried MD Multi-DHA (algal oil) 27mg iron- 800 mcg-250 mg capsule active once a day Grisel Soni Simpesse 0.15 mg-30 mcg (84)/10 mcg (7) tablets,dose pack,3 month completed once a day - Chrissy Matthewmiglia [facility] SOCIAL HISTORY Date Observation Value Provider [...] history of marijuana use no Chrissy Ventimiglia [facility] drug use no Chrissy Ventimig mayra [facility] alcohol use no Chrissy Ventimig mayra [facility] smoking status Never smoker Chrissy Ventim iglia [facility] drug use no Ward Fried MD [...] Payer name Policy type / Coverage type [employer] party ID [employer] [id number] [place] MEDIC[place] Medicare [id number] ADVANCE DIRECTIVES Name Date DISCUSSED - NO DECISION MADE TREATMENT PLAN Date Name Performer [id number],B, Ward Fried MD [id number],S,Per Dr Jonny Fried MD [id number],B, Ward Fried MD [id number],B, Ward Fried MD [id number],C, P shikha feels much better on Corlanor. [...] 1 capsule once a day Chrissy Emery [facility] Cardiology:poorly co ntrolled referred back to endocrine l pamellaestdeisy modification encouraged W ill resume Victoza as tolerated well in past and needs control of glucose to reduce cardiac risk factors and glycemic control. s he reports blood glucose as high as 558. Chrissy Ventimiglia [facility] Cardiology:continue corlanor Whitley jonas Ventimiglia [facility] Cardiology:Has repor ts of chest pain, SOB and palpitations. Also, associated with diaphoresis. S he has very uncontrolled blood glucose W ill plan routine stress test. Chrissy Ventimiglia [facility] Cardiology:Continues to have episodes of palpitations better with corlanor Chrissy Ventimiglia [facility] Cardiology:on Mounjaro Ward escobedo MD Cardiology:Needs [...]
== END 2024-12-03 17:24 | disposition home or self-care (01) ==
LOC: ANHED 17:13
PROVIDERS: Emergency Provider Physician Assistant; PCP Internal Medicine
DX: O99.891 Other specified diseases and conditions complicating pregnancy (principal); H60.503 Unspecified acute noninfective otitis externa, bilateral; O24.111 Pre-existing type 2 diabetes mellitus, in pregnancy, first trimester; O99.211 Obesity complicating pregnancy, first trimester; E66.9 Obesity, unspecified; O99.511 Diseases of the respiratory system complicating pregnancy, first trimester; J45.909 Unspecified asthma, uncomplicated; Z3A.10 10 weeks gestation of pregnancy; Z79.84 Long term (current) use of oral hypoglycemic drugs
CPT/HCPCS: 99283

== ENCOUNTER 2025-01-19 21:40 | Emergency (ER) | payer MEDICARE, OTHER, SELFPAY ==
--- OUTSIDE RECORDS SUMMARY | 2025-01-19 21:43 | XMS_ITS ---
Author Organization [facility] Address [address] [place] [address] Care Team Providers Care Automation Specialist Name Role Phone Maryanne COLLADO, Hernan Primary Care Provider Un available Tian Frazier Unavailable [phone] REASON FOR VISIT R/S due to being sick, could not do tele Social History Sex Assigned At : Social History Observation Description Sex Assigned At Female Encounters Encounter Location Date Provider Diagnosis [facility] better. [facility] [address] [place] [address] 12/02/2024 Tian Frazier Plan Of Treatment Next Appt Details Provider Name:Tian tapia, 02/04/2025 01:00:00 PM, [address], [address], [place], [address], Progress Notes * BIANKA WESTLEYANGELINAOB:2000 (24 yo F)Acc No.[id number]:12/02/2024 Patient: JANELLE KELLY Provider: GERALD CHANDRA :2000 A ge:24 Y S ex:Female Date:12/02/2024 Address:[address] [place], [place] [address] Pcp:Hernan Madden MD Subjective: * Chief Complaints: * 1 . R/S due to being sick, could not do tele. * Medical History: Objective: * Vitals: Assessment: Plan: * Treatment: * Billing Information: * Visit Code: * Procedure Codes: * Electronic signature of GERALD Lopez on 01/19/2025 at 11:13 AM CDT Sign off status: Pending * Provider: GERALD CHANDRA Date: 0 12/02/2024 Generated for Marti bermeo/Mao/Nahid on: 01/19/2025 11:13 AM CDT
--- OUTSIDE RECORDS SUMMARY | 2025-01-19 21:43 | XMS_ITS ---
Author Organization [facility] Address [address] [place] [address] Care Team Providers Care Paper Conservator Name Role Phone Cici Fuller Primary Care Provider REASON FOR VISIT diabetes/ medicare & [employer] Encounters Encounter Location Date Provider Diagnosis [facility] - Cici Fuller [address] [place] [address] 10/29/2023 Cici Fuller Plan Of Treatment No Information Progress Notes * Kermit MACKOB:2000 (24 yo F)Acc No.[id number]:10/29/2023 Progress Notes Patient: Zhen HALLMAN Violet Provider: Zhen Fuller MD :2000 A ge:23 Y S ex:Female Date:10/29/2023 [address] [facility] Subjective: * Chief Complaints: * 1 . diabetes/ medicare & [employer]. * Medical History: Objective: * Vitals: Assessment: Plan: * Treatment: * Billing Information: * Visit Code: * Procedure Codes: * Electronic signature of Bobby Fuller MD on 01/19/2025 at 09:42 PM CDT Sign off status: Pending * Provider: Zhen Fuller MD Date: 10/29/2023 Generated for Marti bermeo/Mao/eTransmitting on: 01/19/2025 09:42 PM CDT
--- OUTSIDE RECORDS SUMMARY | 2025-01-19 21:43 | XMS_ITS | Patient Health Record ---
Author Organization [facility] Address [address] [place] [address] Care Team Providers Care Change Management Name Role Phone Maryanne COLLADO, Hernan Primary Care Provider Un available Tian Frazier Unavailable [phone] Allergies Allergen (clinical drug ingredient) Drug/Non Drug Allergy documented on EMR Reaction Allergy Type Onset Date Status DAYQUIL SINUS PRESSURE/PAIN (uncoded) Unknown Allergy 08/14/2023 Active ROBITUSSIN (uncoded) Unknown Allergy Active azithromycin Azithromycin Unknown Drug Allergy 08/14/2023 Active Chlor-Trimeton Unknown Drug Allergy 08/14/2023 A ctive Methylprednisol & Bu piv & Lido rash Drug Allergy Active Reason For Referral No Information Medications Medication SIG (Take, Route, Frequency, Duration) Notes Start Date End Date Status Venlafaxine HCl ER 75 MG 1 capsule Oral Once a day; Duration: 90 days Active lamoTRIgine 100 MG 1 tablet Orally Once a day; Duration: 30 days Active Immunizations Vaccine Route Administration Date [...] Risk Notes Problem Mild recurrent major depression (88744671) Major depressive disorder, recurrent, mild (F33.0) 05/22/20 24 Active confirmed Problem Generalized anxiety disorder (72264589) Generalized anxiety disorder (F41.1) 11/07/19 Active confirmed Problem Posttraumatic stress disorder (08294397) Post-traumatic stress disorder, chronic (F43.12) 11/07/19 Active confirmed Problem Insomnia disorder related to another mental disorder (57474448) Insomnia due to other mental disorder (F51.05) 11/07/19 Active confirmed Problem Intermittent explosive disorder (25103553) Intermittent explosive disorder (F63.81) 11/07/19 Active confirmed Problem Attention deficit hyperactivity disorder, combined type (08772955) Attention-deficit hyperactivity disorder, combined type (F90.2) 11/07/19 Active confirmed Vital Signs Heart Rate 106 /min 12/10/2024 Height-cm 165.10 cm 01/07/2025 Blood pressure diastolic 74 mm Hg 01/07/2025 Weight-kg 75.3 kg 01/07/2025 Height 65.00 in 01/07/2025 Blood pressure systolic 114 mm Hg 01/07/2025 Weight 166 lbs 01/07/2025 BMI 27.62 kg/m2 01/07/2025 Encounters Encounter Location Date Provider Diagnosis [facility] [address] [facility] [facility] [address] [facility] [address] [place] [address] 04/07/2024 Tian Frazier Intermittent explosi ve disorder F63.81 ; Post-traumatic stress disorder, chronic F43.12 ; Attention-deficit hyperactivity disorder, combined type F90.2 ; Generalized anxiety disorder F41.1 ; Insomnia due to other mental disorder F51.05 ; Major depressive disorder, recurrent, mild F33.0 and Marijuana use F12.90 [facility] [address] [facility] [address] [place] [address] 07/07/2024 Tian Frazier [facility] [employer] [place] [address] [facility] [address] [place] [address] 09/02/2024 Tian Frazier Generalized anxiety disorder F41.1 ; Major depressive disorder, recurrent, mild F33.0 ; Post-traumatic stress disorder, chronic F43.12 ; Attention-deficit hyperactivity disorder, combined type F90.2 ; Intermittent explosive disorder F63.81 ; Insomnia due to other mental disorder F51.05 ; Encounter for screening for depression Z13.31 ; Encounter for screening for cardiovascular disorders Z13.6 and Marijuana use F12.90 [employer] [address] [place] [address] 12/10/2024 Tian Frazier Encounter for screen ing for cardiovascular disorders Z13.6 ; Generalized anxiety disorder F41.1 ; Major depressive disorder, recurrent, mild F33.0 ; Post-traumatic stress disorder, chronic F43.12 ; Attention-deficit hyperactivity disorder, combined type F90.2 ; Intermittent explosive disorder F63.81 ; Insomnia due to other mental disorder F51.05 ; Encounter for screening for depression Z13.31 and state, incidental Z33.1 [employer] [address] [place] [address] 01/07/2025 Tian Frazier Generalized anxiety disorder F41.1 ; Major depressive disorder, recurrent, mild F33.0 ; Post-traumatic stress disorder, chronic F43.12 ; Attention-deficit hyperactivity disorder, combined type F90.2 ; Intermittent explosive disorder F63.81 ; Insomnia due to other mental disorder F51.05 and state, incidental Z33.1 Assessments Encounter Date Diagnosis (ICD Code) Assessment [...] 09/02/2024 Generalized anxiety disorder (ICD-10 - F41.1) 12/10/2024 Encounter for screening for cardiovascular disorders (ICD-10 - Z13.6) 01/07/2025 Generalized anxiety disorder (ICD-10 - F41.1) 01/07/2025 Major depressive disorder, recurrent, mild (ICD-10 - F33.0) stable 12/10/2024 Generalized anxiety disorder (ICD-10 - F41.1) 09/02/2024 [...] months or sooner if any concerns arise 12/10/2024 Major depressive disorder, recurrent, mild (ICD-10 - F33.0) stable 01/07/2025 Post-traumatic stress disorder, chronic (ICD-10 - F43.12) 01/07/2025 Attention-deficit hyperactivity disorder, combined type (ICD-10 - F90.2) 12/10/2024 Post-traumatic stress disorder, chronic (ICD-10 - F43.12) 09/02/2024 Attention-deficit hyperactivity disorder, combined type (ICD-10 - F90.2) 04/07/2024 Generalized anxiety disorder (ICD-10 - F41.1) [...] or sooner if any concerns arise 09/02/2024 Intermittent explosive disorder (ICD-10 - F63.81) 01/07/2025 Intermittent explosive disorder (ICD-10 - F63.81) 12/10/2024 Attention-deficit hyperactivity disorder, combined type (ICD-10 - F90.2) 01/07/2025 Insomnia due to other mental disorder (ICD-10 - F51.05) 12/10/2024 Intermittent explosive disorder (ICD-10 - F63.81) 09/02/2024 [...] or sooner if any concerns arise 04/07/2024 Marijuana use (ICD-10 - F12.90) states [...] months or sooner if any concerns arise 12/10/2024 Insomnia due to other mental disorder (ICD-10 - F51.05) 09/02/2024 Encounter for screening for depression (ICD-10 - Z13.31) 01/07/2025 state, incidental (ICD-10 - Z33.1) 16 weeks 12/10/2024 Encounter for screening for depression (ICD-10 - [...] its drug effect by the CY Substrate 12/10/2024 state, incidental (ICD-10 - Z33.1) 12 weeks 09/02/2024 Other Violet aMck, female patient with history of depression and [...] 100 mg PO twice daily - Encourage stress-reductio n techniques and regular physical activity as tolerated Chronic Pain Assessment: Patient reports variable ability to walk due to back and hip pain. Uses marijuana occasionally for pain management. Plan: - Advised on risks and benefits of marijuana use for pain management - Encourage non-pharmacolog ical pain management strategies Substance Use Assessment: Patient [...] efforts have been made to correct them. 12/10/2024 Other states helps with pain and mood THC/CBD may affect the metabolism of Lamotrigine by increasing its drug effect by the [id number] Substrateby increasing or decreasing its drug effect by the CY Substrateby increasing its drug effect by the CY Substrate Violet Mack is a patient at 3 months gestation with a history of mood swings and diabetes, presenting for medication management. Assessment: Patient is approximately 3 months with an estimated due date of December 27. She is receiving regular care at [facility] every Sunday with a team of healthcare providers. Recent genetic testing has returned normal results. Patient reports nausea and vomiting, particularly with multivitamin intake and excessive food consumption. Diabetes management has been adjusted for . Plan: - Continue weekly appointments at [facility] - Monitor for nausea and vomiting - Diabetes management: - Lantus 18 units in the morning and 18 units at night - NovoLog 6 units at lunchtime - Follow up in 1 month Mood Disorder Assessment: Patient reports irritability and occasional outbursts of screaming when aggravated, which is consistent with her pre- behavior. She has been off lamotrigine due to concerns about Jean-Sanjeev syndrome risk during . Sleep disturbances are present, with daytime fatigue and difficulty maintaining sleep. Patient is currently taking venlafaxine. Plan: - Restart lamotrigine: - 25 mg daily for 2 weeks - Increase to 50 mg daily after 2 weeks - Take at the same time each day - Continue venlafaxine - Follow up in 1 month to assess lamotrigine tolerability and efficacy Substance Use Assessment: Patient reports cessation of cannabis use due to . Plan: - Encourage continued abstinence from cannabis during the note is transcribed using speech recognition software. It is a reflection of a visit with the patient. It might have some inaccuracy, including medication names and transcribing errors, though efforts have been made to correct them. 01/07/2025 Other [email or web address] Violet Mack, a 62-year-old female, presents with ongoing mood instability and irritability, currently taking lamotrigine 25 mg twice daily. Mood Instability Assessment: Patient reports ongoing mood instability despite current lamotrigine regimen of 25 mg twice daily. She experiences irritability, becoming upset over minor issues and reacting strongly to noises. Patient describes feeling like screaming and crying when agitated. No current suicidal ideation reported. The current dose appears to be providing some benefit, but patient believes an increase is necessary for better symptom control. Plan: - Increase lamotrigine to 100 mg daily - Follow-up appointment in one month to assess response to medication adjustment - Provided information about .net for additional resources and support Assessment: Patient reports being with a female fetus. Gestational age not specified. Plan: - Continue monitoring in conjunction with obstetric care - Advised about .net resources, including online support groups and peer mentor program Nausea and Vomiting Assessment: Patient reports nausea and vomiting of mucus after eating. Symptoms occur at various times throughout the day and worsen with heat exposure. This may be related to , but further evaluation is warranted. Plan: - Monitor symptoms - Reassess at follow-up appointment the note is transcribed using speech recognition software. It is a reflection of a visit with the patient. It might have some inaccuracy, including medication names and transcribing errors, though efforts have been made to correct them. Plan Of Treatment Next Appt Details Provider Name:Tian tapia, 02/04/2025 01:00:00 PM, [address], [address], [place], [address], Insurance Providers Payer Name Payer Address Payer Phone Subscriber Number Group Number Insured Name Patient Relationship to Insured Coverage Start Date Coverage End Date [place] [address] [place] [phone] [id number] VIOLET ZHENG Self - patient is the insured [employer] [place] Medicare Supplement [address] [place] [address] [id number] PLAN G VIOLET ZHENG Self - patient [...] Surgical History Surgery Date(Month/Year) Correction of scoliosis ([id number]) 12/16
--- OUTSIDE RECORDS SUMMARY | 2025-01-19 21:43 | XMS_ITS | Patient Health Record ---
Author Organization [facility] Address [address] [facility] [address] [place] [address] Care Team Providers Care Mule Spinner Name Role Phone Cici Fuller Unavailable [phone] Results Component Value Reference Range Flag Notes COMPREHENSIVE METABOLIC PANE L Reviewed date:05/17/2024 01:39:32 PM Interpretation: Performing Lab:[place], [facility], [address], [place], [address] LoFrancia Banks MD Notes/Report: reference range. Not Reported: BUN and Creatinine are within follow-up test. diabetes and this should be confirmed with a value >125 mg/dL indicates that they may have For someone without known diabetes, a glucose Fasting reference interval GLUCOSE 144 65-99 mg/dL H UREA NITROGEN (BUN) 12 7-25 mg/dL N CREATININE 0.55 0.50-0.96 mg/dL N EGFR 133 > OR = 60 mL/min/1.73m2 N BUN/CREATININE RATIO SEE NOTE: 6-22 (calc) SODIUM 138 135-146 mmol/L N POTASSIUM 4.1 3.5-5.3 mmol/L N CHLORIDE 103 98-110 mmol/L N CARBON DIOXIDE 25 20-32 mmol/L N CALCIUM 9.3 8.6-10.2 mg/dL N PROTEIN, TOTAL 6.6 6.1-8.1 g/dL N ALBUMIN 4.7 3.6-5.1 g/dL N GLOBULIN 1.9 1.9-3.7 g/dL (calc) N ALBUMIN/GLOBULIN RATIO 2.5 1.0-2.5 (calc) N BILIRUBIN, TOTAL 0.5 0.2-1.2 mg/dL N ALKALINE PHOSPHATASE 92 31-125 U/L N AST 24 10-30 U/L N ALT 36 6-29 U/L H VITAMIN D, 25-HYDROXY, LC/MS /MS Reviewed date:05/17/2024 01:59:29 PM Interpretation: Performing Lab:[facility], [address] [place], [address] Ebenezer Banks MD Notes/Report: educational purposes only.) (This link is being provided for informational/ http://education.[employer]/faq/BSS987 For additional information, please refer to Note 1 See Note 1 code 54322 (patients >2yrs). 25-OH VIT D, (D2,D3), LC/MS/MS is recommended: order of D2 and D3 fractions is required, the QuestAssureD(TM) D2-supplementation and patients for whom quantitation For 25-OH Vitamin D testing on patients on Optimal: > or = 30 ng/mL Insufficiency: 20 - 29 ng/mL Deficiency: <20 ng/mL Vitamin D Status 25-OH Vitamin D: VITAMIN D,25-OH,TOTAL,IA 30 30-100 ng/mL N ACTH, PLASMA Reviewed date:05/21/2024 09:55:19 PM Interpretation: Performing Lab:[facility], [address], [place], [address] Chadwick Underwood M.D.,PhD Notes/Report: Reference range applies only to specimens collected between 7am-10am. ACTH, PLASMA 11 6-50 pg/mL T3, FREE Reviewed date:05/17/2024 01:59:36 PM Interpretation: Performing Lab:[facility], [address] [place], [address] Ebenezer Banks MD Notes/Report: T3, FREE 3.3 2.3-4.2 pg/mL N CORTISOL, TOTAL Reviewed date:05/17/2024 02:05:26 PM Interpretation: Performing Lab:[facility], [address] [place], [address] Ebenezer Banks MD Notes/Report: Reference Range: For 8 a.m.(7-9 a.m.) Specimen: 4.0-22.0 Reference Range: For 4 p.m.(3-5 p.m.) Specimen: 3.0-17.0 * Please interpret above results accordingly * CORTISOL, TOTAL 7.8 N DHEA SULFATE Reviewed date:05/17/2024 02:05:44 PM Interpretation: Performing Lab:[facility], [address] [place], [address] Ebenezer Banks MD Notes/Report: DHEA SULFATE 48 14-349 mcg/dL N ESTRADIOL Reviewed date:05/17/2024 01:59:50 PM Interpretation: Performing Lab:[facility], [address] [place], [address] Ebenezer Banks MD Notes/Report: Reference Range Follicular Phase: 19-144 Mid-Cycle: 64-357 Luteal Phase: 56-214 Postmenopausal: < or = 31 Reference range established on post-pubertal patient population. No pre-pubertal reference range established using this assay. For any patients for whom low Estradiol levels are anticipated (e.g. males, pre-pubertal children and hypogonadal/post-menopausal females), the [facility] Estradiol, Ultrasensitive, LCMSMS assay is recommended (order code 81615). Please note: patients being treated with the drug fulvestrant (Faslodex(R)) have demonstrated significant interference in immunoassay methods for estradiol measurement. The cross reactivity could lead to falsely elevated estradiol test results leading to an inappropriate clinical assessment of estrogen status. [facility] order code [id number], Ultrasensitive LC/MS/MS demonstrates negligible cross reactivity with fulvestrant. ESTRADIOL 205 N FSH Reviewed date:05/17/2024 02:05:53 PM Interpretation: Performing Lab:[facility], [address] [place], [address] Ebenezer Banks MD Notes/Report: Reference Range Follicular Phase 2.5-10.2 Mid-cycle Peak 3.1-17.7 Luteal Phase 1.5- 9.1 Postmenopausal 23.0-116.3 FSH 5.3 N HEMOGLOBIN A1c Reviewed date:05/17/2024 01:59:21 PM Interpretation: Performing Lab:[facility], [address], [place], [address] Ebenezer Banks Notes/Report: For someone without known diabetes, a hemoglobin A1c value of 6.5% or greater indicates that they may have diabetes and this should be confirmed with a follow-up test. For someone with known diabetes, a value <7% indicates that their diabetes is well controlled and a value greater than or equal to 7% indicates suboptimal control. A1c targets should be individualized based on duration of diabetes, age, comorbid conditions, and other considerations. Currently, no consensus exists regarding use of hemoglobin A1c for diagnosis of diabetes for children. HEMOGLOBIN A1c 8.5 <5.7 % of total Hgb H INSULIN Reviewed date:05/17/2024 02:06:08 PM Interpretation: Performing Lab:[facility], [address] [place], [address] Ebenezer Banks MD Notes/Report: Reference Range < or = 18.4 Risk: Optimal < or = 18.4 Moderate NA High >18.4 Adult cardiovascular event risk category cut points (optimal, moderate, high) are based on Insulin Reference Interval studies performed at [facility] in 2021. INSULIN 9.3 N LH Reviewed date:05/17/2024 02:06:01 PM Interpretation: Performing Lab:[facility], [address] [place], [address] Ebenezer Banks MD Notes/Report: Reference Range Follicular Phase 1.9-12.5 Mid-Cycle Peak 8.7-76.3 Luteal Phase 0.5-16.9 Postmenopausal 10.0-54.7 LH 11.6 N MAGNESIUM Reviewed date:05/17/2024 01:39:49 PM Interpretation: Performing Lab:[facility], [address] [place], [address] Ebenezer Banks MD Notes/Report: MAGNESIUM 2.1 1.5-2.5 mg/dL N CBC (INCLUDES DIFF/PLT) Reviewed date:05/17/2024 01:31:12 PM Interpretation: Performing Lab:[facility], [address] [place], [address] Ebenezer Banks MD Notes/Report: For adults, a slight decrease in the calculated MCHC value (in the range of 30 to 32 g/dL) is most likely not clinically significant; however, it should be interpreted with caution in correlation with other red cell parameters and the patient's clinical condition. WHITE BLOOD CELL COUNT 11.8 3.8-10.8 Thousand/uL H RED BLOOD CELL COUNT 4.77 3.80-5.10 Million/uL N HEMOGLOBIN 13.7 11.7-15.5 g/dL N HEMATOCRIT 42.5 35.0-45.0 % N MCV 89.1 80.0-100.0 fL N MCH 28.7 27.0-33.0 pg N MCHC 32.2 32.0-36.0 g/dL N RDW 12.1 11.0-15.0 % N PLATELET COUNT 311 140-400 Thousand/uL N MPV 10.6 7.5-12.5 fL N ABSOLUTE NEUTROPHILS 7257 3739-1966 cells/uL N ABSOLUTE LYMPHOCYTES 3434 850-3900 cells/uL N ABSOLUTE MONOCYTES 968 200-950 cells/uL H ABSOLUTE EOSINOPHILS 71 15-500 cells/uL N ABSOLUTE BASOPHILS 71 0-200 cells/uL N NEUTROPHILS 61.5 N LYMPHOCYTES 29.1 N MONOCYTES 8.2 N EOSINOPHILS 0.6 N BASOPHILS 0.6 N MICROALBUMIN, RANDOM URINE ( W/CREATININE) Reviewed date:05/17/2024 01:39:16 PM Interpretation: Performing Lab:MA, [facility], [address], [place], [address] Ebenezer Banks MD Notes/Report: Reference Range: Reference Range Not established The ADA defines abnormalities in albumin excretion as follows: Albuminuria Category Result (mg/g creatinine) Normal to Mildly increased <30 Moderately increased 30-299 Severely increased > OR = 300 The ADA recommends that at least two of three specimens collected within a 3-6 month period be abnormal before considering a patient to be within a diagnostic category. CREATININE, RANDOM URINE 152 20-275 mg/dL N ALBUMIN, URINE 0.9 See Note: mg/dL N ALBUMIN/CREATININE RATIO, RANDOM URINE 6 <30 mg/g creat N VITAMIN B12/FOLATE, SERUM PA CHA Reviewed date:05/17/2024 01:59:43 PM Interpretation: Performing Lab:[facility], [place], [address] Ebenezer Banks MD Notes/Report: Reference Range Low: <3.4 Borderline: 3.4-5.4 Normal: >5.4 VITAMIN B12 559 549-0086 pg/mL N FOLATE, SERUM >24.0 N PROGESTERONE Reviewed date:05/17/2024 02:00:13 PM Interpretation: Performing Lab:[facility], [place], [address] Ebenezer Banks MD Notes/Report: Reference Ranges Female Follicular Phase < 1.0 Luteal Phase 2.6-21.5 Post menopausal < 0.5 1st Trimester 4.1-34.0 2nd Trimester 24.0-76.0 3rd Trimester 52.0-302.0 PROGESTERONE 0.9 N IRON AND TOTAL IRON BINDING CAPACITY Reviewed date:05/17/2024 01:39:41 PM Interpretation: Performing Lab:[facility], [place], [address] Ebenezer Banks MD Notes/Report: IRON, TOTAL 110 40-190 mcg/dL N IRON BINDING CAPACITY 401 250-450 mcg/dL (calc) N % SATURATION 27 16-45 % (calc) N LIPID PANEL Reviewed date:05/17/2024 01:39:59 PM Interpretation: Performing Lab:[facility], [place], [address] Ebenezer Banks MD Notes/Report: Reference range: <100 Desirable range <100 mg/dL for primary prevention; <70 mg/dL for patients with CHD or diabetic patients with > or = 2 CHD risk factors. LDL-C is now calculated using the Albina calculation, which is a validated novel method providing better accuracy than the Friedewald equation in the estimation of LDL-C. Emeka CERDA et al. YANNICK. 2013;310(19): 8301-2956 (http://education.[employer]./faq/ZVC125) For patients with diabetes plus 1 major ASCVD risk factor, treating to a non-HDL-C goal of <100 mg/dL (LDL-C of <70 mg/dL) is considered a therapeutic option. CHOLESTEROL, TOTAL 118 <200 mg/dL N HDL CHOLESTEROL 42 > OR = 50 mg/dL L TRIGLYCERIDES 115 <150 mg/dL N LDL-CHOLESTEROL 56 N CHOL/HDLC RATIO 2.8 <5.0 (calc) N NON HDL CHOLESTEROL 76 <130 mg/dL (calc) N T4, FREE Reviewed date:05/17/2024 01:59:57 PM Interpretation: Performing Lab:KS, [facility], [address] [place], [address] Ebenezer Banks MD Notes/Report: T4, FREE 1.2 0.8-1.8 ng/dL N TSH Reviewed date:05/17/2024 02:00:05 PM Interpretation: Performing Lab:JOHN, [facility], [address] [facility], [place], [address] Ebenezer Banks MD Notes/Report: Reference Range > or = 20 Years 0.40-4.50 Ranges First trimester 0.26-2.66 Second trimester 0.55-2.73 Third trimester 0.43-2.91 TSH 1.39 N THYROID PEROXIDASE ANTIBODIE S Reviewed date:05/17/2024 02:05:36 PM Interpretation: Performing Lab:[facility], [facility], [address] [place] [address], [address] Paresh Lee Notes/Report: THYROID PEROXIDASE ANTIBODIES <1 <9 IU/mL TESTOSTERONE, FREE (DIALYSIS ) AND TOTAL,MS Reviewed date:05/17/2024 01:57:16 PM Interpretation: Performing Lab:[facility], [facility], [address] [place] [address], [address], [place], [address] Chanel Mcfadden MD,PhD Notes/Report: For additional information, please refer to https://education.[employer]/faq/YEL432 (This link is being provided for informational/educational purposes only.) (Note) This test was developed and its analytical performance characteristics have been determined by [employer]. It has not been cleared or approved by the FDA. This assay has been validated pursuant to the CLIA regulations and is used for clinical purposes. (Note) This test was developed and its analytical performance characteristics have been determined by [employer]. It has not been cleared or approved by the FDA. This assay has been validated pursuant to the CLIA regulations and is used for clinical purposes. [facility] [address] [address],[address] [place] [address] Chanel Mcfadden MD, PhD TESTOSTERONE, TOTAL, MS 19 2-45 ng/dL TESTOSTERONE, FREE 4.5 0.1-6.4 pg/mL Reason For Referral No Information Medications Medication SIG (Take, Route, Frequency, Duration) Notes Start Date End Date Status Baqsimi Two Pack 3 MG/DOSE Powder as directed Nasally as needed; Duration: 1 days 11/14/2024 Active Ondansetron 4 MG Tablet Disintegrating 1 tablet as needed on the tongue and allow to dissolve Orally twice daily as needed nausea; Duration: 90 days 08/28/2024 Active Corlanor 5 MG Tablet 1 tablet with meals Orally Twice a day Active metFORMIN HCl ER 500 MG Tablet Extended Release 24 Hour 1 tablet with evening meal Orally Once a day twice daily Active Pen [place]land 5/16 31G X 8 MM Miscellaneous inject insulin up to 5 times daily; Duration: 90 days 11/14/2024 Active NovoLOG FlexPen 100 UNIT/ML Solution Pen-injector inject up to 10 units Subcutaneous three times daily before meals; Duration: 90 days 11/14/2024 Active Basaglar KwikPen 100 UNIT/ML Solution Pen-injector inject up to 20 units Subcutaneous twice daily; Duration: 90 days 11/14/2024 Active Social History Social History Additional Details Category Social Info Options Details Migrated Social History Migrated Social History (Alcohol:):no occasionally (Recreational drug use:):no (Smoking:):no Problems Problem Type SNOMED Code ICD Code Onset Dates Problem Status W/U Status Risk Notes Problem 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, 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 Problem Hyperglycemia due to type 2 diabetes mellitus (900319090822943) Type 2 diabetes mellitus with hyperglycemia (E11.65) Active confirmed Problem Vitamin D deficiency (25005935) Vitamin D deficiency, unspecified (E55.9) Active confirmed Problem Obesity (819062474) Obesity, unspecified (E66.9) Active confirmed Problem Irregular menstruation (73575587) Irregular menstruation, unspecified (N92.6) Active confirmed Vital Signs Heart Rate 88 /min 11/14/2024 Oximetry 97 % 11/14/2024 Blood pressure diastolic 65 mm Hg 11/14/2024 Weight-kg 76.48 kg 11/14/2024 Height 66 in 11/14/2024 Blood pressure systolic 94 mm Hg 11/14/2024 Weight 168.6 lbs 11/14/2024 BMI 27.21 kg/m2 11/14/2024 Encounters Encounter Location Date Provider Diagnosis AMMO Dr. Fuller [address] [place] [phone] 05/08/2024 Cici Fuller Type 2 diabetes elle itus with hyperglycemia E11.65 ; Other fatigue R53.83 ; Obesity, unspecified E66.9 ; Encounter for screening for lipoid disorders Z13.220 ; Irregular menstruation, unspecified N92.6 ; Vitamin D deficiency, unspecified E55.9 and Nontoxic goiter, unspecified E04.[address] Fuller [address] [place] [phone] 06/09/2024 Cici Shipman 2 diabetes elle itus with hyperglycemia E11.65 ; Obesity, unspecified E66.9 ; Irregular menstruation, unspecified N92.6 ; Vitamin D deficiency, unspecified E55.9 and Dietary counseling and surveillance Z71.[address] Fuller [address] [place] [phone] 11/14/2024 Cici Fuller Pre-existing type 2 diabetes mellitus during in first trimester O24.111 ; Dietary counseling and surveillance Z71.3 and High-risk in first trimester O09.[address] [address] 08/15/2024 Cici Fuller Type 2 diabetes elle itus with hyperglycemia E11.[address] [address] 08/26/[address] Fuller [address] [place] [phone] 12/01/2024 Cici Fuller Assessments Encounter Date Diagnosis (ICD Code) Assessment Notes Treatment Notes Treatment Clinical Notes Section Notes 05/08/2024 Type 2 diabetes mellitus with hyperglycemia (ICD-10 - E11.65) 05/08/2024 Other fatigue (ICD-10 - R53.83) 06/09/2024 Type 2 diabetes mellitus with hyperglycemia (ICD-10 - E11.65) 08/15/2024 Type 2 diabetes mellitus with hyperglycemia (ICD-10 - E11.65) 11/14/2024 Dietary counseling and surveillance (ICD-10 - Z71.3) Spent 15 minutes preventative counseling patient on dietary recommendations and changes in setting of hyperglycemia- need to restrict refined sugars and processed foods and incorporate up to 150 minutes of moderate level activity weekly. 11/14/2024 Pre-existing type 2 diabetes mellitus during in first trimester (ICD-10 - O24.111) 11/14/2024 High-risk in first trimester (ICD-10 - O09.91) 06/09/2024 Obesity, unspecified (ICD-10 - E66.9) 05/08/2024 Obesity, unspecified (ICD-10 - E66.9) 05/08/2024 Encounter for screening for lipoid disorders (ICD-10 - Z13.220) 06/09/2024 Irregular menstruation, unspecified (ICD-10 - N92.6) 06/09/2024 Vitamin D deficiency, unspecified (ICD-10 - E55.9) 05/08/2024 Irregular menstruation, unspecified (ICD-10 - N92.6) [...] EpiPen if needed. Consider referral to an public area attendant for further evaluation and management. 5. Insomnia:- [...] evaluation.- Plan: Provide options for imaging centers ([place], [facility], or [place]). Schedule imaging appointments and follow up with results. Spent 45 minutes preparing to see the patient (ex review of tests/chart), obtaining and / or reviewing separately obtained history, performing a medically appropriate examination and/or evaluation, counseling and educating the patient/family/health care marketing manager, ordering medications, tests, or procedures, referring and communicating with other health tree care foreman, documenting clinical information in the electronic or other health record, independently interpreting results and communicating results to the patient/family/health care marketing manager and care coordinating patient plan. Patient alert [...] D deficiency- Low vitamin D levelsPlan:- Recommend anyi-vin-qtaahrc vitamin D supplement once daily 6. Iron levels- Iron levels are within normal rangePlan:- No intervention needed at this time Follow-up:- Schedule a follow-up appointment in 6-8 weeks to assess the patient's response to Victoza and review lab results- Address any concerns or problems during the follow-up visit- s Spent 15 minutes preventative counseling patient on [...] examination and/or evaluation, counseling and educating the patient/family/health care marketing manager, ordering medications, tests, or procedures, referring and communicating with other health tree care foreman, documenting clinical information in the electronic or other health record, independently interpreting results and communicating results to the patient/family/health care marketing manager and care coordinating patient plan. Patient alert [...] were discussed and all questions were answered. 11/14/2024 Other Assessment and Plan: 1. Diabetes Mellitus in - Initiate insulin therapy: - Lantus 10 units SC in the morning and 12 units SC at bedtime - Adjust Lantus dose by 2 units every 3 days if fasting blood glucose is not consistently [id number] mg/dL - Humalog to be taken 5-10 minutes before meals, dosage to be determined based on pre-meal blood glucose levels- Discontinue current injectable medication for obesity- Continue metformin as tolerated, pending OB evaluation- Prescribe Gvoke for hypoglycemia management (blood glucose over50 mg/dL)- Offer Baqsimi as an alternative nasal option for hypoglycemia- Instruct on blood glucose monitoring: - Check fasting blood glucose daily, target [id number] mg/dL - Check postprandial blood glucose, target [id number] mg/dL- Provide dietary counseling: - Avoid processed foods, breads, pastries, and pasta - Encourage fruits, vegetables, salads, lean meats, beans, and cheese - Advise on food safety: warm lunch meats, avoid certain cheeses and raw fish- Continue vitamins- Follow up in 4-6 weeks- Refer to high-[facility] obstetric care at [facility] 2. Medication Management- Continue metformin as tolerated- Continue Corlanor (dose not specified)- Continue Zofran as needed for nausea/vomiting- Discontinue rosuvastatin- Submit prescription for insulin (Lantus and Humalog)- Consider Basaglar and NovoLog as alternatives based on insurance coverage Spent 25 minutes preparing to see the patient (ex review of tests/chart), obtaining and / or reviewing separately obtained history, performing a medically appropriate examination and/or evaluation, counseling and educating the patient/family/health care marketing manager, ordering medications, tests, or procedures, referring and communicating with other health tree care foreman, documenting clinical information in the electronic or other health record, independently interpreting results and communicating results to the patient/family/health care marketing manager and care coordinating patient plan. Patient alert and oriented x 4 and aware of discussion noted above and in agreeance to plan in management of poorly controlled type 2 dM in , need for insulin start. Has CGM to monitor sugars closely and aware she needs to be in range 80% of time with goal fasting of 80-100 mg/dL and goal 1 hour post meal of 140 mg/dL or less and 2 hour post meal at 120 mg/dL or less. Given baqsimi for hypoglycemia prophylaxis/managem ent if needed. She is aware to follow up with OB and if they feel she needs high risk/MFM she will likely get further care for her DM if indicated. Otherwise she is aware to follow up in 4-6 weeks. Plan Of Treatment Pending Test Test Name Order Date Ultrasound thyroid 05/08/2024 Insurance Providers Payer Name Payer Address Payer Phone Subscriber Number Group Number Insured Name Patient Relationship to Insured Coverage Start Date Coverage End Date Medicare Part B [facility] [address] [address] [place] [address] [id number] Violet Lomeli Self - patient is the insured [facility] [address] [facility] [place] [address] [id number] Violet Lomeli Self - patient is the insured Medical (General) History Surgical History Surgery Date(Month/Year) 3 BACK SURGRIES
--- OUTSIDE RECORDS SUMMARY | 2025-01-19 21:43 | XMS_ITS | Patient Health Record ---
Author Organization [facility] [place] ([address]) Address [address] [place] [address] Care Team Providers Care Web Interface Developer Name Role Phone Liliana Riley Primary Care Provider Sharee Astudillo Unavailable [phone] Allergies Allergen (clinical drug ingredient) Drug/Non Drug [...] hours, PRN and per the asthma action plan; Duration: 30 day(s) 12/05/2022 Active BENADRYL 25mg 1 by mouth once day; Duration: 30 days Active VENLAFAXINE 75 mg 1 tab(s) orally 2 times a day; Duration: 30 day(s) Active OMEPRAZOLE 20 mg 1 cap(s) orally once a day; Duration: 30 day(s) Active ONDANSETRON 4 mg 1 tab(s) orally ever y 8 hours Active CETIRIZINE 10 mg 1 tab(s) orally once a day Active EPIPEN 2-LIBRADO 0.3 mg as directed intramuscularly once; Duration: 1 dose(s) Active PREDNISONE 20 mg 1 tab(s) orally once a day; Duration: 7 day(s) Active Famotidine 20 MG 1 tab(s) orally 2 times a day Active ARNUITY ELLIPTA furoate 200 mcg as directed inhaled Q4-6 hours, PRN and per the asthma action plan; Duration: 30 day(s) 12/05/2022 Active VICTOZA 18 mg/3 mL as directed subcutaneously once a day; Duration: 30 day(s) Active ALBUTEROL (EQV-PROVENTIL HFA) 90 MCG/INH 2 PUFF(S) INHALED Q4-6 HOURS, PRN AND PER THE ASTHMA ACTION PLAN; Duration: 30 DAY(S) *Please review for potential replacement for e-prescription and drug interaction check* 12/05/2022 Active Ashlyna BIPHASIC EXTENDED CYCLE 1 TAB(S) ORALLY ONCE A DAY; Duration: 91 DAY(S) *Please review and pick correct strength-formulat ion from ImageProtect options. If intended option is not shown, discontinue and re-order from Quick Search* Active lamoTRIgine 100 MG 1 tab(s) orally 2 times a day Active Corlanor 5 MG 1 tab(s) orally 2 times a day (with meals) Active EpiPen 2-Librado 0.3 MG/0.3ML as directed intramuscularly once; Duration: 1 dose(s) Active Albuterol Sulfate (2.5 MG/3ML) 0.083% 3 ml by nebulizer Q4-6 hours, PRN and per the asthma action plan; Duration: 30 day(s) 12/05/2022 Active Arnuity Ellipta 200 MCG/ACT as directed inhaled Q4-6 hours, PRN and per the asthma action plan; Duration: 30 day(s) 12/05/2022 Active metFORMIN HCl 500 MG 1 tab(s) orally 2 times a day; Duration: 30 day(s) Not-Taking Victoza 18 MG/3ML as directed subcutaneously once a day; Duration: 30 day(s) Active ASHLYNA biphasic extended cycle 1 tab(s) orally once a day; Duration: 91 day(s) Active Benadryl Allergy 25 MG 1 by mouth once day; Duration: 30 days Active LAMOTRIGINE 100 mg 1 tab(s) orally 2 times a day Active CORLANOR 5 mg 1 tab(s) orally 2 times a day (with meals) Active METFORMIN 500 mg 1 tab(s) orally 2 times a day; Duration: 30 day(s) Not-Taking Ondansetron HCl 4 MG 1 tab(s) orally every 8 hours Active Cetirizine HCl 10 MG 1 tab(s) orally once a day Active predniSONE 20 MG 1 tab(s) orally once a day; Duration: 7 day(s) Active ALBUTEROL (EQV-PROAIR HFA) 90 MCG/INH 2 PUFF(S) INHALED EVERY 6 HOURS *Please review for potential replacement for e-prescription and drug interaction check* Active Venlafaxine HCl 75 MG 1 tab(s) orally 2 times a day; Duration: 30 day(s) Active Omeprazole 20 MG 1 cap(s) orally once a day; Duration: 30 day(s) Active 1 *Please review for [...] W/U Status Risk Notes Problem Anxiety disorder (482004591) Anxiety disorder, unspecified (F41.9) Active confirmed Problem Allergic rhinitis (21204499) Other allergic rhinitis (J30.89) Active confirmed Problem Chronic rhinitis (07772222) Chronic rhinitis (J31.0) Active confirmed Problem Mild intermittent asthma (193640224) Mild intermittent asthma, uncomplicated (J45.20) Active confirmed Problem Food anaphylaxis (14042996) Anaphylactic reaction due to other food products, initial encounter (T78.09XA) Active confirmed Problem Food anaphylaxis (60743239) Anaphylactic reaction due to other food products, subsequent encounter (T78.09XD) Active confirmed Problem Allergy status t o other drugs, medicaments and biological substances (Z88.8) Active confirmed Plan Of Treatment No Information Insurance Providers Payer Name Payer Address Payer Phone Subscriber Number Group Number Insured Name Patient Relationship to Insured Coverage Start Date Coverage End Date [employer] (Medicare) Attention Claims [address] [facility] [place] [address] [phone] [id number] Violet Lomeli Self - [place] [address] [id number] Violet Lomeli Self - patient is the insured Medical (General) History Medical History History ICD Code Tachycardia Diabetes Asthma Depression, unspecified F32.A Anxiety disorder, unspecified F41.9 Allergic rhinitis due to pollen J30.1 Surgical History Surgery Date(Month/Year) neck to back surgery/ had scoliosis 2014 Extensive oral surgery 2019 Hospitalization History Reason Date(Month/Year) Neck/Back surgery 2014
--- OUTSIDE RECORDS SUMMARY | 2025-01-19 21:43 | XMS_ITS | Encounter Summary ---
Author Organization [facility] Address [address] [place] [address] Care Team Providers Care Receiving Associate Store Name Role Phone Unavailable Primary Care Provider Unavailabl e Encounter Details Date Type Department Care Team (Late st Contact Info) Description 11/27/2024 Results Follow-Up [facility] MATERNAL/ EVALUATION UNIT [address] [place] [address] Ck Bansal MD [address] [place] [address] Social History Tobacco Use Types Packs/Day Years [...] care, and heating? Not very hard 11/24/2024 [facility] [place] of Occupat ional Health - Occupational Stress [...] things needed for daily living? No 11/24/2024 [place] Depression Scale Answer Date Recorded [place] Depression Scale Total 2 11/24/2024 The thought [...] any time in the past 12 m [facility], were you homeless or living in a usp (including now)? 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 [place] [address] 01/26/2025 9:00 AM CDT Appointment [facility] MATERNAL/ EVALUATION UNIT [address] [place] [address] 02/09/2025 7:30 AM CDT Appointment [facility] MATERNAL/ EVALUATION UNIT [address] [place] [address] 03/16/2025 1:00 PM CDT Appointment [facility] [address] [place] [address] Sourav Jaimes MD [address] [place] [address] 03/24/2025 1:30 PM CDT Office Visit [facility] - Ophthalmology [address] [facility], [place] [id number] Pj Cheney, MU [address] [place] [address] documented as of this encounter Visit Diagnoses Not on filedocumented in this encounter
--- OUTSIDE RECORDS SUMMARY | 2025-01-19 21:43 | XMS_ITS | Clinical Summary ---
Author Organization [facility] ospital Address [address] [place] [address] Care Team Providers Care Gun Stocker Name Role Phone Sukhwinder Madden MD Primary [...] Cartridge) 30 gauge combo pack 30 each barrel scraper before breakfast 3 each 3 3 Active [...] 08/04/2021 Assessment & Plan (05/31/2023 4:15 PM FOOD VENDOR): Hba1c was Lab Results Component Value Date [...] on file Legal Sex Female 12:00 PM FOOD VENDOR Gender Identity Not on file Sexual Orientation Not on file Obstetrics History Last Filed Vital Signs Vital Sign Reading Time Taken Comments Blood Pressure 120/70 05/31/2023 2:17 PM FOOD VENDOR Pulse 105 05/31/2023 2:17 PM FOOD VENDOR Temperature - - Respiratory Rate 18 05/31/2023 2:17 PM FOOD VENDOR Oxygen Saturation - - Inhaled Oxygen Concentration - - Weight 80.7 kg (178 lb) 05/31/2023 2:17 PM FOOD VENDOR Height 166.4 cm (5' 5.5) 05/31/2023 2:17 PM FOOD VENDOR Body Mass Index 29.17 05/31/2023 2:17 PM FOOD VENDOR Plan of Treatment Health Maintenance Due Date [...] 5 season) 2024 06/24/2021, 09/22/2020 Influenza Vaccine (#1) 2025 , 04/26/2020, 05/28/2018, Additional history exists Hepatitis B Screening Completed 03/28/2002 , 2001, 2001 Varicella Vaccines Completed 12/24/2006, 08/04/2002 Meningococcal B Vaccine Completed 02/26/2018, 12/21 HPV Vaccines Completed 03/11/2021, 09/17, 09/06/2020 Pneumococcal vaccine <65 Completed 022, 2001, 2001, Additional history exists Procedures Procedure Name Priority Date/Time Associated Diagnosis Comments POCT HEMOGLOBIN A1C Routine 05/31/2023 2 :17 PM FOOD VENDOR Type 2 diabetes mellitus with hyperglycemia, with long-term current use of insulin (HCC) from Last 3 Months or Most Recently Relevant to Health Maintenance Results * (ABNORMAL) POCT hemoglobin A1c (05/31/2023 2:17 PM FOOD VENDOR) Hemoglobin A1C, POC 7.5 % Blood spot 05/31/2023 2:17 PM FOOD VENDOR Marco Antonio Geller MD POINT OF CARE TEST ORDERABLES Fi nal Result from Last 3 Months or Most Recently Relevant to Health Maintenance Insurance MEDICARE [place] MEDICARE [place] Care Teams Gun Stocker Relationship Specialty Start Date End Date Sukhwinder Madden MD [address] [place] [address] PCP - General Internal Medicine 04/27/22
--- OUTSIDE RECORDS SUMMARY | 2025-01-19 21:43 | XMS_ITS | Encounter Summary ---
Author Organization [facility] Address [address] [place] [address] Care Team Providers Care Heel Seat Sander Name Role Phone Unavailable Primary Care Provider Unavailabl e Reason for Visit * Reason Comments Maternal Medicine Diabetes Encounter Details Date Type Department Care Team (Late st Contact Info) Description 01/19/2025 9:30 AM CDT Hospital Encounter [facility] MATERNAL/ EVALUATION UNIT [address] [place] [address] Anna Fry, RAISE MINER-INFORMATION AND DATA ARCHITECT ANALYST [address] [place] [address] Social History Tobacco Use Types Packs/Day Years [...] care, and heating? Not very hard 11/24/2024 [facility] [place] of Occupat ional Health - Occupational Stress [...] things needed for daily living? No 11/24/2024 [place] Depression Scale Answer Date Recorded [place] Depression Scale Total 2 11/24/2024 The thought [...] any time in the past 12 m [facility], were you homeless or living in a group home (including now)? 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 Answer Date of Assessment Author No 12/26/2019 12:06 PM CDT Sridevi Rosales RN * Is person blind or have serious difficulty seeing? Answer Date of Assessment Author No 12/26/2019 12:06 PM CDT Sridevi Rosales RN * Does person have serious difficulty walking/climbing stairs? Answer Date of Assessment Author No 12/26/2019 12:06 PM CDT Sridevi Rosales RN * Does person have difficulty dressing/bathing? Answer Date of Assessment Author No 12/26/2019 12:06 PM EMILYT Srdievi Rosales RN * Does person have difficulty doing errands alone? Answer Date of Assessment Author Yes 12/26/2019 12:06 PM EMILYT Sridevi Rosales RN documented as of this encounter Mental Status * Does person have difficulty concentrating/remembering/making decisions? Answer Entry Date Author No 12/26/2019 12:06 PM Sridevi Kraft RN documented in this encounter Progress Notes * Anna Fry, CARMEN-INFORMATION AND DATA ARCHITECT ANALYST - 01/19/2025 9:31 AM CDT Images from the original note were not included. AGRICULTURAL CHEMICALS INSPECTOR High Risk Clinic Return Visit 01/19/25 S: Violet Mack is a 24 year old @ 17w0d, based on a 9 week u/s. EDC: 06/29/24 Pt is here today for routine follow up appointment. Denies regular contractions, vaginal bleeding and/or leaking of fluid. Denies Headache, vision changes, RUQ pain. Denies GI/. Pt denies dizziness, lightheadedness and SOB. Reports having allergy Symptoms for which she is taking Zyrtec. Pt missed her dose of Lantus last night. Pt hasn't taken it this a.m. Her dosing times is 11:00 [id number]. Pt states her Dexcom fell off in the shower last night. She does have another sensor at home and is planning on placing a new one today. Agreeable to meet with CDE today. Pt reports eating Air Heads and Juice this morning. Her blood sugar in the clinic is 191. Blood glucose globally elevated w ith all meals. Pt reports eating sugar. She states if she doesn't have sugar she feels very fatigued. AGRICULTURAL CHEMICALS INSPECTOR requested that the television installer see this patient today. O: Vitals: 01/19/25 0937 BP: 102/71 Pulse: 106 Weight: 76.8 kg (169 lb 6.4 oz) Physical Exam Overall: Alert and oriented x3 with no apparent signs of distress Skin: warm and dry, intact. Eyes: sclera non icteric, normal ocular movements. Heart: Normal peripheral perfusion Lungs: Normal respiratory effort, negative for coughing or wheezing Abdomen: Soft and non tender, Gravid FHR: 150 per doppler Extremities: No cyanosis, no edema, equal size & shape bilaterally Psychiatric: Appropriate mood and affect Monitoring/ Blood Glucose Control 01/05/25 to 01/18/25 Growth: No results found for any visits on 01/19/25. Recent Labs Component Name 01/12/25 1002 12/08/24 1109 12/01/24 1224 PROTEINUA - - Negative GLUCOSEUA Negative - Normal KETONEUA - - Negative - = values in this interval not displayed. A/P: Violet Mack is a 24 year old at 17w0d Supervision of - PNC initially with Dr. Cristina Stover at [facility] - PNL: : A+/I/-/-, NR/NR - H.0 - Ferritin: 128 - GC/CT/Trich: Neg x3 - Urine culture: Neg - UDS: Neg - Hgb Elec: Wnl - CF: Neg - SMA: Neg - Genetics: LR NIPT - Pap: (11/24/24) NILM - MOD: TBD (see h/o back surgery below) - MOF: continue to discuss - MOC: Nexplanon - EPDS: 2 - Rhogam: Not indicated - 3T labs: @ 28 wks - GCT: - Immunizations: - Tdap @ 27-36 wks - Influenza: - COVID: - RSV: - GBS: T2DM - Unclear why pt has diagnosis at such a young age without other identifiable risk factors - EKG ordered - not yet done - Opthalmology referral placed for eye exam - scheduled 03/24 - Baseline labs: - A1c (11/24) 6.5 - CMP wnl - EKG not yet done (order placed) - Baseline 24hr urine protein: TLTC - Regimen she presented with at [facility]: Lantus 03/29, novolog- 4u/4u/4u with 1u correction; metformin 500 BID - Current regimen: Lantus , Log 6 with lunch (most consistent meal she eats) - Pt reports rash and throat tightening allergy to NSAIDs; defer LDASA, discussed with Pharmacy Plan: - Continue insulin regimen of Lantus 14/14u, Log 6u with all meals. - echo 24-28w (Ordered) - F/u EKG and ophthalmology referral (not yet completed); encouraged Pt to schedule these appts Ophthalmology scheduled, encouraged to schedule EKG - Twice weekly ANT at 32w Asthma - Rx sent for Symbicort BID + albuterol PRN - Rare albuterol use, none this week, well controlled with avoidance of heat - [01/12] Pt reports symptoms well controlled on current regimen - 01/19/25: Reports Allergy Sx. Taking Zyrtec. ?Bipolar disorder LUIS MANUEL/ MDD PTSD - Pt reports diagnosed with BPD as a child but pt reports she doesn't have it. She reports only hasanxiety/depression. Reports at age 11 she was started on a medication (cannot remember the name) for BPD that put me in a psychiatry crespo for 1 week. - Current psychiatrist is Adán Correia APRN in [place], [place] - Prior to was on Lamotrigine 100mg BID and Venlafaxine 75mg QD - Recommendation from psychiatrist (12/15, [facility]) - Continue Venlfaxine 75mg QD - Lamotrigine taper 25mg QD x14D > 50mg QD x14D - Patient has started taper at 25mg QD; plans to start 50mg next week - Mood today is stable, denies SI/HI; only has anxiety when she's alone Plan: - Continue to follow with taper, to be managed by primary psychiatrist Dr. Frazier - Follow up with Dr. Frazier H/o back surgery H/o scoliosis Paraspinal muscle pain - Current orthopedist: Dr. Daniel Espinosa ([facility])- last visit seen in [place] was 05/25/22. In notes reports pt had posterior spinal fusion from T4-L2 by Dr. Downing in 2014, reoperation in 2017 with return to OR next day. - Note mentions Current imaging demonstrates intact implants good alignment. - Recommendation at that time was PT and if continued pain then repeat CT of thoracic and lumbar spine to assess for possible pseudo. - Pt declined PT as previous experience was it made pain worse. Not currently taking any analgesicsfor pain and pain only moderately controlled. - Pt reports she has a 10 or 20 lbs lifting restriction and therefore thinks she cannot push during labor and will need a pCS Plan: - Recommended tylenol 1g q6h PRN; currently not taking any analgesics - Reviewed letter from Dr. Espinosa which notes pCS is not medically indicated; Pt understands ADHD Unspecified learning disorder - pt reported at [facility] does not have ADHD anymore - Pt's grandmother (bmx rider) reports patient has a learning disorder- could not provide furtherdetails Complex social situation - Pt's mother had alcohol syndrome and had adopted the patient but now the pt is cared for byher adoptive grandmother. Pt's mother present at some visits. - Pt also with unspecified learning disorder/possible developmental delay (see above) Plan: - CLINICAL COUNSELOR consulted - Recommend Nurses for Newborns after deliver Palpitations POTS - Pt has h/o palpitations and dx with POTs by dehydrating press operator, Dr. 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 Current delivery plan: anticipate (h/o back surgery - see above) RTC in 1 week SHAISTA Horvath 01/19/2025 9:46 AM The total time spent today 30 minutes performing chart prep, review of data, physical exam, patienteducation and visit with the patient. documented in this encounter Plan of Treatment Upcoming Encounters Date Type Department Care Team (Late st Contact Info) Description 01/26/2025 9:00 AM CDT Appointment [facility] MATERNAL/ EVALUATION UNIT [address] [place] [address] 01/26/2025 9:00 AM CDT Appointment [facility] MATERNAL/ EVALUATION UNIT [address] [place] [address]. [address] [place] [address] 02/09/2025 7:30 AM CDT Appointment [facility] MATERNAL/ EVALUATION UNIT [address] [place] [address]. [address] [place] [address] 03/16/2025 1:00 PM CDT Appointment [facility] [address] [place] [address] Sourav Jaimes MD [address] [facility] [address] [place] [address] 03/24/2025 1:30 PM CDT Office Visit [facility] - Ophthalmology [address] [facility], [place] [id number] Pj Cheney, [facility] [place] [phone] Scheduled Orders Name Type Priority Associated Diagnoses Orde r Schedule ECHO - CUPID Echocardiography Cupid Routine Type 2 diabetes mellitus without complication, unspecified whether termite technician insulin use (HCC) ONCE for 1 Occurrences starting 01/19/2025 until 01/19/2025 documented as of this encounter Procedures Procedure Name Priority Date/Time Associated Diagnosis Comments URINALYSIS - POCT (IP) BEAKER INTERFACE Routine 01/19/2025 9:48 AM CDT GLUCOSE - POINT OF CARE Routine 01/19/2025 9:43 AM CDT documented in this encounter Results * (ABNORMAL) URINALYSIS - POCT (IP) BEAKER INTERFACE (01/19/2025 9:48 AM CDT) Color UA POCT Yellow Straw, Yellow, Dark Yellow, Light Yellow 01/19/2025 9:50 AM CDT [facility] Clarity UA POCT Clear Clear 9:50 AM CDT [facility] Specific [place] UA POCT 1.020 1.005 - 1.030 01/19/2025 9:50 AM CDT [facility] pH UA POCT 6.0 5.0 - 8.0 pH 01/19/2025 9:50 AM CDT [facility] Protein UA POCT Negative Negative 9:50 AM CDT [facility] Blood UA POCT Negative Negative 01/19/2025 9:50 AM CDT [facility] Leukocyte UA POCT Negative Negative 01/19/2025 9:50 AM CDT [facility] Nitrite UA POCT Negative Negative 9:50 AM CDT [facility] Glucose UA POCT 1+(A) Negative 9:50 AM CDT [facility] Ketone UA POCT Negative Negative 01/19/2025 9:50 AM CDT [facility] Bilirubin UA POCT Negative Negative 01/19/2025 9:50 AM CDT [facility] Urobilinogen UA POCT 0.2 0.1 - 1.0 EU/dL 01/19/2025 9:50 AM CDT [facility] Urine URINE / Unknown 01/19/2025 9 :48 AM CDT 01/19/2025 9:50 AM CDT Anna Fry RAISE MINER-INFORMATION AND DATA ARCHITECT ANALYST LAB - POINT OF CARE ORDERABLES Final Result [facility] [address] [place] [address] * (ABNORMAL) GLUCOSE - POINT OF CARE (01/19/2025 9:43 AM CDT) Pathologist [facility] Glucose WB/POC 191(H) 70 - 99 mg/dL 01/19/2025 9:52 AM CDT [facility] Specimen Type Arterial/C apillary 01/19/2025 9:52 AM CDT [facility] Blood BLOOD SPECIMEN / Unknown 01/19/2025 9:43 AM CDT 01/19/2025 9:52 AM CDT Anna Fry APRN-LAZ LAB - POINT OF CARE ORDERABLES Final Result [facility] [address] [place] [address] documented in this encounter Visit Diagnoses Diagnosis Type 2 diabetes mellitus without complication, unspecified whether intermediate insulin use (HCC)- Primary documented in this encounter
--- OUTSIDE RECORDS SUMMARY | 2025-01-19 21:43 | XMS_ITS | Clinical Summary ---
Author Organization [facility]ila [facility] Address [address] [place] [address] Care Team Providers Care Drupal Architect Name Role Phone Hernan Madden MD Primary [...] Encounters Date Type Department Care Team Description 12/31/2024 External Device Data ST[facility] ABSTRACTION Provider, Abstract 12/30/2024 External Device Data [place] ABSTRACTION Provider, Abstract 12/02/2024 External Device Data [place] ABSTRACTION Provider, Abstract 11/11/2024 External Device Data [facility] ABSTRACTION Provider, [...] on file Legal Sex Female 1:45 PM AUTOMATIC STACKER Gender Identity Not on file Sexual Orientation [...] 167.6 cm (5' 6) 06/12/2024 11:49 AM AUTOMATIC STACKER Body Mass Index 27.18 06/12/2024 11:49 AM AUTOMATIC STACKER Plan of Treatment Upcoming Encounters Date Type Department Care Team (Late st Contact Info) Description 04/23/2025 11:00 AM AUTOMATIC STACKER Office Visit [facility] Oncology and Hematology - [place] [address] [place] [phone] Mike Llanes MD [address] [facility] [address] [place] [address] Health Maintenance Due Date Last Done Comments CHLAMYDIA SCREENING (ANNUAL) 11-24 YEARS 2012 DIABETES ANNUAL FOOT EXAM 2019 DIABETES ANNUAL RETINAL EXAM 2019 DIABETES MICROALBUMIN ANNUAL SCREEN 2019 LDL CHOLESTEROL ANNUAL 2019 HPV/Cotest (21-29) 2022 DTAP/TDAP/TD VACCINES (7 - T d or Tdap) 11/18/2022 11/18/2012, 12/24/2006, 08/04/2002, Additional history exists COVID-19 Vaccine (2023-2 5 season) 2024 04/03/2023, 06/24/2021, 09/22/2020 INFLUENZA VACCINE (#1) 2025 , 04/03/2023, 04/04/2021, Additional history exists DIABETES HBA1C Q 6 MONTHS 05/26/2025 11/24/2024, CERVICAL CANCER SCREENING 11/25/2027 PAP SMEAR 11/25/2027 11/24/2024 HEPATITIS B VACCINES Completed 03/28/2002, 2001, 2001 HPV VACCINES Completed 03/11/2021, 09/17, 09/06/2020 Insurance MEDICARE PART A AND B [facility] Care Teams Drupal Architect Relationship Specialty Start Date End Date Hernan Madden MD [address] [place] [phone] PCP - General Internal Medicine 06/27/24
--- OUTSIDE RECORDS SUMMARY | 2025-01-19 21:43 | XMS_ITS | Encounter Summary ---
Author Organization [facility] Address [address] [place] [address] Care Team Providers Care Principal Research Economist Name Role Phone Unavailable Primary Care Provider Unavailabl e Encounter Details Date Type Department Care Team (Latest Contact Info) Description 01/19/2025 Travel Social History Tobacco Use Types Packs/Day Years [...] care, and heating? Not very hard 11/24/2024 [facility] [place] of Occupat ional Health - Occupational Stress [...] things needed for daily living? No 11/24/2024 Hestand Depression Scale Answer Date Recorded Hestand Depression Scale Total 2 11/24/2024 The thought [...] any time in the past 12 m ont, were you homeless or living in a custodial (including now)? 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 [address] [place] [address] 01/26/2025 9:00 AM CDT Appointment [facility] MATERNAL/ EVALUATION UNIT [address] [place] [address] 02/09/2025 7:30 AM CDT Appointment [facility] MATERNAL/ EVALUATION UNIT [address] [place] [address] 03/16/2025 1:00 PM CDT Appointment [facility] Heart & Vascular Care [address] [place] [address] Sourav Jaimes MD [address] [place] [address] 03/24/2025 1:30 PM CDT Office Visit [facility] - Ophthalmology [address] [place] [phone] Pj Cheney, [address] [place] [address] documented as of this encounter Visit Diagnoses Not on filedocumented in this encounter
--- OUTSIDE RECORDS SUMMARY | 2025-01-19 21:43 | XMS_ITS | Encounter Summary ---
Author Organization [facility] Address [address] [facility] [place] [address] Care Team Providers Care Mass Spec Name Role Phone Unavailable Primary Care Provider Unavailabl e Encounter Details Date Type Department Care Team (Late st Contact Info) Description 01/19/2025 9:30 AM CDT Hospital Encounter [facility] MATERNAL/ EVALUATION UNIT [address] [place] [address] Anna Fry, [place] MACHINE OPERATOR-RACING BOARD MARKER [address] [place] [address] Social History Tobacco Use Types [...] [facility] [place] of Occupat ional Health - Occupational Stress [...] any time in the past 12 m [facility], were you homeless or living in a correction (including now)? No 11/24/2024 Estimated Date of Delivery Comme nts Yes 06/29/2025 Based on Ultraso und Sex and Gender Information Value Date Recorded Sex Assigned at Not on file Legal Sex Female 5:45 AM SPEEDER MACHINE OPERATOR Gender Identity Not on file Sexual [...] Info) Description 01/26/2025 9:00 AM CDT Appointment [facility] MATERNAL/ EVALUATION UNIT [address] [place] [address] 01/26/2025 9:00 AM CDT Appointment [facility] MATERNAL/ EVALUATION UNIT [address] [place] [address] 02/09/2025 7:30 AM CDT Appointment [facility] MATERNAL/ EVALUATION UNIT [address] [place] [address] 03/16/2025 1:00 PM CDT Appointment [facility] Heart & Vascular Care [address] [place] [address] Sourav Jaimes MD [address] [place] [address] 03/24/2025 1:30 PM CDT Office Visit [facility] - Ophthalmology [address] [facility], [place] [phone] Pj Cheney OD [address] [place] [address] documented as of this encounter Visit Diagnoses Not on filedocumented in this encounter
--- OUTSIDE RECORDS SUMMARY | 2025-01-19 21:43 | XMS_ITS ---
Author Organization [facility] ([address]) Address [address] [place] [address] Care Team Providers Care School Commissioner Name Role Phone Liliana Riley Primary Care Provider UnavailSharee Carlos Unavailable [phone] ZZ-Migration, Provider Unavailable Unavailab le Allergies Allergen (clinical drug ingredient) Drug/Non Drug Allergy documented on EMR Reaction Allergy Type Onset Date Status CHLOR-TRIMETON (uncoded) itching Allergy Active DAYQUIL COUGH (uncoded) hives Allergy Active Azithromycin itching Drug Allergy Acti ve ibuprofen Ibuprofen increase in headaches Drug Allergy Active REASON FOR VISIT [facility] To [facility] Conversion Encounter Medications Medication SIG (Take, Route, Frequency, Duration) Notes Start Date End Date Status metFORMIN HCl 500 MG 1 tab(s) orally 2 times a day; Duration: 30 day(s) Not-Taking Victoza 18 MG/3ML as directed subcutaneously once a day; Duration: 30 day(s) Active Benadryl Allergy 25 MG 1 by mouth once day; Duration: 30 days Active ALBUTEROL (EQV-PROAIR HFA) 90 MCG/INH 2 PUFF(S) INHALED EVERY 6 HOURS *Please review for potential replacement for e-prescription and drug interaction check* Active Venlafaxine HCl 75 MG 1 tab(s) orally 2 times a day; Duration: 30 day(s) Active Ondansetron HCl 4 MG 1 tab(s) orally every 8 hours Active Cetirizine HCl 10 MG 1 tab(s) orally once a day Active predniSONE 20 MG 1 tab(s) orally once a day; Duration: 7 day(s) Active Omeprazole 20 MG 1 cap(s) orally once a day; Duration: 30 day(s) Active 1 *Please review for potential replacement for e-prescription and drug interaction check* Active Famotidine 20 MG 1 tab(s) orally 2 times a day Active Arnuity Ellipta 200 MCG/ACT as directed inhaled Q4-6 hours, PRN and per the asthma action plan; Duration: 30 day(s) 12/05/2022 Active ALBUTEROL (EQV-PROVENTIL HFA) [...] action plan; Duration: 30 day(s) 12/05/2022 Active Ashlyna BIPHASIC EXTENDED CYCLE 1 TAB(S) ORALLY ONCE A DAY; Duration: 91 DAY(S) *Please review and pick correct strength-formulat ion from [employer] options. If intended option is not shown, discontinue and re-order from Quick Search* Active lamoTRIgine 100 MG 1 tab(s) orally 2 times a day Active Corlanor 5 MG 1 tab(s) orally 2 times a day (with meals) Active Encounters Encounter Location Date Provider Diagnosis [address] [address] 12/01/2023 Provider ADAMA-Phyllis Mild intermittent asthma, uncomplicated J45.20 Assessments Encounter Date Diagnosis (ICD Code) Assessment Notes Treatment Notes Treatment Clinical Notes Section Notes 12/01/2023 Mild intermittent asthma, uncomplicated (ICD-10 - J45.20) Plan Of Treatment Medication Medication Name Sig Start Date Stop Date Notes Arnuity Ellipta 200 MCG/ACT as directed inhaled Q4-6 hours, PRN and per the asthma action plan; Duration: 30 day(s) 12/05/2022 ALBUTEROL (EQV-PROVENTIL HFA) 90 MCG/INH 2 PUFF(S) INHALED Q4-6 HOURS, PRN AND PER THE ASTHMA ACTION PLAN; Duration: 30 DAY(S) 12/05/2022 *Please review for potential replacement for e-prescription and drug interaction check* EpiPen 2-Librado 0.3 MG/0.3ML as directed intramuscularly once; Duration: 1 dose(s) Albuterol Sulfate (2.5 MG/3ML) 0.083% 3 ml by nebulizer Q4-6 hours, PRN and per the asthma action plan; Duration: 30 day(s) 12/05/2022 Progress Notes * Amy MACKWillOB:2000 (24 yo F)Acc No.[id number]:12/01/2023 Patient: Violet KELLY Provider: Karma Ferguson :2000 A ge:23 Y S ex:Female Date:12/01/2023 Address:[address] [place], [place] [phone] Pcp:Liliana Riley Subjective: * Chief Complaints: * [...] * Electronic signature of Anh GALAN-Migration on 01/19/2025 at 11:14 AM CDT Sign off status: Pending * Provider: Karma torres Migration Date: 0 12/01/2023 Generated for Marti bermeo/Mao/Nahid on: 0 01/19/2025 11:14 AM CDT
--- OUTSIDE RECORDS SUMMARY | 2025-01-19 21:43 | XMS_ITS | Patient Health Record ---
Author Organization [facility] Address [address] [address] Care Team Providers Care Sanitary Inspector Name Role Phone Cici Fuller Primary Care Provider Allergies Allergen (clinical drug ingredient) Drug/Non Drug Allergy documented on EMR Reaction Allergy Type Onset Date Status Z PACK (uncoded) Unknown Allergy Act jae Pepper PEPPER (uncoded) Unknown Allergy Act jae Results Component Value Reference Range Notes COMPREHENSIVE METABOLIC PANE L Reviewed date:05/17/2024 01:39:32 PM Interpretation: Performing Lab:KS, [facility], [address], [place], [address] Ebenezer Banks MD Notes/Report: VITAMIN D, 25-HYDROXY, LC/MS /MS Reviewed date:05/17/2024 01:59:29 PM Interpretation: Performing Lab:KS, [facility], [address], [place], [address] Ebenezer Banks MD Notes/Report: ACTH, PLASMA Reviewed date:05/21/2024 09:55:19 PM Interpretation: Performing Lab:AMD, [facility], [address], [place], [address] Chadwick Underwood M.D.,PhD Notes/Report: T3, FREE Reviewed date:05/17/2024 01:59:36 PM Interpretation: Performing Lab:KS, [facility], [address], [place], [address] Ebenezer Banks MD Notes/Report: CORTISOL, TOTAL Reviewed date:05/17/2024 02:05:26 PM Interpretation: Performing Lab:KS, [facility], [address], [place], [address] Ebenezer Banks MD Notes/Report: DHEA SULFATE Reviewed date:05/17/2024 02:05:44 PM Interpretation: Performing Lab:KS, [facility], [address], [place], [address] Ebenezer Banks MD Notes/Report: ESTRADIOL Reviewed date:05/17/2024 01:59:50 PM Interpretation: Performing Lab:KS, [facility], [address], [place], [address] Ebenezer Banks MD Notes/Report: FSH Reviewed date:05/17/2024 02:05:53 PM Interpretation: Performing Lab:KS, [facility], [address], [place], [address] Ebenezer Banks MD Notes/Report: HEMOGLOBIN A1c Reviewed date:05/17/2024 01:59:21 PM Interpretation: Performing Lab:[facility], [address], [place], [address] Ebenezer Banks Notes/Report: INSULIN Reviewed date:05/17/2024 02:06:08 PM Interpretation: Performing Lab:KS, [facility], [address], [place], [address] Ebenezer Banks MD Notes/Report: LH Reviewed date:05/17/2024 02:06:01 PM Interpretation: Performing Lab:KS, [facility], [address], [place], [address] Ebenezer Banks MD Notes/Report: MAGNESIUM Reviewed date:05/17/2024 01:39:49 PM Interpretation: Performing Lab:KS, [facility], [address], [place], [address] Ebenezer Banks MD Notes/Report: CBC (INCLUDES DIFF/PLT) Reviewed date:05/17/2024 01:31:12 PM Interpretation: Performing Lab:KS, [facility], [address], [place], [address] Ebenezer Banks MD Notes/Report: MICROALBUMIN, RANDOM URINE ( W/CREATININE) Reviewed date:05/17/2024 01:39:16 PM Interpretation: Performing Lab:JOHN, [facility], [address], [place], [address] Ebenezer Banks MD Notes/Report: VITAMIN B12/FOLATE, SERUM PA CHA Reviewed date:05/17/2024 01:59:43 PM Interpretation: Performing Lab:[facility], [address], [place], [address] Ebenezer Banks MD Notes/Report: PROGESTERONE Reviewed date:05/17/2024 02:00:13 PM Interpretation: Performing Lab:[facility], [address], [place], [address] Ebenezer Banks MD Notes/Report: IRON AND TOTAL IRON BINDING CAPACITY Reviewed date:05/17/2024 01:39:41 PM Interpretation: Performing Lab:[facility], [address], [place], [address] Ebenezer Banks MD Notes/Report: LIPID PANEL Reviewed date:05/17/2024 01:39:59 PM Interpretation: Performing Lab:[facility], [address], [place], [address] Ebenezer Banks MD Notes/Report: T4, FREE Reviewed date:05/17/2024 01:59:57 PM Interpretation: Performing Lab:[facility], [address], [place], [address] Ebenezer Banks MD Notes/Report: TSH Reviewed date:05/17/2024 02:00:05 PM Interpretation: Performing Lab:JOHN, [facility], [address], [place], [address] Ebenezer Banks MD Notes/Report: THYROID PEROXIDASE ANTIBODIE S Reviewed date:05/17/2024 02:05:36 PM Interpretation: Performing Lab:CB, [facility], [address] [place], [address] Paresh Lee Notes/Report: THYROID PEROXIDASE ANTIBODIES <1 <9 IU/mL TESTOSTERONE, FREE (DIALYSIS ) AND TOTAL,MS Reviewed date:05/17/2024 01:57:16 PM Interpretation: Performing Lab:Z3E, [facility], [address] [facility] [address], [address], [place], [address] Chanel Mcfadden MD,PhD Notes/Report: TESTOSTERONE, TOTAL, MS 19 2-45 ng/dL For additional information, please refer to https://education.[employer].com/faq/FGQ956 (This link is being provided for informational/educational purposes only.) (Note) This test was developed and its analytical performance characteristics have been determined by [employer]. It has not been cleared or approved by the FDA. This assay has been validated pursuant to the CLIA regulations and is used for clinical purposes. TESTOSTERONE, FREE 4.5 0.1-6.4 pg/mL (Note) This test was developed and its analytical performance characteristics have been determined by [employer]. It has not been cleared or approved by the FDA. This assay has been validated pursuant to the CLIA regulations and is used for clinical purposes. 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 Problem Irregular menstruation (01463578) Irregular menstruation, unspecified (N92.6) Active confirmed Vital Signs Heart Rate 82 /min 06/09/2024 Blood pressure diastolic 70 mm Hg 06/09/2024 Height 66 in 06/09/2024 Blood pressure systolic 110 mm Hg 06/09/2024 Weight 180 lbs 06/09/2024 BMI 29.05 kg/m2 06/09/2024 Encounters Encounter Location Date Provider [facility] [employer] [address] [place] [address] 05/08/2024 Cici Fuller Type 2 diabetes elle itus with hyperglycemia E11.65 ; Other fatigue R53.83 ; Obesity, unspecified E66.9 ; Encounter for screening for lipoid disorders Z13.220 ; Irregular menstruation, unspecified N92.6 ; Vitamin D deficiency, unspecified E55.9 and Nontoxic goiter, unspecified E04.9 [facility] [employer] [address] [place] [address] 06/09/2024 Cici Fuller Type 2 diabetes elle [...] EpiPen if needed. Consider referral to an automobile mechanic helper for further evaluation and management. 5. Insomnia:- [...] evaluation.- Plan: Provide options for imaging centers ([place], [facility], or [place]). Schedule imaging appointments and follow up with results. Spent 45 minutes preparing to see the patient (ex review of tests/chart), obtaining and / or reviewing separately obtained history, performing a medically appropriate examination and/or evaluation, counseling and educating the patient/family/health care attorney, ordering medications, tests, or procedures, referring and communicating with other health career development facilitator, documenting clinical information in the electronic or other health record, independently interpreting results and communicating results to the patient/family/health care attorney and care coordinating patient plan. Patient alert [...] D deficiency- Low vitamin D levelsPlan:- Recommend [id number] vitamin D supplement once daily 6. Iron [...] evaluation, counseling and educating the patient/family/health care attorney, ordering medications, tests, or procedures, referring and communicating with other health career development facilitator, documenting clinical information in the electronic or other health record, independently interpreting results and communicating results to the patient/family/health care attorney and care coordinating patient plan. Patient alert [...] Coverage End Date WPS Medicare Part B [place] Claims Department [address] [address] [place] [address] [id number] Violet Lomeli Self - patient is the insured [employer] [place] [address] [employer] [facility] [place] [id number] Violet Lomeli Self - patient is the insured Medical (General) History Medical History History ICD Code TACHICARDIA DIABETIES Surgical History Surgery Date(Month/Year) 3 BACK SURGRIES
--- OUTSIDE RECORDS SUMMARY | 2025-01-19 21:43 | XMS_ITS | Encounter Summary ---
Author Organization [facility] Address [address] [facility] [place] [address] Care Team Providers Care Polysomnographic Technician Name Role Phone Marcelle Hernandez MD Primary Care Provider [phone] Reason for Visit * Reason Onset Date Comments Scheduling 06/27/2019 Encounter Details Date Type Department Care Team (Late st Contact Info) Description 06/27/2019 Telephone [facility] [address] [place] [address] Mita Crum MD [address] [place] [address] Scheduling Social History Tobacco Use Types Packs/Day Years Used Date Smoking Tobacco: Never Smokeless Tobacco: Never Alcohol Use Standard Drinks/Week Comments No 0 (1 standard drink = 0.6 oz pur e alcohol) Comments No Sex and Gender Information Value Date Recorded Sex Assigned at Not on file Legal 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 However, she expressed understanding at having to reschedule. * Telephone Encounter - Ciera Peterson RN - 09/10/2019 3:00 PM CDT Discussed plan to reschedule EGD, mom is aware that material assembler will be calling to arrange. * Telephone Encounter - Mita Crum MD - 09/10/2019 2:56 PM CDT Unfortunately need to reschedule Violet's elective upper endoscopy for 2-3 months given COVID19 concerns * Telephone Encounter - Emily Lozano RN - 08/18/2019 10:51 AM COAL CUTTING MACHINE OPERATOR Verified orders in epic. Prep instructions given to family in clinic. CUTTING MACHINE OPERATOR * Telephone Encounter - Nayeli Toledo - 08/18/2019 10:49 AM COAL CUTTING MACHINE OPERATOR Spoke with Stephanie in the clinic, scheduled EGD for 09/19/2019 @ 2:[address] Crum. CUTTING MACHINE OPERATOR * Telephone Encounter - Glenna Calderon RN - 06/27/2019 1:28 PM CST Patient will need appointment with with MD before any procedures are ordered/scheduled. Will route to scheduling. May schedule with any provider as it has been so long since she has been seen. CUTTING MACHINE OPERATOR * Telephone Encounter - Felisa Ramesh - 06/27/2019 1:22 PM CST Mom called and left a message that Dr. Madsen from [facility] is referring this pt to Dr. Crum. Mom says that Dr. Madsen wants the pt to have an upper GI scheduled before she will give medication. CUTTING MACHINE OPERATOR documented in this encounter Plan of Treatment Upcoming Encounters Date Type Department Care Team (Late st Contact Info) Description 01/26/2025 9:[address] [facility] MATERNAL/ EVALUATION UNIT [address] [place] [address] 01/26/2025 9:[address] [facility] MATERNAL/ EVALUATION UNIT [address] [place] [address] 02/09/2025 7:[address] [facility] MATERNAL/ EVALUATION UNIT [address] [facility] [address] [place] [address] 03/16/2025 1:00 PM CDT Appointment [facility] Heart & Vascular Care [address] [place] [address] Sourav Jaimes MD [address] [facility] [address] [place] [address] 03/24/2025 1:30 PM CDT Office Visit [facility] [address] [place] [phone] Pj Cheney, [facility] [address] [place] [phone] documented as of this encounter Visit Diagnoses Not on filedocumented in this encounter Additional Health Concerns Infection Onset Date Last Indicated Resolved Time COVID-19 Under Investigation 12/22/2019 12/23/2019 12/24/2019 2:58 PM CDT documented as of this encounter Care Teams Polysomnographic Technician Relationship Specialty Start Date End Date Marcelle Hernandez MD [address] [place] [address] PCP - General Pediatrics 12/27/15 09/30/24 documented as of this encounter
--- OUTSIDE RECORDS SUMMARY | 2025-01-19 21:43 | XMS_ITS | Encounter Summary ---
Author Organization [facility] Address [address] [place] [address] Care Team Providers Care Diamond Broker Name Role Phone Marcelle Hernandez MD Primary Care Provider [phone] Encounter Details Date Type Department Care Team (Late st Contact Info) Description 09/17/2019 Telephone [facility] Pediatrics - Diabetes [address] [address] Camron Brandon, CHILDREN'S MINISTRY DIRECTOR-ENVIRONMENTAL STUDIES DEPARTMENT CHAIR [address] [place] [id number] Social History Tobacco Use Types Packs/Day Years Used Date Smoking Tobacco: Never Smokeless Tobacco: Never Alcohol Use Standard Drinks/Week Comments No 0 (1 standard drink = 0.6 oz pur e alcohol) Comments No Sex and Gender Information Value Date Recorded Sex Assigned at Not on file Legal 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 [address] [address] 01/26/2025 9:00 AM CDT Appointment [facility] [address] [place] [id number] 02/09/2025 7:30 AM CDT Appointment [facility] [address] [place] [address]. [address] [address] 03/16/2025 1:00 PM CDT Appointment [facility] [address] [place] [address] Sourav Jaimes MD [address] [facility] [address] [place] [address] 03/24/2025 1:30 PM CDT Office Visit [facility] - Ophthalmology [address] [facility], [place] [phone] Pj Cheney, MU [address] [place] [address] documented as of this encounter Visit Diagnoses Not on filedocumented in this encounter Additional Health Concerns Infection Onset Date Last Indicated Resolved Time COVID-19 Under Investigation 12/22/2019 12/23/2019 12/24/2019 2:58 PM CDT documented as of this encounter Care Teams Diamond Broker Relationship Specialty Start Date End Date Marcelle Hernandez MD [address] [place] [address] PCP - General Pediatrics 12/27/15 09/30/24 documented as of this encounter
--- OUTSIDE RECORDS SUMMARY | 2025-01-19 21:44 | XMS_ITS | Referral Summary ---
Author Organization [facility] Address [address] [place] [address] Care Team Providers Care Wall Taper Helper Name Role Phone Sukhwinder Madden MD Primary [...] Cartridge) 30 gauge combo pack 30 each ship boat or barge mate before breakfast 3 each 3 3 Active [...] 08/04/2021 Assessment & Plan (05/31/2023 4:15 PM KNOBBER): Hba1c was Lab Results Component Value Date [...] on file Legal Sex Female 12:00 PM KNOBBER Gender Identity Not on file Sexual Orientation Not on file Last Filed Vital Signs Vital Sign Reading Time Taken Comments Blood Pressure 120/70 05/31/2023 2:17 PM KNOBBER Pulse 105 05/31/2023 2:17 PM KNOBBER Temperature - - Respiratory Rate 18 05/31/2023 2:17 PM KNOBBER Oxygen Saturation - - Inhaled Oxygen Concentration - - Weight 80.7 kg (178 lb) 05/31/2023 2:17 PM KNOBBER Height 166.4 cm (5' 5.5) 05/31/2023 2:17 PM KNOBBER Body Mass Index 29.17 05/31/2023 2:17 PM KNOBBER Plan of Treatment Not on file Procedures Procedure Name Priority Date/Time Associated Diagnosis Comments POCT HEMOGLOBIN A1C Routine 05/31/2023 2 :17 PM KNOBBER Type 2 diabetes mellitus with hyperglycemia, with long-term current use of insulin (HCC) from Last 3 Months or Most Recently Relevant to Health Maintenance Results * (ABNORMAL) POCT hemoglobin A1c (05/31/2023 2:17 PM KNOBBER) Hemoglobin A1C, POC 7.5 % Blood spot 05/31/2023 2:17 PM KNOBBER Marco Antonio Geller MD POINT OF CARE TEST ORDERABLES Fi nal Result from Last 3 Months or Most Recently Relevant to Health Maintenance Insurance MEDICARE [facility] MEDICARE [employer] Care Teams Wall Taper Helper Relationship Specialty Start Date End Date Sukhwinder Madden MD [address] [place] [address] PCP - General Internal Medicine 04/27/22
--- OUTSIDE RECORDS SUMMARY | 2025-01-19 21:44 | XMS_ITS | Clinical Summary ---
Author Organization [facility] Address [address] [place] [address] Care Team Providers Care Analysis Intern Name Role Phone Unavailable Primary Care Provider Unavailabl e Source Comments [facility]non-owned Affiliates and Associated Physician Practices is amultiple site organization consisting of ambulatory clinics and hospital sitesin [place], [place], [place]. This disclosure is being madepursuant to the Care Everywhere program and may not contain all information available regarding this patient. Last updated 18.[facility] Allergies Active Allergy Reactions Criticality Noted Date Comments Advil Cold-Sinus Itching 11/28/2024 Blue Dyes Itching 12/01/2024 Chlorpheniramine Urticaria,Itching Medium 12/27/2015 chlortimatime Guaifenesin Urticaria,Itching Medium 11/28/2024 Ibuprofen Rash,Itching Medium 12/01/2024 Red dye Tirzepatide Other 11/28/2024 Vaginal bleeding Semaglutide Diarrhea,Nausea and/ or Vomiting 11/28/2024 Piper Longum Anaphylaxis High 05/31/2023 White and black pepper Pseudoephedrine Base Other 12/02/2024 Nose ozuna Red Dye Itching 11/28/2024 Azithromycin Urticaria Medium 08/18/2019 Medications * Be aware that medications may not be up to date on this document. Alwaysverify current medications with the patient. triamcinolone acetonide (KENALOG) 0.1 % ointment 019 Active cetirizine (ZyrTEC) 10 MG tablet Take 1 (one) tablet by mouth once daily Active polyethylene glycol 3350 (Miralax) 17 GM/SCOOP powder Take 17 (seventeen) g by mouth once daily Active ondansetron, disintegrating , (Zofran ODT) 4 MG tablet Take 1 (one) tablet by mouth every 6 hours as needed for Nausea/Vomiting 025 Active pyridoxine (Vitamin B-6) 25 MG tablet Take 2 (two) tablets by mouth 4 times daily Active plus iron (Natatab) 29-1 MG tablet Take 1 (one) tablet by mouth once daily 30 tablet 5 025 Active albuterol HFA (ProAir HFA) 108 (90 Base) MCG/ACT inhaler Inhale 2 (two) puffs by mouth every 4 hours as needed 8.5 g 025 Active EPINEPHrine (Epipen) 0.3 MG/0.3ML auto-injector pen Inject 0.3 mL into muscle once as needed for Anaphylaxis 0.6 mL 1 025 Active Glucagon (Gvoke HypoPen 1-Pack) 0.5 MG/0.1ML SOAJ Inject 1 Each subcutaneously as needed 0.1 mL 025 Active Additional Information Patient not taking.Reason: Patient adjusted (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 to picker operator from pharmacy), Reported on 01/19/2025 budesonide-for moterol (Symbicort) 160-4.5 MCG/ACT inhaler Inhale 2 (two) puffs by mouth 2 times daily 10.2 g 3 025 Active Additional Information Patient not taking.Reason: Patient adjusted, Informant: Patient, Reported on 01/19/2025 glucagon (Glucagen) injection Inject 1 (one) mg into muscle as needed 1 Each 025 Active omeprazole (PriLOSEC) 20 MG capsule Take 1 (one) capsule by mouth daily before breakfast Active venlafaxine XR 24hr (Effexor XR) 75 MG capsule Take 1 (one) capsule by mouth daily with breakfast Active Basaglar KwikPen (Basaglar) pen Inject 16 units every AM and 16 units every PM. Space doses 12 hours apart. Increase dose as directed during . Max total daily dose = 50 units. 15 mL 5 025 Active Additional Information Patient taking differently: 14 Units, Inject 16 units every AM and 16 units every PM. Space doses 12 hours apart. Increase dose as directed during . Max total daily dose = 50 units. 14 Units AM and 14 Units PM, Reason: Provider adjusted, Reported on 01/19/2025 Insulin Pen Needle (TechLite Pen [place]) 32G X 4 MM MISCIndication s: complicated by pre-existing type 2 diabetes in first trimester ([facility]) Use 1 Each 3 times daily 100 Each 5 Active Blood Glucose Monitoring Suppl (OneTonChannel Verio Flex System) w/Device KITIndications : complicated by pre-existing type 2 diabetes in first trimester ([facility]) Use 1 kit as directed 1 kit Active blood glucose (OneTouch Verio) test stripIndicatio ns: complicated by pre-existing type 2 diabetes in first trimester ([facility]) Please supply strips to match meter best covered by insurance for testing 3 times per day 100 strip Active Lancets (ONETOUCH DELICA PLUS 33G EXTRA FINE LANCET)Indicat ions: complicated by pre-existing type 2 diabetes in first trimester ([facility]) Please supply lancets to match lancing device best covered by insurance for testing 3 times per day 100 Each Active acetaminophen (Tylenol) 500 MG tablet Take 2 (two) tablets by mouth every 8 hours as needed for Fever, Pain or Headache Maximum allowable Acetaminophen amount = 4 Grams (4000 mg) / 24 hours. Active lamoTRIgine (LaMICtal) 25 MG tablet Take 1 (one) tablet by mouth once daily for 14 days, THEN 2 (two) tablets once daily for 14 days. 60 tablet Active dextromethorph an polistirex ER (Delsym) liquid Take 10 mL by mouth every 12 hours as needed for Cough Active insulin aspart (NovoLOG) pen Inject 6 units, 0-15 minutes before breakfast, lunch, and dinner. Increase dose as directed during . Max total daily dose = 50 units. 15 mL 5 025 Active insulin aspart (NovoLOG) pen Inject 6 units, 0-15 minutes before lunch. Increase dose as directed during . Max total daily dose = 50 units. 15 mL 5 025 2024 Discontinued Active Problems Problem Noted Date Diagnosed Date [...] Encounters Date Type Department Care Team Description 01/19/2025 9:30 AM CDT Hospital Encounter [facility] MATERNAL/ EVALUATION UNIT [facility] [address] [place] [address] Anna Fry APRN-PACKAGING TECH 01/19/2025 9:30 AM CDT Hospital Encounter [facility] MATERNAL/ EVALUATION UNIT [address] [place] [address] Anna Fry APRN-PACKAGING TECH 01/19/2025 Travel 01/12/2025 8:30 AM CDT Hospital Encounter [facility] MATERNAL/ EVALUATION UNIT [facility] [place] [address] Sourav Jaimes MD Wendel, Michael, MD Discharge Disposition: Home or Self Care 01/12/2025 8:30 AM CDT Hospital Encounter [facility] MATERNAL/ EVALUATION UNIT [address] [place] [address] Sourav Jaimes MD Wendel, Michael, MD Discharge Disposition: Home or Self Care 01/12/2025 7:30 AM CDT - 01/12/2025 8:29 AM CDT Hospital Encounter [facility] MATERNAL/ EVALUATION UNIT [facility] [place] [address] Sourav Jaimes MD Discharge Disposition: Home or Self Care 12/30/2024 Travel 12/29/2024 8:12 AM CDT - 12/29/2024 11:59 PM CDT Hospital Encounter [facility] MATERNAL/ EVALUATION UNIT [address] [place] [address] Anna Alvarado MD Discharge Disposition: Home or Self Care 12/29/2024 8:12 AM CDT - 12/29/2024 11:59 PM CDT Hospital Encounter [facility] MATERNAL/ EVALUATION UNIT [address] [place] [address] Anna Alvarado MD Discharge Disposition: Home or Self Care 12/29/2024 Travel 12/22/2024 8:10 AM CDT - 12/22/2024 11:59 PM CDT Hospital Encounter [facility] MATERNAL/ EVALUATION UNIT [address] [place] [address] Hitesh Calderon MD Discharge Disposition: Home or Self Care 12/22/2024 8:10 AM CDT Hospital Encounter [facility] MATERNAL/ EVALUATION UNIT [address] [place] [address] Hitesh Calderon MD Discharge Disposition: Home or Self Care 12/22/2024 Travel 12/15/2024 7:32 AM CDT - 12/15/2024 11:59 PM CDT Hospital Encounter [facility] MATERNAL/ EVALUATION UNIT [address] [place] [address] Sourav Jaimes MD Discharge Disposition: Home or Self Care 12/15/2024 7:31 AM CDT Hospital Encounter [facility] MATERNAL/ EVALUATION UNIT [address] [place] [address] Sourav Jaimes MD Discharge Disposition: Home or Self Care 12/09/2024 Orders Only [facility] MATERNAL/ EVALUATION UNIT [address] [place] [address] Twyla Duggan, RD/LD complicated by pre-existing type 2 diabetes in first trimester (HCC) 12/08/2024 10:59 AM CDT - 12/08/2024 11:59 PM CDT Hospital Encounter [facility] MATERNAL/ EVALUATION UNIT [address] [place] [address] Sourav Jaimes MD Discharge Disposition: Home or Self Care 12/08/2024 10:59 AM CDT - 12/08/2024 11:59 PM CDT Hospital Encounter [facility] MATERNAL/ EVALUATION UNIT [address] [place] [address] Sourav Jaimes MD Discharge Disposition: Home or Self Care 12/05/2024 Telephone [facility] MATERNAL/ EVALUATION UNIT [address] [place] [address] Ck Bansal MD Follow-up 12/05/2024 Orders Only [facility] MATERNAL/ EVALUATION UNIT [address] [place] [address] Glenna Whiteside RN 12/03/2024 Results Follow-Up [facility] MATERNAL/ EVALUATION UNIT [address] [place] [address] Castillo Shah MD 12/03/2024 Orders Only [facility] OB [address] [id number] Castillo Shah MD 12/01/2024 10:00 AM CDT Hospital Encounter [facility] MATERNAL/ EVALUATION UNIT [address] [place], [place] [id number] Sourav Jaimes MD Discharge Disposition: Home or Self Care 12/01/2024 10:00 AM CDT Hospital Encounter [facility] MATERNAL[facility] EVALUATION UNIT [address] [place] [address] Sourav Jaimes MD Discharge Disposition: Home or Self Care 12/01/2024 10:00 AM CDT Hospital Encounter [facility]NAL[facility] EVALUATION UNIT [address] [place] [address] Sourav Jaimes MD Discharge Disposition: Home or Self Care 12/01/2024 Travel 11/28/2024 Orders Only [facility] MATERNAL/ EVALUATION UNIT [address] [place] [address] Garrett Ramirez PharmD 11/27/2024 Results Follow-Up [facility] MATERNAL/ EVALUATION UNIT [address] [place] [address] Ck Bansal MD 11/27/2024 Telephone [facility] MATERNAL/ EVALUATION UNIT [address] [place] [address] Ck Bansal MD Results 11/24/2024 8:14 AM CDT - 11/24/2024 11:59 PM CDT Hospital Encounter [facility] MATERNAL/ EVALUATION UNIT [address] [place] [address] Anna Alvarado MD Discharge Disposition: Home or Self Care 11/24/2024 8:12 AM CDT - 11/24/2024 8:13 AM CDT Hospital Encounter [facility] MATERNAL/ EVALUATION UNIT [address] [place] [address] Anna Alvarado MD Discharge Disposition: Home or Self Care 11/24/2024 8:11 AM CDT Hospital Encounter [facility] MATERNAL/ EVALUATION UNIT [address] [place] [address] Anna Alvarado MD Discharge Disposition: Home or Self Care 11/24/2024 8:09 AM CDT - 11/24/2024 8:10 AM CDT Hospital Encounter [facility] MATERNAL/ EVALUATION UNIT [address] [place] [address] Harpreet Alvares DO Discharge Disposition: Home or Self Care 11/24/2024 Travel 11/17/2024 Telephone [facility] MATERNAL/ EVALUATION UNIT [address] [place] [address] Glenna Snell, diesel dinkey engineer 11/14/2024 Telephone [facility] MATERNAL/ EVALUATION UNIT [address] [place] [address] Alma Temple, diesel dinkey engineer from Last 3 Months Immunizations Immunization [...] care, and heating? Not very hard 11/24/2024 [facility] of Occupat ional Health - Occupational Stress [...] things needed for daily living? No 11/24/2024 [place] Depression Scale Answer Date Recorded [place] Depression Scale Total 2 11/24/2024 The thought [...] any time in the past 12 m [facility], were you homeless or living in a [place] health care facility (including now)? 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 Gender Identity Not on file Sexual Orientation Not on file Last Filed Vital Signs Vital Sign Reading Time Taken Comments Blood Pressure 102/71 01/19/2025 9:37 AM CDT Pulse 106 01/19/2025 9:37 AM CDT Temperature 36.9 C (98.4 F) 12/26/2019 11:09 AM CDT Respiratory Rate 20 12/26/2019 11:50 AM CDT Oxygen Saturation 97% 12/26/2019 11:50 AM CDT Inhaled Oxygen Concentration 100% 12/26/2019 1 1:18 AM CDT Weight 76.8 kg (169 lb 6.4 oz) 01/19/2025 9:37 A M CDT Height 167.6 cm (5' 6) 12/08/2024 11:00 AM CDT Body Mass Index 27.34 12/08/2024 11:00 AM CDT Plan of Treatment Upcoming Encounters Date Type Department Care Team (Late st Contact Info) Description 01/26/2025 9:00 AM CDT Appointment [facility] MATERNAL/ EVALUATION UNIT [address] [place] [id number] 01/26/2025 9:00 AM CDT Appointment [facility] MATERNAL/ EVALUATION UNIT [address] [place] [address] [address] [place] [address] 02/09/2025 7:30 AM CDT Appointment [facility] MATERNAL/ EVALUATION UNIT [address] [place] [address] [address] [place] [address] 03/16/2025 1:00 PM CDT Appointment [facility] [address] [place] [address] Sourav Jaimes MD [address] [address] 03/24/2025 1:30 PM CDT Office Visit [facility] - Ophthalmology [address] [facility], [place] [phone] Pj Cheney, OD [address] [place] [address] Health Maintenance Due Date Last Done Comments MEDICARE AWV 12 MONTHS 2001 DTAP/TDAP/TD VACCINES (7 - Td or Tdap) 11/18/2022 11/18/2012, 12/24/2006, 08/04/2002, Additional history exists COVID-19 VACCINE ( season) 2024 04/03/2023, 06/24/2021, 09/22/2020 DIABETES RETINOPATHY SCREENING 11/25/2024 DIABETES-FOOT EXAM WITH MONOFILAMENT 11/25/2024 INFLUENZA VACCINE (#1) 2025 , 04/03/2023, 04/04/2021, Additional history exists OB-TDAP CURRENT 03/30/2025 11/18/2012 Respiratory Syncytial Virus [...] Completed 02/26/2018, 12/21/2017 HPV VACCINE Completed 03/11/2021, 09/17, 09/06/2020 PNEUMOCOCCAL VACCINE Completed 12/28/2021, 2001, 2001, Additional history exists DEPRESSION SCREENING Completed 11/24/2024 HEPATITIS C SCREENING Completed 11/24/2024 HIV SCREENING Completed 11/24/2024 Procedures Procedure Name Priority Date/Time Associated Diagnosis Comments URINALYSIS - POCT (IP) BEAKER INTERFACE Routine 01/19/2025 9:48 AM CDT GLUCOSE - POINT OF CARE Routine 01/20/20 9:43 AM CDT URINALYSIS - POCT (IP) BEAKER INTERFACE Routine 01/12/2025 10:02 AM CDT SONOGRAM - COMPLETE Routine 01/12/2025 9 :19 AM CDT URINALYSIS - POCT (IP) BEAKER INTERFACE Routine 12/29/2024 8:18 AM CDT URINALYSIS - POCT (IP) BEAKER INTERFACE Routine 12/22/2024 8:22 AM CDT URINALYSIS - POCT (IP) BEAKER INTERFACE Routine 12/15/2024 8:21 AM CDT URINALYSIS - POCT (IP) BEAKER INTERFACE Routine 12/08/2024 11:09 AM CDT CBC W/O DIFFERENTIAL STAT 12/01/2024 12:24 PM CDT Type 2 diabetes mellitus without complication, unspecified whether fdc insulin use (HCC) URINALYSIS REFLEX MICROSCOPIC REFLEX CULTURE STAT 12/01/2024 12:24 PM CDT Type 2 diabetes mellitus without complication, unspecified whether laborer marine terminal insulin use (HCC) COMPREHENSIVE METABOLIC PANEL STAT 12/01/2024 12:24 PM CDT Type 2 diabetes mellitus without complication, unspecified whether fdc insulin use (HCC) PROTEIN CREATININE RATIO URINE RANDOM PNL STAT 12/01/2024 12:24 PM CDT Type 2 diabetes mellitus without complication, unspecified whether fdc insulin use (HCC) CULTURE URINE STAT 12/01/2024 12:24 PM CDT Type 2 diabetes mellitus without complication, unspecified whether laborer marine terminal insulin use (HCC) PROTEIN URINE TIMED QUANTITATIVE Routine 12/01/2024 10:13 AM CDT Supervision of high risk , antepartum (HCC) URINALYSIS - POCT (IP) BEAKER INTERFACE Routine 12/01/2024 10:11 AM CDT ANEUPLOIDY SCREENING Routine 12/01/2024 PAP IG LB RFLX HPV APTIMA ASCU [...] GLUCOSE - POINT OF CARE Routine 11/25/19 10:29 AM CDT URINALYSIS - POCT (IP) BEAKER INTERFACE Routine 11/24/2024 9:21 AM CDT SONOGRAM - COMPLETE Routine 11/24/2024 8 :32 AM CDT from Last 3 Months Results * (ABNORMAL) URINALYSIS - POCT () BEAKER INTERFACE (01/19/2025 9:48 AM CDT) Only the most recent of8 resultswithin the time period is included. Color UA POCT Yellow Straw, Yellow, Dark Yellow, Light Yellow 01/19/2025 9:50 AM CDT [facility] Clarity UA POCT Clear Clear 9:50 AM CDT [facility] Specific [place] UA POCT 1.020 1.005 - 1.030 01/19/2025 9:50 AM CDT [facility] pH UA POCT 6.0 5.0 - 8.0 pH 01/19/2025 9:50 AM CDT [facility] Protein UA POCT Negative Negative 9:50 AM CDT [facility] Blood UA POCT Negative Negative 01/19/2025 9:50 AM CDT [facility] Leukocyte UA POCT Negative Negative 01/19/2025 9:50 AM CDT [facility] Nitrite UA POCT Negative Negative 9:50 AM CDT [facility] Glucose UA POCT 1+(A) Negative 9:50 AM CDT [facility] Ketone UA POCT Negative Negative 01/19/2025 9:50 AM CDT [facility] Bilirubin UA POCT Negative Negative 01/19/2025 9:50 AM CDT [facility] Urobilinogen UA POCT 0.2 0.1 - 1.0 EU/dL 01/19/2025 9:50 AM CDT [facility] Urine URINE / Unknown 01/19/2025 9 :48 AM CDT 01/19/2025 9:50 AM CDT us Anna Fry TOP ICER-PACKAGING TECH LAB - POINT OF CARE ORDERABLES Final Result [facility] [address] [place] [address] * (ABNORMAL) GLUCOSE - POINT OF CARE (01/19/2025 9:43 AM CDT) Only the most recent of2 resultswithin the time period is included. Glucose WB/POC 191(H) 70 - 99 mg/dL 01/19/2025 9:52 AM CDT [facility] Specimen Type Arterial/C apillary 01/19/2025 9:52 AM CDT [facility] Blood BLOOD SPECIMEN / Unknown 01/19/2025 9:43 AM CDT 01/19/2025 9:52 AM CDT Anna Fry APRN-PACKAGING TECH LAB - POINT OF CARE ORDERABLES Final Result Performing Organization Address City/State/[facility] Co de Phone Number [facility] [address] [place] [id number] * Sonogram - Complete (01/12/2025 9:19 AM CDT) Only the most recent of2 resultswithin the time period is included. Pathologist [facility] Linked Results Indication ======== anatomy evaluation Pre-existing type 2 diabetes mellitus, in History ====== Past surgical history Scoliosis surgery OB History 1. Para 0 Lab Tests Test Date Result NIPT 12/01/2024 Low risk, Female Maternal Assessment Physical Exam Height 168 cm, 5 ft 6 in. Weight 76 kg, 167 lb. Initial weight 77 kg, 170 lb. BMI 26.95 kg/m . Initial BMI 27.44 kg/m . Weight gain -1 kg, -3 lb Method ====== Transabdominal ultrasound. View: Suboptimal view: limited by activity ========= Rodrigues . Number of fetuses: 1 Dating ====== Date Details Gest. age JESSICA Stated JESSICA 16 w + 0 d 06/29/[birth year]25 U/S 01/12/2025 based upon AC, BPD, Femur, HC 16 w + 0 d 06/29/2025 Assigned dating based on ultrasound (CRL), selected on 11/24/2024 16 w + 0 d 06/29/2025 General Evaluation Cardiac activity present. FHR 141 bpm. Presentation: cephalic Placenta: Placental site: posterior Umbilical cord: Cord vessels: 3 vessel cord. Insertion site: normal insertion Amniotic fluid: Amount of AF: normal. MVP 3.8 cm Biometry BPD 32.5 mm 16w 1d 53% Hadlock HC 121.1 mm 16w 0d 37% Hadlock Cerebellum tr 15.0 mm 25% [place] AC 100.8 mm 16w 1d 55% Hadlock Femur 19.0 mm 15w 4d 31% Hadlock Humerus 18.3 mm 15w 2d 24% Kinsey HC / AC 1.20 16w 3d 46% Hadlock Weight Calculation: EFW 138 g 35% Hadlock EFW (lb,oz) 0 lb 5 oz EFW by Hadlock ([id number]) Head / Face / Neck Biometry: Nasal bone 4.6 mm appropriate Growth Overview Exam date GA BPD (mm) HC (mm) AC (mm) FL (mm) HL (mm) EFW (g) 01/12/2025 16w 0d 32.5 53% 121.1 37% 100.8 55% 19 31% 18.3 24% 138 35% Anatomy Face Profile: nasal bone present. The following structures appear normal: Head / Neck Cranium. Lateral ventricles. Choroid plexus. Midline falx. Cerebellum. Heart / Thorax Diaphragm. Abdomen Cord insertion. Stomach. Kidneys. Bladder. Extremities / Skeleton Arms. Legs. The following structures could not be adequately visualized: Heart / Thorax 4-chamber view. Spine Cervical spine. Thoracic spine. Lumbar spine. Sacral spine. Extremities / Skeleton Hands. Feet. Maternal Structures Right Ovary Normal Left Ovary Normal Impression ========= Single live intrauterine at 16w0d The size is AGA The amniotic fluid volume is normal Incomplete anatomic survey No major malformations were seen within the limitations of ultrasound Comment ======== ultrasound alone cannot detect all structural, genetic, or functional , placental, or maternal abnormalities Follow-up ======== Follow up ultrasound in 4 weeks for anatomic survey, size and cervical length screening Coding ====== Diagnoses O24.112: Pre-existing type 2 diabetes mellitus, in Z36.3: Encounter for screening for malformations Procedures [id number]: US Preg Uterus >14 weeks [facility] PACS Anatomical Region Laterality Modality Other 01/12/2025 9:19 AM CDT Sourav Jaimes MD [facility] ORDERABLES Edited Result - Final * (ABNORMAL) URINALYSIS REFLEX MICROSCOPIC REFLEX CULTURE (12/01/2024 12:24 PM CDT) Color UA Yellow Yellow, Straw 12/01/2024 1:34 PM CDT [facility] Clarity UA Clear Clear 12/01/2024 1:34 PM CDT [facility] Glucose UA Normal Normal 12/01/2024 1:34 PM CDT [facility] Bilirubin UA Negative Negative 12/01/2024 1:34 PM CDT [facility] Ketone UA Negative Negative 12/01/2024 1:34 PM CDT [facility] Specific [place] UA 1.024 1.005 - 1.030 12/01/2024 1:34 PM CDT [facility] Blood UA Negative Negative 12/01/2024 1:34 PM CDT [facility] pH UA 6.5 5.0 - 8.0 12/01/2024 1:34 PM CDT [facility] Protein UA Negative Negative 12/01/2024 1:34 PM CDT [facility] Urobilinogen UA Normal Normal mg/dL 12/01/2024 1:34 PM CDT [facility] Nitrite UA Negative Negative 12/01/2024 1:34 PM CDT [facility] Leukocyte Esterase UA 25 GOPAL/uL(A) Negative 12/01/2024 1:34 PM CDT [facility] RBC UA 3-5 0 - 5 # /hpf 12/01/2024 1:34 PM CDT [facility] WBC UA 0-5 0 - 5 # /hpf 12/01/2024 1:34 PM CDT [facility] Bacteria UA Trace(A) None Seen 12/01/2024 1:34 PM CDT [facility] Squamous Epithelial Cells 3-5 0 - 5 /hpf 12/01/2024 1:34 PM CDT [facility] Mucus UA 2+ /LPF 12/01/2024 1:34 PM CDT [facility] Hyaline Casts 0-2 0 - 2 /LPF 12/01/2024 1:34 PM CDT [facility] Reflex Status Culture to follow 12/01/2024 1:34 PM CDT [facility] Urine URINE SPECIMEN OBTAINED BY CLEAN CATCH PROCEDURE / Unknown Collection / Unknown 12/01/2024 12:24 PM CDT 12/01/2024 1:24 PM CDT Narrative [facility] - 12/01/2024 1:34 PM CDT Sourav Jaimes MD LAB - URINALYSIS ORDERABLES Fin al Result [facility] [address] [place] [address] * (ABNORMAL) CULTURE URINE (12/01/2024 12:24 PM CDT) Only the most recent of2 resultswithin the time period is included. Culture Urine 10,000-50,000 CFU/mL Streptococcus agalactiae (Group B)(A) 12/03/2024 4:20 AM CDT [facility] Culture Urine <10,000 CFU/mL urogenital khloe 12/03/2024 4:20 AM CDT [facility] Urine URINE SPECIMEN OBTAINED BY CLEAN CATCH PROCEDURE / Unknown Collection / Unknown 12/01/2024 12:24 PM CDT 12/01/2024 1:24 PM CDT Narrative [facility] - 12/03/2024 4:20 AM CDT Susceptibility testing of penicillin, other beta-lactam antibiotics, and vancomycin is not necessary for beta-hemolytic streptococci groups A,B,C and G because resistant strains have not been recognized. us Sourav Jaimes MD LAB - MICROBIOLOGY ORDERABLES F inal Result [facility] [address] [place] [address], [facility] [phone] * (ABNORMAL) CBC W/O DIFFERENTIAL (12/01/2024 12:24 PM CDT) [facility] WBC 9.4 4.0 - 10.7 x10E9/L 12/01/2024 2:46 PM CDT [facility] RBC Count 4.09 3.90 - 5.20 x10E12/L 12/01/2024 2:46 PM CDT [facility] Hemoglobin 11.7(L) 11.9 - 15.8 g/dL 12/01/2024 2:46 PM CDT [facility] Hematocrit 36.5 34.8 - 46.1 % 12/01/2024 2:46 PM CDT [facility] MCV 89.2 80.0 - 98.0 fL 12/01/2024 2:46 PM CDT [facility] MCH 28.6 26.7 - 33.6 pg 12/01/2024 2:46 PM CDT [facility] MCHC 32.1 31.7 - 36.3 g/dL 12/01/2024 2:46 PM CDT [facility] RDW-CV 12.8 11.3 - 14.8 % 12/01/2024 2:46 PM CDT [facility] Platelet Count 283 150 - 420 x10E9/L 12/01/2024 2:46 PM CDT [facility] MPV 10.0 7.8 - 11.4 fL 12/01/2024 2:46 PM CDT [facility] Blood BLOOD SPECIMEN / Unknown Venipuncture / Unknown 12/01/2024 12:24 PM CDT 12/01/2024 1:58 PM CDT Sourav Jaimes MD LAB - HEMATOLOGY ORDERABLES Fin al Result [facility] [address] [place] [address] * (ABNORMAL) COMPREHENSIVE METABOLIC PANEL (12/01/2024 12:24 PM CDT) [facility] Glucose 88 70 - 99 mg/dL 12/01/2024 2:30 PM CDT [facility] Sodium 137 136 - 145 mmol/L 12/01/2024 2:30 PM CDT [facility] Potassium 4.4 3.5 - 5.1 mmol/L 12/01/2024 2:30 PM CDT [facility] Chloride 109(H) 98 - 107 mmol/L 12/01/2024 2:30 PM CDT [facility] CO2 19(L) 22 - 29 mmol/L 12/01/2024 2:30 PM CDT [facility] Calcium 9.4 8.4 - 10.4 mg/dL 12/01/2024 2:30 PM T [facility] Anion Gap 9 6 - 16 mmol/L 12/01/2024 2:30 PM CDT [facility] BUN 7 5.3 - 18.7 mg/dL 12/01/2024 2:30 PM CDT [facility] Creatinine 0.57 0.57 - 1.11 mg/dL 12/01/2024 2:30 PM T [facility] Alkaline Phosphatase 53 40 - 150 U/L 12/01/2024 2:30 PM CDT [facility] ALT 10 6 - 57 U/L 12/01/2024 2:30 PM CDT [facility] AST 28 10 - 48 U/L 12/01/2024 2:30 PM T [facility] Protein Total 6.7 6.4 - 8.3 gm/dL 12/01/2024 2:30 PM CDT [facility] Albumin 4.1 3.1 - 4.5 gm/dL 12/01/2024 2:30 PM T [facility] Bilirubin Total 0.3 0.2 - 1.2 mg/dL 12/01/2024 2:30 PM T [facility] eGFR by CKD-EPI >90 >=90 mL/min/1.7 3 m2 12/01/2024 2:30 PM T [facility] Blood BLOOD SPECIMEN / Unknown Venipuncture / Unknown 12/01/2024 12:24 PM CDT 12/01/2024 2:18 PM CDT us Sourav Jaimes MD LAB - CHEMISTRY ORDERABLES Yanet l Result Performing Organization Address [facility] Co de Phone Number [facility] [address] [place] [address] * PROTEIN CREATININE RATIO URINE RANDOM PNL (12/01/2024 12:24 PM CDT) Protein Urine 10.4 <11.9 mg/dL 12/01/2024 1:51 PM CDT [facility] Creatinine Urine 137.02 mg/dL 12/01/2024 1:51 PM CDT [facility] Protein/Creatin ine Ratio Urine 0.08 12/01/2024 1:51 PM CDT [facility] Urine URINE SPECIMEN OBTAINED BY CLEAN CATCH PROCEDURE / Unknown Collection / Unknown 12/01/2024 12:24 PM CDT 12/01/2024 1:24 PM CDT Result [facility] Sourav Jaimes MD LAB - URINE CHEMISTRY ORDERABLE S Final Result Performing Organization Address [facility] de Phone Number [facility] [address] [place] [address] * PROTEIN URINE TIMED QUANTITATIVE (12/01/2024 10:13 AM CDT) Volume 24 Hour Urine 2,000 mL 12/01/2024 11:56 AM CDT [facility] Collection Time Hours 24 hrs 12/01/2024 11:56 AM CDT [facility] Protein 24 Hour Urine 12/01/2024 11:56 AM CDT [facility] Comment:Unable to calculate due to limited levels of measurable protein. Protein Urine <6.8 <11.9 mg/dL 12/01/2024 11:56 AM CDT [facility] Urine TIMED URINE SPECIMEN / Unknown Timed Urine Volume Measurement / Unknown 12/01/2024 10:13 AM CDT 12/01/2024 11:40 AM CDT Sourav Jaimes MD LAB - URINE CHEMISTRY ORDERABLE S Final Result Performing Organization Address [facility] Co de Phone Number [facility] [address] [place] [address] * ANEUPLOIDY SCREENING (12/01/2024) Trisomy 21 Low Risk Trisomy 18 Low Risk Trisomy 13 Low Risk Monosomy X Low Risk Triploidy/Zulema shing Twin NIPT Low Risk Blood BLOOD SPECIMEN / Unknown 12/01/2024 Narrative Elise Aldana, NATHAN - 12/08/2024 10:56 AM CDT LOW RISK Predicted Sex: female Fraction: 7.0% Panorama - Dara Screen Hard copy results available in Media. us Sourav Jaimes MD LAB - CHEMISTRY ORDERABLES Yanet l Result * TRICHOMONAS VAGINALIS IRA (11/24/2024 11:20 AM CDT) Trichomonas by IRA NEGATIVE NEGATIVE 11/25/2024 7:30 AM CDT [facility] Microbiology ENTIRE ENDOCERVIX / Unknown Collection / Unknown 11/24/2024 11:20 AM CDT 11/24/2024 12:00 PM CDT Narrative [facility] - 11/25/2024 7:30 AM CDT This test performed by Qualitative real-time Polymerase Chain Reaction (PCR). Anna Alvarado MD LAB - MICROBIOL OGY ORDERABLES Final Result [facility] [address] [phone] * CHLAMYDIA AND N. GONORRHOEAE IRA (11/24/2024 11:20 AM CDT) Chlamydia by IRA NEGATIVE NEGATIVE 11/25/2024 7:28 AM CDT [facility]CRO[facility] Neisseria gonorrhoeae IRA NEGATIVE NEGATIVE 11/25/2024 7:28 AM CDT [facility] MICROBIOLOG[facility] Microbiology ENTIRE ENDOCERVIX / Unknown Collection / Unknown 11/24/2024 11:20 AM CDT 11/24/2024 12:00 PM CDT Narrative [facility]CRO[facility] - 11/25/2024 7:28 AM CDT This test performed by Qualitative real-time Polymerase Chain Reaction (PCR). us Anna Alvarado MD LAB - MICROBIOL OGY ORDERABLES Final Result [facility]CRO[facility] [address] [place], [place] [address], [facility] [phone] * PAP IG LB RFLX HPV APTIMA ASCU (11/24/2024 11:20 AM CDT) Diagnosis Comment 11/27/2024 4:11 PM CDT [facility] ([facility]) Comment:NEGATIVE FOR INTRAEP ITHELIAL LESION OR MALIGNANCY. Specimen Adequacy Comment 025 4:11 PM CDT [facility] ([facility]) Comment: Satisfactory for evaluation. Endocervical and/or squamous metaplastic cells (endocervical component) are present. Performed by Comment 11/27/2024 4:11 PM CDT [facility] ([facility]) Comment:Katya Ramsay, Work Order Clerk (ASCP) Comment . 11/27/2024 4:11 PM CDT [facility] ([facility]) Note Comment 11/27/2024 4:11 PM CDT [facility] ([facility]) Comment: The Pap smear is a screening test designed to aid in the detection of premalignant and malignant conditions of the uterine cervix. It is not a diagnostic procedure and should not be used as the sole means of detecting cervical cancer. Both false-positive and false-negative reports do occur. IGLBP CPT Code Automation Comment 11/27/2024 4:11 PM CDT [facility] ([facility]) Comment: This liquid based ThinPrep(R) pap test was screened with the use of an image guided system. Note Comment 11/27/2024 4:11 PM CDT [facility] ([facility]) Comment: The HPV DNA reflex criteria were not met with this specimen result therefore, no HPV testing was performed. Pathology/Cytolo gy PART OF UTERINE CERVIX / Unknown Collection / Unknown 11/24/2024 11:20 AM CDT 11/24/2024 12:00 PM CDT Narrative [facility] ([facility]) - 11/27/2024 4:11 PM CDT Performed at: 01 - [facility] [address] [facility], [place], [place] [id number] Account Engineer: Eliceo Miranda MD, Phone: [phone] Performed at: 02 - [address] [id number] Account Engineer: Ana Weems MD, Phone: [phone] Specimen Comment: No. of containers..01 ThinPrep Vial us Anna Alvarado MD LAB - PATHOLOGY /CYTOLOGY ORDERABLES Final Result [facility] ([facility]) [address] [place] [address] * URINE DRUG SCREEN IMMUNOASSAY (11/24/2024 11:20 AM CDT) Pathologist [facility] Amphetamines Screen Urine Not detected Not detected 11/24/2024 12:47 PM CDT [facility] Barbiturates Screen Urine Not detected Not detected 11/24/2024 12:47 PM CDT [facility] Benzodiazepines Screen Urine Not detected Not detected 11/24/2024 12:47 PM CDT [facility] Cannabinoids Screen Urine Not detected Not detected 11/24/2024 12:47 PM CDT [facility] Cocaine Screen Urine Not detected Not detected 11/24/2024 12:47 PM CDT [facility] Fentanyl Urine Not detected Not detected 11/24/2024 12:47 PM CDT [facility] Methadone Screen Urine Not detected Not detected 11/24/2024 12:47 PM CDT [facility] Opiate Screen Urine Not detected Not detected 11/24/2024 12:47 PM CDT [facility] Phencyclidine Screen Urine Not detected Not detected 11/24/2024 12:47 PM CDT [facility] Urine URINE / Unknown Collection / Unknown 11/24/2024 11:20 AM CDT 11/24/2024 12:00 PM CDT Narrative [facility] - 11/24/2024 12:47 PM [...] - URINE MARTÍN ALICIA ORDERABLES Final Result [facility] [address] [place] [address] * HEMOGLOBINOPATHY FRACTIONATION CASCADE (11/24/2024 11:19 AM CDT) Hemoglobin F 0.0 0.0 - 2.0 % 11/26/2024 3:10 PM CDT [facility] ([facility]) Hemoglobin A 97.2 96.4 - 98.8 % 11/26/2024 3:10 PM CDT [facility] ([facility]) Hemoglobin A2 2.8 1.8 - 3.2 % 11/26/2024 3:10 PM CDT [facility] ([facility]) Hemoglobin S 0.0 0.0 % 11/26/2024 3:10 PM CDT [facility] ([facility]) Interpretation Comment 11/26/2024 3:10 PM CDT [facility] ([facility]) Comment: Normal hemoglobin present; no hemoglobin variant or beta thalassemia identified. Note: Alpha thalassemia may not be detected by the Hgb Fractionation [place] panel. If alpha thalassemia is suspected, [facility] offers Alpha-Thalassemia DNA Analysis (#[id number]). Blood BLOOD SPECIMEN / Unknown Venipuncture / Unknown 11/24/2024 11:19 AM CDT 11/24/2024 11:[address] [facility] ([facility]) - 11/26/2024 3:10 PM CDT Performed at: [address] [place] [id number] Account Engineer: Lev Velasquez PhD, Phone: [phone] us Anna Alvarado MD LAB - CHEMISTRY ORDERABLES Final Result [facility] ([facility]) [address] [place] [address] * CYSTIC FIBROSIS (CF) 97 VARIANTS (11/24/2024 11:19 AM CDT) Ethnicity Comment 12/03/2024 3:10 PM CDT [facility] ([facility]) Comment:Not Provided Specimen Type Comment 12/03/2024 3:10 PM CDT [facility] ([facility]) Comment:Whole Blood Indication Comment 12/03/2024 3:10 PM CDT [facility] ([facility]) Comment:Carrier Test / Scree dani Result Comment 12/03/2024 3:10 PM CDT [facility] ([facility]) Comment:NEGATIVE Interpretation Comment 12/03/2024 3:10 PM CDT [facility] ([facility]) Comment: Negative Results Disorders (Gene) Result Interpretation Cystic fibrosis NEGATIVE This result reduces, CFTR NM_000492.4 but does not eliminate, the risk to be a carrier. Risk: At reduced risk for an affected . For ethnic-specific risk revisions see Information Table. Recommendations Comment 3:10 PM CDT [facility] ([facility]) Comment: If the above result is positive, genetic counseling is recommended to discuss the potential clinical and/or reproductive implications, as well as recommendations for testing family members and, when applicable, this individual's partner. Genetic counseling services are available. To access [email or web address] please visit [email or web address] or call [phone] ([phone]). Additional Clinical Info Comment 12/03/2024 3:10 PM CDT [facility] ([facility]) Comment: Cystic fibrosis (CF) is [...] affected individuals, lung transplantation may be indicated. (PMID:[id number]). Comments Comment 12/03/2024 3:10 PM [facility] ([facility]) Comment: This interpretation is based on the clinical information provided and the current understanding of the molecular genetics of the disorder(s) tested. Information about the disorder(s) tested is available at [email or web address]. Methods and Limitations Comment 12/03/2024 3:10 PM [facility] ([facility]) Comment: Next-generation Sequencing (NGS): Genomic regions of interest in the CFTR gene are selected using the 99tests(OnGreen hybridization capture method and sequenced via the [employer] NGS platform. Sequencing reads are aligned to the human genome reference GRCh37/hg19 build. Regions of interest include genomic regions encompassing targeted variants. Analytical sensitivity is estimated to be >99% for single nucleotide variants and small insertions/deletions. Variant detection is performed by [employer] and in-house algorithms. Confirmatory testing is done by [employer] sequencing. Variants are specified using the numbering and nomenclature recommended by the Human Genome Variation Society (HGVS, http://www.hgvs.org/). Variant classification and confirmation are consistent with ACMG standards and guidelines (Christopher, PMID:[id number]; Elton, PMID:00271343). Analysis is restricted to 97 targeted CF variants, listed below. c.[id number], c.178G>T (p.Glu60*), c.223C>T (p.Arg75*), c.254G>A (p.Bdu49Cvw), c.262_263delTT (p.Waa31Ynidn*22), c.273+1G>A, c.273+3A>C, c.274-1G>A, c.274G>T (p.Glu92*), c.313delA (p.Fyy637Vbfav*2), c.325_327delinsG (p.Plh938Aajpw*4), c.349C>T (p.Bhb656Njr), c.350G>A (p.Ryl830Mfs), c.366T>A (p.Gjd185*), c.442delA (p.Amv482Gflwg*5), c.489+1G>T, c.531delT (p.Gvr294Oysla*12), c.532G>A (p.Ylx845Eoo), c.579+1G>T, c.579+5G>A, c.580-1G>T, c.617T>G (p.Ovf038Wza), c.803delA (p.Jne871Fmjnj*17), c.805_806delAT (p.Wiz481Myiza*4), c.935_937delTCT (p.Dqv835zwv), c.948delT (p.Ueb486Jbygf*12), c.988G>T (p.Fkq552*), c.1000C>T (p.Utc397Edz), c.1013C>T (p.Uue050Sfg), c.1040G>A (p.Nmx062For), c.1040G>C (p.Qpt136Xzf), c.1055G>A (p.Igd213Poc), c.[1075C>A;1079C>A' (p.[Zuc452Zws;Sdy687Qqg'), c.1155_1156dupTA (p.Fpi809Zknvt*3), c.1364C>A (p.Ulp225Wwv), c.1438G>T (p.Vnk108Akh), c.1477C>T (p.Ncn802*), c.1519_1521delATC (p.Bpw238hgc), c.1521_1523delCTT (p.Vji377veo), c.1545_1546delTA (p.Gui613*), c.1558G>T (p.Qqr823Dij), c.1572C>A (p.Yfg308*), c.1585-1G>A, c.1624G>T (p.Ohn939*), c.1646G>A (p.Vkg477Zmp), c.1647T>G (p.Vaa933Njj), c.1652G>A (p.Vjq970Trp), c.1654C>T (p.Uyt500*), c.1657C>T (p.Ffs432*), c.1675G>A (p.Sgf267Zag), c.1679G>C (p.Vqm391Xmt), c.1680-1G>A, c.1721C>A (p.Fsz052Chp), c.1766+1G>A, c.1766+5G>T, c.1820_1903del84 (p.Kni919_Qjh015gut), c.1911delG (p.Fjk157Qjzzb*26), c.1923_1931delinsA (p.Qpm999Bunpn*5), c.1973_1984delinsAGAAA (p.Bcy592Ywkio*4), c.1975delA (p.Llb796Oozlh*4), c.2011delT (p.Wtp507*), c.2051_2052delinsG (p.Zui986Xvyaz*38), c.2052delA (p.Zoe863Cquzp*38), c.2052dupA (p.Ofu480Odfop*4), c.2125C>T (p.Ojw472*), c.2128A>T (p.Aez753*), c.2175dupA (p.Bwx002Bmxxj*4), c.2290C>T (p.Rdg144*), c.2657+5G>A, c.2668C>T (p.Dck172*), c.2737_2738insG (p.Nhv728*), c.2988G>A (p.Ipc413=), c.2988+1G>A, c.3039delC (p.Szm5394Ialzu*9), c.3067_3072delATAGTG (p.Bsh3759_Mqa1899dxr), c.3196C>T (p.Rst3466Efx), c.3266G>A (p.Doj2075*), c.3276C>A (p.Xpc4178*), c.3276C>G (p.Irg4070*), c.3302T>A (p.Lel4321Xcu), c.3454G>C (p.Tyy9612Mnn), c.3472C>T (p.Qxv2051*), c.3484C>T (p.Llx9107*), c.3528delC (p.Krr0637Ypxvr*15), c.3536_3539delCCAA (p.Wmp4518Gqenf*12), c.3587C>G (p.Pwv3693*), c.3611G>A (p.Kdd2881*), c.3659delC (p.Cvm2579Kohhc*8), c.3712C>T (p.Qzo3717*), c.3718-2477C>T, c.3744delA (p.Evx7867Wakxe*9), c.3752G>A (p.Sbw8153Mlr), c.3764C>A (p.Ngv6275*), c.3773dupT (p.Qci2568Ysbin*7), c.3846G>A (p.Jvk2116*), c.3889dupT (p.Qnp1718Moysw*5), c.3909C>G (p.Frd4044Dzx) Limitations: Technologies used do not detect germline mosaicism and do not rule out the presence of large chromosomal aberrations including rearrangements and gene fusions, or variants in regions or genes not included in this test, or possible inter/intragenic interactions between variants, or repeat expansions. Variant classification and/or interpretation may car changer time if more information becomes available. False positive or false negative results may occur for reasons that include: rare genetic variants, sex chromosome abnormalities, pseudogene interference, blood transfusions, bone marrow transplantation, somatic or tissue-specific mosaicism, mislabeled samples, or erroneous representation of family relationships. This test was developed and its performance characteristics determined by [employer]. It has not been cleared or approved by the Food and Drug Administration. Information Table Comment 025 3:10 PM CDT [facility] ([facility]) Comment: Cystic fibrosis, 97 variants, risk reductions for individuals with no family history Population Detection rate Pre-test Post-senior test analyst carrier risk risk with negative result Ashkenazi 97% 1 in 24 1 in 767 Jew 55% 1 in 94 1 in 208 Maldivian Black 81% 1 in 61 1 in 316 78% 1 in 58 1 in 260 White 93% 1 in 25 1 in 343 Mixed or For counseling other ethnic purposes, background consider using the ethnic background with the most conservative risk estimates. References Comment 12/03/2024 3:10 PM CDT [facility] ([facility]) Comment: Lynne JL, Kofi C, Tim GR et al. CFTR variant testing: a technical standard of the [place] [employer] (ACMG). Rachel Med 22, 0222 (2020). PMID: [id number] London T, Ruben SG, Lloyd BA, et al. Cystic Fibrosis and Congenital Absence of the Vas Deferens. 2000 [Updated 2016Jul 20'. In: Cristopher MP, Kehinde HH, Aubrey RA, et al., editors. Gordon(R) [Internet'. PMID: [id number] Director Review Comment 3:10 PM CDT [facility] ([facility]) Comment: Component Type Performed At [employer] [facility] Lonnie Edwards, component, [facility] hawk COLLADO, PhD processing [facility] [place], [address] Technical Laboratory ghada Calhoun, [facility] , PhD analysis [facility] [place] [address] Professional [id number], Lonnie Edwards, component Laboratory , PhD [facility] Vivian, [address] [place], [address] Electronically released by Manpreet Melchor, PhD, [facility] Blood BLOOD SPECIMEN / Unknown Venipuncture / Unknown 11/24/2024 11:19 AM CDT 11/24/2024 11:57 AM CDT Narrative [facility] ([facility]) - 12/03/2024 3:10 PM CDT Performed at: [address] [place] [address] [address], [facility] [place] [id number] Account Engineer: Lonnie Edwards [facility], Phone: [phone] us Anna Alvarado MD LAB - CHEMISTRY ORDERABLES Final Result [facility] ([facility]) [address] [place] [address] * SYPHILIS ANTIBODY CASCADING REFLEX (11/24/2024 11:19 AM CDT) Pathologist [facility] Treponema pallidum Antibody Non Reactive Non Reactive 11/24/2024 1:07 PM CDT [facility] Comment: No Laboratory evidence of syphilis infection. Note: Circulating antibodies may be low or undetectable in early infection. If recent exposure is suspected, re-draw sample in 2-4 weeks and repeat testing. Blood BLOOD SPECIMEN / Unknown Venipuncture / Unknown 11/24/2024 11:19 AM CDT 11/24/2024 11:58 AM CDT us Anna Alvarado MD LAB - SEROLOGY ORDERABLES Final Result Performing Organization Address City/[facility]/ZIP Co de Phone Number [facility] [address] [place] [address] * SPINAL MUSCULAR ATROPHY CARRIER (11/24/2024 11:19 AM CDT) Pathologist [facility] Ethnicity Comment 11/28/2024 11:11 AM CDT [facility] ([facility]) Comment:Not Provided Specimen Type Comment 11/28/2024 11:11 AM CDT [facility] ([facility]) Comment:Whole Blood Indication Comment 11/28/2024 11:11 AM CDT [facility] ([facility]) Comment:Carrier Test / Scree dani Result Comment 11/28/2024 11:11 AM CDT [facility] ([facility]) Comment:NEGATIVE Interpretation Comment 11/28/2024 11:11 AM CDT [facility] ([facility]) Comment: Negative Results Disorders (Gene) Result Interpretation Spinal muscular NEGATIVE : 2 This result reduces, atrophy SMN1 copies of but does not NM_000344.4 SMN1; eliminate, the risk c.*3+80T>G to be a carrier. risk variant Risk: NOT at an not present. increased risk for an affected . Recommendations Comment 11:11 AM [facility] [employer] ([facility]) Comment: If the above result is positive, genetic counseling is recommended to discuss the potential clinical and/or reproductive implications, as well as recommendations for testing family members and, when applicable, this individual's partner. Genetic counseling services are available. To access [employer] [facility] please visit [email or web address] or call [phone] ([phone]). Additional Clinical Info Comment 11/28/2024 11:11 AM [facility] [employer] ([facility]) Comment: Spinal muscular atrophy (SMA) [...] joint contractures, polyhydramnios, and decreased movement. (Tye, PMID:[id number]). Treatment is supportive. Targeted therapies may be available for some individuals. Approximately 94% of affected individuals have 0 copies of the SMN1 gene; in these individuals, an increase in the number of copies of the SMN2 gene correlates with reduced disease severity (Charlie Fontaine, PMID:[id number]). Individuals with one copy of the SMN1 gene are predicted to be carriers of SMA; those with two or more copies have a reduced carrier risk. For individuals with two copies of the SMN1 gene, the presence or absence of the variant c.*3+80T>G correlates with an increased or decreased risk, respectively, of being a silent carrier (2+0). Comments Comment 11/28/2024 11:11 AM [employer] ([facility]) Comment: This interpretation is based on the clinical information provided and the current understanding of the molecular genetics of the disorder(s) tested. Information about the disorder(s) tested is available at https://[employer] Methods and Limitations Comment 11/28/2024 11:11 AM [employer] ([facility]) Comment: Spinal muscular atrophy: The [...] repeat expansions. Variant classification and/or interpretation may car changer time if more information becomes available. False positive or false negative results may occur for reasons that include: rare genetic variants, sex chromosome abnormalities, pseudogene interference, blood transfusions, bone marrow transplantation, somatic or tissue-specific mosaicism, mislabeled samples, or erroneous representation of family relationships. This test was developed and its performance characteristics determined by [employer]. It has not been cleared or approved by the Food and Drug Administration. [employer] is a subsidiary of [employer], using the brand Bon[employer]. Information Table Comment 11:11 AM [employer] ([facility]) Comment: Spinal muscular atrophy risk [...] 1 in i 67 risk 918 5400 Jew 93.6% 1 in High 1 in 1 in 59 risk 907 5600 Black 90.3% 1 in 1 in 34 1 in 1 in 72 375 4200 92.6% 1 in 1 in 1 in 1 in 68 293 843 7437 White 95.0% 1 in 1 in 29 1 in 1 in 47 921 5600 Mixed For or counse other ling ethnic purpos backgrou es, nd consid er using the ethnic backgr ound with the most conser vative risk estima danay. includes carriers who are silent carriers (2+0) and carriers with a pathogen ic variant not detected in this assay Mitchell. PMID [id number] ; Elliott. PMID [id number] ; Dwayne . PMID [id number] References Comment 11/28/2024 11:11 AM CDT [facility] ([facility]) Comment: Lynne JL, Kofi C, Tino A et al. Addendum: Technical standards and guidelines for spinal muscular atrophy testing. Rachel Med 23, 4477 (2020). [Addendum to PMID: [id number]' Prior TW, Bruno ME, Carlos E. Spinal Muscular Atrophy. 1999Aug 11 (Updated 2019Jun 16). In: Cristopher MP, Kehinde HH, Aubrey RA, et al., editors. Gordon(R) [Internet'. PMID: [id number] Director Review Comment 11:11 AM CDT [facility] ([facility]) Comment: Component Type Performed At Soft Iron Inspector Technical Pixelated Jeannine Middleton, PhD, Social Pulse, FAC processing [facility] [employer] [place], [address] Technical [employer] Sherpas Jeannine Middleton, PhD, Social Pulse, FAC analysis [facility] [employer] [facility], [place], [address] Professional Pixelated Jeannine Middleton, PhD, [employer], [address], [address] Electronically released by Michele Mehta, PhD, [facility] Blood BLOOD SPECIMEN / Unknown Venipuncture / Unknown 11/24/2024 11:19 AM CDT 11/24/2024 11:57 AM CDT Narrative [facility] ([facility]) - 11/28/2024 11:11 AM CDT Performed at: - [facility] [employer] [place], [place] [id number] Account Engineer: Jeannine Middleton PhD, Phone: [phone] Anna Alvarado MD LAB - CHEMISTRY ORDERABLES Final Result Performing Organization Address City/[facility]/ZIP Co de Phone Number [facility] ([facility]) [address] [place] [address] * HIV-1 HIV-2 ANTIBODY + HIV P24 AG PANEL (11/24/2024 11:19 AM CDT) [facility] HIV1/2 Ab + P24 Ag Non Reactive Non Reactive 11/24/2024 1:07 PM CDT [facility] Blood BLOOD SPECIMEN / Unknown Venipuncture / Unknown 11/24/2024 11:19 AM CDT 11/24/2024 11:58 AM CDT Narrative [facility] - 11/24/2024 1:07 PM CDT No Laboratory evidence of HIV infection. Anna Alvarado MD LAB - CHEMISTRY ORDERABLES Final Result Performing Organization Address [facility] Co de Phone Number [facility] [address] [place] [address] * RUBELLA ANTIBODY IGG (11/24/2024 11:19 AM CDT) [facility] Rubella Antibody 1.17 Immune >0.99 index 11/25/2024 10:10 AM CDT [facility] ([facility]) Comment: Non-immune <0.90 Equivocal 0.90 - 0.99 Immune >0.99 Blood BLOOD SPECIMEN / Unknown Venipuncture / Unknown 11/24/2024 11:19 AM CDT 11/24/2024 11:58 AM CDT Narrative [facility] ([facility]) - 11/25/2024 10:10 AM CDT Performed at: 01 - [facility] [address] [place] [id number] Account Engineer: Lev Velasquez PhD, Phone: [phone] Anna Alvarado MD LAB - SEROLOGY ORDERABLES Final Result [facility] ([facility]) [address] [address] * (ABNORMAL) HEMOGLOBIN A1C (11/24/2024 11:19 AM CDT) Hemoglobin A1c 6.5(H) <5.7 % 11/24/2024 12:59 PM CDT [facility] Estimated Average Glucose 140 mg/dL 11/24/2024 12:59 PM CDT [facility] Blood BLOOD SPECIMEN / Unknown Venipuncture / Unknown 11/24/2024 11:19 AM CDT 11/24/2024 11:58 AM CDT Narrative [facility] - 11/24/2024 12:59 PM [...] MD LAB - CHEMISTRY ORDERABLES Final Result [facility] [address] [place] [address] * TYPE + SCREEN PANEL (11/24/2024 11:19 AM CDT) Pathologist [facility] ABO Rh A POS 11/24/2024 12:43 PM CDT [facility] Comment:No history; collect retype. Antibody Screen NEG 12:43 PM CDT [facility] Blood Bank BLOOD SPECIMEN / Unknown Venipuncture / Unknown 11/24/2024 11:19 AM CDT 11/24/2024 11:58 AM CDT us Anna Alvarado MD LAB - BLOOD BAN K ORDERABLES Final Result [facility] [address] [phone] * CBC W AUTO DIFFERENTIAL (11/24/2024 11:19 AM CDT) Pathologist [facility] WBC 7.7 4.0 - 10.7 x10E9/L 11/24/2024 12:17 PM CDT [facility] RBC Count 4.25 3.90 - 5.20 x10E12/L 11/24/2024 12:17 PM CDT [facility] Hemoglobin 12.0 11.9 - 15.8 g/dL 11/24/2024 12:17 PM CDT [facility] Hematocrit 37.0 34.8 - 46.1 % 11/24/2024 12:[address] [facility] MCV 87.1 80.0 - 98.0 fL 11/24/2024 12:17 PM T [facility] MCH 28.2 26.7 - 33.6 pg 11/24/2024 12:17 PM CDT [facility] MCHC 32.4 31.7 - 36.3 g/dL 11/24/2024 12:17 PM CDT [facility] RDW-CV 12.7 11.3 - 14.8 % 11/24/2024 12:17 PM T [facility] Platelet Count 254 150 - 420 x10E9/L 11/24/2024 12:17 PM T [facility] MPV 10.8 7.8 - 11.4 fL 11/24/2024 12:17 PM CDT [facility] Neutrophil % 60.9 41.0 - 74.0 % 11/24/2024 12:17 PM CDT [facility] Lymphocyte % 26.8 17.0 - 47.0 % 11/24/2024 12:17 PM CDT [facility] Monocyte % 9.9 3.0 - 11.0 % 11/24/2024 12:17 PM CDT [facility] Eosinophil % 1.0 0.0 - 7.0 % 11/24/2024 12:17 PM CDT [facility] Basophil % 0.4 0.0 - 1.6 % 11/24/2024 12:17 PM CDT [facility] Immature Granulocytes % 1.0 0.0 - 1.0 % 11/24/2024 12:17 PM CDT [facility] Neutrophil Absolute 4.69 1.60 - 7.50 x10E9/L 11/24/2024 12:17 PM CDT [facility] Lymphocyte Absolute 2.06 1.00 - 4.40 x10E9/L 11/24/2024 12:17 PM CDT [facility] Monocyte Absolute 0.76 0.15 - 1.00 x10E9/L 11/24/2024 12:17 PM CDT [facility] Eosinophil Absolute 0.08 0.00 - 0.60 x10E9/L 11/24/2024 12:17 PM CDT [facility] Basophil Absolute 0.03 0.00 - 0.13 x10E9/L 11/24/2024 12:17 PM CDT [facility] Blood BLOOD SPECIMEN / Unknown Venipuncture / Unknown 11/24/2024 11:19 AM CDT 11/24/2024 11:58 AM CDT us Anna Alvarado MD LAB - HEMATOLOG Y ORDERABLES Final Result [facility] [address] [place] [address] * HEPATITIS B SURFACE ANTIGEN W RFLX CONFIRMATION (11/24/2024 11:19 AM CDT) HBsAg Non Reactive Non Reactive 11/24/2024 1:07 PM CDT [facility] Blood BLOOD SPECIMEN / Unknown Venipuncture / Unknown 11/24/2024 11:19 AM CDT 11/24/2024 11:58 AM CDT Anna Alvarado MD LAB - CHEMISTRY ORDERABLES Final Result Performing Organization Address City/[facility]/ZIP Co de Phone Number [facility] [address] [place] [address] * HEPATITIS C ANTIBODY (11/24/2024 11:19 AM CDT) HCV Antibody Screen Non Reactive Non Reactive 11/24/2024 1:08 PM CDT [facility] Blood BLOOD SPECIMEN / Unknown Venipuncture / Unknown 11/24/2024 11:19 AM CDT 11/24/2024 11:58 AM CDT Narrative [facility] - 11/24/2024 1:08 PM CDT Non Reactive - Antibodies to Hepatitis C virus (HCV) were not detected, result does not exclude early acute HCV infection. Anna Alvarado MD LAB - CHEMISTRY ORDERABLES Final Result Performing Organization Address [facility] Co de Phone Number [facility] [address] [place] [address] * FERRITIN (11/24/2024 11:19 AM CDT) Pathologist [facility] Ferritin 128 5 - 204 ng/mL 11/24/2024 12:51 PM CDT [facility] Blood BLOOD SPECIMEN / Unknown Venipuncture / Unknown 11/24/2024 11:19 AM CDT 11/24/2024 11:58 AM CDT Result [facility] Anna Alvarado MD LAB - CHEMISTRY ORDERABLES Final Result Performing Organization Address City/[facility]/ZIP Co de Phone Number [facility] [address] [place], [place] [phone] from Last 3 Months Insurance MEDICARE Member Subscriber Plan / Payer (Ef fective for All Dates) Name:Chong Macksahra Valdez Member ID:[id number] Relation to Subscriber:Self Name:Chong Macksahra Valdez Subscriber ID:[id number] Payer ID:Not on file Group ID:Not on file Type:Medicare Address: [address] MEDICARE Member Subscriber Plan / Payer (Ef fective for All Dates) Name:Fabiangegesharan Violet E Member ID:[id number] Relation to Subscriber:Self Name:Chong Mackitlyn José Miguel Subscriber ID:[id number] Payer ID:Not on file Group ID:Not on file Type:Medicare Address: [address] * Guarantor: VIOLET MACK Account Type Relation to Patient Date of Phone Billing Address Personal/Family Spouse
[2025-01-19 22:45] VITALS: BP 108/66; PULSE 85; RESP 16; TEMP 36.5; O2SAT 100
[2025-01-20 00:26] VITALS: BP 118/76; PULSE 97; RESP 15; TEMP 36.3; O2SAT 100
--- OUTSIDE RECORDS SUMMARY | 2025-01-20 02:35 | XMS_ITS ---
Author Organization [facility] [employer] Address [address] [place] [address] Care Team Providers Care Highway Maintenance Worker Name Role Phone Maryanne COLLADO, Hernan Primary Care Provider Un available Tian Frazier Unavailable [phone] REASON FOR VISIT R/S due to being sick, could not do tele Social History Sex Assigned At : Social History Observation Description Sex Assigned At Female Encounters Encounter Location Date Provider Diagnosis [facility] [employer] [facility] [address] [place] [address] 12/02/2024 Tian Frazier Plan Of Treatment Next Appt Details Provider Name:Tian tapia, 02/04/2025 01:00:00 PM, [address], [address], [place], [address], Progress Notes * BIANKA WESTLEYANGELINAOB:2000 (24 yo F)Acc No.[id number]:12/02/2024 Patient: JANELLE KELLY Provider: GERALD CHANDRA :2000 A ge:24 Y S ex:Female Date:12/02/2024 Address:[address] [place], [place] [address] Pcp:Hernan Madden MD Subjective: * Chief Complaints: * 1 . R/S due to being sick, could not do tele. * Medical History: Objective: * Vitals: Assessment: Plan: * Treatment: * Billing Information: * Visit Code: * Procedure Codes: * Electronic signature of GERALD Lopez on 01/20/2025 at 02:35 AM CDT Sign off status: Pending * Provider: GERALD CHANDRA Date: 12/02/2024 Generated for Marti bermeo/Mao/Nahid on: 01/20/2025 02:35 AM CDT
--- OUTSIDE RECORDS SUMMARY | 2025-01-20 02:35 | XMS_ITS | Encounter Summary ---
Author Organization [facility] Address [address] [facility] [place] [address] Care Team Providers Care General Helper Name Role Phone Unavailable Primary Care Provider Unavailabl e Encounter Details Date Type Department Care Team (Late st Contact Info) Description 11/27/2024 Results Follow-Up [facility] [address] [facility] [place] [address] Ck Bansal MD [address] [place] [address] Social History Tobacco Use Types Packs/Day Years [...] care, and heating? Not very hard 11/24/2024 [facility] [place] of Occupat ional Health - Occupational Stress [...] things needed for daily living? No 11/24/2024 Darrow Depression Scale Answer Date Recorded Darrow Depression Scale Total 2 11/24/2024 The thought [...] any time in the past 12 m [facility], were you homeless or living in a [place] facility (including now)? 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 [place] [address] 01/26/2025 9:00 AM CDT Appointment [facility] [address] [place] [address] 02/09/2025 7:30 AM CDT Appointment [facility] [address] [place] [address] 03/16/2025 1:00 PM CDT Appointment [facility] [address] [place] [address] Sourav Jaimes MD [address] [place] [address] 03/24/2025 1:30 PM CDT Office Visit [facility] - [facility] [address] [facility], [place] [phone] Pj Cheney, MU [address] [place] [address] documented as of this encounter Visit Diagnoses Not on filedocumented in this encounter
--- OUTSIDE RECORDS SUMMARY | 2025-01-20 02:35 | XMS_ITS | Encounter Summary ---
Author Organization [facility] Address [address] [facility] [place] [address] Care Team Providers Care Biology Intern Name Role Phone Marcelle Hernandez MD Primary Care Provider [phone] Encounter Details Date Type Department Care Team (Late st Contact Info) Description 09/17/2019 Telephone [facility] Pediatrics - Diabetes [address] [address] Camron Brandon, RECONNAISSANCE CREWMEMBER-POWER HOUSE CONTROL ROOM OPERATOR [address] [place] [phone] Social History Tobacco Use Types Packs/Day Years Used Date Smoking Tobacco: Never Smokeless Tobacco: Never Alcohol Use Standard Drinks/Week Comments No 0 (1 standard drink = 0.6 oz pur e alcohol) Comments No Sex and Gender Information Value Date Recorded Sex Assigned at Not on file 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 [address] [address] 01/26/2025 9:00 AM CDT Appointment [facility]/ EVALUATION UNIT [address] [place] [address] 02/09/2025 7:30 AM CDT Appointment [facility]/ [facility]ATION UNIT [address] [place] [address]. [address] [address] 03/16/2025 1:00 PM CDT Appointment [facility] [address] [place] [address] Sourav Jaimes MD [address] [facility] [address] [place] [address] 03/24/2025 1:30 PM CDT Office Visit [facility] - [facility] [address] [facility], [place] [phone] Pj Cheney, MU [address] [place] [address] documented as of this encounter Visit Diagnoses Not on filedocumented in this encounter Additional Health Concerns Infection Onset Date Last Indicated Resolved Time COVID-19 Under Investigation 12/22/2019 12/23/2019 12/24/2019 2:58 PM CDT documented as of this encounter Care Teams Biology Intern Relationship Specialty Start Date End Date Marcelle Hernandez MD [address] [place] [address] PCP - General Pediatrics 12/27/15 09/30/24 documented as of this encounter
--- OUTSIDE RECORDS SUMMARY | 2025-01-20 02:35 | XMS_ITS ---
Author Organization [facility] Address [address] [place] [address] Care Team Providers Care Actuarial Trainee Name Role Phone Cici Fuller Primary Care Provider [phone] REASON FOR VISIT diabetes/ medicare & mutual [employer] Encounters Encounter Location Date Provider Diagnosis [facility] - Cici Fuller [address] [place] [address] 10/29/2023 Cici Fuller Plan Of Treatment No Information Progress Notes * Kermit MACKOB:2000 (24 yo F)Acc No.[id number]:10/29/2023 Progress Notes Patient: Zhen HALLMAN Violet Provider: Zhen Fuller MD :2000 A ge:23 Y S ex:Female Date:10/29/2023 [facility] [facility] Subjective: * Chief Complaints: * 1 . diabetes/ medicare & [employer]. * Medical History: Objective: * Vitals: Assessment: Plan: * Treatment: * Billing Information: * Visit Code: * Procedure Codes: * Electronic signature of Bobby Fuller MD on 01/20/2025 at 02:34 AM CDT Sign off status: Pending * Provider: Zhen Fuller MD Date: 10/29/2023 Generated for Marti bermeo/Mao/eTransmitting on: 01/20/2025 02:34 AM CDT
--- OUTSIDE RECORDS SUMMARY | 2025-01-20 02:35 | XMS_ITS | Encounter Summary ---
Author Organization [facility] Address [address] [place] [address] Care Team Providers Care Decorator Consultant Name Role Phone Unavailable Primary Care Provider Unavailabl e Reason for Visit * Reason Comments Maternal Medicine Diabetes Encounter Details Date Type Department Care Team (Late st Contact Info) Description 01/19/2025 9:30 AM CDT Hospital Encounter [facility]NAL/ EVALUATION UNIT [address] [place] [address] Anna Fry, TAX EXPERT-SHOT DROPPER [address] [place] [address] Discharge Disposition: Home or Self Care Social History Tobacco Use Types Packs/Day Years [...] care, and heating? Not very hard 11/24/2024 [place] of Occupat ional Health - Occupational Stress [...] things needed for daily living? No 11/24/2024 [place] Depression Scale Answer Date Recorded [place] Depression Scale Total 2 11/24/2024 The thought [...] in the past 12 m [facility], were you homeless or living in a residential (including now)? 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 Answer Entry Date Author No 12/26/2019 12:06 PM CDT Sridevi Rosales RN documented in this encounter Medications at Time of Discharge acetaminophen (Tylenol) 500 MG tablet Take 2 (two) tablets by mouth every 8 hours as needed for Fever, Pain or Headache Maximum allowable Acetaminophen amount = 4 Grams (4000 mg) / 24 hours. albuterol HFA (ProAir HFA) 108 (90 Base) MCG/ACT inhaler Inhale 2 (two) puffs by mouth every 4 hours as needed 8.5 g 11/24/2024 Basaglar KwikPen (Basaglar) pen Inject 16 units every AM and 16 units every PM. Space doses 12 hours apart. Increase dose as directed during . Max total daily dose = 50 units. 15 mL 5 12/08/2024 blood glucose (OneTouch Verio) test stripIndications : complicated by pre-existing type 2 diabetes in first trimester ([facility]) Please supply strips to match meter best covered by insurance for testing 3 times per day 100 strip 5 12/09/2024 Blood Glucose Monitoring Suppl (OneTouch Verio Flex System) w/Device KITIndications:P regnancy complicated by pre-existing type 2 diabetes in first trimester ([facility]) Use 1 kit as directed 1 kit 12/09/2024 budesonide-formo terol (Symbicort) 160-4.5 MCG/ACT inhaler Inhale 2 (two) puffs by mouth 2 times daily 10.2 g 3 12/01/2024 cetirizine (ZyrTEC) 10 MG tablet Take 1 (one) tablet by mouth once daily dextromethorphan polistirex ER (Delsym) liquid Take 10 mL by mouth every 12 hours as needed for Cough EPINEPHrine (Epipen) 0.3 MG/0.3ML auto-injector pen Inject 0.3 mL into muscle once as needed for Anaphylaxis 0.6 mL 1 11/24/2024 glucagon (Glucagen) injection Inject 1 (one) mg into muscle as needed 1 Each 12/01/2024 Glucagon (Gvoke HypoPen 1-Pack) 0.5 MG/0.1ML SOAJ Inject 1 Each subcutaneously as needed 0.1 mL 11/26/2024 Insulin Pen Needle (TechLite Pen [place]) 32G X 4 MM MISCIndications: complicated by pre-existing type 2 diabetes in first trimester ([facility]) Use 1 Each 3 times daily 100 Each 12/08/2024 Lancets (ONETOUCH DELICA PLUS 33G EXTRA FINE LANCET)Indicatio ns: complicated by pre-existing type 2 diabetes in first trimester ([facility]) Please supply lancets to match lancing device best covered by insurance for testing 3 times per day 100 Each 12/09/2024 omeprazole (PriLOSEC) 20 MG capsule Take 1 (one) capsule by mouth daily before breakfast ondansetron, disintegrating, (Zofran ODT) 4 MG tablet Take 1 (one) tablet by mouth every 6 hours as needed for Nausea/Vomiting 11/11/2024 polyethylene glycol 3350 (Miralax) 17 GM/SCOOP powder Take 17 (seventeen) g by mouth once daily plus iron (Natatab) 29-1 MG tablet Take 1 (one) tablet by mouth once daily 30 tablet 11/24/2024 pyridoxine (Vitamin B-6) 25 MG tablet Take 2 (two) tablets by mouth 4 times daily triamcinolone acetonide (KENALOG) 0.1 % ointment 02/25/2019 venlafaxine XR 24hr (Effexor XR) 75 MG capsule Take 1 (one) capsule by mouth daily with breakfast documented as of this encounter Progress Notes * Anna Fry, CARMEN-SHOT DROPPER - 01/19/2025 9:31 AM CDT Images from the original note were not included. CHEMICAL LABORATORY SCIENTIST [facility] Return Visit 01/19/25 S: [...] this a.m. Her dosing times is 11:00 [id number]. Pt states her Dexcom fell off in [...] doesn't have sugar she feels very fatigued. CHEMICAL LABORATORY SCIENTIST requested that the product accountant see this patient today. O: Vitals: 01/19/25 [...] PNC initially with Dr. Cristina Stover at [facility] - PNL: : A+/I/-/-, [...] metformin 500 BID - Current regimen: Lantus /, Log 6 with lunch (most consistent meal she eats) - Pt reports rash and throat tightening allergy to NSAIDs; defer LDASA, discussed with Pharmacy Plan: - Continue insulin regimen of Lantus /u, Log 6u with all meals. - echo [...] Current psychiatrist is Adán Correia APRN in [place], [place] - Prior to was on Lamotrigine 100mg BID and Venlafaxine 75mg QD - Recommendation from psychiatrist (12/15, [facility]) - Continue Venlfaxine 75mg QD - Lamotrigine [...] pain - Current orthopedist: Dr. Daniel Espinosa ([facility])- last visit seen in [place] was 05/25/22. [...] Unspecified learning disorder - pt reported at [facility] does not have ADHD anymore - Pt's grandmother (tenter) reports patient has a learning disorder- could not provide furtherdetails Complex social situation - Pt's mother had alcohol syndrome and had adopted the patient but now the pt is cared for byher adoptive grandmother. Pt's mother present at some visits. - Pt also with unspecified learning disorder/possible developmental delay (see above) Plan: - DEV MANAGER consulted - Recommend Nurses for Newborns after deliver Palpitations POTS - Pt has h/o palpitations and dx with POTs by desktop analyst, Dr. Ward Fried - Prior to on Clorenor PRN - Now discontinued in , to discuss with Child Protection Specialist - Asymptomatic today; continue to monitor Abnormal [...] Info) Description 01/26/2025 9:00 AM CDT Appointment [facility] MATERNAL/ EVALUATION UNIT [address] [place] [address]. [address] [address] 01/26/2025 9:00 AM CDT Appointment [facility] MATERNAL/ EVALUATION UNIT [address] [place] [address]. [address] [place] [address] 02/09/2025 7:30 AM CDT Appointment [facility] MATERNAL/ EVALUATION UNIT [address] [place] [address]. [address] [address] 03/16/2025 1:00 PM CDT Appointment [facility] [address] [place] [address] Sourav Jaimes MD [address] [facility] [address] [place] [address] 03/24/2025 1:30 PM CDT Office Visit [facility] - Ophthalmology [address] [facility], [place] [phone] Pj Cheney, OD [address] [place] [phone] Scheduled Orders Name Type Priority Associated Diagnoses Orde r Schedule ECHO - CUPID Echocardiography Cupid Routine Type 2 diabetes mellitus without complication, unspecified whether senior living insulin use (HCC) ONCE for 1 Occurrences [...] Yellow, Light Yellow 01/19/2025 9:50 AM CDT [facility] Clarity UA POCT Clear Clear 9:50 AM CDT [facility] Specific [place] UA POCT 1.020 1.005 - 1.030 01/19/2025 9:50 AM CDT [facility] pH UA POCT 6.0 5.0 - 8.0 pH 01/19/2025 9:50 AM CDT [facility] Protein UA POCT Negative Negative 9:50 AM CDT [facility] Blood UA POCT Negative Negative 01/19/2025 9:50 AM CDT [facility] Leukocyte UA POCT Negative Negative 01/19/2025 9:50 AM CDT [facility] Nitrite UA POCT Negative Negative 9:50 AM CDT [facility] Glucose UA POCT 1+(A) Negative 9:50 AM CDT [facility] Ketone UA POCT Negative Negative 01/19/2025 9:50 AM CDT [facility] Bilirubin UA POCT Negative Negative 01/19/2025 9:50 AM CDT [facility] Urobilinogen UA POCT 0.2 0.1 - 1.0 EU/dL 01/19/2025 9:50 AM CDT [facility] Urine URINE / Unknown 01/19/2025 9 :48 AM CDT 01/19/2025 9:50 AM CDT us Anna NOONAN [facility] - POINT OF CARE ORDERABLES Final Result Performing Organization Address [facility] Co de Phone Number [facility] [address] [place] [phone] * (ABNORMAL) GLUCOSE - POINT OF CARE (01/19/2025 9:43 AM CDT) [facility] Glucose WB/POC 191(H) 70 - 99 mg/dL 01/19/2025 9:52 AM CDT [facility] Specimen Type Arterial/C apillary 01/19/2025 9:52 AM CDT [facility] Blood BLOOD SPECIMEN / Unknown 01/19/2025 9:43 AM CDT 01/19/2025 9:52 AM CDT us Anna NOONAN [facility] - POINT OF CARE ORDERABLES Final Result Performing Organization Address [facility] Co de Phone Number [facility] [address] [place] [address] documented in this encounter Visit Diagnoses Diagnosis Type 2 diabetes mellitus without complication, unspecified whether student financial aid manager insulin use (HCC)- Primary documented in this encounter
--- OUTSIDE RECORDS SUMMARY | 2025-01-20 02:35 | XMS_ITS ---
Author Organization Pending Sale To [facility] ([address]) Address [address] [place] [address] Care Team Providers Care Senior Compensation Consultant Name Role Phone Liliana Riley Primary Care Provider UnavailSharee Carlos Unavailable [phone] [employer], Provider Unavailable Unavailab le Allergies Allergen (clinical drug ingredient) Drug/Non Drug Allergy documented on EMR Reaction Allergy Type Onset Date Status CHLOR-TRIMETON (uncoded) itching Allergy Active DAYQUIL COUGH (uncoded) hives Allergy Active azithromycin Azithromycin itching Drug Allergy A ctive ibuprofen Ibuprofen increase in headaches Drug Allergy Active REASON FOR VISIT [facility] To [facility] Conversion Encounter Medications Medication SIG (Take, Route, [...] review and pick correct strength-formulat ion from [facility] options. If intended option is not shown, discontinue and re-order from Quick Search* Active lamoTRIgine 100 MG 1 tab(s) orally 2 times a day Active Corlanor 5 MG 1 tab(s) orally 2 times a day (with meals) Active Encounters Encounter [facility] Date [facility] [address] [facility]/01/[facility]23 Provider Vignesh Mild intermittent asthma, uncomplicated [...] Notes * Amy MACKWillOB:2000 (24 yo F)Acc No.[id number]:12/01/2023 Patient: Violet KELLY Provider: Karma Ferguson :2000 A ge:23 Y S ex:Female Date:12/01/2023 Address:[address] [place], [place] [phone] Pcp:Liliana Riley Subjective: * Chief Complaints: * [address] [facility]. * Medical History: * Medications: [...] * Electronic signature of Anh GALAN-Migration on 01/20/2025 at 02:35 AM CDT Sign off status: Pending * Provider: Karma torres Migration Date: 0 12/01/2023 Generated for Marti bermeo/Mao/Nahid on: 0 01/20/2025 02:35 AM CDT
--- OUTSIDE RECORDS SUMMARY | 2025-01-20 02:35 | XMS_ITS | Patient Health Record ---
Author Organization [facility] [employer] Address [address] [place] [address] Care Team Providers Care Guardian Ad Litem Name Role Phone Maryanne COLLADO, Hernan Primary Care Provider Un available Tian Frazier Unavailable [phone] Allergies Allergen (clinical drug ingredient) Drug/Non Drug [...] Problem Status W/U Status Risk Notes Problem Major depressive disorder, recurrent, mild (F33.0) 05/22/20 24 Active confirmed Problem Generalized anxiety disorder (58879674) Generalized anxiety disorder (F41.1) 11/07/19 Active confirmed Problem Posttraumatic stress disorder (35358342) Post-traumatic stress disorder, chronic (F43.12) 11/07/19 Active confirmed Problem Insomnia disorder related to another mental disorder (59627221) Insomnia due to other mental disorder (F51.05) 11/07/19 Active confirmed Problem Intermittent explosive disorder (71260003) Intermittent explosive disorder (F63.81) 11/07/19 Active confirmed Problem Attention deficit hyperactivity disorder, combined type (09517893) Attention-deficit hyperactivity disorder, combined type (F90.2) 11/07/19 Active confirmed Vital Signs Heart Rate 106 /min 12/10/2024 Height-cm 165.10 cm 01/07/2025 Blood pressure diastolic 74 mm Hg 01/07/2025 Weight-kg 75.3 kg 01/07/2025 Height 65.00 in 01/07/2025 Blood pressure systolic 114 mm Hg 01/07/2025 Weight 166 lbs 01/07/2025 BMI 27.62 kg/m2 01/07/2025 Encounters Encounter Location Date Provider Diagnosis [facility] [employer] [place] [address] [facility] [address] [place] [address] 04/07/2024 Tian Frazier Intermittent explosi ve disorder F63.81 ; Post-traumatic stress disorder, chronic F43.12 ; Attention-deficit hyperactivity disorder, combined type F90.2 ; Generalized anxiety disorder F41.1 ; Insomnia due to other mental disorder F51.05 ; Major depressive disorder, recurrent, mild F33.0 and Marijuana use F12.90 [facility] [employer] [place] [address] [facility] [address] [place] [address] 07/07/2024 Tian Frazier [facility] [employer] [facility] [address] [facility] [address] [place] [address] 09/02/2024 Tian Frazier Generalized anxiety disorder F41.1 ; Major depressive disorder, recurrent, mild F33.0 ; Post-traumatic stress disorder, chronic F43.12 ; Attention-deficit hyperactivity disorder, combined type F90.2 ; Intermittent explosive disorder F63.81 ; Insomnia due to other mental disorder F51.05 ; Encounter for screening for depression Z13.31 ; Encounter for screening for cardiovascular disorders Z13.6 and Marijuana use F12.90 [facility] [address] [place] [address] 12/10/2024 Tianobdulio Frazier Encounter for screen ing for cardiovascular disorders Z13.6 ; Generalized anxiety disorder F41.1 ; Major depressive disorder, recurrent, mild F33.0 ; Post-traumatic stress disorder, chronic F43.12 ; Attention-deficit hyperactivity disorder, combined type F90.2 ; Intermittent explosive disorder F63.81 ; Insomnia due to other mental disorder F51.05 ; Encounter for screening for depression Z13.31 and state, incidental Z33.1 [facility] [address] [place] [address] 01/07/2025 Tian Frazier Generalized anxiety disorder F41.1 [...] - Z33.1) 12 weeks 09/02/2024 Other Violet Mack, female patient with history of [...] 28. She is receiving regular care at [facility] every Sunday with a team of healthcare providers. Recent genetic testing has returned normal results. Patient reports nausea and vomiting, particularly with multivitamin intake and excessive food consumption. Diabetes management has been adjusted for . Plan: - Continue weekly appointments at [facility] - Monitor for nausea and vomiting [...] correct them. 01/07/2025 Other [email or web address] Violet Frederick, a 62-year-old female, presents with ongoing mood [...] Provider Name:Tian tapia, 02/04/2025 01:00:00 PM, [address] [facility] [address] [facility] [address], [place], [address], Insurance Providers Payer Name Payer Address Payer Phone Subscriber Number Group Number Insured Name Patient Relationship to Insured Coverage Start Date Coverage End Date [place] [address] [place] [address] [id number] VIOLET ZHENG Self - patient is the insured [place] [employer] [place] Medicare Supplement [address] [place] [address] [id number] PLAN G VIOLET ZHENG Self - patient [...] Surgical History Surgery Date(Month/Year) Correction of scoliosis (720600783) 12/16
--- OUTSIDE RECORDS SUMMARY | 2025-01-20 02:35 | XMS_ITS | Clinical Summary ---
Author Organization [facility] Address [address] [place] [address] Care Team Providers Care Custodial Engineer Name Role Phone Hernan Madden MD Primary [...] on file Legal Sex Female 1:45 PM MEDICAL RECORDS MANAGER Gender Identity Not on file Sexual [...] 167.6 cm (5' 6) 06/12/2024 11:49 AM MEDICAL RECORDS MANAGER Body Mass Index 27.18 06/12/2024 11:49 AM MEDICAL RECORDS MANAGER Plan of Treatment Upcoming Encounters Date Type Department Care Team (Late st Contact Info) Description 04/23/2025 11:00 AM MEDICAL RECORDS MANAGER Office Visit [facility] Oncology and Hematology - [place] [address] [place] [phone] Mike Llanes MD [address] [facility] [address] [place] [phone] Health Maintenance Due Date Last Done [...] 09/06/2020 Insurance MEDICARE PART A AND B [facility] Care Teams Custodial Engineer Relationship Specialty Start Date End Date Hernan Madden MD [address] [place] [phone] PCP - General Internal Medicine 06/27/24
--- OUTSIDE RECORDS SUMMARY | 2025-01-20 02:35 | XMS_ITS | Encounter Summary ---
Author Organization [facility] Address [address] [facility] [place] [address] Care Team Providers Care Electrolysis Investigator Name Role Phone Unavailable Primary Care Provider Unavailabl e Encounter Details Date Type Department Care Team (Late st Contact Info) Description 01/19/2025 9:30 AM CDT Hospital Encounter [facility] MATERNAL/ EVALUATION UNIT [address] [place] [address] Anna Fry, CARMEN-IDEA WORKER [address] [place] [address] Discharge Disposition: Home or Self [...] care, and heating? Not very hard 11/24/2024 [facility] [place] of Occupat ional Health - Occupational Stress [...] things needed for daily living? No 11/24/2024 [place] Depression Scale Answer Date Recorded [place] Depression Scale Total 2 11/24/2024 The thought [...] any time in the past 12 m [facility], were you homeless or living in a detention (including now)? No 11/24/2024 Estimated Date of Delivery Comme nts Yes 06/29/2025 Based on Ultraso und Sex and Gender Information Value Date Recorded Sex Assigned at Not on file Legal Sex Female 5:45 AM SHIP FITTER Gender Identity Not on file Sexual Orientation [...] Sridevi Kraft RN documented in this encounter Medications at [...] 2 diabetes in first trimester ([facility]) Please supply strips to match meter best covered by insurance for testing 3 times per day 100 strip 5 12/09/2024 Blood Glucose Monitoring Suppl (OneTouch Verio Flex System) w/Device KITIndications:P regnancy complicated by pre-existing type 2 diabetes in first trimester ([facility]) Use 1 kit as directed 1 kit [...] mL 11/26/2024 Insulin Pen Needle (TechLite Pen [place]) 32G X 4 MM MISCIndications: complicated by pre-existing type 2 diabetes in first trimester ([facility]) Use 1 Each 3 times daily 100 Each 12/08/2024 Lancets (ONETOUCH DELICA PLUS 33G EXTRA FINE LANCET)Indicatio ns: complicated by pre-existing type 2 diabetes in first trimester ([facility]) Please supply lancets to match lancing device [...] with breakfast documented as of this encounter Plan of Treatment Upcoming Encounters Date Type Department Care Team (Late st Contact Info) Description 01/26/2025 9:00 AM CDT Appointment [facility] MATERNAL/ EVALUATION UNIT [facility] [address] [place] [address] 01/26/2025 9:00 AM CDT Appointment [facility] MATERNAL/ EVALUATION UNIT [facility] [address] [place] [address] 02/09/2025 7:30 AM CDT Appointment [facility] MATERNAL/ EVALUATION UNIT [facility] [place] [address] 03/16/2025 1:00 PM CDT Appointment [facility] Heart & Vascular Care [address] [place] [address] Sourav Jaimes MD [address] [facility] [address] [place] [address] 03/24/2025 1:30 PM CDT Office Visit [facility] - Ophthalmology [address] [place] [phone] Pj Cheney, MU [address] [place] [phone] documented as of this encounter Visit Diagnoses Not on filedocumented in this encounter
--- OUTSIDE RECORDS SUMMARY | 2025-01-20 02:35 | XMS_ITS | Encounter Summary ---
Author Organization [facility] Address [address] [place] [address] Care Team Providers Care Senior Training Specialist Name Role Phone Marcelle Hernandez MD Primary Care Provider [phone] Reason for Visit * Reason Onset Date Comments Scheduling 06/27/2019 Encounter Details Date Type Department Care Team (Late st Contact Info) Description 06/27/[address] [facility] [address] [place] [address] Mita Crum MD [address] [place] [id number] Scheduling Social History Tobacco Use Types Packs/Day Years Used Date Smoking Tobacco: Never Smokeless Tobacco: Never Alcohol Use Standard Drinks/Week Comments No 0 (1 standard drink = 0.6 oz pur e alcohol) Comments No Sex and Gender Information Value Date Recorded Sex Assigned at Not on file Legal Sex Female 5:45 AM WATCH REPAIRER Gender Identity Not on file Sexual Orientation [...] would like prep mailed to her at: [address] [facility] [address] Of note: Pt has diabetes, and Mom says that they (she did not specify) will not prescribe her medicine until we perform the scope. However, she expressed understanding at having to reschedule. * Telephone Encounter - Ciera Peterson RN - 09/10/2019 3:00 PM CDT Discussed plan to reschedule EGD, mom is aware that corporate secretary will be calling to arrange. * Telephone Encounter - Mita Crum MD - 09/10/2019 2:56 PM CDT Unfortunately need to reschedule Violet's elective upper endoscopy for 2-3 months given COVID19 concerns * Telephone Encounter - Emily Lozano RN - 08/18/2019 10:51 AM WATCH REPAIRER Verified orders in epic. Prep instructions given to family in clinic. H REPAIRER * Telephone Encounter - Nayeli Toledo - 08/18/2019 10:49 AM WATCH REPAIRER Spoke with Stephanie in the clinic, scheduled EGD for 09/19/2019 @ 2:[address] Crum. H REPAIRER * Telephone Encounter - Glenna Calderon RN - 06/27/2019 1:28 PM CST Patient will need appointment with with MD before any procedures are ordered/scheduled. Will route to scheduling. May schedule with any provider as it has been so long since she has been seen. H REPAIRER * Telephone Encounter - Felisa Ramesh - 06/27/2019 1:22 PM CST Mom called and left a message that Dr. Madsen from [facility] is referring this pt to Dr. Crum. Mom says that Dr. Madsen wants the pt to have an upper GI scheduled before she will give medication. H REPAIRER documented in this encounter Plan of Treatment Upcoming Encounters Date Type Department Care Team (Late st Contact Info) Description 01/26/2025 9:00 AM CDT Appointment [facility] MATERNAL/ EVALUATION UNIT [address] [place] [address] 01/26/2025 9:00 AM CDT Appointment [facility] MATERNAL/ EVALUATION UNIT [address] [place] [address] 02/09/2025 7:30 AM CDT Appointment [facility] MATERNAL/ EVALUATION UNIT [address] [facility] [address] [place] [address] 03/16/2025 1:00 PM CDT Appointment [facility] [address] [place] [address] Sourav Jaimes MD [address] [facility] [address] [place] [address] 03/24/2025 1:30 PM CDT Office Visit [facility] - Ophthalmology [address] [place] [id number] Pj Cheney, MU [address] [place] [phone] documented as of this encounter Visit Diagnoses Not on filedocumented in this encounter Additional Health Concerns Infection Onset Date Last Indicated Resolved Time COVID-19 Under Investigation 12/22/2019 12/23/2019 12/24/2019 2:58 PM CDT documented as of this encounter Care Teams Senior Training Specialist Relationship Specialty Start Date End Date Marcelle Hernandez MD [address] [place] [address] PCP - General Pediatrics 12/27/15 09/30/24 documented as of this encounter
--- OUTSIDE RECORDS SUMMARY | 2025-01-20 02:35 | XMS_ITS | Encounter Summary ---
Author Organization [facility] Address [address] [place] [address] Care Team Providers Care Head Librarian Name Role Phone Unavailable Primary Care Provider [...] care, and heating? Not very hard 11/24/2024 [facility] of Occupat ional Health - Occupational Stress [...] things needed for daily living? No 11/24/2024 [place] Depression Scale Answer Date Recorded [place] Depression Scale Total 2 11/24/2024 The thought [...] were you homeless or living in a senior living (including now)? No 11/24/2024 Estimated Date of Delivery Comme nts Yes 06/29/2025 Based on Ultraso und Sex and Gender Information Value Date Recorded Sex Assigned at Not on file Legal Sex Female 5:45 AM SEMI DRIVER Gender Identity Not on file Sexual Orientation [...] Info) Description 01/26/2025 9:00 AM CDT Appointment [facility] MATERNAL/ EVALUATION UNIT [address] [place] [address]. [address] [place] [address] 01/26/2025 9:00 AM CDT Appointment [facility] MATERNAL/ EVALUATION UNIT [address] [place] [address] 02/09/2025 7:30 AM CDT Appointment [facility] MATERNAL/ EVALUATION UNIT [address] [place] [address] 03/16/2025 1:00 PM CDT Appointment [facility] [address] [place] [address] Sourav Jaimes MD [address] [place] [address] 03/24/2025 1:30 PM CDT Office Visit [facility] - Ophthalmology [address] [place] [id number] Pj Cheney, [address] [place] [address] documented as of this encounter Visit Diagnoses Not on filedocumented in this encounter
--- OUTSIDE RECORDS SUMMARY | 2025-01-20 02:36 | XMS_ITS | Patient Health Record ---
Author Organization [facility] Address [address] [address] Care Team Providers Care Shoemaker Custom Name Role Phone Cici Fuller Primary Care Provider [phone] Allergies Allergen (clinical drug ingredient) Drug/Non Drug Allergy documented on EMR Reaction Allergy Type Onset Date Status Z PACK (uncoded) Unknown Allergy Act jae Pepper PEPPER (uncoded) Unknown Allergy Act jae Results Component Value Reference Range Notes COMPREHENSIVE METABOLIC PANE L Reviewed date:05/17/2024 01:39:32 PM Interpretation: Performing Lab:KS, [facility], [address], [place], [address] Ebenezer Banks MD Notes/Report: VITAMIN D, 25-HYDROXY, LC/MS /MS Reviewed date:05/17/2024 01:59:29 PM Interpretation: Performing Lab:KS, [facility], [address], [place], [address] Ebenezer Banks MD Notes/Report: ACTH, PLASMA Reviewed date:05/21/2024 09:55:19 PM Interpretation: Performing Lab:AMD, [facility], [address], [place], [address] Chadwick Underwood M.D.,PhD Notes/Report: T3, FREE Reviewed date:05/17/2024 01:59:36 PM Interpretation: Performing Lab:KS, [facility], [address], [place], [address] Ebenezer Banks MD Notes/Report: CORTISOL, TOTAL Reviewed date:05/17/2024 02:05:26 PM Interpretation: Performing Lab:KS, [facility], [address], [place], [address] Ebenezer Banks MD Notes/Report: DHEA SULFATE Reviewed date:05/17/2024 02:05:44 PM Interpretation: Performing Lab:KS, [facility], [address], [place], [address] Ebenezer Banks MD Notes/Report: ESTRADIOL Reviewed date:05/17/2024 01:59:50 PM Interpretation: Performing Lab:KS, [facility], [address], [place], [address] Ebenezer Banks MD Notes/Report: FSH Reviewed date:05/17/2024 02:05:53 PM Interpretation: Performing Lab:KS, [facility], [address], [place], [address] Ebenezer Banks MD Notes/Report: HEMOGLOBIN A1c Reviewed date:05/17/2024 01:59:21 PM Interpretation: Performing Lab:[facility], [address], [place], [address] Ebenezer Banks Notes/Report: INSULIN Reviewed date:05/17/2024 02:06:08 PM Interpretation: Performing Lab:KS, [facility], [address], [place], [address] Ebenezer Banks MD Notes/Report: LH Reviewed date:05/17/2024 02:06:01 PM Interpretation: Performing Lab:KS, [facility], [address], [place], [address] Ebenezer Banks MD Notes/Report: MAGNESIUM Reviewed date:05/17/2024 01:39:49 PM Interpretation: Performing Lab:KS, [facility], [address], [place], [address] Ebenezer Banks MD Notes/Report: CBC (INCLUDES DIFF/PLT) Reviewed date:05/17/2024 01:31:12 PM Interpretation: Performing Lab:KS, [facility], [address], [place], [address] Ebenezer Banks MD Notes/Report: MICROALBUMIN, RANDOM URINE ( W/CREATININE) Reviewed date:05/17/2024 01:39:16 PM Interpretation: Performing Lab:JOHN, [facility], [address], [place], [address] Ebenezer Banks MD Notes/Report: VITAMIN B12/FOLATE, SERUM PA CHA Reviewed date:05/17/2024 01:59:43 PM Interpretation: Performing Lab:[facility], [address], [place], [address] Ebenezer Banks MD Notes/Report: PROGESTERONE Reviewed date:05/17/2024 02:00:13 PM Interpretation: Performing Lab:[facility], [address], [place], [address] Ebenezer Banks MD Notes/Report: IRON AND TOTAL IRON BINDING CAPACITY Reviewed date:05/17/2024 01:39:41 PM Interpretation: Performing Lab:[facility], [address], [place], [address] Ebneezer Banks MD Notes/Report: LIPID PANEL Reviewed date:05/17/2024 01:39:59 PM Interpretation: Performing Lab:[facility], [address], [place], [address] Ebenezer Banks MD Notes/Report: T4, FREE Reviewed date:05/17/2024 01:59:57 PM Interpretation: Performing Lab:[facility], [address], [place], [address] Ebenezer Banks MD Notes/Report: TSH Reviewed date:05/17/2024 02:00:05 PM Interpretation: Performing Lab:JOHN, [facility], [address], [place], [address] Ebenezer Banks MD Notes/Report: THYROID PEROXIDASE ANTIBODIE S Reviewed date:05/17/2024 02:05:36 PM Interpretation: Performing Lab:CB, [facility], [address] [place], [address] Paresh Lee Notes/Report: THYROID PEROXIDASE ANTIBODIES <1 <9 IU/mL TESTOSTERONE, FREE (DIALYSIS ) AND TOTAL,MS Reviewed date:05/17/2024 01:57:16 PM Interpretation: Performing Lab:Z3E, [facility], [address] [facility] [address], [address], [place], [address] Chanel Mcfadden MD,PhD Notes/Report: TESTOSTERONE, TOTAL, MS 19 2-45 ng/dL For additional information, please refer to https://education.[employer].com/faq/VPR907 (This link is being provided for informational/educational purposes only.) (Note) This test was developed and its analytical performance characteristics have been determined by [employer]. It has not been cleared or approved by the FDA. This assay has been validated pursuant to the CLIA regulations and is used for clinical purposes. TESTOSTERONE, FREE 4.5 0.1-6.4 pg/mL (Note) This test was developed and its analytical performance characteristics have been determined by [employer]. It has not been cleared or approved by the FDA. This assay has been validated pursuant to the CLIA regulations and is used for clinical purposes. 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 Problem Irregular menstruation (54254716) Irregular menstruation, unspecified (N92.6) Active confirmed Vital Signs Heart Rate 82 /min 06/09/2024 Blood pressure diastolic 70 mm Hg 06/09/2024 Height 66 in 06/09/2024 Blood pressure systolic 110 mm Hg 06/09/2024 Weight 180 lbs 06/09/2024 BMI 29.05 kg/m2 06/09/2024 Encounters Encounter Location Date Provider [facility] [employer] [address] [place] [address] 05/08/2024 Cici Fuller Type 2 diabetes elle itus with hyperglycemia E11.65 ; Other fatigue R53.83 ; Obesity, unspecified E66.9 ; Encounter for screening for lipoid disorders Z13.220 ; Irregular menstruation, unspecified N92.6 ; Vitamin D deficiency, unspecified E55.9 and Nontoxic goiter, unspecified E04.9 Scan [facility] [employer] [address] [place] [address] 06/09/2024 Cici Fuller Type 2 diabetes elle [...] EpiPen if needed. Consider referral to an mammography supervisor for further evaluation and management. 5. Insomnia:- [...] evaluation.- Plan: Provide options for imaging centers ([facility], [facility], or [facility]). Schedule imaging appointments and follow up with results. Spent 45 minutes preparing to see the patient (ex review of tests/chart), obtaining and / or reviewing separately obtained history, performing a medically appropriate examination and/or evaluation, counseling and educating the patient/family/managed care specialist, ordering medications, tests, or procedures, referring and communicating with other health managed care specialist, documenting clinical information in the electronic or other health record, independently interpreting results and communicating results to the patient/family/managed care specialist and care coordinating patient plan. Patient [...] D deficiency- Low vitamin D levelsPlan:- Recommend [id number] vitamin D supplement once daily 6. Iron [...] examination and/or evaluation, counseling and educating the patient/family/managed care specialist, ordering medications, tests, or procedures, referring and communicating with other health managed care specialist, documenting clinical information in the electronic or other health record, independently interpreting results and communicating results to the patient/family/managed care specialist and care coordinating patient plan. Patient [...] Coverage End Date WPS Medicare Part B [place] Claims Department [address] [address] [place] [address] [id number] Violet Lomeli Self - patient is the insured [employer] [place] [id number] [employer] [facility] [place] [place] [id number] Violet Lomeli Self - patient is the insured Medical (General) History Medical History History ICD Code TACHICARDIA DIABETIES Surgical History Surgery Date(Month/Year) 3 BACK SURGRIES
--- OUTSIDE RECORDS SUMMARY | 2025-01-20 02:36 | XMS_ITS | Referral Summary ---
Author Organization [facility] Address [address] [place] [address] Care Team Providers Care Lump Receiver Name Role Phone Sukhwinder Madden MD Primary [...] Cartridge) 30 gauge combo pack 30 each catalogue clerk before breakfast 3 each 3 3 Active [...] 08/04/2021 Assessment & Plan (05/31/2023 4:15 PM AUTOMATIC GLOVE TURNER AND FORMER): Hba1c was Lab Results Component Value Date [...] on file Legal Sex Female 12:00 PM AUTOMATIC GLOVE TURNER AND FORMER Gender Identity Not on file Sexual Orientation Not on file Last Filed Vital Signs Vital Sign Reading Time Taken Comments Blood Pressure 120/70 05/31/2023 2:17 PM AUTOMATIC GLOVE T[employer]NER AND FORMER Pulse 105 05/31/2023 2:17 PM AUTOMATIC GLOVE T[employer]NER [employer] FORMER Temperature - - Respiratory Rate 18 05/31/2023 2:17 PM AUTOMATIC GLOVE TURNER AND FORMER Oxygen Saturation - - Inhaled Oxygen Concentration - - Weight 80.7 kg (178 lb) 05/31/2023 2:17 PM AUTOMATIC GLOVE T[employer] AND FORMER Height 166.4 cm (5' 5.5) 05/31/2023 2:17 PM AUTOMATIC GLOVE T[employer]NER AND FORMER Body Mass Index 29.17 05/31/2023 2:17 PM AUTOMATIC GLOVE TURNER AND FORMER Plan of Treatment Not on file Procedures Procedure Name Priority Date/Time Associated Diagnosis Comments POCT HEMOGLOBIN A1C Routine 05/31/2023 2 :17 PM AUTOMATIC GLOVE [employer] FORMER Type 2 diabetes mellitus with hyperglycemia, with long-term current use of insulin (HCC) from Last 3 Months or Most Recently Relevant to Health Maintenance Results * (ABNORMAL) POCT hemoglobin A1c (05/31/2023 2:17 PM AUTOMATIC GLOVE T[employer] FORMER) Hemoglobin A1C, POC 7.5 % Blood spot 05/31/2023 2:17 PM AUTOMATIC GLOVE T[employer]NER AND FORMER Marco Antonio Geller MD POINT OF CARE TEST ORDERABLES Fi nal Result from Last 3 Months or Most Recently Relevant to Health Maintenance Insurance MEDICARE [facility] MEDICARE [employer] [employer] [place] Care Teams Lump Receiver Relationship Specialty Start Date End Date Sukhwinder Madden MD [address] [place] [address] PCP - General Internal Medicine 04/27/22
--- OUTSIDE RECORDS SUMMARY | 2025-01-20 02:36 | XMS_ITS | Patient Health Record ---
Author Organization [facility] Address [address] [facility] [address] [place] [address] Care Team Providers Care Home Care Assistant Name Role Phone Cici Fuller Unavailable [phone] Results Component Value Reference Range Flag Notes COMPREHENSIVE METABOLIC PANE L Reviewed date:05/17/2024 01:39:32 PM Interpretation: Performing Lab:[place], [email or web address], [address], [place], [address] LoFrancia Banks MD Notes/Report: reference range. Not [...] date:05/17/2024 01:59:29 PM Interpretation: Performing Lab:[facility], [address] [place], [address] Ebenezer Banks MD Notes/Report: educational purposes only.) (This link is being provided for informational/ http://education.Starline/faq/NBH951 For additional information, please refer to Note 1 See Note 1 code 33557 (patients >2yrs). 25-OH VIT D, (D2,D3), LC/MS/MS [...] date:05/21/2024 09:55:19 PM Interpretation: Performing Lab:[facility], [address], [place], [address] Chadwick Underwood M.D.,PhD Notes/Report: Reference range applies only to specimens collected between 7am-10am. ACTH, PLASMA 11 6-50 pg/mL T3, FREE Reviewed date:05/17/2024 01:59:36 PM Interpretation: Performing Lab:[facility], [address] [place], [address] Ebenezer Banks MD Notes/Report: T3, FREE 3.3 2.3-4.2 pg/mL N CORTISOL, TOTAL Reviewed date:05/17/2024 02:05:26 PM Interpretation: Performing Lab:[facility], [address] [place], [address] Ebenezer Banks MD Notes/Report: Reference Range: For 8 a.m.(7-9 a.m.) Specimen: 4.0-22.0 Reference Range: For 4 p.m.(3-5 p.m.) Specimen: 3.0-17.0 * Please interpret above results accordingly * CORTISOL, TOTAL 7.8 N DHEA SULFATE Reviewed date:05/17/2024 02:05:44 PM Interpretation: Performing Lab:[facility], [address] [place], [address] Ebenezer Banks MD Notes/Report: DHEA SULFATE 48 14-349 mcg/dL N ESTRADIOL Reviewed date:05/17/2024 01:59:50 PM Interpretation: Performing Lab:[facility], [address] [place], [address] Ebenezer Banks MD Notes/Report: Reference Range Follicular Phase: 19-144 Mid-Cycle: 64-357 Luteal Phase: 56-214 Postmenopausal: < or = 31 Reference range established on post-pubertal patient population. No pre-pubertal reference range established using this assay. For any patients for whom low Estradiol levels are anticipated (e.g. males, pre-pubertal children and hypogonadal/post-menopausal females), the [facility] Estradiol, Ultrasensitive, LCMSMS assay is recommended (order code 32651). Please note: patients being treated with the drug fulvestrant (Faslodex(R)) have demonstrated significant interference in immunoassay methods for estradiol measurement. The cross reactivity could lead to falsely elevated estradiol test results leading to an inappropriate clinical assessment of estrogen status. [facility] order code 02087-Yrgnzyaqz, Ultrasensitive LC/MS/MS demonstrates negligible cross reactivity with fulvestrant. ESTRADIOL 205 N FSH Reviewed date:05/17/2024 02:05:53 PM Interpretation: Performing Lab:[facility], [address] [place], [address] Ebenezer Banks MD Notes/Report: Reference Range Follicular Phase 2.5-10.2 Mid-cycle Peak 3.1-17.7 Luteal Phase 1.5- 9.1 Postmenopausal 23.0-116.3 FSH 5.3 N HEMOGLOBIN A1c Reviewed date:05/17/2024 01:59:21 PM Interpretation: Performing Lab[facility], [address], [place], [address] Ebenezer Banks Notes/Report: For someone without known [...] date:05/17/2024 02:06:08 PM Interpretation: Performing Lab:[facility], [address] [place], [address] Ebenezer Banks MD Notes/Report: Reference Range < or = 18.4 Risk: Optimal < or = 18.4 Moderate NA High >18.4 Adult cardiovascular event risk category cut points (optimal, moderate, high) are based on Insulin Reference Interval studies performed at [facility] in 2021. INSULIN 9.3 N LH Reviewed date:05/17/2024 02:06:01 PM Interpretation: Performing Lab:[facility], [address] [place], [address] Ebenezer Banks MD Notes/Report: Reference Range Follicular Phase 1.9-12.5 Mid-Cycle Peak 8.7-76.3 Luteal Phase 0.5-16.9 Postmenopausal 10.0-54.7 LH 11.6 N MAGNESIUM Reviewed date:05/17/2024 01:39:49 PM Interpretation: Performing Lab:[facility], [address] [place], [address] Ebenezer Banks MD Notes/Report: MAGNESIUM 2.1 1.5-2.5 mg/dL N CBC (INCLUDES DIFF/PLT) Reviewed date:05/17/2024 01:31:12 PM Interpretation: Performing Lab:[facility], [address] [place], [address] Ebenezer Banks MD Notes/Report: For adults, a [...] 10.6 7.5-12.5 fL N ABSOLUTE NEUTROPHILS 7257 0097-5415 cells/uL N ABSOLUTE LYMPHOCYTES 3434 850-3900 cells/uL N ABSOLUTE MONOCYTES 968 200-950 cells/uL H ABSOLUTE EOSINOPHILS 71 15-500 cells/uL N ABSOLUTE BASOPHILS 71 0-200 cells/uL N NEUTROPHILS 61.5 N LYMPHOCYTES 29.1 N MONOCYTES 8.2 N EOSINOPHILS 0.6 N BASOPHILS 0.6 N MICROALBUMIN, RANDOM URINE ( W/CREATININE) Reviewed date:05/17/2024 01:39:16 PM Interpretation: Performing Lab:[place], [facility], [address], [place], [address] Ebenezer Banks MD Notes/Report: Reference Range: Reference [...] Interpretation: Performing Lab:[facility], [place], [address] Ebenezer Banks MD Notes/Report: Reference Range Low: <3.4 Borderline: 3.4-5.4 Normal: >5.4 VITAMIN B12 473 585-2563 pg/mL N FOLATE, SERUM >24.0 N PROGESTERONE Reviewed date:05/17/2024 02:00:13 PM Interpretation: Performing Lab:[facility], [place], [address] Ebenezer Banks MD Notes/Report: Reference Ranges Female Follicular Phase < 1.0 Luteal Phase 2.6-21.5 Post menopausal < 0.5 1st Trimester 4.1-34.0 2nd Trimester 24.0-76.0 3rd Trimester 52.0-302.0 PROGESTERONE 0.9 N IRON AND TOTAL IRON BINDING CAPACITY Reviewed date:05/17/2024 01:39:41 PM Interpretation: Performing Lab:[facility], [place], [address] Ebenezer Banks MD Notes/Report: IRON, TOTAL 110 40-190 mcg/dL N IRON BINDING CAPACITY 401 250-450 mcg/dL (calc) N % SATURATION 27 16-45 % (calc) N LIPID PANEL Reviewed date:05/17/2024 01:39:59 PM Interpretation: Performing Lab:[facility], [place], [address] Ebenezer Banks MD Notes/Report: Reference range: <100 Desirable range <100 mg/dL for primary prevention; <70 mg/dL for patients with CHD or diabetic patients with > or = 2 CHD risk factors. LDL-C is now calculated using the Albina calculation, which is a validated novel method providing better accuracy than the Friedewald equation in the estimation of LDL-C. Emeka CERDA et al. YANNICK. 2013;310(19): 6394-7947 (http://education.Flexuspine.Crowdnetic/faq/JXM076) For patients with diabetes plus 1 major [...] Reviewed date:05/17/2024 01:59:57 PM Interpretation: Performing Lab:[place], [facility], [address] [place], [address] Ebenezer Banks MD Notes/Report: T4, FREE 1.2 0.8-1.8 ng/dL N TSH Reviewed date:05/17/2024 02:00:05 PM Interpretation: Performing Lab:[facility], [facility], [address] [facility], [place], [address] Ebenezer Banks MD Notes/Report: Reference Range > or = 20 Years 0.40-4.50 Ranges First trimester 0.26-2.66 Second trimester 0.55-2.73 Third trimester 0.43-2.91 TSH 1.39 N THYROID PEROXIDASE ANTIBODIE S Reviewed date:05/17/2024 02:05:36 PM Interpretation: Performing Lab:[facility], [facility], [address] [place] [address], [address] Paresh Lee Notes/Report: THYROID PEROXIDASE ANTIBODIES <1 <9 IU/mL TESTOSTERONE, FREE (DIALYSIS ) AND TOTAL,MS Reviewed date:05/17/2024 01:57:16 PM Interpretation: Performing Lab:[facility], [facility], [address] [place] [address], [address], [place], [address] Chanel Mcfadden MD,PhD Notes/Report: For additional information, please refer to https://education.Anchor ID[employer]faq/QZF833 (This link is being provided for informational/educational purposes only.) (Note) This test was developed and its analytical performance characteristics have been determined by [employer]. It has not been cleared or approved by the FDA. This assay has been validated pursuant to the CLIA regulations and is used for clinical purposes. (Note) This test was developed and its analytical performance characteristics have been determined by [employer]. It has not been cleared or approved by the FDA. This assay has been validated pursuant to the CLIA regulations and is used for clinical purposes. 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 Problem Hyperglycemia due to type 2 diabetes mellitus (364383532032589) Type 2 diabetes mellitus with hyperglycemia (E11.65) Active confirmed Problem Vitamin D deficiency (31864023) Vitamin D deficiency, unspecified (E55.9) Active confirmed Problem Obesity (785501430) Obesity, unspecified (E66.9) Active confirmed Problem Irregular menstruation (24485111) Irregular menstruation, unspecified (N92.6) Active confirmed Vital Signs Heart Rate 88 /min 11/14/2024 Oximetry 97 % 11/14/2024 Blood pressure diastolic 65 mm Hg 11/14/2024 Weight-kg 76.48 kg 11/14/2024 Height 66 in 11/14/2024 Blood pressure systolic 94 mm Hg 11/14/2024 Weight 168.6 lbs 11/14/2024 BMI 27.21 kg/m2 11/14/2024 Encounters Encounter Location Date Provider Diagnosis AMMO Dr. Fuller [address] [place] [phone] 05/08/2024 Cici Fuller Type 2 diabetes elle itus with hyperglycemia E11.65 ; Other fatigue R53.83 ; Obesity, unspecified E66.9 ; Encounter for screening for lipoid disorders Z13.220 ; Irregular menstruation, unspecified N92.6 ; Vitamin D deficiency, unspecified E55.9 and Nontoxic goiter, unspecified E04.[address] Fuller [address] [place] [phone] 06/09/2024 Cici Shipman 2 diabetes elle itus with hyperglycemia E11.65 ; Obesity, unspecified E66.9 ; Irregular menstruation, unspecified N92.6 ; Vitamin D deficiency, unspecified E55.9 and Dietary counseling and surveillance Z71.[address] Fuller [address] [place] [address] 11/14/2024 Cici Fuller Pre-existing type 2 diabetes mellitus during in first trimester O24.111 ; Dietary counseling and surveillance Z71.3 and High-risk in first trimester O09.[address] [address] 08/15/2024 Cici Fuller Type 2 diabetes elle itus with hyperglycemia E11.[address] [address] 08/26/[address] Fuller [address] [place] [phone] 12/01/2024 Cici Fuller Assessments Encounter Date Diagnosis (ICD Code) Assessment Notes Treatment Notes Treatment Clinical Notes Section Notes 08/15/2024 Type 2 diabetes mellitus with hyperglycemia [...] during in first trimester (ICD-10 - O24.111) 06/09/2024 Type 2 diabetes mellitus with hyperglycemia (ICD-10 - E11.65) 05/08/2024 Type 2 diabetes mellitus with hyperglycemia (ICD-10 - E11.65) 05/08/2024 Other fatigue (ICD-10 - R53.83) 05/08/2024 Obesity, unspecified (ICD-10 - E66.9) 11/14/2024 High-risk in first trimester (ICD-10 - O09.91) 06/09/2024 Obesity, unspecified (ICD-10 - E66.9) 06/09/2024 Irregular menstruation, unspecified (ICD-10 - N92.6) 05/08/2024 Encounter for screening for lipoid disorders [...] EpiPen if needed. Consider referral to an car scrubber for further evaluation and management. 5. Insomnia:- [...] evaluation.- Plan: Provide options for imaging centers ([place], [facility], or [place]). Schedule imaging appointments and follow up with results. Spent 45 minutes preparing to see the patient (ex review of tests/chart), obtaining and / or reviewing separately obtained history, performing a medically appropriate examination and/or evaluation, counseling and educating the patient/family/home care rn, ordering medications, tests, or procedures, referring and communicating with other health health care attorney, documenting clinical information in the electronic or other health record, independently interpreting results and communicating results to the patient/family/home care rn and care coordinating patient plan. Patient alert [...] D deficiency- Low vitamin D levelsPlan:- Recommend [id number] vitamin D supplement once daily 6. Iron [...] evaluation, counseling and educating the patient/family/home care rn, ordering medications, tests, or procedures, referring and communicating with other health health care attorney, documenting clinical information in the electronic or other health record, independently interpreting results and communicating results to the patient/family/home care rn and care coordinating patient plan. Patient alert [...] if fasting blood glucose is not consistently [id number] mg/dL - Humalog to be taken 5-10 minutes before meals, dosage to be determined based on pre-meal blood glucose levels- Discontinue current injectable medication for obesity- Continue metformin as tolerated, pending OB evaluation- Prescribe Gvoke for hypoglycemia management (blood glucose over50 mg/dL)- Offer Baqsimi as an alternative nasal option for hypoglycemia- Instruct on blood glucose monitoring: - Check fasting blood glucose daily, target [id number] mg/dL - Check postprandial blood glucose, target [id number] mg/dL- Provide dietary counseling: - Avoid processed foods, breads, pastries, and pasta - Encourage fruits, vegetables, salads, lean meats, beans, and cheese - Advise on food safety: warm lunch meats, avoid certain cheeses and raw fish- Continue vitamins- Follow up in 4-6 weeks- Refer to high-risk obstetric care at [facility] 2. Medication Management- Continue metformin as tolerated- [...] evaluation, counseling and educating the patient/family/home care rn, ordering medications, tests, or procedures, referring and communicating with other health health care attorney, documenting clinical information in the electronic or other health record, independently interpreting results and communicating results to the patient/family/home care rn and care coordinating patient plan. Patient alert [...] Date Coverage End Date Medicare Part B [facility] [address] [address] [place] [address] [id number] Violet Lomeli Self - patient is the insured [facility] [place] [facility] [address] [place] [address] [id number] Violet Lomeli Self - patient is the insured Medical (General) History Surgical History Surgery Date(Month/Year) 3 BACK SURGRIES
--- OUTSIDE RECORDS SUMMARY | 2025-01-20 02:36 | XMS_ITS | Clinical Summary ---
Author Organization [facility] Address [address] [place] [address] Care Team Providers Care Oracle Erp Developer Name Role Phone Sukhwinder Madden MD Primary [...] Cartridge) 30 gauge combo pack 30 each electrical electronics engineers before breakfast 3 each 3 3 Active [...] 08/04/2021 Assessment & Plan (05/31/2023 4:15 PM SCAN COORDINATOR): Hba1c was Lab Results Component Value [...] on file Legal Sex Female 12:00 PM SCAN COORDINATOR Gender Identity Not on file Sexual Orientation Not on file Obstetrics History Last Filed Vital Signs Vital Sign Reading Time Taken Comments Blood Pressure 120/70 05/31/2023 2:17 PM SCAN COORDINATOR Pulse 105 05/31/2023 2:17 PM SCAN COORDINATOR Temperature - - Respiratory Rate 18 05/31/2023 2:17 PM SCAN COORDINATOR Oxygen Saturation - - Inhaled Oxygen Concentration - - Weight 80.7 kg (178 lb) 05/31/2023 2:17 PM SCAN COORDINATOR Height 166.4 cm (5' 5.5) 05/31/2023 2:17 PM SCAN COORDINATOR Body Mass Index 29.17 05/31/2023 2:17 PM SCAN COORDINATOR Plan of Treatment Health Maintenance Due [...] HEMOGLOBIN A1C Routine 05/31/2023 2 :17 PM SCAN COORDINATOR Type 2 diabetes mellitus with hyperglycemia, with long-term current use of insulin (HCC) from Last 3 Months or Most Recently Relevant to Health Maintenance Results * (ABNORMAL) POCT hemoglobin A1c (05/31/2023 2:17 PM SCAN COORDINATOR) Hemoglobin A1C, POC 7.5 % Blood spot 05/31/2023 2:17 PM SCAN COORDINATOR Marco Antonio Geller MD POINT OF CARE TEST ORDERABLES Fi nal Result from Last 3 Months or Most Recently Relevant to Health Maintenance Insurance [employer]ICARE [employer] Care Teams Oracle Erp Developer Relationship Specialty Start Date End Date Sukhwinder Madden MD [address] [place] [address] PCP - General Internal Medicine 04/27/22
--- OUTSIDE RECORDS SUMMARY | 2025-01-20 02:36 | XMS_ITS | Clinical Summary ---
Author Organization [facility] Address [address] [place] [address] Care Team Providers Care Editor Publications Name Role Phone Unavailable Primary Care Provider Unavailabl e Source Comments [facility],non-owned Affiliates and Associated Physician Practices is amultiple site organization consisting of ambulatory clinics and hospital sitesin [place], [place], [place] and [place]. This disclosure is being madepursuant to the Care Everywhere program and may not contain all information available regarding this patient. Last updated 18.[facility] Allergies Active Allergy Reactions Criticality Noted Date [...] Patient not taking.Reason: Patient adjusted (Unable to strip picker from pharmacy), Reported on 01/19/2025 budesonide-for moterol [...] on 01/19/2025 Insulin Pen Needle (TechLite Pen [place]) 32G X 4 MM MISCIndication s: complicated by pre-existing type 2 diabetes in first trimester ([facility]) Use 1 Each 3 times daily 100 Each 5 Active Blood Glucose Monitoring Suppl (OneToInvestCloud Verio Flex System) w/Device KITIndications : complicated by pre-existing type 2 diabetes in first trimester ([facility]) Use 1 kit as directed 1 kit Active blood glucose (OneTouch Verio) test stripIndicatio ns: complicated by pre-existing type 2 diabetes in first trimester ([facility]) Please supply strips to match meter best covered by insurance for testing 3 times per day 100 strip Active Lancets (ONETOUCH DELICA PLUS 33G EXTRA FINE LANCET)Indicat ions: complicated by pre-existing type 2 diabetes in first trimester ([facility]) Please supply lancets to match [...] Description 01/19/2025 9:30 AM CDT Hospital Encounter [facility]UATION UNIT [address] [place] [address]. [address] [place] [id number] Anna Fry, TOOL DESIGNER APPRENTICE-COUNSELOR EDUCATION PROFESSOR Discharge Disposition: Home or Self Care 01/19/2025 9:30 AM CDT Hospital Encounter [facility] [address] [place] [address] [place] [address] Anna Fry, TOOL DESIGNER APPRENTICE-COUNSELOR EDUCATION PROFESSOR Discharge Disposition: Home or Self Care 01/19/2025 Travel 01/12/2025 8:30 AM CDT Hospital Encounter [facility] [address] [place] [address]. [address] [place] [address] Sourav Jaimes MD Wendel, Michael, MD Discharge Disposition: Home or Self Care 01/12/2025 8:30 AM CDT Hospital Encounter [facility]ATION UNIT [address] [place] [address] [address] [place] [address] Sourav Jaimes MD Wendel, Michael, MD Discharge Disposition: Home or Self Care 01/12/2025 7:30 AM CDT - 01/12/2025 8:29 AM CDT Hospital Encounter [facility]ATION UNIT [address] [place] [id number] Souarv Jaimes MD Discharge Disposition: Home or Self Care 12/30/2024 Travel 12/29/2024 8:12 AM CDT - 12/29/2024 11:59 PM CDT Hospital Encounter [facility]ATION UNIT [address] [place] [address] Anna Alvarado MD Discharge Disposition: Home or Self Care 12/29/2024 8:12 AM CDT - 12/29/2024 11:59 PM CDT Hospital Encounter [facility]ATION UNIT [address] [place] [address] Anna Alvarado MD Discharge Disposition: Home or Self Care 12/29/2024 Travel 12/22/2024 8:10 AM CDT - 12/22/2024 11:59 PM CDT Hospital Encounter [facility] MAT[facility]/ EVALUATION UNIT [address] [place] [phone] Hitesh Calderon MD Discharge Disposition: Home or Self Care 12/22/2024 8:10 AM CDT Hospital Encounter [facility] EV[facility]UATION UNIT [address] [place] [address] Hitesh Calderon MD Discharge Disposition: Home or Self Care 12/22/2024 Travel 12/15/2024 7:32 AM CDT - 12/15/2024 11:59 PM CDT Hospital Encounter [facility]ATION UNIT [address] [place] [address] Sourav Jaimes MD Discharge Disposition: Home or Self Care 12/15/2024 7:31 AM CDT Hospital Encounter [facility]ATION UNIT [address] [place] [address] Sourav Jaimes MD Discharge Disposition: Home or Self Care 12/09/2024 Orders Only [facility]/ EV[facility]ATION UNIT [address] [place] [address] Twyla Duggan, DRISS/LD complicated by pre-existing type 2 diabetes in first trimester ([facility]) 12/08/2024 10:59 AM CDT - 12/08/2024 11:59 PM CDT Hospital Encounter [facility] UNIT [address] [place] [address] Sourav Jaimes MD Discharge Disposition: Home or Self Care 12/08/2024 10:59 AM CDT - 12/08/2024 11:59 PM CDT Hospital Encounter [facility] MATERNAL/ EVALUATION UNIT [address] [place] [address] Sourav Jaimes MD Discharge Disposition: Home or Self Care 12/05/2024 Telephone [facility]ATION UNIT [address] [place] [address] Ck Bansal MD Follow-up 12/05/2024 Orders Only [facility]IT [address] [place] [address] Glenna Whiteside RN 12/03/2024 Results Follow-Up [facility]IT [address] [place] [address] Castillo Shah MD 12/03/2024 Orders Only [facility] PHYS OB [address] [place] [address] Castillo Shah MD 12/01/2024 10:00 AM CDT Hospital Encounter [facility]NAL[facility] EVALUATION UNIT [address] [place] [address] Sourav Jaimes MD Discharge Disposition: Home or Self Care 12/01/2024 10:00 AM CDT Hospital Encounter [facility]NAL/ EV[facility]ATION UNIT [address] [place] [address] Sourav Jaimes MD Discharge Disposition: Home or Self Care 12/01/2024 10:00 AM CDT Hospital Encounter [facility] [address] [place] [phone] Sourav Jaimes MD Discharge Disposition: Home or Self Care 12/01/2024 Travel 11/28/2024 Orders Only [facility]ATION UNIT [address] [place] [address] Garrett Ramirez PharmD 11/27/2024 Results Follow-Up [facility] UNIT [address] [place] [address] Ck Bansal MD 11/27/2024 Telephone [facility] UNIT [address] [place] [address] Ck Bansal MD Results 11/24/2024 8:14 AM CDT - 11/24/2024 11:59 PM CDT Hospital Encounter [facility]/ EV[facility]UATION UNIT [address] [place] [address] Anna Alvarado MD Discharge Disposition: Home or Self Care 11/24/2024 8:12 AM CDT - 11/24/2024 8:13 AM CDT Hospital Encounter [facility] EV[facility]UATION UNIT [address] [place] [address] Anna Alvarado MD Discharge Disposition: Home or Self Care 11/24/2024 8:11 AM CDT Hospital Encounter [facility]ATION UNIT [address] [place] [address] Anna Alvarado MD Discharge Disposition: Home or Self Care 11/24/2024 8:09 AM CDT - 11/24/2024 8:10 AM CDT Hospital Encounter [facility]/ EV[facility]UATION UNIT [address] [place] [address] Harpreet Alvares DO Discharge Disposition: Home or Self Care 11/24/2024 Travel 11/17/2024 Telephone [facility]ATION UNIT [address] [place] [address] Glenna Snell, revenue analyst 11/14/2024 Telephone [facility] UNIT [address] [place] [address] Alma Temple RN Referral from Last 3 Months Immunizations Immunization Administration [...] care, and heating? Not very hard 11/24/2024 [facility] Occupat ional Health - Occupational Stress [...] things needed for daily living? No 11/24/2024 [place] Depression Scale Answer Date Recorded [place] Depression Scale Total 2 11/24/2024 The thought [...] in the past 12 m [facility], were you homeless or living in a fdc (including now)? No 11/24/2024 Estimated Date of Delivery Comme nts Yes 06/29/2025 Based on Ultraso und Sex and Gender Information Value Date Recorded Sex Assigned at Not on file Legal Sex Female 5:45 AM MANAGER RETAIL Gender Identity Not on file Sexual Orientation [...] Info) Description 01/26/2025 9:00 AM CDT Appointment [facility]/ EV[facility]UATION UNIT [address] [place] [address] 01/26/2025 9:00 AM CDT Appointment [facility]ATION UNIT [address] [place] [address] 02/09/2025 7:30 AM CDT Appointment [facility]ATION UNIT [address] [place] [address] 03/16/2025 1:00 PM CDT Appointment [facility] [address] [place] [address] Sourav Jaimes MD [address] [facility] [address] [place] [address] 03/24/2025 1:30 PM CDT Office Visit [facility] - Ophthalmology [address] [facility], [place] [phone] Pj Cheney, MU [address] [place] [address] Health Maintenance Due Date Last Done Comments [...] Completed 02/26/2018, 12/21/2017 HPV VACCINE Completed 03/11/2021, 04/2 06/2020, 09/06/2020 PNEUMOCOCCAL VACCINE Completed 12/28/2021, 2001, 2001, [...] 2 diabetes mellitus without complication, unspecified whether longwall machine operator helper insulin use (HCC) URINALYSIS REFLEX MICROSCOPIC REFLEX CULTURE STAT 12/01/2024 12:24 PM CDT Type 2 diabetes mellitus without complication, unspecified whether longwall machine operator helper insulin use (HCC) COMPREHENSIVE METABOLIC PANEL STAT 12/01/2024 12:24 PM CDT Type 2 diabetes mellitus without complication, unspecified whether snf insulin use (HCC) PROTEIN CREATININE RATIO URINE RANDOM PNL STAT 12/01/2024 12:24 PM CDT Type 2 diabetes mellitus without complication, unspecified whether longwall machine operator helper insulin use (HCC) CULTURE URINE STAT 12/01/2024 12:24 PM CDT Type 2 diabetes mellitus without complication, unspecified whether longwall machine operator helper insulin use (HCC) PROTEIN URINE TIMED QUANTITATIVE [...] Months Results * (ABNORMAL) URINALYSIS - POCT (IP) BEAKER INTERFACE (01/19/2025 9:48 AM CDT) Only the most recent of8 resultswithin the time period is included. Color UA POCT Yellow Straw, Yellow, Dark Yellow, Light Yellow 01/19/2025 9:50 AM CDT [facility] Clarity UA POCT Clear Clear 9:50 AM CDT [facility] Specific Crapo UA POCT 1.020 1.005 - 1.030 01/19/2025 9:50 AM CDT [facility] pH UA POCT 6.0 5.0 - 8.0 pH 01/19/2025 9:50 AM CDT [facility] Protein UA POCT Negative Negative 9:50 AM CDT [facility] Blood UA POCT Negative Negative 01/19/2025 9:50 AM CDT [facility] Leukocyte UA POCT Negative Negative 01/19/2025 9:50 AM CDT [facility] Nitrite UA POCT Negative Negative 9:50 AM CDT [facility] Glucose UA POCT 1+(A) Negative 9:50 AM CDT [facility] Ketone UA POCT Negative Negative 01/19/2025 9:50 AM CDT [facility] Bilirubin UA POCT Negative Negative 01/19/2025 9:50 AM CDT [facility] Urobilinogen UA POCT 0.2 0.1 - 1.0 EU/dL 01/19/2025 9:50 AM CDT [facility] Urine URINE / Unknown 01/19/2025 9 :48 AM CDT 01/19/2025 9:50 AM CDT us Anna Fry TOOL DESIGNER APPRENTICE-COUNSELOR EDUCATION PROFESSOR LAB - POINT OF CARE ORDERABLES Final Result [facility] [address] [place] [address] * (ABNORMAL) GLUCOSE - POINT OF CARE (01/19/2025 9:43 AM CDT) Only the most recent of2 resultswithin the time period is included. Pathologist [facility] Glucose WB/POC 191(H) 70 - 99 mg/dL 01/19/2025 9:52 AM CDT [facility] Specimen Type Arterial/C apillary 01/19/2025 9:52 AM CDT [facility] Blood BLOOD SPECIMEN / Unknown 01/19/2025 9:43 AM CDT 01/19/2025 9:52 AM CDT Anna Fry APRN-[facility] LAB - POINT OF CARE ORDERABLES Final Result Performing Organization Address City/State/[facility] Co de Phone Number [facility] [address] [place] [address] * Sonogram - Complete (01/12/2025 9:19 AM CDT) Only the most recent of2 resultswithin the time period is included. [facility] Linked Results Indication ======== anatomy evaluation Pre-existing [...] 0 lb 5 oz EFW by Hadlock ([id number]) Head / Face / Neck Biometry: Nasal [...] Z36.3: Encounter for screening for malformations Procedures 50229: [place] Preg Uterus >14 weeks [facility] PACS Anatomical Region Laterality Modality Other 01/12/2025 9:19 AM CDT Sourav Jaimes MD [facility] ORDERABLES Edited Result - Final * (ABNORMAL) URINALYSIS REFLEX MICROSCOPIC REFLEX CULTURE (12/01/2024 12:24 PM CDT) Color UA Yellow Yellow, Straw 12/01/2024 1:34 PM CDT [facility] Clarity UA Clear Clear 12/01/2024 1:34 PM CDT [facility] Glucose UA Normal Normal 12/01/2024 1:34 PM CDT [facility] Bilirubin UA Negative Negative 12/01/2024 1:34 PM CDT [facility] Ketone UA Negative Negative 12/01/2024 1:34 PM CDT [facility] Specific Crapo UA 1.024 1.005 - 1.030 12/01/2024 1:34 PM CDT [facility] Blood UA Negative Negative 12/01/2024 1:34 PM CDT [facility] pH UA 6.5 5.0 - 8.0 12/01/2024 1:34 PM CDT [facility] Protein UA Negative Negative 12/01/2024 1:34 PM CDT [facility] Urobilinogen UA Normal Normal mg/dL 12/01/2024 1:34 PM CDT [facility] Nitrite UA Negative Negative 12/01/2024 1:34 PM CDT [facility] Leukocyte Esterase UA 25 GOPAL/uL(A) Negative 12/01/2024 1:34 PM CDT [facility] RBC UA 3-5 0 - 5 # /hpf 12/01/2024 1:34 PM CDT [facility] WBC UA 0-5 0 - 5 # /hpf 12/01/2024 1:34 PM CDT [facility] Bacteria UA Trace(A) None Seen 12/01/2024 1:34 PM CDT [facility] Squamous Epithelial Cells 3-5 0 - 5 /hpf 12/01/2024 1:34 PM CDT [facility] Mucus UA 2+ /LPF 12/01/2024 1:34 PM CDT [facility] Hyaline Casts 0-2 0 - 2 /LPF 12/01/2024 1:34 PM CDT [facility] Reflex Status Culture to follow 12/01/2024 1:34 PM CDT [facility] Urine URINE SPECIMEN OBTAINED BY CLEAN CATCH PROCEDURE / Unknown Collection / Unknown 12/01/2024 12:24 PM CDT 12/01/2024 1:24 PM CDT Narrative [facility] - 12/01/2024 1:34 PM CDT Sourav Jaimes MD LAB - URINALYSIS ORDERABLES Fin al Result [facility] [address] [place], [place] [id number] * (ABNORMAL) CULTURE URINE (12/01/2024 12:24 PM CDT) Only the most recent of2 resultswithin the time period is included. Culture Urine 10,000-50,000 CFU/mL Streptococcus agalactiae (Group B)(A) 12/03/2024 4:20 AM CDT [facility] Culture Urine <10,000 CFU/mL urogenital khloe 12/03/2024 4:20 AM CDT [facility] Urine URINE SPECIMEN OBTAINED BY CLEAN CATCH PROCEDURE / Unknown Collection / Unknown 12/01/2024 12:24 PM CDT 12/01/2024 1:24 PM CDT Narrative [facility] - 12/03/2024 4:20 AM CDT Susceptibility testing of penicillin, other beta-lactam antibiotics, and vancomycin is not necessary for beta-hemolytic streptococci groups A,B,C and G because resistant strains have not been recognized. Sourav Jaimes MD LAB - MICROBIOLOGY ORDERABLES F inal Result [facility] [address] [place] [address], [facility] [phone] * (ABNORMAL) CBC W/O DIFFERENTIAL (12/01/2024 12:24 PM CDT) [facility] WBC 9.4 4.0 - 10.7 x10E9/L 12/01/2024 2:46 PM CDT [facility] RBC Count 4.09 3.90 - 5.20 x10E12/L 12/01/2024 2:46 PM CDT [facility] Hemoglobin 11.7(L) 11.9 - 15.8 g/dL 12/01/2024 2:46 PM CDT [facility] Hematocrit 36.5 34.8 - 46.1 % 12/01/2024 2:46 PM CDT [facility] MCV 89.2 80.0 - 98.0 fL 12/01/2024 2:46 PM CDT [facility] MCH 28.6 26.7 - 33.6 pg 12/01/2024 2:46 PM CDT [facility] MCHC 32.1 31.7 - 36.3 g/dL 12/01/2024 2:46 PM CDT [facility] RDW-CV 12.8 11.3 - 14.8 % 12/01/2024 2:46 PM CDT [facility] Platelet Count 283 150 - 420 x10E9/L 12/01/2024 2:46 PM CDT [facility] MPV 10.0 7.8 - 11.4 fL 12/01/2024 2:46 PM CDT [facility] Blood BLOOD SPECIMEN / Unknown Venipuncture / Unknown 12/01/2024 12:24 PM CDT 12/01/2024 1:58 PM CDT Sourav Jaimes MD LAB - HEMATOLOGY ORDERABLES Fin al Result [facility] [address] [place] [address] * (ABNORMAL) COMPREHENSIVE METABOLIC PANEL (12/01/2024 12:24 PM CDT) [facility] Glucose 88 70 - 99 mg/dL 12/01/2024 2:30 PM CDT [facility] Sodium 137 136 - 145 mmol/L 12/01/2024 2:30 PM CDT [facility] Potassium 4.4 3.5 - 5.1 mmol/L 12/01/2024 2:30 PM CDT [facility] Chloride 109(H) 98 - 107 mmol/L 12/01/2024 2:30 PM CDT [facility] CO2 19(L) 22 - 29 mmol/L 12/01/2024 2:30 PM CDT [facility] Calcium 9.4 8.4 - 10.4 mg/dL 12/01/2024 2:30 PM CDT [facility] Anion Gap 9 6 - 16 mmol/L 12/01/2024 2:30 PM CDT [facility] BUN 7 5.3 - 18.7 mg/dL 12/01/2024 2:30 PM CDT [facility] Creatinine 0.57 0.57 - 1.11 mg/dL 12/01/2024 2:30 PM CDT [facility] Alkaline Phosphatase 53 40 - 150 U/L 12/01/2024 2:30 PM CDT [facility] ALT 10 6 - 57 U/L 12/01/2024 2:30 PM CDT [facility] AST 28 10 - 48 U/L 12/01/2024 2:30 PM CDT [facility] Protein Total 6.7 6.4 - 8.3 gm/dL 12/01/2024 2:30 PM CDT [facility] Albumin 4.1 3.1 - 4.5 gm/dL 12/01/2024 2:30 PM CDT [facility] Bilirubin Total 0.3 0.2 - 1.2 mg/dL 12/01/2024 2:30 PM CDT [facility] eGFR by CKD-EPI >90 >=90 mL/min/1.7 3 m2 12/01/2024 2:30 PM CDT [facility] Blood BLOOD SPECIMEN / Unknown Venipuncture / Unknown 12/01/2024 12:24 PM CDT 12/01/2024 2:18 PM CDT Sourav Jaimes MD LAB - CHEMISTRY ORDERABLES Yanet l Result Performing Organization Address [facility] Co de Phone Number [facility] [address] [place], [place] [id number] * PROTEIN CREATININE RATIO URINE RANDOM PNL (12/01/2024 12:24 PM CDT) Protein Urine 10.4 <11.9 mg/dL 12/01/2024 1:51 PM CDT [facility] Creatinine Urine 137.02 mg/dL 12/01/2024 1:51 PM CDT [facility] Protein/Creatin ine Ratio Urine 0.08 12/01/2024 1:51 PM CDT [facility] Urine URINE SPECIMEN OBTAINED BY CLEAN CATCH PROCEDURE / Unknown Collection / Unknown 12/01/2024 12:24 PM CDT 12/01/2024 1:24 PM CDT Sourav Jaimes MD LAB - URINE CHEMISTRY ORDERABLE S Final Result Performing Organization Address [facility] Phone Number [facility] [address] [place] [address] * PROTEIN URINE TIMED QUANTITATIVE (12/01/2024 10:13 AM CDT) Volume 24 Hour Urine 2,000 mL 12/01/2024 11:56 AM CDT [facility] Collection Time Hours 24 hrs 12/01/2024 11:56 AM CDT [facility] Protein 24 Hour Urine 12/01/2024 11:56 AM CDT [facility] Comment:Unable to calculate due to limited levels of measurable protein. Protein Urine <6.8 <11.9 mg/dL 12/01/2024 11:56 AM CDT [facility] Urine TIMED URINE SPECIMEN / Unknown Timed Urine Volume Measurement / Unknown 12/01/2024 10:13 AM CDT 12/01/2024 11:40 AM CDT Sourav Jaimes MD LAB - URINE CHEMISTRY ORDERABLE S Final Result Performing Organization Address [facility] Co de Phone Number [facility] [address] [place] [address] * ANEUPLOIDY SCREENING (12/01/2024) Trisomy 21 Low [...] IRA NEGATIVE NEGATIVE 11/25/2024 7:30 AM CDT [facility] Microbiology ENTIRE ENDOCERVIX / Unknown Collection / Unknown 11/24/2024 11:20 AM CDT 11/24/2024 12:00 PM CDT Narrative [facility] - 11/25/2024 7:30 AM CDT This test performed by Qualitative real-time Polymerase Chain Reaction (PCR). us Anna Alvarado MD LAB - MICROBIOL OGY ORDERABLES Final Result [facility] [address] [place], [place] [address] [phone] * CHLAMYDIA AND N. GONORRHOEAE IRA (11/24/2024 11:20 AM CDT) Chlamydia by IRA NEGATIVE NEGATIVE 11/25/2024 7:28 AM CDT [facility] Neisseria gonorrhoeae IRA NEGATIVE NEGATIVE 11/25/2024 7:28 AM CDT [facility] Microbiology ENTIRE ENDOCERVIX / Unknown Collection / Unknown 11/24/2024 11:20 AM CDT 11/24/2024 12:00 PM CDT Narrative [facility] - 11/25/2024 7:28 AM CDT This test performed by Qualitative real-time Polymerase Chain Reaction (PCR). us Anna Alvarado MD LAB - MICROBIOL OGY ORDERABLES Final Result [facility] [address] [place] [address], [facility] [phone] * PAP IG LB RFLX HPV APTIMA ASCU (11/24/2024 11:20 AM CDT) Diagnosis Comment 11/27/2024 4:11 PM CDT [facility] ([facility]) Comment:NEGATIVE FOR INTRAEP ITHELIAL LESION OR MALIGNANCY. Specimen Adequacy Comment 025 4:11 PM CDT [facility] ([facility]) Comment: Satisfactory for evaluation. Endocervical and/or squamous metaplastic cells (endocervical component) are present. Performed by Comment 11/27/2024 4:11 PM CDT [facility] ([facility]) Comment:Katya Ramsay, Campaign Management Senior Manager (ASCP) Comment . 11/27/2024 4:11 PM CDT [facility] ([facility]) Note Comment 11/27/2024 4:11 PM CDT [facility] ([facility]) Comment: The Pap smear is a screening test designed to aid in the detection of premalignant and malignant conditions of the uterine cervix. It is not a diagnostic procedure and should not be used as the sole means of detecting cervical cancer. Both false-positive and false-negative reports do occur. IGLBP CPT Code Automation Comment 11/27/2024 4:11 PM CDT [facility] ([facility]) Comment: This liquid based ThinPrep(R) pap test was screened with the use of an image guided system. Note Comment 11/27/2024 4:11 PM CDT [facility] ([facility]) Comment: The HPV DNA reflex criteria were not met with this specimen result therefore, no HPV testing was performed. Pathology/Cytolo gy PART OF UTERINE CERVIX / Unknown Collection / Unknown 11/24/2024 11:20 AM CDT 11/24/2024 12:00 PM CDT Narrative [facility] ([facility]) - 11/27/2024 4:11 PM CDT Performed at: 01 - [facility] [address] [place], [place] [id number] Laboratory Scientist: Eliceo Miranda MD, Phone: [phone] Performed at: 02 - [facility] [id number] Laboratory Scientist: Ana Weems MD, Phone: [phone] Specimen Comment: No. of containers..01 ThinPrep Vial us Anna Alvarado MD LAB - PATHOLOGY /CYTOLOGY ORDERABLES Final Result [facility] ([facility]) [address] [place] [address] * URINE DRUG SCREEN IMMUNOASSAY (11/24/2024 11:20 AM CDT) Pathologist [facility] Amphetamines Screen Urine Not detected Not detected 11/24/2024 12:47 PM CDT [facility] Barbiturates Screen Urine Not detected Not detected 11/24/2024 12:47 PM CDT [facility] Benzodiazepines Screen Urine Not detected Not detected 11/24/2024 12:47 PM CDT [facility] Cannabinoids Screen Urine Not detected Not detected 11/24/2024 12:47 PM CDT [facility] Cocaine Screen Urine Not detected Not detected 11/24/2024 12:47 PM CDT [facility] Fentanyl Urine Not detected Not detected 11/24/2024 12:47 PM CDT [facility] Methadone Screen Urine Not detected Not detected 11/24/2024 12:47 PM CDT [facility] Opiate Screen Urine Not detected Not detected 11/24/2024 12:47 PM CDT [facility] Phencyclidine Screen Urine Not detected Not detected 11/24/2024 12:47 PM CDT [facility] Urine URINE / Unknown Collection / Unknown 11/24/2024 11:20 AM CDT 11/24/2024 12:00 PM CDT Narrative [facility] - 11/24/2024 12:47 [...] - URINE MARTÍN ALICIA ORDERABLES Final Result [facility] [address] [place] [address] * HEMOGLOBINOPATHY FRACTIONATION CASCADE (11/24/2024 11:19 AM CDT) Hemoglobin F 0.0 0.0 - 2.0 % 11/26/2024 3:10 PM CDT [facility] ([facility]) Hemoglobin A 97.2 96.4 - 98.8 % 11/26/2024 3:10 PM CDT [facility] ([facility]) Hemoglobin A2 2.8 1.8 - 3.2 % 11/26/2024 3:10 PM CDT [facility] ([facility]) Hemoglobin S 0.0 0.0 % 11/26/2024 3:10 PM CDT [facility] ([facility]) Interpretation Comment 11/26/2024 3:10 PM CDT [facility] ([facility]) Comment: Normal hemoglobin present; no hemoglobin variant or beta thalassemia identified. Note: Alpha thalassemia may not be detected by the Hgb Fractionation [place] panel. If alpha thalassemia is suspected, [facility] offers Alpha-Thalassemia DNA Analysis (#[id number]). Blood BLOOD SPECIMEN / Unknown Venipuncture / Unknown 11/24/2024 11:19 AM CDT 11/24/2024 11:58 AM CDT Narrative [facility] ([facility]) - 11/26/2024 3:10 PM CDT Performed at: [address] [place] [id number] Laboratory Scientist: Lev Velasquez PhD, Phone: [phone] us Anna Alvarado MD LAB - CHEMISTRY ORDERABLES Final Result [facility] ([facility]) [address] [place] [address] * CYSTIC FIBROSIS (CF) 97 VARIANTS (11/24/2024 11:19 AM CDT) Ethnicity Comment 12/03/2024 3:10 PM CDT [facility] ([facility]) Comment:Not Provided Specimen Type Comment 12/03/2024 3:10 PM CDT [facility] ([facility]) Comment:Whole Blood Indication Comment 12/03/2024 3:10 PM CDT [facility] ([facility]) Comment:Carrier Test / Scree dani Result Comment 12/03/2024 3:10 PM CDT [facility] ([facility]) Comment:NEGATIVE Interpretation Comment 12/03/2024 3:10 PM CDT [facility] ([facility]) Comment: Negative Results Disorders (Gene) Result Interpretation Cystic fibrosis NEGATIVE This result reduces, CFTR NM_000492.4 but does not eliminate, the risk to be a carrier. Risk: At reduced risk for an affected . For ethnic-specific risk revisions see Information Table. Recommendations Comment 3:10 PM CDT [facility] ([facility]) Comment: If the above result is positive, genetic counseling is recommended to discuss the potential clinical and/or reproductive implications, as well as recommendations for testing family members and, when applicable, this individual's partner. Genetic counseling services are available. To access [facility] Genetic Counselors please visit [email or web address] or call [phone]-[phone] ([phone]). Additional Clinical Info Comment 12/03/2024 3:10 PM CDT [facility] ([facility]) Comment: Cystic fibrosis (CF) [...] affected individuals, lung transplantation may be indicated. (PMID:[id number]). Comments Comment 12/03/2024 3:10 PM [facility] ([facility]) Comment: This interpretation is based on the clinical information provided and the current understanding of the molecular genetics of the disorder(s) tested. Information about the disorder(s) tested is available at [email or web address]. Methods and Limitations Comment 12/03/2024 3:10 PM CDT [employer] ([facility]) Comment: Next-generation Sequencing (NGS): Genomic regions of interest in the CFTR gene are selected using the [employer](Rollad hybridization capture method and sequenced via the [employer] NGS platform. Sequencing reads are aligned to the human genome reference GRCh37/hg19 build. Regions of interest include genomic regions encompassing targeted variants. Analytical sensitivity is estimated to be >99% for single nucleotide variants and small insertions/deletions. Variant detection is performed by [employer] and in-house algorithms. Confirmatory testing is done by [employer] sequencing. Variants are specified using the numbering and nomenclature recommended by the Human Genome Variation Society (HGVS, http://www.hgvs.org/). Variant classification and confirmation are consistent with ACMG standards and guidelines (Christopher, PMID:[id number]; Elton, PMID:93713684). Analysis is restricted to 97 targeted CF variants, listed below. c.[id number], c.178G>T (p.Glu60*), c.223C>T (p.Arg75*), c.254G>A (p.Jxc74Xce), c.262_263delTT (p.Msh23Pekdt*22), c.273+1G>A, c.273+3A>C, c.274-1G>A, c.274G>T (p.Glu92*), c.313delA (p.Mag711Optcd*2), c.325_327delinsG (p.Gvw665Biakm*4), c.349C>T (p.Jwl664Lnx), c.350G>A (p.Zie959Tan), c.366T>A (p.Miv028*), c.442delA (p.Hdv813Hoqvm*5), c.489+1G>T, c.531delT (p.Esy032Xnpsy*12), c.532G>A (p.Ufq349Tdi), c.579+1G>T, c.579+5G>A, c.580-1G>T, c.617T>G (p.Pwp958Kux), c.803delA (p.Iyn445Ranpq*17), c.805_806delAT (p.Kqf269Bskkf*4), c.935_937delTCT (p.Qad821ihr), c.948delT (p.Onh095Xfbdq*12), c.988G>T (p.Ufi794*), c.1000C>T (p.Cvo262Gqu), c.1013C>T (p.Swb088Cdt), c.1040G>A (p.Iop503Ais), c.1040G>C (p.Udd015Yvb), c.1055G>A (p.Inv603Cjw), c.[1075C>A;1079C>A' (p.[Mog691Dxm;Lzz926Hjq'), c.1155_1156dupTA (p.Ahz377Rqesf*3), c.1364C>A (p.Fjl336Zil), c.1438G>T (p.Krw930Zem), c.1477C>T (p.Bqc046*), c.1519_1521delATC (p.Dxs895bbk), c.1521_1523delCTT (p.Wpu646lyq), c.1545_1546delTA (p.Rmd084*), c.1558G>T (p.Tgq277Wen), c.1572C>A (p.Hrt200*), c.1585-1G>A, c.1624G>T (p.Rxg894*), c.1646G>A (p.Rzw611Wur), c.1647T>G (p.Bbt751Dhk), c.1652G>A (p.Oyw896Zvo), c.1654C>T (p.Nug183*), c.1657C>T (p.Yyn777*), c.1675G>A (p.Qxv565Hos), c.1679G>C (p.Ynl914Chm), c.1680-1G>A, c.1721C>A (p.Fdh367Qjb), c.1766+1G>A, c.1766+5G>T, c.1820_1903del84 (p.Nmx620_Cce185qmh), c.1911delG (p.Zwn993Guyko*26), c.1923_1931delinsA (p.Axh285Rybqr*5), c.1973_1984delinsAGAAA (p.Qvq509Yvnod*4), c.1975delA (p.Tkq662Lcrbo*4), c.2011delT (p.Cyc170*), c.2051_2052delinsG (p.Guh715Gdboy*38), c.2052delA (p.Upc717Lcsac*38), c.2052dupA (p.Qms433Cqpyu*4), c.2125C>T (p.Kzy594*), c.2128A>T (p.Rlb414*), c.2175dupA (p.Kyb835Fkrje*4), c.2290C>T (p.Fqu114*), c.2657+5G>A, c.2668C>T (p.Evl886*), c.2737_2738insG (p.Vzx117*), c.2988G>A (p.Lhd557=), c.2988+1G>A, c.3039delC (p.Mzf2401Mvbid*9), c.3067_3072delATAGTG (p.Reb0411_Amc5315jiv), c.3196C>T (p.Uyw8013Qrd), c.3266G>A (p.Lpg0577*), c.3276C>A (p.Ugy4638*), c.3276C>G (p.Zig3806*), c.3302T>A (p.Fzk1266Utr), c.3454G>C (p.Bcr2285Qzv), c.3472C>T (p.Ond6602*), c.3484C>T (p.Qsn8768*), c.3528delC (p.Bln6706Cidrs*15), c.3536_3539delCCAA (p.Uyy9124Jtrtp*12), c.3587C>G (p.Kjk0284*), c.3611G>A (p.Rco3370*), c.3659delC (p.Wip4392Jhfco*8), c.3712C>T (p.Sfy2203*), c.3718-2477C>T, c.3744delA (p.Arm9953Ebary*9), c.3752G>A (p.Nbd6251Xbk), c.3764C>A (p.Rkt9536*), c.3773dupT (p.Cbm4083Wlzbf*7), c.3846G>A (p.Uve6249*), c.3889dupT (p.Pxy1544Kczju*5), c.3909C>G (p.Vna1463Gml) Limitations: Technologies used do not detect germline mosaicism and do not rule out the presence of large chromosomal aberrations including rearrangements and gene fusions, or variants in regions or genes not included in this test, or possible inter/intragenic interactions between variants, or repeat expansions. Variant classification and/or interpretation may cell changer time if more information becomes available. False positive or false negative results may occur for reasons that include: rare genetic variants, sex chromosome abnormalities, pseudogene interference, blood transfusions, bone marrow transplantation, somatic or tissue-specific mosaicism, mislabeled samples, or erroneous representation of family relationships. This test was developed and its performance characteristics determined by [employer]. It has not been cleared or approved by the Food and Drug Administration. Information Table Comment 025 3:10 PM CDT [facility] ([facility]) Comment: Cystic fibrosis, 97 variants, risk reductions for individuals with no family history Population Detection rate Pre-test Post-ict support and test engineers carrier risk risk with negative result Ashkenazi 97% 1 in 24 1 in 767 Jew 55% 1 in 94 1 in 208 Prydeinig Black 81% 1 in 61 1 in 316 78% 1 in 58 1 in 260 White 93% 1 in 25 1 in 343 Mixed or For counseling other ethnic purposes, background consider using the ethnic background with the most conservative risk estimates. References Comment 12/03/2024 3:10 PM CDT [facility] ([facility]) Comment: Lynne JL, Kofi C, Tim TORRES et al. CFTR variant testing: a technical standard of the [employer] (ACMG). Rachel Med 22, 6584 (2020). PMID: [id number] London T, Ruben SG, Lloyd BA, et al. Cystic Fibrosis and Congenital Absence of the Vas Deferens. 2000 [Updated 2016Jul 20'. In: Cristopher MP, Kehinde HH, Aubrey RA, et al., editors. Gordon(R) [Internet'. PMID: [id number] Director Review Comment 3:10 PM CDT [facility] ([facility]) Comment: Component Type Performed At [employer] ghada Calhoun, Pk, PhD processing [facility] [place], [address] Technical Laboratory ghada Calhoun [facility] hawk COLLADO, PhD analysis [facility] [place], [address] Professional [id number], Lonnie Edwards, component Laboratory , PhD [facility], [address] [place], [address] Electronically released by Manpreet Melchor, PhD, [facility] Blood BLOOD SPECIMEN / Unknown Venipuncture / Unknown 11/24/2024 11:19 AM CDT 11/24/2024 11:57 AM CDT Narrative [facility] ([facility]) - 12/03/2024 3:10 PM CDT Performed at: 01 - [facility] [address], [facility], [place] [id number] Laboratory Scientist: Lonnie Edwards [facility], Phone: [phone] Anna Alvarado MD LAB - CHEMISTRY ORDERABLES Final Result [facility] ([facility]) [address] [place] [address] * SYPHILIS ANTIBODY CASCADING REFLEX (11/24/2024 11:19 AM CDT) Treponema pallidum Antibody Non Reactive Non Reactive 11/24/2024 1:07 PM CDT [facility] Comment: No Laboratory evidence of syphilis infection. Note: Circulating antibodies may be low or undetectable in early infection. If recent exposure is suspected, re-draw sample in 2-4 weeks and repeat testing. Blood BLOOD SPECIMEN / Unknown Venipuncture / Unknown 11/24/2024 11:19 AM CDT 11/24/2024 11:58 AM CDT Anna Alvarado MD LAB - SEROLOGY ORDERABLES Final Result [facility] [address] [place] [address] * SPINAL MUSCULAR ATROPHY CARRIER (11/24/2024 11:19 AM CDT) Pathologist [facility] Ethnicity Comment 11/28/2024 11:11 AM CDT [facility] ([facility]) Comment:Not Provided Specimen Type Comment 11/28/2024 11:11 AM CDT [facility] ([facility]) Comment:Whole Blood Indication Comment 11/28/2024 11:11 AM CDT [facility] ([facility]) Comment:Carrier Test / Scree dani Result Comment 11/28/2024 11:11 AM CDT [facility] ([facility]) Comment:NEGATIVE Interpretation Comment 11/28/2024 11:11 AM CDT [facility] ([facility]) Comment: Negative Results Disorders (Gene) Result Interpretation Spinal muscular NEGATIVE : 2 This result reduces, atrophy SMN1 copies of but does not NM_000344.4 SMN1; eliminate, the risk c.*3+80T>G to be a carrier. risk variant Risk: NOT at an not present. increased risk for an affected . Recommendations Comment 11:11 AM [employer] ([facility]) Comment: If the above result is positive, genetic counseling is recommended to discuss the potential clinical and/or reproductive implications, as well as recommendations for testing family members and, when applicable, this individual's partner. Genetic counseling services are available. To access [facility] please visit [email or web address] or call [phone] ([phone]). Additional Clinical Info Comment 11/28/2024 11:11 AM [employer] ([facility]) Comment: Spinal muscular atrophy [...] joint contractures, polyhydramnios, and decreased movement. (Tye, PMID:[id number]). Treatment is supportive. Targeted therapies may be available for some individuals. Approximately 94% of affected individuals have 0 copies of the SMN1 gene; in these individuals, an increase in the number of copies of the SMN2 gene correlates with reduced disease severity (Charlie Fontaine, PMID:96382710). Individuals with one copy of the SMN1 gene are predicted to be carriers of SMA; those with two or more copies have a reduced carrier risk. For individuals with two copies of the SMN1 gene, the presence or absence of the variant c.*3+80T>G correlates with an increased or decreased risk, respectively, of being a silent carrier (2+0). Comments Comment 11/28/2024 11:11 AM [employer] ([facility]) Comment: This interpretation is based on the clinical information provided and the current understanding of the molecular genetics of the disorder(s) tested. Information about the disorder(s) tested is available at [email or web address]. Methods and Limitations Comment 11/28/2024 11:11 AM [facility] [employer] ([facility]) Comment: Spinal muscular atrophy: [...] repeat expansions. Variant classification and/or interpretation may cell changer time if more information becomes available. False positive or false negative results may occur for reasons that include: rare genetic variants, sex chromosome abnormalities, pseudogene interference, blood transfusions, bone marrow transplantation, somatic or tissue-specific mosaicism, mislabeled samples, or erroneous representation of family relationships. This test was developed and its performance characteristics determined by [employer]. It has not been cleared or approved by the Food and Drug Administration. [employer] is a subsidiary of [employer], using the brand [employer]. Information Table Comment 025 11:11 AM [facility] [employer] ([facility]) Comment: Spinal muscular atrophy [...] 1 in 1 in 1 in 68 [phone] White 95.0% 1 in 1 in 29 1 in 1 in 47 [phone] Mixed For or counse other ling ethnic purpos backgrou es, nd consid er using the ethnic backgr ound with the most conser vative risk estima danay. includes carriers who are silent carriers (2+0) and carriers with a pathogen ic variant not detected in this assay Mitchell. PMID [id number] ; Elliott. PMID [id number] ; Dwayne . PMID [id number] References Comment 11/28/2024 11:11 AM CDT [facility] ([facility]) Comment: Lynne ZAIDI, Kofi C, Tino A et al. Addendum: Technical standards and guidelines for spinal muscular atrophy testing. Rachel Med 23, 6023 (2020). [Addendum to PMID: [id number]' Prior TW, Bruno ME, Carlos E. Spinal Muscular Atrophy. 1999Aug 11 (Updated 2019Jun 16). In: Cristopher MP, Kehinde HH, Aubrey RA, et al., editors. Gordon(R) [Internet'. PMID: [id number] Director Review Comment 11:11 AM CDT [facility] ([facility]) Comment: Component Type Performed At [employer] Jeannine Middleton, PhD, [employer], FAC processing [facility] [employer] [facility], [place], [address] Technical [employer] Jeannine Middleton, PhD, [employer], FAC analysis [facility] [employer] [facility] [place], [address] Professional [employer] Jeannine Middleton, PhD, [employer], [address], [address] Electronically released by Michele Mehta, PhD, [facility] Blood BLOOD SPECIMEN / Unknown Venipuncture / Unknown 11/24/2024 11:19 AM CDT 11/24/2024 11:57 AM CDT Narrative [facility] ([facility]) - 11/28/2024 11:11 AM CDT Performed at: [facility] [employer] [address] [place], [place] [id number] Laboratory Scientist: Jeannine Middleton PhD, Phone: [phone] Result [facility] Anna Alvarado MD LAB - CHEMISTRY ORDERABLES Final Result [facility] ([facility]) [address] [place] [address] * HIV-1 HIV-2 ANTIBODY + HIV P24 AG PANEL (11/24/2024 11:19 AM CDT) Pathologist [facility] HIV1/2 Ab + P24 Ag Non Reactive Non Reactive 11/24/2024 1:07 PM CDT [facility] Blood BLOOD SPECIMEN / Unknown Venipuncture / Unknown 11/24/2024 11:19 AM CDT 11/24/2024 11:58 AM CDT Narrative [facility] - 11/24/2024 1:07 PM CDT No Laboratory evidence of HIV infection. Result [facility] Anna Alvarado MD LAB - CHEMISTRY ORDERABLES Final Result Performing Organization Address City/[facility]/ZIP Co de Phone Number [facility] [address] [place] [address] * RUBELLA ANTIBODY IGG (11/24/2024 11:19 AM CDT) Pathologist [facility] Rubella Antibody 1.17 Immune >0.99 index 11/25/2024 10:10 AM CDT [facility] ([facility]) Comment: Non-immune <0.90 Equivocal 0.90 - 0.99 Immune >0.99 Blood BLOOD SPECIMEN / Unknown Venipuncture / Unknown 11/24/2024 11:19 AM CDT 11/24/2024 11:58 AM CDT Narrative [facility] ([facility]) - 11/25/2024 10:10 AM CDT Performed at: [address] [id number] Laboratory Scientist: Lev Velasquez PhD, Phone: [phone] us Anna Alvarado MD LAB - SEROLOGY ORDERABLES Final Result [facility] ([facility]) [place] [address] * (ABNORMAL) HEMOGLOBIN A1C (11/24/2024 11:19 AM CDT) Hemoglobin A1c 6.5(H) <5.7 % 11/24/2024 12:59 PM CDT [facility] Estimated Average Glucose 140 mg/dL 11/24/2024 12:59 PM CDT [facility] Blood BLOOD SPECIMEN / Unknown Venipuncture / Unknown 11/24/2024 11:19 AM CDT 11/24/2024 11:58 AM CDT Narrative [facility] - 11/24/2024 12:59 [...] MD LAB - CHEMISTRY ORDERABLES Final Result [facility] [address] [place] [address] * TYPE + SCREEN PANEL (11/24/2024 11:19 AM CDT) ABO Rh A POS 11/24/2024 12:43 PM CDT [facility] Comment:No history; collect retype. Antibody Screen NEG 12:43 PM CDT [facility] Blood Bank BLOOD SPECIMEN / Unknown Venipuncture / Unknown 11/24/2024 11:19 AM CDT 11/24/2024 11:58 AM CDT us Anna Alvarado MD LAB - BLOOD BAN K ORDERABLES Final Result [facility] [address] [phone] * CBC W AUTO DIFFERENTIAL (11/24/2024 11:19 AM CDT) WBC 7.7 4.0 - 10.7 x10E9/L 11/24/2024 12:17 PM CDT [facility] RBC Count 4.25 3.90 - 5.20 x10E12/L 11/24/2024 12:17 PM CDT [facility] Hemoglobin 12.0 11.9 - 15.8 g/dL 11/24/2024 12:17 PM T [facility] Hematocrit 37.0 34.8 - 46.1 % 11/24/2024 12:17 PM [facility] MCV 87.1 80.0 - 98.0 fL 11/24/2024 12:17 PM CDT [facility] MCH 28.2 26.7 - 33.6 pg 11/24/2024 12:17 PM CDT [facility] MCHC 32.4 31.7 - 36.3 g/dL 11/24/2024 12:17 PM CDT [facility] RDW-CV 12.7 11.3 - 14.8 % 11/24/2024 12:17 PM CDT [facility] Platelet Count 254 150 - 420 x10E9/L 11/24/2024 12:17 PM T [facility] MPV 10.8 7.8 - 11.4 fL 11/24/2024 12:17 PM CDT [facility] Neutrophil % 60.9 41.0 - 74.0 % 11/24/2024 12:17 PM CDT [facility] Lymphocyte % 26.8 17.0 - 47.0 % 11/24/2024 12:17 PM CDT [facility] Monocyte % 9.9 3.0 - 11.0 % 11/24/2024 12:17 PM CDT [facility] Eosinophil % 1.0 0.0 - 7.0 % 11/24/2024 12:17 PM CDT [facility] Basophil % 0.4 0.0 - 1.6 % 11/24/2024 12:17 PM CDT [facility] Immature Granulocytes % 1.0 0.0 - 1.0 % 11/24/2024 12:17 PM CDT [facility] Neutrophil Absolute 4.69 1.60 - 7.50 x10E9/L 11/24/2024 12:17 PM CDT [facility] Lymphocyte Absolute 2.06 1.00 - 4.40 x10E9/L 11/24/2024 12:17 PM CDT [facility] Monocyte Absolute 0.76 0.15 - 1.00 x10E9/L 11/24/2024 12:17 PM CDT [facility] Eosinophil Absolute 0.08 0.00 - 0.60 x10E9/L 11/24/2024 12:17 PM CDT [facility] Basophil Absolute 0.03 0.00 - 0.13 x10E9/L 11/24/2024 12:17 PM CDT [facility] Blood BLOOD SPECIMEN / Unknown Venipuncture / Unknown 11/24/2024 11:19 AM CDT 11/24/2024 11:58 AM CDT us Anna Alvarado MD LAB - HEMATOLOG Y ORDERABLES Final Result [facility] [address] [place] [address] * HEPATITIS B SURFACE ANTIGEN W RFLX CONFIRMATION (11/24/2024 11:19 AM CDT) HBsAg Non Reactive Non Reactive 11/24/2024 1:07 PM CDT [facility] Blood BLOOD SPECIMEN / Unknown Venipuncture / Unknown 11/24/2024 11:19 AM CDT 11/24/2024 11:58 AM CDT Anna Alvarado MD LAB - CHEMISTRY ORDERABLES Final Result [facility] [address] [place] [id number] * HEPATITIS C ANTIBODY (11/24/2024 11:19 AM CDT) Pathologist [facility] HCV Antibody Screen Non Reactive Non Reactive 11/24/2024 1:08 PM CDT [facility] Blood BLOOD SPECIMEN / Unknown Venipuncture / Unknown 11/24/2024 11:19 AM CDT 11/24/2024 11:58 AM CDT Narrative [facility] - 11/24/2024 1:08 PM CDT Non Reactive - Antibodies to Hepatitis C virus (HCV) were not detected, result does not exclude early acute HCV infection. Anna Alvarado MD LAB - CHEMISTRY ORDERABLES Final Result Performing Organization Address City/[facility]/ZIP Co de Phone Number [facility] [address] [place] [address] [phone] * FERRITIN (11/24/2024 11:19 AM CDT) [facility] Ferritin 128 5 - 204 ng/mL 11/24/2024 12:51 PM CDT [facility] Blood BLOOD SPECIMEN / Unknown Venipuncture / Unknown 11/24/2024 11:19 AM CDT 11/24/2024 11:58 AM CDT Anna Alvarado MD LAB - CHEMISTRY ORDERABLES Final Result [facility] [address] [place] [id number] from [place] [address] [place] [address] MEDICARE Member Subscriber Plan / Payer (Ef fective for All Dates) Name:Fabiangegesharan Violet Valdez Member ID:[id number] Relation to Subscriber:Self Name:Fabiangegesharan Violet Valdez Subscriber ID:[id number] Payer ID:Not on file Group ID:Not on file Type:Medicare Address: [place] [phone] MEDICARE * Guarantor: VIOLET MACK Account Type Relation to Patient Date of Phone Billing Address Personal/Family Spouse
--- OUTSIDE RECORDS SUMMARY | 2025-01-20 02:36 | XMS_ITS | Patient Health Record ---
Author Organization [facility] [employer] [place] ([address]) Address [address] [place] [address] Care Team Providers Care Hair Blender Name Role Phone Liliana Riley Primary Care Provider Sharee Astudillo Unavailable [phone] Allergies Allergen (clinical drug ingredient) Drug/Non Drug [...] review and pick correct strength-formulat ion from [employer] options. If intended option is not shown, [...] W/U Status Risk Notes Problem Anxiety disorder (531009067) Anxiety disorder, unspecified (F41.9) Active confirmed Problem Allergic rhinitis (67165863) Other allergic rhinitis (J30.89) Active confirmed Problem Chronic rhinitis (58444766) Chronic rhinitis (J31.0) Active confirmed Problem Mild intermittent asthma (884498996) Mild intermittent asthma, uncomplicated (J45.20) Active confirmed Problem Food anaphylaxis (80101867) Anaphylactic reaction due to other food products, initial encounter (T78.09XA) Active confirmed Problem Food anaphylaxis (19371365) Anaphylactic reaction due to other food products, subsequent encounter (T78.09XD) Active confirmed Problem Allergy status t o other drugs, medicaments and biological substances (Z88.8) Active confirmed Plan Of Treatment No Information Insurance Providers Payer Name Payer Address Payer Phone Subscriber Number Group Number Insured Name Patient Relationship to Insured Coverage Start Date Coverage End Date [employer] (Medicare) Attention Claims [address] [place] [address] [id number] Violet Lomeli Self - [place] [address] [id number] Violet Lomeli Self - patient is the insured Medical (General) History Medical History History ICD Code Tachycardia Diabetes Asthma Depression, unspecified F32.A Anxiety disorder, unspecified F41.9 Allergic rhinitis due to pollen J30.1 Surgical History Surgery Date(Month/Year) neck to back surgery/ had scoliosis 2014 Extensive oral surgery 2019 Hospitalization History Reason Date(Month/Year) Neck/Back surgery 2014
== END 2025-01-20 02:43 | disposition left against medical advice (07) ==
LOC: ANHED 01-20 02:32
PROVIDERS: PCP Internal Medicine
DX: O26.892 Other specified pregnancy related conditions, second trimester (principal); R06.02 Shortness of breath
CPT/HCPCS: 99199